=== PATIENT | female | born 1970 | race Caucasian/White ===

== ENCOUNTER → 2016-08-11 | Outpatient (CLI) | payer BC ==
[2014-04-24 13:10] VITALS: BP 114/76
[~2016-08-11] MED LIST: ALPR1TAB2 PO; ATOR40TA59 PO; CARV12.52 PO; CYCL10TA2 PO; DILT120T4 PO; FLUT1DIS IH; MONT10TA6 PO; PROM25TA10 PO; TOPI100T39 PO; [UNRECOGNIZED DRUG - CODE] TP
--- NOTE | 2016-08-11 14:25 | RAD ---
DATE: 08/11/16 EXAM: DIGITAL DIAGNOSTIC BILATERAL HISTORY: Nipple retraction on the right side while laying down. Patient had a cyst aspiration in the left breast recently COMPARISON: Screening mammogram from [facility] performed on 07/22/15 This study was interpreted with the benefit of Computerized Aided Detection (CAD). TECHNIQUE: CC and MLO views of both breasts are obtained FINDINGS: The breast tissue density is [B, ] . Heterogeneously dense breast parenchyma. There are no dominant suspicious masses, suspicious microcalcifications or evidence of architectural distortion. Stable appearing calcifications and nodularities are redemonstrated in both breasts. Skin and nipples are intact IMPRESSION: Benign findings. In regards to symptoms of nipple retraction while laying down, patient may be followed up clinically. BI-RADS CATEGORY: 2 BENIGN FINDING(S) RECOMMENDED FOLLOW-UP: 12M 12 MONTH FOLLOW-UP PQRS compliance statement: Patient information was entered into a reminder system with a target due date for the next mammogram. Mammography is a sensitive method for finding small breast cancers, but it does not detect them all and is not a substitute for careful clinical examination. A negative mammogram does not negate a clinically suspicious finding and should not result in delay in biopsying a clinically suspicious abnormality. "Our facility is accredited by the [employer] Mammography Program."
--- NOTE | 2016-08-11 14:44 | RAD ---
DATE: 08/11/16 EXAM: Digital diagnostic bilateral mammogram and right breast ultrasound HISTORY: Nipple retraction on the right side while laying down. Patient had a cyst aspiration in the left breast recently COMPARISON: Screening mammogram from [facility] performed on 07/22/15 Bilateral mammogram This study was interpreted with the benefit of Computerized Aided Detection (CAD). TECHNIQUE: CC and MLO views of both breasts are obtained FINDINGS: The breast tissue density is [B, ] . Heterogeneously dense breast parenchyma. There are no dominant suspicious masses, suspicious microcalcifications or evidence of architectural distortion. Stable appearing calcifications and nodularities are redemonstrated in both breasts. Skin and nipples are intact Right breast ultrasound: Target sonographic evaluation of the retroareolar region of the right breast is performed and images are obtained. Normal fibroglandular densities are seen. No solid or cystic mass lesions are identified. IMPRESSION: Benign bilateral mammograms and right breast ultrasound. In regards to symptoms of nipple retraction while laying down, patient may be followed up clinically. BI-RADS CATEGORY: 2 BENIGN FINDING(S) RECOMMENDED FOLLOW-UP: 12M 12 MONTH FOLLOW-UP PQRS compliance statement: Patient information was entered into a reminder system with a target due date for the next mammogram. Mammography is a sensitive method for finding small breast cancers, but it does not detect them all and is not a substitute for careful clinical examination. A negative mammogram does not negate a clinically suspicious finding and should not result in delay in biopsying a clinically suspicious abnormality. "Our facility is accredited by the [employer] Mammography Program."
== END | disposition home or self-care (01) ==
LOC: MAMMO 13:04
PROVIDERS: ATTEND Surgery
DX: N64.53 Retraction of nipple (principal); R92.0 Mammographic microcalcification found on diagnostic imaging of breast
CPT/HCPCS: 76641; G0204; 77066

== ENCOUNTER → 2016-12-17 | Outpatient (CLI) | payer BC ==
[2014-04-24 13:10] VITALS: BP 114/76
[~2016-12-17] MED LIST changes: -TOPI100T39 PO; +TOPI100T42 PO
--- NOTE | 2016-12-17 10:34 | RAD ---
DATE: 12/17/2016 EXAM: DIGITAL DIAGNOSTIC LT HISTORY: Follow-up COMPARISON: 08/11/2016. Note is made of a Susan's examination in June 29, 2016 This study was interpreted with the benefit of Computerized Aided Detection (CAD). FINDINGS: Breast Density: SCATTERED The breast parenchyma shows scattered fibroglandular densities. Breast parenchyma level B. There is not been a significant change in the appearance of the breast. Subtle calcifications on the cc view behind the nipple are noted appearing similar. 2 nodular densities medially in the breast on the CC view appear unchanged new Follow-up bilateral examination suggested in June of this year IMPRESSION: Benign findings BI-RADS CATEGORY: 2 BENIGN FINDING(S) RECOMMENDED FOLLOW-UP: 6M 6 MONTH FOLLOW-UP PQRS compliance statement: Patient information was entered into a reminder system with a target due date 06/28/2017 for the next mammogram. Mammography is a sensitive method for finding small breast cancers, but it does not detect them all and is not a substitute for careful clinical examination. A negative mammogram does not negate a clinically suspicious finding and should not result in delay in biopsying a clinically suspicious abnormality. "Our facility is accredited by the [employer] Mammography Program."
== END | disposition home or self-care (01) ==
LOC: MAMMO 10:06
PROVIDERS: ATTEND Surgery
DX: R92.0 Mammographic microcalcification found on diagnostic imaging of breast (principal)
CPT/HCPCS: G0206; 77065

== ENCOUNTER → 2017-08-01 | Outpatient (CLI) | payer BC | END | disposition home or self-care (01) | LOC: MAMMO 13:27 | DX: Z12.31 Encounter for screening mammogram for malignant neoplasm of breast (principal) | CPT/HCPCS: 77067 ==

== ENCOUNTER → 2017-08-05 | Outpatient (CLI) | payer BC | END | disposition home or self-care (01) | LOC: MAMMO 10:52 | DX: N60.02 Solitary cyst of left breast (principal) | CPT/HCPCS: 76641; 77065 ==

== ENCOUNTER → 2017-08-12 | Outpatient (CLI) | payer BC | END | disposition home or self-care (01) | LOC: US 10:12 | DX: N63.20 Unspecified lump in the left breast, unspecified quadrant (principal) | CPT/HCPCS: 19081; 76942; 77065; 88305; 88361; C1713 ==

== ENCOUNTER 2017-08-25 07:43 | Day surgery (SDC) | payer BC ==
[~2017-08-25 07:43] MED LIST changes: -ALPR1TAB2 PO; -ATOR40TA59 PO; -CARV12.52 PO; -CYCL10TA2 PO; -DILT120T4 PO; -FLUT1DIS IH; +HYDROmorphone 2 MG/ML VIAL IV; +LIDOCAINE 1% PF 2 ML VIAL. ID; -MONT10TA6 PO; +PROCHLORPERAZINE 10 MG/2 ML VIAL. IV; -PROM25TA10 PO; -TOPI100T42 PO; -[UNRECOGNIZED DRUG - CODE] TP; +fentaNYL PF VIAL 100 MCG/2 ML VIAL IV
[2017-08-25] MEDS: IV RINGERS,LACTATED 1000ML 1,000 ML IV ×2 (08:10)
[2017-08-25] MEDS ORDERED: PROPOFOL 20 ML IV ×4 (09:29→10:42)
[2017-08-25] MEDS ORDERED: ROCURONIUM 50 MG/5 ML VIAL. ×2 (09:29)
[2017-08-25] MEDS ORDERED: LIDOCAINE 2% PF Vial for OR 5 ML VIAL. ×2 (09:29)
[2017-08-25] MEDS ORDERED: MIDAZOLAM HCL/PF 2 MG/2 ML VIAL. ×2 (09:30)
[2017-08-25] MEDS ORDERED: fentaNYL PF VIAL 100 MCG/2 ML VIAL ×2 (09:30)
[2017-08-25] MEDS: LIDOCAINE WITH 8.4% SOD BICARB 3 ML DISP.SYRIN. INJ ×2 (09:30)
[2017-08-25] MEDS ORDERED: SUCCINYLCHOLINE 200 MG/10 ML VIAL. ×2 (09:30)
[2017-08-25] MEDS: ISOSULFAN BLUE 50 MG/5 ML VIAL. SQ ×2 (10:35)
[2017-08-25] MEDS ORDERED: ePHEDrine PF IN SALINE 50 MG/5 ML DISP.SYRIN IV (10:38)
[2017-08-25] MEDS ORDERED: ONDANSETRON PF 4 MG/2 ML VIAL. ×2 (10:42)
[2017-08-25] MEDS ORDERED: FAMOTIDINE 20 MG/2 ML VIAL ×2 (10:42)
[2017-08-25] MEDS ORDERED: DEXAMETHASONE SOD PHOS 20 MG/5 ML VIAL. ×2 (10:42)
[2017-08-25] MEDS: fentaNYL PF VIAL 100 MCG/2 ML VIAL IV ×8 (12:13→13:04)
[2017-08-25] MEDS: MORPHINE SULFATE 2 MG/ML DISP.SYRIN. IV ×4 (12:35→12:47)
[2017-08-25] MEDS: ONDANSETRON PF 4 MG/2 ML VIAL. IV ×2 (12:53)
[2017-08-25] MEDS: oxyCODONE/APAP 5/325 1 TAB TABLET PO ×2 (13:07)
== END 2017-08-25 13:53 | disposition home or self-care (01) ==
LOC: SURG 07:43
DX: C50.912 Malignant neoplasm of unspecified site of left female breast (principal); E78.00 Pure hypercholesterolemia, unspecified; I10 Essential (primary) hypertension; E66.9 Obesity, unspecified; M19.90 Unspecified osteoarthritis, unspecified site; F41.9 Anxiety disorder, unspecified; F32.9 Major depressive disorder, single episode, unspecified; F17.200 Nicotine dependence, unspecified, uncomplicated; Z72.0 Tobacco use; Z86.69 Personal history of other diseases of the nervous system and sense organs; Z98.890 Other specified postprocedural states; Z90.710 Acquired absence of both cervix and uterus; Z87.39 Personal history of other diseases of the musculoskeletal system and connective tissue
CPT/HCPCS: 38525; 38792; 88307; 88342; 96374; A4215; A9541; J0330; J0690; J1100; J2250; J2270; J2405; J2704; J3010; Q9968; S0028

== ENCOUNTER → 2017-09-15 | Outpatient (CLI) | payer BC ==
[2017-09-15] MEDS: IOHEXOL 240 MG/ML 50ML VIAL. PO (08:00)
[2017-09-15] MEDS: IOHEXOL 300 MG/ML 100ML VIAL. IV (09:23)
== END | disposition home or self-care (01) ==
LOC: NM 07:40
DX: C50.912 Malignant neoplasm of unspecified site of left female breast (principal); G44.52 New daily persistent headache (NDPH); J43.9 Emphysema, unspecified; N64.89 Other specified disorders of breast; R42 Dizziness and giddiness; Z98.890 Other specified postprocedural states; Z87.891 Personal history of nicotine dependence
CPT/HCPCS: 71260; 74177; 78306; 96374; A9503; Q9966; Q9967

== ENCOUNTER → 2017-09-16 | Outpatient (CLI) | payer BC ==
[~2017-09-16] MED LIST changes: +GADOBUTROL 10 MMOL/10 ML VIAL IV; -HYDROmorphone 2 MG/ML VIAL IV; +IOHEXOL 240 MG/ML 50ML VIAL.; +IOHEXOL 300 MG/ML 100ML VIAL.; -LIDOCAINE 1% PF 2 ML VIAL. ID; -PROCHLORPERAZINE 10 MG/2 ML VIAL. IV; -fentaNYL PF VIAL 100 MCG/2 ML VIAL IV
== END | disposition home or self-care (01) ==
LOC: MRI 10:58
DX: C50.912 Malignant neoplasm of unspecified site of left female breast (principal); G43.909 Migraine, unspecified, not intractable, without status migrainosus; J34.1 Cyst and mucocele of nose and nasal sinus
CPT/HCPCS: 70553

== ENCOUNTER → 2017-09-22 | Outpatient (CLI) | payer BC | END | disposition home or self-care (01) | LOC: ECHO 10:37 | DX: C50.912 Malignant neoplasm of unspecified site of left female breast (principal) | CPT/HCPCS: 93308 ==

== ENCOUNTER 2017-10-20 08:08 | Observation (INO) | payer BC ==
[~2017-10-20 08:08] MED LIST changes: -GADOBUTROL 10 MMOL/10 ML VIAL IV; -IOHEXOL 240 MG/ML 50ML VIAL.; -IOHEXOL 300 MG/ML 100ML VIAL.; +LIDOCAINE 1% PF 2 ML VIAL. ID; +ONDANSETRON PF 4 MG/2 ML VIAL. IV; +PROCHLORPERAZINE 10 MG/2 ML VIAL. IV; +fentaNYL PF VIAL 100 MCG/2 ML VIAL IV
[2017-10-20] MEDS ORDERED: HEPARIN for IV BOLUS 10,000 UNIT/10 ML VIAL. (08:27)
[2017-10-20] MEDS ORDERED: HEPARIN PF 500 UNIT/5 ML DISP.SYRIN. IV (08:27)
[2017-10-20] MEDS ORDERED: ONDANSETRON PF 4 MG/2 ML VIAL. (09:04)
[2017-10-20] MEDS ORDERED: DEXAMETHASONE SOD PHOS 20 MG/5 ML VIAL. (09:04)
[2017-10-20] MEDS ORDERED: LIDOCAINE 1% PF 5 ML VIAL. (09:04)
[2017-10-20] MEDS ORDERED: PROPOFOL 20 ML IV ×2 (09:04→09:58)
[2017-10-20] MEDS ORDERED: MIDAZOLAM HCL/PF 2 MG/2 ML VIAL. (09:05)
[2017-10-20] MEDS ORDERED: fentaNYL PF VIAL 100 MCG/2 ML VIAL ×4 (09:06→13:55)
[2017-10-20] MEDS: IV RINGERS,LACTATED 1000ML 1,000 ML IV (09:09)
[2017-10-20] MEDS ORDERED: SUCCINYLCHOLINE 200 MG/10 ML VIAL. (09:28)
[2017-10-20] MEDS ORDERED: ROCURONIUM 50 MG/5 ML VIAL. (09:29)
[2017-10-20] MEDS ORDERED: diphenhydrAMINE 50 MG/ML VIAL (09:52)
[2017-10-20] MEDS ORDERED: KETAMINE HCL 500 MG/10 ML VIAL. (09:52)
[2017-10-20] MEDS ORDERED: ceFAZolin 2GM PREMIX 2 GM/50 ML BAG IV (10:00)
[2017-10-20] MEDS: HEPARIN for IV BOLUS 10,000 UNIT/10 ML VIAL. IV (10:04)
[2017-10-20] MEDS: HEPARIN PF 500 UNIT/5 ML DISP.SYRIN. IV (10:04)
[2017-10-20] MEDS ORDERED: PHENYLEPHRINE in 0.9% NACL PF 1 MG/10 ML SYRINGE. IV (10:21)
[2017-10-20] MEDS ORDERED: PHENYLEPHRINE 10 MG/ML VIAL. (10:28)
[2017-10-20] MEDS ORDERED: ALBUTEROL SULFATE 2.5 MG/3 ML NEBU. (11:13)
[2017-10-20] MEDS ORDERED: GLYCOPYRROLATE 1 MG/5 ML VIAL. (11:14)
[2017-10-20] MEDS: BUPIVACAINE 0.25% 50 ML VIAL. (12:33)
[2017-10-20] MEDS ORDERED: oxyCODONE/APAP 5/325 1 TAB TABLET PO (12:45)
[2017-10-20] MEDS ORDERED: ONDANSETRON PF 4 MG/2 ML VIAL. IV (12:45)
[2017-10-20] MEDS ORDERED: 0.9 % SODIUM CHLORIDE 10 ML DISP.SYRIN. IV (12:45)
[2017-10-20] MEDS: fentaNYL PF VIAL 100 MCG/2 ML VIAL IV ×3 (13:18→13:59)
[2017-10-20] MEDS ORDERED: MORPHINE SULFATE 4 MG/ML DISP.SYRIN. (13:38)
[2017-10-20] MEDS: MORPHINE SULFATE 4 MG/ML DISP.SYRIN. IV ×5 (13:44→15:57)
[2017-10-20] MEDS: IV DEXTROSE 5%-LACT RINGERS 1,000 ML IV (15:00)
[2017-10-20] MEDS: KETOROLAC 15 MG/ML VIAL. IV (16:54)
[2017-10-20] MEDS: oxyCODONE/APAP 5/325 1 TAB TABLET PO (20:04)
[2017-10-21] MEDS: KETOROLAC 15 MG/ML VIAL. IV ×3 (00:32→12:00)
[2017-10-21] MEDS: IV DEXTROSE 5%-LACT RINGERS 1,000 ML IV (01:38)
[2017-10-21] MEDS: oxyCODONE/APAP 5/325 1 TAB TABLET PO ×3 (02:38→12:14)
== END 2017-10-21 12:30 | disposition home or self-care (01) ==
LOC: SURG 08:08 → 4 NORTH 13:00
PROC: 0HBV0ZZ Excision of Bilateral Breast, Open Approach (ICD-10-PCS; principal; 2017-10-20 09:40)
DX: C50.912 Malignant neoplasm of unspecified site of left female breast (principal); Z85.3 Personal history of malignant neoplasm of breast
CPT/HCPCS: 19303; 36556; 71045; 96374; 96376; C1788; G0378; G0379; J0330; J0690; J1100; J1200; J1644; J1885; J2250; J2270; J2370; J2405; J2704; J3010; J3490; J7120; J7613

== ENCOUNTER → 2017-10-31 | Outpatient (CLI) | payer BC ==
[2017-10-31 16:29] LABS: ADD MAN DIFF? NO
[2017-10-31 16:36] LABS: BASO # 0.1 x10^3/uL (0.0-0.2); BASO % 1 % (0-3); EOS # 0.6 x10^3/uL (0.0-0.7); EOS % 5 % (0-3); HEMATOCRIT 42.1 % (36.0-47.0); HEMOGLOBIN 14.4 g/dL (12.0-15.5); LYMPH # 2.6 x10^3/uL (1.0-4.8); LYMPH % 21 % (24-48); MEAN CORPUSCULAR HEMOGLOBIN 32 pg (25-35); MEAN CORPUSCULAR HGB CONC 34 g/dL (31-37); MEAN CORPUSCULAR VOLUME 93 fL (79-100); MONO # 0.8 x10^3/uL (0.0-1.1); MONO % 7 % (0-9); NEUT # 8.3 x10^3uL (1.8-7.7); NEUT % 67 % (31-73); PLATELET COUNT 258 x10^3/uL (140-400); RED BLOOD COUNT 4.54 x10^6/uL (3.50-5.40); RED CELL DISTRIBUTION WIDTH 14.1 % (11.5-14.5); WHITE BLOOD COUNT 12.4 x10^3/uL (4.0-11.0)
[2017-10-31 17:03] LABS: ALBUMIN 3.3 g/dL (3.4-5.0); ALBUMIN/GLOBULIN RATIO 0.9 (1.0-1.7); ALK PHOS 128 U/L (46-116); ALT (SGPT) 24 U/L (14-59); ANION GAP 10 (6-14); AST (SGOT) 19 U/L (15-37); BLOOD UREA NITROGEN 10 mg/dL (7-20); BUN/CREATININE RATIO 13 (6-20); CALCIUM 8.4 mg/dL (8.5-10.1); CARBON DIOXIDE 25 mmol/L (21-32); CHLORIDE 107 mmol/L (98-107); CREATININE 0.8 mg/dL (0.6-1.0); GFR 76.9; GLUCOSE 87 mg/dL (70-99); POTASSIUM 3.9 mmol/L (3.5-5.1); SODIUM 142 mmol/L (136-145); TOTAL BILIRUBIN 0.4 mg/dL (0.2-1.0)
[2017-11-03 07:50] LABS: CA 27.29 41.1 U/mL (0.0-38.6)
== END | disposition home or self-care (01) ==
LOC: LAB 15:51
DX: C50.412 Malignant neoplasm of upper-outer quadrant of left female breast (principal); Z17.1 Estrogen receptor negative status [ER-]
CPT/HCPCS: 36415; 80053; 85025; 86300

== ENCOUNTER → 2017-11-09 | Outpatient (CLI) | payer BC | END | disposition home or self-care (01) | LOC: US 13:53 | DX: C50.412 Malignant neoplasm of upper-outer quadrant of left female breast (principal); I10 Essential (primary) hypertension; E78.5 Hyperlipidemia, unspecified; E78.00 Pure hypercholesterolemia, unspecified; J43.9 Emphysema, unspecified; Z17.1 Estrogen receptor negative status [ER-]; Z87.891 Personal history of nicotine dependence | CPT/HCPCS: 76641 ==

== ENCOUNTER → 2018-03-15 | Outpatient (CLI) | payer BC ==
[2017-10-21 07:00] VITALS: BP 104/64
[~2018-03-15] MED LIST changes: +ALPR0.254 PO; +ALPR1TAB2 PO; +AMIT50TA PO; +ATOR40TA59 PO; +CARV12.52 PO; +CARV6.252 PO; +CONTRAST GIVEN. MC PRN; +CYAN10005 PO; +CYCL10TA2 PO; +DILT120T4 PO; +ELET40TA PO; +FLUT1DIS IH; +FLUT1DIS3 IH; +FLUT9.9S NS; +GABA-586 PO; +GADOBUTROL 10 MMOL/10 ML VIAL IV ONE; +IOHEXOL 240 MG/ML 50ML VIAL. PO ONE; +IOHEXOL 300 MG/ML 100ML VIAL. IV ONE; +IPRA3AMP29 NEB; +LEVO5TAB2 PO; -LIDOCAINE 1% PF 2 ML VIAL. ID; +MONT10TA6 PO; +OMEP40CA5 PO; -ONDANSETRON PF 4 MG/2 ML VIAL. IV; +OXYC-323 PO; +OXYC10TA PO; +PIRO20CA2 PO; +PROAIR HFA8.5 GM INH; -PROCHLORPERAZINE 10 MG/2 ML VIAL. IV; +PROM25TA10 PO; +TIZA4TAB PO; +TOPI100T42 PO; +TRIA1TAB2 PO; +VENL150C6 PO; +[UNRECOGNIZED DRUG - CODE] TP; -fentaNYL PF VIAL 100 MCG/2 ML VIAL IV
--- NOTE | 2018-03-15 13:59 | RAD ---
EXAM: CT Chest, Abdomen and Pelvis with IV contrast CLINICAL HISTORY: F/U BREAST CANCER, BONE PAIN COMPARISON: 09/15/2017 TECHNIQUE: Helical CT of the chest, abdomen and pelvis was performed following the administration of intravenous contrast. Oral contrast was administered. Axial, coronal and sagittal reformatted images were generated. ---PQRS compliance statement - One or more of the following individualized dose reduction techniques were utilized for this study: 1. Automated exposure control 2. Adjustment of the mA and/or kV according to patient size 3. Use of iterative reconstruction technique--- FINDINGS: Chest: The heart is not enlarged. Right chest Port-A-Cath tip terminates in the distal SVC. Changes of bilateral mastectomy are seen. No pericardial effusion. No pleural effusion or pneumothorax. Bilateral emphysematous changes are seen. No lobar consolidation. Minimal scarring/atelectasis in the lingula. No suspicious lung nodule or mass is identified. Abdomen and Pelvis: Scattered calcified granuloma are seen within the liver. No focal liver lesion. Relative hypoattenuation of the liver relative to the spleen may be seen with hepatic steatosis. Gallbladder is normal. No biliary ductal dilatation. Spleen is normal. Adrenal glands are normal. Pancreas is atrophic without pancreatic ductal dilatation or definite associated mass. The appendix is normal. Moderate colonic stool content is seen throughout the colon. Colonic diverticula are seen without evidence of acute diverticulitis. No abdominal or pelvic ascites. No abdominal or pelvic lymphadenopathy by size criteria. The bladder is decompressed with prominence of the bladder wall. Bones: Visualized osseous structures are unremarkable. No definite aggressive osseous lesion is identified. The bones may be better assessed by PET scan or bone scan given provided clinical history of bone pain. IMPRESSION: 1. Bilateral mastectomies are seen. No evidence of metastatic disease within the thorax, abdomen or pelvis. 2. No definite aggressive osseous lesion is identified. The bones may be better assessed by PET scan or bone scan given provided clinical history of bone pain. Electronically signed by: Jr Rodriguez MD (03/15/2018 1:56 PM) [id number]
--- NOTE | 2018-03-15 14:18 | RAD ---
MRI Brain with and without contrast History: Bilateral breast cancer Technique: Multiplanar, multi sequential pre and postcontrast MR imaging was performed of the brain. Contrast: 10 cc Gadavist Comparison: September 16, 2017 Findings: There is some motion degradation. There is no new abnormal intracranial enhancement, intra-axial mass effect, midline shift, extra-axial fluid collection. Ventricular size is stable, within normal limits. There is again minimal T2 and FLAIR hyperintense abnormality such as of the left periatrial white matter and left parietal white matter, no associated enhancement. There is preservation of the major arterial flow voids at the skull base. There is again tiny old left cerebellar lacunar infarct. There are small mucous retention cyst of the right sphenoid sinus as seen previously, also mucous retention cyst right maxillary sinus up to 9 mm. There is very minimal right maxillary sinus mucosal thickening. There is slightly disconjugate gaze. Mastoid air cells are aerated. There is nonspecific heterogeneous low signal of the marrow of the clivus as seen previously. Cerebellar tonsils are normal in location. There is no new abnormality of the small pituitary gland. Impression: 1. Intercranial findings are stable, no new abnormal intracranial enhancement. Minimal T2 and FLAIR hyperintense signal abnormality of the supratentorial parenchyma is unchanged, may be due to nonspecific gliosis. 2. There is again nonspecific heterogeneous low signal of the clivus. Electronically signed by: Bassem Valente MD (03/15/2018 2:15 PM) [facility]
--- NOTE | 2018-03-15 16:58 | RAD ---
Radionuclide bone scan, 03/15/2018: HISTORY: Breast cancer Whole-body imaging was performed following IV injection of 25.1 mCi of technetium 99m MDP. Comparison is made to a study from 09/15/2017. The following findings are delineated: 1. Increased activity at the shoulders and knees is unchanged and is compatible with arthritis. 2. Activity of the radionuclide about the skeleton and major joints is otherwise symmetric. No other osseous abnormality is seen. 3. Normal activity is present in both kidneys and the bladder. IMPRESSION: Stable radionuclide bone scan without evidence of osseous metastatic disease. Electronically signed by: Chandan Maynard MD (03/15/2018 4:55 PM) [facility]
== END | disposition home or self-care (01) ==
LOC: NM 09:37
PROVIDERS: ATTEND Internal Medicine Hematology & Oncology
DX: K57.30 Diverticulosis of large intestine without perforation or abscess without bleeding (principal); K75.3 Granulomatous hepatitis, not elsewhere classified; J34.1 Cyst and mucocele of nose and nasal sinus; I10 Essential (primary) hypertension; E78.00 Pure hypercholesterolemia, unspecified; J43.9 Emphysema, unspecified; Z85.3 Personal history of malignant neoplasm of breast; Z90.710 Acquired absence of both cervix and uterus; Z87.891 Personal history of nicotine dependence; Z87.39 Personal history of other diseases of the musculoskeletal system and connective tissue; Z86.69 Personal history of other diseases of the nervous system and sense organs; Z82.49 Family history of ischemic heart disease and other diseases of the circulatory system
CPT/HCPCS: 70553; 71260; 74177; 78306; 96374; A9503; A9585

== ENCOUNTER → 2018-04-06 | Day surgery (SDC) | payer BC ==
[~2018-04-06] MED LIST changes: -CONTRAST GIVEN. MC PRN; -GADOBUTROL 10 MMOL/10 ML VIAL IV ONE; -IOHEXOL 240 MG/ML 50ML VIAL. PO ONE; -IOHEXOL 300 MG/ML 100ML VIAL. IV ONE; +LIDOCAINE 2%/EPI 1:100,000 20 ML VIAL. IJ ONE; +TRIA1TAB3 PO
[2018-04-06 07:33] VITALS: BP 100/71
--- NOTE | 2018-04-06 08:46 | PDOC4 ---
Operative Note Operative Note Date: 04/06/2018 Preoperative diagnosis: Port-A-Cath in place right chest Stopper diagnosis: Same Procedure: Removal Port-A-Cath Surgeon: Julius Specimen: Port-A-Cath Dictation: Patient is a 48-year-old female being treated for breast cancer is no longer needing chemotherapy and wishes to have her port removed. Procedure removal report was explained to the patient detail was benefits were also discussed including bleeding infection alternatives to this procedure also discussed with patient seemed understanding gave both verbal and written consent to have the procedure performed. Patient was taken to the minor was room placed in supine position area on her right chest was prepped and draped usual sterile fashion using ChloraPrep and area over the port was injected with 2% lidocaine with epinephrine once this was anesthetized incision was made 15 blade scalpel was carried down through the subtendinous tissues down to the port which was grasped with hemostat sutures were cut with the 15 blade scalpel and the port removed without any difficulties. Was sent for pathology gross inspection only. Wound was then closed in a single layer running 4-0 subcuticular Monocryl Mastisol Steri-Strips and island dressing were applied. She tolerated procedure well was discharged home in stable condition all sponge instrument needle counts listed as correct estimated blood loss less than 5 mL NIKHIL JOSHI MD Apr 06, 2018 08:46
--- NOTE | 2018-04-10 10:08 | PATHOLOGY ---
[facility] Accession Number: [id number] . 01 Material submitted: . PORT A CATH . 01 Clinical history: . No longer needs port Patient would like it back "return to [facility]" . 02 Diagnosis: Port-A-Cath (gross only) with focal attached fibroadipose tissue showing focal fibrosis and chronic inflammation. . (JPM:spa director; 04/07/2018) MBR/04/07/2018 . 02 Electronically signed: . Tu Cagle MD, Pathologist NPI- [id number] . 01 Gross description: . The specimen is received fresh, labeled "Britt Rausch, Port-A-Cath", is a purple, heart-shaped port measuring 2.5 x 2.2 x 1.0 cm with inscription "BARD", "[id number]" and inverted "TC" and an attached white single lumen tubing measuring 21.0 cm in length with a 0.1 cm diameter. Attached to the port there is a meehan-pink soft tissue measuring 1.0 x 0.5 x 0.3 cm. The soft tissue is entirely submitted in A1. Photographs are taken. ([facility]; 04/06/2018) [facility] . 02 Pathologist provided ICD-10: Z45.2 . 02 CPT . 983372 Specimen Comment: A courtesy copy of this report has been sent to Specimen Comment: [phone]. Specimen Comment: Report sent to Performed at: 01 [facility] [address], [place] [id number] MD Aki Mackey MD Phone: [phone] Performed at: 02 [facility] [address] [place], [place] [id number] MD Tu Cagle MD Phone: [phone]
== END | disposition home or self-care (01) ==
LOC: SURG 07:09
PROVIDERS: ATTEND Surgery
DX: Z45.2 Encounter for adjustment and management of vascular access device (principal); C50.919 Malignant neoplasm of unspecified site of unspecified female breast; Z79.899 Other long term (current) drug therapy; J45.909 Unspecified asthma, uncomplicated; F32.9 Major depressive disorder, single episode, unspecified; E78.00 Pure hypercholesterolemia, unspecified; I47.1 Supraventricular tachycardia; G43.909 Migraine, unspecified, not intractable, without status migrainosus; Z90.710 Acquired absence of both cervix and uterus; Z98.890 Other specified postprocedural states; Z90.13 Acquired absence of bilateral breasts and nipples; Z82.5 Family history of asthma and other chronic lower respiratory diseases; Z83.49 Family history of other endocrine, nutritional and metabolic diseases; Z82.49 Family history of ischemic heart disease and other diseases of the circulatory system; F17.210 Nicotine dependence, cigarettes, uncomplicated
CPT/HCPCS: 36590; 88300; J3490

== ENCOUNTER → 2018-05-09 | Outpatient (CLI) | payer BC ==
[2018-04-06 07:33] VITALS: BP 100/71
[~2018-05-09] MED LIST changes: -LIDOCAINE 2%/EPI 1:100,000 20 ML VIAL. IJ ONE
--- NOTE | 2018-05-09 15:47 | KCIC ---
Bone densitometry 05/09/2018 11:30 AM Indication: History of radiation therapy. Adult fracture. Comparison Study: None available Discussion: Bone Densitometry was performed with dual photon absorption of the lumbar spine and left proximal femur. Lumbar Spine: Bone average density is 0.998 g/cm2 for L1-L4. T-Score is -0.4. Left proximal femur: Bone average density is 0.986g/cm2. T-Score is 0.4. IMPRESSION: Normal bone mineral density Note: Definitions established by the World Health Organization: Normal: T-score is -1.0 or above. Osteopenia: T-score is between -1.0 and -2.5. Osteoporosis: T-score is -2.5 or below. Electronically signed by: Earl Cartagena MD (05/09/2018 3:45 PM) [facility]
== END | disposition home or self-care (01) ==
LOC: KCIC DEXA 11:47
PROVIDERS: ATTEND Internal Medicine Hematology & Oncology
DX: Z13.820 Encounter for screening for osteoporosis (principal); Z85.3 Personal history of malignant neoplasm of breast; Z92.3 Personal history of irradiation; Z87.81 Personal history of (healed) traumatic fracture; Z78.0 Asymptomatic menopausal state
CPT/HCPCS: 77080

== ENCOUNTER → 2018-08-11 | Outpatient (CLI) | payer BC ==
[2018-04-06 07:33] VITALS: BP 100/71
[~2018-08-11] MED LIST changes: +ALBU2.5V8 INH; +ALPR0.5T PO; +ANAS1TAB PO; +BUPR100T11 PO; +CARV12.511 PO; -CARV12.52 PO; +CARV6.2511 PO; -CARV6.252 PO; +CONTRAST GIVEN. MC PRN; +CYAN-25 PO; -CYAN10005 PO; +ERGO500027 PO; -GABA-586 PO; +GABA300C18 PO; +GABA600T7 PO; +IOHEXOL 240 MG/ML 50ML VIAL. PO ONE; +IOHEXOL 300 MG/ML 100ML VIAL. IV ONE; +MONT10TA49 PO; -MONT10TA6 PO; -OXYC-323 PO; +OXYC1TAB15 PO; -PROAIR HFA8.5 GM INH; -TIZA4TAB PO; +TIZA4TAB2 PO; +VENL225T PO
--- NOTE | 2018-08-11 14:27 | RAD ---
EXAM: CT Chest, Abdomen and Pelvis with IV contrast CLINICAL HISTORY: Breast cancer, restaging COMPARISON: 03/15/2018, 09/15/2017 TECHNIQUE: Helical CT of the chest, abdomen and pelvis was performed following the administration of intravenous contrast. Axial, coronal and sagittal reformatted images were generated. ---PQRS compliance statement - One or more of the following individualized dose reduction techniques were utilized for this study: 1. Automated exposure control 2. Adjustment of the mA and/or kV according to patient size 3. Use of iterative reconstruction technique--- FINDINGS: Chest: The heart is not enlarged. No pericardial effusion. No mediastinal or hilar lymphadenopathy by size criteria. No axillary lymphadenopathy. No pleural effusion or pneumothorax. Bilateral emphysematous changes are seen. A 1 cm lung nodule is seen (series 2 image 25; series 5 image 30) in the lingula, new compared to prior CT 03/15/2018. Along the mastectomy incision of the right chest wall, several nodular densities are seen with central fat density. These are suspicious for fat necrosis. The largest measures approximately 1.8 cm. Mastectomy changes are seen within the left breast. Abdomen and Pelvis: A few calcified granulomas are seen within the spleen. No focal splenic lesion. Gallbladder is normal. No biliary ductal dilatation. Calcified granuloma are seen within the spleen. Adrenal glands are normal. Pancreas is unremarkable. Symmetric nephrograms. No focal renal lesion. No hydronephrosis. Bladder is unremarkable. Moderate colonic stool content is seen. The appendix is normal. No evidence of bowel obstruction. No abdominal pelvic lymphadenopathy. No abdominal pelvic ascites. Bones: No definite aggressive osseous lesion is identified. IMPRESSION: 1. A new 1 cm lung nodule is seen within the lingula. Given history of breast cancer, this is suspicious for metastatic disease. 2. No thoracic, abdominal or pelvic lymphadenopathy. 3. Nodularity along the right mastectomy incision with central fat density, may represent fat necrosis from prior surgery. Electronically signed by: Jr Rodriguez MD (08/11/2018 2:22 PM) [facility]
--- NOTE | 2018-08-11 15:57 | RAD ---
EXAM: US right anterior chest wall DATE: 08/11/2018 2:30 PM COMPARISON: CT chest abdomen pelvis 08/11/2018 INDICATION: Mass lesion, characterize and localize TECHNIQUE: Longitudinal and transverse imaging with intermittent Doppler sampling completed with attention to right anterior chest wall FINDINGS: In the region of palpable abnormality along the anterior right chest wall in the region of the right mastectomy scar, a 1.3 x 1 cm heterogeneously hypoechoic structure with irregular posterior shadowing is seen. Immediately adjacent to this there are several additional smaller nodular hypoechoic foci measuring up to 4-6 mm. IMPRESSION: 1. At least 3 distinct nodular densities are seen along the mastectomy scar in the right anterior chest wall, the largest measuring 1.3 x 1 cm. Fat was seen within these lesions on the CT performed same day and therefore findings may represent fat necrosis given recent surgery. However if there is persistent clinical concern for recurrence, these lesions would be amenable to image guided biopsy. Electronically signed by: Jr Rodriguez MD (08/11/2018 3:52 PM) [facility]
--- NOTE | 2018-08-14 10:21 | RAD ---
Examination: BONE SCAN WHOLE BODY History: Breast CA Comparison/Correlation: 30/07/2008 CT chest abdomen and pelvis with contrast Findings: 26 mCi technetium 99m MDP was intravenously administered for purposes of whole body bone scintigraphy. Uptake of radiotracer involving bony structures is unremarkable with no suspicious osteoblastic or osteoclastic process. Kidneys are visualized. Uptake about the knees corresponding to degenerative change again seen. Impression: No abnormal uptake to suggest interval bony metastatic disease. Electronically signed by: Don Galvez MD (08/14/2018 10:16 AM) [facility]
== END | disposition home or self-care (01) ==
LOC: NM 08:47
PROVIDERS: ATTEND Internal Medicine Hematology & Oncology
DX: C50.412 Malignant neoplasm of upper-outer quadrant of left female breast (principal); J43.9 Emphysema, unspecified; R91.1 Solitary pulmonary nodule; Z17.1 Estrogen receptor negative status [ER-]
CPT/HCPCS: 71260; 74177; 76604; 78306; 96374; A9503; Q9966; Q9967

== ENCOUNTER → 2018-08-24 | Outpatient (CLI) | payer BC ==
[2018-04-06 07:33] VITALS: BP 100/71
[~2018-08-24] MED LIST changes: -ALPR0.5T PO; -ANAS1TAB PO; -BUPR100T11 PO; -CONTRAST GIVEN. MC PRN; -CYAN-25 PO; +CYAN10005 PO; -ERGO500027 PO; -IOHEXOL 240 MG/ML 50ML VIAL. PO ONE; -IOHEXOL 300 MG/ML 100ML VIAL. IV ONE; -MONT10TA49 PO; +MONT10TA6 PO; +TIZA4TAB PO; -TIZA4TAB2 PO; -VENL225T PO
--- NOTE | 2018-08-24 13:45 | RAD ---
FDG tumor localization scan, PET/CT, 08/24/2018: History: Breast cancer, lung nodule Following IV injection of 11.0 mCi of 18 F-FDG, imaging was performed from the skull base to the proximal thighs. The noncontrast CT component was performed for attenuation correction and anatomic localization purposes rather than for primary diagnosis. The patient's blood glucose level at the time of injection was 101 MG/DL. The previous CT study demonstrated a 1 cm nodule in the lingula. Unfortunately it lies near the superolateral margin of the heart. The adjacent intense myocardial FDG uptake in conjunction with heart motion and difficulties in CT registration limited evaluation of this nodule on today's study. Allowing for the misregistration the nodule does appear to be mildly hypermetabolic with a maximum SUV of 2.9. There is moderately increased activity at the left hilum on the corrected FDG images which is not present on the uncorrected images. This probably represents an attenuation correction artifact related to calcified left hilar lymph nodes. No definite hypermetabolic mediastinal or hilar FDG uptake is seen. Physiologic activity is evident in the neck. No hypermetabolic cervical adenopathy is seen. There is mildly increased activity related to the skin skin and underlying subcutaneous soft tissues in the streaky pattern at both mastectomy sites. The pattern is not masslike. This probably represents postradiation change. Normal GI tract and urinary tract activity is present in the abdomen and pelvis. No hypermetabolic abdominal or pelvic lesion is seen. The marrow activity is generally heterogeneous, perhaps related to chemotherapy. No definite focal bony lesion is seen. IMPRESSION: 1. The lingular nodule is mildly hypermetabolic, although not optimally visualized due to cardiac related artifacts. A lung metastasis is suspected. 2. Mildly increased activity bilaterally at the mastectomy sites is probably post therapeutic. 3. No other significant FDG/PET abnormality is detected.
== END | disposition home or self-care (01) ==
LOC: PETSC 08:34
PROVIDERS: ATTEND Internal Medicine Hematology & Oncology
DX: R91.1 Solitary pulmonary nodule (principal); Z85.3 Personal history of malignant neoplasm of breast
CPT/HCPCS: 78815; A9552

== ENCOUNTER → 2018-08-24 | Outpatient (CLI) | payer OTHER ==
[2018-04-06 07:33] VITALS: BP 100/71
[~2018-08-24] MED LIST changes: +ALPR0.5T PO; +ANAS1TAB PO; +BUPR100T11 PO; +ERGO500027 PO; +VENL225T PO
== END | disposition home or self-care (01) ==
LOC: PF 07:42
PROVIDERS: ATTEND Surgery
DX: J44.9 Chronic obstructive pulmonary disease, unspecified (principal); F17.210 Nicotine dependence, cigarettes, uncomplicated
CPT/HCPCS: 94010; 94729

== ENCOUNTER → 2018-08-24 | Outpatient (CLI) | payer OTHER ==
[2018-04-06 07:33] VITALS: BP 100/71
[~2018-08-24] MED LIST changes: -ALPR0.5T PO; -ANAS1TAB PO; -BUPR100T11 PO; -ERGO500027 PO; -VENL225T PO
--- NOTE | 2018-08-24 11:15 | RAD ---
AP and Lateral Views of the Chest 08/24/2018 8:58 AM Indication: LUNG NODULE SEEN ON CT, HISTORY BREAST CANCER Comparison: CT of the chest abdomen and pelvis August 11, 2018. Findings: Mild interstitial coarsening is noted, similar comparison study. No new focal consolidation or infiltrate is identified. Heart size is normal. There is no evidence of pneumothorax or pleural effusion. No acute osseous abnormalities are identified. Impression: No radiographic evidence of acute cardiopulmonary process. Electronically signed by: Earl Cartagena MD (08/24/2018 11:12 AM) [facility]
--- NOTE | 2018-08-24 11:27 | RAD ---
AP and lateral view of the right knee 08/24/2018 8:58 AM Indication: RIGHT KNEE PAIN, ARTHRITIS Comparison: None Findings: There is no acute fracture or dislocation. Articular surfaces are uninterrupted and smooth. Soft tissues are unremarkable. Impression: No evidence of acute osseous abnormality. Electronically signed by: Earl Cartagena MD (08/24/2018 11:24 AM) [id number]
== END | disposition home or self-care (01) ==
LOC: RAD 07:48
PROVIDERS: ATTEND Surgery
DX: J43.9 Emphysema, unspecified (principal); M25.561 Pain in right knee; J98.4 Other disorders of lung; Z85.3 Personal history of malignant neoplasm of breast
CPT/HCPCS: 71046; 73560

== ENCOUNTER 2018-09-06 10:38 | Day surgery (SDC) | payer BC ==
[~2018-09-06] VITALS: Ht 165.1 cm; Wt 93.4 kg
[~2018-09-06 10:38] MED LIST changes: +ALPR0.5T PO; +ANAS1TAB PO; +BUPR100T11 PO; +ERGO500027 PO; +HYDROmorphone 2 MG/ML VIAL IV PRN; +IV RINGERS,LACTATED 1000ML 1,000 ML IV SCH; +LIDOCAINE 1% PF 2 ML VIAL. ID PRN; +MORPHINE SULFATE 4 MG/ML VIAL. IV PRN; +ONDANSETRON PF 4 MG/2 ML VIAL. IV PRN; +PROCHLORPERAZINE 10 MG/2 ML VIAL. IV PRN; +VENL225T PO; +fentaNYL PF VIAL 100 MCG/2 ML VIAL IV PRN
[2018-09-06] MEDS ORDERED: fentaNYL PF VIAL 100 MCG/2 ML VIAL ONE (11:51)
[2018-09-06] MEDS ORDERED: DEXAMETHASONE SOD PHOS 20 MG/5 ML VIAL. ONE (11:52)
[2018-09-06] MEDS ORDERED: MIDAZOLAM HCL/PF 2 MG/2 ML VIAL. ONE (11:52)
[2018-09-06] MEDS ORDERED: ONDANSETRON PF 4 MG/2 ML VIAL. ONE (11:52)
[2018-09-06] MEDS ORDERED: LIDOCAINE 2% PF 5 ML VIAL. ONE (11:52)
[2018-09-06] MEDS ORDERED: PROPOFOL 20 ML IV ONE (11:52)
[2018-09-06] MEDS ORDERED: BUPIVACAINE-EPI 0.25%-1:200000 MPF 30 ML VIAL. ONE (12:20)
[2018-09-06] MEDS ORDERED: HYDROcodone/APAP 5/325MG 1 TAB TABLET ONE (13:41)
[2018-09-06 14:20] VITALS: BP 106/68
--- NOTE | 2018-09-06 14:51 | PDOC4 ---
Operative Note Operative Note Date: 09/06/2018 Preoperative diagnosis: Right chest wall mass Postoperative diagnosis: Same Procedure: Excision of right chest wall mass Surgeon: Julius Specimen: Right chest wall mass Dictation: Patient is a 48-year-old female has had bilateral mastectomies for breast cancer and radiation recently was found to have a mass on the right chest wall beneath the well-healed mastectomy scar. Procedure of excision of mass was explained to the patient in detail risk benefits were also discussed including bleeding infection alternatives to this procedure also discussed with the patient who seemed to understand and gave both verbal and written consent to have the procedure performed. Patient was taken to the operating room placed in supine position general anesthesia was initiated was patient was asleep and intubated her right chest wall was prepped and draped in the usual sterile fashion using ChloraPrep. An area over the mass was injected with quarter percent Marcaine with epinephrine and elliptical incision of the skin was made with 15 blade scalpel this is carried down through the subcutaneous tissue using electrocautery to provide hemostasis the mass was completely excised using electrocautery and sent for pathology. The wound was then closed in 2 layers a deep layer running 3-0 Vicryl and the skin was reapproximate for septic or Monocryl Mastisol Steri-Strips and island dressing were applied. The mass size was approximately 3 x 3 cm. Estimated blood loss 10 mL NIKHIL JOSHI MD Sep 06, 2018 14:51
[2018-09-06] MEDS ORDERED: HYDROcodone/APAP 5/325MG 1 TAB TABLET PO ONE (15:00)
--- NOTE | 2018-09-08 15:07 | PATHOLOGY ---
[facility] Accession Number: [id number] . 01 Material submitted: . RIGHT CHEST WALL MASS . 01 Clinical history: . Right chest wall mass . 02 Diagnosis: Skin and subcutaneous tissue, "chest wall mass right", excision: - Fibroadipose tissue with fat necrosis, foreign body giant cells, and focal dystrophic calcifications. - Overlying skin with no pathologic diagnosis. (SKM/db; 09/08/2018) LBQ/09/08/2018 . 02 Electronically signed: . Bo Arias MD, Pathologist NPI- [id number] . 01 Gross description: . The specimen is received in formalin, labeled "YoungShirah, chest wall mass right" and consists of a segment of firm yellow fibroadipose tissue measuring 4.7 x 3.0 x 1.8 cm with an overlying meehan skin ellipse measuring 4.3 x 1.1 cm. The margins are inked black and it is serially sectioned to reveal a possible cyst/nodule with possible necrosis and surrounding dense white-hall fibrous tissue measuring 2.3 x 1.0 x 0.9 cm that grossly abuts the black inked margin. The possible nodule/cyst is entirely submitted in A1-A6. (SDY; 09/07/2018) SYU/SYU . 02 Pathologist provided ICD-10: R22.2 . 02 CPT . 222659 Specimen Comment: A courtesy copy of this report has been sent to Specimen Comment: [phone], . Specimen Comment: Report sent to / DR GRULLON Specimen Comment: A duplicate report has been generated due to demographic updates. Performed at: 01 [facility] [address] [place] [id number] MD Aki Mackey MD Phone: [phone] Performed at: [address] [id number] MD Juvenal Esquivel MD Phone: [phone]
== END 2018-09-06 14:20 | disposition home or self-care (01) ==
LOC: SURG 10:38
PROVIDERS: ATTEND Surgery
DX: M79.89 Other specified soft tissue disorders (principal); J45.909 Unspecified asthma, uncomplicated; F32.9 Major depressive disorder, single episode, unspecified; E78.00 Pure hypercholesterolemia, unspecified; I47.1 Supraventricular tachycardia; G43.909 Migraine, unspecified, not intractable, without status migrainosus; Z90.710 Acquired absence of both cervix and uterus; Z79.899 Other long term (current) drug therapy; Z98.890 Other specified postprocedural states; Z90.13 Acquired absence of bilateral breasts and nipples; Z82.49 Family history of ischemic heart disease and other diseases of the circulatory system; Z82.5 Family history of asthma and other chronic lower respiratory diseases; Z83.49 Family history of other endocrine, nutritional and metabolic diseases; F17.210 Nicotine dependence, cigarettes, uncomplicated
CPT/HCPCS: 21552; 88307; A7015; J0696; J1100; J2001; J2250; J2405; J2704; J3010

== ENCOUNTER → 2018-11-09 | Outpatient (CLI) | payer BC ==
[~2018-11-09] MED LIST changes: -HYDROmorphone 2 MG/ML VIAL IV PRN; -IV RINGERS,LACTATED 1000ML 1,000 ML IV SCH; -LIDOCAINE 1% PF 2 ML VIAL. ID PRN; -MORPHINE SULFATE 4 MG/ML VIAL. IV PRN; -ONDANSETRON PF 4 MG/2 ML VIAL. IV PRN; -PROCHLORPERAZINE 10 MG/2 ML VIAL. IV PRN; -fentaNYL PF VIAL 100 MCG/2 ML VIAL IV PRN
--- NOTE | 2018-11-09 12:00 | RAD ---
FDG tumor localization scan, PET/CT, 11/09/2018: History: Restaging breast/lung cancer Following IV injection of 14.3 mCi of 18 F-FDG, imaging was performed from the skull base to the proximal thighs. The noncontrast CT component was performed for attenuation correction and anatomic localization purposes rather than for primary diagnosis. The patient's blood glucose level at the time of injection was 119 MG/DL. Comparison is made to a study from 08/24/2018. Physiologic activity is present in the neck. No hypermetabolic neck lesion is seen. The small pulmonary nodule evident in the lingula on the previous study has nearly completely resolved. No abnormal FDG uptake is seen in this region. There is mildly increased FDG uptake within the posterolateral aspect of the left lower lobe corresponding to faint groundglass opacities. This probably represents mild inflammation. There are 2 foci of increased activity at the left hilum, the most prominent of these lies anteriorly and corresponds to an area of reno calcification. The maximum SUV is 4.6. A similar appearance was present on the previous study. Attenuation correction artifact is probably contributing to this appearance. There is currently a second smaller focus of mildly increased FDG uptake just posterior and superior to this first area. It demonstrates a maximum SUV of 3.6. The CT component shows no mass or definite noted in this region. There is mild residual FDG uptake within the soft tissues at the right mastectomy site, likely post therapeutic in nature. Normal GI tract and urinary tract activity is present in the abdomen and pelvis. No hypermetabolic abdominal or pelvic lesion is seen. IMPRESSION: 1. Nearly complete resolution of the previously seen lingular nodule. This nodule may have been inflammatory or this may represent a favorable response to therapy. 2. Mildly hypermetabolic groundglass infiltrate in left lung base which is likely inflammatory in nature. 3. Two small foci of mildly increased activity at the left hilum, one of which is unchanged and the other is new. The findings may be reactive in nature. Metastatic disease cannot be excluded. 4. Mild persistent increased subcutaneous activity at the right mastectomy site which is likely post therapeutic.
== END | disposition home or self-care (01) ==
LOC: PETSC 08:10
PROVIDERS: ATTEND Internal Medicine Hematology & Oncology
DX: C50.412 Malignant neoplasm of upper-outer quadrant of left female breast (principal); R91.8 Other nonspecific abnormal finding of lung field; Z17.1 Estrogen receptor negative status [ER-]; Z90.11 Acquired absence of right breast and nipple
CPT/HCPCS: 78815; A9552

== ENCOUNTER → 2018-11-23 | Outpatient (CLI) | payer BC ==
--- NOTE | 2018-11-23 15:41 | RAD ---
Focused ultrasound evaluation of the chest wall 11/23/2018 INDICATION: Palpable abnormality, right chest wall. Patient status post mastectomy Discussion: Focused ultrasound evaluation of the right chest omalley performed. Static images are submitted to PACS. Immediately superior to the mastectomy scar there are 3 small nodules correlating with the area of palpable concern as indicated by the patient. The largest measures 9 mm x 8 mm x 5 mm. The second measures 4 mm x 5 mm x 3 mm. The third measures 4 mm x 5 mm x 3 mm. These could represent small cyst, slightly typical lymph nodes. Metastatic disease, or local recurrence cannot be excluded on the basis of this exam. Vaguely increased uptake is seen on this area on PET scan. IMPRESSION: 3 small subcentimeter nodules in the area of palpable concern as indicated by the patient, as described above. Differential considerations include mildly atypical lymph nodes, metastatic disease, or focal recurrence. Electronically signed by: Earl Cartagena MD (11/23/2018 3:38 PM) [id number]
== END | disposition home or self-care (01) ==
LOC: US 14:29
PROVIDERS: ATTEND Internal Medicine Hematology & Oncology
DX: R91.8 Other nonspecific abnormal finding of lung field (principal); Z17.1 Estrogen receptor negative status [ER-]; Z90.12 Acquired absence of left breast and nipple
CPT/HCPCS: 76604

== ENCOUNTER → 2019-02-22 | Outpatient (CLI) | payer BC ==
[~2019-02-22] MED LIST changes: +CYAN-25 PO; -CYAN10005 PO; +MONT10TA49 PO; -MONT10TA6 PO; -TIZA4TAB PO; +TIZA4TAB2 PO
--- NOTE | 2019-02-22 11:42 | RAD ---
CLINICAL HISTORY: Breast cancer-type restaging INDICATION: Restaging. COMPARISON: Head CT 11/27/2018, 08/24/2018, CT chest abdomen pelvis 08/11/2018 TECHNIQUE: Location of scan: [facility] Radiopharmaceutical Dose: 15.4 mCi F-18 FDG intravenous Blood glucose at time of study: 97 FDG uptake time = 60 minutes. Images were obtained from the top of the head to the mid thighs. A low dose, noncontrast CT study was performed for the purpose of attenuation correction and anatomic localization. FINDINGS: Head and Neck: Physiologic activity is seen within the head and neck. Dental amalgam limits evaluation of portions of the head and neck. Chest: Hypermetabolic bilateral hilar and mediastinal lymph nodes are now seen. On the left the hypermetabolic lymph nodes have SUV max of 5.5 and on the right SUV max of 4.6. Given the noncontrast low-dose CT, the hilar lymph nodes are not well delineated. A 1.2 x 1 cm precarinal lymph node has an SUV max of 5.2. Bilateral emphysematous changes are seen. Bilateral groundglass opacities are seen, possibly atelectasis or superimposed infectious/inflammatory process. These regions of groundglass opacities are mildly hypermetabolic with an SUV max of 2.6. An 8 mm lingular nodule has an SUV max of 3.3. Small left pleural effusion, new compared to 11/09/2018. SUV max of the left pleural effusion measures 1.9. Abdomen and Pelvis: Physiologic activity is seen within the renal collecting systems, liver and bowel. Calcified granuloma are seen within the spleen and liver. Moderate colonic stool content is seen. Appendix is normal. No bowel obstruction. No hypermetabolic abdominal or pelvic lymphadenopathy. 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 Numerous hypermetabolic sclerotic lesions are seen throughout the osseous structures including bilateral proximal humeri, clavicles, ribs, scapulae, vertebral bodies sacrum, pelvis and bilateral proximal femurs. A tax compliance representative hypermetabolic, sclerotic focus within the right sacrum measures 1 cm with SUV max of 4.4. Reference SUV Values: Mediastinal SUV Max: 2.3 Liver SUV Max: 2.7 IMPRESSION: 1. Bilateral groundglass airspace opacities may be seen with infectious or inflammatory process. 2. Interval increase in hypermetabolic hilar and mediastinal lymphadenopathy are favored to represent progression of metastatic disease. However given the bilateral groundglass airspace opacities, reactive lymph nodes from infectious or inflammatory process are not excluded. 3. New hypermetabolic sclerotic lesions throughout the visualized osseous structures are consistent with metastatic disease. 4. Hypermetabolic lingular nodule measuring 8 mm is favored to be metastatic. 5. There is a new left pleural effusion without increased metabolic activity. Radiation Dosimetry: The radiopharmaceutical used for this exam delivers approximately 0.7 mSv/mCi (70 mRem/mCi) Source: ICRP Publication 106 Electronically signed by: Jr Rodriguez MD (02/22/2019 11:39 AM) [facility]
== END | disposition home or self-care (01) ==
LOC: PETSC 10:24
PROVIDERS: ATTEND Internal Medicine Hematology & Oncology
DX: C50.412 Malignant neoplasm of upper-outer quadrant of left female breast (principal); J43.9 Emphysema, unspecified; R91.8 Other nonspecific abnormal finding of lung field; J90 Pleural effusion, not elsewhere classified; K75.3 Granulomatous hepatitis, not elsewhere classified; D73.89 Other diseases of spleen; M89.8X0 Other specified disorders of bone, multiple sites; Z17.1 Estrogen receptor negative status [ER-]
CPT/HCPCS: 78815; A9552

== ENCOUNTER → 2019-02-28 | Outpatient (CLI) | payer BC ==
[~2019-02-28] MED LIST changes: +FAMO40TA57 PO; +GADOTERATE 7.5 MMOL/15ML VIAL. IVP ONE; +PROC10TA57 PO; +TOPI100T8 PO
--- NOTE | 2019-02-28 12:40 | RAD ---
MRI Brain with and without contrast History: Breast cancer, new bone cancer Technique: Multiplanar, multi sequential pre and postcontrast MR imaging was performed of the brain. Comparison: March 15, 2018 Findings: There is mild motion There is no evidence of recent infarct or cytotoxic edema. The ventricles, sulci, and cisterns are within normal limits in size and configuration. There is no significant midline shift, intraaxial mass effect, or focal abnormal extra-axial fluid collection. There is mild T2 and FLAIR hyperintense signal of the supratentorial parenchyma as seen previously such as of the left periatrial and parietal white matter and of the right frontal deep white matter. There is again tiny old left cerebellar lacunar infarct. There is no nodular parenchymal or leptomeningeal enhancement. There is preservation of the major intracranial flow-voids at the skull base. The cerebellar tonsils are normal in location. There is no significant abnormality of the pineal gland or pituitary gland. There is mucous retention cyst of the right sphenoid sinus, larger in interval up to 1.5 cm. There are also small bilateral maxillary sinus mucous retention cysts greater than previously, largest on the right about 1 cm. There is minimal fluid of the right mastoid air cells now present aerated on the left. There is some increased heterogeneity of the clivus concerning for underlying marrow replacing lesion. Impression: 1. There is no new abnormal intracranial enhancement. Minimal nonenhancing T2 and FLAIR hyperintense signal of the supratentorial parenchyma is overall similar, findings which may be due to nonspecific gliosis. 2. There is increased heterogeneity of the marrow of the clivus concerning for underlying marrow replacing lesion given history. Electronically signed by: Bassem Valente MD (02/28/2019 12:36 PM) [id number]
== END | disposition home or self-care (01) ==
LOC: MRI 11:08
PROVIDERS: ATTEND Internal Medicine Hematology & Oncology
DX: C50.412 Malignant neoplasm of upper-outer quadrant of left female breast (principal); I63.81 Other cerebral infarction due to occlusion or stenosis of small artery; J34.1 Cyst and mucocele of nose and nasal sinus; Z17.1 Estrogen receptor negative status [ER-]; Z87.891 Personal history of nicotine dependence; Z92.21 Personal history of antineoplastic chemotherapy
CPT/HCPCS: 70553; A9575

== ENCOUNTER 2019-03-06 08:29 | Outpatient (CLI) | payer BC ==
[2019-03-06] VITALS (12 sets, daily range): BP systolic 86–121; BP diastolic 49–72
[~2019-03-06] VITALS: Ht 162.6 cm; Wt 92.1 kg
[~2019-03-06 08:29] MED LIST changes: -FAMO40TA57 PO; -GADOTERATE 7.5 MMOL/15ML VIAL. IVP ONE; -PROC10TA57 PO; -TOPI100T8 PO
[2019-03-06 08:51] LABS: BASO # 0.1 x10^3/uL (0.0-0.2); BASO % 1 % (0-3); EOS # 0.6 x10^3/uL (0.0-0.7); EOS % 5 % (0-3); HEMOGLOBIN 14.7 g/dL (12.0-15.5); LYMPH # 1.7 x10^3/uL (1.0-4.8); LYMPH % 15 % (24-48); MEAN CORPUSCULAR HEMOGLOBIN 31 pg (25-35); MEAN CORPUSCULAR HGB CONC 34 g/dL (31-37); MEAN CORPUSCULAR VOLUME 91 fL (79-100); MONO # 0.8 x10^3/uL (0.0-1.1); MONO % 7 % (0-9); NEUT # 7.8 x10^3/uL (1.8-7.7); NEUT % 72 % (31-73); PLATELET COUNT 293 x10^3/uL (140-400); RED BLOOD COUNT 4.73 x10^6/uL (3.50-5.40); RED CELL DISTRIBUTION WIDTH 14.5 % (11.5-14.5); WHITE BLOOD COUNT 10.9 x10^3/uL (4.0-11.0)
[2019-03-06] MEDS ORDERED: FAMO40TA57 PO (08:52)
[2019-03-06] MEDS ORDERED: PROC10TA57 PO (08:52)
[2019-03-06] MEDS ORDERED: TOPI100T8 PO (08:52)
[2019-03-06 09:02] LABS: CALCIUM 8.5 mg/dL (8.5-10.1); CREATININE 0.9 mg/dL (0.6-1.0); GFR 66.8; POTASSIUM 3.5 mmol/L (3.5-5.1)
[2019-03-06 09:07] LABS: PROTHROMBIN TIME PATIENT 12.2 SEC (11.7-14.0)
[2019-03-06] MEDS ORDERED: LIDOCAINE WITH 8.4% SOD BICARB 3 ML DISP.SYRIN. ONE (10:14)
[2019-03-06] MEDS ORDERED: fentaNYL PF VIAL 100 MCG/2 ML VIAL ONE (10:19)
[2019-03-06] MEDS ORDERED: MIDAZOLAM HCL/PF 2 MG/2 ML VIAL. ONE (10:19)
[2019-03-06] MEDS ORDERED: LIDOCAINE WITH 8.4% SOD BICARB 3 ML DISP.SYRIN. IJ ONE (10:30)
[2019-03-06] MEDS ORDERED: MIDAZOLAM HCL/PF 2 MG/2 ML VIAL. IV ONE (10:30)
[2019-03-06] MEDS ORDERED: fentaNYL PF VIAL 100 MCG/2 ML VIAL IV ONE (10:30)
--- NOTE | 2019-03-06 10:56 | PDOC ---
MODERATE SEDATION ASSESSMENT RISKS/ALTERNATIVES Risks/Alternatives Risks and alternatives of this type of sedation and procedure discussed with: RISK/ALTERNATIVES: Patient H & P ON CHART H & P H & P on chart and reviewed for co-morbid conditions and appropriate labs. H&P ON CHART: Yes STATUS PREG STATUS ASSESSED: Yes MEDS/ALLERGIES REVIEWED Meds/Allergies Reviewed Medications and Allergies including time and route of recently administered narcotics and sedatives. MEDS/ALLERGIES REVIEWED: Yes ASA RATING ASA RATING: II AIRWAY ASSESSMENT Airway Assessment Airway patency, oral function limitations, presence of caps, crowns, dentures, partials, and ability to extend neck assessed. AIRWAY ASSESSMENT: Yes MALLAMPATI SCORE MALLAMPATI SCORE: II PRE-SEDATION ASSESSMENT PRE-SEDATION ASSESSMENT: Yes MIKE MAYORGA MD Mar 06, 2019 10:56
--- NOTE | 2019-03-06 10:57 | PDOC ---
BRIEF OPERATIVE NOTE Pre-Op Diagnosis diffuse osseous metastases Post-Op Diagnosis same Procedure Performed CT right iliac bone biopsy Surgeon Beau Anesthesia Type: Conscious Sedation Specimens Obtained 1 x 10g core Complications No immediate MIKE MAYORGA MD Mar 06, 2019 10:57
--- NOTE | 2019-03-06 10:58 | PDOC1 ---
History and Physical Date of Procedure Date of Admission History of Present Illness Reason for Visit osseous bone metastases Past Medical History Past Medical History see nursing pre-op assessment Current Medications Current Medications Current Medications Lidocaine/Sodium Bicarbonate (Buffered Lidocaine 1%) 3 ml STK-MED ONCE .ROUTE ; Start 03/06/19 at 10:14; Stop 03/06/19 at 10:14; Status DC Midazolam HCl (Versed) 2 mg STK-MED ONCE .ROUTE ; Start 03/06/19 at 10:19; Stop 03/06/19 at 10:19; Status DC Fentanyl Citrate (Fentanyl 2ml Vial) 100 mcg STK-MED ONCE .ROUTE ; Start 03/06/19 at 10:19; Stop 03/06/19 at 10:19; Status DC Lidocaine/Sodium Bicarbonate (Buffered Lidocaine 1%) 3 ml 1X ONCE IJ ; Start 03/06/19 at 10:30; Stop 03/06/19 at 10:31; Status DC Midazolam HCl (Versed) 2 mg 1X ONCE IV ; Start 03/06/19 at 10:30; Stop 03/06/19 at 10:31; Status DC Fentanyl Citrate (Fentanyl 2ml Vial) 100 mcg 1X ONCE IV ; Start 03/06/19 at 10:30; Stop 03/06/19 at 10:31; Status DC Active Scripts Active Reported Pepcid (Famotidine) 40 Mg Tablet 40 Mg PO HS Compazine (Prochlorperazine Maleate) 10 Mg Tablet 10 Mg PO Q6HRS Topiramate 100 Mg Tablet 2 Tab PO BID Venlafaxine Hcl Er (Venlafaxine Hcl) 225 Mg Tab.er.24 1 Tab PO DAILY Anastrozole 1 Mg Tablet 1 Tab PO DAILY Xanax (Alprazolam) 0.5 Mg Tablet 1 Tab PO PRN BID PRN Gabapentin 600 Mg Tablet 300 Mg PO TID Levocetirizine Dihydrochloride 5 Mg Tablet 5 Mg PO HS Carvedilol (Carvedilol) 6.25 Mg Tablet 6.25 Mg PO BIDWMEALS Oxycodone Hcl Immed.release (Oxycodone Hcl) 10 Mg Tablet 10 Mg PO Q6HRS PRN Relpax (Eletriptan Hbr) 40 Mg Tablet 40 Mg PO PRN PRN Flonase Allergy Relief (Fluticasone Propionate) 9.9 Ml [place].susp 2 Sprays NS DAILY Duoneb 0.5-3(2.5) Mg/3 Ml (Albuterol/Ipratropium) 3 Ml Ampul.neb 3 Ml NEB QID Omeprazole 40 Mg Capsule.dr 40 Mg PO DAILY Proair Hfa Inhaler (Albuterol Sulfate) 8.5 Gm Hfa.aer.ad 1 Puff INH PRN Q6HRS PRN Advair 250-50 Diskus (Fluticasone/Salmeterol) 1 Each Disk.w.dev 1 Inh IH BID Cyclobenzaprine Hcl 10 Mg Tablet 10 Mg PO TID PRN PRN Atorvastatin Calcium 40 Mg Tablet 20 Mg PO DAILY Singulair Tablet (Montelukast Sodium) 10 Mg Tablet 10 Mg PO HS Allergies Allergies: Coded Allergies: No Known Drug Allergies (Unverified , 09/06/18) Physical Exam Vital Signs Vital Signs Date Time Temp Pulse Resp B/P (MAP) Pulse Ox O2 Delivery O2 Flow Rate FiO2 03/06/19 10:50 95 14 97 Nasal Cannula 2.0 03/06/19 08:44 97.7 121/63 (82) 97.7 Other see nursing pre-op assessment Assessment Assessment multiple osseous metastases Plan Plan CT pelvic bone biopsy MIKE MAYORGA MD Mar 06, 2019 10:58
--- NOTE | 2019-03-06 12:56 | NUR ---
Discharge Note: JAMAAL GUERRERO Discharge instructions and discharge home medications reviewed with Patient and a copy given. All questions have been answered and understanding verbalized. The following instructions and handouts were given: moderate sedation, bone biopsy Discontinued lines : R FA PIV Patient discharged to [facility]
--- NOTE | 2019-03-07 10:35 | RAD ---
Procedure: CT-guided biopsy of the right iliac bone Clinical Indication: 48-year-old with multiple blastic osseous lesions suspicious for metastatic disease. Sedation: Conscious sedation was administered with a total intraprocedural ryzu-fp-nhvi time of 20 minutes. The patient was monitored by a qualified independent observer throughout the time of sedation. Please refer to the medical record for exact doses of medications utilized to achieve moderate sedation. Antibiotics: None Sterility: All elements of maximal sterile barrier technique including the use of a cap, mask, sterile gown, sterile gloves, large sterile sheet, appropriate hand hygiene, and 2% chlorhexidine for cutaneous antisepsis (or acceptable alternative antiseptic per current guidelines) were followed for this procedure. If ultrasound guidance was utilized, sterile ultrasound techniques were followed including use of a sterile probe cover. Consent: The procedure was explained in its entirety to the patient or the patients designated manufacturers representative by a member of the treatment team, including a discussion of the risks, benefits and commonly accepted alternatives to the procedure, as well as the expected consequences of no therapy whatsoever. Discussion of the risks included, but was not limited to, those that are most frequent and those that are rare but possibly severe or life-threatening, as well as the possibility of unforeseen complications. Technique and Findings: Following informed consent, the patient was prepped and draped in usual sterile fashion. Preliminary CT scan of the area of interest was performed. 1% lidocaine was used to achieve local anesthesia. A small dermatotomy was made. Under periodic CT surveillance, a 10-gauge automated bone biopsy needle was advanced into the posterior right iliac crest and directed towards a cluster of prominent blastic lesions. A long 10-gauge core bone biopsy specimen was then preserved in formalin. Hemostasis was achieved with manual compression following removal of the needle. Complications: No immediate Impression: 1. CT-guided right iliac bone biopsy as described. PQRS Compliance Statement: One or more of the following individualized dose reduction techniques were utilized for this examination: 1. Automated exposure control 2. Adjustment of the mA and/or kV according to patient size 3. Use of iterative reconstruction technique
--- NOTE | 2019-03-09 18:06 | PATHOLOGY ---
[facility] Accession Number: [id number] . 01 Material submitted: . pelvic bone - PELVIS BONE BIOPSY . 01 Clinical history: . Pelvic bone lesion . 02 Diagnosis: Segments of bone, image guided pelvic bone core biopsies: - METASTATIC ADENOCARCINOMA, POORLY DIFFERENTIATED. SEE COMMENT. LBQ/03/08/2019 . 02 Comment: Sections of the pelvic bone image guided core biopsy reveal segments of bone. There are focal areas of marrow replacement by a metastatic epithelial neoplasm. The tumor cells are generally present in solid nests and cords within a reactive desmoplastic stroma. The tumor cells have modest amounts of eosinophilic to clear cytoplasm, and possess enlarged, rounded to ovoid nuclei containing prominent nucleoli. Other areas of the marrow show hematopoietic cellular elements. The bony trabeculae focally appear thickened and sclerotic and are focally lined by osteoblasts. A panel of immunoperoxidase stains is obtained on block A1 and yields the following results: . Cytokeratin KEIRA: Tumor cells positive Cytokeratin 7: Tumor cells positive Cytokeratin 20: Tumor cells negative Mammaglobin: Tumor cells negative BCA-225: Few tumor cells positive KOLTON-3: Tumor cells positive TTF-1: Tumor cells negative . The morphologic and immunophenotypic findings are supportive of the diagnosis of metastatic poorly differentiated adenocarcinoma and are consistent with breast origin. Results are discussed with Dr. Melo on 03/09/19. The case is also examined by Dr. Arias, who concurs with the diagnosis. (JPM/db; 03/09/2019) . Special stains performed: Immunoperoxidase stains for cytokeratin KEIRA, CK7, CK20, mammaglobin, BCA-225, KOLTON-3 and TTF-1 . 02 Electronically signed: . Tu Cagle MD, Pathologist NPI- [id number] . 01 Gross description: . The specimen is received in formalin, labeled "Britt Rausch, pelvic bone biopsy", are three cylindrical segments of meehan-brown bone measuring 1.6 cm, 0.7 cm and 0.3 cm in length and with an average 0.2 cm diameter. The specimen is entirely submitted in A1 after decalcification (Immunocal). (SWS; 03/06/2019) SHS/SHS . 02 Pathologist provided ICD-10: C41.4 . 02 CPT . 364837, U23736, C57071, 101518 Specimen Comment: A courtesy copy of this report has been sent to Specimen Comment: [phone], , . Specimen Comment: Report sent to ,DR MELO / DR GRULLON Performed at: 01 [facility] [address], [place] [id number] MD Aki Mackey MD Phone: [phone] Performed at: 02 [facility] [address] [place], [place] [id number] MD Tu Cagle MD Phone: [phone]
== END 2019-03-06 12:58 | disposition home or self-care (01) ==
LOC: INTRAD 08:29
PROVIDERS: ATTEND Internal Medicine Hematology & Oncology
DX: M89.79 Major osseous defect, multiple sites (principal); Z79.01 Long term (current) use of anticoagulants
CPT/HCPCS: 20220; 36415; 77012; 80048; 85025; 85610; 99152; J2250; J3010

== ENCOUNTER 2019-04-16 10:04 | Outpatient (CLI) | payer BC ==
[2019-04-16] VITALS (11 sets, daily range): BP systolic 86–133; BP diastolic 62–90
[~2019-04-16] VITALS: Ht 162.6 cm; Wt 88.9 kg
[~2019-04-16 10:04] MED LIST changes: +FAMO40TA57 PO; +OMEP40CA45 PO; -OMEP40CA5 PO; +PROC10TA57 PO; +TOPI100T8 PO
[2019-04-16 10:24] LABS: BASO % 1 % (0-3); EOS # 0.2 x10^3/uL (0.0-0.7); EOS % 3 % (0-3); HEMATOCRIT 39.3 % (36.0-47.0); HEMOGLOBIN 13.3 g/dL (12.0-15.5); LYMPH # 1.3 x10^3/uL (1.0-4.8); LYMPH % 15 % (24-48); MEAN CORPUSCULAR HEMOGLOBIN 30 pg (25-35); MEAN CORPUSCULAR HGB CONC 34 g/dL (31-37); MEAN CORPUSCULAR VOLUME 88 fL (79-100); MONO # 0.7 x10^3/uL (0.0-1.1); MONO % 8 % (0-9); NEUT # 6.4 x10^3/uL (1.8-7.7); NEUT % 74 % (31-73); PLATELET COUNT 239 x10^3/uL (140-400); RED BLOOD COUNT 4.48 x10^6/uL (3.50-5.40); RED CELL DISTRIBUTION WIDTH 15.4 % (11.5-14.5); WHITE BLOOD COUNT 8.6 x10^3/uL (4.0-11.0)
[2019-04-16 10:38] LABS: PROTHROMBIN TIME PATIENT 15.5 SEC (11.7-14.0)
[2019-04-16 10:55] LABS: % BANDS 8 % (0-9); % EOS 2 % (0-5); % LYMPHS 11 % (24-48); % MONOS 9 % (0-10); % MYELOS 2 % (0-0); % PROS 1 % (0-0); % SEGS 67 % (35-66); PLT ESTIMATE ADEQUATE (ADEQUATE)
[2019-04-16 10:56] LABS: POLYCHROMASIA SLIGHT
[2019-04-16] MEDS ORDERED: OXYC20TA34 PO (11:24)
--- NOTE | 2019-04-16 12:25 | NUR ---
drainage was cloudy and yellow/slight green tinged Addendum: 04/16/19 at 1226 by ELBERT EDUARDO RN Amended: Links added.
--- NOTE | 2019-04-16 13:58 | RAD ---
Ultrasound-guided right-sided thoracentesis 04/16/2019 11:54 AM Indication: Lt Pleural Effusion Procedure: Informed consent was obtained. A timeout procedure was performed. Sonographic evaluation of the left chest was performed demonstrating moderate pleural effusion. The left posterior chest was prepped and draped in sterile fashion. 1% lidocaine without epinephrine was administered for local anesthesia. Real-time ultrasonographic guidance was used in passing a 5 [employer] catheter into the left pleural space. 1.7L of serosanguineous pleural fluid was removed. Samples of fluid were sent to the lab for further evaluation per ordering physician request. The catheter was removed and pressure held to achieve hemostasis. A sterile dressing was applied. No immediate complications were identified. The patient tolerated the procedure well. Impression: Left sided ultrasound-guided thoracentesis
--- NOTE | 2019-04-16 14:50 | NUR ---
pt upon arrival this am was visibly SOA. Her SPO2 on room air was 89-90%. applied to 2L n/c O2 which brought sats upto 92-98%. pt did not appear distressed post lt thoracentesis. she stated that she felt much better after procedure. kept O2 on pt till post cxray was done. cxray looked ok. removed O2 from pt and prepared her to be d/c'd. SPO2 on room air was ranging from 84-88% consistently. called Dr. Cartagena. he wanted pt's attending to be notified and to see if they wanted to do anything with patient. multiple calls made, messages left for pt's attending July BERNARD. Called Dr. Garcia when we could not get any response and his nurse wanted pt to go to ER because pt's SPO2's at the office had not been that low. discussed this with pt and her and she was ok with going to ER. gave pt her d/c instructions post thoracentesis and reapplied O2 at 2 l n/c. Dr. Cartagena came by to see pt before she went to ER. he agrees with going to ER to r/o any underlying issues. pt at that time admitted that she started on antibiotics Tuesday because she has been feeling so bad. Called ER and talked with Burak the charge master coordinator about what happened today and why she was coming over to ER so they could fast track her. took pt over to ER in her personal w/c accompanied by her and on 2l n/c. brought her to the front desk receptionist and gave them an update on her meds and last set of vital signs.
--- NOTE | 2019-04-16 16:31 | RAD ---
CHEST AP ONLY 04/16/2019 12:35 PM INDICATION: Postthoracentesis COMPARISON: 08/24/2018 TECHNIQUE: Portable frontal view of the chest is provided. FINDINGS: The cardiomediastinal silhouette is similar in appearance. Left perihilar nodular consolidative changes noted. There is a small left pleural effusion with adjacent compressive atelectasis versus infiltrate. No pneumothorax. No significant pulmonary vascular congestion. Right lung is clear. IMPRESSION: Status post left-sided thoracentesis without evidence for pneumothorax. There is small volume residual pleural fluid. Nodular consolidative change noted in the left perihilar distribution. Recommend follow-up to resolution. Electronically signed by: Sonia Duron MD (04/16/2019 4:29 PM) [facility]
== END 2019-04-16 14:40 | disposition home or self-care (01) ==
LOC: INTRAD 10:04
PROVIDERS: ATTEND Internal Medicine Hematology & Oncology
DX: J90 Pleural effusion, not elsewhere classified (principal); C50.412 Malignant neoplasm of upper-outer quadrant of left female breast; Z17.1 Estrogen receptor negative status [ER-]
CPT/HCPCS: 32555; 36415; 71045; 85007; 85025; 85610

== ENCOUNTER 2019-04-16 14:42 | Inpatient (IN) | payer BC ==
[~2019-04-16] VITALS: Ht 162.6 cm; Wt 92.5 kg
[~2019-04-16 14:42] MED LIST changes: +OXYC20TA34 PO
--- NOTE | 2019-04-16 15:41 | PHYS DOC ---
Past Medical History Past Medical History: Asthma, Migraines, Other Additional Past Medical Histor: CERVICAL CANCER, IRREGULAR HEARTBEAT Past Surgical History: Other Additional Past Surgical Histo: SINSUS, CERVICAL CANCER Alcohol Use: None Drug Use: None Adult General Chief Complaint Chief Complaint: OTHER COMPLAINTS [facility] HPI Patient is a 49 year old female who presents with complaining of low oxygen. Patient had bilateral breast cancer with bone metastases is in because of episodes of cough and shortness of breath diagnosed with pleural effusion. Patient had left thoracentesis for the first time today with complaining of shortness of breath before the procedure that improved after procedure. Patient had O2 sat of low 80s before and after the procedure and sent to ER for evaluation. Patient one pack a day smoker for multiple years and states she was not able to smoke for the last 1 week because of shortness of breath. Patient complaining of chronic dry cough. Patient denies chest pain, fever and chills, chest pain, history of DVT and PE. Review of Systems Review of Systems Constitutional: Denies fever or chills [] Eyes: Denies change in visual acuity, redness, or eye pain [] HENT: Denies nasal congestion or sore throat [] Respiratory: Reports cough and shortness of breath Cardiovascular: No additional information not addressed in HPI [] GI: Denies abdominal pain, nausea, vomiting, bloody stools or diarrhea [] : Denies dysuria or hematuria [] Musculoskeletal: Denies back pain or joint pain [] Integument: Denies rash or skin lesions [] Neurologic: Denies headache, focal weakness or sensory changes [] Endocrine: Denies polyuria or polydipsia [] All other systems were reviewed and found to be within normal limits, except as documented in this note. Current Medications Current Medications Current Medications Medications (Trade) Dose Ordered Sig/Farzana Start Time Stop Time Status Last Admin Dose Admin Acetaminophen (Tylenol) 500 mg PRN Q6HRS PRN 04/16/19 17:00 Acetaminophen/ Hydrocodone Bitart (Lortab 5/325) 1 tab PRN Q4HRS PRN 04/16/19 16:45 Albuterol/ Ipratropium (Duoneb) 3 ml RTQID 04/16/19 20:00 Alprazolam (Xanax) 0.25 mg PRN Q8HRS PRN 04/16/19 17:15 Atorvastatin Calcium (Lipitor) 20 mg QHS 04/16/19 21:00 Azithromycin (Zithromax) 500 mg 1X ONCE 04/16/19 17:15 04/16/19 17:16 DC 04/16/19 17:14 500 MG Budesonide (Pulmicort) 0.5 mg RTBID 04/16/19 20:00 Carvedilol (Coreg) 6.25 mg BIDWMEALS 04/16/19 17:00 Ceftriaxone Sodium (Rocephin) 1 gm 1X ONCE 04/16/19 17:30 04/16/19 17:31 Cetirizine HCl (ZyrTEC) 10 mg QHS 04/16/19 21:00 Cyclobenzaprine HCl (Flexeril) 10 mg TID PRN PRN 04/16/19 16:45 Famotidine (Pepcid) 40 mg QHS 04/16/19 21:00 Furosemide (Lasix) 40 mg 1X ONCE 04/16/19 17:30 04/16/19 17:31 Gabapentin (Neurontin) 300 mg TID 04/16/19 21:00 Guaifenesin (Robitussin Dm) 10 ml PRN Q6HRS PRN 04/16/19 16:45 Ketorolac Tromethamine (Toradol 15mg Vial) 15 mg PRN Q6HRS PRN 04/16/19 16:45 04/21/19 16:44 Methylprednisolone Sodium Succinate (SOLU-Medrol 125MG VIAL) 125 mg 1X ONCE 04/16/19 17:00 04/16/19 17:01 DC Montelukast Sodium (Singulair) 10 mg HS 04/16/19 21:00 Nicotine (Nicoderm Cq 21mg) 1 patch PRN DAILY PRN 04/16/19 17:15 Non-Formulary Medication (Fluticasone Propionate (Flonase Allergy Relief)) 2 sprays DAILY 04/17/19 09:00 UNV Non-Formulary Medication (Fluticasone/ Salmeterol (Advair 250-50 Diskus)) 1 inh BID 04/16/19 21:00 UNV Ondansetron HCl (Zofran) 4 mg PRN Q6HRS PRN 04/16/19 17:00 Oxycodone HCl (OxyCONTIN) 20 mg Q12HR 04/16/19 21:00 Oxycodone HCl (Roxicodone) 10 mg PRN Q6HRS PRN 04/16/19 17:00 Prochlorperazine Maleate (Compazine) 10 mg Q6HRS 04/16/19 18:00 Sumatriptan Succinate (Imitrex) 100 mg PRN Q2HR PRN 04/16/19 17:15 Topiramate (Topamax) 200 mg BID 04/16/19 21:00 Venlafaxine HCl (Effexor Xr) 225 mg DAILY 04/17/19 09:00 Zolpidem Tartrate (Ambien) 5 mg PRN QHS PRN 04/16/19 16:45 Allergies Allergies Allergies Coded Allergies Type Severity Reaction Last Updated Verified No Known Drug Allergies 09/06/18 No Physical Exam Physical Exam Constitutional: Well developed, well nourished, mild distress, non-toxic appearance. [] HENT: Normocephalic, atraumatic. Eyes: PERRLA, EOMI, conjunctiva normal, no discharge. [] Neck: Normal range of motion, no tenderness, supple, no stridor. [] Cardiovascular:Heart rate regular rhythm, no murmur [] Lungs & Thorax: Bilateral breath sounds clear to auscultation , O2 sat of 95% at room air[] Abdomen: Bowel sounds normal, soft, no tenderness, no masses, no pulsatile masses. [] Skin: Warm, dry, no erythema, no rash. [] Back: No tenderness, no CVA tenderness. [] Extremities: No tenderness, no cyanosis, no clubbing, ROM intact, no edema. [] Neurologic: Alert and oriented X 3, no focal deficits noted. [] Psychologic: Affect normal, judgement normal, mood normal. [] Current Patient Data Vital Signs Vital Signs Date Time Temp Pulse Resp B/P (MAP) Pulse Ox O2 Delivery O2 Flow Rate FiO2 04/16/19 15:59 90 Room Air 04/16/19 14:52 98.3 111 21 119/86 (97) 2.0 98.3 Lab Values Laboratory Tests Test 04/16/19 15:43 04/16/19 16:00 White Blood Count 8.7 x10^3/uL (4.0-11.0) Red Blood Count 4.53 x10^6/uL (3.50-5.40) Hemoglobin 13.4 g/dL (12.0-15.5) Hematocrit 39.8 % (36.0-47.0) Mean Corpuscular Volume 88 fL (79-100) Mean Corpuscular Hemoglobin 30 pg (25-35) Mean Corpuscular Hemoglobin Concent 34 g/dL (31-37) Red Cell Distribution Width 15.6 % (11.5-14.5) H Platelet Count 223 x10^3/uL (140-400) Neutrophils (%) (Auto) 76 % (31-73) H Lymphocytes (%) (Auto) 15 % (24-48) L Monocytes (%) (Auto) 7 % (0-9) Eosinophils (%) (Auto) 2 % (0-3) Basophils (%) (Auto) 1 % (0-3) Neutrophils # (Auto) 6.6 x10^3/uL (1.8-7.7) Lymphocytes # (Auto) 1.3 x10^3/uL (1.0-4.8) Monocytes # (Auto) 0.6 x10^3/uL (0.0-1.1) Eosinophils # (Auto) 0.2 x10^3/uL (0.0-0.7) Basophils # (Auto) 0.1 x10^3/uL (0.0-0.2) Sodium Level 138 mmol/L (136-145) Potassium Level 3.8 mmol/L (3.5-5.1) Chloride Level 102 mmol/L (98-107) Carbon Dioxide Level 25 mmol/L (21-32) Anion Gap 11 (6-14) Blood Urea Nitrogen 7 mg/dL (7-20) Creatinine 0.7 mg/dL (0.6-1.0) Estimated GFR (Cockcroft-Gault) 88.9 BUN/Creatinine Ratio 10 (6-20) Glucose Level 100 mg/dL (70-99) H Lactic Acid Level 1.0 mmol/L (0.4-2.0) Calcium Level 7.8 mg/dL (8.5-10.1) L Total Bilirubin 0.4 mg/dL (0.2-1.0) Aspartate Amino Transferase (AST) 48 U/L (15-37) H Alanine Aminotransferase (ALT) 50 U/L (14-59) Alkaline Phosphatase 414 U/L (46-116) H Troponin I Quantitative < 0.017 ng/mL (0.000-0.055) WK-Pcx-Y-Type Natriuretic Peptide 262 pg/mL (0-124) H Total Protein 7.0 g/dL (6.4-8.2) Albumin 2.4 g/dL (3.4-5.0) L Albumin/Globulin Ratio 0.5 (1.0-1.7) L O2 Saturation 89 % (92-99) L Arterial Blood pH 7.42 (7.35-7.45) Arterial Blood pCO2 at Patient Temp 33 mmHg (35-46) L Arterial Blood pO2 at Patient Temp 54 mmHg (75-108) L Arterial Blood HCO3 21 mmol/L (21-28) Arterial Blood Base Excess -2 mmol/L (-3-3) FiO2 21 Laboratory Tests 04/16/19 15:43 Laboratory Tests 04/16/19 15:43 EKG EKG EKG interpreted by me. EKG at 1641 showed sinus tachycardia at rate of 108, normal CT and QT intervals, poor R-wave progress in anteroseptal this, no acute ST and T-wave abnormalities. Radiology/Procedures Radiology/Procedures [facility] [address] [place] [address] IMAGING REPORT Signed PATIENT: JAMAAL GUERRERO ACCOUNT: [id number] : 1970 LOCATION: ER AGE: 49 SEX: F EXAM STATUS: REG ER ORD. PHYSICIAN: SHANDA WHITNEY MD REASON: hypoxia,low O2 SATS. PT HAD THORACENTESIS EARLIER TODAY. PROCEDURE: CHEST PA & LATERAL CHEST PA LATERAL 3:46 PM Clinical indications: Hypoxia. Low O2 saturation. Patient has had thoracentesis earlier today. Comparison: April 16, 2019 performed at 12:36 PM FINDINGS: Again seen is a small left-sided pleural effusion which is unchanged. Again seen are bilateral interstitial and nodular lung infiltrates or pulmonary edema. There has been an increase in infiltrate within the right infrahilar area and increase in infiltrate within the lateral left midlung zone and left lung base. No pneumothorax is seen. Heart size is mildly enlarged but stable. The mediastinum and pulmonary vasculature are stable. The left hilum is full and unchanged. IMPRESSION: Worsening bilateral lung infiltrates or pulmonary edema. Electronically signed by: Santiago Martinez MD (04/16/2019 4:05 PM) [id number] DICTATED and SIGNED BY: SANTIAGO MARTINEZ MD DATE: 04/16/19 1605 Course & Med Decision Making Course & Med Decision Making Pertinent Labs and Imaging studies reviewed. (See chart for details) Evaluation of patient in ER showed 49-year-old female patient with metastatic breast cancer and thoracentesis today presented to ER because of hypoxia report ed by her doctor's office. Patient had O2 sat of 89% on room air ABG 2 L of oxygen. Chest x-ray was questionable for infiltration or edema. Patient did not have any additional BMP. Patient treated with Rocephin. Patient requiring admission for further evaluation and treatment. Discussed with Dr. Madera who is in agreement with admission. Discussed findings and plan with patient and family, who acknowledge understanding and agreement. Dragon Disclaimer Dragon Disclaimer This electronic medical record was generated, in whole or in part, using a voice recognition dictation system. Departure Departure Impression: Primary Impression: Hypoxia Additional Impressions: CAP (community acquired pneumonia) Metastatic breast cancer Elevated liver function tests Hypoalbuminemia Disposition: ADMITTED INPATIENT (at 1641) Admitting Physician: PRADEEP (Dr Madera accepted admission at 1640) Condition: IMPROVED Referrals: EUSEBIO GRULLON (PCP) Problem Qualifiers Additional Impressions: CAP (community acquired pneumonia) Laterality: unspecified laterality Qualified Codes: J18.9 - Pneumonia, unspecified organism SHANDA WHITNEY MD Apr 16, 2019 15:41
[2019-04-16 15:59] LABS: BASO # 0.1 x10^3/uL (0.0-0.2); BASO % 1 % (0-3); EOS # 0.2 x10^3/uL (0.0-0.7); EOS % 2 % (0-3); HEMATOCRIT 39.8 % (36.0-47.0); HEMOGLOBIN 13.4 g/dL (12.0-15.5); LYMPH # 1.3 x10^3/uL (1.0-4.8); LYMPH % 15 % (24-48); MEAN CORPUSCULAR HEMOGLOBIN 30 pg (25-35); MEAN CORPUSCULAR HGB CONC 34 g/dL (31-37); MEAN CORPUSCULAR VOLUME 88 fL (79-100); MONO # 0.6 x10^3/uL (0.0-1.1); MONO % 7 % (0-9); NEUT # 6.6 x10^3/uL (1.8-7.7); NEUT % 76 % (31-73); PLATELET COUNT 223 x10^3/uL (140-400); RED BLOOD COUNT 4.53 x10^6/uL (3.50-5.40); RED CELL DISTRIBUTION WIDTH 15.6 % (11.5-14.5); WHITE BLOOD COUNT 8.7 x10^3/uL (4.0-11.0)
--- NOTE | 2019-04-16 16:07 | RAD ---
CHEST PA LATERAL 3:46 PM Clinical indications: Hypoxia. Low O2 saturation. Patient has had thoracentesis earlier today. Comparison: April 16, 2019 performed at 12:36 PM FINDINGS: Again seen is a small left-sided pleural effusion which is unchanged. Again seen are bilateral interstitial and nodular lung infiltrates or pulmonary edema. There has been an increase in infiltrate within the right infrahilar area and increase in infiltrate within the lateral left midlung zone and left lung base. No pneumothorax is seen. Heart size is mildly enlarged but stable. The mediastinum and pulmonary vasculature are stable. The left hilum is full and unchanged. IMPRESSION: Worsening bilateral lung infiltrates or pulmonary edema. Electronically signed by: Silviano Martinez MD (04/16/2019 4:05 PM) [id number]
[2019-04-16 16:13] LABS: CALCIUM 7.8 mg/dL (8.5-10.1); CREATININE 0.7 mg/dL (0.6-1.0); GFR 88.9; POTASSIUM 3.8 mmol/L (3.5-5.1)
[2019-04-16] MEDS ORDERED: IPRATRPIUM/ALBUTEROL 0.5/2.5MG 3 ML NEBU. NEB ONE (16:15)
[2019-04-16] MEDS ORDERED: methylPREDNISolone SOD SUCC PF 125 MG/2 ML VIAL. IV ONE ×2 (16:15→17:00)
[2019-04-16 16:16] LABS: BASE EXCESS ABG -2 mmol/L (-3-3); HCO3 ABG 21 mmol/L (21-28); PCO2 ABG 33 mmHg (35-46); PO2 ABG 54 mmHg (75-108); SAT O2 ABG 89 % (92-99)
[2019-04-16 16:18] LABS: FIO2 ABG 21
[2019-04-16 16:26] LABS: ALBUMIN 2.4 g/dL (3.4-5.0); ALBUMIN/GLOBULIN RATIO 0.5 (1.0-1.7); TOTAL BILIRUBIN 0.4 mg/dL (0.2-1.0)
[2019-04-16] MEDS ORDERED: KETOROLAC 15 MG/ML VIAL. IV PRN (16:45)
[2019-04-16] MEDS ORDERED: guaiFENesin DM 200MG/20MG 10 ML SYRUP PO PRN (16:45)
[2019-04-16] MEDS ORDERED: ZOLPIDEM 5 MG TABLET. PO PRN (16:45)
[2019-04-16] MEDS ORDERED: HYDROcodone/APAP 5/325MG 1 TAB TABLET PO PRN (16:45)
[2019-04-16] MEDS: CARVEDILOL 6.25 MG TABLET. PO SCH (17:00)
[2019-04-16] MEDS ORDERED: ONDANSETRON PF 4 MG/2 ML VIAL. IVP PRN (17:00)
[2019-04-16] MEDS ORDERED: cefTRIAXone IV Push 1 GM VIAL. IVP ONE ×2 (17:00→17:30)
[2019-04-16] MEDS ORDERED: ACETAMINOPHEN 500 MG TABLET PO PRN (17:00)
[2019-04-16] MEDS ORDERED: oxyCODONE IR 5 MG TABLET PO PRN (17:00)
--- NOTE | 2019-04-16 17:11 | PDOC1 ---
History and Physical Date of Admission Date of Admission DATE: 04/16/19 TIME: 17:04 Identification/Chief Complaint Chief Complaint low O2 sats at IR post thoracentesis Source Source: Caregiver, Chart review, Patient History of Present Illness History of Present Illness very pleasant 49 female, dx breast cancer last yr, known pt of our heme onc service, underwent chemo last yr but unfortunately now has breast ca mets to bone and has been having SOA for the longest time and underwent IR thoracentesis today as arranged by heme onc- DRAINED 1,7 L fluid left side, she felt better but had low sats at IR so sent to ER< Looks pna vs pulm edema, no personal hx chf, no abx allergy, she claims she has been feeling sick, congested for weeks, Getting IV rocephin, will add some azithro, get pulmo and courtesy consult heme onc since sent by them She is teary eyed during my encounter at ER< full code, family at bedside Past Medical History Cardiovascular: HTN, Hyperlipidemia, Other Pulmonary: No pertinent hx, Asthma CENTRAL NERVOUS SYSTEM: Migraine GI: GERD, Irritable bowel disease, Other Heme/Onc: No pertinent hx, Cancer Hepatobiliary: No pertinent hx Psych: Anxiety Musculoskeletal: low back pain Rheumatologic: Other Infectious disease: No pertinent hx Renal/: No pertinent hx Endocrine: No pertinent hx Past Surgical History Past Surgical History: Pacemaker, Mastectomy, Tonsillectomy, No pertinent history Family History Family History: Coronary Artery Disease, Diabetes, Heart Disease, Hypertension Social History Smoke: <1 pack per day ALCOHOL: none Drugs: None Current Problem List Problem List Problems Medical Problems: (1) CAP (community acquired pneumonia) Status: Acute (2) Hypoxia Status: Acute (3) Metastatic breast cancer Status: Acute Current Medications Current Medications Current Medications Albuterol/ Ipratropium (Duoneb) 3 ml 1X ONCE NEB Last administered on 04/16/19at 15:59; Start 04/16/19 at 16:15; Stop 04/16/19 at 16:16; Status DC Methylprednisolone Sodium Succinate (SOLU-Medrol 125MG VIAL) 125 mg 1X ONCE IV Last administered on 04/16/19at 16:23; Start 04/16/19 at 16:15; Stop 04/16/19 at 16:16; Status DC Ceftriaxone Sodium (Rocephin) 1 gm 1X ONCE IVP ; Start 04/16/19 at 17:00; Stop 04/16/19 at 17:01; Status DC Methylprednisolone Sodium Succinate (SOLU-Medrol 125MG VIAL) 125 mg 1X ONCE IV ; Start 04/16/19 at 17:00; Stop 04/16/19 at 17:01; Status DC Albuterol/ Ipratropium (Duoneb) 3 ml RTQID NEB ; Start 04/16/19 at 20:00 Guaifenesin (Robitussin Dm) 10 ml PRN Q6HRS PRN PO COUGH; Start 04/16/19 at 16:45 Ketorolac Tromethamine (Toradol 15mg Vial) 15 mg PRN Q6HRS PRN IV PAIN; Start 04/16/19 at 16:45; Stop 04/21/19 at 16:44 Acetaminophen/ Hydrocodone Bitart (Lortab 5/325) 1 tab PRN Q4HRS PRN PO PAIN; Start 04/16/19 at 16:45 Zolpidem Tartrate (Ambien) 5 mg PRN QHS PRN PO INSOMNIA; Start 04/16/19 at 16:45 Alprazolam (Xanax) 0.5 mg PRN BID PRN PO ANXIETY; Start 04/16/19 at 16:45 Atorvastatin Calcium (Lipitor) 20 mg QHS PO ; Start 04/16/19 at 21:00 Carvedilol (Coreg) 6.25 mg BIDWMEALS PO ; Start 04/16/19 at 17:00 Cyclobenzaprine HCl (Flexeril) 10 mg TID PRN PRN PO MUSCLE SPASMS; Start 04/16/19 at 16:45 Montelukast Sodium (Singulair) 10 mg HS PO ; Start 04/16/19 at 21:00 Topiramate (Topamax) 200 mg BID PO ; Start 04/16/19 at 21:00 Sumatriptan Succinate (Imitrex) 100 mg PRN Q2HR PRN PO MIGRAINE HEADACHE; Start 04/16/19 at 17:15 Famotidine (Pepcid) 40 mg QHS PO ; Start 04/16/19 at 21:00 Non-Formulary Medication (Fluticasone Propionate (Flonase Allergy Relief)) 2 sprays DAILY NS ; Start 04/17/19 at 09:00; Status UNV Non-Formulary Medication (Fluticasone/ Salmeterol (Advair 250-50 Diskus)) 1 inh BID IH ; Start 04/16/19 at 21:00; Status UNV Gabapentin (Neurontin) 300 mg TID PO ; Start 04/16/19 at 21:00 Cetirizine HCl (ZyrTEC) 10 mg QHS PO ; Start 04/16/19 at 21:00 Oxycodone HCl (Roxicodone) 10 mg PRN Q6HRS PRN PO PAIN; Start 04/16/19 at 17:00 Oxycodone HCl (OxyCONTIN) 20 mg Q12HR PO ; Start 04/16/19 at 21:00 Prochlorperazine Maleate (Compazine) 10 mg Q6HRS PO ; Start 04/16/19 at 18:00 Venlafaxine HCl (Effexor Xr) 225 mg DAILY PO ; Start 04/17/19 at 09:00 Ceftriaxone Sodium (Rocephin) 1 gm Q24H IVP ; Start 04/16/19 at 16:45; Status UNV Azithromycin (Zithromax) 250 mg DAILY PO ; Start 04/17/19 at 09:00 Azithromycin (Zithromax) 500 mg 1X ONCE PO ; Start 04/16/19 at 17:15; Stop 04/16/19 at 17:16 Acetaminophen (Tylenol) 500 mg PRN Q6HRS PRN PO HEADACHE / TEMP; Start 04/16/19 at 17:00 Ondansetron HCl (Zofran) 4 mg PRN Q6HRS PRN IVP NAUSEA/VOMITING; Start 04/16/19 at 17:00 Furosemide (Lasix) 40 mg 1X ONCE IVP ; Start 04/16/19 at 17:30; Stop 04/16/19 at 17:31 Ceftriaxone Sodium (Rocephin) 1 gm 1X ONCE IVP ; Start 04/16/19 at 17:30; Stop 04/16/19 at 17:31 Active Scripts Active Reported Oxycontin (Oxycodone HCl) 20 Mg Tab.er.12h 20 Mg PO BID Pepcid (Famotidine) 40 Mg Tablet 40 Mg PO HS Compazine (Prochlorperazine Maleate) 10 Mg Tablet 10 Mg PO Q6HRS Topiramate 100 Mg Tablet 2 Tab PO BID Venlafaxine Hcl Er (Venlafaxine Hcl) 225 Mg Tab.er.24 1 Tab PO DAILY Xanax (Alprazolam) 0.5 Mg Tablet 1 Tab PO PRN BID PRN Gabapentin 600 Mg Tablet 300 Mg PO TID Levocetirizine Dihydrochloride 5 Mg Tablet 5 Mg PO HS Carvedilol (Carvedilol) 6.25 Mg Tablet 6.25 Mg PO BIDWMEALS Oxycodone Hcl Immed.release (Oxycodone Hcl) 10 Mg Tablet 10 Mg PO Q6HRS PRN Relpax (Eletriptan Hbr) 40 Mg Tablet 40 Mg PO PRN PRN Flonase Allergy Relief (Fluticasone Propionate) 9.9 Ml [place].susp 2 Sprays NS DAILY Duoneb 0.5-3(2.5) Mg/3 Ml (Albuterol/Ipratropium) 3 Ml Ampul.neb 3 Ml NEB QID Proair Hfa Inhaler (Albuterol Sulfate) 8.5 Gm Hfa.aer.ad 1 Puff INH PRN Q6HRS PRN Advair 250-50 Diskus (Fluticasone/Salmeterol) 1 Each Disk.w.dev 1 Inh IH BID Cyclobenzaprine Hcl 10 Mg Tablet 10 Mg PO TID PRN PRN Atorvastatin Calcium 40 Mg Tablet 20 Mg PO DAILY Singulair Tablet (Montelukast Sodium) 10 Mg Tablet 10 Mg PO HS Allergies Allergies: Coded Allergies: No Known Drug Allergies (Unverified , 09/06/18) ROS Review of System cough, congestion, no soa, no fevers, no abd isssues Physical Exam General: Alert, Oriented X3, Cooperative, No acute distress HEENT: Atraumatic, PERRLA, EOMI, Mucous membr. moist/pink Lungs: Normal air movement, Other (no wheezing no crackles) Heart: S1S2, RRR, no thrills, no rubs, no gallops, no murmurs Breasts: Normal, Rt breast nml w/o mass, Lt breast nml w/o mass, Nipples normal Abdomen: Normal bowel sounds, Soft, No tenderness, No hepatosplenomegaly, No masses Rectal Exam: not examined PELVIC: Nml ext genitalia Extremities: No clubbing, No cyanosis, No edema, Normal pulses, No tenderness/swelling Skin: No rashes, No breakdown, No significant lesion Neuro: Normal gait, Normal speech, Strength at 5/5 X4 ext, Normal tone, Sensation intact, Cranial nerves 3-12 NL, Reflexes 2+ Psych/Mental Status: Mental status NL, Mood NL Vitals Vitals Vital Signs Date Time Temp Pulse Resp B/P (MAP) Pulse Ox O2 Delivery O2 Flow Rate FiO2 04/16/19 15:59 90 Room Air 04/16/19 14:52 98.3 111 21 119/86 (97) 2.0 98.3 Labs Labs Laboratory Tests Test 04/16/19 15:43 04/16/19 16:00 White Blood Count 8.7 x10^3/uL (4.0-11.0) Red Blood Count 4.53 x10^6/uL (3.50-5.40) Hemoglobin 13.4 g/dL (12.0-15.5) Hematocrit 39.8 % (36.0-47.0) Mean Corpuscular Volume 88 fL (79-100) Mean Corpuscular Hemoglobin 30 pg (25-35) Mean Corpuscular Hemoglobin Concent 34 g/dL (31-37) Red Cell Distribution Width 15.6 % (11.5-14.5) Platelet Count 223 x10^3/uL (140-400) Neutrophils (%) (Auto) 76 % (31-73) Lymphocytes (%) (Auto) 15 % (24-48) Monocytes (%) (Auto) 7 % (0-9) Eosinophils (%) (Auto) 2 % (0-3) Basophils (%) (Auto) 1 % (0-3) Neutrophils # (Auto) 6.6 x10^3/uL (1.8-7.7) Lymphocytes # (Auto) 1.3 x10^3/uL (1.0-4.8) Monocytes # (Auto) 0.6 x10^3/uL (0.0-1.1) Eosinophils # (Auto) 0.2 x10^3/uL (0.0-0.7) Basophils # (Auto) 0.1 x10^3/uL (0.0-0.2) Sodium Level 138 mmol/L (136-145) Potassium Level 3.8 mmol/L (3.5-5.1) Chloride Level 102 mmol/L (98-107) Carbon Dioxide Level 25 mmol/L (21-32) Anion Gap 11 (6-14) Blood Urea Nitrogen 7 mg/dL (7-20) Creatinine 0.7 mg/dL (0.6-1.0) Estimated GFR (Cockcroft-Gault) 88.9 BUN/Creatinine Ratio 10 (6-20) Glucose Level 100 mg/dL (70-99) Lactic Acid Level 1.0 mmol/L (0.4-2.0) Calcium Level 7.8 mg/dL (8.5-10.1) Total Bilirubin 0.4 mg/dL (0.2-1.0) Aspartate Amino Transf (AST/SGOT) 48 U/L (15-37) Alanine Aminotransferase (ALT/SGPT) 50 U/L (14-59) Alkaline Phosphatase 414 U/L (46-116) Troponin I Quantitative < 0.017 ng/mL (0.000-0.055) PE-Nup-F-Type Natriuretic Peptide 262 pg/mL (0-124) Total Protein 7.0 g/dL (6.4-8.2) Albumin 2.4 g/dL (3.4-5.0) Albumin/Globulin Ratio 0.5 (1.0-1.7) O2 Saturation 89 % (92-99) Arterial Blood pH 7.42 (7.35-7.45) Arterial Blood pCO2 at Patient Temp 33 mmHg (35-46) Arterial Blood pO2 at Patient Temp 54 mmHg (75-108) Arterial Blood HCO3 21 mmol/L (21-28) Arterial Blood Base Excess -2 mmol/L (-3-3) FiO2 21 Laboratory Tests Test 04/16/19 15:43 04/16/19 16:00 White Blood Count 8.7 x10^3/uL (4.0-11.0) Red Blood Count 4.53 x10^6/uL (3.50-5.40) Hemoglobin 13.4 g/dL (12.0-15.5) Hematocrit 39.8 % (36.0-47.0) Mean Corpuscular Volume 88 fL (79-100) Mean Corpuscular Hemoglobin 30 pg (25-35) Mean Corpuscular Hemoglobin Concent 34 g/dL (31-37) Red Cell Distribution Width 15.6 % (11.5-14.5) Platelet Count 223 x10^3/uL (140-400) Neutrophils (%) (Auto) 76 % (31-73) Lymphocytes (%) (Auto) 15 % (24-48) Monocytes (%) (Auto) 7 % (0-9) Eosinophils (%) (Auto) 2 % (0-3) Basophils (%) (Auto) 1 % (0-3) Neutrophils # (Auto) 6.6 x10^3/uL (1.8-7.7) Lymphocytes # (Auto) 1.3 x10^3/uL (1.0-4.8) Monocytes # (Auto) 0.6 x10^3/uL (0.0-1.1) Eosinophils # (Auto) 0.2 x10^3/uL (0.0-0.7) Basophils # (Auto) 0.1 x10^3/uL (0.0-0.2) Sodium Level 138 mmol/L (136-145) Potassium Level 3.8 mmol/L (3.5-5.1) Chloride Level 102 mmol/L (98-107) Carbon Dioxide Level 25 mmol/L (21-32) Anion Gap 11 (6-14) Blood Urea Nitrogen 7 mg/dL (7-20) Creatinine 0.7 mg/dL (0.6-1.0) Estimated GFR (Cockcroft-Gault) 88.9 BUN/Creatinine Ratio 10 (6-20) Glucose Level 100 mg/dL (70-99) Lactic Acid Level 1.0 mmol/L (0.4-2.0) Calcium Level 7.8 mg/dL (8.5-10.1) Total Bilirubin 0.4 mg/dL (0.2-1.0) Aspartate Amino Transf (AST/SGOT) 48 U/L (15-37) Alanine Aminotransferase (ALT/SGPT) 50 U/L (14-59) Alkaline Phosphatase 414 U/L (46-116) Troponin I Quantitative < 0.017 ng/mL (0.000-0.055) II-Nir-B-Type Natriuretic Peptide 262 pg/mL (0-124) Total Protein 7.0 g/dL (6.4-8.2) Albumin 2.4 g/dL (3.4-5.0) Albumin/Globulin Ratio 0.5 (1.0-1.7) O2 Saturation 89 % (92-99) Arterial Blood pH 7.42 (7.35-7.45) Arterial Blood pCO2 at Patient Temp 33 mmHg (35-46) Arterial Blood pO2 at Patient Temp 54 mmHg (75-108) Arterial Blood HCO3 21 mmol/L (21-28) Arterial Blood Base Excess -2 mmol/L (-3-3) FiO2 21 VTE Prophylaxis Ordered VTE Prophylaxis Devices: Yes VTE Pharmacological Prophylaxi: Yes Assessment/Plan Assessment/Plan HYpoxia post left sided thoracentesis, drained 1 7 L - initially planned for OP procedure but admitted fro hypoxia with abN CXR; ff up pleural fluid studies Pulm edema vs infiltrates - rocephin, add efren,. LAsix x 1 IVP but i think this is more infectious? get pulmo expertise Breast ca s.p bilateral mastectomy and chemo last yr - now with mets to bone - courtesy consult heme onc, sent to IR fo rthoracentesis FULL CODE PLAN: as above non tele bed ok seen at ER home meds i have reconciled VIRGEN KEMP MD Apr 16, 2019 17:11
[2019-04-16] MEDS ORDERED: AZITHROMYCIN 250 MG TABLET. PO ONE (17:15)
[2019-04-16] MEDS ORDERED: NICOTINE 21MG PATCH. TD PRN (17:15)
[2019-04-16] MEDS ORDERED: SUMAtriptan SUCCINATE 100 MG TABLET PO PRN (17:15)
[2019-04-16] MEDS ORDERED: ALPRAZolam 0.25 MG TABLET PO PRN (17:15)
[2019-04-16] MEDS ORDERED: FUROSEMIDE 40 MG/4 ML VIAL. IVP ONE (17:30)
[2019-04-16] MEDS: PROCHLORPERAZINE 5 MG TABLET. PO SCH (18:00)
--- NOTE | 2019-04-16 18:20 | EKG ---
[facility] [address] [place] [address] Test Date: 2019-04-16 Test Time: 16:41:00 Pat Name: JAMAAL GUERRERO Department: Room: Gender: F Manager Community: : 1970 Requested By: SHANDA WHITNEY Order Number: [id number] Reading MD: Measurements Intervals [place] Rate: 108 P: 36 SC: 128 QRS: 39 QRSD: 88 T: 32 QT: 356 QTc: 481 Interpretive Statements SINUS TACHYCARDIA QRS(T) CONTOUR ABNORMALITY CONSIDER INFERIOR MYOCARDIAL DAMAGE POSSIBLY ABNORMAL ECG RI6.01 No previous ECG available for comparison
[2019-04-16 19:30] VITALS: BP 106/62
[2019-04-16] MEDS: oxyCODONE ER 10 MG TAB.ER.12H PO SCH (20:48)
[2019-04-16] MEDS ORDERED: NON FORMULARY ITEM (Fluticasone/Salmeterol (Advair 250-50 Diskus) 1 INH) IH SCH (21:00)
[2019-04-16] MEDS: BUDESONIDE 0.5 MG/2 ML NEBU. NEB SCH (21:15)
[2019-04-16] MEDS: IPRATRPIUM/ALBUTEROL 0.5/2.5MG 3 ML NEBU. NEB SCH (21:15)
[2019-04-16] MEDS: GABAPENTIN 300 MG CAPSULE. PO SCH (22:05)
[2019-04-16] MEDS: TOPIRAMATE 100 MG TABLET. PO SCH (22:05)
[2019-04-16] MEDS: FAMOTIDINE 20 MG TABLET. PO SCH (22:05)
[2019-04-16] MEDS: ATORVASTATIN CALCIUM 20 MG TABLET PO SCH (22:06)
[2019-04-16] MEDS: CETIRIZINE HCL 10 MG TABLET. PO SCH (22:06)
[2019-04-16] MEDS: MONTELUKAST SODIUM 10 MG TABLET. PO SCH (22:06)
[2019-04-16 23:30] VITALS: BP 101/63
[2019-04-17 03:30] VITALS: BP 105/54
[2019-04-17] MEDS: PROCHLORPERAZINE 5 MG TABLET. PO SCH ×5 (06:36→23:56)
[2019-04-17 07:00] VITALS: BP 120/69
--- NOTE | 2019-04-17 07:49 | PDOC ---
PROGRESS NOTES History of Present Illness History of Present Illness VTE Prophylaxis Ordered VTE Prophylaxis Devices: Yes VTE Pharmacological Prophylaxi: Yes Assessment/Plan Assessment/Plan HYpoxia post left sided thoracentesis, drained 1 7 L - initially planned for OP procedure hypoxia with abN CXR; ff up pleural fluid studies Worsening bilateral lung infiltrates or pulmonary edema. Pulm edema vs infiltrates - rocephin, add azithro,. LAsix x 1 IVP 04/16 Breast ca s.p bilateral mastectomy and chemo last yr - now with mets to bone - courtesy consult heme onc, sent to IR for thoracentesis FULL CODE copd acute exac// bronchospasm PLAN: admit tele bed consult pulmonary home meds consult oncology duonebs 37 min pt exam, chart review, > 50% of time spent with exam, chart review, pt care coordination Vitals Vitals Vital Signs Date Time Temp Pulse Resp B/P (MAP) Pulse Ox O2 Delivery O2 Flow Rate FiO2 04/17/19 03:30 98.0 94 16 105/54 (71) 94 Nasal Cannula 2.0 98.0 Physical Exam General: Alert, Oriented X3, Cooperative, No acute distress, mild distress Heart: Regular rate, Normal S1 Lungs: Wheezing Abdomen: Normal bowel sounds, Soft, No tenderness, No hepatosplenomegaly, No masses Extremities: No clubbing, No cyanosis, No edema, Normal pulses, No tenderness/swelling Skin: No rashes, No breakdown, No significant lesion Labs LABS PATIENT: JAMAAL GUERRERO ACCOUNT: [id number] : 1970 LOCATION: ER AGE: 49 SEX: F EXAM STATUS: REG ER ORD. PHYSICIAN: SHANDA WHITNEY MD REASON: hypoxia,low O2 SATS. PT HAD THORACENTESIS EARLIER TODAY. PROCEDURE: CHEST PA & LATERAL CHEST PA LATERAL 3:46 PM Clinical indications: Hypoxia. Low O2 saturation. Patient has had thoracentesis earlier today. Comparison: April 16, 2019 performed at 12:36 PM FINDINGS: Again seen is a small left-sided pleural effusion which is unchanged. Again seen are bilateral interstitial and nodular lung infiltrates or pulmonary edema. There has been an increase in infiltrate within the right infrahilar area and increase in infiltrate within the lateral left midlung zone and left lung base. No pneumothorax is seen. Heart size is mildly enlarged but stable. The mediastinum and pulmonary vasculature are stable. The left hilum is full and unchanged. IMPRESSION: Worsening bilateral lung infiltrates or pulmonary edema. Electronically signed by: Santiago Martinez MD (04/16/2019 4:05 PM) [id number] DICTATED and SIGNED BY: SANTIAGO MARTINEZ MD DATE: 04/16/19 1605 Laboratory Tests Test 04/16/19 15:43 04/16/19 16:00 04/16/19 17:40 White Blood Count 8.7 x10^3/uL (4.0-11.0) Red Blood Count 4.53 x10^6/uL (3.50-5.40) Hemoglobin 13.4 g/dL (12.0-15.5) Hematocrit 39.8 % (36.0-47.0) Mean Corpuscular Volume 88 fL (79-100) Mean Corpuscular Hemoglobin 30 pg (25-35) Mean Corpuscular Hemoglobin Concent 34 g/dL (31-37) Red Cell Distribution Width 15.6 % (11.5-14.5) Platelet Count 223 x10^3/uL (140-400) Neutrophils (%) (Auto) 76 % (31-73) Lymphocytes (%) (Auto) 15 % (24-48) Monocytes (%) (Auto) 7 % (0-9) Eosinophils (%) (Auto) 2 % (0-3) Basophils (%) (Auto) 1 % (0-3) Neutrophils # (Auto) 6.6 x10^3/uL (1.8-7.7) Lymphocytes # (Auto) 1.3 x10^3/uL (1.0-4.8) Monocytes # (Auto) 0.6 x10^3/uL (0.0-1.1) Eosinophils # (Auto) 0.2 x10^3/uL (0.0-0.7) Basophils # (Auto) 0.1 x10^3/uL (0.0-0.2) Sodium Level 138 mmol/L (136-145) Potassium Level 3.8 mmol/L (3.5-5.1) Chloride Level 102 mmol/L (98-107) Carbon Dioxide Level 25 mmol/L (21-32) Anion Gap 11 (6-14) Blood Urea Nitrogen 7 mg/dL (7-20) Creatinine 0.7 mg/dL (0.6-1.0) Estimated GFR (Cockcroft-Gault) 88.9 BUN/Creatinine Ratio 10 (6-20) Glucose Level 100 mg/dL (70-99) Lactic Acid Level 1.0 mmol/L (0.4-2.0) Calcium Level 7.8 mg/dL (8.5-10.1) Total Bilirubin 0.4 mg/dL (0.2-1.0) Aspartate Amino Transf (AST/SGOT) 48 U/L (15-37) Alanine Aminotransferase (ALT/SGPT) 50 U/L (14-59) Alkaline Phosphatase 414 U/L (46-116) Troponin I Quantitative < 0.017 ng/mL (0.000-0.055) QI-Zrm-J-Type Natriuretic Peptide 262 pg/mL (0-124) Total Protein 7.0 g/dL (6.4-8.2) Albumin 2.4 g/dL (3.4-5.0) Albumin/Globulin Ratio 0.5 (1.0-1.7) O2 Saturation 89 % (92-99) Arterial Blood pH 7.42 (7.35-7.45) Arterial Blood pCO2 at Patient Temp 33 mmHg (35-46) Arterial Blood pO2 at Patient Temp 54 mmHg (75-108) Arterial Blood HCO3 21 mmol/L (21-28) Arterial Blood Base Excess -2 mmol/L (-3-3) FiO2 21 D-Dimer (Aditi) 6.05 ug/mlFEU (0.00-0.50) Assessment and Plan Assessmemt and Plan Problems Medical Problems: (1) CAP (community acquired pneumonia) Status: Acute (2) Elevated liver function tests Status: Acute (3) Hypoalbuminemia Status: Acute (4) Hypoxia Status: Acute (5) Metastatic breast cancer Status: Acute Comment Review of Relevant I have reviewed the following items danya (where applicable) has been applied. Labs Laboratory Tests Test 04/16/19 15:43 04/16/19 16:00 04/16/19 17:40 White Blood Count 8.7 x10^3/uL (4.0-11.0) Red Blood Count 4.53 x10^6/uL (3.50-5.40) Hemoglobin 13.4 g/dL (12.0-15.5) Hematocrit 39.8 % (36.0-47.0) Mean Corpuscular Volume 88 fL (79-100) Mean Corpuscular Hemoglobin 30 pg (25-35) Mean Corpuscular Hemoglobin Concent 34 g/dL (31-37) Red Cell Distribution Width 15.6 % (11.5-14.5) Platelet Count 223 x10^3/uL (140-400) Neutrophils (%) (Auto) 76 % (31-73) Lymphocytes (%) (Auto) 15 % (24-48) Monocytes (%) (Auto) 7 % (0-9) Eosinophils (%) (Auto) 2 % (0-3) Basophils (%) (Auto) 1 % (0-3) Neutrophils # (Auto) 6.6 x10^3/uL (1.8-7.7) Lymphocytes # (Auto) 1.3 x10^3/uL (1.0-4.8) Monocytes # (Auto) 0.6 x10^3/uL (0.0-1.1) Eosinophils # (Auto) 0.2 x10^3/uL (0.0-0.7) Basophils # (Auto) 0.1 x10^3/uL (0.0-0.2) Sodium Level 138 mmol/L (136-145) Potassium Level 3.8 mmol/L (3.5-5.1) Chloride Level 102 mmol/L (98-107) Carbon Dioxide Level 25 mmol/L (21-32) Anion Gap 11 (6-14) Blood Urea Nitrogen 7 mg/dL (7-20) Creatinine 0.7 mg/dL (0.6-1.0) Estimated GFR (Cockcroft-Gault) 88.9 BUN/Creatinine Ratio 10 (6-20) Glucose Level 100 mg/dL (70-99) Lactic Acid Level 1.0 mmol/L (0.4-2.0) Calcium Level 7.8 mg/dL (8.5-10.1) Total Bilirubin 0.4 mg/dL (0.2-1.0) Aspartate Amino Transf (AST/SGOT) 48 U/L (15-37) Alanine Aminotransferase (ALT/SGPT) 50 U/L (14-59) Alkaline Phosphatase 414 U/L (46-116) Troponin I Quantitative < 0.017 ng/mL (0.000-0.055) ZH-Ziz-Y-Type Natriuretic Peptide 262 pg/mL (0-124) Total Protein 7.0 g/dL (6.4-8.2) Albumin 2.4 g/dL (3.4-5.0) Albumin/Globulin Ratio 0.5 (1.0-1.7) O2 Saturation 89 % (92-99) Arterial Blood pH 7.42 (7.35-7.45) Arterial Blood pCO2 at Patient Temp 33 mmHg (35-46) Arterial Blood pO2 at Patient Temp 54 mmHg (75-108) Arterial Blood HCO3 21 mmol/L (21-28) Arterial Blood Base Excess -2 mmol/L (-3-3) FiO2 21 D-Dimer (Aditi) 6.05 ug/mlFEU (0.00-0.50) Laboratory Tests Test 04/16/19 15:43 04/16/19 16:00 04/16/19 17:40 White Blood Count 8.7 x10^3/uL (4.0-11.0) Red Blood Count 4.53 x10^6/uL (3.50-5.40) Hemoglobin 13.4 g/dL (12.0-15.5) Hematocrit 39.8 % (36.0-47.0) Mean Corpuscular Volume 88 fL (79-100) Mean Corpuscular Hemoglobin 30 pg (25-35) Mean Corpuscular Hemoglobin Concent 34 g/dL (31-37) Red Cell Distribution Width 15.6 % (11.5-14.5) Platelet Count 223 x10^3/uL (140-400) Neutrophils (%) (Auto) 76 % (31-73) Lymphocytes (%) (Auto) 15 % (24-48) Monocytes (%) (Auto) 7 % (0-9) Eosinophils (%) (Auto) 2 % (0-3) Basophils (%) (Auto) 1 % (0-3) Neutrophils # (Auto) 6.6 x10^3/uL (1.8-7.7) Lymphocytes # (Auto) 1.3 x10^3/uL (1.0-4.8) Monocytes # (Auto) 0.6 x10^3/uL (0.0-1.1) Eosinophils # (Auto) 0.2 x10^3/uL (0.0-0.7) Basophils # (Auto) 0.1 x10^3/uL (0.0-0.2) Sodium Level 138 mmol/L (136-145) Potassium Level 3.8 mmol/L (3.5-5.1) Chloride Level 102 mmol/L (98-107) Carbon Dioxide Level 25 mmol/L (21-32) Anion Gap 11 (6-14) Blood Urea Nitrogen 7 mg/dL (7-20) Creatinine 0.7 mg/dL (0.6-1.0) Estimated GFR (Cockcroft-Gault) 88.9 BUN/Creatinine Ratio 10 (6-20) Glucose Level 100 mg/dL (70-99) Lactic Acid Level 1.0 mmol/L (0.4-2.0) Calcium Level 7.8 mg/dL (8.5-10.1) Total Bilirubin 0.4 mg/dL (0.2-1.0) Aspartate Amino Transf (AST/SGOT) 48 U/L (15-37) Alanine Aminotransferase (ALT/SGPT) 50 U/L (14-59) Alkaline Phosphatase 414 U/L (46-116) Troponin I Quantitative < 0.017 ng/mL (0.000-0.055) MV-Zbz-T-Type Natriuretic Peptide 262 pg/mL (0-124) Total Protein 7.0 g/dL (6.4-8.2) Albumin 2.4 g/dL (3.4-5.0) Albumin/Globulin Ratio 0.5 (1.0-1.7) O2 Saturation 89 % (92-99) Arterial Blood pH 7.42 (7.35-7.45) Arterial Blood pCO2 at Patient Temp 33 mmHg (35-46) Arterial Blood pO2 at Patient Temp 54 mmHg (75-108) Arterial Blood HCO3 21 mmol/L (21-28) Arterial Blood Base Excess -2 mmol/L (-3-3) FiO2 21 D-Dimer (Aditi) 6.05 ug/mlFEU (0.00-0.50) Medications Current Medications Albuterol/ Ipratropium (Duoneb) 3 ml 1X ONCE NEB Last administered on 04/16/19at 15:59; Start 04/16/19 at 16:15; Stop 04/16/19 at 16:16; Status DC Methylprednisolone Sodium Succinate (SOLU-Medrol 125MG VIAL) 125 mg 1X ONCE IV Last administered on 04/16/19at 16:23; Start 04/16/19 at 16:15; Stop 04/16/19 at 16:16; Status DC Ceftriaxone Sodium (Rocephin) 1 gm 1X ONCE IVP Last administered on 04/16/19at 15:24; Start 04/16/19 at 17:00; Stop 04/16/19 at 17:01; Status DC Methylprednisolone Sodium Succinate (SOLU-Medrol 125MG VIAL) 125 mg 1X ONCE IV ; Start 04/16/19 at 17:00; Stop 04/16/19 at 17:01; Status DC Albuterol/ Ipratropium (Duoneb) 3 ml RTQID NEB Last administered on 04/16/19at 21:15; Start 04/16/19 at 20:00 Guaifenesin (Robitussin Dm) 10 ml PRN Q6HRS PRN PO COUGH; Start 04/16/19 at 16:45 Ketorolac Tromethamine (Toradol 15mg Vial) 15 mg PRN Q6HRS PRN IV PAIN; Start 04/16/19 at 16:45; Stop 04/21/19 at 16:44 Acetaminophen/ Hydrocodone Bitart (Lortab 5/325) 1 tab PRN Q4HRS PRN PO PAIN; Start 04/16/19 at 16:45 Zolpidem Tartrate (Ambien) 5 mg PRN QHS PRN PO INSOMNIA; Start 04/16/19 at 16:45 Alprazolam (Xanax) 0.5 mg PRN BID PRN PO ANXIETY; Start 04/16/19 at 16:45 Atorvastatin Calcium (Lipitor) 20 mg QHS PO Last administered on 04/16/19at 22 :06; Start 04/16/19 at 21:00 Carvedilol (Coreg) 6.25 mg BIDWMEALS PO ; Start 04/16/19 at 17:00 Cyclobenzaprine HCl (Flexeril) 10 mg TID PRN PRN PO MUSCLE SPASMS; Start 04/16/19 at 16:45 Montelukast Sodium (Singulair) 10 mg HS PO Last administered on 04/16/19at 22:06; Start 04/16/19 at 21:00 Topiramate (Topamax) 200 mg BID PO Last administered on 04/16/19at 22:05; Start 04/16/19 at 21:00 Sumatriptan Succinate (Imitrex) 100 mg PRN Q2HR PRN PO MIGRAINE HEADACHE; Start 04/16/19 at 17:15 Famotidine (Pepcid) 40 mg QHS PO Last administered on 04/16/19at 22:05; Start 04/16/19 at 21:00 Fluticasone Propionate (Flonase) 2 spray DAILY NS ; Start 04/17/19 at 09:00 Non-Formulary Medication (Fluticasone/ Salmeterol (Advair 250-50 Diskus)) 1 inh BID IH ; Start 04/16/19 at 21:00; Status UNV Gabapentin (Neurontin) 300 mg TID PO Last administered on 04/16/19at 22:05; Start 04/16/19 at 21:00 Cetirizine HCl (ZyrTEC) 10 mg QHS PO Last administered on 04/16/19at 22:06; Start 04/16/19 at 21:00 Oxycodone HCl (Roxicodone) 10 mg PRN Q6HRS PRN PO PAIN; Start 04/16/19 at 17:00 Oxycodone HCl (OxyCONTIN) 20 mg Q12HR PO Last administered on 04/16/19at 20:48; Start 04/16/19 at 21:00 Prochlorperazine Maleate (Compazine) 10 mg Q6HRS PO Last administered on 04/17/19at 06:36; Start 04/16/19 at 18:00 Venlafaxine HCl (Effexor Xr) 225 mg DAILY PO ; Start 04/17/19 at 09:00 Ceftriaxone Sodium (Rocephin) 1 gm Q24H IVP ; Start 04/17/19 at 17:00 Azithromycin (Zithromax) 250 mg DAILY PO ; Start 04/17/19 at 09:00 Azithromycin (Zithromax) 500 mg 1X ONCE PO Last administered on 04/16/19at 17:14; Start 04/16/19 at 17:15; Stop 04/16/19 at 17:16; Status DC Acetaminophen (Tylenol) 500 mg PRN Q6HRS PRN PO HEADACHE / TEMP; Start 04/16/19 at 17:00 Ondansetron HCl (Zofran) 4 mg PRN Q6HRS PRN IVP NAUSEA/VOMITING; Start 04/16/19 at 17:00 Furosemide (Lasix) 40 mg 1X ONCE IVP Last administered on 04/16/19at 17:54; Start 04/16/19 at 17:30; Stop 04/16/19 at 17:31; Status DC Ceftriaxone Sodium (Rocephin) 1 gm 1X ONCE IVP ; Start 04/16/19 at 17:30; Stop 04/16/19 at 17:31; Status DC Alprazolam (Xanax) 0.25 mg PRN Q8HRS PRN PO ANXIETY / AGITATION; Start 04/16/19 at 17:15; Status Cancel Budesonide (Pulmicort) 0.5 mg RTBID NEB Last administered on 04/16/19at 21:15; Start 04/16/19 at 20:00 Nicotine (Nicoderm Cq 21mg) 1 patch PRN DAILY PRN TD SMOKING CESSATION; Start 04/16/19 at 17:15 Active Scripts Active Reported Oxycontin (Oxycodone HCl) 20 Mg Tab.er.12h 20 Mg PO BID Pepcid (Famotidine) 40 Mg Tablet 40 Mg PO HS Compazine (Prochlorperazine Maleate) 10 Mg Tablet 10 Mg PO Q6HRS Topiramate 100 Mg Tablet 2 Tab PO BID Venlafaxine Hcl Er (Venlafaxine Hcl) 225 Mg Tab.er.24 1 Tab PO DAILY Xanax (Alprazolam) 0.5 Mg Tablet 1 Tab PO PRN BID PRN Gabapentin 600 Mg Tablet 300 Mg PO TID Levocetirizine Dihydrochloride 5 Mg Tablet 5 Mg PO HS Carvedilol (Carvedilol) 6.25 Mg Tablet 6.25 Mg PO BIDWMEALS Oxycodone Hcl Immed.release (Oxycodone Hcl) 10 Mg Tablet 10 Mg PO Q6HRS PRN Relpax (Eletriptan Hbr) 40 Mg Tablet 40 Mg PO PRN PRN Flonase Allergy Relief (Fluticasone Propionate) 9.9 Ml [place].susp 2 Sprays NS DAILY Duoneb 0.5-3(2.5) Mg/3 Ml (Albuterol/Ipratropium) 3 Ml Ampul.neb 3 Ml NEB QID Proair Hfa Inhaler (Albuterol Sulfate) 8.5 Gm Hfa.aer.ad 1 Puff INH PRN Q6HRS PRN Advair 250-50 Diskus (Fluticasone/Salmeterol) 1 Each Disk.w.dev 1 Inh IH BID Cyclobenzaprine Hcl 10 Mg Tablet 10 Mg PO TID PRN PRN Atorvastatin Calcium 40 Mg Tablet 20 Mg PO DAILY Singulair Tablet (Montelukast Sodium) 10 Mg Tablet 10 Mg PO HS Vitals/I & O Vital Sign - Last 24 Hours 04/16/19 04/16/19 04/16/19 04/16/19 14:52 15:30 15:59 16:00 Temp 98.3 98.3 Pulse 111 112 116 Resp 24 B/P (MAP) 119/86 (97) 153/60 (91) 119/60 (79) Pulse Ox 96 97 90 88 O2 Delivery Nasal Cannula Room Air Room Air Nasal Cannula O2 Flow Rate 2.0 2.0 04/16/19 04/16/19 04/16/19 04/16/19 16:30 17:00 18:00 19:30 Temp 98.6 98.6 Pulse 108 112 108 102 Resp 24 16 B/P (MAP) 142/71 (94) 142/78 (99) 152/82 (105) 106/62 (77) Pulse Ox 94 94 95 O2 Delivery Nasal Cannula Nasal Cannula Nasal Cannula Nasal Cannula O2 Flow Rate 2.0 2.0 2.0 2.0 04/16/19 04/16/19 04/16/19 04/16/19 20:30 20:48 21:18 21:19 Pulse Ox 82 97 O2 Delivery Nasal Cannula Nasal Cannula Room Air Nasal Cannula O2 Flow Rate 2.0 2.0 2.0 04/16/19 04/17/19 04/17/19 23:30 00:55 03:30 Temp 98.6 98.0 98.6 98.0 Pulse 97 94 Resp 16 16 B/P (MAP) 101/63 (76) 105/54 (71) Pulse Ox 98 94 O2 Delivery Nasal Cannula Nasal Cannula Nasal Cannula O2 Flow Rate 2.0 2.0 2.0 Intake and Output 04/16/19 04/16/19 04/17/19 15:00 23:00 07:00 Intake Total 0 ml Balance 0 ml NIKHIL MARTINEZ MD Apr 17, 2019 07:49
[2019-04-17] MEDS: VENLAFAXINE XR 37.5 MG CAP.ER.24H. PO SCH (08:36)
[2019-04-17] MEDS: TOPIRAMATE 100 MG TABLET. PO SCH ×2 (08:37→21:53)
[2019-04-17] MEDS: oxyCODONE ER 10 MG TAB.ER.12H PO SCH ×2 (08:38→18:00)
[2019-04-17] MEDS: AZITHROMYCIN 250 MG TABLET. PO SCH (08:38)
[2019-04-17] MEDS: GABAPENTIN 300 MG CAPSULE. PO SCH ×4 (08:38→21:54)
[2019-04-17] MEDS: CARVEDILOL 6.25 MG TABLET. PO SCH ×2 (08:39→17:00)
[2019-04-17] MEDS: CYCLOBENZAPRINE 10 MG TABLET. PO PRN (08:39)
[2019-04-17] MEDS: ALPRAZolam 0.5 MG TABLET PO PRN (08:40)
[2019-04-17] MEDS: IPRATRPIUM/ALBUTEROL 0.5/2.5MG 3 ML NEBU. NEB SCH ×4 (08:43→21:13)
[2019-04-17] MEDS: BUDESONIDE 0.5 MG/2 ML NEBU. NEB SCH ×2 (08:43→21:13)
[2019-04-17] MEDS: FLUTICASONE 50MCG/NASAL SPRAY 16GM BOTTLE. NS SCH (09:00)
[2019-04-17 11:35] VITALS: BP 90/55
--- NOTE | 2019-04-17 12:21 | NUR ---
SW following pt for dc planning. Chart reviewed and pt lives at home with spouse. Pt has PMHx breast CA and had underwent chemo tx last year. Pt was sent to the ER from IR after a thoracentesis due to low sats and is admitted for hypoxia. SW will continue to follow pt as needed and will continue evaluate dc needs.
[2019-04-17] MEDS: XELODA 500 MG PO SCH ×2 (13:02→23:03)
--- NOTE | 2019-04-17 13:08 | CONS ---
DATE OF CONSULTATION: 04/17/2019 MEDICAL ONCOLOGY CONSULTATION REQUESTING PHYSICIAN: Dr. Judith Madera. REASON FOR CONSULTATION: Metastatic breast cancer. HISTORY OF PRESENT ILLNESS: The patient is a 49-year-old female who was diagnosed with left breast cancer on 08/12/2017, high-grade triple negative and she underwent left lumpectomy and sentinel lymph node biopsy on 08/25/2017. It was staged as T2 N0 M0 stage IIA breast cancer. She underwent bilateral mastectomy on 10/20/2017 followed by adjuvant chemotherapy with Adriamycin and Cytoxan from 11/16/2017 to 01/04/2018 followed by Taxol from 01/17/2018 to 02/28/2018. PET scan on 02/22/2019 revealed increase in hilar and mediastinal lymphadenopathy and new hypermetabolic sclerotic lesions throughout the osseous structures consistent with metastatic disease. Hypermetabolic lingular nodule measured 8 mm favoring metastatic disease. There is a new left pleural effusion, but no metabolic activity. Biopsy of the pelvic bone lesion on 03/06/2019 revealed poorly differentiated metastatic adenocarcinoma that was triple negative. She was enrolled in a clinical trial and started on Xeloda on 04/13/2019 at 2000 mg twice a day for 14 days every 21 days. She did have a CT scan of the chest, abdomen and pelvis on 04/05/2019 that revealed mediastinal lymph nodes, scattered pulmonary nodules, left-sided pleural thickening with left pleural effusion, bone metastasis and liver metastasis. She underwent thoracentesis on 04/16/2019 and 1.7 liters was removed from the left side. She then became hypoxic and was admitted to [facility]. Chest x-ray performed on 04/16/2019 revealed worsening bilateral lung infiltrates or pulmonary edema. She was started on antibiotics. PAST MEDICAL AND SURGICAL HISTORY: Bronchial asthma, cancer of the cervix, hypertension, hysterectomy, sinus surgery. FAMILY HISTORY: Positive for lung cancer. SOCIAL HISTORY: She has a history of cigarette smoking. REVIEW OF SYSTEMS: A 12-point review of system was performed. Pertinent positives are mentioned in the history of present illness. Rest of the system review is negative. PHYSICAL EXAMINATION: GENERAL APPEARANCE: The patient is a 49-year-old female who is in no acute cardiorespiratory distress. VITAL SIGNS: Blood pressure 90/55, temperature 98.2. HEAD: Atraumatic, normocephalic. EYES: No icterus. NECK: Supple. CHEST: Bilaterally symmetrical. HEART: S1, S2 normal. ABDOMEN: Soft, nontender. CENTRAL NERVOUS SYSTEM: No focal deficits. LYMPHATICS: No lymphadenopathy. SKIN: No rashes. PSYCHOLOGIC: Mood and affect are appropriate. LABORATORY DATA: WBC 8.7, hemoglobin 13.4, platelet count 223,000. Creatinine 0.7. IMPRESSION AND PLAN: 1. Stage 4 breast cancer with bone metastasis, liver metastasis and left-sided pleural effusion per CT scan performed on 04/05/2019. She did have a biopsy of the pelvic bone on 03/06/2019, which revealed poorly differentiated metastatic triple negative breast cancer. She was started on chemotherapy with Xeloda 2000 mg twice a day for 14 days on every 21 days from 04/13/2019. She missed Xeloda on 04/16/2019 due to hypoxia and admission to other hospital. I have advised her to resume Xeloda from 04/17/2019. 2. Possible pneumonia. She was started on antibiotics. Consult Pulmonary Medicine. 3. Bone metastasis. She will get Xgeva as an outpatient. 4. Left-sided pleural effusion, status post thoracentesis. Continue to monitor. JEREMY MELO MD DR: ABIGAIL/manjit JOB#: [id number] / [id number]
[2019-04-17 14:19] VITALS: BP 126/76
[2019-04-17] MEDS ORDERED: IPRATRPIUM/ALBUTEROL 0.5/2.5MG 3 ML NEBU. NEB SCH (16:00)
[2019-04-17] MEDS ORDERED: methylPREDNISolone SOD SUCC PF 125 MG/2 ML VIAL. IV ONE (17:30)
--- NOTE | 2019-04-17 17:30 | PDOC ---
PULMONARY PROGRESS NOTES Vitals Vital Signs Date Time Temp Pulse Resp B/P (MAP) Pulse Ox O2 Delivery O2 Flow Rate FiO2 04/17/19 16:33 Nasal Cannula 2.0 04/17/19 14:19 98.6 103 16 126/76 (93) 96 98.6 Lungs: Wheezing Labs Laboratory Tests Test 04/16/19 15:43 04/16/19 16:00 04/16/19 17:40 White Blood Count 8.7 x10^3/uL (4.0-11.0) Red Blood Count 4.53 x10^6/uL (3.50-5.40) Hemoglobin 13.4 g/dL (12.0-15.5) Hematocrit 39.8 % (36.0-47.0) Mean Corpuscular Volume 88 fL (79-100) Mean Corpuscular Hemoglobin 30 pg (25-35) Mean Corpuscular Hemoglobin Concent 34 g/dL (31-37) Red Cell Distribution Width 15.6 % (11.5-14.5) Platelet Count 223 x10^3/uL (140-400) Neutrophils (%) (Auto) 76 % (31-73) Lymphocytes (%) (Auto) 15 % (24-48) Monocytes (%) (Auto) 7 % (0-9) Eosinophils (%) (Auto) 2 % (0-3) Basophils (%) (Auto) 1 % (0-3) Neutrophils # (Auto) 6.6 x10^3/uL (1.8-7.7) Lymphocytes # (Auto) 1.3 x10^3/uL (1.0-4.8) Monocytes # (Auto) 0.6 x10^3/uL (0.0-1.1) Eosinophils # (Auto) 0.2 x10^3/uL (0.0-0.7) Basophils # (Auto) 0.1 x10^3/uL (0.0-0.2) Sodium Level 138 mmol/L (136-145) Potassium Level 3.8 mmol/L (3.5-5.1) Chloride Level 102 mmol/L (98-107) Carbon Dioxide Level 25 mmol/L (21-32) Anion Gap 11 (6-14) Blood Urea Nitrogen 7 mg/dL (7-20) Creatinine 0.7 mg/dL (0.6-1.0) Estimated GFR (Cockcroft-Gault) 88.9 BUN/Creatinine Ratio 10 (6-20) Glucose Level 100 mg/dL (70-99) Lactic Acid Level 1.0 mmol/L (0.4-2.0) Calcium Level 7.8 mg/dL (8.5-10.1) Total Bilirubin 0.4 mg/dL (0.2-1.0) Aspartate Amino Transf (AST/SGOT) 48 U/L (15-37) Alanine Aminotransferase (ALT/SGPT) 50 U/L (14-59) Alkaline Phosphatase 414 U/L (46-116) Troponin I Quantitative < 0.017 ng/mL (0.000-0.055) VZ-Odt-I-Type Natriuretic Peptide 262 pg/mL (0-124) Total Protein 7.0 g/dL (6.4-8.2) Albumin 2.4 g/dL (3.4-5.0) Albumin/Globulin Ratio 0.5 (1.0-1.7) O2 Saturation 89 % (92-99) Arterial Blood pH 7.42 (7.35-7.45) Arterial Blood pCO2 at Patient Temp 33 mmHg (35-46) Arterial Blood pO2 at Patient Temp 54 mmHg (75-108) Arterial Blood HCO3 21 mmol/L (21-28) Arterial Blood Base Excess -2 mmol/L (-3-3) FiO2 21 D-Dimer (Aditi) 6.05 ug/mlFEU (0.00-0.50) Laboratory Tests Test 04/16/19 17:40 D-Dimer (Aditi) 6.05 ug/mlFEU (0.00-0.50) Medications Active Scripts Medications Dose Route/Sig Max Daily Dose Days Date Category Oxycontin (Oxycodone HCl) 20 Mg Tab.er.12h 20 Mg PO BID 04/16/19 Reported Pepcid (Famotidine) 40 Mg Tablet 40 Mg PO HS 03/06/19 Reported Compazine (Prochlorperazine Maleate) 10 Mg Tablet 10 Mg PO Q6HRS 03/06/19 Reported Topiramate 100 Mg Tablet 2 Tab PO BID 03/06/19 Reported Venlafaxine Hcl Er (Venlafaxine Hcl) 225 Mg Tab.er.24 1 Tab PO DAILY 09/05/18 Reported Xanax (Alprazolam) 0.5 Mg Tablet 1 Tab PO PRN BID PRN 09/05/18 Reported Gabapentin 600 Mg Tablet 300 Mg PO TID 06/09/18 Reported Levocetirizine Dihydrochloride 5 Mg Tablet 5 Mg PO HS 03/09/18 Reported Carvedilol (Carvedilol) 6.25 Mg Tablet 6.25 Mg PO BIDWMEALS 03/09/18 Reported Oxycodone Hcl Immed.release (Oxycodone Hcl) 10 Mg Tablet 10 Mg PO Q6HRS PRN 03/09/18 Reported Relpax (Eletriptan Hbr) 40 Mg Tablet 40 Mg PO PRN PRN 08/23/17 Reported Flonase Allergy Relief (Fluticasone Propionate) 9.9 Ml [place].susp 2 Sprays NS DAILY 08/23/17 Reported Duoneb 0.5-3(2.5) Mg/3 Ml (Albuterol/Ipratropium) 3 Ml Ampul.neb 3 Ml NEB QID 08/23/17 Reported Proair Hfa Inhaler (Albuterol Sulfate) 8.5 Gm Hfa.aer.ad 1 Puff INH PRN Q6HRS PRN 08/23/17 Reported Advair 250-50 Diskus (Fluticasone/Salmeterol) 1 Each Disk.w.dev 1 Inh IH BID 08/23/17 Reported Cyclobenzaprine Hcl 10 Mg Tablet 10 Mg PO TID PRN PRN 10/31/13 Reported Atorvastatin Calcium 40 Mg Tablet 20 Mg PO DAILY 10/31/13 Reported Singulair Tablet (Montelukast Sodium) 10 Mg Tablet 10 Mg PO HS 10/31/13 Reported Impression . FULL NOTE DICTATED AGREE WITH CURRENT RX WILL FOLLOW UP ON FLUID ANALYSIS SUSPECT LYMPHAGITIC SPREAD VAL PEÑA MD Apr 17, 2019 17:30
[2019-04-17] MEDS: cefTRIAXone IV Push 1 GM VIAL. IVP SCH (17:52)
[2019-04-17 19:40] VITALS: BP 115/63
--- NOTE | 2019-04-17 20:42 | CONS ---
DATE OF CONSULTATION: 04/17/2019 ATTENDING PHYSICIAN: Judith Madera MD REASON FOR CONSULTATION: The patient is seen in pulmonary consultation at the request of Dr. Garcia for possible pneumonia. HISTORY OF PRESENT ILLNESS: The patient is a 49-year-old female that was initially diagnosed with left breast cancer on 08/2017. She underwent a left lumpectomy and sentinel node biopsy on 08/25/2017. It was staged as [id number], stage 2A breast cancer, underwent bilateral mastectomy in 10/2017 followed by adjuvant chemo with Adriamycin and Cytoxan in the month of November and December followed by Taxol in the month of January to February. PET scan on 02/22/2019 revealed increased hilar and mediastinal lymphadenopathy and new hypermetabolic, sclerotic lesions throughout the osseous structures consistent with metastatic disease. There was also a new pleural effusion, had no metabolic activity. Biopsy of the pelvic bone on 03/06/2019 revealed poorly differentiated metastatic adenocarcinoma that was triple negative. The patient was enrolled in a clinical trial, started on Xeloda on 04/13/2019. She had a repeat CT chest, abdomen and pelvis on 04/05/2019 revealing mediastinal lymph nodes, scattered pulmonary nodules, left-sided pleural thickening along with pleural effusion, metastatic disease, and liver mets. The patient was admitted and underwent a thoracentesis yesterday, removing 1.7 liters of fluid, thus she became hypoxic and was admitted to the hospital. Chest x-ray revealed improvement in her left-sided effusion with worsening bilateral infiltrates. She was started on antibiotics. I was asked to see her in consultation. The patient denies fever, chills. Her appetite has been poor. She is relatively weak. She does smoke. No oxygen use at home. She has not had any frequent acute exacerbations of COPD in the past. PAST MEDICAL HISTORY: 1. COPD, tobacco dependent. 2. Cancer of the cervix. 3. Metastatic breast cancer as described above. 4. Hypertension. 5. Sinusitis. PAST SURGICAL HISTORY: Status post hysterectomy, sinus surgery, and bilateral mastectomy. FAMILY HISTORY: Positive for lung cancer. No maternal history of breast cancer. SOCIAL HISTORY: She continues to smoke. REVIEW OF SYSTEMS: CONSTITUTIONAL: No fever or chills. EYES: No change in visual acuity. HENT: No nasal congestion or sore throat. PULMONARY: As indicated above. CARDIOVASCULAR: No chest pain or pressure. GASTROINTESTINAL: No nausea, vomiting, diarrhea. GENITOURINARY: No dysuria or frequency. MUSCULOSKELETAL: No localized muscle aches or joint pains. SKIN: No new skin rashes. NEUROLOGIC: No headaches, diplopia, or blurred vision. CURRENT MEDICATIONS: List was reviewed. ALLERGIES: No known drug allergies. PHYSICAL EXAMINATION: GENERAL: The patient was a pleasant individual in no respiratory distress, on 2 liters of oxygen supplementation. HEENT: Eyes, the sclerae were nonicteric. NECK: Jugular venous distention was not elevated. No lymphadenopathy. CHEST: Full expansion. LUNGS: Coarse breath sounds, expiratory wheeze. CARDIOVASCULAR: Regular rate and rhythm with S1, S2, no S3. ABDOMEN: Soft, nontender, nondistended. EXTREMITIES: No clubbing, cyanosis. Minimal edema. NEUROLOGICAL: The patient was alert, awake, following commands. A detailed neuro exam was not performed. LABORATORY DATA: Arterial blood gas revealed a pH of 7.42, PaCO2 of 33, pO2 of 54. White count was normal. Hemoglobin and hematocrit were noted. D-dimer was elevated. IMPRESSION: 1. Acute hypoxemic respiratory failure. 2. Abnormal CT chest performed on 04/05/2019 revealing mediastinal lymph node, scattered pulmonary nodules, and left-sided pleural thickening along with pleural effusion with bony metastases and liver metastases. 3. Metastatic breast cancer as indicated above. 4. Tobacco dependent. 5. Acute nonspecific bronchitis. 6. Possible pneumonia. 7. Possible lymphangitic spread. PLAN: 1. We will empirically continue antibiotics. 2. Steroids. 3. A 6-minute walk prior to discharge. 4. Follow up on pleural fluid analysis, suspect malignant effusion. 5. Overall prognosis appears to be poor. Hopefully, the patient will start responding to the recent clinical trial started on Xeloda. 6. Continue home meds. I do appreciate the privilege in sharing in the patient's care. VAL PEÑA MD DR: DOMENICA/manjit JOB#: [id number] / [id number]
[2019-04-17] MEDS: FAMOTIDINE 20 MG TABLET. PO SCH (21:53)
[2019-04-17] MEDS: ATORVASTATIN CALCIUM 20 MG TABLET PO SCH (21:54)
[2019-04-17] MEDS: methylPREDNISolone SOD SUCC PF 125 MG/2 ML VIAL. IV SCH (21:54)
[2019-04-17] MEDS: MONTELUKAST SODIUM 10 MG TABLET. PO SCH (21:54)
[2019-04-17] MEDS: CETIRIZINE HCL 10 MG TABLET. PO SCH (21:54)
[2019-04-17 23:48] VITALS: BP 112/59
[2019-04-18 03:03] VITALS: BP 122/71
[2019-04-18] MEDS: PROCHLORPERAZINE 5 MG TABLET. PO SCH ×3 (06:15→17:49)
[2019-04-18] MEDS: methylPREDNISolone SOD SUCC PF 125 MG/2 ML VIAL. IV SCH ×3 (06:15→21:36)
[2019-04-18] MEDS: oxyCODONE ER 10 MG TAB.ER.12H PO SCH ×2 (06:16→17:50)
[2019-04-18 07:30] VITALS: BP 102/61
[2019-04-18] MEDS: CARVEDILOL 6.25 MG TABLET. PO SCH ×2 (08:00→17:00)
[2019-04-18] MEDS: FLUTICASONE 50MCG/NASAL SPRAY 16GM BOTTLE. NS SCH (09:00)
--- NOTE | 2019-04-18 09:22 | NUR ---
SS following up with discharge planning. PT recommended home with home healthcare. Nurse navigator notified and to meet with pt to discuss home healthcare and home health options. SS will continue to follow for discharge planning.
[2019-04-18] MEDS: IPRATRPIUM/ALBUTEROL 0.5/2.5MG 3 ML NEBU. NEB SCH ×4 (09:25→19:30)
[2019-04-18] MEDS: BUDESONIDE 0.5 MG/2 ML NEBU. NEB SCH ×2 (09:26→19:30)
--- NOTE | 2019-04-18 09:37 | PDOC ---
PULMONARY PROGRESS NOTES Subjective PT ASLEEP DID NOT AWAKEN HER RN REPORTS SOA AT TIMES Vitals Vital Signs Date Time Temp Pulse Resp B/P (MAP) Pulse Ox O2 Delivery O2 Flow Rate FiO2 04/18/19 09:26 95 Nasal Cannula 2.0 04/18/19 07:30 98.1 98 16 102/61 (75) 98.1 Labs Laboratory Tests Test 04/16/19 15:43 04/16/19 16:00 04/16/19 17:40 White Blood Count 8.7 x10^3/uL (4.0-11.0) Red Blood Count 4.53 x10^6/uL (3.50-5.40) Hemoglobin 13.4 g/dL (12.0-15.5) Hematocrit 39.8 % (36.0-47.0) Mean Corpuscular Volume 88 fL (79-100) Mean Corpuscular Hemoglobin 30 pg (25-35) Mean Corpuscular Hemoglobin Concent 34 g/dL (31-37) Red Cell Distribution Width 15.6 % (11.5-14.5) Platelet Count 223 x10^3/uL (140-400) Neutrophils (%) (Auto) 76 % (31-73) Lymphocytes (%) (Auto) 15 % (24-48) Monocytes (%) (Auto) 7 % (0-9) Eosinophils (%) (Auto) 2 % (0-3) Basophils (%) (Auto) 1 % (0-3) Neutrophils # (Auto) 6.6 x10^3/uL (1.8-7.7) Lymphocytes # (Auto) 1.3 x10^3/uL (1.0-4.8) Monocytes # (Auto) 0.6 x10^3/uL (0.0-1.1) Eosinophils # (Auto) 0.2 x10^3/uL (0.0-0.7) Basophils # (Auto) 0.1 x10^3/uL (0.0-0.2) Sodium Level 138 mmol/L (136-145) Potassium Level 3.8 mmol/L (3.5-5.1) Chloride Level 102 mmol/L (98-107) Carbon Dioxide Level 25 mmol/L (21-32) Anion Gap 11 (6-14) Blood Urea Nitrogen 7 mg/dL (7-20) Creatinine 0.7 mg/dL (0.6-1.0) Estimated GFR (Cockcroft-Gault) 88.9 BUN/Creatinine Ratio 10 (6-20) Glucose Level 100 mg/dL (70-99) Lactic Acid Level 1.0 mmol/L (0.4-2.0) Calcium Level 7.8 mg/dL (8.5-10.1) Total Bilirubin 0.4 mg/dL (0.2-1.0) Aspartate Amino Transf (AST/SGOT) 48 U/L (15-37) Alanine Aminotransferase (ALT/SGPT) 50 U/L (14-59) Alkaline Phosphatase 414 U/L (46-116) Troponin I Quantitative < 0.017 ng/mL (0.000-0.055) IV-Xaz-A-Type Natriuretic Peptide 262 pg/mL (0-124) Total Protein 7.0 g/dL (6.4-8.2) Albumin 2.4 g/dL (3.4-5.0) Albumin/Globulin Ratio 0.5 (1.0-1.7) O2 Saturation 89 % (92-99) Arterial Blood pH 7.42 (7.35-7.45) Arterial Blood pCO2 at Patient Temp 33 mmHg (35-46) Arterial Blood pO2 at Patient Temp 54 mmHg (75-108) Arterial Blood HCO3 21 mmol/L (21-28) Arterial Blood Base Excess -2 mmol/L (-3-3) FiO2 21 D-Dimer (Aditi) 6.05 ug/mlFEU (0.00-0.50) Medications Active Scripts Medications Dose Route/Sig Max Daily Dose Days Date Category Oxycontin (Oxycodone HCl) 20 Mg Tab.er.12h 20 Mg PO BID 04/16/19 Reported Pepcid (Famotidine) 40 Mg Tablet 40 Mg PO HS 03/06/19 Reported Compazine (Prochlorperazine Maleate) 10 Mg Tablet 10 Mg PO Q6HRS 03/06/19 Reported Topiramate 100 Mg Tablet 2 Tab PO BID 03/06/19 Reported Venlafaxine Hcl Er (Venlafaxine Hcl) 225 Mg Tab.er.24 1 Tab PO DAILY 09/05/18 Reported Xanax (Alprazolam) 0.5 Mg Tablet 1 Tab PO PRN BID PRN 09/05/18 Reported Gabapentin 600 Mg Tablet 300 Mg PO TID 06/09/18 Reported Levocetirizine Dihydrochloride 5 Mg Tablet 5 Mg PO HS 03/09/18 Reported Carvedilol (Carvedilol) 6.25 Mg Tablet 6.25 Mg PO BIDWMEALS 03/09/18 Reported Oxycodone Hcl Immed.release (Oxycodone Hcl) 10 Mg Tablet 10 Mg PO Q6HRS PRN 03/09/18 Reported Relpax (Eletriptan Hbr) 40 Mg Tablet 40 Mg PO PRN PRN 08/23/17 Reported Flonase Allergy Relief (Fluticasone Propionate) 9.9 Ml [place].susp 2 Sprays NS DAILY 08/23/17 Reported Duoneb 0.5-3(2.5) Mg/3 Ml (Albuterol/Ipratropium) 3 Ml Ampul.neb 3 Ml NEB QID 08/23/17 Reported Proair Hfa Inhaler (Albuterol Sulfate) 8.5 Gm Hfa.aer.ad 1 Puff INH PRN Q6HRS PRN 08/23/17 Reported Advair 250-50 Diskus (Fluticasone/Salmeterol) 1 Each Disk.w.dev 1 Inh IH BID 08/23/17 Reported Cyclobenzaprine Hcl 10 Mg Tablet 10 Mg PO TID PRN PRN 10/31/13 Reported Atorvastatin Calcium 40 Mg Tablet 20 Mg PO DAILY 10/31/13 Reported Singulair Tablet (Montelukast Sodium) 10 Mg Tablet 10 Mg PO HS 10/31/13 Reported Impression . IMPRESSION: 1. Acute hypoxemic respiratory failure. 2. Abnormal CT chest performed on 04/05/2019 revealing mediastinal lymph node, scattered pulmonary nodules, and left-sided pleural thickening along with pleural effusion with bony metastases and liver metastases. 3. Metastatic breast cancer as indicated above. 4. Tobacco dependent. 5. Acute nonspecific bronchitis. 6. Possible pneumonia. 7. Possible lymphangitic spread. Plan . WILL CONTINUE THE SAME CXR REVIEWED NO CHANGE 1. We will empirically continue antibiotics. 2. Steroids. 3. A 6-minute walk prior to discharge. 4. Follow up on pleural fluid analysis, suspect malignant effusion. 5. Overall prognosis appears to be poor. Hopefully, the patient will start responding to the recent clinical trial started on Xeloda. 6. Continue home meds. VAL PEÑA MD Apr 18, 2019 09:37
[2019-04-18] MEDS: CYCLOBENZAPRINE 10 MG TABLET. PO PRN (09:42)
[2019-04-18] MEDS: XELODA 500 MG PO SCH ×2 (09:42→21:36)
[2019-04-18] MEDS: VENLAFAXINE XR 37.5 MG CAP.ER.24H. PO SCH (09:42)
[2019-04-18] MEDS: GABAPENTIN 300 MG CAPSULE. PO SCH ×3 (09:43→21:35)
[2019-04-18] MEDS: ALPRAZolam 0.5 MG TABLET PO PRN (09:43)
[2019-04-18] MEDS: TOPIRAMATE 100 MG TABLET. PO SCH ×2 (09:43→21:35)
[2019-04-18] MEDS: AZITHROMYCIN 250 MG TABLET. PO SCH (09:43)
--- NOTE | 2019-04-18 10:11 | PDOC ---
PROGRESS NOTES History of Present Illness History of Present Illness VTE Prophylaxis Ordered VTE Prophylaxis Devices: Yes VTE Pharmacological Prophylaxi: Yes Assessment/Plan Assessment/Plan ACUTE HYpoxia WITH RESPIRATORY FAILURE post left sided thoracentesis, drained 1 7 L - initially planned for OP procedure hypoxia with abN CXR; ff up pleural fluid studies Worsening bilateral lung infiltrates or pulmonary edema. Pulm edema vs infiltrates - rocephin, add azithro,. LAsix x 1 IVP 04/16 Breast ca s.p bilateral mastectomy and chemo last yr - now with mets to bone - courtesy consult heme onc, sent to IR for thoracentesis FULL CODE copd acute exac// bronchospasm SEVERE PROTEIN-CALORIC MALNUTRITION PLAN: admit tele bed consult pulmonary home meds consult oncology hannah 27 min pt exam, chart review, > 50% of time spent with exam, chart review, pt care coordination Vitals Vitals Vital Signs Date Time Temp Pulse Resp B/P (MAP) Pulse Ox O2 Delivery O2 Flow Rate FiO2 04/18/19 09:26 95 Nasal Cannula 2.0 04/18/19 07:30 98.1 98 16 102/61 (75) 98.1 Physical Exam General: Alert, Oriented X3, Cooperative, No acute distress, mild distress Heart: Regular rate, Normal S1, Normal S2 Lungs: Wheezing Abdomen: Normal bowel sounds, Soft, No tenderness, No hepatosplenomegaly, No masses Extremities: No clubbing, No cyanosis, No edema, Normal pulses, No tenderness/swelling Skin: No rashes, No breakdown, No significant lesion Assessment and Plan Assessmemt and Plan Problems Medical Problems: (1) CAP (community acquired pneumonia) Status: Acute (2) Elevated liver function tests Status: Acute (3) Hypoalbuminemia Status: Acute (4) Hypoxia Status: Acute (5) Metastatic breast cancer Status: Acute Comment Review of Relevant I have reviewed the following items danya (where applicable) has been applied. Labs Laboratory Tests Test 04/16/19 15:43 04/16/19 16:00 04/16/19 17:40 White Blood Count 8.7 x10^3/uL (4.0-11.0) Red Blood Count 4.53 x10^6/uL (3.50-5.40) Hemoglobin 13.4 g/dL (12.0-15.5) Hematocrit 39.8 % (36.0-47.0) Mean Corpuscular Volume 88 fL (79-100) Mean Corpuscular Hemoglobin 30 pg (25-35) Mean Corpuscular Hemoglobin Concent 34 g/dL (31-37) Red Cell Distribution Width 15.6 % (11.5-14.5) Platelet Count 223 x10^3/uL (140-400) Neutrophils (%) (Auto) 76 % (31-73) Lymphocytes (%) (Auto) 15 % (24-48) Monocytes (%) (Auto) 7 % (0-9) Eosinophils (%) (Auto) 2 % (0-3) Basophils (%) (Auto) 1 % (0-3) Neutrophils # (Auto) 6.6 x10^3/uL (1.8-7.7) Lymphocytes # (Auto) 1.3 x10^3/uL (1.0-4.8) Monocytes # (Auto) 0.6 x10^3/uL (0.0-1.1) Eosinophils # (Auto) 0.2 x10^3/uL (0.0-0.7) Basophils # (Auto) 0.1 x10^3/uL (0.0-0.2) Sodium Level 138 mmol/L (136-145) Potassium Level 3.8 mmol/L (3.5-5.1) Chloride Level 102 mmol/L (98-107) Carbon Dioxide Level 25 mmol/L (21-32) Anion Gap 11 (6-14) Blood Urea Nitrogen 7 mg/dL (7-20) Creatinine 0.7 mg/dL (0.6-1.0) Estimated GFR (Cockcroft-Gault) 88.9 BUN/Creatinine Ratio 10 (6-20) Glucose Level 100 mg/dL (70-99) Lactic Acid Level 1.0 mmol/L (0.4-2.0) Calcium Level 7.8 mg/dL (8.5-10.1) Total Bilirubin 0.4 mg/dL (0.2-1.0) Aspartate Amino Transf (AST/SGOT) 48 U/L (15-37) Alanine Aminotransferase (ALT/SGPT) 50 U/L (14-59) Alkaline Phosphatase 414 U/L (46-116) Troponin I Quantitative < 0.017 ng/mL (0.000-0.055) XD-Lio-C-Type Natriuretic Peptide 262 pg/mL (0-124) Total Protein 7.0 g/dL (6.4-8.2) Albumin 2.4 g/dL (3.4-5.0) Albumin/Globulin Ratio 0.5 (1.0-1.7) O2 Saturation 89 % (92-99) Arterial Blood pH 7.42 (7.35-7.45) Arterial Blood pCO2 at Patient Temp 33 mmHg (35-46) Arterial Blood pO2 at Patient Temp 54 mmHg (75-108) Arterial Blood HCO3 21 mmol/L (21-28) Arterial Blood Base Excess -2 mmol/L (-3-3) FiO2 21 D-Dimer (Aditi) 6.05 ug/mlFEU (0.00-0.50) Microbiology 04/16/19 Blood Culture - Preliminary, Resulted NO GROWTH AFTER 1 DAY Medications Current Medications Albuterol/ Ipratropium (Duoneb) 3 ml 1X ONCE NEB Last administered on 04/16/19at 15:59; Start 04/16/19 at 16:15; Stop 04/16/19 at 16:16; Status DC Methylprednisolone Sodium Succinate (SOLU-Medrol 125MG VIAL) 125 mg 1X ONCE IV Last administered on 04/16/19at 16:23; Start 04/16/19 at 16:15; Stop 04/16/19 at 16:16; Status DC Ceftriaxone Sodium (Rocephin) 1 gm 1X ONCE IVP Last administered on 04/16/19at 15:24; Start 04/16/19 at 17:00; Stop 04/16/19 at 17:01; Status DC Methylprednisolone Sodium Succinate (SOLU-Medrol 125MG VIAL) 125 mg 1X ONCE IV ; Start 04/16/19 at 17:00; Stop 04/16/19 at 17:01; Status DC Albuterol/ Ipratropium (Duoneb) 3 ml RTQID NEB Last administered on 04/18/19at 09:25; Start 04/16/19 at 20:00 Guaifenesin (Robitussin Dm) 10 ml PRN Q6HRS PRN PO COUGH; Start 04/16/19 at 16:45 Ketorolac Tromethamine (Toradol 15mg Vial) 15 mg PRN Q6HRS PRN IV PAIN; Start 04/16/19 at 16:45; Stop 04/21/19 at 16:44 Acetaminophen/ Hydrocodone Bitart (Lortab 5/325) 1 tab PRN Q4HRS PRN PO PAIN MILD TO MOD; Start 04/16/19 at 16:45 Zolpidem Tartrate (Ambien) 5 mg PRN QHS PRN PO INSOMNIA; Start 04/16/19 at 16:4 5 Alprazolam (Xanax) 0.5 mg PRN BID PRN PO ANXIETY Last administered on 04/18/19 09:43; Start 04/16/19 at 16:45 Atorvastatin Calcium (Lipitor) 20 mg QHS PO Last administered on 04/17/19 21:54; Start 04/16/19 at 21:00 Carvedilol (Coreg) 6.25 mg BIDWMEALS PO Last administered on 04/17/19 08:39; Start 04/16/19 at 17:00 Cyclobenzaprine HCl (Flexeril) 10 mg TID PRN PRN PO MUSCLE SPASMS Last administered on 04/18/19 09:42; Start 04/16/19 at 16:45 Montelukast Sodium (Singulair) 10 mg HS PO Last administered on 04/17/19 21:54; Start 04/16/19 at 21:00 Topiramate (Topamax) 200 mg BID PO Last administered on 04/18/19 09:43; Start 04/16/19 at 21:00 Sumatriptan Succinate (Imitrex) 100 mg PRN Q2HR PRN PO MIGRAINE HEADACHE; Start 04/16/19 at 17:15 Famotidine (Pepcid) 40 mg QHS PO Last administered on 04/17/19 21:53; Start 04/16/19 at 21:00 Fluticasone Propionate (Flonase) 2 spray DAILY NS ; Start 04/17/19 at 09:00 Non-Formulary Medication (Fluticasone/ Salmeterol (Advair 250-50 Diskus)) 1 inh BID IH ; Start 04/16/19 at 21:00; Status UNV Gabapentin (Neurontin) 300 mg TID PO Last administered on 04/18/19 09:43; Start 04/16/19 at 21:00 Cetirizine HCl (ZyrTEC) 10 mg QHS PO Last administered on 04/17/19 21:54; Start 04/16/19 at 21:00 Oxycodone HCl (Roxicodone) 10 mg PRN Q6HRS PRN PO PAIN SEVERE; Start 04/16/19 at 17:00 Oxycodone HCl (OxyCONTIN) 20 mg Q12HR PO Last administered on 04/17/19at 08:38; Start 04/16/19 at 21:00; Stop 04/17/19 at 12:36; Status DC Prochlorperazine Maleate (Compazine) 10 mg Q6HRS PO Last administered on 04/18/19 06:15; Start 04/16/19 at 18:00 Venlafaxine HCl (Effexor Xr) 225 mg DAILY PO Last administered on 04/18/19 09:42; Start 04/17/19 at 09:00 Ceftriaxone Sodium (Rocephin) 1 gm Q24H IVP Last administered on 04/17/19 17:52; Start 04/17/19 at 17:00 Azithromycin (Zithromax) 250 mg DAILY PO Last administered on 04/18/19 09:43; Start 04/17/19 at 09:00 Azithromycin (Zithromax) 500 mg 1X ONCE PO Last administered on 04/16/19at 17:14; Start 04/16/19 at 17:15; Stop 04/16/19 at 17:16; Status DC Acetaminophen (Tylenol) 500 mg PRN Q6HRS PRN PO HEADACHE / TEMP; Start 04/16/19 at 17:00 Ondansetron HCl (Zofran) 4 mg PRN Q6HRS PRN IVP NAUSEA/VOMITING; Start 04/16/19 at 17:00 Furosemide (Lasix) 40 mg 1X ONCE IVP Last administered on 04/16/19 17:54; Start 04/16/19 at 17:30; Stop 04/16/19 at 17:31; Status DC Ceftriaxone Sodium (Rocephin) 1 gm 1X ONCE IVP ; Start 04/16/19 at 17:30; Stop 04/16/19 at 17:31; Status DC Alprazolam (Xanax) 0.25 mg PRN Q8HRS PRN PO ANXIETY / AGITATION; Start 04/16/19 at 17:15; Status Cancel Budesonide (Pulmicort) 0.5 mg RTBID NEB Last administered on 04/18/19at 09:26; Start 04/16/19 at 20:00 Nicotine (Nicoderm Cq 21mg) 1 patch PRN DAILY PRN TD SMOKING CESSATION; Start 04/16/19 at 17:15 Albuterol/ Ipratropium (Duoneb) 3 ml RTQID NEB ; Start 04/17/19 at 16:00; Stop 04/17/19 at 12:03; Status DC Oxycodone HCl (OxyCONTIN) 20 mg Q12HR@0600,1800 PO Last administered on 04/18/19at 06:16; Start 04/17/19 at 18:00 Non-Formulary Medication 2,000 ea BID PO Last administered on 04/18/19at 09:42; Start 04/17/19 at 13:00 Methylprednisolone Sodium Succinate (SOLU-Medrol 125MG VIAL) 125 mg Q8HRS IV Last administered on 04/18/19at 06:15; Start 04/17/19 at 22:00 Methylprednisolone Sodium Succinate (SOLU-Medrol 125MG VIAL) 125 mg 1X ONCE IV Last administered on 04/17/19at 17:30; Start 04/17/19 at 17:30; Stop 04/17/19 at 17:31; Status DC Active Scripts Active Reported Oxycontin (Oxycodone HCl) 20 Mg Tab.er.12h 20 Mg PO BID Pepcid (Famotidine) 40 Mg Tablet 40 Mg PO HS Compazine (Prochlorperazine Maleate) 10 Mg Tablet 10 Mg PO Q6HRS Topiramate 100 Mg Tablet 2 Tab PO BID Venlafaxine Hcl Er (Venlafaxine Hcl) 225 Mg Tab.er.24 1 Tab PO DAILY Xanax (Alprazolam) 0.5 Mg Tablet 1 Tab PO PRN BID PRN Gabapentin 600 Mg Tablet 300 Mg PO TID Levocetirizine Dihydrochloride 5 Mg Tablet 5 Mg PO HS Carvedilol (Carvedilol) 6.25 Mg Tablet 6.25 Mg PO BIDWMEALS Oxycodone Hcl Immed.release (Oxycodone Hcl) 10 Mg Tablet 10 Mg PO Q6HRS PRN Relpax (Eletriptan Hbr) 40 Mg Tablet 40 Mg PO PRN PRN Flonase Allergy Relief (Fluticasone Propionate) 9.9 Ml [place].susp 2 Sprays NS DAILY Duoneb 0.5-3(2.5) Mg/3 Ml (Albuterol/Ipratropium) 3 Ml Ampul.neb 3 Ml NEB QID Proair Hfa Inhaler (Albuterol Sulfate) 8.5 Gm Hfa.aer.ad 1 Puff INH PRN Q6HRS PRN Advair 250-50 Diskus (Fluticasone/Salmeterol) 1 Each Disk.w.dev 1 Inh IH BID Cyclobenzaprine Hcl 10 Mg Tablet 10 Mg PO TID PRN PRN Atorvastatin Calcium 40 Mg Tablet 20 Mg PO DAILY Singulair Tablet (Montelukast Sodium) 10 Mg Tablet 10 Mg PO HS Vitals/I & O Vital Sign - Last 24 Hours 04/17/19 04/17/19 04/17/19 04/17/19 11:35 11:53 12:38 14:19 Temp 98.2 98.6 98.2 98.6 Pulse 94 103 Resp 16 18 16 B/P (MAP) 90/55 (67) 126/76 (93) Pulse Ox 94 96 O2 Delivery Nasal Cannula Nasal Cannula Room Air Nasal Cannula O2 Flow Rate 2.0 2.0 2.0 04/17/19 04/17/19 04/17/19 04/17/19 16:33 17:00 19:40 20:30 Temp 98.1 98.1 Pulse 96 95 Resp 16 B/P (MAP) 112/52 115/63 (80) Pulse Ox 96 O2 Delivery Nasal Cannula Nasal Cannula Nasal Cannula O2 Flow Rate 2.0 2.0 2.0 04/17/19 04/17/19 04/17/19 04/18/19 21:15 21:16 23:48 03:03 Temp 98.0 97.4 98.0 97.4 Pulse 100 95 Resp 16 20 B/P (MAP) 112/59 (76) 122/71 (88) Pulse Ox 95 97 93 O2 Delivery Room Air Nasal Cannula Nasal Cannula Nasal Cannula O2 Flow Rate 2.0 2.0 2.0 10/9/19 10/9/19 10/9/19 06:16 07:30 09:26 Temp 98.1 98.1 Pulse 98 Resp 16 B/P (MAP) 102/61 (75) Pulse Ox 93 95 O2 Delivery Nasal Cannula Nasal Cannula Nasal Cannula O2 Flow Rate 2.0 2.0 2.0 Intake and Output 04/17/19 04/17/19 04/18/19 15:00 23:00 07:00 Intake Total 200 ml 500 ml Balance 200 ml 500 ml NIKHIL MARTINEZ MD Apr 18, 2019 10:11
[2019-04-18 11:40] VITALS: BP 101/66
--- NOTE | 2019-04-18 14:31 | RAD ---
EXAM: AP View of the chest DATE: 04/18/2019 1:24 PM INDICATION: Wheezing, shortness of air COMPARISON: 04/16/2019 FINDINGS/ IMPRESSION: Mild cardiomegaly. Bilateral perihilar airspace opacities and small left pleural effusion may be seen with pulmonary edema. Alternatively multifocal pneumonia would have similar appearance. In general these opacities are mildly improved compared to 04/16/2019. No definite pneumothorax. Electronically signed by: Jr Rodriguez MD (04/18/2019 2:28 PM) [id number]
[2019-04-18 15:00] VITALS: BP 106/61
[2019-04-18] MEDS: cefTRIAXone IV Push 1 GM VIAL. IVP SCH (17:49)
[2019-04-18 19:30] VITALS: BP 120/63
[2019-04-18] MEDS: FAMOTIDINE 20 MG TABLET. PO SCH (21:35)
[2019-04-18] MEDS: MONTELUKAST SODIUM 10 MG TABLET. PO SCH (21:35)
[2019-04-18] MEDS: CETIRIZINE HCL 10 MG TABLET. PO SCH (21:36)
[2019-04-18] MEDS: ATORVASTATIN CALCIUM 20 MG TABLET PO SCH (21:36)
[2019-04-18 23:46] VITALS: BP 109/65
[2019-04-19] MEDS: PROCHLORPERAZINE 5 MG TABLET. PO SCH ×3 (01:08→11:36)
[2019-04-19 03:47] VITALS: BP 104/62
[2019-04-19 05:01] LABS: BASO % 0 % (0-3); EOS % 0 % (0-3); HEMATOCRIT 35.1 % (36.0-47.0); HEMOGLOBIN 11.7 g/dL (12.0-15.5); LYMPH # 0.7 x10^3/uL (1.0-4.8); LYMPH % 7 % (24-48); MEAN CORPUSCULAR HEMOGLOBIN 29 pg (25-35); MEAN CORPUSCULAR HGB CONC 33 g/dL (31-37); MEAN CORPUSCULAR VOLUME 88 fL (79-100); MONO # 0.4 x10^3/uL (0.0-1.1); MONO % 4 % (0-9); NEUT # 9.1 x10^3/uL (1.8-7.7); NEUT % 89 % (31-73); PLATELET COUNT 246 x10^3/uL (140-400); RED BLOOD COUNT 3.98 x10^6/uL (3.50-5.40); RED CELL DISTRIBUTION WIDTH 15.3 % (11.5-14.5); WHITE BLOOD COUNT 10.2 x10^3/uL (4.0-11.0)
[2019-04-19 05:25] LABS: ALBUMIN 2.3 g/dL (3.4-5.0); ALBUMIN/GLOBULIN RATIO 0.5 (1.0-1.7); CALCIUM 7.8 mg/dL (8.5-10.1); CREATININE 0.7 mg/dL (0.6-1.0); GFR 88.9; TOTAL BILIRUBIN 0.2 mg/dL (0.2-1.0); TOTAL PROTEIN 6.6 g/dL (6.4-8.2)
[2019-04-19 05:28] LABS: POTASSIUM 2.9 mmol/L (3.5-5.1)
[2019-04-19] MEDS ORDERED: POTASSIUM CHLORIDE 20 MEQ TABLET.ER. PO ONE ×2 (06:00→08:00)
[2019-04-19] MEDS: methylPREDNISolone SOD SUCC PF 125 MG/2 ML VIAL. IV SCH (06:02)
[2019-04-19] MEDS: oxyCODONE ER 10 MG TAB.ER.12H PO SCH (06:03)
[2019-04-19 07:00] VITALS: BP 96/47
[2019-04-19] MEDS: IPRATRPIUM/ALBUTEROL 0.5/2.5MG 3 ML NEBU. NEB SCH ×3 (07:20→15:16)
[2019-04-19] MEDS: BUDESONIDE 0.5 MG/2 ML NEBU. NEB SCH (07:20)
[2019-04-19] MEDS: CARVEDILOL 6.25 MG TABLET. PO SCH (08:00)
[2019-04-19] MEDS: AZITHROMYCIN 250 MG TABLET. PO SCH (08:10)
[2019-04-19] MEDS: TOPIRAMATE 100 MG TABLET. PO SCH (08:10)
[2019-04-19] MEDS: GABAPENTIN 300 MG CAPSULE. PO SCH ×2 (08:10→14:29)
[2019-04-19] MEDS: VENLAFAXINE XR 37.5 MG CAP.ER.24H. PO SCH (08:11)
[2019-04-19] MEDS: XELODA 500 MG PO SCH (08:11)
--- NOTE | 2019-04-19 08:18 | PDOC ---
PROGRESS NOTES History of Present Illness History of Present Illness VTE Prophylaxis Ordered VTE Prophylaxis Devices: Yes VTE Pharmacological Prophylaxi: Yes DISCHARGE DX hypotensive earlier 04/19 ACUTE HYpoxia WITH RESPIRATORY FAILURE post left sided thoracentesis, drained 1 7 L - hypoxia with abN CXR; // pleural fluid studies 04/18 Bilateral perihilar airspace opacities and small left pleural effusion may be seen with pulmonary edema. Alternatively multifocal pneumonia would have similar appearance. In general these opacities are mildly improved compared to 04/16/2019. Worsening bilateral lung infiltrates or pulmonary edema. Pulm edema vs infiltrates - rocephin, add azithro,. LAsix x 1 IVP 04/16 Breast ca s.p bilateral mastectomy and chemo last yr - now with mets to bone - courtesy consult heme onc, sent to IR for thoracentesis Stage 4 breast cancer with bone metastasis, liver metastasis and left-sided pleural effusion per CT scan performed on 04/05/2019. 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 SpO2 range = 90 - 91% with exertion on room air. Patient had complaint of moderate dyspnea with exertion. SpO2 = 93% on room air at rest and with recovery. Randall [employer] iv antibiotics, rocephin 29 min pt exam D/C PLANNING , chart review, > 50% of time spent with exam, chart review, pt care coordination Vitals Vitals Vital Signs ON ROOM AIR Date Time Temp Pulse Resp B/P (MAP) Pulse Ox O2 Delivery O2 Flow Rate FiO2 04/19/19 07:22 95 Room Air 04/19/19 07:00 98.3 86 18 96/47 (63) 2.0 98.3 Physical Exam General: Alert, Oriented X3, Cooperative, No acute distress Heart: Regular rate, Normal S1, Normal S2 Lungs: Clear, Crackles, Other (MUCH IMPROVED) Abdomen: Normal bowel sounds, Soft, No tenderness, No hepatosplenomegaly, No masses Extremities: No clubbing, No cyanosis, No edema, Normal pulses, No tenderness/swelling Skin: No rashes, No breakdown, No significant lesion Labs LABS PATIENT: JAMAAL GUERRERO ACCT: [id number] LOC: [address] [place] [address] U: [id number] AGE/SX: 49/F ROOM: [facility] RE04/16/[address]: VIRGEN KEMP MD : 1970 BED: 1 DIS: STATUS: ADM IN TLOC: SPEC #: [id number] GABRIELA: 04/16/19 STATUS: RES REQ #: [id number] RECD: 04/16/[address]: SHANDA WHITNEY MD SOURCE: BLOOD ENTR: 04/16/[address]: EUSEBIO GRULLON SPDESC: ORDERED: BCULT Procedure Result BLOOD CULTURE Preliminary NO GROWTH AFTER 2 DAYS - Laboratory Tests Test 04/18/19 13:02 04/19/19 03:45 Glucose (Fingerstick) 203 mg/dL (70-99) White Blood Count 10.2 x10^3/uL (4.0-11.0) Red Blood Count 3.98 x10^6/uL (3.50-5.40) Hemoglobin 11.7 g/dL (12.0-15.5) Hematocrit 35.1 % (36.0-47.0) Mean Corpuscular Volume 88 fL (79-100) Mean Corpuscular Hemoglobin 29 pg (25-35) Mean Corpuscular Hemoglobin Concent 33 g/dL (31-37) Red Cell Distribution Width 15.3 % (11.5-14.5) Platelet Count 246 x10^3/uL (140-400) Neutrophils (%) (Auto) 89 % (31-73) Lymphocytes (%) (Auto) 7 % (24-48) Monocytes (%) (Auto) 4 % (0-9) Eosinophils (%) (Auto) 0 % (0-3) Basophils (%) (Auto) 0 % (0-3) Neutrophils # (Auto) 9.1 x10^3/uL (1.8-7.7) Lymphocytes # (Auto) 0.7 x10^3/uL (1.0-4.8) Monocytes # (Auto) 0.4 x10^3/uL (0.0-1.1) Eosinophils # (Auto) 0.0 x10^3/uL (0.0-0.7) Basophils # (Auto) 0.0 x10^3/uL (0.0-0.2) Sodium Level 142 mmol/L (136-145) Potassium Level 2.9 mmol/L (3.5-5.1) Chloride Level 104 mmol/L (98-107) Carbon Dioxide Level 26 mmol/L (21-32) Anion Gap 12 (6-14) Blood Urea Nitrogen 11 mg/dL (7-20) Creatinine 0.7 mg/dL (0.6-1.0) Estimated GFR (Cockcroft-Gault) 88.9 BUN/Creatinine Ratio 16 (6-20) Glucose Level 150 mg/dL (70-99) Calcium Level 7.8 mg/dL (8.5-10.1) Total Bilirubin 0.2 mg/dL (0.2-1.0) Aspartate Amino Transf (AST/SGOT) 40 U/L (15-37) Alanine Aminotransferase (ALT/SGPT) 53 U/L (14-59) Alkaline Phosphatase 360 U/L (46-116) Total Protein 6.6 g/dL (6.4-8.2) Albumin 2.3 g/dL (3.4-5.0) Albumin/Globulin Ratio 0.5 (1.0-1.7) Assessment and Plan Assessmemt and Plan Problems Medical Problems: (1) CAP (community acquired pneumonia) Status: Acute (2) Elevated liver function tests Status: Acute (3) Hypoalbuminemia Status: Acute (4) Hypoxia Status: Acute (5) Metastatic breast cancer Status: Acute Comment Review of Relevant I have reviewed the following items danya (where applicable) has been applied. Labs Laboratory Tests Test 04/18/19 13:02 04/19/19 03:45 Glucose (Fingerstick) 203 mg/dL (70-99) White Blood Count 10.2 x10^3/uL (4.0-11.0) Red Blood Count 3.98 x10^6/uL (3.50-5.40) Hemoglobin 11.7 g/dL (12.0-15.5) Hematocrit 35.1 % (36.0-47.0) Mean Corpuscular Volume 88 fL (79-100) Mean Corpuscular Hemoglobin 29 pg (25-35) Mean Corpuscular Hemoglobin Concent 33 g/dL (31-37) Red Cell Distribution Width 15.3 % (11.5-14.5) Platelet Count 246 x10^3/uL (140-400) Neutrophils (%) (Auto) 89 % (31-73) Lymphocytes (%) (Auto) 7 % (24-48) Monocytes (%) (Auto) 4 % (0-9) Eosinophils (%) (Auto) 0 % (0-3) Basophils (%) (Auto) 0 % (0-3) Neutrophils # (Auto) 9.1 x10^3/uL (1.8-7.7) Lymphocytes # (Auto) 0.7 x10^3/uL (1.0-4.8) Monocytes # (Auto) 0.4 x10^3/uL (0.0-1.1) Eosinophils # (Auto) 0.0 x10^3/uL (0.0-0.7) Basophils # (Auto) 0.0 x10^3/uL (0.0-0.2) Sodium Level 142 mmol/L (136-145) Potassium Level 2.9 mmol/L (3.5-5.1) Chloride Level 104 mmol/L (98-107) Carbon Dioxide Level 26 mmol/L (21-32) Anion Gap 12 (6-14) Blood Urea Nitrogen 11 mg/dL (7-20) Creatinine 0.7 mg/dL (0.6-1.0) Estimated GFR (Cockcroft-Gault) 88.9 BUN/Creatinine Ratio 16 (6-20) Glucose Level 150 mg/dL (70-99) Calcium Level 7.8 mg/dL (8.5-10.1) Total Bilirubin 0.2 mg/dL (0.2-1.0) Aspartate Amino Transf (AST/SGOT) 40 U/L (15-37) Alanine Aminotransferase (ALT/SGPT) 53 U/L (14-59) Alkaline Phosphatase 360 U/L (46-116) Total Protein 6.6 g/dL (6.4-8.2) Albumin 2.3 g/dL (3.4-5.0) Albumin/Globulin Ratio 0.5 (1.0-1.7) Laboratory Tests Test 04/18/19 13:02 04/19/19 03:45 Glucose (Fingerstick) 203 mg/dL (70-99) White Blood Count 10.2 x10^3/uL (4.0-11.0) Red Blood Count 3.98 x10^6/uL (3.50-5.40) Hemoglobin 11.7 g/dL (12.0-15.5) Hematocrit 35.1 % (36.0-47.0) Mean Corpuscular Volume 88 fL (79-100) Mean Corpuscular Hemoglobin 29 pg (25-35) Mean Corpuscular Hemoglobin Concent 33 g/dL (31-37) Red Cell Distribution Width 15.3 % (11.5-14.5) Platelet Count 246 x10^3/uL (140-400) Neutrophils (%) (Auto) 89 % (31-73) Lymphocytes (%) (Auto) 7 % (24-48) Monocytes (%) (Auto) 4 % (0-9) Eosinophils (%) (Auto) 0 % (0-3) Basophils (%) (Auto) 0 % (0-3) Neutrophils # (Auto) 9.1 x10^3/uL (1.8-7.7) Lymphocytes # (Auto) 0.7 x10^3/uL (1.0-4.8) Monocytes # (Auto) 0.4 x10^3/uL (0.0-1.1) Eosinophils # (Auto) 0.0 x10^3/uL (0.0-0.7) Basophils # (Auto) 0.0 x10^3/uL (0.0-0.2) Sodium Level 142 mmol/L (136-145) Potassium Level 2.9 mmol/L (3.5-5.1) Chloride Level 104 mmol/L (98-107) Carbon Dioxide Level 26 mmol/L (21-32) Anion Gap 12 (6-14) Blood Urea Nitrogen 11 mg/dL (7-20) Creatinine 0.7 mg/dL (0.6-1.0) Estimated GFR (Cockcroft-Gault) 88.9 BUN/Creatinine Ratio 16 (6-20) Glucose Level 150 mg/dL (70-99) Calcium Level 7.8 mg/dL (8.5-10.1) Total Bilirubin 0.2 mg/dL (0.2-1.0) Aspartate Amino Transf (AST/SGOT) 40 U/L (15-37) Alanine Aminotransferase (ALT/SGPT) 53 U/L (14-59) Alkaline Phosphatase 360 U/L (46-116) Total Protein 6.6 g/dL (6.4-8.2) Albumin 2.3 g/dL (3.4-5.0) Albumin/Globulin Ratio 0.5 (1.0-1.7) Microbiology 04/16/19 Blood Culture - Preliminary, Resulted NO GROWTH AFTER 2 DAYS Medications Current Medications Albuterol/ Ipratropium (Duoneb) 3 ml 1X ONCE NEB Last administered on 04/16/19at 15:59; Start 04/16/19 at 16:15; Stop 04/16/19 at 16:16; Status DC Methylprednisolone Sodium Succinate (SOLU-Medrol 125MG VIAL) 125 mg 1X ONCE IV Last administered on 04/16/19at 16:23; Start 04/16/19 at 16:15; Stop 04/16/19 at 16:16; Status DC Ceftriaxone Sodium (Rocephin) 1 gm 1X ONCE IVP Last administered on 04/16/19at 15:24; Start 04/16/19 at 17:00; Stop 04/16/19 at 17:01; Status DC Methylprednisolone Sodium Succinate (SOLU-Medrol 125MG VIAL) 125 mg 1X ONCE IV ; Start 04/16/19 at 17:00; Stop 04/16/19 at 17:01; Status DC Albuterol/ Ipratropium (Duoneb) 3 ml RTQID NEB Last administered on 04/19/19at 07:20; Start 04/16/19 at 20:00 Guaifenesin (Robitussin Dm) 10 ml PRN Q6HRS PRN PO COUGH; Start 04/16/19 at 16:45 Ketorolac Tromethamine (Toradol 15mg Vial) 15 mg PRN Q6HRS PRN IV PAIN; Start 04/16/19 at 16:45; Stop 04/21/19 at 16:44 Acetaminophen/ Hydrocodone Bitart (Lortab 5/325) 1 tab PRN Q4HRS PRN PO PAIN MILD TO MOD; Start 04/16/19 at 16:45 Zolpidem Tartrate (Ambien) 5 mg PRN QHS PRN PO INSOMNIA; Start 04/16/19 at 16:45 Alprazolam (Xanax) 0.5 mg PRN BID PRN PO ANXIETY Last administered on 04/18/19 09:43; Start 04/16/19 at 16:45 Atorvastatin Calcium (Lipitor) 20 mg QHS PO Last administered on 04/18/19 21:36; Start 04/16/19 at 21:00 Carvedilol (Coreg) 6.25 mg BIDWMEALS PO Last administered on 04/17/19 08:39; Start 04/16/19 at 17:00 Cyclobenzaprine HCl (Flexeril) 10 mg TID PRN PRN PO MUSCLE SPASMS Last administered on 04/18/19 09:42; Start 04/16/19 at 16:45 Montelukast Sodium (Singulair) 10 mg HS PO Last administered on 04/18/19 21:35; Start 04/16/19 at 21:00 Topiramate (Topamax) 200 mg BID PO Last administered on 04/19/19 08:10; Start 04/16/19 at 21:00 Sumatriptan Succinate (Imitrex) 100 mg PRN Q2HR PRN PO MIGRAINE HEADACHE; Start 04/16/19 at 17:15 Famotidine (Pepcid) 40 mg QHS PO Last administered on 04/18/19 21:35; Start 04/16/19 at 21:00 Fluticasone Propionate (Flonase) 2 spray DAILY NS ; Start 04/17/19 at 09:00 Non-Formulary Medication (Fluticasone/ Salmeterol (Advair 250-50 Diskus)) 1 inh BID IH ; Start 04/16/19 at 21:00; Status UNV Gabapentin (Neurontin) 300 mg TID PO Last administered on 04/19/19 08:10; Start 04/16/19 at 21:00 Cetirizine HCl (ZyrTEC) 10 mg QHS PO Last administered on 04/18/19 21:36; Start 04/16/19 at 21:00 Oxycodone HCl (Roxicodone) 10 mg PRN Q6HRS PRN PO PAIN SEVERE; Start 04/16/19 at 17:00 Oxycodone HCl (OxyCONTIN) 20 mg Q12HR PO Last administered on 04/17/19at 08:38; Start 04/16/19 at 21:00; Stop 04/17/19 at 12:36; Status DC Prochlorperazine Maleate (Compazine) 10 mg Q6HRS PO Last administered on 04/19/19 06:02; Start 04/16/19 at 18:00 Venlafaxine HCl (Effexor Xr) 225 mg DAILY PO Last administered on 04/19/19 08:11; Start 04/17/19 at 09:00 Ceftriaxone Sodium (Rocephin) 1 gm Q24H IVP Last administered on 04/18/19 17:49; Start 04/17/19 at 17:00 Azithromycin (Zithromax) 250 mg DAILY PO Last administered on 04/19/19 08:10; Start 04/17/19 at 09:00 Azithromycin (Zithromax) 500 mg 1X ONCE PO Last administered on 04/16/19at 17:14; Start 04/16/19 at 17:15; Stop 04/16/19 at 17:16; Status DC Acetaminophen (Tylenol) 500 mg PRN Q6HRS PRN PO HEADACHE / TEMP; Start 04/16/19 at 17:00 Ondansetron HCl (Zofran) 4 mg PRN Q6HRS PRN IVP NAUSEA/VOMITING; Start 04/16/19 at 17:00 Furosemide (Lasix) 40 mg 1X ONCE IVP Last administered on 04/16/19at 17:54; Start 04/16/19 at 17:30; Stop 04/16/19 at 17:31; Status DC Ceftriaxone Sodium (Rocephin) 1 gm 1X ONCE IVP ; Start 04/16/19 at 17:30; Stop 04/16/19 at 17:31; Status DC Alprazolam (Xanax) 0.25 mg PRN Q8HRS PRN PO ANXIETY / AGITATION; Start 04/16/19 at 17:15; Status Cancel Budesonide (Pulmicort) 0.5 mg RTBID NEB Last administered on 04/19/19at 07:20; Start 04/16/19 at 20:00 Nicotine (Nicoderm Cq 21mg) 1 patch PRN DAILY PRN TD SMOKING CESSATION; Start 04/16/19 at 17:15 Albuterol/ Ipratropium (Duoneb) 3 ml RTQID NEB ; Start 04/17/19 at 16:00; Stop 04/17/19 at 12:03; Status DC Oxycodone HCl (OxyCONTIN) 20 mg Q12HR@0600,1800 PO Last administered on 04/19/19at 06:03; Start 04/17/19 at 18:00 Non-Formulary Medication 2,000 ea BID PO Last administered on 04/19/19at 08:11; Start 04/17/19 at 13:00 Methylprednisolone Sodium Succinate (SOLU-Medrol 125MG VIAL) 125 mg Q8HRS IV Last administered on 04/19/19at 06:02; Start 04/17/19 at 22:00 Methylprednisolone Sodium Succinate (SOLU-Medrol 125MG VIAL) 125 mg 1X ONCE IV Last administered on 04/17/19at 17:30; Start 04/17/19 at 17:30; Stop 04/17/19 at 17:31; Status DC Potassium Chloride (Klor-Con) 40 meq 1X ONCE PO Last administered on 04/19/19at 06:04; Start 04/19/19 at 06:00; Stop 04/19/19 at 06:01; Status DC Potassium Chloride (Klor-Con) 40 meq 1X ONCE PO Last administered on 04/19/19at 08:09; Start 04/19/19 at 08:00; Stop 04/19/19 at 08:01; Status DC Active Scripts Active Reported Oxycontin (Oxycodone HCl) 20 Mg Tab.er.12h 20 Mg PO BID Pepcid (Famotidine) 40 Mg Tablet 40 Mg PO HS Compazine (Prochlorperazine Maleate) 10 Mg Tablet 10 Mg PO Q6HRS Topiramate 100 Mg Tablet 2 Tab PO BID Venlafaxine Hcl Er (Venlafaxine Hcl) 225 Mg Tab.er.24 1 Tab PO DAILY Xanax (Alprazolam) 0.5 Mg Tablet 1 Tab PO PRN BID PRN Gabapentin 600 Mg Tablet 300 Mg PO TID Levocetirizine Dihydrochloride 5 Mg Tablet 5 Mg PO HS Carvedilol (Carvedilol) 6.25 Mg Tablet 6.25 Mg PO BIDWMEALS Oxycodone Hcl Immed.release (Oxycodone Hcl) 10 Mg Tablet 10 Mg PO Q6HRS PRN Relpax (Eletriptan Hbr) 40 Mg Tablet 40 Mg PO PRN PRN Flonase Allergy Relief (Fluticasone Propionate) 9.9 Ml [place].susp 2 Sprays NS DAILY Duoneb 0.5-3(2.5) Mg/3 Ml (Albuterol/Ipratropium) 3 Ml Ampul.neb 3 Ml NEB QID Proair Hfa Inhaler (Albuterol Sulfate) 8.5 Gm Hfa.aer.ad 1 Puff INH PRN Q6HRS PRN Advair 250-50 Diskus (Fluticasone/Salmeterol) 1 Each Disk.w.dev 1 Inh IH BID Cyclobenzaprine Hcl 10 Mg Tablet 10 Mg PO TID PRN PRN Atorvastatin Calcium 40 Mg Tablet 20 Mg PO DAILY Singulair Tablet (Montelukast Sodium) 10 Mg Tablet 10 Mg PO HS Vitals/I & O Vital Sign - Last 24 Hours 04/18/19 04/18/19 04/18/19 04/18/19 09:26 10:16 11:40 13:05 Temp 98.0 98.0 Pulse 110 Resp 22 18 B/P (MAP) 101/66 (78) Pulse Ox 95 93 O2 Delivery Nasal Cannula Room Air Nasal Cannula Nasal Cannula O2 Flow Rate 2.0 2.0 3.0 04/18/19 04/18/19 04/18/19 04/18/19 13:39 15:00 16:21 17:00 Temp 97.9 97.9 Pulse 99 85 Resp 18 B/P (MAP) 106/61 (76) 98/54 Pulse Ox 97 95 100 O2 Delivery Nasal Cannula Nasal Cannula Nasal Cannula O2 Flow Rate 2.0 2.0 2.0 04/18/19 04/18/19 04/18/19 04/18/19 19:30 19:32 20:15 23:46 Temp 98.7 98.4 98.7 98.4 Pulse 116 113 Resp 18 18 B/P (MAP) 120/63 (82) 109/65 (80) Pulse Ox 96 90 97 O2 Delivery Nasal Cannula Room Air Nasal Cannula Nasal Cannula O2 Flow Rate 2.0 2.0 2.0 04/19/19 04/19/19 04/19/19 03:47 07:00 07:22 Temp 98.0 98.3 98.0 98.3 Pulse 97 86 Resp 18 18 B/P (MAP) 104/62 (76) 96/47 (63) Pulse Ox 96 96 95 O2 Delivery Nasal Cannula Nasal Cannula Room Air O2 Flow Rate 2.0 2.0 Intake and Output 04/18/19 04/18/19 04/19/19 15:00 23:00 07:00 Intake Total 500 ml 400 ml 1650 ml Balance 500 ml 400 ml 1650 ml NIKHIL MARTINEZ MD Apr 19, 2019 08:18
[2019-04-19] MEDS: FLUTICASONE 50MCG/NASAL SPRAY 16GM BOTTLE. NS SCH (09:00)
--- NOTE | 2019-04-19 09:25 | PDOC ---
PULMONARY PROGRESS NOTES Subjective PT ASLEEP DID NOT AWAKEN HER RN REPORTS SOA AT TIMES Vitals Vital Signs Date Time Temp Pulse Resp B/P (MAP) Pulse Ox O2 Delivery O2 Flow Rate FiO2 04/19/19 08:00 Nasal Cannula 2.0 04/19/19 07:22 95 04/19/19 07:00 98.3 86 18 96/47 (63) 98.3 Labs Laboratory Tests Test 04/18/19 13:02 04/19/19 03:45 Glucose (Fingerstick) 203 mg/dL (70-99) White Blood Count 10.2 x10^3/uL (4.0-11.0) Red Blood Count 3.98 x10^6/uL (3.50-5.40) Hemoglobin 11.7 g/dL (12.0-15.5) Hematocrit 35.1 % (36.0-47.0) Mean Corpuscular Volume 88 fL (79-100) Mean Corpuscular Hemoglobin 29 pg (25-35) Mean Corpuscular Hemoglobin Concent 33 g/dL (31-37) Red Cell Distribution Width 15.3 % (11.5-14.5) Platelet Count 246 x10^3/uL (140-400) Neutrophils (%) (Auto) 89 % (31-73) Lymphocytes (%) (Auto) 7 % (24-48) Monocytes (%) (Auto) 4 % (0-9) Eosinophils (%) (Auto) 0 % (0-3) Basophils (%) (Auto) 0 % (0-3) Neutrophils # (Auto) 9.1 x10^3/uL (1.8-7.7) Lymphocytes # (Auto) 0.7 x10^3/uL (1.0-4.8) Monocytes # (Auto) 0.4 x10^3/uL (0.0-1.1) Eosinophils # (Auto) 0.0 x10^3/uL (0.0-0.7) Basophils # (Auto) 0.0 x10^3/uL (0.0-0.2) Sodium Level 142 mmol/L (136-145) Potassium Level 2.9 mmol/L (3.5-5.1) Chloride Level 104 mmol/L (98-107) Carbon Dioxide Level 26 mmol/L (21-32) Anion Gap 12 (6-14) Blood Urea Nitrogen 11 mg/dL (7-20) Creatinine 0.7 mg/dL (0.6-1.0) Estimated GFR (Cockcroft-Gault) 88.9 BUN/Creatinine Ratio 16 (6-20) Glucose Level 150 mg/dL (70-99) Calcium Level 7.8 mg/dL (8.5-10.1) Total Bilirubin 0.2 mg/dL (0.2-1.0) Aspartate Amino Transf (AST/SGOT) 40 U/L (15-37) Alanine Aminotransferase (ALT/SGPT) 53 U/L (14-59) Alkaline Phosphatase 360 U/L (46-116) Total Protein 6.6 g/dL (6.4-8.2) Albumin 2.3 g/dL (3.4-5.0) Albumin/Globulin Ratio 0.5 (1.0-1.7) Laboratory Tests Test 04/18/19 13:02 04/19/19 03:45 Glucose (Fingerstick) 203 mg/dL (70-99) White Blood Count 10.2 x10^3/uL (4.0-11.0) Red Blood Count 3.98 x10^6/uL (3.50-5.40) Hemoglobin 11.7 g/dL (12.0-15.5) Hematocrit 35.1 % (36.0-47.0) Mean Corpuscular Volume 88 fL (79-100) Mean Corpuscular Hemoglobin 29 pg (25-35) Mean Corpuscular Hemoglobin Concent 33 g/dL (31-37) Red Cell Distribution Width 15.3 % (11.5-14.5) Platelet Count 246 x10^3/uL (140-400) Neutrophils (%) (Auto) 89 % (31-73) Lymphocytes (%) (Auto) 7 % (24-48) Monocytes (%) (Auto) 4 % (0-9) Eosinophils (%) (Auto) 0 % (0-3) Basophils (%) (Auto) 0 % (0-3) Neutrophils # (Auto) 9.1 x10^3/uL (1.8-7.7) Lymphocytes # (Auto) 0.7 x10^3/uL (1.0-4.8) Monocytes # (Auto) 0.4 x10^3/uL (0.0-1.1) Eosinophils # (Auto) 0.0 x10^3/uL (0.0-0.7) Basophils # (Auto) 0.0 x10^3/uL (0.0-0.2) Sodium Level 142 mmol/L (136-145) Potassium Level 2.9 mmol/L (3.5-5.1) Chloride Level 104 mmol/L (98-107) Carbon Dioxide Level 26 mmol/L (21-32) Anion Gap 12 (6-14) Blood Urea Nitrogen 11 mg/dL (7-20) Creatinine 0.7 mg/dL (0.6-1.0) Estimated GFR (Cockcroft-Gault) 88.9 BUN/Creatinine Ratio 16 (6-20) Glucose Level 150 mg/dL (70-99) Calcium Level 7.8 mg/dL (8.5-10.1) Total Bilirubin 0.2 mg/dL (0.2-1.0) Aspartate Amino Transf (AST/SGOT) 40 U/L (15-37) Alanine Aminotransferase (ALT/SGPT) 53 U/L (14-59) Alkaline Phosphatase 360 U/L (46-116) Total Protein 6.6 g/dL (6.4-8.2) Albumin 2.3 g/dL (3.4-5.0) Albumin/Globulin Ratio 0.5 (1.0-1.7) Medications Active Scripts Medications Dose Route/Sig Max Daily Dose Days Date Category Oxycontin (Oxycodone HCl) 20 Mg Tab.er.12h 20 Mg PO BID 04/16/19 Reported Pepcid (Famotidine) 40 Mg Tablet 40 Mg PO HS 03/06/19 Reported Compazine (Prochlorperazine Maleate) 10 Mg Tablet 10 Mg PO Q6HRS 03/06/19 Reported Topiramate 100 Mg Tablet 2 Tab PO BID 03/06/19 Reported Venlafaxine Hcl Er (Venlafaxine Hcl) 225 Mg Tab.er.24 1 Tab PO DAILY 09/05/18 Reported Xanax (Alprazolam) 0.5 Mg Tablet 1 Tab PO PRN BID PRN 09/05/18 Reported Gabapentin 600 Mg Tablet 300 Mg PO TID 06/09/18 Reported Levocetirizine Dihydrochloride 5 Mg Tablet 5 Mg PO HS 03/09/18 Reported Carvedilol (Carvedilol) 6.25 Mg Tablet 6.25 Mg PO BIDWMEALS 03/09/18 Reported Oxycodone Hcl Immed.release (Oxycodone Hcl) 10 Mg Tablet 10 Mg PO Q6HRS PRN 03/09/18 Reported Relpax (Eletriptan Hbr) 40 Mg Tablet 40 Mg PO PRN PRN 08/23/17 Reported Flonase Allergy Relief (Fluticasone Propionate) 9.9 Ml [place].susp 2 Sprays NS DAILY 08/23/17 Reported Duoneb 0.5-3(2.5) Mg/3 Ml (Albuterol/Ipratropium) 3 Ml Ampul.neb 3 Ml NEB QID 08/23/17 Reported Proair Hfa Inhaler (Albuterol Sulfate) 8.5 Gm Hfa.aer.ad 1 Puff INH PRN Q6HRS PRN 08/23/17 Reported Advair 250-50 Diskus (Fluticasone/Salmeterol) 1 Each Disk.w.dev 1 Inh IH BID 08/23/17 Reported Cyclobenzaprine Hcl 10 Mg Tablet 10 Mg PO TID PRN PRN 10/31/13 Reported Atorvastatin Calcium 40 Mg Tablet 20 Mg PO DAILY 10/31/13 Reported Singulair Tablet (Montelukast Sodium) 10 Mg Tablet 10 Mg PO HS 10/31/13 Reported Impression . IMPRESSION: 1. Acute hypoxemic respiratory failure. 2. Abnormal CT chest performed on 04/05/2019 revealing mediastinal lymph node, scattered pulmonary nodules, and left-sided pleural thickening along with pleural effusion with bony metastases and liver metastases. 3. Metastatic breast cancer as indicated above. 4. Tobacco dependent. 5. Acute nonspecific bronchitis. 6. Possible pneumonia. 7. Possible lymphangitic spread. Plan . WILL CONTINUE THE SAME CXR REVIEWED NO CHANGE 1. We will empirically continue antibiotics. 2. Steroids. 3. A 6-minute walk prior to discharge. 4. Follow up on pleural fluid analysis, suspect malignant effusion. 5. Overall prognosis appears to be poor. Hopefully, the patient will start responding to the recent clinical trial started on Xeloda. 6. Continue home meds. VAL PEÑA MD Apr 19, 2019 09:24
--- NOTE | 2019-04-19 10:56 | PDOC ---
PROGRESS NOTES Subjective Subjective Hpi - F/u of Left-sided pleural effusion, status post thoracentesis. ROS - Dyspnea improved Objective Objective Vital Signs Date Time Temp Pulse Resp B/P (MAP) Pulse Ox O2 Delivery O2 Flow Rate FiO2 04/19/19 08:00 Nasal Cannula 2.0 04/19/19 07:22 95 04/19/19 07:00 98.3 86 18 96/47 (63) 98.3 Intake and Output 04/19/19 07:00 Intake Total 2550 ml Balance 2550 ml Intake Oral 2550 ml # Voids 2 Physical Exam Heart: Normal S1, Normal S2 General: Alert, Oriented X3 Lungs: Clear to auscultation Neuro: Normal speech Psych/Mental Status: Mental status NL Assessment Assessment Problems Medical Problems: (1) CAP (community acquired pneumonia) Status: Acute (2) Elevated liver function tests Status: Acute (3) Hypoalbuminemia Status: Acute (4) Hypoxia Status: Acute (5) Metastatic breast cancer Status: Acute IMPRESSION AND PLAN: 1. Stage 4 breast cancer with bone metastasis, liver metastasis and left-sided pleural effusion per CT scan performed on 04/05/2019. She did have a biopsy of the pelvic bone on 03/06/2019, which revealed poorly differentiated metastatic triple negative breast cancer. She was started on chemotherapy with Xeloda 2000 mg twice a day for 14 days on every 21 days from 04/13/2019. She missed Xeloda on 04/16/2019 due to hypoxia and admission to other hospital. I have advised her to resume Xeloda from 04/17/2019. 2. Possible pneumonia. She was started on antibiotics. Consult Pulmonary Medicine. 3. Bone metastasis. She will get Xgeva as an outpatient. 4. Left-sided pleural effusion, status post thoracentesis. Continue to monitor. Dyspnea improved Comment Review of Relevant I have reviewed the following items danya (where applicable) has been applied. Labs Laboratory Tests Test 04/18/19 13:02 04/19/19 03:45 04/19/19 10:10 Glucose (Fingerstick) 203 mg/dL (70-99) White Blood Count 10.2 x10^3/uL (4.0-11.0) Red Blood Count 3.98 x10^6/uL (3.50-5.40) Hemoglobin 11.7 g/dL (12.0-15.5) Hematocrit 35.1 % (36.0-47.0) Mean Corpuscular Volume 88 fL (79-100) Mean Corpuscular Hemoglobin 29 pg (25-35) Mean Corpuscular Hemoglobin Concent 33 g/dL (31-37) Red Cell Distribution Width 15.3 % (11.5-14.5) Platelet Count 246 x10^3/uL (140-400) Neutrophils (%) (Auto) 89 % (31-73) Lymphocytes (%) (Auto) 7 % (24-48) Monocytes (%) (Auto) 4 % (0-9) Eosinophils (%) (Auto) 0 % (0-3) Basophils (%) (Auto) 0 % (0-3) Neutrophils # (Auto) 9.1 x10^3/uL (1.8-7.7) Lymphocytes # (Auto) 0.7 x10^3/uL (1.0-4.8) Monocytes # (Auto) 0.4 x10^3/uL (0.0-1.1) Eosinophils # (Auto) 0.0 x10^3/uL (0.0-0.7) Basophils # (Auto) 0.0 x10^3/uL (0.0-0.2) Sodium Level 142 mmol/L (136-145) Potassium Level 2.9 mmol/L (3.5-5.1) 3.2 mmol/L (3.5-5.1) Chloride Level 104 mmol/L (98-107) Carbon Dioxide Level 26 mmol/L (21-32) Anion Gap 12 (6-14) Blood Urea Nitrogen 11 mg/dL (7-20) Creatinine 0.7 mg/dL (0.6-1.0) Estimated GFR (Cockcroft-Gault) 88.9 BUN/Creatinine Ratio 16 (6-20) Glucose Level 150 mg/dL (70-99) Calcium Level 7.8 mg/dL (8.5-10.1) Total Bilirubin 0.2 mg/dL (0.2-1.0) Aspartate Amino Transf (AST/SGOT) 40 U/L (15-37) Alanine Aminotransferase (ALT/SGPT) 53 U/L (14-59) Alkaline Phosphatase 360 U/L (46-116) Total Protein 6.6 g/dL (6.4-8.2) Albumin 2.3 g/dL (3.4-5.0) Albumin/Globulin Ratio 0.5 (1.0-1.7) Laboratory Tests Test 04/18/19 13:02 04/19/19 03:45 04/19/19 10:10 Glucose (Fingerstick) 203 mg/dL (70-99) White Blood Count 10.2 x10^3/uL (4.0-11.0) Red Blood Count 3.98 x10^6/uL (3.50-5.40) Hemoglobin 11.7 g/dL (12.0-15.5) Hematocrit 35.1 % (36.0-47.0) Mean Corpuscular Volume 88 fL (79-100) Mean Corpuscular Hemoglobin 29 pg (25-35) Mean Corpuscular Hemoglobin Concent 33 g/dL (31-37) Red Cell Distribution Width 15.3 % (11.5-14.5) Platelet Count 246 x10^3/uL (140-400) Neutrophils (%) (Auto) 89 % (31-73) Lymphocytes (%) (Auto) 7 % (24-48) Monocytes (%) (Auto) 4 % (0-9) Eosinophils (%) (Auto) 0 % (0-3) Basophils (%) (Auto) 0 % (0-3) Neutrophils # (Auto) 9.1 x10^3/uL (1.8-7.7) Lymphocytes # (Auto) 0.7 x10^3/uL (1.0-4.8) Monocytes # (Auto) 0.4 x10^3/uL (0.0-1.1) Eosinophils # (Auto) 0.0 x10^3/uL (0.0-0.7) Basophils # (Auto) 0.0 x10^3/uL (0.0-0.2) Sodium Level 142 mmol/L (136-145) Potassium Level 2.9 mmol/L (3.5-5.1) 3.2 mmol/L (3.5-5.1) Chloride Level 104 mmol/L (98-107) Carbon Dioxide Level 26 mmol/L (21-32) Anion Gap 12 (6-14) Blood Urea Nitrogen 11 mg/dL (7-20) Creatinine 0.7 mg/dL (0.6-1.0) Estimated GFR (Cockcroft-Gault) 88.9 BUN/Creatinine Ratio 16 (6-20) Glucose Level 150 mg/dL (70-99) Calcium Level 7.8 mg/dL (8.5-10.1) Total Bilirubin 0.2 mg/dL (0.2-1.0) Aspartate Amino Transf (AST/SGOT) 40 U/L (15-37) Alanine Aminotransferase (ALT/SGPT) 53 U/L (14-59) Alkaline Phosphatase 360 U/L (46-116) Total Protein 6.6 g/dL (6.4-8.2) Albumin 2.3 g/dL (3.4-5.0) Albumin/Globulin Ratio 0.5 (1.0-1.7) Microbiology 04/16/19 Blood Culture - Preliminary, Resulted NO GROWTH AFTER 2 DAYS Medications Current Medications Albuterol/ Ipratropium (Duoneb) 3 ml 1X ONCE NEB Last administered on 04/16at 15:59; Start 04/16/19 at 16:15; Stop 04/16/19 at 16:16; Status DC Methylprednisolone Sodium Succinate (SOLU-Medrol 125MG VIAL) 125 mg 1X ONCE IV Last administered on 04/16/19at 16:23; Start 04/16/19 at 16:15; Stop 04/16/19 at 16:16; Status DC Ceftriaxone Sodium (Rocephin) 1 gm 1X ONCE IVP Last administered on 04/16/19at 15:24; Start 04/16/19 at 17:00; Stop 04/16/19 at 17:01; Status DC Methylprednisolone Sodium Succinate (SOLU-Medrol 125MG VIAL) 125 mg 1X ONCE IV ; Start 04/16/19 at 17:00; Stop 04/16/19 at 17:01; Status DC Albuterol/ Ipratropium (Duoneb) 3 ml RTQID NEB Last administered on 04/19/19at 07:20; Start 04/16/19 at 20:00 Guaifenesin (Robitussin Dm) 10 ml PRN Q6HRS PRN PO COUGH; Start 04/16/19 at 16:45 Ketorolac Tromethamine (Toradol 15mg Vial) 15 mg PRN Q6HRS PRN IV PAIN; Start 04/16/19 at 16:45; Stop 04/21/19 at 16:44 Acetaminophen/ Hydrocodone Bitart (Lortab 5/325) 1 tab PRN Q4HRS PRN PO PAIN MILD TO MOD; Start 04/16/19 at 16:45 Zolpidem Tartrate (Ambien) 5 mg PRN QHS PRN PO INSOMNIA; Start 04/16/19 at 16:45 Alprazolam (Xanax) 0.5 mg PRN BID PRN PO ANXIETY Last administered on 04/18/19 09:43; Start 04/16/19 at 16:45 Atorvastatin Calcium (Lipitor) 20 mg QHS PO Last administered on 04/18/19 21:36; Start 04/16/19 at 21:00 Carvedilol (Coreg) 6.25 mg BIDWMEALS PO Last administered on 04/17/19 08:39; Start 04/16/19 at 17:00 Cyclobenzaprine HCl (Flexeril) 10 mg TID PRN PRN PO MUSCLE SPASMS Last administered on 04/18/19 09:42; Start 04/16/19 at 16:45 Montelukast Sodium (Singulair) 10 mg HS PO Last administered on 04/18/19 21:35; Start 04/16/19 at 21:00 Topiramate (Topamax) 200 mg BID PO Last administered on 04/19/19 08:10; Start 04/16/19 at 21:00 Sumatriptan Succinate (Imitrex) 100 mg PRN Q2HR PRN PO MIGRAINE HEADACHE; Start 04/16/19 at 17:15 Famotidine (Pepcid) 40 mg QHS PO Last administered on 04/18/19 21:35; Start 04/16/19 at 21:00 Fluticasone Propionate (Flonase) 2 spray DAILY NS ; Start 04/17/19 at 09:00 Non-Formulary Medication (Fluticasone/ Salmeterol (Advair 250-50 Diskus)) 1 inh BID IH ; Start 04/16/19 at 21:00; Status UNV Gabapentin (Neurontin) 300 mg TID PO Last administered on 04/19/19 08:10; Start 04/16/19 at 21:00 Cetirizine HCl (ZyrTEC) 10 mg QHS PO Last administered on 04/18/19at 21:36; Start 04/16/19 at 21:00 Oxycodone HCl (Roxicodone) 10 mg PRN Q6HRS PRN PO PAIN SEVERE; Start 04/16/19 at 17:00 Oxycodone HCl (OxyCONTIN) 20 mg Q12HR PO Last administered on 04/17/19at 08:38; Start 04/16/19 at 21:00; Stop 04/17/19 at 12:36; Status DC Prochlorperazine Maleate (Compazine) 10 mg Q6HRS PO Last administered on 04/19/19 06:02; Start 04/16/19 at 18:00 Venlafaxine HCl (Effexor Xr) 225 mg DAILY PO Last administered on 04/19/19 08:11; Start 04/17/19 at 09:00 Ceftriaxone Sodium (Rocephin) 1 gm Q24H IVP Last administered on 04/18/19at 17:49; Start 04/17/19 at 17:00 Azithromycin (Zithromax) 250 mg DAILY PO Last administered on 04/19/19 08:10; Start 04/17/19 at 09:00 Azithromycin (Zithromax) 500 mg 1X ONCE PO Last administered on 04/16/19 17:14; Start 04/16/19 at 17:15; Stop 04/16/19 at 17:16; Status DC Acetaminophen (Tylenol) 500 mg PRN Q6HRS PRN PO HEADACHE / TEMP; Start 04/16/19 at 17:00 Ondansetron HCl (Zofran) 4 mg PRN Q6HRS PRN IVP NAUSEA/VOMITING; Start 04/16/19 at 17:00 Furosemide (Lasix) 40 mg 1X ONCE IVP Last administered on 04/16/19at 17:54; Start 04/16/19 at 17:30; Stop 04/16/19 at 17:31; Status DC Ceftriaxone Sodium (Rocephin) 1 gm 1X ONCE IVP ; Start 04/16/19 at 17:30; Stop 04/16/19 at 17:31; Status DC Alprazolam (Xanax) 0.25 mg PRN Q8HRS PRN PO ANXIETY / AGITATION; Start 04/16/19 at 17:15; Status Cancel Budesonide (Pulmicort) 0.5 mg RTBID NEB Last administered on 04/19/19at 07:20; Start 04/16/19 at 20:00 Nicotine (Nicoderm Cq 21mg) 1 patch PRN DAILY PRN TD SMOKING CESSATION; Start 04/16/19 at 17:15 Albuterol/ Ipratropium (Duoneb) 3 ml RTQID NEB ; Start 04/17/19 at 16:00; Stop 04/17/19 at 12:03; Status DC Oxycodone HCl (OxyCONTIN) 20 mg Q12HR@0600,1800 PO Last administered on 04/19/19at 06:03; Start 04/17/19 at 18:00 Non-Formulary Medication 2,000 ea BID PO Last administered on 04/19/19at 08:11; Start 04/17/19 at 13:00 Methylprednisolone Sodium Succinate (SOLU-Medrol 125MG VIAL) 125 mg Q8HRS IV Last administered on 04/19/19at 06:02; Start 04/17/19 at 22:00 Methylprednisolone Sodium Succinate (SOLU-Medrol 125MG VIAL) 125 mg 1X ONCE IV Last administered on 04/17/19at 17:30; Start 04/17/19 at 17:30; Stop 04/17/19 at 17:31; Status DC Potassium Chloride (Klor-Con) 40 meq 1X ONCE PO Last administered on 04/19/19at 06:04; Start 04/19/19 at 06:00; Stop 04/19/19 at 06:01; Status DC Potassium Chloride (Klor-Con) 40 meq 1X ONCE PO Last administered on 04/19/19at 08:09; Start 04/19/19 at 08:00; Stop 04/19/19 at 08:01; Status DC Active Scripts Active Reported Oxycontin (Oxycodone HCl) 20 Mg Tab.er.12h 20 Mg PO BID Pepcid (Famotidine) 40 Mg Tablet 40 Mg PO HS Compazine (Prochlorperazine Maleate) 10 Mg Tablet 10 Mg PO Q6HRS Topiramate 100 Mg Tablet 2 Tab PO BID Venlafaxine Hcl Er (Venlafaxine Hcl) 225 Mg Tab.er.24 1 Tab PO DAILY Xanax (Alprazolam) 0.5 Mg Tablet 1 Tab PO PRN BID PRN Gabapentin 600 Mg Tablet 300 Mg PO TID Levocetirizine Dihydrochloride 5 Mg Tablet 5 Mg PO HS Carvedilol (Carvedilol) 6.25 Mg Tablet 6.25 Mg PO BIDWMEALS Oxycodone Hcl Immed.release (Oxycodone Hcl) 10 Mg Tablet 10 Mg PO Q6HRS PRN Relpax (Eletriptan Hbr) 40 Mg Tablet 40 Mg PO PRN PRN Flonase Allergy Relief (Fluticasone Propionate) 9.9 Ml [place].susp 2 Sprays NS DAILY Duoneb 0.5-3(2.5) Mg/3 Ml (Albuterol/Ipratropium) 3 Ml Ampul.neb 3 Ml NEB QID Proair Hfa Inhaler (Albuterol Sulfate) 8.5 Gm Hfa.aer.ad 1 Puff INH PRN Q6HRS PRN Advair 250-50 Diskus (Fluticasone/Salmeterol) 1 Each Disk.w.dev 1 Inh IH BID Cyclobenzaprine Hcl 10 Mg Tablet 10 Mg PO TID PRN PRN Atorvastatin Calcium 40 Mg Tablet 20 Mg PO DAILY Singulair Tablet (Montelukast Sodium) 10 Mg Tablet 10 Mg PO HS Vitals/I & O Vital Sign - Last 24 Hours 04/18/19 04/18/19 04/18/19 04/18/19 11:40 13:05 13:39 15:00 Temp 98.0 97.9 98.0 97.9 Pulse 110 99 Resp 18 18 B/P (MAP) 101/66 (78) 106/61 (76) Pulse Ox 93 97 95 O2 Delivery Nasal Cannula Nasal Cannula Nasal Cannula Nasal Cannula O2 Flow Rate 2.0 3.0 2.0 2.0 04/18/19 04/18/19 04/18/19 04/18/19 16:21 17:00 19:30 19:32 Temp 98.7 98.7 Pulse 85 116 Resp 18 B/P (MAP) 98/54 120/63 (82) Pulse Ox 100 96 90 O2 Delivery Nasal Cannula Nasal Cannula Room Air O2 Flow Rate 2.0 2.0 10/03/2904/18/19 04/19/19 04/19/19 20:15 23:46 03:47 07:00 Temp 98.4 98.0 98.3 98.4 98.0 98.3 Pulse 113 97 86 Resp 18 18 18 B/P (MAP) 109/65 (80) 104/62 (76) 96/47 (63) Pulse Ox 97 96 96 O2 Delivery Nasal Cannula Nasal Cannula Nasal Cannula Nasal Cannula O2 Flow Rate 2.0 2.0 2.0 2.0 04/19/19 04/19/19 07:22 08:00 Pulse Ox 95 O2 Delivery Room Air Nasal Cannula O2 Flow Rate 2.0 Intake and Output 04/18/19 04/18/19 04/19/19 15:00 23:00 07:00 Intake Total 500 ml 400 ml 1650 ml Balance 500 ml 400 ml 1650 ml JEREMY MELO MD Apr 19, 2019 10:56
[2019-04-19 10:59] VITALS: BP 109/68
[2019-04-19] MEDS ORDERED: methylPREDNISolone SOD SUCC PF 125 MG/2 ML VIAL. IV SCH (14:45)
[2019-04-19] MEDS ORDERED: GUAI5SYR PO (14:48)
[2019-04-19] MEDS ORDERED: AZIT250T6 PO (14:48)
[2019-04-19] MEDS ORDERED: ZOLP5TAB PO (14:48)
[2019-04-19] MEDS ORDERED: Nicotine 21MG TD (14:48)
[2019-04-19] MEDS ORDERED: AMOX1TAB58 PO (14:48)
--- NOTE | 2019-04-19 14:55 | SNU/HH DC ---
DISCHARGE WITH HOME HEALTH DISCHARGE INFORMATION: Final Diagnosis: Problems Medical Problems: (1) CAP (community acquired pneumonia) Status: Acute (2) Elevated liver function tests Status: Acute (3) Hypoalbuminemia Status: Acute (4) Hypoxia Status: Acute (5) Metastatic breast cancer Status: Acute Condition on Discharge: Guarded CODE STATUS: Code Status: Full HOME HEALTH: Face to Face: I certify this patient is under my care and that I, or a nurse practitioner or physician's under water assistant working with me, had a face to face encounter that meets the physician face to face encounter requirements with this patient on [04/19/19]. Medical Complications: COPD, Other (BREAST CANCER) Prison For: Assess & Educate Safety, Medication Management RN For Eval/Treatment: Yes Physical Therapy For: Evalulation/Treatment Occupational Therapy For: Evaluation/Treatment Home Health Aide For: Self-care AN/SQQ 89(V)15 SONAR SYSTEM JOURNEYMAN For: Community Resources Pt Meets Homebound Status: Fatigue w/ amb. POST DISCHARGE ORDERS: Activity Instructions for Disc: Activity as tolerated Weight Bearing Status after Di: No restrictions Bathing Instructions: Shower-keep dressing dry, No Tub Bath until see DIET AFTER DISCHARGE: Regular Wound/Incision Care: Keep wound/cast CDI CHECKS AFTER DISCHARGE: Checks after discharge: Check blood press - daily FOLLOW-UP: PCP to follow Home Health: PCP/ DR MELO TREATMENT/EQUIPMENT ORDERS: Adaptive Equipment Issued: None Discharge Respiratory Equipmen: Nebulizer CERTIFICATION STATEMENT: Certification Statement: Certification Statement: Based on the above finding, I certify that this patient is confined to the home and needs intermittent residential care, physical therapy and/or speech therapy, or continues to need occupational therapy.~ This patient is under my care, and I have initiated the establishment of the plan of care.~ This patient will be followed by myself or a community physician who will periodically review the plan of care. Home Meds Active Scripts Amoxicillin/Potassium Clav (AUGMENTIN 500-125 TABLET) 1 Each Tablet, 1 TAB PO BID for PNEUMONIA for 10 Days, #20 TAB 0 Refills Prov:NIKHIL MARTINEZ MD 04/19/19 Guaifenesin/Dextromethorphan (GUAIFENESIN DM SYRUP) 5 Ml Syrup, 10 ML PO PRN Q6HRS PRN for COUGH for 14 Days, #120 MISC Prov:NIKHIL MARTINEZ MD 04/19/19 Zolpidem Tartrate (AMBIEN) 5 Mg Tablet, 5 MG PO PRN QHS PRN for INSOMNIA for 30 Days, #30 TAB Prov:NIKHIL MARTINEZ MD 04/19/19 [Nicotine 21MG] 1 PATCH PATCH No Conflict Check, 1 PATCH TD PRN DAILY PRN for SMOKING CESSATION for 30 Days, #30 Prov:NIKHIL MARTINEZ MD 04/19/19 Azithromycin (AZITHROMYCIN TABLET) 250 Mg Tablet, 250 MG PO DAILY for PNEUMONITIS for 10 Days, #10 TAB Prov:NIKHIL MARTINEZ MD 04/19/19 Reported Medications Oxycodone Hcl (OXYCONTIN) 20 Mg Tab.er.12h, 20 MG PO BID for PAIN, TAB 04/16/19 Famotidine (PEPCID) 40 Mg Tablet, 40 MG PO HS for GERD, TAB 03/06/19 Prochlorperazine Maleate (Compazine) 10 Mg Tablet, 10 MG PO Q6HRS for nausea, TAB 03/06/19 Topiramate (TOPIRAMATE) 100 Mg Tablet, 2 TAB PO BID for migraine, #60 TAB 1 Refill 03/06/19 Venlafaxine Hcl (VENLAFAXINE HCL ER) 225 Mg Tab.er.24, 1 TAB PO DAILY for DE PRESSION 09/05/18 Alprazolam (XANAX) 0.5 Mg Tablet, 1 TAB PO PRN BID PRN for ANXIETY 09/05/18 Gabapentin (GABAPENTIN) 600 Mg Tablet, 300 MG PO TID for neuropathy 06/09/18 Levocetirizine Dihydrochloride (LEVOCETIRIZINE DIHYDROCHLORIDE) 5 Mg Tablet, 5 MG PO HS 03/09/18 Carvedilol (CARVEDILOL ) 6.25 Mg Tablet, 6.25 MG PO BIDWMEALS for cardiac/bp 03/09/18 Oxycodone Hcl (OXYCODONE HCL IMMED.RELEASE) 10 Mg Tablet, 10 MG PO Q6HRS PRN for PAIN 03/09/18 Eletriptan Hbr (RELPAX) 40 Mg Tablet, 40 MG PO PRN PRN for MIGRAINE HEADACHE, TAB 08/23/17 Fluticasone Propionate (Flonase Allergy Relief) 9.9 Ml [place].susp, 2 SPRAYS NS DAILY, BOTTLE 2/13/18 Ipratropium/Albuterol Sulfate (DUONEB 0.5-3(2.5) MG/3 ML) 3 Ml Ampul.neb, 3 ML NEB QID, EACH 08/23/17 Albuterol Sulfate (PROAIR HFA INHALER) 8.5 Gm Hfa.aer.ad, 1 PUFF INH PRN Q6HRS PRN for SHORTNESS OF BREATH, INHALER 0 Refills 08/23/17 Fluticasone/Salmeterol (ADVAIR 250-50 DISKUS) 1 Each Disk.w.dev, 1 INH IH BID, INHALER 08/23/17 Cyclobenzaprine Hcl (CYCLOBENZAPRINE HCL) 10 Mg Tablet, 10 MG PO TID PRN PRN for MUSCLE SPASMS 10/31/13 Atorvastatin Calcium (ATORVASTATIN CALCIUM) 40 Mg Tablet, 20 MG PO DAILY for cholesterol 10/31/13 Montelukast Sodium (SINGULAIR TABLET ) 10 Mg Tablet, 10 MG PO HS for asthma 10/31/13 NIKHIL MARTINEZ MD Apr 19, 2019 14:55
[2019-04-19 15:00] VITALS: BP 101/63
--- NOTE | 2019-04-19 15:01 | CONS ---
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 She underwent biopsy in 08/2017 followed by lumpectomy and axillary lymph node sampling in 08/2017. She ultimately underwent bilateral completion mastectomies in 10/2017. 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 She had 4 cycles of adjuvant chemotherapy with Adriamycin and Cytoxan, followed by 4 cycles of Taxol. She had significant tumor size involving the left primary and very close, less than 1 mm, margin involving the right primary site of disease. She received bilateral chest wall radiation to 48 Gy, completed in 04/2018. She now has documented biopsy proven osseous metastatic disease biopsied in 02/2019. She also has liver and lung and associated pleural effusion, and just underwent therapeutic thoracentesis on 04/16/2019. We were asked to see regarding the role of radiation treatment in her care. HISTORY OF PRESENT ILLNESS: The patient recently began Xeloda on 04/13/2019, at which time she also underwent Xgeva. She was admitted for increasing shortness of breath. She had a significant left-sided pleural effusion. Following admission, she underwent left thoracentesis with removal of 1.7 liters on 04/16/2019 and this has been well tolerated. Since then, her breathing is improved. She is able to walk to the bathroom without shortness of breath. Prior to thoracentesis, she had significant low back and bilateral hip pain as well as generalized body aches. She has not been pain free over the last 2 days and able to ambulate without difficulty. She had previous significant headaches and underwent MRI imaging of the head on 02/28/2019, which revealed no occult intracranial metastatic disease. Previous PET CT scan on 02/22/2019 revealed hypermetabolic bilateral hilar mediastinal adenopathy, new left pleural effusion with no uptake, 8 mm lingular nodule and multiple sclerotic lesions throughout the axial skeleton with uptake compatible with osseous metastatic disease. Following this, on 03/06/2019, she underwent biopsy of the right iliac bone, which confirmed adenocarcinoma. She then underwent CT scan of the chest, abdomen and pelvis elsewhere on 04/05/[address] Garcia's report revealed mediastinal adenopathy, scattered pulmonary nodules, left-sided pleural thickening with left pleural effusion, bone metastases and liver metastases, not previously appreciated on previous PET CT scan imaging. PHYSICAL EXAMINATION: GENERAL: Revealed a pleasant, alert, cooperative woman, in no acute distress. She is able to move from supine to seated position without difficulty. She had no percussion tenderness across her shoulders, spine, pelvis or hip regions. LYMPH NODES: She had no palpable cervical or supraclavicular adenopathy. EXTREMITIES: Lower extremity strength, sensation and reflexes were intact. She had no significant pedal edema. LABORATORY STUDIES: From 04/19/2019; hemoglobin 11.7, white count 10,200, platelet count 246,000. On 04/19/2019; sodium 142, potassium 2.9 recheck 3.2, creatinine 0.7, glucose 150, calcium 7.8. AST 40, ALT 53, alkaline phosphatase 360. ASSESSMENT AND PLAN: In summary, my impression is that of widespread metastatic adenocarcinoma of the breast, now involving lung pleural effusion, bones and liver. She had transient bilateral hip pain, now absent. She has sclerotic metastases are not at risk for significant pathologic fracture. At this time, I did not recommend palliative radiation therapy. Certainly, this can be added anytime in the future, in the event disease progression causes bone pain or concern for pathologic fracture occurs in the future. I had a thorough discussion with the patient and her son. Thank you for allowing us to participate in her evaluation. JENNA VAZQUEZ MD DR: NERI/manjit JOB#: [id number] / [id number] EUSEBIO Foreman AMAN MD MTDD
--- NOTE | 2019-04-19 16:15 | NUR ---
SINAN following pt. SINAN phoned and faxed orders to [facility]. Pt will dc with home health services today. Discussed with RN.
--- NOTE | 2019-04-19 17:44 | NUR ---
Discharge Note: JAMAAL GUERRERO [facility] Discharge instructions and discharge home medications reviewed with patient and a copy given. All questions have been answered and understanding verbalized. The following instructions and handouts were given: Prescriptions for Augmentin, Zithromax, Prednisone, and Ambien Follow up with PCP in a week Follow up with Oncology as instructed. Continue Xeloda Watch out for worsening of symptoms, increasing shortness of breath, fever, nausea and vomiting. Teaching handouts regarding pleural effusion, thoracentesis and pneumonia. Discontinued lines and drains: peripheral IV intact, patient tolerated removal, no complications noted. Patient discharged to home with home health services via wheelchair accompanied by the patient's spouse at 1650
== END 2019-04-19 16:50 | disposition home health service (06) | DRG 871 ==
LOC: ER 14:42 → 6 SOUTH 16:30
PROVIDERS: ADMIT Internal Medicine; ATTEND Internal Medicine
DX: A41.9 Sepsis, unspecified organism (principal); J18.9 Pneumonia, unspecified organism; J96.01 Acute respiratory failure with hypoxia; E43 Unspecified severe protein-calorie malnutrition; C78.7 Secondary malignant neoplasm of liver and intrahepatic bile duct; J44.0 Chronic obstructive pulmonary disease with (acute) lower respiratory infection; C79.51 Secondary malignant neoplasm of bone; J44.1 Chronic obstructive pulmonary disease with (acute) exacerbation; C50.911 Malignant neoplasm of unspecified site of right female breast; C50.912 Malignant neoplasm of unspecified site of left female breast; E78.5 Hyperlipidemia, unspecified; F17.210 Nicotine dependence, cigarettes, uncomplicated; I10 Essential (primary) hypertension; K21.9 Gastro-esophageal reflux disease without esophagitis; K58.9 Irritable bowel syndrome, unspecified; Z80.1 Family history of malignant neoplasm of trachea, bronchus and lung; Z82.49 Family history of ischemic heart disease and other diseases of the circulatory system; Z83.3 Family history of diabetes mellitus; Z85.3 Personal history of malignant neoplasm of breast; Z85.41 Personal history of malignant neoplasm of cervix uteri; Z90.13 Acquired absence of bilateral breasts and nipples; Z90.710 Acquired absence of both cervix and uterus; F41.9 Anxiety disorder, unspecified; G43.909 Migraine, unspecified, not intractable, without status migrainosus; Z68.35 Body mass index [BMI] 35.0-35.9, adult
CPT/HCPCS: 36415; 36600; 71045; 71046; 80053; 82805; 82962; 83605; 83880; 84132; 84484; 85007; 85025; 85379; 85610; 87040; 93005; 94618; 94640; 94760; 96374; 96375; J0696; J1940; J2930; J7620; J7626; Q0144; Q0164; 97110; 97116; 99285-25; G0378

== ENCOUNTER 2019-05-06 18:53 | Inpatient (IN) | payer BC ==
[~2019-05-06] VITALS: Ht 157.5 cm; Wt 91.2 kg
[~2019-05-06 18:53] MED LIST changes: +AMOX1TAB58 PO; +AZIT250T6 PO; +GUAI5SYR PO; +Nicotine 21MG TD; +ZOLP5TAB PO
[2019-05-06] MEDS ORDERED: IV NORMAL SALINE 1000ML BAG 1,000 ML IV ONE (19:00)
[2019-05-06] MEDS ORDERED: fentaNYL PF VIAL 100 MCG/2 ML VIAL IVP ONE (19:30)
[2019-05-06] MEDS ORDERED: ORPHENADRINE CITRATE 60 MG/2 ML VIAL. IV ONE (19:30)
[2019-05-06] MEDS ORDERED: DEXAMETHASONE SOD PHOS 4 MG/ML VIAL IVP ONE (19:30)
[2019-05-06] MEDS ORDERED: ONDANSETRON PF 4 MG/2 ML VIAL. IVP ONE (19:30)
[2019-05-06 19:57] LABS: BASO % 0 % (0-3); EOS # 0.4 x10^3/uL (0.0-0.7); EOS % 6 % (0-3); HEMATOCRIT 33.7 % (36.0-47.0); HEMOGLOBIN 11.3 g/dL (12.0-15.5); LYMPH # 1.2 x10^3/uL (1.0-4.8); LYMPH % 17 % (24-48); MEAN CORPUSCULAR HEMOGLOBIN 30 pg (25-35); MEAN CORPUSCULAR HGB CONC 34 g/dL (31-37); MEAN CORPUSCULAR VOLUME 89 fL (79-100); MONO # 0.5 x10^3/uL (0.0-1.1); MONO % 8 % (0-9); NEUT # 4.7 x10^3/uL (1.8-7.7); NEUT % 69 % (31-73); PLATELET COUNT 96 x10^3/uL (140-400); RED BLOOD COUNT 3.78 x10^6/uL (3.50-5.40); RED CELL DISTRIBUTION WIDTH 16.5 % (11.5-14.5); WHITE BLOOD COUNT 6.8 x10^3/uL (4.0-11.0)
--- NOTE | 2019-05-06 20:02 | RAD ---
Exam: CT head and cervical spine without contrast INDICATION: Pain TECHNIQUE: Sequential axial images through the head and cervical spine were obtained without the administration of IV contrast. Comparisons: None FINDINGS: Head: Somewhat hyperdense appearance of the right sigmoid sinus. No focal parenchymal lesion or hemorrhage is identified. There is no midline shift or sulcal effacement. No acute vascular territory infarction is identified. Talavera-white distinction is preserved. The ventricular system is within normal limits without compression hydrocephalus. The basal cisterns are well maintained. The visualized portions of the paranasal sinuses and mastoid air cells are well-pneumatized. No acute fractures. Cervical spine: There is straightening of the cervical spine which may be positional. Vertebral body heights are well-maintained. Scattered heterogenous sclerotic appearance throughout the cervical vertebral bodies. Fracture to the cervical spine is not identified. No significant spondylotic change in the cervical spine. There is patchy airspace disease at the right apex. There is a moderate-sized partially visualized left pleural effusion. Expansion of the right internal jugular vein. IMPRESSION: 1. Hyperdense appearance of the right sigmoid sinus, strongly favored to represent dural venous thrombosis. 2. Expanded appearance of the right internal jugular vein which could reflect thrombus. Ultrasound could better evaluate. 3. Heterogenous sclerotic appearance of the osseous structures. Correlate with cancer history for osseous metastatic disease. 4. Partially visualized left pleural effusion. Exposure: One or more of the following in the visualized dose reduction techniques were utilized for this examination: 1. Automated exposure control 2. Adjustment of the MA and/or KV according to patient size 3. Use of iterative of reconstructive technique FOR INTERNAL CODING PURPOSES Critical result: Findings discussed with LAM GOMEZ at 05/06/2019 7:59 PM. RESULT CODE: (C) Electronically signed by: Eamon Burks MD (05/06/2019 8:00 PM) [id number]
[2019-05-06 20:06] LABS: PROTHROMBIN TIME PATIENT 15.2 SEC (11.7-14.0)
[2019-05-06 20:08] LABS: CALCIUM 7.7 mg/dL (8.5-10.1); CREATININE 0.9 mg/dL (0.6-1.0); GFR 66.5; POTASSIUM 3.2 mmol/L (3.5-5.1)
[2019-05-06 20:15] LABS: ALBUMIN 2.4 g/dL (3.4-5.0); ALBUMIN/GLOBULIN RATIO 0.7 (1.0-1.7); MAGNESIUM 2.1 mg/dL (1.8-2.4); TOTAL BILIRUBIN 0.6 mg/dL (0.2-1.0); TOTAL PROTEIN 5.7 g/dL (6.4-8.2)
[2019-05-06] MEDS ORDERED: ASPIRIN 325 MG TABLET PO ONE (20:30)
[2019-05-06 20:32] LABS: % BANDS 7 % (0-9); % EOS 6 % (0-5); % LYMPHS 19 % (24-48); % MONOS 5 % (0-10); % SEGS 63 % (35-66); ANISOCYTOSIS SLIGHT; PLT ESTIMATE DECREASED (ADEQUATE); POLYCHROMASIA SLIGHT
[2019-05-06] MEDS ORDERED: HEPARIN for IV BOLUS 10,000 UNIT/10 ML VIAL. IV PRN ×2 (21:00)
[2019-05-06] MEDS ORDERED: ONDANSETRON PF 4 MG/2 ML VIAL. IV PRN (21:00)
[2019-05-06] MEDS ORDERED: CONTRAST GIVEN. MC PRN (21:15)
[2019-05-06] MEDS ORDERED: IOHEXOL 350 MG/ML 100 ML VIAL. IV ONE (21:15)
--- NOTE | 2019-05-06 21:22 | PHYS DOC ---
Past Medical History Past Medical History: Asthma, Cancer, COPD, Migraines, Pneumonia, Other Additional Past Medical Histor: CERVICAL/BREAST/BONE CA,IRREGULAR HEARTBEAT Past Surgical History: Hysterectomy, Other Additional Past Surgical Histo: SINUS,CERVICAL CA,THOROCENTISIS Smoking: Cigarettes Additional Information: <0.5 PPD Alcohol Use: None Drug Use: None Adult General Chief Complaint Chief Complaint: MULTIPLE COMPLAINTS HPI HPI 49-year-old female with past medical history of breast cancer with metastasis to bone presents with 2-3 day history of right neck pain, headache, facial swelling and numbness, and decreased hearing on right. Reports currently on oral chemotherapy. Patient was recently seen by Dr. Garcia (oncology) on Tuesday for symptoms. Dr. Garcia thought pain secondary to muscle tension. Patient has been taking pain medication without improvement of symptoms. Reports worse today. Review of Systems Review of Systems Constitutional: Denies fever or chills Eyes: Denies redness or eye pain HENT: Denies nasal congestion or sore throat; reports right ear decreased hearing Respiratory: Denies cough or shortness of breath Cardiovascular: Denies chest pain or palpitations GI: Denies abdominal pain; reports nausea : Denies dysuria or hematuria Musculoskeletal: Denies back pain or joint pain Integument: Denies rash or skin lesions Neurologic: Reports headache; denies focal weakness or sensory changes Complete systems were reviewed and found to be within normal limits, except as documented in this note. Current Medications Current Medications Current Medications Medications (Trade) Dose Ordered Sig/Farzana Start Time Stop Time Status Last Admin Dose Admin Aspirin (Sumi Aspirin) 325 mg 1X ONCE 05/06/19 20:30 05/06/19 20:31 DC 05/06/19 20:37 325 MG Dexamethasone Sodium Phosphate (Decadron) 10 mg 1X ONCE 05/06/19 19:30 05/06/19 19:38 DC 05/06/19 19:57 10 MG Fentanyl Citrate (Fentanyl 2ml Vial) 50 mcg PRN Q2HRS PRN 05/06/19 21:00 Heparin Sodium (Porcine) (Heparin Sodium) 1,300 unit PRN Q6HRS PRN 05/06/19 21:00 Heparin Sodium/ Dextrose 500 ml @ 0 mls/hr CONT PRN 05/06/19 21:00 05/06/19 21:39 27.6 MLS/HR Info (Anti-Coagulation Monitoring By Pharmacy) 1 each PRN DAILY PRN 05/06/19 21:15 05/07/19 01:38 1 EACH Info (CONTRAST GIVEN -- Rx MONITORING) 1 each PRN DAILY PRN 05/06/19 21:15 05/08/19 21:14 Iohexol (Omnipaque 350 Mg/ml) 100 ml 1X ONCE 05/06/19 21:15 05/06/19 21:16 DC 05/06/19 21:39 100 ML Ondansetron HCl (Zofran) 4 mg PRN Q8HRS PRN 05/06/19 21:00 05/07/19 20:59 Orphenadrine Citrate (Norflex) 60 mg 1X ONCE 05/06/19 19:30 05/06/19 19:38 DC 05/06/19 19:57 60 MG Sodium Chloride 1,000 ml @ 1,000 mls/hr 1X ONCE 05/06/19 19:00 05/06/19 19:59 DC 05/06/19 19:55 1,000 MLS/HR Allergies Allergies Allergies Coded Allergies Type Severity Reaction Last Updated Verified No Known Drug Allergies 09/06/18 No Physical Exam Physical Exam Constitutional: Well developed, well nourished, no acute distress, non-toxic a ppearance HENT: Normocephalic, atraumatic, oropharynx moist, TM with dullness on right Eyes: PERRL, EOMI, conjunctiva normal, no discharge Neck: Tenderness on range of motion, right sided tenderness and fullness on palpation, supple Cardiovascular: Heart rate tachycardic, regular rhythm Lungs & Thorax: Bilateral breath sounds clear to auscultation, no wheezing Abdomen: Soft, no tenderness Skin: Warm, dry, no erythema, no rash Extremities: No tenderness, ROM intact, no edema Neurologic: Alert and oriented X 3, normal motor function, normal sensory function, no focal deficits noted, cerebellar function intact Psychologic: Affect normal, judgement normal Current Patient Data Vital Signs Vital Signs Date Time Temp Pulse Resp B/P (MAP) Pulse Ox O2 Delivery O2 Flow Rate FiO2 05/06/19 21:14 111 13 135/75 (95) 100 Nasal Cannula 2.0 05/06/19 19:00 99.1 99.1 Lab Values Laboratory Tests Test 05/06/19 19:46 White Blood Count 6.8 x10^3/uL (4.0-11.0) Red Blood Count 3.78 x10^6/uL (3.50-5.40) Hemoglobin 11.3 g/dL (12.0-15.5) L Hematocrit 33.7 % (36.0-47.0) L Mean Corpuscular Volume 89 fL (79-100) Mean Corpuscular Hemoglobin 30 pg (25-35) Mean Corpuscular Hemoglobin Concent 34 g/dL (31-37) Red Cell Distribution Width 16.5 % (11.5-14.5) H Platelet Count 96 x10^3/uL (140-400) L Neutrophils (%) (Auto) 69 % (31-73) Lymphocytes (%) (Auto) 17 % (24-48) L Monocytes (%) (Auto) 8 % (0-9) Eosinophils (%) (Auto) 6 % (0-3) H Basophils (%) (Auto) 0 % (0-3) Neutrophils # (Auto) 4.7 x10^3/uL (1.8-7.7) Lymphocytes # (Auto) 1.2 x10^3/uL (1.0-4.8) Monocytes # (Auto) 0.5 x10^3/uL (0.0-1.1) Eosinophils # (Auto) 0.4 x10^3/uL (0.0-0.7) Basophils # (Auto) 0.0 x10^3/uL (0.0-0.2) Segmented Neutrophils % 63 % (35-66) Band Neutrophils % 7 % (0-9) Lymphocytes % 19 % (24-48) L Monocytes % 5 % (0-10) Eosinophils % 6 % (0-5) H Platelet Estimate Decreased (ADEQUATE) Giant Platelets Few Polychromasia Slight Anisocytosis Slight Prothrombin Time 15.2 SEC (11.7-14.0) H Prothrombin Time INR 1.2 (0.8-1.1) H Activated Partial Thromboplast Time 25 SEC (24-38) Sodium Level 139 mmol/L (136-145) Potassium Level 3.2 mmol/L (3.5-5.1) L Chloride Level 102 mmol/L (98-107) Carbon Dioxide Level 28 mmol/L (21-32) Anion Gap 9 (6-14) Blood Urea Nitrogen 7 mg/dL (7-20) Creatinine 0.9 mg/dL (0.6-1.0) Estimated GFR (Cockcroft-Gault) 66.5 BUN/Creatinine Ratio 8 (6-20) Glucose Level 104 mg/dL (70-99) H Lactic Acid Level 1.9 mmol/L (0.4-2.0) Calcium Level 7.7 mg/dL (8.5-10.1) L Magnesium Level 2.1 mg/dL (1.8-2.4) Total Bilirubin 0.6 mg/dL (0.2-1.0) Aspartate Amino Transferase (AST) 23 U/L (15-37) Alanine Aminotransferase (ALT) 35 U/L (14-59) Alkaline Phosphatase 286 U/L (46-116) H Creatine Kinase 87 U/L (26-192) Creatine Kinase MB (Mass) 1.0 ng/mL (0.0-3.6) Creatine Kinase MB Relative Index 1.1 % (0-4) Troponin I Quantitative < 0.017 ng/mL (0.000-0.055) Total Protein 5.7 g/dL (6.4-8.2) L Albumin 2.4 g/dL (3.4-5.0) L Albumin/Globulin Ratio 0.7 (1.0-1.7) L Lipase 58 U/L (73-393) L Laboratory Tests 05/06/19 19:46 Laboratory Tests 05/06/19 19:46 EKG EKG @1931 Sinus tachycardia at 118bpm, NO ST elevation, baseline artifact Radiology/Procedures Radiology/Procedures PROCEDURE: CT HEAD AND CERVICAL SPINE WO Exam: CT head and cervical spine without contrast INDICATION: Pain TECHNIQUE: Sequential axial images through the head and cervical spine were obtained without the administration of IV contrast. Comparisons: None FINDINGS: Head: Somewhat hyperdense appearance of the right sigmoid sinus. No focal parenchymal lesion or hemorrhage is identified. There is no midline shift or sulcal effacement. No acute vascular territory infarction is identified. Talavera-white distinction is preserved. The ventricular system is within normal limits without compression hydrocephalus. The basal cisterns are well maintained. The visualized portions of the paranasal sinuses and mastoid air cells are well-pneumatized. No acute fractures. Cervical spine: There is straightening of the cervical spine which may be positional. Vertebral body heights are well-maintained. Scattered heterogenous sclerotic appearance throughout the cervical vertebral bodies. Fracture to the cervical spine is not identified. No significant spondylotic change in the cervical spine. There is patchy airspace disease at the right apex. There is a moderate-sized partially visualized left pleural effusion. Expansion of the right internal jugular vein. IMPRESSION: 1. Hyperdense appearance of the right sigmoid sinus, strongly favored to represent dural venous thrombosis. 2. Expanded appearance of the right internal jugular vein which could reflect thrombus. Ultrasound could better evaluate. 3. Heterogenous sclerotic appearance of the osseous structures. Correlate with cancer history for osseous metastatic disease. 4. Partially visualized left pleural effusion. Exposure: One or more of the following in the visualized dose reduction techniques were utilized for this examination: 1. Automated exposure control 2. Adjustment of the MA and/or KV according to patient size 3. Use of iterative of reconstructive technique FOR INTERNAL CODING PURPOSES Critical result: Findings discussed with LAM GOMEZ at 05/06/2019 7:59 PM. RESULT CODE: (C) PROCEDURE: CHEST AP ONLY Exam: Chest one view INDICATION: Weakness TECHNIQUE: Frontal view of the chest Comparisons: 02/16/2019 FINDINGS: Heart is enlarged. Pulmonary vessels are within normal limits. Redemonstration of opacity at the left hilar region with a moderate-sized left pleural effusion. IMPRESSION: Left hilar opacity with moderate left-sided pleural effusion. Electronically signed by: Eamon Burks MD (05/06/2019 10:29 PM) [facility] PROCEDURE: CT ANGIOGRAPHY CHEST Exam: CT of chest with contrast INDICATION: Hypoxia, tachycardia TECHNIQUE: Sequential axial images through the chest obtained following the administration of 100 mL of Omni 350 IV contrast. Sagittal and coronal reformatted images were reconstructed from the axial data and reviewed. 3-D reformatted images were reconstructed from the axial data and reviewed. Comparisons: None FINDINGS: Visualized portions of the thyroid are unremarkable. No enlarged mediastinal lymph nodes are identified. Heart size is normal. There is a small pericardial effusion. Thoracic aorta has a normal course and caliber. Pulmonary artery is not enlarged. No pulmonary embolus is identified within the main, lobar or segmental pulmonary arteries. Airways are patent. Moderate centrilobular emphysematous change noted within the lungs. There is a moderate/large left pleural effusion. Masslike consolidation in the left hilar region. Visualized upper abdomen is unremarkable. Diffuse sclerotic heterogenous appearance noted throughout the osseous structures. No acute fractures. IMPRESSION: 1. No pulmonary embolus identified within the main, lobar or segmental pulmonary arteries. 2. Moderate left-sided pleural effusion. 3. Masslike consolidation at the left hilar region, may represent atelectasis however underlying mass lesion is not excluded. 4. Numerous osseous sclerotic lesions diffusely throughout the visualized osseous structures. Exposure: One or more of the following in the visualized dose reduction techniques were utilized for this examination: 1. Automated exposure control 2. Adjustment of the MA and/or KV according to patient size 3. Use of iterative of reconstructive technique Electronically signed by: Eamon Burks MD (05/06/2019 9:32 PM) [place] [id number] PROCEDURE: VENOUS UPPER EXTREMITY RIGHT Exam: Ultrasound Limited vascular ultrasound Indication: Evaluate for possible venous thrombosis Technique: Real-time grayscale and color Doppler images of the right internal jugular vein were obtained by the department senior clinical data manager. Comparisons: None FINDINGS: There is complete thrombosis of the right internal jugular vein throughout its course in the neck down to the junction with the subclavian vein. IMPRESSION: Complete thrombosis of the right internal jugular vein. Electronically signed by: Eamon Burks MD (05/06/2019 10:55 PM) [place] [id number] Course & Med Decision Making Course & Med Decision Making Pertinent Labs and Imaging studies reviewed. (See chart for details) Patient presents with headache, right neck pain, right face pressure and numbness and decreased hearing on right. Significant history of known breast cancer with metastasis for which patient is currently receiving oral chemotherapy. Patient afebrile. Tachycardia noted. EKG stable. Labs obtained and posted to chart. CT head/cervical spine with concern for dural venous thrombosis and possible thrombosis of right IJ. Heparin bolus/gtt initiated. Discussed case with Dr. Jackson (neurology) who in in agreement with consultation. Recommends venous phase CT imaging to further characterize. Patient subsequently had drop in O2 sats. Concern given known thrombosis, tachycardia and hypoxia, patient may also have acute PE. CTA chest therefore obtained. Discussed possibility of getting venous phase imaging of head with CTA chest. Per radiology would not be able today as venous study would be nondiagnostic. Recommend holding venous phase CT head at this time and obtain US of neck for characterization of RIJ. US positive for occlusion of RIJ. CTA chest without signs of acute PE. Patient requiring admission for further evaluation and treatment. Discussed with Dr. Bee (hospitalist) who is in agreement with admission. Discussed findings and plan with patient and family, who acknowledge understanding and agreement. Dragon Disclaimer Dragon Disclaimer This electronic medical record was generated, in whole or in part, using a voice recognition dictation system. Departure Departure Impression: Primary Impression: Dural venous sinus thrombosis Additional Impressions: Hypoxia HX: breast cancer Internal jugular vein thrombosis Hypokalemia Disposition: ADMITTED INPATIENT Admitting Physician: PRADEEP (Cristal) Condition: GUARDED Referrals: EUSEBIO GRULLON (PCP) Critical Care Time Critical care time was 30 minutes which includes time at bedside, spent in discussion of patient's care with specialists and/or family members, with interpretation of laboratory and/or radiological studies and is exclusive of procedures. Problem Qualifiers Additional Impressions: Internal jugular vein thrombosis Laterality: right Qualified Codes: I82.C11 - Acute embolism and thrombosis of right internal jugular vein LAM GOMEZ DO May 06, 2019 21:22
[2019-05-06] MEDS ORDERED: HEPARIN for IV BOLUS 10,000 UNIT/10 ML VIAL. IV ONE (21:30)
--- NOTE | 2019-05-06 21:35 | RAD ---
Exam: CT of chest with contrast INDICATION: Hypoxia, tachycardia TECHNIQUE: Sequential axial images through the chest obtained following the administration of 100 mL of Omni 350 IV contrast. Sagittal and coronal reformatted images were reconstructed from the axial data and reviewed. 3-D reformatted images were reconstructed from the axial data and reviewed. Comparisons: None FINDINGS: Visualized portions of the thyroid are unremarkable. No enlarged mediastinal lymph nodes are identified. Heart size is normal. There is a small pericardial effusion. Thoracic aorta has a normal course and caliber. Pulmonary artery is not enlarged. No pulmonary embolus is identified within the main, lobar or segmental pulmonary arteries. Airways are patent. Moderate centrilobular emphysematous change noted within the lungs. There is a moderate/large left pleural effusion. Masslike consolidation in the left hilar region. Visualized upper abdomen is unremarkable. Diffuse sclerotic heterogenous appearance noted throughout the osseous structures. No acute fractures. IMPRESSION: 1. No pulmonary embolus identified within the main, lobar or segmental pulmonary arteries. 2. Moderate left-sided pleural effusion. 3. Masslike consolidation at the left hilar region, may represent atelectasis however underlying mass lesion is not excluded. 4. Numerous osseous sclerotic lesions diffusely throughout the visualized osseous structures. Exposure: One or more of the following in the visualized dose reduction techniques were utilized for this examination: 1. Automated exposure control 2. Adjustment of the MA and/or KV according to patient size 3. Use of iterative of reconstructive technique Electronically signed by: Eamon Burks MD (05/06/2019 9:32 PM) [facility]
[2019-05-06] MEDS: HEPARIN 25,000UTS/500ML PREMIX 500 ML IV PRN (21:39)
--- NOTE | 2019-05-06 22:32 | RAD ---
Exam: Chest one view INDICATION: Weakness TECHNIQUE: Frontal view of the chest Comparisons: 02/16/2019 FINDINGS: Heart is enlarged. Pulmonary vessels are within normal limits. Redemonstration of opacity at the left hilar region with a moderate-sized left pleural effusion. IMPRESSION: Left hilar opacity with moderate left-sided pleural effusion. Electronically signed by: Eamon Burks MD (05/06/2019 10:29 PM) [facility]
[2019-05-06 22:50] VITALS: BP 94/62
--- NOTE | 2019-05-06 22:50 | NUR ---
pt admitted to room 107 from ED at this time, able to ambulate to bed from ED bed with SBA. alert and oriented x4, VSS on 2L/NC, able to answer admission questions without difficulty. Heparin gtt infusing per protocol, UFH scheduled for 339. here, pt and updated on plan of care, unit routines, diet, call light and bathroom privileges; both voice understanding. call light in reach, will continue to monitor.
--- NOTE | 2019-05-06 22:58 | RAD ---
Exam: Ultrasound Limited vascular ultrasound Indication: Evaluate for possible venous thrombosis Technique: Real-time grayscale and color Doppler images of the right internal jugular vein were obtained by the department automotive worker. Comparisons: None FINDINGS: There is complete thrombosis of the right internal jugular vein throughout its course in the neck down to the junction with the subclavian vein. IMPRESSION: Complete thrombosis of the right internal jugular vein. Electronically signed by: Eamon Burks MD (05/06/2019 10:55 PM) [facility]
[2019-05-07] VITALS (23 sets, daily range): BP systolic 83–159; BP diastolic 58–90
[2019-05-07] MEDS: ANTI-COAG MONITOR BY PHARMACY. MC PRN ×2 (01:38→12:32)
--- NOTE | 2019-05-07 04:50 | NUR ---
critical UFH >1.10 at this time. per protocol, UFH to be held for one hour then when restarted, decrease by 3 units/kg/hr. Heparin gtt placed on hold at this time, next UFH ordered for 1200 per protocol. pt stable since admission, has been sleeping since left for the night. VSS on 2L/NC. kept her NPO for possibility of intervention for thrombus and occlusion to right IJ. pt is aware of this and voices understanding. will pass on in report, will continue to closely monitor.
--- NOTE | 2019-05-07 07:06 | EKG ---
[facility] [address] [place] [address] Test Date: 2019-05-06 Test Time: 19:31:20 Pat Name: JAMAAL GUERRERO Department: Room: Gender: F Supervising Architect: : [id number] Requested By: LAM GOMEZ Order Number: [id number] Reading MD: Measurements Intervals Rosalia Rate: 118 P: -169 MO: 88 QRS: 25 QRSD: 82 T: 11 QT: 356 QTc: 501 Interpretive Statements SUPRAVENTRICULAR RHYTHM QRS(T) CONTOUR ABNORMALITY CANNOT RULE OUT ANTEROSEPTAL MYOCARDIAL DAMAGE BORDERLINE ECG No previous ECG available for comparison
--- NOTE | 2019-05-07 08:20 | PDOC1 ---
History and Physical Date of Admission Date of Admission DATE: 05/07/19 TIME: 08:16 History of Present Illness History of Present Illness Ms Rausch is a 49-year-old female with past medical history of breast cancer with metastasis to bone, asthma, migraines, smoker who presents with 2-3 day history of right neck pain, headache, facial swelling and numbness, and decreased hearing on right side. Recently seen by Dr. Garcia (oncology) on Tuesday for symptoms and treated for muscle tension. She was found with concerning CT head for right venous sinus thrombosis and found with complete left jugular occlusion on neck ultrasound, started on heparin GTT and admitted for further care. 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 She ultimately underwent bilateral completion mastectomies in 10/2017. 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 She had 4 cycles of adjuvant chemotherapy with Adriamycin and Cytoxan, followed by 4 cycles of Taxol. She had significant tumor size involving the left primary and very close, less than 1 mm, margin involving the right primary site of disease. She received bilateral chest wall radiation to 48 Gy, completed in 04/2018. She now has documented biopsy proven osseous metastatic disease biopsied in 02/2019. She had previous significant headaches and underwent MRI imaging of the head on 02/28/2019, which revealed no occult intracranial metastatic disease. Previous PET CT scan on 02/22/2019 revealed hypermetabolic bilateral hilar mediastinal adenopathy, new left pleural effusion with no uptake, 8 mm lingular nodule and multiple sclerotic lesions throughout the axial skeleton with uptake compatible with osseous metastatic disease. 03/06/2019, she underwent biopsy of the right iliac bone, which confirmed adenocarcinoma. She also has liver and lung and associated pleural effusion, and just underwent therapeutic thoracentesis on 04/16/2019 with removal of 1.7 liters. Was started on Xeloda on 04/13/2019, as well as Xgeva.] Past Medical History Cardiovascular: HTN, Hyperlipidemia, Other Pulmonary: No pertinent hx, Asthma CENTRAL NERVOUS SYSTEM: Migraine GI: GERD, Irritable bowel disease, Other Heme/Onc: No pertinent hx, Cancer Hepatobiliary: No pertinent hx Psych: Anxiety Musculoskeletal: low back pain Rheumatologic: Other Infectious disease: No pertinent hx Renal/: No pertinent hx Endocrine: No pertinent hx Past Surgical History Past Surgical History: Pacemaker, Mastectomy, Tonsillectomy, No pertinent history Family History Family History: Coronary Artery Disease, Diabetes, Heart Disease, Hypertension Social History Smoke: <1 pack per day ALCOHOL: none Drugs: None Current Problem List Problem List Problems Medical Problems: (1) HX: breast cancer Status: Acute (2) Hypokalemia Status: Acute (3) Internal jugular vein thrombosis Status: Acute Current Medications Current Medications Current Medications Sodium Chloride 1,000 ml @ 1,000 mls/hr 1X ONCE IV Last administered on 19:55; Start 05/06/19 at 19:00; Stop 05/06/19 at 19:59; Status DC Dexamethasone Sodium Phosphate (Decadron) 10 mg 1X ONCE IVP Last administered on 05/06/19at 19:57; Start 05/06/19 at 19:30; Stop 05/06/19 at 19:38; Status DC Orphenadrine Citrate (Norflex) 60 mg 1X ONCE IV Last administered on 05/06/19at 19:57; Start 05/06/19 at 19:30; Stop 05/06/19 at 19:38; Status DC Ondansetron HCl (Zofran) 4 mg 1X ONCE IVP Last administered on 05/06/19at 19:57; Start 05/06/19 at 19:30; Stop 05/06/19 at 19:38; Status DC Fentanyl Citrate (Fentanyl 2ml Vial) 50 mcg 1X ONCE IVP Last administered on 05/06/19at 20:02; Start 05/06/19 at 19:30; Stop 05/06/19 at 19:38; Status DC Aspirin (Sumi Aspirin) 325 mg 1X ONCE PO Last administered on 05/06/19at 20:37; Start 05/06/19 at 20:30; Stop 05/06/19 at 20:31; Status DC Heparin Sodium (Porcine) (Heparin Sodium) 6,900 unit 1X ONCE IV Last administered on 05/06/19at 21:36; Start 05/06/19 at 21:30; Stop 05/06/19 at 21:31; Status DC Heparin Sodium/ Dextrose 500 ml @ 0 mls/hr CONT PRN IV PER PROTOCOL Last administered on 05/06/19at 21:39; Start 05/06/19 at 21:00 Heparin Sodium (Porcine) (Heparin Sodium) 2,600 unit PRN Q6HRS PRN IV FOR UFH LEVEL LESS THAN 0.2; Start 05/06/19 at 21:00 Heparin Sodium (Porcine) (Heparin Sodium) 1,300 unit PRN Q6HRS PRN IV FOR UFH LEVEL 0.2 - 0.29; Start 05/06/19 at 21:00 Ondansetron HCl (Zofran) 4 mg PRN Q8HRS PRN IV NAUSEA/VOMITING 1ST CHOICE; Start 05/06/19 at 21:00; Stop 05/07/19 at 20:59 Fentanyl Citrate (Fentanyl 2ml Vial) 50 mcg PRN Q2HRS PRN IV SEVERE PAIN 7-10; Start 05/06/19 at 21:00 Iohexol (Omnipaque 350 Mg/ml) 100 ml 1X ONCE IV Last administered on 05/06/19at 21:39; Start 05/06/19 at 21:15; Stop 05/06/19 at 21:16; Status DC Info (Anti-Coagulation Monitoring By Pharmacy) 1 each PRN DAILY PRN MC SEE COMMENTS Last administered on 05/07/19at 01:38; Start 05/06/19 at 21:15 Info (CONTRAST GIVEN -- Rx MONITORING) 1 each PRN DAILY PRN MC SEE COMMENTS; Start 05/06/19 at 21:15; Stop 05/08/19 at 21:14 Active Scripts Active Augmentin 500-125 Tablet (Amoxicillin/Potassium Clav) 1 Each Tablet 1 Tab PO BID 10 Days Guaifenesin Dm Syrup (Guaifenesin/Dextromethorphan) 5 Ml Syrup 10 Ml PO PRN Q6HRS PRN 14 Days Ambien (Zolpidem Tartrate) 5 Mg Tablet 5 Mg PO PRN QHS PRN 30 Days [Nicotine 21MG] 1 PATCH Patch 1 Patch TD PRN DAILY PRN 30 Days Azithromycin Tablet (Azithromycin) 250 Mg Tablet 250 Mg PO DAILY 10 Days Reported Oxycontin (Oxycodone HCl) 20 Mg Tab.er.12h 20 Mg PO BID Pepcid (Famotidine) 40 Mg Tablet 40 Mg PO HS Compazine (Prochlorperazine Maleate) 10 Mg Tablet 10 Mg PO Q6HRS Topiramate 100 Mg Tablet 2 Tab PO BID Venlafaxine Hcl Er (Venlafaxine Hcl) 225 Mg Tab.er.24 1 Tab PO DAILY Xanax (Alprazolam) 0.5 Mg Tablet 1 Tab PO PRN BID PRN Gabapentin 600 Mg Tablet 300 Mg PO TID Levocetirizine Dihydrochloride 5 Mg Tablet 5 Mg PO HS Carvedilol (Carvedilol) 6.25 Mg Tablet 6.25 Mg PO BIDWMEALS Oxycodone Hcl Immed.release (Oxycodone Hcl) 10 Mg Tablet 10 Mg PO Q6HRS PRN Relpax (Eletriptan Hbr) 40 Mg Tablet 40 Mg PO PRN PRN Flonase Allergy Relief (Fluticasone Propionate) 9.9 Ml [place].susp 2 Sprays NS DAILY Duoneb 0.5-3(2.5) Mg/3 Ml (Albuterol/Ipratropium) 3 Ml Ampul.neb 3 Ml NEB QID Proair Hfa Inhaler (Albuterol Sulfate) 8.5 Gm Hfa.aer.ad 1 Puff INH PRN Q6HRS PRN Advair 250-50 Diskus (Fluticasone/Salmeterol) 1 Each Disk.w.dev 1 Inh IH BID Cyclobenzaprine Hcl 10 Mg Tablet 10 Mg PO TID PRN PRN Atorvastatin Calcium 40 Mg Tablet 20 Mg PO DAILY Singulair Tablet (Montelukast Sodium) 10 Mg Tablet 10 Mg PO HS Allergies Allergies: Coded Allergies: No Known Drug Allergies (Unverified , 09/06/18) ROS General: YES: Fatigue, Malaise; No: Chills, Night Sweats, Appetite, Other PSYCHOLOGICAL ROS: YES: Anxiety, Depression, Disorientation; No: Behavioral Disorder, Concentration difficultie, Decreased libido, Hallucinations, Hostility, Irritablity, Memory difficulties, Mood Swings, Obsessive thoughts, Physical abuse, Sexual abuse, Sleep disturbances, Suicidal ideation, Other Eyes: Yes Blurry vision; No Decreased vision, No Double vision, No Dry eyes, No Excessive tearing, No Eye Pain, No Itchy Eyes, No Loss of vision, No Photophobia, No Scotomata, No Uses contacts, No Uses glasses, No Other HEENT: YES: Heacaches, Nasal congestion, Nasal discharge; No: Visual Changes, Hearing change, Oral lesions, Sinus pain, Sore Throat, Epistaxis, Sneezing, Snoring, Tinnitus, Vertigo, Vocal changes, Other ALLERGY AND IMMUNOLOGY: No: Hives, Insect Bite Sensitivity, Itchy/Watery Eyes, Nasal Congestion, Post Nasal Drip, Seasonal Allergies, Other Hematological and Lymphatic: No: Bleeding Problems, Blood Clots, Blood Transfusions, Brusing, Night Sweats, Pallor, Swollen Lymph Nodes, Other ENDOCRINE: No: Breast Changes, Galactorrhea, Hair Pattern Changes, Hot Flashes, Malaise/lethargy, Mood Swings, Palpitations, Polydipsia/polyuria, Skin Changes, Temperature Intolerance, Unexpected Weight Changes, Other Breast: No New/Changing Breast Lumps, No Nipple changes, No Nipple discharge, No Other Respiratory: No: Cough, Hemoptysis, Orthopnea, Pleuritic Pain, Shortness of breath, SOB with excertion, Sputum Changes, Stridor, Tachypnea, Wheezing, Other Cardiovascular: No Chest Pain, No Palpitations, No Orthopnea, No Paroxysmal Noc. Dyspnea, No Edema, No Lt Headedness, No Other Gastrointestinal: No Nausea, No Vomiting, No Abdominal Pain, No Diarrhea, No Constipation, No Melena, No Hematochezia, No Other Genitourinary: No Dysuria, No Frequency, No Incontinence, No Hematuria, No Retention, No Discharge, No Urgency, No Pain, No Flank Pain, No Other, No , No , No , No , No , No , No Musculoskeletal: No Gait Disturbance, No Joint Pain, No Joint Stiffness, No Joint Swelling, No Muscle Pain, No Muscular Weakness, No Pain In:, No Swelling In:, No Other Neurological: No Behavorial Changes, No Bowel/Bladder ControlChng, No Confusion, No Dizziness, No Gait Disturbance, No Headaches, No Impaired Coord/balance, No Memory Loss, No Numbness/Tingling, No Seizures, No Speech Problems, No Tremors, No Visual Changes, No Weakness, No Other Skin: No Dry Skin, No Eczema, No Hair Changes, No Lumps, No Mole Changes, No Mottling, No Nail Changes, No Pruritus, No Rash, No Skin Lesion Changes, No Other, No Acne Physical Exam General: Alert, Oriented X3, Cooperative, No acute distress HEENT: Atraumatic, PERRLA, EOMI, Mucous membr. moist/pink Lungs: Clear to auscultation, Normal air movement Heart: S1S2, RRR, no thrills, no rubs, no gallops, no murmurs Abdomen: Normal bowel sounds, Soft, No tenderness, No hepatosplenomegaly, No masses Rectal Exam: not examined Extremities: No clubbing, No cyanosis, No edema, Normal pulses, No tenderness/swelling Skin: No rashes, No breakdown, No significant lesion Neuro: Normal gait, Normal speech, Strength at 5/5 X4 ext, Normal tone, Sensation intact, Cranial nerves 3-12 NL, Reflexes 2+ Psych/Mental Status: Mental status NL, Mood NL Vitals Vitals Vital Signs Date Time Temp Pulse Resp B/P (MAP) Pulse Ox O2 Delivery O2 Flow Rate FiO2 05/07/19 06:00 96 14 86/70 (75) 94 Nasal Cannula 2.0 05/07/19 04:00 98.1 98.1 Labs Labs Laboratory Tests Test 05/06/19 19:46 05/06/19 23:50 05/07/19 03:55 White Blood Count 6.8 x10^3/uL (4.0-11.0) Red Blood Count 3.78 x10^6/uL (3.50-5.40) Hemoglobin 11.3 g/dL (12.0-15.5) Hematocrit 33.7 % (36.0-47.0) Mean Corpuscular Volume 89 fL (79-100) Mean Corpuscular Hemoglobin 30 pg (25-35) Mean Corpuscular Hemoglobin Concent 34 g/dL (31-37) Red Cell Distribution Width 16.5 % (11.5-14.5) Platelet Count 96 x10^3/uL (140-400) Neutrophils (%) (Auto) 69 % (31-73) Lymphocytes (%) (Auto) 17 % (24-48) Monocytes (%) (Auto) 8 % (0-9) Eosinophils (%) (Auto) 6 % (0-3) Basophils (%) (Auto) 0 % (0-3) Neutrophils # (Auto) 4.7 x10^3/uL (1.8-7.7) Lymphocytes # (Auto) 1.2 x10^3/uL (1.0-4.8) Monocytes # (Auto) 0.5 x10^3/uL (0.0-1.1) Eosinophils # (Auto) 0.4 x10^3/uL (0.0-0.7) Basophils # (Auto) 0.0 x10^3/uL (0.0-0.2) Segmented Neutrophils % 63 % (35-66) Band Neutrophils % 7 % (0-9) Lymphocytes % 19 % (24-48) Monocytes % 5 % (0-10) Eosinophils % 6 % (0-5) Platelet Estimate Decreased (ADEQUATE) Giant Platelets Few Polychromasia Slight Anisocytosis Slight Prothrombin Time 15.2 SEC (11.7-14.0) Prothromb Time International Ratio 1.2 (0.8-1.1) Activated Partial Thromboplast Time 25 SEC (24-38) Sodium Level 139 mmol/L (136-145) Potassium Level 3.2 mmol/L (3.5-5.1) Chloride Level 102 mmol/L (98-107) Carbon Dioxide Level 28 mmol/L (21-32) Anion Gap 9 (6-14) Blood Urea Nitrogen 7 mg/dL (7-20) Creatinine 0.9 mg/dL (0.6-1.0) Estimated GFR (Cockcroft-Gault) 66.5 BUN/Creatinine Ratio 8 (6-20) Glucose Level 104 mg/dL (70-99) Lactic Acid Level 1.9 mmol/L (0.4-2.0) Calcium Level 7.7 mg/dL (8.5-10.1) Magnesium Level 2.1 mg/dL (1.8-2.4) Total Bilirubin 0.6 mg/dL (0.2-1.0) Aspartate Amino Transf (AST/SGOT) 23 U/L (15-37) Alanine Aminotransferase (ALT/SGPT) 35 U/L (14-59) Alkaline Phosphatase 286 U/L (46-116) Creatine Kinase 87 U/L (26-192) Creatine Kinase MB (Mass) 1.0 ng/mL (0.0-3.6) Creatine Kinase MB Relative Index 1.1 % (0-4) Troponin I Quantitative < 0.017 ng/mL (0.000-0.055) < 0.017 ng/mL (0.000-0.055) < 0.017 ng/mL (0.000-0.055) Total Protein 5.7 g/dL (6.4-8.2) Albumin 2.4 g/dL (3.4-5.0) Albumin/Globulin Ratio 0.7 (1.0-1.7) Lipase 58 U/L (73-393) Heparin Anti-Xa Act, Unfractionated > 1.10 IU/mL (0.30-0.70) Laboratory Tests Test 05/06/19 19:46 05/06/19 23:50 05/07/19 03:55 White Blood Count 6.8 x10^3/uL (4.0-11.0) Red Blood Count 3.78 x10^6/uL (3.50-5.40) Hemoglobin 11.3 g/dL (12.0-15.5) Hematocrit 33.7 % (36.0-47.0) Mean Corpuscular Volume 89 fL (79-100) Mean Corpuscular Hemoglobin 30 pg (25-35) Mean Corpuscular Hemoglobin Concent 34 g/dL (31-37) Red Cell Distribution Width 16.5 % (11.5-14.5) Platelet Count 96 x10^3/uL (140-400) Neutrophils (%) (Auto) 69 % (31-73) Lymphocytes (%) (Auto) 17 % (24-48) Monocytes (%) (Auto) 8 % (0-9) Eosinophils (%) (Auto) 6 % (0-3) Basophils (%) (Auto) 0 % (0-3) Neutrophils # (Auto) 4.7 x10^3/uL (1.8-7.7) Lymphocytes # (Auto) 1.2 x10^3/uL (1.0-4.8) Monocytes # (Auto) 0.5 x10^3/uL (0.0-1.1) Eosinophils # (Auto) 0.4 x10^3/uL (0.0-0.7) Basophils # (Auto) 0.0 x10^3/uL (0.0-0.2) Segmented Neutrophils % 63 % (35-66) Band Neutrophils % 7 % (0-9) Lymphocytes % 19 % (24-48) Monocytes % 5 % (0-10) Eosinophils % 6 % (0-5) Platelet Estimate Decreased (ADEQUATE) Giant Platelets Few Polychromasia Slight Anisocytosis Slight Prothrombin Time 15.2 SEC (11.7-14.0) Prothromb Time International Ratio 1.2 (0.8-1.1) Activated Partial Thromboplast Time 25 SEC (24-38) Sodium Level 139 mmol/L (136-145) Potassium Level 3.2 mmol/L (3.5-5.1) Chloride Level 102 mmol/L (98-107) Carbon Dioxide Level 28 mmol/L (21-32) Anion Gap 9 (6-14) Blood Urea Nitrogen 7 mg/dL (7-20) Creatinine 0.9 mg/dL (0.6-1.0) Estimated GFR (Cockcroft-Gault) 66.5 BUN/Creatinine Ratio 8 (6-20) Glucose Level 104 mg/dL (70-99) Lactic Acid Level 1.9 mmol/L (0.4-2.0) Calcium Level 7.7 mg/dL (8.5-10.1) Magnesium Level 2.1 mg/dL (1.8-2.4) Total Bilirubin 0.6 mg/dL (0.2-1.0) Aspartate Amino Transf (AST/SGOT) 23 U/L (15-37) Alanine Aminotransferase (ALT/SGPT) 35 U/L (14-59) Alkaline Phosphatase 286 U/L (46-116) Creatine Kinase 87 U/L (26-192) Creatine Kinase MB (Mass) 1.0 ng/mL (0.0-3.6) Creatine Kinase MB Relative Index 1.1 % (0-4) Troponin I Quantitative < 0.017 ng/mL (0.000-0.055) < 0.017 ng/mL (0.000-0.055) < 0.017 ng/mL (0.000-0.055) Total Protein 5.7 g/dL (6.4-8.2) Albumin 2.4 g/dL (3.4-5.0) Albumin/Globulin Ratio 0.7 (1.0-1.7) Lipase 58 U/L (73-393) Heparin Anti-Xa Act, Unfractionated > 1.10 IU/mL (0.30-0.70) Images Images CT head - 1. Hyperdense appearance of the right sigmoid sinus, strongly favored to represent dural venous thrombosis. 2. Expanded appearance of the right internal jugular vein which could reflect thrombus. Ultrasound could better evaluate. 3. Heterogenous sclerotic appearance of the osseous structures. Correlate with cancer history for osseous metastatic disease. 4. Partially visualized left pleural effusion. CTPA - 1. No pulmonary embolus identified within the main, lobar or segmental pulmonary arteries. 2. Moderate left-sided pleural effusion. 3. Masslike consolidation at the left hilar region, may represent atelectasis however underlying mass lesion is not excluded. 4. Numerous osseous sclerotic lesions diffusely throughout the visualized osseous structures. VTE Prophylaxis Ordered VTE Prophylaxis Devices: Yes VTE Pharmacological Prophylaxi: Yes Assessment/Plan Assessment/Plan A/P: Hyperdense appearance of the right sigmoid sinus, strongly favored to represent dural venous thrombosis - will obtain neurology consultation and confirmatory MR V given her symptoms. Cont anticoagulation for now Anemia - Likely related to active cancer, will monitor Hypokalemia - replaced oral, will monitor Metastatic breast cancer - triple negative, has an overall poor prognosis and has had a bad year, likely her clot is related to active malignancy. Will consult heme/onc for advice on both. Expanded appearance of the right internal jugular vein which could reflect thrombus. Ultrasound confirmed this. Continue anticoagulation Heterogenous sclerotic appearance of the osseous structures. Correlate with cancer history for osseous metastatic disease. Left pleural effusion - this is recurrent, had a thoracentesis previously this month. Not clear if it was malignant. Anxiety with depression - will cont meds Asthma - will cont inhalers Smoker - nicotine patch FEN - NPO, General diet after PPX - heparin FULL CODE Dispo - ICU for thrombus, will await downgrade until neuro recs CC time 36 minutes DEWAYNE GASPAR MD May 07, 2019 08:20
[2019-05-07] MEDS ORDERED: ALBUTEROL SULFATE 2.5 MG/3 ML NEBU. INH PRN (09:45)
[2019-05-07] MEDS ORDERED: ZOLPIDEM 5 MG TABLET. PO PRN (09:45)
[2019-05-07] MEDS ORDERED: POTASSIUM CHLORIDE 10MEQ 100 ML IV SCH (10:30)
[2019-05-07] MEDS ORDERED: PROCHLORPERAZINE 5 MG TABLET. PO PRN (10:30)
--- NOTE | 2019-05-07 10:54 | PDOC2 ---
NEUROLOGY CONSULT Date of Admission Date of Admission DATE: 05/07/19 TIME: 10:44 Reason for Consult Reason for Consult: Dural sinus thrombosis Referring Physician Referring Physician: Dr. García Source Source: Caregiver (), Chart review, Patient History of Present Illness History of Present Illness The patient is a 49-year-old right-handed female with metastatic breast cancer who has had up to one or 2 weeks of right-sided neck pain, headache, facial swelling, and numbness. She has also had decreased hearing on the right side. She had a CT of the head yesterday showing right venous sinus thrombosis and ultrasound has shown right jugular occlusion. She is on a heparin drip now. She says that her headache is better. There is no history of stroke, seizure, or head injury. Past Medical History Cardiovascular: HTN, Hyperlipidemia Pulmonary: Asthma, Other ( sleep apnea, not on CPAP) CENTRAL NERVOUS SYSTEM: Migraine GI: GERD, Irritable bowel disease Heme/Onc: Cancer (Breast, cervical) Psych: Anxiety, Depression Musculoskeletal: low back pain, Osteoarthritis, Other ( left 5th digit fracture) Past Surgical History Past Surgical History: Hysterectomy (cervix), Other ( sinus, breast biopsy, portacath and removal) Family History Family History: CAD Social History Social History , ex smoker, no alcohol Current Medications Current Medications Current Medications Sodium Chloride 1,000 ml @ 1,000 mls/hr 1X ONCE IV Last administered on 05/06/19at 19:55; Start 05/06/19 at 19:00; Stop 05/06/19 at 19:59; Status DC Dexamethasone Sodium Phosphate (Decadron) 10 mg 1X ONCE IVP Last administered on 05/06/19at 19:57; Start 05/06/19 at 19:30; Stop 05/06/19 at 19:38; Status DC Orphenadrine Citrate (Norflex) 60 mg 1X ONCE IV Last administered on 05/06/19 19:57; Start 05/06/19 at 19:30; Stop 05/06/19 at 19:38; Status DC Ondansetron HCl (Zofran) 4 mg 1X ONCE IVP Last administered on 05/06/19at 19:57; Start 05/06/19 at 19:30; Stop 05/06/19 at 19:38; Status DC Fentanyl Citrate (Fentanyl 2ml Vial) 50 mcg 1X ONCE IVP Last administered on 05/06/19at 20:02; Start 05/06/19 at 19:30; Stop 05/06/19 at 19:38; Status DC Aspirin (Sumi Aspirin) 325 mg 1X ONCE PO Last administered on 05/06/19at 20:37; Start 05/06/19 at 20:30; Stop 05/06/19 at 20:31; Status DC Heparin Sodium (Porcine) (Heparin Sodium) 6,900 unit 1X ONCE IV Last administered on 05/06/19at 21:36; Start 05/06/19 at 21:30; Stop 05/06/19 at 21:31; Status DC Heparin Sodium/ Dextrose 500 ml @ 0 mls/hr CONT PRN IV PER PROTOCOL Last administered on 05/06/19at 21:39; Start 05/06/19 at 21:00 Heparin Sodium (Porcine) (Heparin Sodium) 2,600 unit PRN Q6HRS PRN IV FOR UFH LEVEL LESS THAN 0.2; Start 05/06/19 at 21:00 Heparin Sodium (Porcine) (Heparin Sodium) 1,300 unit PRN Q6HRS PRN IV FOR UFH LEVEL 0.2 - 0.29; Start 05/06/19 at 21:00 Ondansetron HCl (Zofran) 4 mg PRN Q8HRS PRN IV NAUSEA/VOMITING 1ST CHOICE; Start 05/06/19 at 21:00; Stop 05/07/19 at 20:59 Fentanyl Citrate (Fentanyl 2ml Vial) 50 mcg PRN Q2HRS PRN IV SEVERE PAIN 7-10; Start 05/06/19 at 21:00 Iohexol (Omnipaque 350 Mg/ml) 100 ml 1X ONCE IV Last administered on 05/06/19at 21:39; Start 05/06/19 at 21:15; Stop 05/06/19 at 21:16; Status DC Info (Anti-Coagulation Monitoring By Pharmacy) 1 each PRN DAILY PRN MC SEE COMMENTS Last administered on 05/07/19at 01:38; Start 05/06/19 at 21:15 Info (CONTRAST GIVEN -- Rx MONITORING) 1 each PRN DAILY PRN MC SEE COMMENTS; Start 05/06/19 at 21:15; Stop 05/08/19 at 21:14 Albuterol Sulfate (Ventolin Neb Soln) 2.5 mg PRN Q6HRS PRN INH SHORTNESS OF BREATH; Start 05/07/19 at 09:45 Alprazolam (Xanax) 0.5 mg PRN BID PRN PO ANXIETY; Start 05/07/19 at 09:45 Atorvastatin Calcium (Lipitor) 20 mg QHS PO ; Start 05/07/19 at 21:00 Carvedilol (Coreg) 6.25 mg BIDWMEALS PO ; Start 05/07/19 at 17:00 Cyclobenzaprine HCl (Flexeril) 10 mg TID PRN PRN PO MUSCLE SPASMS; Start 05/07/19 at 09:45 Albuterol/ Ipratropium (Duoneb) 3 ml RTQID NEB ; Start 05/07/19 at 13:00 Montelukast Sodium (Singulair) 10 mg HS PO ; Start 05/07/19 at 21:00 Topiramate (Topamax) 200 mg BID PO ; Start 05/07/19 at 10:00 Zolpidem Tartrate (Ambien) 5 mg PRN QHS PRN PO INSOMNIA; Start 05/07/19 at 09:45 Sumatriptan Succinate (Imitrex) 100 mg PRN Q2HR PRN PO MIGRAINE HEADACHE; Start 05/07/19 at 10:15 Famotidine (Pepcid) 20 mg BID PO ; Start 05/07/19 at 21:00 Fluticasone Propionate (Flonase) 2 spray DAILY NS ; Start 05/08/19 at 09:00 Non-Formulary Medication (Fluticasone/ Salmeterol (Advair 250-50 Diskus)) 1 inh BID IH ; Start 05/07/19 at 21:00; Status UNV Gabapentin (Neurontin) 300 mg TID PO ; Start 05/07/19 at 14:00 Cetirizine HCl (ZyrTEC) 10 mg DAILY PO ; Start 05/08/19 at 09:00 Oxycodone HCl (Roxicodone) 10 mg PRN Q6HRS PRN PO PAIN; Start 05/07/19 at 10:00 Oxycodone HCl (OxyCONTIN) 20 mg Q12HR PO ; Start 05/07/19 at 10:00 Prochlorperazine Maleate (Compazine) 10 mg PRN Q6HRS PRN PO NAUSEA/VOMITING; Start 05/07/19 at 10:30 Venlafaxine HCl (Effexor Xr) 225 mg DAILY PO ; Start 05/07/19 at 10:00 Nicotine (Nicoderm Cq 21mg) 1 patch PRN DAILY PRN TD SMOKING CESSATION; Start 05/08/19 at 09:00 Budesonide (Pulmicort) 0.5 mg RTBID NEB ; Start 05/07/19 at 11:00 Potassium Chloride/Water 100 ml @ 100 mls/hr Q1H IV ; Start 05/07/19 at 10:30; Stop 05/07/19 at 14:29 Active Scripts Active Ambien (Zolpidem Tartrate) 5 Mg Tablet 5 Mg PO PRN QHS PRN 30 Days [Nicotine 21MG] 1 PATCH Patch 1 Patch TD PRN DAILY PRN 30 Days Reported Oxycontin (Oxycodone HCl) 20 Mg Tab.er.12h 20 Mg PO BID Pepcid (Famotidine) 40 Mg Tablet 40 Mg PO HS Compazine (Prochlorperazine Maleate) 10 Mg Tablet 10 Mg PO Q6HRS Topiramate 100 Mg Tablet 2 Tab PO BID Venlafaxine Hcl Er (Venlafaxine Hcl) 225 Mg Tab.er.24 1 Tab PO DAILY Xanax (Alprazolam) 0.5 Mg Tablet 1 Tab PO PRN BID PRN Gabapentin 600 Mg Tablet 300 Mg PO TID Levocetirizine Dihydrochloride 5 Mg Tablet 5 Mg PO HS Carvedilol (Carvedilol) 6.25 Mg Tablet 6.25 Mg PO BIDWMEALS Oxycodone Hcl Immed.release (Oxycodone Hcl) 10 Mg Tablet 10 Mg PO Q6HRS PRN Relpax (Eletriptan Hbr) 40 Mg Tablet 40 Mg PO PRN PRN Flonase Allergy Relief (Fluticasone Propionate) 9.9 Ml [place]well.susp 2 Sprays NS DAILY Duoneb 0.5-3(2.5) Mg/3 Ml (Albuterol/Ipratropium) 3 Ml Ampul.neb 3 Ml NEB QID Proair Hfa Inhaler (Albuterol Sulfate) 8.5 Gm Hfa.aer.ad 1 Puff INH PRN Q6HRS PRN Advair 250-50 Diskus (Fluticasone/Salmeterol) 1 Each Disk.w.dev 1 Inh IH BID Cyclobenzaprine Hcl 10 Mg Tablet 10 Mg PO TID PRN PRN Atorvastatin Calcium 40 Mg Tablet 20 Mg PO HS Singulair Tablet (Montelukast Sodium) 10 Mg Tablet 10 Mg PO HS Allergies Allergies: Coded Allergies: No Known Drug Allergies (Unverified , 09/06/18) ROS Review of System Negative for fever, chills, weight loss, shortness of breath, chest pain, indigestion, hematochezia, melena, and dysuria. Full 14-point review of systems is negative. Physical Exam Physical Examination General: Well-developed, well-nourished, white female, in no acute distress HEENT: Normocephalic andatraumatic. Temporal arteriespulsatile and nontender. Neck: Supple without bruit, no meningismus Musculoskeletal: Stability:see neurologic. Gait exam:see neurologic. Tone:see neurologic.Strength:see neurologic. Neurological: Mental Status:intact, orientation, memory, attention span/concentration, language, fund of knowledge normal. Cranial Nerves:Pupils equal and reactive to light, extraocular movements areintact, visual vera are full to confrontation. Facial sensation is normal. There is no facial asymmetry. Vestibulo-ocular reflex is intact. Palate elevates and tongue protrudes in midline. All other cranial related problems are negative except as mentioned before.Reflexes:2+ and symmetric with flexor plantar responses. Motor:5/5 strength with normal tone and bulk. Coordination:Finger-nose finger and eytd-dt-bhkm testing are normal. Rapid alternating movements and fine finger movements are intact. Gait:not tested. Sensory:Normal pinprick, vibration, light touch, proprioception. Vitals VITALS Vital Signs Date Time Temp Pulse Resp B/P (MAP) Pulse Ox O2 Delivery O2 Flow Rate FiO2 05/07/19 10:00 90 18 92/69 (77) 91 Nasal Cannula 2.0 05/07/19 04:00 98.1 98.1 Labs Labs Laboratory Tests Test 05/06/19 19:46 05/06/19 23:50 05/07/19 03:55 White Blood Count 6.8 x10^3/uL (4.0-11.0) Red Blood Count 3.78 x10^6/uL (3.50-5.40) Hemoglobin 11.3 g/dL (12.0-15.5) Hematocrit 33.7 % (36.0-47.0) Mean Corpuscular Volume 89 fL (79-100) Mean Corpuscular Hemoglobin 30 pg (25-35) Mean Corpuscular Hemoglobin Concent 34 g/dL (31-37) Red Cell Distribution Width 16.5 % (11.5-14.5) Platelet Count 96 x10^3/uL (140-400) Neutrophils (%) (Auto) 69 % (31-73) Lymphocytes (%) (Auto) 17 % (24-48) Monocytes (%) (Auto) 8 % (0-9) Eosinophils (%) (Auto) 6 % (0-3) Basophils (%) (Auto) 0 % (0-3) Neutrophils # (Auto) 4.7 x10^3/uL (1.8-7.7) Lymphocytes # (Auto) 1.2 x10^3/uL (1.0-4.8) Monocytes # (Auto) 0.5 x10^3/uL (0.0-1.1) Eosinophils # (Auto) 0.4 x10^3/uL (0.0-0.7) Basophils # (Auto) 0.0 x10^3/uL (0.0-0.2) Segmented Neutrophils % 63 % (35-66) Band Neutrophils % 7 % (0-9) Lymphocytes % 19 % (24-48) Monocytes % 5 % (0-10) Eosinophils % 6 % (0-5) Platelet Estimate Decreased (ADEQUATE) Giant Platelets Few Polychromasia Slight Anisocytosis Slight Prothrombin Time 15.2 SEC (11.7-14.0) Prothromb Time International Ratio 1.2 (0.8-1.1) Activated Partial Thromboplast Time 25 SEC (24-38) Sodium Level 139 mmol/L (136-145) Potassium Level 3.2 mmol/L (3.5-5.1) Chloride Level 102 mmol/L (98-107) Carbon Dioxide Level 28 mmol/L (21-32) Anion Gap 9 (6-14) Blood Urea Nitrogen 7 mg/dL (7-20) Creatinine 0.9 mg/dL (0.6-1.0) Estimated GFR (Cockcroft-Gault) 66.5 BUN/Creatinine Ratio 8 (6-20) Glucose Level 104 mg/dL (70-99) Lactic Acid Level 1.9 mmol/L (0.4-2.0) Calcium Level 7.7 mg/dL (8.5-10.1) Magnesium Level 2.1 mg/dL (1.8-2.4) Total Bilirubin 0.6 mg/dL (0.2-1.0) Aspartate Amino Transf (AST/SGOT) 23 U/L (15-37) Alanine Aminotransferase (ALT/SGPT) 35 U/L (14-59) Alkaline Phosphatase 286 U/L (46-116) Creatine Kinase 87 U/L (26-192) Creatine Kinase MB (Mass) 1.0 ng/mL (0.0-3.6) Creatine Kinase MB Relative Index 1.1 % (0-4) Troponin I Quantitative < 0.017 ng/mL (0.000-0.055) < 0.017 ng/mL (0.000-0.055) < 0.017 ng/mL (0.000-0.055) Total Protein 5.7 g/dL (6.4-8.2) Albumin 2.4 g/dL (3.4-5.0) Albumin/Globulin Ratio 0.7 (1.0-1.7) Lipase 58 U/L (73-393) Heparin Anti-Xa Act, Unfractionated > 1.10 IU/mL (0.30-0.70) Laboratory Tests Test 05/06/19 19:46 05/06/19 23:50 05/07/19 03:55 White Blood Count 6.8 x10^3/uL (4.0-11.0) Red Blood Count 3.78 x10^6/uL (3.50-5.40) Hemoglobin 11.3 g/dL (12.0-15.5) Hematocrit 33.7 % (36.0-47.0) Mean Corpuscular Volume 89 fL (79-100) Mean Corpuscular Hemoglobin 30 pg (25-35) Mean Corpuscular Hemoglobin Concent 34 g/dL (31-37) Red Cell Distribution Width 16.5 % (11.5-14.5) Platelet Count 96 x10^3/uL (140-400) Neutrophils (%) (Auto) 69 % (31-73) Lymphocytes (%) (Auto) 17 % (24-48) Monocytes (%) (Auto) 8 % (0-9) Eosinophils (%) (Auto) 6 % (0-3) Basophils (%) (Auto) 0 % (0-3) Neutrophils # (Auto) 4.7 x10^3/uL (1.8-7.7) Lymphocytes # (Auto) 1.2 x10^3/uL (1.0-4.8) Monocytes # (Auto) 0.5 x10^3/uL (0.0-1.1) Eosinophils # (Auto) 0.4 x10^3/uL (0.0-0.7) Basophils # (Auto) 0.0 x10^3/uL (0.0-0.2) Segmented Neutrophils % 63 % (35-66) Band Neutrophils % 7 % (0-9) Lymphocytes % 19 % (24-48) Monocytes % 5 % (0-10) Eosinophils % 6 % (0-5) Platelet Estimate Decreased (ADEQUATE) Giant Platelets Few Polychromasia Slight Anisocytosis Slight Prothrombin Time 15.2 SEC (11.7-14.0) Prothromb Time International Ratio 1.2 (0.8-1.1) Activated Partial Thromboplast Time 25 SEC (24-38) Sodium Level 139 mmol/L (136-145) Potassium Level 3.2 mmol/L (3.5-5.1) Chloride Level 102 mmol/L (98-107) Carbon Dioxide Level 28 mmol/L (21-32) Anion Gap 9 (6-14) Blood Urea Nitrogen 7 mg/dL (7-20) Creatinine 0.9 mg/dL (0.6-1.0) Estimated GFR (Cockcroft-Gault) 66.5 BUN/Creatinine Ratio 8 (6-20) Glucose Level 104 mg/dL (70-99) Lactic Acid Level 1.9 mmol/L (0.4-2.0) Calcium Level 7.7 mg/dL (8.5-10.1) Magnesium Level 2.1 mg/dL (1.8-2.4) Total Bilirubin 0.6 mg/dL (0.2-1.0) Aspartate Amino Transf (AST/SGOT) 23 U/L (15-37) Alanine Aminotransferase (ALT/SGPT) 35 U/L (14-59) Alkaline Phosphatase 286 U/L (46-116) Creatine Kinase 87 U/L (26-192) Creatine Kinase MB (Mass) 1.0 ng/mL (0.0-3.6) Creatine Kinase MB Relative Index 1.1 % (0-4) Troponin I Quantitative < 0.017 ng/mL (0.000-0.055) < 0.017 ng/mL (0.000-0.055) < 0.017 ng/mL (0.000-0.055) Total Protein 5.7 g/dL (6.4-8.2) Albumin 2.4 g/dL (3.4-5.0) Albumin/Globulin Ratio 0.7 (1.0-1.7) Lipase 58 U/L (73-393) Heparin Anti-Xa Act, Unfractionated > 1.10 IU/mL (0.30-0.70) Images Images CT head and cervical spine without contrast INDICATION: Pain TECHNIQUE: Sequential axial images through the head and cervical spine were obtained without the administration of IV contrast. Comparisons: None FINDINGS: Head: Somewhat hyperdense appearance of the right sigmoid sinus. No focal parenchymal lesion or hemorrhage is identified. There is no midline shift or sulcal effacement. No acute vascular territory infarction is identified. Talavera-white distinction is preserved. The ventricular system is within normal limits without compression hydrocephalus. The basal cisterns are well maintained. The visualized portions of the paranasal sinuses and mastoid air cells are well-pneumatized. No acute fractures. Cervical spine: There is straightening of the cervical spine which may be positional. Vertebral body heights are well-maintained. Scattered heterogenous sclerotic appearance throughout the cervical vertebral bodies. Fracture to the cervical spine is not identified. No significant spondylotic change in the cervical spine. There is patchy airspace disease at the right apex. There is a moderate-sized partially visualized left pleural effusion. Expansion of the right internal jugular vein. IMPRESSION: 1. Hyperdense appearance of the right sigmoid sinus, strongly favored to represent dural venous thrombosis. 2. Expanded appearance of the right internal jugular vein which could reflect thrombus. Ultrasound could better evaluate. 3. Heterogenous sclerotic appearance of the osseous structures. Correlate with cancer history for osseous metastatic disease. 4. Partially visualized left pleural effusion. Assessment/Plan Assessment/Plan Impression: Right internal jugular and probable sigmoid sinus thrombosis. Headache and neck pain from these are better. Recommendations: Await MR venogram Continue heparin for now Fully discuss with patient and her . Thank you for letting me help with the patient's care. TETO LEVINE MD May 07, 2019 10:54
[2019-05-07] MEDS: TOPIRAMATE 100 MG TABLET. PO SCH ×2 (11:04→21:12)
[2019-05-07] MEDS: VENLAFAXINE XR 37.5 MG CAP.ER.24H. PO SCH (11:05)
[2019-05-07] MEDS ORDERED: POTASSIUM CHLORIDE 20 MEQ TABLET.ER. PO ONE (11:45)
[2019-05-07] MEDS: IPRATRPIUM/ALBUTEROL 0.5/2.5MG 3 ML NEBU. NEB SCH ×3 (12:16→19:26)
[2019-05-07] MEDS: BUDESONIDE 0.5 MG/2 ML NEBU. NEB SCH ×2 (12:16→19:26)
[2019-05-07] MEDS: oxyCODONE ER 10 MG TAB.ER.12H PO SCH ×2 (12:46→21:12)
[2019-05-07] MEDS: ALPRAZolam 0.5 MG TABLET PO PRN ×2 (13:45→21:13)
--- NOTE | 2019-05-07 14:55 | NUR ---
SS following for discharge planning. SS reviewed pt chart. Pt is from home with spouse and is currently requiring oxygen. SS will continue to follow for discharge planning.
[2019-05-07] MEDS: GABAPENTIN 300 MG CAPSULE. PO SCH ×2 (15:25→21:13)
--- NOTE | 2019-05-07 15:34 | RAD ---
MR venogram of the head History: Right sinus venous thrombosis Technique: MR venography was performed of the head. Comparison: February 27, 2019 MRI brain exam Findings: Only minimal flow related enhancement is seen of the small caliber right proximal transverse venous sinus, no demonstrable flow related enhancement of the right jugular bulb or sigmoid sinus. There is visualization of segments of the superior sagittal sinus, cannot exclude nonocclusive linear filling defect near the vertex on this exam. There is visualization of left transverse and sigmoid sinuses and left jugular bulb with some areas of decreased flow-related enhancement centrally possibly due to flow artifact although much smaller caliber of the more distal left transverse venous sinus. There is visualization of segments of the internal cerebral veins and straight sinus. Impression: 1. Right internal jugular bulb and right sigmoid sinus as well as distal right transverse sinus are not visualized and may be occluded or aplastic. Nonocclusive filling defect/thrombus of the superior sagittal sinus near the vertex is not excluded by this exam. There is a small caliber of the more distal left transverse sinus although may be on a developmental basis. Potentially CT venography could be beneficial to better assess for true filling defects in these regions. Electronically signed by: Bassem Valente MD (05/07/2019 3:31 PM) [id number]
--- NOTE | 2019-05-07 16:46 | RAD ---
EXAM: Bilateral lower extremity venous Doppler. HISTORY: Bilateral lower extremity pain/swelling. COMPARISON: None. FINDINGS: Grayscale and Doppler analysis of the both lower extremity deep venous systems was performed with graded compression and augmentation. The common femoral, greater saphenous, superficial femoral, popliteal and calf veins were assessed. There is no evidence of deep venous thrombosis. IMPRESSION: 1. No evidence of deep venous thrombosis. Electronically signed by: Dulce Krause MD (05/07/2019 4:43 PM) [facility]
[2019-05-07] MEDS: CARVEDILOL 6.25 MG TABLET. PO SCH (17:55)
[2019-05-07] MEDS: HEPARIN 25,000UTS/500ML PREMIX 500 ML IV PRN (20:12)
[2019-05-07] MEDS ORDERED: NON FORMULARY ITEM (Fluticasone/Salmeterol (Advair 250-50 Diskus) 1 INH) IH SCH (21:00)
[2019-05-07] MEDS: FAMOTIDINE 20 MG TABLET. PO SCH (21:12)
[2019-05-07] MEDS: MONTELUKAST SODIUM 10 MG TABLET. PO SCH (21:12)
[2019-05-07] MEDS: CYCLOBENZAPRINE 10 MG TABLET. PO PRN (21:12)
[2019-05-07] MEDS: ATORVASTATIN CALCIUM 20 MG TABLET PO SCH (21:13)
[2019-05-08] VITALS (24 sets, daily range): BP systolic 80–138; BP diastolic 49–89
--- NOTE | 2019-05-08 01:54 | CONS ---
DATE OF CONSULTATION: 05/07/2019 MEDICAL ONCOLOGY CONSULTATION REPORT REQUESTING PHYSICIAN: Dr. Tirso García. REASON FOR CONSULTATION: Stage 4 breast cancer, now admitted with DVT and involving the right jugular vein and sigmoid sinus thrombosis. HISTORY OF PRESENT ILLNESS: The patient is a 49-year-old female, who was diagnosed with invasive ductal carcinoma of the left breast on 08/12/2017, triple negative. She underwent left breast lumpectomy and sentinel-lymph node biopsy on 08/25/2017, which revealed a stage 2A breast cancer. She underwent bilateral mastectomy on 10/20/2017. She received chemotherapy with Adriamycin and Cytoxan for 4 cycles followed by Taxol for 4 cycles. PET scan on 02/22/2019, revealed hilar and mediastinal lymphadenopathy and sclerotic lesions throughout the bones suggestive of metastatic disease. Biopsy of the pelvic bone lesion on 03/06/2019 revealed poorly differentiated metastatic adenocarcinoma. She was started on palliative chemotherapy with Xeloda on 04/13/2019. She also had malignant pleural effusion requiring left-sided thoracentesis on 04/16/2019. She is tolerating the chemo very well. She noticed right-sided neck pain and worsening headache that prompted her to go to the hospital at [facility] Emergency Room on 05/06/2019. CT scan of the head and cervical spine on 05/06/2019, revealed dural venous thrombosis involving the right sigmoid sinus. Possible right jugular vein DVT. Bone metastasis and left pleural effusion was noted. She underwent upper extremity ultrasound on 05/06/2019, which revealed complete thrombosis of the right internal jugular vein. She was admitted to [facility] and started on anticoagulation with IV heparin and Neurology consult was also obtained. PAST MEDICAL HISTORY: Cervix cancer, migraine headaches, hypertension, heart disease, hysterectomy and sinus surgery. FAMILY HISTORY: Positive for lung cancer. SOCIAL HISTORY: She is . She has a history of cigarette smoking. REVIEW OF SYSTEMS: A 12-point review of system was performed. Pertinent positives are mentioned in the history of present illness. Rest of the system review is negative. PHYSICAL EXAMINATION: GENERAL APPEARANCE: The patient is a 49-year-old female who is in no acute cardiorespiratory distress. VITAL SIGNS: Blood pressure 97/74, temperature 98.1, heart rate 105 and respiratory rate 18. HEENT: Head atraumatic, normocephalic. EYES: No icterus. NECK: Supple. CHEST: Bilaterally symmetrical. HEART: S1, S2 normal. ABDOMEN: Soft, nontender. CENTRAL NERVOUS SYSTEM: No focal deficits. LYMPHATICS: No lymphadenopathy. SKIN: No rashes. MUSCULOSKELETAL: She has pedal edema. LABORATORY DATA: WBC of 6.8, hemoglobin 11.3 and platelet count 96. Creatinine of 0.9. IMPRESSION AND PLAN: 1. Stage 4 breast cancer with evidence of left-sided malignant pleural effusion, bone metastasis and liver metastasis and scattered pulmonary nodules, which may or may not be metastasis. She was started on palliative chemotherapy with Xeloda 2000 mg twice a day for 14 days on and 1 week off from 04/13/2019. She was started on cycle #2 on 05/04/2019. I have advised her to resume Xeloda once she has the medications obtained from home. 2. 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 I agreed to proceed with anticoagulation with heparin. This can be switched to one of the oral anticoagulants at the time of discharge. I agree to consult Neurology and I appreciate Neurology evaluation and consultation. 3. Bone metastasis. Continue supportive care. 4. Left-sided malignant pleural effusion status post thoracentesis on 04/16/2019. Continue to monitor. 5. Liver metastasis noted on CT scan of the chest, abdomen, and pelvis on 04/05/2019. JEREMY MELO MD DR: ABIGAIL/manjit JOB#: [id number] / [id number]
[2019-05-08 05:57] LABS: BASO % 0 % (0-3); EOS # 0.3 x10^3/uL (0.0-0.7); EOS % 3 % (0-3); HEMATOCRIT 31.6 % (36.0-47.0); HEMOGLOBIN 10.5 g/dL (12.0-15.5); LYMPH # 1.7 x10^3/uL (1.0-4.8); LYMPH % 20 % (24-48); MEAN CORPUSCULAR HEMOGLOBIN 30 pg (25-35); MEAN CORPUSCULAR HGB CONC 33 g/dL (31-37); MEAN CORPUSCULAR VOLUME 90 fL (79-100); MONO # 0.6 x10^3/uL (0.0-1.1); MONO % 7 % (0-9); NEUT % 70 % (31-73); PLATELET COUNT 107 x10^3/uL (140-400); RED BLOOD COUNT 3.51 x10^6/uL (3.50-5.40); RED CELL DISTRIBUTION WIDTH 16.6 % (11.5-14.5); WHITE BLOOD COUNT 8.5 x10^3/uL (4.0-11.0)
[2019-05-08 06:29] LABS: CALCIUM 7.6 mg/dL (8.5-10.1); CREATININE 0.7 mg/dL (0.6-1.0); GFR 88.9; POTASSIUM 3.6 mmol/L (3.5-5.1)
[2019-05-08] MEDS: oxyCODONE IR 5 MG TABLET PO PRN ×3 (08:00→22:00)
[2019-05-08] MEDS ORDERED: POTASSIUM CHLORIDE 20 MEQ TABLET.ER. PO ONE (08:00)
--- NOTE | 2019-05-08 08:00 | PDOC ---
PROGRESS NOTES Chief Complaint Chief Complaint A/P: Hyperdense appearance of the right sigmoid sinus, strongly favored to represent dural venous thrombosis - confirmatory MRV given her symptoms. Cont anticoagulat ion for now. Given interactions with warfarin and xeloda, will opt to give eliquis Anemia - Likely related to active cancer, will monitor Hypoxic respiratory failure - possibly related to pleural effusion. Breath sounds absent on left Hypotension - will monitor Hypokalemia - replaced oral, will monitor Metastatic breast cancer - triple negative, has an overall poor prognosis and lawrence s had a bad year, likely her clot is related to active malignancy. Will consult heme/onc for advice on both. Expanded appearance of the right internal jugular vein which could reflect thrombus. Ultrasound confirmed this. Continue anticoagulation Heterogenous sclerotic appearance of the osseous structures. Correlate with cancer history for osseous metastatic disease. Left pleural effusion - this is recurrent, had a thoracentesis previously this month. Not clear if it was malignant. Anxiety with depression - will cont meds Asthma - will cont inhalers Smoker - nicotine patch FEN - General diet PPX - heparin --> Eliquis FULL CODE Dispo - ICU for thrombus, will Cont ICU for now History of Present Illness History of Present Illness Ms Rausch is a 49-year-old female with past medical history of breast cancer with metastasis to bone and liver, asthma, migraines, smoker who presents with 2-3 day history of right neck pain, headache, facial swelling and numbness, and decreased hearing on right side. Recently seen by Dr. Garcia (oncology) on Tuesday for symptoms and treated for muscle tension. She was found with concerning CT head for right venous sinus thrombosis and found with complete left jugular occlusion on neck ultrasound, started on heparin GTT and admitted for further care. MRV confirmed likely sinus thrombosis. Her symptoms improved with heparin GTT. Still very dizzy and lightheaded. Still on NCO2. D/w heme/onc that coumadin would interfere with her treatment regimen and will opt for initiating eliquis today. Plan: Cont ICU Consult pulm for hypoxia, decreased left sided breath sounds Transition to eliquis 10mg BID for 7 days, then 5mg BID Vitals Vitals Vital Signs Date Time Temp Pulse Resp B/P (MAP) Pulse Ox O2 Delivery O2 Flow Rate FiO2 05/08/19 07:00 92 16 80/60 (67) 93 Nasal Cannula 2.0 05/08/19 04:00 98.0 98.0 Physical Exam General: Alert, Oriented X3, Cooperative, No acute distress Heart: Regular rate, Normal S1, Normal S2 Lungs: Crackles, Other Abdomen: Normal bowel sounds, Soft, No tenderness, No hepatosplenomegaly, No masses Extremities: No clubbing, No cyanosis, No edema, Normal pulses, No tenderness/swelling Skin: No rashes, No breakdown, No significant lesion Labs LABS Laboratory Tests Test 05/07/19 14:50 05/07/19 20:45 05/08/19 05:00 Heparin Anti-Xa Act, Unfractionated 0.45 IU/mL (0.30-0.70) 0.48 IU/mL (0.30-0.70) 0.67 IU/mL (0.30-0.70) Potassium Level 3.4 mmol/L (3.5-5.1) 3.6 mmol/L (3.5-5.1) White Blood Count 8.5 x10^3/uL (4.0-11.0) Red Blood Count 3.51 x10^6/uL (3.50-5.40) Hemoglobin 10.5 g/dL (12.0-15.5) Hematocrit 31.6 % (36.0-47.0) Mean Corpuscular Volume 90 fL (79-100) Mean Corpuscular Hemoglobin 30 pg (25-35) Mean Corpuscular Hemoglobin Concent 33 g/dL (31-37) Red Cell Distribution Width 16.6 % (11.5-14.5) Platelet Count 107 x10^3/uL (140-400) Neutrophils (%) (Auto) 70 % (31-73) Lymphocytes (%) (Auto) 20 % (24-48) Monocytes (%) (Auto) 7 % (0-9) Eosinophils (%) (Auto) 3 % (0-3) Basophils (%) (Auto) 0 % (0-3) Neutrophils # (Auto) 6.0 x10^3/uL (1.8-7.7) Lymphocytes # (Auto) 1.7 x10^3/uL (1.0-4.8) Monocytes # (Auto) 0.6 x10^3/uL (0.0-1.1) Eosinophils # (Auto) 0.3 x10^3/uL (0.0-0.7) Basophils # (Auto) 0.0 x10^3/uL (0.0-0.2) Sodium Level 141 mmol/L (136-145) Chloride Level 106 mmol/L (98-107) Carbon Dioxide Level 27 mmol/L (21-32) Anion Gap 8 (6-14) Blood Urea Nitrogen 7 mg/dL (7-20) Creatinine 0.7 mg/dL (0.6-1.0) Estimated GFR (Cockcroft-Gault) 88.9 Glucose Level 94 mg/dL (70-99) Calcium Level 7.6 mg/dL (8.5-10.1) Review of Systems Review of Systems [With regard to her breast cancer she had initial pathologic stage 2 (T2 N0 (IM+) M0), grade 3 triple negative adenocarcinoma of left breast per biopsy in 08/2017 followed by lumpectomy and axillary lymph node sampling in 08/2017. She ultimately underwent bilateral completion mastectomies in 10/2017. 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 She had 4 cycles of adjuvant chemotherapy with Adriamycin and Cytoxan, followed by 4 cycles of Taxol. She had significant tumor size involving the left primary and very close, less than 1 mm, margin involving the right primary site of disease. She received bilateral chest wall radiation to 48 Gy, completed in 04/2018. She now has documented biopsy proven osseous metastatic disease biopsied in 02/2019. She had previous significant headaches and underwent MRI imaging of the head on 02/28/2019, which revealed no occult intracranial metastatic disease. Previous PET CT scan on 02/22/2019 revealed hypermetabolic bilateral hilar mediastinal adenopathy, new left pleural effusion with no uptake, 8 mm lingular nodule and multiple sclerotic lesions throughout the axial skeleton with uptake compatible with osseous metastatic disease. 03/06/2019, she underwent biopsy of the right iliac bone, which confirmed adenocarcinoma. She also has liver and lung and associated pleural effusion, and just underwent therapeutic thoracentesis on 04/16/2019 with removal of 1.7 liters. Was started on Xeloda on 04/13/2019, as well as Xgeva.] Assessment and Plan Assessmemt and Plan Problems Medical Problems: (1) HX: breast cancer Status: Acute (2) Hypokalemia Status: Acute (3) Internal jugular vein thrombosis Status: Acute Comment Review of Relevant I have reviewed the following items danya (where applicable) has been applied. Labs Laboratory Tests Test 05/06/19 19:46 05/06/19 23:50 05/07/19 03:55 05/07/19 14:50 White Blood Count 6.8 x10^3/uL (4.0-11.0) Red Blood Count 3.78 x10^6/uL (3.50-5.40) Hemoglobin 11.3 g/dL (12.0-15.5) Hematocrit 33.7 % (36.0-47.0) Mean Corpuscular Volume 89 fL (79-100) Mean Corpuscular Hemoglobin 30 pg (25-35) Mean Corpuscular Hemoglobin Concent 34 g/dL (31-37) Red Cell Distribution Width 16.5 % (11.5-14.5) Platelet Count 96 x10^3/uL (140-400) Neutrophils (%) (Auto) 69 % (31-73) Lymphocytes (%) (Auto) 17 % (24-48) Monocytes (%) (Auto) 8 % (0-9) Eosinophils (%) (Auto) 6 % (0-3) Basophils (%) (Auto) 0 % (0-3) Neutrophils # (Auto) 4.7 x10^3/uL (1.8-7.7) Lymphocytes # (Auto) 1.2 x10^3/uL (1.0-4.8) Monocytes # (Auto) 0.5 x10^3/uL (0.0-1.1) Eosinophils # (Auto) 0.4 x10^3/uL (0.0-0.7) Basophils # (Auto) 0.0 x10^3/uL (0.0-0.2) Segmented Neutrophils % 63 % (35-66) Band Neutrophils % 7 % (0-9) Lymphocytes % 19 % (24-48) Monocytes % 5 % (0-10) Eosinophils % 6 % (0-5) Platelet Estimate Decreased (ADEQUATE) Giant Platelets Few Polychromasia Slight Anisocytosis Slight Prothrombin Time 15.2 SEC (11.7-14.0) Prothromb Time International Ratio 1.2 (0.8-1.1) Activated Partial Thromboplast Time 25 SEC (24-38) Sodium Level 139 mmol/L (136-145) Potassium Level 3.2 mmol/L (3.5-5.1) Chloride Level 102 mmol/L (98-107) Carbon Dioxide Level 28 mmol/L (21-32) Anion Gap 9 (6-14) Blood Urea Nitrogen 7 mg/dL (7-20) Creatinine 0.9 mg/dL (0.6-1.0) Estimated GFR (Cockcroft-Gault) 66.5 BUN/Creatinine Ratio 8 (6-20) Glucose Level 104 mg/dL (70-99) Lactic Acid Level 1.9 mmol/L (0.4-2.0) Calcium Level 7.7 mg/dL (8.5-10.1) Magnesium Level 2.1 mg/dL (1.8-2.4) Total Bilirubin 0.6 mg/dL (0.2-1.0) Aspartate Amino Transf (AST/SGOT) 23 U/L (15-37) Alanine Aminotransferase (ALT/SGPT) 35 U/L (14-59) Alkaline Phosphatase 286 U/L (46-116) Creatine Kinase 87 U/L (26-192) Creatine Kinase MB (Mass) 1.0 ng/mL (0.0-3.6) Creatine Kinase MB Relative Index 1.1 % (0-4) Troponin I Quantitative < 0.017 ng/mL (0.000-0.055) < 0.017 ng/mL (0.000-0.055) < 0.017 ng/mL (0.000-0.055) Total Protein 5.7 g/dL (6.4-8.2) Albumin 2.4 g/dL (3.4-5.0) Albumin/Globulin Ratio 0.7 (1.0-1.7) Lipase 58 U/L (73-393) Heparin Anti-Xa Act, Unfractionated > 1.10 IU/mL (0.30-0.70) 0.45 IU/mL (0.30-0.70) Test 05/07/19 20:45 05/08/19 05:00 Heparin Anti-Xa Act, Unfractionated 0.48 IU/mL (0.30-0.70) 0.67 IU/mL (0.30-0.70) Potassium Level 3.4 mmol/L (3.5-5.1) 3.6 mmol/L (3.5-5.1) White Blood Count 8.5 x10^3/uL (4.0-11.0) Red Blood Count 3.51 x10^6/uL (3.50-5.40) Hemoglobin 10.5 g/dL (12.0-15.5) Hematocrit 31.6 % (36.0-47.0) Mean Corpuscular Volume 90 fL (79-100) Mean Corpuscular Hemoglobin 30 pg (25-35) Mean Corpuscular Hemoglobin Concent 33 g/dL (31-37) Red Cell Distribution Width 16.6 % (11.5-14.5) Platelet Count 107 x10^3/uL (140-400) Neutrophils (%) (Auto) 70 % (31-73) Lymphocytes (%) (Auto) 20 % (24-48) Monocytes (%) (Auto) 7 % (0-9) Eosinophils (%) (Auto) 3 % (0-3) Basophils (%) (Auto) 0 % (0-3) Neutrophils # (Auto) 6.0 x10^3/uL (1.8-7.7) Lymphocytes # (Auto) 1.7 x10^3/uL (1.0-4.8) Monocytes # (Auto) 0.6 x10^3/uL (0.0-1.1) Eosinophils # (Auto) 0.3 x10^3/uL (0.0-0.7) Basophils # (Auto) 0.0 x10^3/uL (0.0-0.2) Sodium Level 141 mmol/L (136-145) Chloride Level 106 mmol/L (98-107) Carbon Dioxide Level 27 mmol/L (21-32) Anion Gap 8 (6-14) Blood Urea Nitrogen 7 mg/dL (7-20) Creatinine 0.7 mg/dL (0.6-1.0) Estimated GFR (Cockcroft-Gault) 88.9 Glucose Level 94 mg/dL (70-99) Calcium Level 7.6 mg/dL (8.5-10.1) Laboratory Tests Test 05/07/19 14:50 05/07/19 20:45 05/08/19 05:00 Heparin Anti-Xa Act, Unfractionated 0.45 IU/mL (0.30-0.70) 0.48 IU/mL (0.30-0.70) 0.67 IU/mL (0.30-0.70) Potassium Level 3.4 mmol/L (3.5-5.1) 3.6 mmol/L (3.5-5.1) White Blood Count 8.5 x10^3/uL (4.0-11.0) Red Blood Count 3.51 x10^6/uL (3.50-5.40) Hemoglobin 10.5 g/dL (12.0-15.5) Hematocrit 31.6 % (36.0-47.0) Mean Corpuscular Volume 90 fL (79-100) Mean Corpuscular Hemoglobin 30 pg (25-35) Mean Corpuscular Hemoglobin Concent 33 g/dL (31-37) Red Cell Distribution Width 16.6 % (11.5-14.5) Platelet Count 107 x10^3/uL (140-400) Neutrophils (%) (Auto) 70 % (31-73) Lymphocytes (%) (Auto) 20 % (24-48) Monocytes (%) (Auto) 7 % (0-9) Eosinophils (%) (Auto) 3 % (0-3) Basophils (%) (Auto) 0 % (0-3) Neutrophils # (Auto) 6.0 x10^3/uL (1.8-7.7) Lymphocytes # (Auto) 1.7 x10^3/uL (1.0-4.8) Monocytes # (Auto) 0.6 x10^3/uL (0.0-1.1) Eosinophils # (Auto) 0.3 x10^3/uL (0.0-0.7) Basophils # (Auto) 0.0 x10^3/uL (0.0-0.2) Sodium Level 141 mmol/L (136-145) Chloride Level 106 mmol/L (98-107) Carbon Dioxide Level 27 mmol/L (21-32) Anion Gap 8 (6-14) Blood Urea Nitrogen 7 mg/dL (7-20) Creatinine 0.7 mg/dL (0.6-1.0) Estimated GFR (Cockcroft-Gault) 88.9 Glucose Level 94 mg/dL (70-99) Calcium Level 7.6 mg/dL (8.5-10.1) Medications Current Medications Sodium Chloride 1,000 ml @ 1,000 mls/hr 1X ONCE IV Last administered on 05/06/19 19:55; Start 05/06/19 at 19:00; Stop 05/06/19 at 19:59; Status DC Dexamethasone Sodium Phosphate (Decadron) 10 mg 1X ONCE IVP Last administered on 05/06/19 19:57; Start 05/06/19 at 19:30; Stop 05/06/19 at 19:38; Status DC Orphenadrine Citrate (Norflex) 60 mg 1X ONCE IV Last administered on 9at 19:57; Start 05/06/19 at 19:30; Stop 05/06/19 at 19:38; Status DC Ondansetron HCl (Zofran) 4 mg 1X ONCE IVP Last administered on 05/06/19 19:57; Start 05/06/19 at 19:30; Stop 05/06/19 at 19:38; Status DC Fentanyl Citrate (Fentanyl 2ml Vial) 50 mcg 1X ONCE IVP Last administered on 05/06/19 20:02; Start 05/06/19 at 19:30; Stop 05/06/19 at 19:38; Status DC Aspirin (Sumi Aspirin) 325 mg 1X ONCE PO Last administered on 05/06/19 20:37; Start 05/06/19 at 20:30; Stop 05/06/19 at 20:31; Status DC Heparin Sodium (Porcine) (Heparin Sodium) 6,900 unit 1X ONCE IV Last administered on 05/06/19at 21:36; Start 05/06/19 at 21:30; Stop 05/06/19 at 21:31; Status DC Heparin Sodium/ Dextrose 500 ml @ 0 mls/hr CONT PRN IV PER PROTOCOL Last admin istered on 05/07/19at 20:12; Start 05/06/19 at 21:00 Heparin Sodium (Porcine) (Heparin Sodium) 2,600 unit PRN Q6HRS PRN IV FOR UFH LEVEL LESS THAN 0.2; Start 05/06/19 at 21:00 Heparin Sodium (Porcine) (Heparin Sodium) 1,300 unit PRN Q6HRS PRN IV FOR UFH LEVEL 0.2 - 0.29; Start 05/06/19 at 21:00 Ondansetron HCl (Zofran) 4 mg PRN Q8HRS PRN IV NAUSEA/VOMITING 1ST CHOICE; Start 05/06/19 at 21:00; Stop 05/07/19 at 20:59; Status DC Fentanyl Citrate (Fentanyl 2ml Vial) 50 mcg PRN Q2HRS PRN IV SEVERE PAIN 7-10; Start 05/06/19 at 21:00 Iohexol (Omnipaque 350 Mg/ml) 100 ml 1X ONCE IV Last administered on 05/06/19at 21:39; Start 05/06/19 at 21:15; Stop 05/06/19 at 21:16; Status DC Info (Anti-Coagulation Monitoring By Pharmacy) 1 each PRN DAILY PRN MC SEE COMMENTS Last administered on 05/07/19at 12:32; Start 05/06/19 at 21:15 Info (CONTRAST GIVEN -- Rx MONITORING) 1 each PRN DAILY PRN MC SEE COMMENTS; Start 05/06/19 at 21:15; Stop 05/08/19 at 21:14 Albuterol Sulfate (Ventolin Neb Soln) 2.5 mg PRN Q6HRS PRN INH SHORTNESS OF BREATH; Start 05/07/19 at 09:45 Alprazolam (Xanax) 0.5 mg PRN BID PRN PO ANXIETY Last administered on 05/07/19at 21:13; Start 05/07/19 at 09:45 Atorvastatin Calcium (Lipitor) 20 mg QHS PO Last administered on 05/07/19at 21:13; Start 05/07/19 at 21:00 Carvedilol (Coreg) 6.25 mg BIDWMEALS PO Last administered on 05/07/19at 17:55; Start 05/07/19 at 17:00 Cyclobenzaprine HCl (Flexeril) 10 mg TID PRN PRN PO MUSCLE SPASMS Last administered on 05/07/19at 21:12; Start 05/07/19 at 09:45 Albuterol/ Ipratropium (Duoneb) 3 ml RTQID NEB Last administered on 05/07/19at 19:26; Start 05/07/19 at 13:00 Montelukast Sodium (Singulair) 10 mg HS PO Last administered on 05/07/19at 21:12; Start 05/07/19 at 21:00 Topiramate (Topamax) 200 mg BID PO Last administered on 05/07/19at 21:12; Start 05/07/19 at 10:00 Zolpidem Tartrate (Ambien) 5 mg PRN QHS PRN PO INSOMNIA Last administered on 05/07/19at 21:13; Start 05/07/19 at 09:45 Sumatriptan Succinate (Imitrex) 100 mg PRN Q2HR PRN PO MIGRAINE HEADACHE; Start 05/07/19 at 10:15 Famotidine (Pepcid) 20 mg BID PO Last administered on 05/07/19at 21:12; Start 05/07/19 at 21:00 Fluticasone Propionate (Flonase) 2 spray DAILY NS ; Start 05/08/19 at 09:00 Non-Formulary Medication (Fluticasone/ Salmeterol (Advair 250-50 Diskus)) 1 inh BID IH ; Start 05/07/19 at 21:00; Status UNV Gabapentin (Neurontin) 300 mg TID PO Last administered on 05/07/19at 21:13; Start 05/07/19 at 14:00 Cetirizine HCl (ZyrTEC) 10 mg DAILY PO ; Start 05/08/19 at 09:00 Oxycodone HCl (Roxicodone) 10 mg PRN Q6HRS PRN PO PAIN; Start 05/07/19 at 10:00 Oxycodone HCl (OxyCONTIN) 20 mg Q12HR PO Last administered on 05/07/19at 21:12; Start 05/07/19 at 10:00 Prochlorperazine Maleate (Compazine) 10 mg PRN Q6HRS PRN PO NAUSEA/VOMITING; Start 05/07/19 at 10:30 Venlafaxine HCl (Effexor Xr) 225 mg DAILY PO Last administered on 05/07/19at 11:05; Start 05/07/19 at 10:00 Nicotine (Nicoderm Cq 21mg) 1 patch PRN DAILY PRN TD SMOKING CESSATION; Start 05/08/19 at 09:00 Budesonide (Pulmicort) 0.5 mg RTBID NEB Last administered on 05/07/19at 19:26; Start 05/07/19 at 11:00 Potassium Chloride/Water 100 ml @ 100 mls/hr Q1H IV Last administered on 05/07/19at 11:04; Start 05/07/19 at 10:30; Stop 05/07/19 at 11:41; Status DC Potassium Chloride (Klor-Con) 40 meq 1X ONCE PO Last administered on 05/07/19at 11:51; Start 05/07/19 at 11:45; Stop 05/07/19 at 11:46; Status DC Active Scripts Active Ambien (Zolpidem Tartrate) 5 Mg Tablet 5 Mg PO PRN QHS PRN 30 Days [Nicotine 21MG] 1 PATCH Patch 1 Patch TD PRN DAILY PRN 30 Days Reported Oxycontin (Oxycodone HCl) 20 Mg Tab.er.12h 20 Mg PO BID Pepcid (Famotidine) 40 Mg Tablet 40 Mg PO HS Compazine (Prochlorperazine Maleate) 10 Mg Tablet 10 Mg PO Q6HRS Topiramate 100 Mg Tablet 2 Tab PO BID Venlafaxine Hcl Er (Venlafaxine Hcl) 225 Mg Tab.er.24 1 Tab PO DAILY Xanax (Alprazolam) 0.5 Mg Tablet 1 Tab PO PRN BID PRN Gabapentin 600 Mg Tablet 300 Mg PO TID Levocetirizine Dihydrochloride 5 Mg Tablet 5 Mg PO HS Carvedilol (Carvedilol) 6.25 Mg Tablet 6.25 Mg PO BIDWMEALS Oxycodone Hcl Immed.release (Oxycodone Hcl) 10 Mg Tablet 10 Mg PO Q6HRS PRN Relpax (Eletriptan Hbr) 40 Mg Tablet 40 Mg PO PRN PRN Flonase Allergy Relief (Fluticasone Propionate) 9.9 Ml Hernandez.susp 2 Sprays NS DAILY Duoneb 0.5-3(2.5) Mg/3 Ml (Albuterol/Ipratropium) 3 Ml Ampul.neb 3 Ml NEB QID Proair Hfa Inhaler (Albuterol Sulfate) 8.5 Gm Hfa.aer.ad 1 Puff INH PRN Q6HRS PRN Advair 250-50 Diskus (Fluticasone/Salmeterol) 1 Each Disk.w.dev 1 Inh IH BID Cyclobenzaprine Hcl 10 Mg Tablet 10 Mg PO TID PRN PRN Atorvastatin Calcium 40 Mg Tablet 20 Mg PO HS Singulair Tablet (Montelukast Sodium) 10 Mg Tablet 10 Mg PO HS Vitals/I & O Vital Sign - Last 24 Hours 05/07/19 05/07/19 05/07/19 05/07/19 08:00 08:00 09:00 10:00 Pulse 94 92 90 Resp 18 18 18 B/P (MAP) 98/74 (82) 100/63 (75) 92/69 (77) Pulse Ox 94 95 91 O2 Delivery Nasal Cannula Nasal Cannula Nasal Cannula Nasal Cannula O2 Flow Rate 2.0 2.0 2.0 2.0 05/07/19 05/07/19 05/07/19 05/07/19 11:00 12:00 12:00 12:17 Pulse 92 92 Resp 18 18 B/P (MAP) 99/67 (78) 99/73 (82) Pulse Ox 92 92 98 O2 Delivery Nasal Cannula Nasal Cannula Nasal Cannula Room Air O2 Flow Rate 2.0 2.0 2.0 2.0 05/07/19 05/07/19 05/07/19 05/07/19 13:00 15:00 16:00 16:00 Pulse 105 105 104 Resp 18 18 18 B/P (MAP) 97/74 (82) 105/75 (85) 114/77 (89) Pulse Ox 91 93 93 O2 Delivery Nasal Cannula Nasal Cannula Nasal Cannula Nasal Cannula O2 Flow Rate 2.0 2.0 2.0 2.0 05/07/19 05/07/19 05/07/19 05/07/19 17:00 17:00 17:52 17:55 Pulse 108 115 115 Resp 18 18 B/P (MAP) 107/67 (80) 104/68 (80) Pulse Ox 93 98 94 O2 Delivery Nasal Cannula Room Air Nasal Cannula O2 Flow Rate 2.0 2.0 2.0 05/07/19 05/07/19 05/07/19 05/07/19 19:00 19:27 20:00 20:00 Temp 98.4 98.4 Pulse 111 106 Resp 19 19 B/P (MAP) 99/69 (79) 99/67 (78) Pulse Ox 96 98 96 O2 Delivery Nasal Cannula Room Air Nasal Cannula Nasal Cannula O2 Flow Rate 2.0 2.0 2.0 2.0 05/07/19 05/07/19 05/07/19 05/07/19 21:00 21:12 22:00 23:00 Pulse 106 111 101 Resp 20 16 20 20 B/P (MAP) 87/63 (71) 83/58 (66) 91/63 (72) Pulse Ox 96 96 96 94 O2 Delivery Nasal Cannula Nasal Cannula Nasal Cannula Nasal Cannula O2 Flow Rate 2.0 2.0 2.0 2.0 05/07/19 05/08/19 05/08/19 05/08/19 23:59 00:00 01:00 01:12 Pulse 103 108 Resp 20 20 20 B/P (MAP) 83/60 (68) 112/69 (83) Pulse Ox 95 95 95 O2 Delivery Nasal Cannula Nasal Cannula Nasal Cannula Nasal Cannula O2 Flow Rate 2.0 2.0 2.0 2.0 05/08/19 05/08/19 05/08/19 05/08/19 02:00 03:00 04:00 04:00 Temp 98.0 98.0 Pulse 100 99 95 Resp 20 15 23 B/P (MAP) 91/67 (75) 81/49 (60) 102/70 (81) Pulse Ox 94 94 95 O2 Delivery Nasal Cannula Nasal Cannula Nasal Cannula Nasal Cannula O2 Flow Rate 2.0 2.0 2.0 2.0 05/08/19 05/08/19 05/08/19 05:00 06:00 07:00 Pulse 92 97 92 Resp 23 15 16 B/P (MAP) 113/75 (88) 82/63 (69) 80/60 (67) Pulse Ox 95 94 93 O2 Delivery Nasal Cannula Nasal Cannula Nasal Cannula O2 Flow Rate 2.0 2.0 2.0 Intake and Output 05/07/19 05/07/19 05/08/19 15:00 23:00 07:00 Intake Total 50 ml 560 ml 1096.5 ml Balance 50 ml 560 ml 1096.5 ml Nutrition Consultation Dietary Evaluation: Recommendations by RD: Increase Calorie Intake, Protein supplementation Comments: REC cardiac diet when able REC Ensure TID (vanilla w/breakfast and dinner, chocolate w/lunch) Expected Outcomes/Goals: PO intake to meet >75% est needs Interpretation of weight loss: >20% in 1 year Malnutrition Findings: Food and Nutrition Intake (Sev: <50% est energy req 5days Weight Status: Obese DEWAYNE GASPAR MD May 08, 2019 08:00
[2019-05-08] MEDS ORDERED: NICOTINE 21MG PATCH. TD PRN (09:00)
[2019-05-08] MEDS: BUDESONIDE 0.5 MG/2 ML NEBU. NEB SCH ×2 (09:07→19:37)
[2019-05-08] MEDS: IPRATRPIUM/ALBUTEROL 0.5/2.5MG 3 ML NEBU. NEB SCH ×4 (09:07→19:37)
--- NOTE | 2019-05-08 09:21 | PDOC ---
PROGRESS NOTES Subjective Subjective HPI - f/u of Stage 4 breast cancer ROS - has rt neck pains Objective Objective Vital Signs Date Time Temp Pulse Resp B/P (MAP) Pulse Ox O2 Delivery O2 Flow Rate FiO2 05/08/19 09:09 98 Nasal Cannula 2.0 05/08/19 08:00 97.6 95 16 99/62 (74) 97.6 Intake and Output 05/08/19 07:00 Intake Total 1706.5 ml Balance 1706.5 ml Intake Oral 1200 ml IV Total 506.5 ml # Voids 3 Physical Exam Heart: Normal S1, Normal S2 General: Alert, Oriented X3 Lungs: Clear to auscultation Neuro: Normal speech Psych/Mental Status: Mental status NL Assessment Assessment Problems Medical Problems: (1) HX: breast cancer Status: Acute (2) Hypokalemia Status: Acute (3) Internal jugular vein thrombosis Status: Acute IMPRESSION AND PLAN: 1. Stage 4 breast cancer with evidence of left-sided malignant pleural effusion, bone metastasis and liver metastasis and scattered pulmonary nodules, which may or may not be metastasis. She was started on palliative chemotherapy with Xeloda 2000 mg twice a day for 14 days on and 1 week off from 04/13/2019. She was started on cycle #2 on 05/04/2019. I have advised her to resume Xeloda once she has the medications obtained from home. 2. 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 I agreed to proceed with anticoagulation with heparin. I agree with Dr García to switch to Eliquis at the time of discharge. I d/w pt regarding choice of eliquis vs warfarin (warfarin has interaction with xeloda), reviewed risks and benefits and she prefers eliquis. I agree to consult Neurology and I appreciate Neurology evaluation and consultation. 3. Bone metastasis. Continue supportive care. 4. Left-sided malignant pleural effusion status post thoracentesis on 04/16/2019. Continue to monitor. 5. Liver metastasis noted on CT scan of the chest, abdomen, and pelvis on 04/05/2019. Comment Review of Relevant I have reviewed the following items danya (where applicable) has been applied. Labs Laboratory Tests Test 05/06/19 19:46 05/06/19 23:50 05/07/19 03:55 05/07/19 14:50 White Blood Count 6.8 x10^3/uL (4.0-11.0) Red Blood Count 3.78 x10^6/uL (3.50-5.40) Hemoglobin 11.3 g/dL (12.0-15.5) Hematocrit 33.7 % (36.0-47.0) Mean Corpuscular Volume 89 fL (79-100) Mean Corpuscular Hemoglobin 30 pg (25-35) Mean Corpuscular Hemoglobin Concent 34 g/dL (31-37) Red Cell Distribution Width 16.5 % (11.5-14.5) Platelet Count 96 x10^3/uL (140-400) Neutrophils (%) (Auto) 69 % (31-73) Lymphocytes (%) (Auto) 17 % (24-48) Monocytes (%) (Auto) 8 % (0-9) Eosinophils (%) (Auto) 6 % (0-3) Basophils (%) (Auto) 0 % (0-3) Neutrophils # (Auto) 4.7 x10^3/uL (1.8-7.7) Lymphocytes # (Auto) 1.2 x10^3/uL (1.0-4.8) Monocytes # (Auto) 0.5 x10^3/uL (0.0-1.1) Eosinophils # (Auto) 0.4 x10^3/uL (0.0-0.7) Basophils # (Auto) 0.0 x10^3/uL (0.0-0.2) Segmented Neutrophils % 63 % (35-66) Band Neutrophils % 7 % (0-9) Lymphocytes % 19 % (24-48) Monocytes % 5 % (0-10) Eosinophils % 6 % (0-5) Platelet Estimate Decreased (ADEQUATE) Giant Platelets Few Polychromasia Slight Anisocytosis Slight Prothrombin Time 15.2 SEC (11.7-14.0) Prothromb Time International Ratio 1.2 (0.8-1.1) Activated Partial Thromboplast Time 25 SEC (24-38) Sodium Level 139 mmol/L (136-145) Potassium Level 3.2 mmol/L (3.5-5.1) Chloride Level 102 mmol/L (98-107) Carbon Dioxide Level 28 mmol/L (21-32) Anion Gap 9 (6-14) Blood Urea Nitrogen 7 mg/dL (7-20) Creatinine 0.9 mg/dL (0.6-1.0) Estimated GFR (Cockcroft-Gault) 66.5 BUN/Creatinine Ratio 8 (6-20) Glucose Level 104 mg/dL (70-99) Lactic Acid Level 1.9 mmol/L (0.4-2.0) Calcium Level 7.7 mg/dL (8.5-10.1) Magnesium Level 2.1 mg/dL (1.8-2.4) Total Bilirubin 0.6 mg/dL (0.2-1.0) Aspartate Amino Transf (AST/SGOT) 23 U/L (15-37) Alanine Aminotransferase (ALT/SGPT) 35 U/L (14-59) Alkaline Phosphatase 286 U/L (46-116) Creatine Kinase 87 U/L (26-192) Creatine Kinase MB (Mass) 1.0 ng/mL (0.0-3.6) Creatine Kinase MB Relative Index 1.1 % (0-4) Troponin I Quantitative < 0.017 ng/mL (0.000-0.055) < 0.017 ng/mL (0.000-0.055) < 0.017 ng/mL (0.000-0.055) Total Protein 5.7 g/dL (6.4-8.2) Albumin 2.4 g/dL (3.4-5.0) Albumin/Globulin Ratio 0.7 (1.0-1.7) Lipase 58 U/L (73-393) Heparin Anti-Xa Act, Unfractionated > 1.10 IU/mL (0.30-0.70) 0.45 IU/mL (0.30-0.70) Test 05/07/19 20:45 05/08/19 05:00 Heparin Anti-Xa Act, Unfractionated 0.48 IU/mL (0.30-0.70) 0.67 IU/mL (0.30-0.70) Potassium Level 3.4 mmol/L (3.5-5.1) 3.6 mmol/L (3.5-5.1) White Blood Count 8.5 x10^3/uL (4.0-11.0) Red Blood Count 3.51 x10^6/uL (3.50-5.40) Hemoglobin 10.5 g/dL (12.0-15.5) Hematocrit 31.6 % (36.0-47.0) Mean Corpuscular Volume 90 fL (79-100) Mean Corpuscular Hemoglobin 30 pg (25-35) Mean Corpuscular Hemoglobin Concent 33 g/dL (31-37) Red Cell Distribution Width 16.6 % (11.5-14.5) Platelet Count 107 x10^3/uL (140-400) Neutrophils (%) (Auto) 70 % (31-73) Lymphocytes (%) (Auto) 20 % (24-48) Monocytes (%) (Auto) 7 % (0-9) Eosinophils (%) (Auto) 3 % (0-3) Basophils (%) (Auto) 0 % (0-3) Neutrophils # (Auto) 6.0 x10^3/uL (1.8-7.7) Lymphocytes # (Auto) 1.7 x10^3/uL (1.0-4.8) Monocytes # (Auto) 0.6 x10^3/uL (0.0-1.1) Eosinophils # (Auto) 0.3 x10^3/uL (0.0-0.7) Basophils # (Auto) 0.0 x10^3/uL (0.0-0.2) Sodium Level 141 mmol/L (136-145) Chloride Level 106 mmol/L (98-107) Carbon Dioxide Level 27 mmol/L (21-32) Anion Gap 8 (6-14) Blood Urea Nitrogen 7 mg/dL (7-20) Creatinine 0.7 mg/dL (0.6-1.0) Estimated GFR (Cockcroft-Gault) 88.9 Glucose Level 94 mg/dL (70-99) Calcium Level 7.6 mg/dL (8.5-10.1) Magnesium Level 2.5 mg/dL (1.8-2.4) Laboratory Tests Test 05/07/19 14:50 05/07/19 20:45 05/08/19 05:00 Heparin Anti-Xa Act, Unfractionated 0.45 IU/mL (0.30-0.70) 0.48 IU/mL (0.30-0.70) 0.67 IU/mL (0.30-0.70) Potassium Level 3.4 mmol/L (3.5-5.1) 3.6 mmol/L (3.5-5.1) White Blood Count 8.5 x10^3/uL (4.0-11.0) Red Blood Count 3.51 x10^6/uL (3.50-5.40) Hemoglobin 10.5 g/dL (12.0-15.5) Hematocrit 31.6 % (36.0-47.0) Mean Corpuscular Volume 90 fL (79-100) Mean Corpuscular Hemoglobin 30 pg (25-35) Mean Corpuscular Hemoglobin Concent 33 g/dL (31-37) Red Cell Distribution Width 16.6 % (11.5-14.5) Platelet Count 107 x10^3/uL (140-400) Neutrophils (%) (Auto) 70 % (31-73) Lymphocytes (%) (Auto) 20 % (24-48) Monocytes (%) (Auto) 7 % (0-9) Eosinophils (%) (Auto) 3 % (0-3) Basophils (%) (Auto) 0 % (0-3) Neutrophils # (Auto) 6.0 x10^3/uL (1.8-7.7) Lymphocytes # (Auto) 1.7 x10^3/uL (1.0-4.8) Monocytes # (Auto) 0.6 x10^3/uL (0.0-1.1) Eosinophils # (Auto) 0.3 x10^3/uL (0.0-0.7) Basophils # (Auto) 0.0 x10^3/uL (0.0-0.2) Sodium Level 141 mmol/L (136-145) Chloride Level 106 mmol/L (98-107) Carbon Dioxide Level 27 mmol/L (21-32) Anion Gap 8 (6-14) Blood Urea Nitrogen 7 mg/dL (7-20) Creatinine 0.7 mg/dL (0.6-1.0) Estimated GFR (Cockcroft-Gault) 88.9 Glucose Level 94 mg/dL (70-99) Calcium Level 7.6 mg/dL (8.5-10.1) Magnesium Level 2.5 mg/dL (1.8-2.4) Medications Current Medications Sodium Chloride 1,000 ml @ 1,000 mls/hr 1X ONCE IV Last administered on 05/06/19 19:55; Start 05/06/19 at 19:00; Stop 05/06/19 at 19:59; Status DC Dexamethasone Sodium Phosphate (Decadron) 10 mg 1X ONCE IVP Last administered on 05/06/19at 19:57; Start 05/06/19 at 19:30; Stop 05/06/19 at 19:38; Status DC Orphenadrine Citrate (Norflex) 60 mg 1X ONCE IV Last administered on 05/06/19at 19:57; Start 05/06/19 at 19:30; Stop 05/06/19 at 19:38; Status DC Ondansetron HCl (Zofran) 4 mg 1X ONCE IVP Last administered on 05/06/19 19:57; Start 05/06/19 at 19:30; Stop 05/06/19 at 19:38; Status DC Fentanyl Citrate (Fentanyl 2ml Vial) 50 mcg 1X ONCE IVP Last administered on 05/06/19at 20:02; Start 05/06/19 at 19:30; Stop 05/06/19 at 19:38; Status DC Aspirin (Sumi Aspirin) 325 mg 1X ONCE PO Last administered on 05/06/19at 20:37; Start 05/06/19 at 20:30; Stop 05/06/19 at 20:31; Status DC Heparin Sodium (Porcine) (Heparin Sodium) 6,900 unit 1X ONCE IV Last administered on 05/06/19at 21:36; Start 05/06/19 at 21:30; Stop 05/06/19 at 21:31; Status DC Heparin Sodium/ Dextrose 500 ml @ 0 mls/hr CONT PRN IV PER PROTOCOL Last administered on 05/07/19at 20:12; Start 05/06/19 at 21:00; Stop 05/08/19 at 08:30; Status DC Heparin Sodium (Porcine) (Heparin Sodium) 2,600 unit PRN Q6HRS PRN IV FOR UFH LEVEL LESS THAN 0.2; Start 05/06/19 at 21:00 Heparin Sodium (Porcine) (Heparin Sodium) 1,300 unit PRN Q6HRS PRN IV FOR UFH LEVEL 0.2 - 0.29; Start 05/06/19 at 21:00 Ondansetron HCl (Zofran) 4 mg PRN Q8HRS PRN IV NAUSEA/VOMITING 1ST CHOICE; Start 05/06/19 at 21:00; Stop 05/07/19 at 20:59; Status DC Fentanyl Citrate (Fentanyl 2ml Vial) 50 mcg PRN Q2HRS PRN IV SEVERE PAIN 7-10; Start 05/06/19 at 21:00 Iohexol (Omnipaque 350 Mg/ml) 100 ml 1X ONCE IV Last administered on 05/06/19at 21:39; Start 05/06/19 at 21:15; Stop 05/06/19 at 21:16; Status DC Info (Anti-Coagulation Monitoring By Pharmacy) 1 each PRN DAILY PRN MC SEE COMMENTS Last administered on 05/07/19at 12:32; Start 05/06/19 at 21:15 Info (CONTRAST GIVEN -- Rx MONITORING) 1 each PRN DAILY PRN MC SEE COMMENTS; Start 05/06/19 at 21:15; Stop 05/08/19 at 21:14 Albuterol Sulfate (Ventolin Neb Soln) 2.5 mg PRN Q6HRS PRN INH SHORTNESS OF BREATH; Start 05/07/19 at 09:45 Alprazolam (Xanax) 0.5 mg PRN BID PRN PO ANXIETY Last administered on 05/07/19at 21:13; Start 05/07/19 at 09:45 Atorvastatin Calcium (Lipitor) 20 mg QHS PO Last administered on 05/07/19 21:13; Start 05/07/19 at 21:00 Carvedilol (Coreg) 6.25 mg BIDWMEALS PO Last administered on 05/07/19at 17:55; Start 05/07/19 at 17:00 Cyclobenzaprine HCl (Flexeril) 10 mg TID PRN PRN PO MUSCLE SPASMS Last administered on 05/07/19 21:12; Start 05/07/19 at 09:45 Albuterol/ Ipratropium (Duoneb) 3 ml RTQID NEB Last administered on 05/08/19 09:07; Start 05/07/19 at 13:00 Montelukast Sodium (Singulair) 10 mg HS PO Last administered on 05/07/19at 21:12; Start 05/07/19 at 21:00 Topiramate (Topamax) 200 mg BID PO Last administered on 05/07/19at 21:12; Start 05/07/19 at 10:00 Zolpidem Tartrate (Ambien) 5 mg PRN QHS PRN PO INSOMNIA Last administered on 05/07/19at 21:13; Start 05/07/19 at 09:45 Sumatriptan Succinate (Imitrex) 100 mg PRN Q2HR PRN PO MIGRAINE HEADACHE; Start 05/07/19 at 10:15 Famotidine (Pepcid) 20 mg BID PO Last administered on 05/07/19at 21:12; Start 05/07/19 at 21:00 Fluticasone Propionate (Flonase) 2 spray DAILY NS ; Start 05/08/19 at 09:00 Non-Formulary Medication (Fluticasone/ Salmeterol (Advair 250-50 Diskus)) 1 inh BID IH ; Start 05/07/19 at 21:00; Status UNV Gabapentin (Neurontin) 300 mg TID PO Last administered on 05/07/19at 21:13; Start 05/07/19 at 14:00 Cetirizine HCl (ZyrTEC) 10 mg DAILY PO ; Start 05/08/19 at 09:00 Oxycodone HCl (Roxicodone) 10 mg PRN Q6HRS PRN PO PAIN; Start 05/07/19 at 10:00 Oxycodone HCl (OxyCONTIN) 20 mg Q12HR PO Last administered on 05/07/19at 21:12; Start 05/07/19 at 10:00 Prochlorperazine Maleate (Compazine) 10 mg PRN Q6HRS PRN PO NAUSEA/VOMITING; Start 05/07/19 at 10:30 Venlafaxine HCl (Effexor Xr) 225 mg DAILY PO Last administered on 05/07/19at 11:05; Start 05/07/19 at 10:00 Nicotine (Nicoderm Cq 21mg) 1 patch PRN DAILY PRN TD SMOKING CESSATION; Start 05/08/19 at 09:00 Budesonide (Pulmicort) 0.5 mg RTBID NEB Last administered on 05/08/19at 09:07; Start 05/07/19 at 11:00 Potassium Chloride/Water 100 ml @ 100 mls/hr Q1H IV Last administered on 05/07/19at 11:04; Start 05/07/19 at 10:30; Stop 05/07/19 at 11:41; Status DC Potassium Chloride (Klor-Con) 40 meq 1X ONCE PO Last administered on 05/07/19at 11:51; Start 05/07/19 at 11:45; Stop 05/07/19 at 11:46; Status DC Apixaban (Eliquis) 10 mg BID PO ; Start 05/08/19 at 10:30; Stop 05/14/19 at 21:01 Potassium Chloride (Klor-Con) 40 meq 1X ONCE PO ; Start 05/08/19 at 08:00; Stop 05/08/19 at 08:03; Status DC Apixaban (Eliquis) 5 mg BID PO ; Start 05/15/19 at 09:00 Active Scripts Active Ambien (Zolpidem Tartrate) 5 Mg Tablet 5 Mg PO PRN QHS PRN 30 Days [Nicotine 21MG] 1 PATCH Patch 1 Patch TD PRN DAILY PRN 30 Days Reported Oxycontin (Oxycodone HCl) 20 Mg Tab.er.12h 20 Mg PO BID Pepcid (Famotidine) 40 Mg Tablet 40 Mg PO HS Compazine (Prochlorperazine Maleate) 10 Mg Tablet 10 Mg PO Q6HRS Topiramate 100 Mg Tablet 2 Tab PO BID Venlafaxine Hcl Er (Venlafaxine Hcl) 225 Mg Tab.er.24 1 Tab PO DAILY Xanax (Alprazolam) 0.5 Mg Tablet 1 Tab PO PRN BID PRN Gabapentin 600 Mg Tablet 300 Mg PO TID Levocetirizine Dihydrochloride 5 Mg Tablet 5 Mg PO HS Carvedilol (Carvedilol) 6.25 Mg Tablet 6.25 Mg PO BIDWMEALS Oxycodone Hcl Immed.release (Oxycodone Hcl) 10 Mg Tablet 10 Mg PO Q6HRS PRN Relpax (Eletriptan Hbr) 40 Mg Tablet 40 Mg PO PRN PRN Flonase Allergy Relief (Fluticasone Propionate) 9.9 Ml [place].susp 2 Sprays NS DAILY Duoneb 0.5-3(2.5) Mg/3 Ml (Albuterol/Ipratropium) 3 Ml Ampul.neb 3 Ml NEB QID Proair Hfa Inhaler (Albuterol Sulfate) 8.5 Gm Hfa.aer.ad 1 Puff INH PRN Q6HRS PRN Advair 250-50 Diskus (Fluticasone/Salmeterol) 1 Each Disk.w.dev 1 Inh IH BID Cyclobenzaprine Hcl 10 Mg Tablet 10 Mg PO TID PRN PRN Atorvastatin Calcium 40 Mg Tablet 20 Mg PO HS Singulair Tablet (Montelukast Sodium) 10 Mg Tablet 10 Mg PO HS Vitals/I & O Vital Sign - Last 24 Hours 05/07/19 05/07/19 05/07/19 05/07/19 10:00 11:00 12:00 12:00 Pulse 90 92 92 Resp 18 18 18 B/P (MAP) 92/69 (77) 99/67 (78) 99/73 (82) Pulse Ox 91 92 92 O2 Delivery Nasal Cannula Nasal Cannula Nasal Cannula Nasal Cannula O2 Flow Rate 2.0 2.0 2.0 2.0 05/07/19 05/07/19 05/07/19 05/07/19 12:17 13:00 15:00 16:00 Pulse 105 105 104 Resp 18 18 18 B/P (MAP) 97/74 (82) 105/75 (85) 114/77 (89) Pulse Ox 98 91 93 93 O2 Delivery Room Air Nasal Cannula Nasal Cannula Nasal Cannula O2 Flow Rate 2.0 2.0 2.0 2.0 05/07/19 05/07/19 05/07/19 05/07/19 16:00 17:00 17:00 17:52 Pulse 108 115 Resp 18 18 B/P (MAP) 107/67 (80) 104/68 (80) Pulse Ox 93 98 94 O2 Delivery Nasal Cannula Nasal Cannula Room Air Nasal Cannula O2 Flow Rate 2.0 2.0 2.0 2.0 05/07/19 05/07/19 05/07/19 05/07/19 17:55 19:00 19:27 20:00 Pulse 115 111 Resp 19 B/P (MAP) 99/69 (79) Pulse Ox 96 98 O2 Delivery Nasal Cannula Room Air Nasal Cannula O2 Flow Rate 2.0 2.0 2.0 05/07/19 05/07/19 05/07/19 05/07/19 20:00 21:00 21:12 22:00 Temp 98.4 98.4 Pulse 106 106 111 Resp 19 20 16 20 B/P (MAP) 99/67 (78) 87/63 (71) 83/58 (66) Pulse Ox 96 96 96 96 O2 Delivery Nasal Cannula Nasal Cannula Nasal Cannula Nasal Cannula O2 Flow Rate 2.0 2.0 2.0 2.0 05/07/19 05/07/19 05/08/19 05/08/19 23:00 23:59 00:00 01:00 Pulse 101 103 108 Resp 20 20 20 B/P (MAP) 91/63 (72) 83/60 (68) 112/69 (83) Pulse Ox 94 95 95 O2 Delivery Nasal Cannula Nasal Cannula Nasal Cannula Nasal Cannula O2 Flow Rate 2.0 2.0 2.0 2.0 05/08/19 05/08/19 05/08/19 05/08/19 01:12 02:00 03:00 04:00 Temp 98.0 98.0 Pulse 100 99 95 Resp 20 20 15 23 B/P (MAP) 91/67 (75) 81/49 (60) 102/70 (81) Pulse Ox 95 94 94 95 O2 Delivery Nasal Cannula Nasal Cannula Nasal Cannula Nasal Cannula O2 Flow Rate 2.0 2.0 2.0 2.0 05/08/19 05/08/19 05/08/19 05/08/19 04:00 05:00 06:00 07:00 Pulse 92 97 92 Resp 23 15 16 B/P (MAP) 113/75 (88) 82/63 (69) 80/60 (67) Pulse Ox 95 94 93 O2 Delivery Nasal Cannula Nasal Cannula Nasal Cannula Nasal Cannula O2 Flow Rate 2.0 2.0 2.0 2.0 05/08/19 05/08/19 05/08/19 08:00 08:00 09:09 Temp 97.6 97.6 Pulse 95 Resp 16 B/P (MAP) 99/62 (74) Pulse Ox 93 98 O2 Delivery Nasal Cannula Nasal Cannula Nasal Cannula O2 Flow Rate 2.0 2.0 2.0 Intake and Output 05/07/19 05/07/19 05/08/19 15:00 23:00 07:00 Intake Total 50 ml 560 ml 1096.5 ml Balance 50 ml 560 ml 1096.5 ml Nutrition Consultation Dietary Evaluation: Recommendations by RD: Increase Calorie Intake, Protein supplementation Comments: REC cardiac diet when able REC Ensure TID (vanilla w/breakfast and dinner, chocolate w/lunch) Expected Outcomes/Goals: PO intake to meet >75% est needs Interpretation of weight loss: >20% in 1 year Malnutrition Findings: Food and Nutrition Intake (Sev: <50% est energy req 5days Weight Status: Obese JEREMY MELO MD May 08, 2019 09:21
[2019-05-08] MEDS: FAMOTIDINE 20 MG TABLET. PO SCH ×2 (09:32→19:57)
[2019-05-08] MEDS: TOPIRAMATE 100 MG TABLET. PO SCH ×2 (09:33→19:59)
[2019-05-08] MEDS: CETIRIZINE HCL 10 MG TABLET. PO SCH (09:33)
[2019-05-08] MEDS: oxyCODONE ER 10 MG TAB.ER.12H PO SCH ×2 (09:33→19:59)
[2019-05-08] MEDS: GABAPENTIN 300 MG CAPSULE. PO SCH ×3 (09:34→19:57)
[2019-05-08] MEDS: VENLAFAXINE XR 37.5 MG CAP.ER.24H. PO SCH (09:34)
[2019-05-08] MEDS: FLUTICASONE 50MCG/NASAL SPRAY 16GM BOTTLE. NS SCH (09:38)
[2019-05-08] MEDS: CARVEDILOL 6.25 MG TABLET. PO SCH ×2 (09:38→17:53)
[2019-05-08] MEDS ORDERED: APIXABAN 5 MG TABLET. PO SCH (10:30)
--- NOTE | 2019-05-08 11:24 | PDOC ---
PULMONARY PROGRESS NOTES Vitals Vital Signs Date Time Temp Pulse Resp B/P (MAP) Pulse Ox O2 Delivery O2 Flow Rate FiO2 05/08/19 10:00 94 17 111/69 (83) 95 Nasal Cannula 2.0 05/08/19 08:00 97.6 97.6 Lungs: Crackles, Other Labs Laboratory Tests Test 05/06/19 19:46 05/06/19 23:50 05/07/19 03:55 05/07/19 14:50 White Blood Count 6.8 x10^3/uL (4.0-11.0) Red Blood Count 3.78 x10^6/uL (3.50-5.40) Hemoglobin 11.3 g/dL (12.0-15.5) Hematocrit 33.7 % (36.0-47.0) Mean Corpuscular Volume 89 fL (79-100) Mean Corpuscular Hemoglobin 30 pg (25-35) Mean Corpuscular Hemoglobin Concent 34 g/dL (31-37) Red Cell Distribution Width 16.5 % (11.5-14.5) Platelet Count 96 x10^3/uL (140-400) Neutrophils (%) (Auto) 69 % (31-73) Lymphocytes (%) (Auto) 17 % (24-48) Monocytes (%) (Auto) 8 % (0-9) Eosinophils (%) (Auto) 6 % (0-3) Basophils (%) (Auto) 0 % (0-3) Neutrophils # (Auto) 4.7 x10^3/uL (1.8-7.7) Lymphocytes # (Auto) 1.2 x10^3/uL (1.0-4.8) Monocytes # (Auto) 0.5 x10^3/uL (0.0-1.1) Eosinophils # (Auto) 0.4 x10^3/uL (0.0-0.7) Basophils # (Auto) 0.0 x10^3/uL (0.0-0.2) Segmented Neutrophils % 63 % (35-66) Band Neutrophils % 7 % (0-9) Lymphocytes % 19 % (24-48) Monocytes % 5 % (0-10) Eosinophils % 6 % (0-5) Platelet Estimate Decreased (ADEQUATE) Giant Platelets Few Polychromasia Slight Anisocytosis Slight Prothrombin Time 15.2 SEC (11.7-14.0) Prothromb Time International Ratio 1.2 (0.8-1.1) Activated Partial Thromboplast Time 25 SEC (24-38) Sodium Level 139 mmol/L (136-145) Potassium Level 3.2 mmol/L (3.5-5.1) Chloride Level 102 mmol/L (98-107) Carbon Dioxide Level 28 mmol/L (21-32) Anion Gap 9 (6-14) Blood Urea Nitrogen 7 mg/dL (7-20) Creatinine 0.9 mg/dL (0.6-1.0) Estimated GFR (Cockcroft-Gault) 66.5 BUN/Creatinine Ratio 8 (6-20) Glucose Level 104 mg/dL (70-99) Lactic Acid Level 1.9 mmol/L (0.4-2.0) Calcium Level 7.7 mg/dL (8.5-10.1) Magnesium Level 2.1 mg/dL (1.8-2.4) Total Bilirubin 0.6 mg/dL (0.2-1.0) Aspartate Amino Transf (AST/SGOT) 23 U/L (15-37) Alanine Aminotransferase (ALT/SGPT) 35 U/L (14-59) Alkaline Phosphatase 286 U/L (46-116) Creatine Kinase 87 U/L (26-192) Creatine Kinase MB (Mass) 1.0 ng/mL (0.0-3.6) Creatine Kinase MB Relative Index 1.1 % (0-4) Troponin I Quantitative < 0.017 ng/mL (0.000-0.055) < 0.017 ng/mL (0.000-0.055) < 0.017 ng/mL (0.000-0.055) Total Protein 5.7 g/dL (6.4-8.2) Albumin 2.4 g/dL (3.4-5.0) Albumin/Globulin Ratio 0.7 (1.0-1.7) Lipase 58 U/L (73-393) Heparin Anti-Xa Act, Unfractionated > 1.10 IU/mL (0.30-0.70) 0.45 IU/mL (0.30-0.70) Test 05/07/19 20:45 05/08/19 05:00 Heparin Anti-Xa Act, Unfractionated 0.48 IU/mL (0.30-0.70) 0.67 IU/mL (0.30-0.70) Potassium Level 3.4 mmol/L (3.5-5.1) 3.6 mmol/L (3.5-5.1) White Blood Count 8.5 x10^3/uL (4.0-11.0) Red Blood Count 3.51 x10^6/uL (3.50-5.40) Hemoglobin 10.5 g/dL (12.0-15.5) Hematocrit 31.6 % (36.0-47.0) Mean Corpuscular Volume 90 fL (79-100) Mean Corpuscular Hemoglobin 30 pg (25-35) Mean Corpuscular Hemoglobin Concent 33 g/dL (31-37) Red Cell Distribution Width 16.6 % (11.5-14.5) Platelet Count 107 x10^3/uL (140-400) Neutrophils (%) (Auto) 70 % (31-73) Lymphocytes (%) (Auto) 20 % (24-48) Monocytes (%) (Auto) 7 % (0-9) Eosinophils (%) (Auto) 3 % (0-3) Basophils (%) (Auto) 0 % (0-3) Neutrophils # (Auto) 6.0 x10^3/uL (1.8-7.7) Lymphocytes # (Auto) 1.7 x10^3/uL (1.0-4.8) Monocytes # (Auto) 0.6 x10^3/uL (0.0-1.1) Eosinophils # (Auto) 0.3 x10^3/uL (0.0-0.7) Basophils # (Auto) 0.0 x10^3/uL (0.0-0.2) Sodium Level 141 mmol/L (136-145) Chloride Level 106 mmol/L (98-107) Carbon Dioxide Level 27 mmol/L (21-32) Anion Gap 8 (6-14) Blood Urea Nitrogen 7 mg/dL (7-20) Creatinine 0.7 mg/dL (0.6-1.0) Estimated GFR (Cockcroft-Gault) 88.9 Glucose Level 94 mg/dL (70-99) Calcium Level 7.6 mg/dL (8.5-10.1) Magnesium Level 2.5 mg/dL (1.8-2.4) Procalcitonin 0.10 ng/mL (0.00-0.10) Laboratory Tests Test 05/07/19 14:50 05/07/19 20:45 05/08/19 05:00 Heparin Anti-Xa Act, Unfractionated 0.45 IU/mL (0.30-0.70) 0.48 IU/mL (0.30-0.70) 0.67 IU/mL (0.30-0.70) Potassium Level 3.4 mmol/L (3.5-5.1) 3.6 mmol/L (3.5-5.1) White Blood Count 8.5 x10^3/uL (4.0-11.0) Red Blood Count 3.51 x10^6/uL (3.50-5.40) Hemoglobin 10.5 g/dL (12.0-15.5) Hematocrit 31.6 % (36.0-47.0) Mean Corpuscular Volume 90 fL (79-100) Mean Corpuscular Hemoglobin 30 pg (25-35) Mean Corpuscular Hemoglobin Concent 33 g/dL (31-37) Red Cell Distribution Width 16.6 % (11.5-14.5) Platelet Count 107 x10^3/uL (140-400) Neutrophils (%) (Auto) 70 % (31-73) Lymphocytes (%) (Auto) 20 % (24-48) Monocytes (%) (Auto) 7 % (0-9) Eosinophils (%) (Auto) 3 % (0-3) Basophils (%) (Auto) 0 % (0-3) Neutrophils # (Auto) 6.0 x10^3/uL (1.8-7.7) Lymphocytes # (Auto) 1.7 x10^3/uL (1.0-4.8) Monocytes # (Auto) 0.6 x10^3/uL (0.0-1.1) Eosinophils # (Auto) 0.3 x10^3/uL (0.0-0.7) Basophils # (Auto) 0.0 x10^3/uL (0.0-0.2) Sodium Level 141 mmol/L (136-145) Chloride Level 106 mmol/L (98-107) Carbon Dioxide Level 27 mmol/L (21-32) Anion Gap 8 (6-14) Blood Urea Nitrogen 7 mg/dL (7-20) Creatinine 0.7 mg/dL (0.6-1.0) Estimated GFR (Cockcroft-Gault) 88.9 Glucose Level 94 mg/dL (70-99) Calcium Level 7.6 mg/dL (8.5-10.1) Magnesium Level 2.5 mg/dL (1.8-2.4) Procalcitonin 0.10 ng/mL (0.00-0.10) Medications Active Scripts Medications Dose Route/Sig Max Daily Dose Days Date Category Ambien (Zolpidem Tartrate) 5 Mg Tablet 5 Mg PO PRN QHS PRN 30 04/19/19 Rx [Nicotine 21MG] 1 PATCH Patch 1 Patch TD PRN DAILY PRN 30 04/19/19 Rx Oxycontin (Oxycodone HCl) 20 Mg Tab.er.12h 20 Mg PO BID 04/16/19 Reported Pepcid (Famotidine) 40 Mg Tablet 40 Mg PO HS 03/06/19 Reported Compazine (Prochlorperazine Maleate) 10 Mg Tablet 10 Mg PO Q6HRS 03/06/19 Reported Topiramate 100 Mg Tablet 2 Tab PO BID 03/06/19 Reported Venlafaxine Hcl Er (Venlafaxine Hcl) 225 Mg Tab.er.24 1 Tab PO DAILY 09/05/18 Reported Xanax (Alprazolam) 0.5 Mg Tablet 1 Tab PO PRN BID PRN 09/05/18 Reported Gabapentin 600 Mg Tablet 300 Mg PO TID 06/09/18 Reported Levocetirizine Dihydrochloride 5 Mg Tablet 5 Mg PO HS 03/09/18 Reported Carvedilol (Carvedilol) 6.25 Mg Tablet 6.25 Mg PO BIDWMEALS 03/09/18 Reported Oxycodone Hcl Immed.release (Oxycodone Hcl) 10 Mg Tablet 10 Mg PO Q6HRS PRN 03/09/18 Reported Relpax (Eletriptan Hbr) 40 Mg Tablet 40 Mg PO PRN PRN 08/23/17 Reported Flonase Allergy Relief (Fluticasone Propionate) 9.9 Ml [place].susp 2 Sprays NS DAILY 08/23/17 Reported Duoneb 0.5-3(2.5) Mg/3 Ml (Albuterol/Ipratropium) 3 Ml [place].neb 3 Ml NEB QID 08/23/17 Reported Proair Hfa Inhaler (Albuterol Sulfate) 8.5 Gm Hfa.aer.ad 1 Puff INH PRN Q6HRS PRN 08/23/17 Reported Advair 250-50 Diskus (Fluticasone/Salmeterol) 1 Each Disk.w.dev 1 Inh IH BID 08/23/17 Reported Cyclobenzaprine Hcl 10 Mg Tablet 10 Mg PO TID PRN PRN 10/31/13 Reported Atorvastatin Calcium 40 Mg Tablet 20 Mg PO HS 10/31/13 Reported Singulair Tablet (Montelukast Sodium) 10 Mg Tablet 10 Mg PO HS 10/31/13 Reported Impression . full note dictated thanks will monitor the pleural effusion for now pt not very symptomatic VAL PEÑA MD May 08, 2019 11:24
--- NOTE | 2019-05-08 11:34 | PDOC ---
PROGRESS NOTES Assessment Problems Medical Problems: (1) HX: breast cancer Status: Acute (2) Hypokalemia Status: Acute (3) Internal jugular vein thrombosis Status: Acute Right internal jugular and sigmoid sinus thrombosis. Headache and neck pain from these are better. Hypercoaguable state related to cancer? Plan Warfarin, discussed risks, benefits, alternatives, and side effects. There is not a lot of literature to support Apixaban in this situation, I am stopping it Continue heparin until INR therapeutic Observed in ICU one more night Fully discussed with patient and her . Subjective Has some occasional pain Objective Vital Signs Date Time Temp Pulse Resp B/P (MAP) Pulse Ox O2 Delivery O2 Flow Rate FiO2 05/08/19 11:00 92 18 121/89 (100) 95 Nasal Cannula 2.0 05/08/19 08:00 97.6 97.6 Intake and Output 05/08/19 07:00 Intake Total 1706.5 ml Balance 1706.5 ml Intake Oral 1200 ml IV Total 506.5 ml # Voids 3 PHYSICAL EXAM Alert. Oriented to time, place and person. PERRL. EOMI. CN: no focal findings. Muscle tone: normal. Muscle strength: 5/5 DTR: 2+ Plantar reflex: flexor Gait: not examined in bed. Sensory exam: no abnormal findings. No cerebellar signs elicited.Some swelling over the right jugular Review of Relevant I have reviewed the following items danya (where applicable) has been applied. Labs Laboratory Tests Test 05/06/19 19:46 05/06/19 23:50 05/07/19 03:55 05/07/19 14:50 White Blood Count 6.8 x10^3/uL (4.0-11.0) Red Blood Count 3.78 x10^6/uL (3.50-5.40) Hemoglobin 11.3 g/dL (12.0-15.5) Hematocrit 33.7 % (36.0-47.0) Mean Corpuscular Volume 89 fL (79-100) Mean Corpuscular Hemoglobin 30 pg (25-35) Mean Corpuscular Hemoglobin Concent 34 g/dL (31-37) Red Cell Distribution Width 16.5 % (11.5-14.5) Platelet Count 96 x10^3/uL (140-400) Neutrophils (%) (Auto) 69 % (31-73) Lymphocytes (%) (Auto) 17 % (24-48) Monocytes (%) (Auto) 8 % (0-9) Eosinophils (%) (Auto) 6 % (0-3) Basophils (%) (Auto) 0 % (0-3) Neutrophils # (Auto) 4.7 x10^3/uL (1.8-7.7) Lymphocytes # (Auto) 1.2 x10^3/uL (1.0-4.8) Monocytes # (Auto) 0.5 x10^3/uL (0.0-1.1) Eosinophils # (Auto) 0.4 x10^3/uL (0.0-0.7) Basophils # (Auto) 0.0 x10^3/uL (0.0-0.2) Segmented Neutrophils % 63 % (35-66) Band Neutrophils % 7 % (0-9) Lymphocytes % 19 % (24-48) Monocytes % 5 % (0-10) Eosinophils % 6 % (0-5) Platelet Estimate Decreased (ADEQUATE) Giant Platelets Few Polychromasia Slight Anisocytosis Slight Prothrombin Time 15.2 SEC (11.7-14.0) Prothromb Time International Ratio 1.2 (0.8-1.1) Activated Partial Thromboplast Time 25 SEC (24-38) Sodium Level 139 mmol/L (136-145) Potassium Level 3.2 mmol/L (3.5-5.1) Chloride Level 102 mmol/L (98-107) Carbon Dioxide Level 28 mmol/L (21-32) Anion Gap 9 (6-14) Blood Urea Nitrogen 7 mg/dL (7-20) Creatinine 0.9 mg/dL (0.6-1.0) Estimated GFR (Cockcroft-Gault) 66.5 BUN/Creatinine Ratio 8 (6-20) Glucose Level 104 mg/dL (70-99) Lactic Acid Level 1.9 mmol/L (0.4-2.0) Calcium Level 7.7 mg/dL (8.5-10.1) Magnesium Level 2.1 mg/dL (1.8-2.4) Total Bilirubin 0.6 mg/dL (0.2-1.0) Aspartate Amino Transf (AST/SGOT) 23 U/L (15-37) Alanine Aminotransferase (ALT/SGPT) 35 U/L (14-59) Alkaline Phosphatase 286 U/L (46-116) Creatine Kinase 87 U/L (26-192) Creatine Kinase MB (Mass) 1.0 ng/mL (0.0-3.6) Creatine Kinase MB Relative Index 1.1 % (0-4) Troponin I Quantitative < 0.017 ng/mL (0.000-0.055) < 0.017 ng/mL (0.000-0.055) < 0.017 ng/mL (0.000-0.055) Total Protein 5.7 g/dL (6.4-8.2) Albumin 2.4 g/dL (3.4-5.0) Albumin/Globulin Ratio 0.7 (1.0-1.7) Lipase 58 U/L (73-393) Heparin Anti-Xa Act, Unfractionated > 1.10 IU/mL (0.30-0.70) 0.45 IU/mL (0.30-0.70) Test 05/07/19 20:45 05/08/19 05:00 Heparin Anti-Xa Act, Unfractionated 0.48 IU/mL (0.30-0.70) 0.67 IU/mL (0.30-0.70) Potassium Level 3.4 mmol/L (3.5-5.1) 3.6 mmol/L (3.5-5.1) White Blood Count 8.5 x10^3/uL (4.0-11.0) Red Blood Count 3.51 x10^6/uL (3.50-5.40) Hemoglobin 10.5 g/dL (12.0-15.5) Hematocrit 31.6 % (36.0-47.0) Mean Corpuscular Volume 90 fL (79-100) Mean Corpuscular Hemoglobin 30 pg (25-35) Mean Corpuscular Hemoglobin Concent 33 g/dL (31-37) Red Cell Distribution Width 16.6 % (11.5-14.5) Platelet Count 107 x10^3/uL (140-400) Neutrophils (%) (Auto) 70 % (31-73) Lymphocytes (%) (Auto) 20 % (24-48) Monocytes (%) (Auto) 7 % (0-9) Eosinophils (%) (Auto) 3 % (0-3) Basophils (%) (Auto) 0 % (0-3) Neutrophils # (Auto) 6.0 x10^3/uL (1.8-7.7) Lymphocytes # (Auto) 1.7 x10^3/uL (1.0-4.8) Monocytes # (Auto) 0.6 x10^3/uL (0.0-1.1) Eosinophils # (Auto) 0.3 x10^3/uL (0.0-0.7) Basophils # (Auto) 0.0 x10^3/uL (0.0-0.2) Sodium Level 141 mmol/L (136-145) Chloride Level 106 mmol/L (98-107) Carbon Dioxide Level 27 mmol/L (21-32) Anion Gap 8 (6-14) Blood Urea Nitrogen 7 mg/dL (7-20) Creatinine 0.7 mg/dL (0.6-1.0) Estimated GFR (Cockcroft-Gault) 88.9 Glucose Level 94 mg/dL (70-99) Calcium Level 7.6 mg/dL (8.5-10.1) Magnesium Level 2.5 mg/dL (1.8-2.4) Procalcitonin 0.10 ng/mL (0.00-0.10) Laboratory Tests Test 05/07/19 14:50 05/07/19 20:45 05/08/19 05:00 Heparin Anti-Xa Act, Unfractionated 0.45 IU/mL (0.30-0.70) 0.48 IU/mL (0.30-0.70) 0.67 IU/mL (0.30-0.70) Potassium Level 3.4 mmol/L (3.5-5.1) 3.6 mmol/L (3.5-5.1) White Blood Count 8.5 x10^3/uL (4.0-11.0) Red Blood Count 3.51 x10^6/uL (3.50-5.40) Hemoglobin 10.5 g/dL (12.0-15.5) Hematocrit 31.6 % (36.0-47.0) Mean Corpuscular Volume 90 fL (79-100) Mean Corpuscular Hemoglobin 30 pg (25-35) Mean Corpuscular Hemoglobin Concent 33 g/dL (31-37) Red Cell Distribution Width 16.6 % (11.5-14.5) Platelet Count 107 x10^3/uL (140-400) Neutrophils (%) (Auto) 70 % (31-73) Lymphocytes (%) (Auto) 20 % (24-48) Monocytes (%) (Auto) 7 % (0-9) Eosinophils (%) (Auto) 3 % (0-3) Basophils (%) (Auto) 0 % (0-3) Neutrophils # (Auto) 6.0 x10^3/uL (1.8-7.7) Lymphocytes # (Auto) 1.7 x10^3/uL (1.0-4.8) Monocytes # (Auto) 0.6 x10^3/uL (0.0-1.1) Eosinophils # (Auto) 0.3 x10^3/uL (0.0-0.7) Basophils # (Auto) 0.0 x10^3/uL (0.0-0.2) Sodium Level 141 mmol/L (136-145) Chloride Level 106 mmol/L (98-107) Carbon Dioxide Level 27 mmol/L (21-32) Anion Gap 8 (6-14) Blood Urea Nitrogen 7 mg/dL (7-20) Creatinine 0.7 mg/dL (0.6-1.0) Estimated GFR (Cockcroft-Gault) 88.9 Glucose Level 94 mg/dL (70-99) Calcium Level 7.6 mg/dL (8.5-10.1) Magnesium Level 2.5 mg/dL (1.8-2.4) Procalcitonin 0.10 ng/mL (0.00-0.10) Medications Current Medications Sodium Chloride 1,000 ml @ 1,000 mls/hr 1X ONCE IV Last administered on 05/06/19at 19:55; Start 05/06/19 at 19:00; Stop 05/06/19 at 19:59; Status DC Dexamethasone Sodium Phosphate (Decadron) 10 mg 1X ONCE IVP Last administered on 05/06/19at 19:57; Start 05/06/19 at 19:30; Stop 05/06/19 at 19:38; Status DC Orphenadrine Citrate (Norflex) 60 mg 1X ONCE IV Last administered on 05/06/19 19:57; Start 05/06/19 at 19:30; Stop 05/06/19 at 19:38; Status DC Ondansetron HCl (Zofran) 4 mg 1X ONCE IVP Last administered on 05/06/19 19:57; Start 05/06/19 at 19:30; Stop 05/06/19 at 19:38; Status DC Fentanyl Citrate (Fentanyl 2ml Vial) 50 mcg 1X ONCE IVP Last administered on 05/06/19at 20:02; Start 05/06/19 at 19:30; Stop 05/06/19 at 19:38; Status DC Aspirin (Sumi Aspirin) 325 mg 1X ONCE PO Last administered on 05/06/19 20:37; Start 05/06/19 at 20:30; Stop 05/06/19 at 20:31; Status DC Heparin Sodium (Porcine) (Heparin Sodium) 6,900 unit 1X ONCE IV Last administered on 05/06/19at 21:36; Start 05/06/19 at 21:30; Stop 05/06/19 at 21:31; Status DC Heparin Sodium/ Dextrose 500 ml @ 0 mls/hr CONT PRN IV PER PROTOCOL Last administered on 05/07/19at 20:12; Start 05/06/19 at 21:00; Stop 05/08/19 at 08:30; Status DC Heparin Sodium (Porcine) (Heparin Sodium) 2,600 unit PRN Q6HRS PRN IV FOR UFH LEVEL LESS THAN 0.2; Start 05/06/19 at 21:00 Heparin Sodium (Porcine) (Heparin Sodium) 1,300 unit PRN Q6HRS PRN IV FOR UFH LEVEL 0.2 - 0.29; Start 05/06/19 at 21:00 Ondansetron HCl (Zofran) 4 mg PRN Q8HRS PRN IV NAUSEA/VOMITING 1ST CHOICE; Start 05/06/19 at 21:00; Stop 05/07/19 at 20:59; Status DC Fentanyl Citrate (Fentanyl 2ml Vial) 50 mcg PRN Q2HRS PRN IV SEVERE PAIN 7-10; Start 05/06/19 at 21:00 Iohexol (Omnipaque 350 Mg/ml) 100 ml 1X ONCE IV Last administered on 05/06/19at 21:39; Start 05/06/19 at 21:15; Stop 05/06/19 at 21:16; Status DC Info (Anti-Coagulation Monitoring By Pharmacy) 1 each PRN DAILY PRN MC SEE COMMENTS Last administered on 05/07/19at 12:32; Start 05/06/19 at 21:15 Info (CONTRAST GIVEN -- Rx MONITORING) 1 each PRN DAILY PRN MC SEE COMMENTS; Start 05/06/19 at 21:15; Stop 05/08/19 at 21:14 Albuterol Sulfate (Ventolin Neb Soln) 2.5 mg PRN Q6HRS PRN INH SHORTNESS OF BREATH; Start 05/07/19 at 09:45 Alprazolam (Xanax) 0.5 mg PRN BID PRN PO ANXIETY Last administered on 05/07/19 21:13; Start 05/07/19 at 09:45 Atorvastatin Calcium (Lipitor) 20 mg QHS PO Last administered on 05/07/19 21:13; Start 05/07/19 at 21:00 Carvedilol (Coreg) 6.25 mg BIDWMEALS PO Last administered on 05/08/19 09:38; Start 05/07/19 at 17:00 Cyclobenzaprine HCl (Flexeril) 10 mg TID PRN PRN PO MUSCLE SPASMS Last administered on 05/07/19 21:12; Start 05/07/19 at 09:45 Albuterol/ Ipratropium (Duoneb) 3 ml RTQID NEB Last administered on 05/08/19 09:07; Start 05/07/19 at 13:00 Montelukast Sodium (Singulair) 10 mg HS PO Last administered on 05/07/19 21:12; Start 05/07/19 at 21:00 Topiramate (Topamax) 200 mg BID PO Last administered on 05/08/19 09:33; Start 05/07/19 at 10:00 Zolpidem Tartrate (Ambien) 5 mg PRN QHS PRN PO INSOMNIA Last administered on 05/07/19at 21:13; Start 05/07/19 at 09:45 Sumatriptan Succinate (Imitrex) 100 mg PRN Q2HR PRN PO MIGRAINE HEADACHE; Star t 05/07/19 at 10:15 Famotidine (Pepcid) 20 mg BID PO Last administered on 05/08/19 09:32; Start 05/07/19 at 21:00 Fluticasone Propionate (Flonase) 2 spray DAILY NS Last administered on 05/08/19at 09:38; Start 05/08/19 at 09:00 Non-Formulary Medication (Fluticasone/ Salmeterol (Advair 250-50 Diskus)) 1 inh BID IH ; Start 05/07/19 at 21:00; Status UNV Gabapentin (Neurontin) 300 mg TID PO Last administered on 05/08/19 09:34; Start 05/07/19 at 14:00 Cetirizine HCl (ZyrTEC) 10 mg DAILY PO Last administered on 05/08/19 09:33; Start 05/08/19 at 09:00 Oxycodone HCl (Roxicodone) 10 mg PRN Q6HRS PRN PO PAIN; Start 05/07/19 at 10:00 Oxycodone HCl (OxyCONTIN) 20 mg Q12HR PO Last administered on 05/08/19 09:33; Start 05/07/19 at 10:00 Prochlorperazine Maleate (Compazine) 10 mg PRN Q6HRS PRN PO NAUSEA/VOMITING; Start 05/07/19 at 10:30 Venlafaxine HCl (Effexor Xr) 225 mg DAILY PO Last administered on 05/08/19 09:34; Start 05/07/19 at 10:00 Nicotine (Nicoderm Cq 21mg) 1 patch PRN DAILY PRN TD SMOKING CESSATION; Start 05/08/19 at 09:00 Budesonide (Pulmicort) 0.5 mg RTBID NEB Last administered on 05/08/19at 09:07; Start 05/07/19 at 11:00 Potassium Chloride/Water 100 ml @ 100 mls/hr Q1H IV Last administered on 05/07/19at 11:04; Start 05/07/19 at 10:30; Stop 05/07/19 at 11:41; Status DC Potassium Chloride (Klor-Con) 40 meq 1X ONCE PO Last administered on 05/07/19at 11:51; Start 05/07/19 at 11:45; Stop 05/07/19 at 11:46; Status DC Apixaban (Eliquis) 10 mg BID PO Last administered on 05/08/19at 10:32; Start 05/08/19 at 10:30; Stop 05/14/19 at 21:01 Potassium Chloride (Klor-Con) 40 meq 1X ONCE PO Last administered on 05/08/19at 09:34; Start 05/08/19 at 08:00; Stop 05/08/19 at 08:03; Status DC Apixaban (Eliquis) 5 mg BID PO ; Start 05/15/19 at 09:00 Active Scripts Active Ambien (Zolpidem Tartrate) 5 Mg Tablet 5 Mg PO PRN QHS PRN 30 Days [Nicotine 21MG] 1 PATCH Patch 1 Patch TD PRN DAILY PRN 30 Days Reported Oxycontin (Oxycodone HCl) 20 Mg Tab.er.12h 20 Mg PO BID Pepcid (Famotidine) 40 Mg Tablet 40 Mg PO HS Compazine (Prochlorperazine Maleate) 10 Mg Tablet 10 Mg PO Q6HRS Topiramate 100 Mg Tablet 2 Tab PO BID Venlafaxine Hcl Er (Venlafaxine Hcl) 225 Mg Tab.er.24 1 Tab PO DAILY Xanax (Alprazolam) 0.5 Mg Tablet 1 Tab PO PRN BID PRN Gabapentin 600 Mg Tablet 300 Mg PO TID Levocetirizine Dihydrochloride 5 Mg Tablet 5 Mg PO HS Carvedilol (Carvedilol) 6.25 Mg Tablet 6.25 Mg PO BIDWMEALS Oxycodone Hcl Immed.release (Oxycodone Hcl) 10 Mg Tablet 10 Mg PO Q6HRS PRN Relpax (Eletriptan Hbr) 40 Mg Tablet 40 Mg PO PRN PRN Flonase Allergy Relief (Fluticasone Propionate) 9.9 Ml [place].susp 2 Sprays NS DAILY Duoneb 0.5-3(2.5) Mg/3 Ml (Albuterol/Ipratropium) 3 Ml Ampul.neb 3 Ml NEB QID Proair Hfa Inhaler (Albuterol Sulfate) 8.5 Gm Hfa.aer.ad 1 Puff INH PRN Q6HRS PRN Advair 250-50 Diskus (Fluticasone/Salmeterol) 1 Each Disk.w.dev 1 Inh IH BID Cyclobenzaprine Hcl 10 Mg Tablet 10 Mg PO TID PRN PRN Atorvastatin Calcium 40 Mg Tablet 20 Mg PO HS Singulair Tablet (Montelukast Sodium) 10 Mg Tablet 10 Mg PO HS Vitals/I & O Vital Sign - Last 24 Hours 05/07/19 05/07/19 05/07/19 05/07/19 12:00 12:00 12:17 13:00 Pulse 92 105 Resp 18 18 B/P (MAP) 99/73 (82) 97/74 (82) Pulse Ox 92 98 91 O2 Delivery Nasal Cannula Nasal Cannula Room Air Nasal Cannula O2 Flow Rate 2.0 2.0 2.0 2.0 05/07/19 05/07/19 05/07/19 05/07/19 15:00 16:00 16:00 17:00 Pulse 105 104 108 Resp 18 18 18 B/P (MAP) 105/75 (85) 114/77 (89) 107/67 (80) Pulse Ox 93 93 93 O2 Delivery Nasal Cannula Nasal Cannula Nasal Cannula Nasal Cannula O2 Flow Rate 2.0 2.0 2.0 2.0 05/07/19 05/07/19 05/07/19 05/07/19 17:00 17:52 17:55 19:00 Pulse 115 115 111 Resp 18 19 B/P (MAP) 104/68 (80) 99/69 (79) Pulse Ox 98 94 96 O2 Delivery Room Air Nasal Cannula Nasal Cannula O2 Flow Rate 2.0 2.0 2.0 05/07/19 05/07/19 05/07/19 05/07/19 19:27 20:00 20:00 21:00 Temp 98.4 98.4 Pulse 106 106 Resp 19 20 B/P (MAP) 99/67 (78) 87/63 (71) Pulse Ox 98 96 96 O2 Delivery Room Air Nasal Cannula Nasal Cannula Nasal Cannula O2 Flow Rate 2.0 2.0 2.0 2.0 05/07/19 05/07/19 05/07/19 05/07/19 21:12 22:00 23:00 23:59 Pulse 111 101 Resp 16 20 20 B/P (MAP) 83/58 (66) 91/63 (72) Pulse Ox 96 96 94 O2 Delivery Nasal Cannula Nasal Cannula Nasal Cannula Nasal Cannula O2 Flow Rate 2.0 2.0 2.0 2.0 05/08/19 05/08/19 05/08/19 05/08/19 00:00 01:00 01:12 02:00 Pulse 103 108 100 Resp 20 20 20 20 B/P (MAP) 83/60 (68) 112/69 (83) 91/67 (75) Pulse Ox 95 95 95 94 O2 Delivery Nasal Cannula Nasal Cannula Nasal Cannula Nasal Cannula O2 Flow Rate 2.0 2.0 2.0 2.0 05/08/19 05/08/19 05/08/19 05/08/19 03:00 04:00 04:00 05:00 Temp 98.0 98.0 Pulse 99 95 92 Resp 15 23 23 B/P (MAP) 81/49 (60) 102/70 (81) 113/75 (88) Pulse Ox 94 95 95 O2 Delivery Nasal Cannula Nasal Cannula Nasal Cannula Nasal Cannula O2 Flow Rate 2.0 2.0 2.0 2.0 05/08/19 05/08/19 05/08/19 05/08/19 06:00 07:00 08:00 08:00 Temp 97.6 97.6 Pulse 97 92 95 Resp 15 16 16 B/P (MAP) 82/63 (69) 80/60 (67) 99/62 (74) Pulse Ox 94 93 93 O2 Delivery Nasal Cannula Nasal Cannula Nasal Cannula Nasal Cannula O2 Flow Rate 2.0 2.0 2.0 2.0 05/08/19 05/08/19 05/08/19 05/08/19 09:00 09:09 09:33 09:38 Pulse 92 98 Resp 15 17 B/P (MAP) 103/64 (77) 103/62 Pulse Ox 94 98 94 O2 Delivery Nasal Cannula Nasal Cannula Nasal Cannula O2 Flow Rate 2.0 2.0 2.0 05/08/19 05/08/19 10:00 11:00 Pulse 94 92 Resp 17 18 B/P (MAP) 111/69 (83) 121/89 (100) Pulse Ox 95 95 O2 Delivery Nasal Cannula Nasal Cannula O2 Flow Rate 2.0 2.0 Intake and Output 05/07/19 05/07/19 05/08/19 15:00 23:00 07:00 Intake Total 50 ml 560 ml 1096.5 ml Balance 50 ml 560 ml 1096.5 ml Images MR venogram of the head History: Right sinus venous thrombosis Technique: MR venography was performed of the head. Comparison: February 27, 2019 MRI brain exam Findings: Only minimal flow related enhancement is seen of the small caliber right proximal transverse venous sinus, no demonstrable flow related enhancement of the right jugular bulb or sigmoid sinus. There is visualization of segments of the superior sagittal sinus, cannot exclude nonocclusive linear filling defect near the vertex on this exam. There is visualization of left transverse and sigmoid sinuses and left jugular bulb with some areas of decreased flow-related enhancement centrally possibly due to flow artifact although much smaller caliber of the more distal left transverse venous sinus. There is visualization of segments of the internal cerebral veins and straight sinus. Impression: 1. Right internal jugular bulb and right sigmoid sinus as well as distal right transverse sinus are not visualized and may be occluded or aplastic. Nonocclusive filling defect/thrombus of the superior sagittal sinus near the vertex is not excluded by this exam. There is a small caliber of the more distal left transverse sinus although may be on a developmental basis. Potentially CT venography could be beneficial to better assess for true filling defects in these regions. TETO LEVINE MD May 08, 2019 11:34
[2019-05-08] MEDS: fentaNYL PF VIAL 100 MCG/2 ML VIAL IV PRN ×2 (12:15→15:43)
--- NOTE | 2019-05-08 12:43 | CONS ---
DATE OF CONSULTATION: 05/08/2019 ATTENDING PHYSICIAN: Tirso García MD REASON FOR CONSULTATION: The patient seen in pulmonary consultation at the request of Dr. García for abnormal CT chest revealing pleural effusion. HISTORY OF PRESENT ILLNESS: The patient is a 49-year-old with stage 4 breast cancer who is now admitted with a thrombus involving the right jugular vein. She is a 49-year-old with a prior history of breast cancer diagnosed in 08/2017. She underwent a left breast lumpectomy with sentinel lymph node biopsy revealing stage IIA breast cancer. She subsequently underwent bilateral mastectomy, received chemotherapy with Adriamycin and Cytoxan along with Taxol. She had a PET scan on 02/22/2019 revealing hilar and mediastinal lymph node and sclerotic lesions compatible with metastatic disease. She had a bone biopsy on 03/06/2019 revealing poorly differentiated metastatic adenocarcinoma. She was started on palliative chemotherapy in 04/2019. She also had a pleural effusion and underwent thoracentesis removing 1.5 liters of pleural fluid back on 04/16/2019. She presented to [facility] with some headaches, right facial droop. She was evaluated and found to have a right jugular vein thrombosis. She is currently on heparin. She also had a CT chest, which revealed loculated pleural effusion and some adenopathy. I was asked to see her in consultation for the pleural fluid. She also has a mass-like consolidation of left hilar region and numerous osseous sclerotic lesions throughout the osseous structures. There were no pulmonary emboli within the main lobar or segmental pulmonary arteries. PAST MEDICAL HISTORY: Metastatic breast cancer as indicated above, previous cervical cancer, migraine headaches, hypertension, sinus surgery. PAST SURGICAL HISTORY: As above. FAMILY HISTORY: Remarkable for lung cancer, thyroid cancer. SOCIAL HISTORY: She currently smokes on and off. REVIEW OF SYSTEMS: As indicated above, otherwise, a 10-point system was reviewed and negative. PHYSICAL EXAMINATION: VITAL SIGNS: Stable. O2 saturation was greater than 92%. HEENT: Eyes, the sclerae were nonicteric. NECK: Jugular venous distention was not elevated. No lymphadenopathy. CHEST: Full expansion. LUNGS: Adequate airway flow with diminished breath sounds in the left. CARDIOVASCULAR: Regular rate and rhythm with S1, S2, no S3. ABDOMEN: Soft, nontender, nondistended. EXTREMITIES: No clubbing, cyanosis or edema. NEUROLOGIC: The patient was awake, alert, following commands. A detailed neuro exam was not performed. LABORATORY DATA: Reviewed. White count was normal. Hemoglobin and hematocrit were normal. Electrolytes were noted. BUN and creatinine were normal. CT as indicated above. IMPRESSION: 1. Left-sided loculated pleural effusion secondary to known stage 4 breast cancer. 2. Status post previous left-sided thoracentesis for pleural effusion. 3. Stage 4 breast cancer. 4. 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 5. Bony metastases. 6. Liver metastases. 7. Tobacco dependent. 8. Suspect chronic obstructive pulmonary disease. PLAN: Respiratory status appears to be compensated. I recommend continue monitoring. If the patient becomes symptomatic, we will proceed with repeating the thoracentesis or considering PleurX catheter placement. For now, I recommend continue support. Follow Neurology input. I do appreciate the privilege in sharing in the patient's care. VAL PEÑA MD DR: DOMENICA/manjit JOB#: [id number] / [id number]
[2019-05-08] MEDS: ANTI-COAG MONITOR BY PHARMACY. MC PRN (13:10)
--- NOTE | 2019-05-08 13:42 | NUR ---
Pharmacy Warfarin Dosing Note S:Pharmacy consulted to assist with anticoagulation therapy started 05/08/19 with target INR: 2 -3 O:JAMAAL GUERRERO is a 49 year old F with DVT/PE INTERNAL JUGULAR VEIN THROMBOSIS, PROBABLE SIGMOID SINUS THROMBOSIS LABS: Last INR: 1.2 Last HGB: 10.5 Last HCT: 31.6 Last PLT: 107 Last dose of Hold given on 05/07/19 at 1600 Previous Regimen: Vitamin K given: Drug Interaction Changes: Ongoing Drug Interactions: A:INR of 1.2 is below desired range. Target range for this patient is: 2 -3 P: Warfarin dose: 5 mg Today at 1600 Bridge Therapy: Heparin Therapeutic Next INR due IN AM Pharmacy anticoagulation service will continue to follow. ALEXIS CHANDLER, [facility], 05/08/19 [id number]
[2019-05-08] MEDS ORDERED: CAPE500T PO (14:26)
[2019-05-08] MEDS ORDERED: WARFARIN 5 MG TABLET. PO ONE (16:00)
[2019-05-08] MEDS: CYCLOBENZAPRINE 10 MG TABLET. PO PRN (19:57)
[2019-05-08] MEDS: ATORVASTATIN CALCIUM 20 MG TABLET PO SCH (19:57)
[2019-05-08] MEDS: ALPRAZolam 0.5 MG TABLET PO PRN (19:57)
[2019-05-08] MEDS: APIXABAN 5 MG TABLET. PO SCH (19:57)
[2019-05-08] MEDS: SUMAtriptan SUCCINATE 100 MG TABLET PO PRN (19:59)
[2019-05-08] MEDS: MONTELUKAST SODIUM 10 MG TABLET. PO SCH (19:59)
[2019-05-09] VITALS (22 sets, daily range): BP systolic 81–131; BP diastolic 59–107
[2019-05-09] MEDS: oxyCODONE IR 5 MG TABLET PO PRN ×3 (05:05→22:10)
[2019-05-09 05:17] LABS: PROTHROMBIN TIME PATIENT 15.9 SEC (11.7-14.0)
[2019-05-09] MEDS: BUDESONIDE 0.5 MG/2 ML NEBU. NEB SCH ×2 (07:56→19:35)
[2019-05-09] MEDS: IPRATRPIUM/ALBUTEROL 0.5/2.5MG 3 ML NEBU. NEB SCH ×4 (07:57→19:35)
[2019-05-09] MEDS: FLUTICASONE 50MCG/NASAL SPRAY 16GM BOTTLE. NS SCH (08:11)
[2019-05-09] MEDS: CARVEDILOL 6.25 MG TABLET. PO SCH ×2 (08:11→17:19)
[2019-05-09] MEDS: APIXABAN 5 MG TABLET. PO SCH ×2 (08:12→22:09)
[2019-05-09] MEDS: SUMAtriptan SUCCINATE 100 MG TABLET PO PRN ×2 (08:12→22:10)
[2019-05-09] MEDS: CETIRIZINE HCL 10 MG TABLET. PO SCH (08:12)
[2019-05-09] MEDS: oxyCODONE ER 10 MG TAB.ER.12H PO SCH (08:12)
[2019-05-09] MEDS: GABAPENTIN 300 MG CAPSULE. PO SCH ×3 (08:12→22:10)
[2019-05-09] MEDS: TOPIRAMATE 100 MG TABLET. PO SCH ×2 (08:12→22:09)
[2019-05-09] MEDS: FAMOTIDINE 20 MG TABLET. PO SCH ×2 (08:12→22:10)
--- NOTE | 2019-05-09 08:14 | PDOC ---
PROGRESS NOTES Chief Complaint Chief Complaint A/P: Hyperdense appearance of the right sigmoid sinus, strongly favored to represent dural venous thrombosis - confirmatory MRV given her symptoms. Cont anticoagulat ion for now. Given interactions with warfarin and xeloda, will opt to give eliquis Anemia - Likely related to active cancer, will monitor Hypoxic respiratory failure - possibly related to pleural effusion. Breath sounds absent on left Hypotension - will monitor Hypokalemia - replaced oral, will monitor Metastatic breast cancer - triple negative, has an overall poor prognosis and lawrence s had a bad year, likely her clot is related to active malignancy. Will consult heme/onc for advice on both. Expanded appearance of the right internal jugular vein which could reflect thrombus. Ultrasound confirmed this. Continue anticoagulation Heterogenous sclerotic appearance of the osseous structures. Correlate with cancer history for osseous metastatic disease. Left pleural effusion - this is recurrent, had a thoracentesis previously this month. malignant. Anxiety with depression - will cont meds Asthma - will cont inhalers Smoker - nicotine patch SEVERE PROTEIN CALORIE MALNUTRITION - almost certainly 2/2 active cancer. Nutritional supplements, dietitician to see Confusion - benzos, topiramate, gabapentin, and opioids can all cause this FEN - General diet PPX - heparin --> Eliquis FULL CODE Dispo - ICU for thrombus, will Cont ICU for now History of Present Illness History of Present Illness Ms Rausch is a 49-year-old female with past medical history of breast cancer with metastasis to bone and liver, asthma, migraines, smoker who presents with 2-3 day history of right neck pain, headache, facial swelling and numbness, and decreased hearing on right side. Recently seen by Dr. Garcia (oncology) on Tuesday for symptoms and treated for muscle tension. She was found with concerning CT head for right venous sinus thrombosis and found with complete left jugular occlusion on neck ultrasound, started on heparin GTT and admitted for further care. 05/08: MRV confirmed likely sinus thrombosis. Her symptoms improved with heparin GTT. Still very dizzy and lightheaded. Still on NCO2. Seen by pulmonology. D/w heme/onc that coumadin would interfere with her treatment regimen and opted for initiating eliquis. Hearing loss is still a symptom today. Right sided headache worse. Significant other concerned about confusion. I have advised benzos, topiramate, gabapentin, and opioids can all cause this. Plan for MRI. Likely can d/c after that soon. Plan: Cont ICU Consulted pulm for hypoxia, decreased left sided breath sounds - will need f/u of known left malignant pleural effusion Transition to eliquis 10mg BID for 7 days, then 5mg BID Vitals Vitals Vital Signs Date Time Temp Pulse Resp B/P (MAP) Pulse Ox O2 Delivery O2 Flow Rate FiO2 05/09/19 07:57 95 Nasal Cannula 2.0 05/09/19 06:00 105 25 131/66 (87) 05/09/19 04:00 98.7 98.7 Physical Exam General: Alert, Cooperative Heart: Normal S1, Normal S2 Lungs: Crackles, Other Abdomen: Normal bowel sounds, Soft, No tenderness, No hepatosplenomegaly, No masses Extremities: No clubbing, No cyanosis, No edema, Normal pulses, No tenderness/swelling Skin: No rashes, No breakdown, No significant lesion Labs LABS Laboratory Tests Test 05/09/19 04:30 Prothrombin Time 15.9 SEC (11.7-14.0) Prothromb Time International Ratio 1.3 (0.8-1.1) Assessment and Plan Assessmemt and Plan Problems Medical Problems: (1) HX: breast cancer Status: Acute (2) Hypokalemia Status: Acute (3) Internal jugular vein thrombosis Status: Acute Comment Review of Relevant I have reviewed the following items danya (where applicable) has been applied. Labs Laboratory Tests Test 05/07/19 14:50 05/07/19 20:45 05/08/19 05:00 05/09/19 04:30 Heparin Anti-Xa Act, Unfractionated 0.45 IU/mL (0.30-0.70) 0.48 IU/mL (0.30-0.70) 0.67 IU/mL (0.30-0.70) Potassium Level 3.4 mmol/L (3.5-5.1) 3.6 mmol/L (3.5-5.1) White Blood Count 8.5 x10^3/uL (4.0-11.0) Red Blood Count 3.51 x10^6/uL (3.50-5.40) Hemoglobin 10.5 g/dL (12.0-15.5) Hematocrit 31.6 % (36.0-47.0) Mean Corpuscular Volume 90 fL (79-100) Mean Corpuscular Hemoglobin 30 pg (25-35) Mean Corpuscular Hemoglobin Concent 33 g/dL (31-37) Red Cell Distribution Width 16.6 % (11.5-14.5) Platelet Count 107 x10^3/uL (140-400) Neutrophils (%) (Auto) 70 % (31-73) Lymphocytes (%) (Auto) 20 % (24-48) Monocytes (%) (Auto) 7 % (0-9) Eosinophils (%) (Auto) 3 % (0-3) Basophils (%) (Auto) 0 % (0-3) Neutrophils # (Auto) 6.0 x10^3/uL (1.8-7.7) Lymphocytes # (Auto) 1.7 x10^3/uL (1.0-4.8) Monocytes # (Auto) 0.6 x10^3/uL (0.0-1.1) Eosinophils # (Auto) 0.3 x10^3/uL (0.0-0.7) Basophils # (Auto) 0.0 x10^3/uL (0.0-0.2) Sodium Level 141 mmol/L (136-145) Chloride Level 106 mmol/L (98-107) Carbon Dioxide Level 27 mmol/L (21-32) Anion Gap 8 (6-14) Blood Urea Nitrogen 7 mg/dL (7-20) Creatinine 0.7 mg/dL (0.6-1.0) Estimated GFR (Cockcroft-Gault) 88.9 Glucose Level 94 mg/dL (70-99) Calcium Level 7.6 mg/dL (8.5-10.1) Magnesium Level 2.5 mg/dL (1.8-2.4) Procalcitonin 0.10 ng/mL (0.00-0.10) Prothrombin Time 15.9 SEC (11.7-14.0) Prothromb Time International Ratio 1.3 (0.8-1.1) Laboratory Tests Test 05/09/19 04:30 Prothrombin Time 15.9 SEC (11.7-14.0) Prothromb Time International Ratio 1.3 (0.8-1.1) Medications Current Medications Sodium Chloride 1,000 ml @ 1,000 mls/hr 1X ONCE IV Last administered on 05/06/19 19:55; Start 05/06/19 at 19:00; Stop 05/06/19 at 19:59; Status DC Dexamethasone Sodium Phosphate (Decadron) 10 mg 1X ONCE IVP Last administered on 05/06/19 19:57; Start 05/06/19 at 19:30; Stop 05/06/19 at 19:38; Status DC Orphenadrine Citrate (Norflex) 60 mg 1X ONCE IV Last administered on 05/06/19 19:57; Start 05/06/19 at 19:30; Stop 05/06/19 at 19:38; Status DC Ondansetron HCl (Zofran) 4 mg 1X ONCE IVP Last administered on 05/06/19 19:57; Start 05/06/19 at 19:30; Stop 05/06/19 at 19:38; Status DC Fentanyl Citrate (Fentanyl 2ml Vial) 50 mcg 1X ONCE IVP Last administered on 05/06/19 20:02; Start 05/06/19 at 19:30; Stop 05/06/19 at 19:38; Status DC Aspirin (Sumi Aspirin) 325 mg 1X ONCE PO Last administered on 05/06/19at 20:37; Start 05/06/19 at 20:30; Stop 05/06/19 at 20:31; Status DC Heparin Sodium (Porcine) (Heparin Sodium) 6,900 unit 1X ONCE IV Last administered on 05/06/19at 21:36; Start 05/06/19 at 21:30; Stop 05/06/19 at 21:31; Status DC Heparin Sodium/ Dextrose 500 ml @ 0 mls/hr CONT PRN IV PER PROTOCOL Last administered on 05/07/19at 20:12; Start 05/06/19 at 21:00; Stop 05/08/19 at 08:30; Status DC Heparin Sodium (Porcine) (Heparin Sodium) 2,600 unit PRN Q6HRS PRN IV FOR UFH LEVEL LESS THAN 0.2; Start 05/06/19 at 21:00; Stop 05/08/19 at 14:13; Status DC Heparin Sodium (Porcine) (Heparin Sodium) 1,300 unit PRN Q6HRS PRN IV FOR UFH LEVEL 0.2 - 0.29; Start 05/06/19 at 21:00; Stop 05/08/19 at 14:13; Status DC Ondansetron HCl (Zofran) 4 mg PRN Q8HRS PRN IV NAUSEA/VOMITING 1ST CHOICE; Start 05/06/19 at 21:00; Stop 05/07/19 at 20:59; Status DC Fentanyl Citrate (Fentanyl 2ml Vial) 50 mcg PRN Q2HRS PRN IV SEVERE PAIN 7-10 Last administered on 05/08/19 15:43; Start 05/06/19 at 21:00 Iohexol (Omnipaque 350 Mg/ml) 100 ml 1X ONCE IV Last administered on 9at 21:39; Start 05/06/19 at 21:15; Stop 05/06/19 at 21:16; Status DC Info (Anti-Coagulation Monitoring By Pharmacy) 1 each PRN DAILY PRN MC SEE COMMENTS Last administered on 05/08/19at 13:10; Start 05/06/19 at 21:15 Info (CONTRAST GIVEN -- Rx MONITORING) 1 each PRN DAILY PRN MC SEE COMMENTS; Start 05/06/19 at 21:15; Stop 05/08/19 at 21:14; Status DC Albuterol Sulfate (Ventolin Neb Soln) 2.5 mg PRN Q6HRS PRN INH SHORTNESS OF BREATH; Start 05/07/19 at 09:45 Alprazolam (Xanax) 0.5 mg PRN BID PRN PO ANXIETY Last administered on 05/08/19 19:57; Start 05/07/19 at 09:45 Atorvastatin Calcium (Lipitor) 20 mg QHS PO Last administered on 05/08/19 19:57; Start 05/07/19 at 21:00 Carvedilol (Coreg) 6.25 mg BIDWMEALS PO Last administered on 05/08/19 09:38; Start 05/07/19 at 17:00 Cyclobenzaprine HCl (Flexeril) 10 mg TID PRN PRN PO MUSCLE SPASMS Last administered on 05/08/19 19:57; Start 05/07/19 at 09:45 Albuterol/ Ipratropium (Duoneb) 3 ml RTQID NEB Last administered on 05/09/19 07:57; Start 05/07/19 at 13:00 Montelukast Sodium (Singulair) 10 mg HS PO Last administered on 05/08/19 19:59; Start 05/07/19 at 21:00 Topiramate (Topamax) 200 mg BID PO Last administered on 05/08/19 19:59; Start 05/07/19 at 10:00 Zolpidem Tartrate (Ambien) 5 mg PRN QHS PRN PO INSOMNIA Last administered on 05/07/19 21:13; Start 05/07/19 at 09:45 Sumatriptan Succinate (Imitrex) 100 mg PRN Q2HR PRN PO MIGRAINE HEADACHE Last administered on 05/08/19 19:59; Start 05/07/19 at 10:15 Famotidine (Pepcid) 20 mg BID PO Last administered on 05/08/19 19:57; Start 05/07/19 at 21:00 Fluticasone Propionate (Flonase) 2 spray DAILY NS Last administered on 05/08/19 09:38; Start 05/08/19 at 09:00 Non-Formulary Medication (Fluticasone/ Salmeterol (Advair 250-50 Diskus)) 1 inh BID IH ; Start 05/07/19 at 21:00; Status UNV Gabapentin (Neurontin) 300 mg TID PO Last administered on 05/08/19 19:57; Start 05/07/19 at 14:00 Cetirizine HCl (ZyrTEC) 10 mg DAILY PO Last administered on 05/08/19 09:33; Start 05/08/19 at 09:00 Oxycodone HCl (Roxicodone) 10 mg PRN Q6HRS PRN PO PAIN Last administered on 05/09/19 05:05; Start 05/07/19 at 10:00 Oxycodone HCl (OxyCONTIN) 20 mg Q12HR PO Last administered on 05/08/19 19:59; Start 05/07/19 at 10:00 Prochlorperazine Maleate (Compazine) 10 mg PRN Q6HRS PRN PO NAUSEA/VOMITING; Start 05/07/19 at 10:30 Venlafaxine HCl (Effexor Xr) 225 mg DAILY PO Last administered on 05/08/19 09:34; Start 05/07/19 at 10:00 Nicotine (Nicoderm Cq 21mg) 1 patch PRN DAILY PRN TD SMOKING CESSATION; Start 05/08/19 at 09:00 Budesonide (Pulmicort) 0.5 mg RTBID NEB Last administered on 05/09/19at 07:56; Start 05/07/19 at 11:00 Potassium Chloride/Water 100 ml @ 100 mls/hr Q1H IV Last administered on 05/07/19at 11:04; Start 05/07/19 at 10:30; Stop 05/07/19 at 11:41; Status DC Potassium Chloride (Klor-Con) 40 meq 1X ONCE PO Last administered on 05/07/19at 11:51; Start 05/07/19 at 11:45; Stop 05/07/19 at 11:46; Status DC Apixaban (Eliquis) 10 mg BID PO Last administered on 05/08/19at 10:32; Start 05/08/19 at 10:30; Stop 05/08/19 at 11:37; Status DC Potassium Chloride (Klor-Con) 40 meq 1X ONCE PO Last administered on 05/08/19at 09:34; Start 05/08/19 at 08:00; Stop 05/08/19 at 08:03; Status DC Apixaban (Eliquis) 5 mg BID PO ; Start 05/15/19 at 09:00; Stop 05/08/19 at 11:37; Status DC Warfarin Sodium (Coumadin Per Pharmacy) 1 each PRN DAILY PRN MC SEE COMMENTS Last administered on 05/08/19at 13:42; Start 05/08/19 at 11:45; Stop 05/08/19 at 13:52; Status DC Warfarin Sodium (Coumadin) 5 mg 1X WARF ONCE PO ; Start 05/08/19 at 16:00; Stop 05/08/19 at 13:52; Status DC Apixaban (Eliquis) 10 mg BID PO Last administered on 05/08/19at 19:57; Start 05/08/19 at 21:00; Stop 05/15/19 at 09:01 Apixaban (Eliquis) 5 mg BID PO ; Start 05/15/19 at 21:00 Non-Formulary Medication (Capecitabine (Xeloda)) 2,000 mg BIDWMEALS PO Last administered on 05/08/19at 17:49; Start 05/08/19 at 17:00 Active Scripts Active Ambien (Zolpidem Tartrate) 5 Mg Tablet 5 Mg PO PRN QHS PRN 30 Days [Nicotine 21MG] 1 PATCH Patch 1 Patch TD PRN DAILY PRN 30 Days Reported Xeloda (Capecitabine) 500 Mg Tablet 2,000 Mg PO BIDWMEALS Oxycontin (Oxycodone HCl) 20 Mg Tab.er.12h 20 Mg PO BID Pepcid (Famotidine) 40 Mg Tablet 40 Mg PO HS Compazine (Prochlorperazine Maleate) 10 Mg Tablet 10 Mg PO Q6HRS Topiramate 100 Mg Tablet 2 Tab PO BID Venlafaxine Hcl Er (Venlafaxine Hcl) 225 Mg Tab.er.24 1 Tab PO DAILY Xanax (Alprazolam) 0.5 Mg Tablet 1 Tab PO PRN BID PRN Gabapentin 600 Mg Tablet 300 Mg PO TID Levocetirizine Dihydrochloride 5 Mg Tablet 5 Mg PO HS Carvedilol (Carvedilol) 6.25 Mg Tablet 6.25 Mg PO BIDWMEALS Oxycodone Hcl Immed.release (Oxycodone Hcl) 10 Mg Tablet 10 Mg PO Q6HRS PRN Relpax (Eletriptan Hbr) 40 Mg Tablet 40 Mg PO PRN PRN Flonase Allergy Relief (Fluticasone Propionate) 9.9 Ml [place].susp 2 Sprays NS DAILY Duoneb 0.5-3(2.5) Mg/3 Ml (Albuterol/Ipratropium) 3 Ml Ampul.neb 3 Ml NEB QID Proair Hfa Inhaler (Albuterol Sulfate) 8.5 Gm Hfa.aer.ad 1 Puff INH PRN Q6HRS PRN Advair 250-50 Diskus (Fluticasone/Salmeterol) 1 Each Disk.w.dev 1 Inh IH BID Cyclobenzaprine Hcl 10 Mg Tablet 10 Mg PO TID PRN PRN Atorvastatin Calcium 40 Mg Tablet 20 Mg PO HS Singulair Tablet (Montelukast Sodium) 10 Mg Tablet 10 Mg PO HS Vitals/I & O Vital Sign - Last 24 Hours 05/08/19 05/08/19 05/08/19 05/08/19 09:00 09:00 09:09 09:33 Pulse 92 Resp 16 15 17 B/P (MAP) 103/64 (77) Pulse Ox 94 94 98 94 O2 Delivery Nasal Cannula Nasal Cannula Nasal Cannula Nasal Cannula O2 Flow Rate 2.0 2.0 2.0 2.0 05/08/19 05/08/19 05/08/19 05/08/19 09:38 10:00 11:00 11:48 Pulse 98 94 92 Resp 17 18 B/P (MAP) 103/62 111/69 (83) 121/89 (100) Pulse Ox 95 95 O2 Delivery Nasal Cannula Nasal Cannula Nasal Cannula O2 Flow Rate 2.0 2.0 2.0 05/08/19 05/08/19 05/08/19 05/08/19 11:52 12:00 12:15 12:49 Temp 98.4 98.4 Pulse 102 Resp 16 16 16 B/P (MAP) 91/60 (70) Pulse Ox 93 94 94 95 O2 Delivery Nasal Cannula Nasal Cannula Nasal Cannula Nasal Cannula O2 Flow Rate 2.0 2.0 2.0 2.0 05/08/19 05/08/19 05/08/19 05/08/19 13:00 13:40 14:00 14:21 Pulse 101 97 Resp 16 16 18 24 B/P (MAP) 85/66 (72) 106/79 (88) Pulse Ox 93 95 94 95 O2 Delivery Nasal Cannula Nasal Cannula Nasal Cannula Nasal Cannula O2 Flow Rate 2.0 2.0 2.0 2.0 05/08/19 05/08/19 05/08/19 05/08/19 15:00 15:27 15:35 15:43 Pulse 101 Resp 16 16 22 B/P (MAP) 101/63 (76) Pulse Ox 94 94 94 O2 Delivery Nasal Cannula Nasal Cannula Nasal Cannula Nasal Cannula O2 Flow Rate 2.0 2.0 2.0 2.0 05/08/19 05/08/19 05/08/19 05/08/19 15:44 16:00 16:25 17:00 Temp 98.0 98.0 Pulse 108 101 Resp 20 20 18 B/P (MAP) 112/85 (94) 90/63 (72) Pulse Ox 94 92 94 93 O2 Delivery Nasal Cannula Nasal Cannula Nasal Cannula Nasal Cannula O2 Flow Rate 2.0 2.0 2.0 2.0 05/08/19 05/08/19 05/08/19 05/08/19 17:53 18:00 19:00 19:37 Pulse 102 101 105 Resp 18 17 B/P (MAP) 94/67 102/65 (77) 103/82 (89) Pulse Ox 94 94 94 O2 Delivery Nasal Cannula Nasal Cannula Nasal Cannula O2 Flow Rate 2.0 2.0 2.0 05/08/19 05/08/19 05/08/19 05/08/19 19:59 20:00 20:00 21:00 Temp 98.4 98.4 Pulse 103 102 Resp 12 20 10 B/P (MAP) 109/74 (86) 94/76 (82) Pulse Ox 94 91 97 O2 Delivery Nasal Cannula Nasal Cannula Nasal Cannula Nasal Cannula O2 Flow Rate 2.0 2.0 2.0 3.0 05/08/19 05/08/19 05/08/19 05/08/19 22:00 22:00 23:00 23:00 Pulse 104 106 Resp 22 16 26 26 B/P (MAP) 101/75 (84) 138/83 (101) Pulse Ox 95 96 94 95 O2 Delivery Nasal Cannula Nasal Cannula Nasal Cannula Nasal Cannula O2 Flow Rate 3.0 3.0 3.0 3.0 05/08/19 05/08/19 05/09/19 05/09/19 23:59 23:59 00:00 01:00 Temp 98.0 98.0 Pulse 109 106 Resp 15 15 25 B/P (MAP) 123/74 (90) 105/80 (88) Pulse Ox 94 94 96 O2 Delivery Nasal Cannula Nasal Cannula Nasal Cannula Nasal Cannula O2 Flow Rate 3.0 3.0 3.0 3.0 05/09/19 05/09/19 05/09/19 05/09/19 02:00 03:00 04:00 04:00 Temp 98.7 98.7 Pulse 105 105 105 Resp 26 11 12 B/P (MAP) 121/75 (90) 115/78 (90) 122/79 (93) Pulse Ox 96 96 96 O2 Delivery Nasal Cannula Nasal Cannula Nasal Cannula Nasal Cannula O2 Flow Rate 3.0 3.0 3.0 3.0 05/09/19 05/09/19 05/09/19 05/09/19 05:00 05:05 06:00 07:57 Pulse 105 105 Resp 21 25 B/P (MAP) 110/69 (83) 131/66 (87) Pulse Ox 96 96 96 95 O2 Delivery Nasal Cannula Nasal Cannula Nasal Cannula Nasal Cannula O2 Flow Rate 3.0 3.0 3.0 2.0 Intake and Output 05/08/19 05/08/19 05/09/19 15:00 23:00 07:00 Intake Total 621.8 ml 340 ml 200 ml Output Total 450 ml 100 ml Balance 171.8 ml 340 ml 100 ml Nutrition Consultation Dietary Evaluation: Recommendations by RD: Increase Calorie Intake, Protein supplementation Comments: REC cardiac diet when able REC Ensure TID (vanilla w/breakfast and dinner, chocolate w/lunch) Expected Outcomes/Goals: PO intake to meet >75% est needs Interpretation of weight loss: >20% in 1 year Malnutrition Findings: Food and Nutrition Intake (Sev: <50% est energy req 5days Weight Status: Obese DEWAYNE GASPAR MD May 09, 2019 08:14
--- NOTE | 2019-05-09 09:13 | PDOC ---
PULMONARY PROGRESS NOTES Subjective MORE OF HEADACHE NOT MORE SOA Vitals Vital Signs Date Time Temp Pulse Resp B/P (MAP) Pulse Ox O2 Delivery O2 Flow Rate FiO2 05/09/19 08:11 101/68 05/09/19 07:57 95 Nasal Cannula 2.0 05/09/19 06:00 105 25 05/09/19 04:00 98.7 98.7 ROS: No Nausea, No Chest Pain, No Abdominal Pain, No Increase Cough General: Alert Lungs: Crackles Cardiovascular: S2 Abdomen: Soft, Non-tender Neuro Exam: Alert Extremities: No Edema Skin: Warm Labs Laboratory Tests Test 05/07/19 14:50 05/07/19 20:45 05/08/19 05:00 05/09/19 04:30 Heparin Anti-Xa Act, Unfractionated 0.45 IU/mL (0.30-0.70) 0.48 IU/mL (0.30-0.70) 0.67 IU/mL (0.30-0.70) Potassium Level 3.4 mmol/L (3.5-5.1) 3.6 mmol/L (3.5-5.1) White Blood Count 8.5 x10^3/uL (4.0-11.0) Red Blood Count 3.51 x10^6/uL (3.50-5.40) Hemoglobin 10.5 g/dL (12.0-15.5) Hematocrit 31.6 % (36.0-47.0) Mean Corpuscular Volume 90 fL (79-100) Mean Corpuscular Hemoglobin 30 pg (25-35) Mean Corpuscular Hemoglobin Concent 33 g/dL (31-37) Red Cell Distribution Width 16.6 % (11.5-14.5) Platelet Count 107 x10^3/uL (140-400) Neutrophils (%) (Auto) 70 % (31-73) Lymphocytes (%) (Auto) 20 % (24-48) Monocytes (%) (Auto) 7 % (0-9) Eosinophils (%) (Auto) 3 % (0-3) Basophils (%) (Auto) 0 % (0-3) Neutrophils # (Auto) 6.0 x10^3/uL (1.8-7.7) Lymphocytes # (Auto) 1.7 x10^3/uL (1.0-4.8) Monocytes # (Auto) 0.6 x10^3/uL (0.0-1.1) Eosinophils # (Auto) 0.3 x10^3/uL (0.0-0.7) Basophils # (Auto) 0.0 x10^3/uL (0.0-0.2) Sodium Level 141 mmol/L (136-145) Chloride Level 106 mmol/L (98-107) Carbon Dioxide Level 27 mmol/L (21-32) Anion Gap 8 (6-14) Blood Urea Nitrogen 7 mg/dL (7-20) Creatinine 0.7 mg/dL (0.6-1.0) Estimated GFR (Cockcroft-Gault) 88.9 Glucose Level 94 mg/dL (70-99) Calcium Level 7.6 mg/dL (8.5-10.1) Magnesium Level 2.5 mg/dL (1.8-2.4) Procalcitonin 0.10 ng/mL (0.00-0.10) Prothrombin Time 15.9 SEC (11.7-14.0) Prothromb Time International Ratio 1.3 (0.8-1.1) Laboratory Tests Test 05/09/19 04:30 Prothrombin Time 15.9 SEC (11.7-14.0) Prothromb Time International Ratio 1.3 (0.8-1.1) Medications Active Scripts Medications Dose Route/Sig Max Daily Dose Days Date Category Ambien (Zolpidem Tartrate) 5 Mg Tablet 5 Mg PO PRN QHS PRN 30 04/19/19 Rx [Nicotine 21MG] 1 PATCH Patch 1 Patch TD PRN DAILY PRN 30 04/19/19 Rx Oxycontin (Oxycodone HCl) 20 Mg Tab.er.12h 20 Mg PO BID 04/16/19 Reported Pepcid (Famotidine) 40 Mg Tablet 40 Mg PO HS 03/06/19 Reported Compazine (Prochlorperazine Maleate) 10 Mg Tablet 10 Mg PO Q6HRS 03/06/19 Reported Topiramate 100 Mg Tablet 2 Tab PO BID 03/06/19 Reported Venlafaxine Hcl Er (Venlafaxine Hcl) 225 Mg Tab.er.24 1 Tab PO DAILY 09/05/18 Reported Xanax (Alprazolam) 0.5 Mg Tablet 1 Tab PO PRN BID PRN 09/05/18 Reported Gabapentin 600 Mg Tablet 300 Mg PO TID 06/09/18 Reported Levocetirizine Dihydrochloride 5 Mg Tablet 5 Mg PO HS 03/09/18 Reported Carvedilol (Carvedilol) 6.25 Mg Tablet 6.25 Mg PO BIDWMEALS 03/09/18 Reported Oxycodone Hcl Immed.release (Oxycodone Hcl) 10 Mg Tablet 10 Mg PO Q6HRS PRN 03/09/18 Reported Relpax (Eletriptan Hbr) 40 Mg Tablet 40 Mg PO PRN PRN 08/23/17 Reported Flonase Allergy Relief (Fluticasone Propionate) 9.9 Ml [place].susp 2 Sprays NS DAILY 08/23/17 Reported Duoneb 0.5-3(2.5) Mg/3 Ml (Albuterol/Ipratropium) 3 Ml Ampul.neb 3 Ml NEB QID 08/23/17 Reported Proair Hfa Inhaler (Albuterol Sulfate) 8.5 Gm Hfa.aer.ad 1 Puff INH PRN Q6HRS PRN 08/23/17 Reported Advair 250-50 Diskus (Fluticasone/Salmeterol) 1 Each Disk.w.dev 1 Inh IH BID 08/23/17 Reported Cyclobenzaprine Hcl 10 Mg Tablet 10 Mg PO TID PRN PRN 10/31/13 Reported Atorvastatin Calcium 40 Mg Tablet 20 Mg PO HS 10/31/13 Reported Singulair Tablet (Montelukast Sodium) 10 Mg Tablet 10 Mg PO HS 10/31/13 Reported Impression . 1. Left-sided loculated pleural effusion secondary to known stage 4 breast cancer. 2. Status post previous left-sided thoracentesis for pleural effusion. 3. Stage 4 breast cancer. 4. 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 5. Bony metastases. 6. Liver metastases. 7. Tobacco dependent. 8. Suspect chronic obstructive pulmonary disease. Plan . RESP STATUS IS COMPENSATED FOLLOW NEURO INPUT ON ANTICOAGULATION UP TO CHAIR VAL PEÑA MD May 09, 2019 09:13
--- NOTE | 2019-05-09 10:02 | PDOC ---
PROGRESS NOTES Assessment Problems Medical Problems: (1) HX: breast cancer Status: Acute (2) Hypokalemia Status: Acute (3) Internal jugular vein thrombosis Status: Acute Complaining of increased headache and hearing loss Right internal jugular and sigmoid sinus thrombosis. Hypercoaguable state related to cancer? Plan Brain MRI Discussed with Dr. García, warfarin interacts with her chemotherapy, therefore we are using Apixaban in this situation Continue heparin for 2-3 more days Observe in ICU one more night Subjective Complains of increased hearing loss and swelling Objective Vital Signs Date Time Temp Pulse Resp B/P (MAP) Pulse Ox O2 Delivery O2 Flow Rate FiO2 05/09/19 08:11 101/68 05/09/19 08:00 Nasal Cannula 3.0 05/09/19 08:00 112 18 94 05/09/19 07:00 98.4 98.4 Intake and Output 05/09/19 07:00 Intake Total 1161.8 ml Output Total 550 ml Balance 611.8 ml Intake Oral 1020 ml IV Total 141.8 ml Output Urine Total 550 ml PHYSICAL EXAM Alert. Oriented to time, place and person. PERRL. EOMI. CN: no focal findings. Muscle tone: normal. Muscle strength: 5/5 DTR: 2+ Plantar reflex: flexor Gait: not examined in bed. Sensory exam: no abnormal findings. No cerebellar signs elicited. Some swelling over the right jugular Review of Relevant I have reviewed the following items danya (where applicable) has been applied. Labs Laboratory Tests Test 05/07/19 14:50 05/07/19 20:45 05/08/19 05:00 05/09/19 04:30 Heparin Anti-Xa Act, Unfractionated 0.45 IU/mL (0.30-0.70) 0.48 IU/mL (0.30-0.70) 0.67 IU/mL (0.30-0.70) Potassium Level 3.4 mmol/L (3.5-5.1) 3.6 mmol/L (3.5-5.1) White Blood Count 8.5 x10^3/uL (4.0-11.0) Red Blood Count 3.51 x10^6/uL (3.50-5.40) Hemoglobin 10.5 g/dL (12.0-15.5) Hematocrit 31.6 % (36.0-47.0) Mean Corpuscular Volume 90 fL (79-100) Mean Corpuscular Hemoglobin 30 pg (25-35) Mean Corpuscular Hemoglobin Concent 33 g/dL (31-37) Red Cell Distribution Width 16.6 % (11.5-14.5) Platelet Count 107 x10^3/uL (140-400) Neutrophils (%) (Auto) 70 % (31-73) Lymphocytes (%) (Auto) 20 % (24-48) Monocytes (%) (Auto) 7 % (0-9) Eosinophils (%) (Auto) 3 % (0-3) Basophils (%) (Auto) 0 % (0-3) Neutrophils # (Auto) 6.0 x10^3/uL (1.8-7.7) Lymphocytes # (Auto) 1.7 x10^3/uL (1.0-4.8) Monocytes # (Auto) 0.6 x10^3/uL (0.0-1.1) Eosinophils # (Auto) 0.3 x10^3/uL (0.0-0.7) Basophils # (Auto) 0.0 x10^3/uL (0.0-0.2) Sodium Level 141 mmol/L (136-145) Chloride Level 106 mmol/L (98-107) Carbon Dioxide Level 27 mmol/L (21-32) Anion Gap 8 (6-14) Blood Urea Nitrogen 7 mg/dL (7-20) Creatinine 0.7 mg/dL (0.6-1.0) Estimated GFR (Cockcroft-Gault) 88.9 Glucose Level 94 mg/dL (70-99) Calcium Level 7.6 mg/dL (8.5-10.1) Magnesium Level 2.5 mg/dL (1.8-2.4) Procalcitonin 0.10 ng/mL (0.00-0.10) Prothrombin Time 15.9 SEC (11.7-14.0) Prothromb Time International Ratio 1.3 (0.8-1.1) Laboratory Tests Test 05/09/19 04:30 Prothrombin Time 15.9 SEC (11.7-14.0) Prothromb Time International Ratio 1.3 (0.8-1.1) Medications Current Medications Sodium Chloride 1,000 ml @ 1,000 mls/hr 1X ONCE IV Last administered on 05/06/19 19:55; Start 05/06/19 at 19:00; Stop 05/06/19 at 19:59; Status DC Dexamethasone Sodium Phosphate (Decadron) 10 mg 1X ONCE IVP Last administered on 05/06/19 19:57; Start 05/06/19 at 19:30; Stop 05/06/19 at 19:38; Status DC Orphenadrine Citrate (Norflex) 60 mg 1X ONCE IV Last administered on 05/06/19 19:57; Start 05/06/19 at 19:30; Stop 05/06/19 at 19:38; Status DC Ondansetron HCl (Zofran) 4 mg 1X ONCE IVP Last administered on 05/06/19 19:57; Start 05/06/19 at 19:30; Stop 05/06/19 at 19:38; Status DC Fentanyl Citrate (Fentanyl 2ml Vial) 50 mcg 1X ONCE IVP Last administered on 05/06/19at 20:02; Start 05/06/19 at 19:30; Stop 05/06/19 at 19:38; Status DC Aspirin (Sumi Aspirin) 325 mg 1X ONCE PO Last administered on 05/06/19at 20:37; Start 05/06/19 at 20:30; Stop 05/06/19 at 20:31; Status DC Heparin Sodium (Porcine) (Heparin Sodium) 6,900 unit 1X ONCE IV Last administered on 05/06/19at 21:36; Start 05/06/19 at 21:30; Stop 05/06/19 at 21:31; Status DC Heparin Sodium/ Dextrose 500 ml @ 0 mls/hr CONT PRN IV PER PROTOCOL Last administered on 05/07/19at 20:12; Start 05/06/19 at 21:00; Stop 05/08/19 at 08:30; Status DC Heparin Sodium (Porcine) (Heparin Sodium) 2,600 unit PRN Q6HRS PRN IV FOR UFH LEVEL LESS THAN 0.2; Start 05/06/19 at 21:00; Stop 05/08/19 at 14:13; Status DC Heparin Sodium (Porcine) (Heparin Sodium) 1,300 unit PRN Q6HRS PRN IV FOR UFH LEVEL 0.2 - 0.29; Start 05/06/19 at 21:00; Stop 05/08/19 at 14:13; Status DC Ondansetron HCl (Zofran) 4 mg PRN Q8HRS PRN IV NAUSEA/VOMITING 1ST CHOICE; Start 05/06/19 at 21:00; Stop 05/07/19 at 20:59; Status DC Fentanyl Citrate (Fentanyl 2ml Vial) 50 mcg PRN Q2HRS PRN IV SEVERE PAIN 7-10 Last administered on 05/08/19at 15:43; Start 05/06/19 at 21:00 Iohexol (Omnipaque 350 Mg/ml) 100 ml 1X ONCE IV Last administered on 05/06/19 21:39; Start 05/06/19 at 21:15; Stop 05/06/19 at 21:16; Status DC Info (Anti-Coagulation Monitoring By Pharmacy) 1 each PRN DAILY PRN MC SEE COMMENTS Last administered on 05/08/19 13:10; Start 05/06/19 at 21:15 Info (CONTRAST GIVEN -- Rx MONITORING) 1 each PRN DAILY PRN MC SEE COMMENTS; Start 05/06/19 at 21:15; Stop 05/08/19 at 21:14; Status DC Albuterol Sulfate (Ventolin Neb Soln) 2.5 mg PRN Q6HRS PRN INH SHORTNESS OF BREATH; Start 05/07/19 at 09:45 Alprazolam (Xanax) 0.5 mg PRN BID PRN PO ANXIETY Last administered on 05/08/19 19:57; Start 05/07/19 at 09:45 Atorvastatin Calcium (Lipitor) 20 mg QHS PO Last administered on 05/08/19 19:57; Start 05/07/19 at 21:00 Carvedilol (Coreg) 6.25 mg BIDWMEALS PO Last administered on 05/09/19 08:11; Start 05/07/19 at 17:00 Cyclobenzaprine HCl (Flexeril) 10 mg TID PRN PRN PO MUSCLE SPASMS Last administered on 05/08/19 19:57; Start 05/07/19 at 09:45 Albuterol/ Ipratropium (Duoneb) 3 ml RTQID NEB Last administered on 05/09/19 07:57; Start 05/07/19 at 13:00 Montelukast Sodium (Singulair) 10 mg HS PO Last administered on 05/08/19 19:59; Start 05/07/19 at 21:00 Topiramate (Topamax) 200 mg BID PO Last administered on 05/09/19 08:12; Start 05/07/19 at 10:00 Zolpidem Tartrate (Ambien) 5 mg PRN QHS PRN PO INSOMNIA Last administered on 05/07/19 21:13; Start 05/07/19 at 09:45 Sumatriptan Succinate (Imitrex) 100 mg PRN Q2HR PRN PO MIGRAINE HEADACHE Last administered on 05/09/19 08:12; Start 05/07/19 at 10:15 Famotidine (Pepcid) 20 mg BID PO Last administered on 05/09/19 08:12; Start 05/07/19 at 21:00 Fluticasone Propionate (Flonase) 2 spray DAILY NS Last administered on 05/09/19 08:11; Start 05/08/19 at 09:00 Non-Formulary Medication (Fluticasone/ Salmeterol (Advair 250-50 Diskus)) 1 inh BID IH ; Start 05/07/19 at 21:00; Status UNV Gabapentin (Neurontin) 300 mg TID PO Last administered on 05/09/19 08:12; Start 05/07/19 at 14:00 Cetirizine HCl (ZyrTEC) 10 mg DAILY PO Last administered on 05/09/19 08:12; Start 05/08/19 at 09:00 Oxycodone HCl (Roxicodone) 10 mg PRN Q6HRS PRN PO PAIN Last administered on 05/09/19 05:05; Start 05/07/19 at 10:00 Oxycodone HCl (OxyCONTIN) 20 mg Q12HR PO Last administered on 05/09/19 08:12; Start 05/07/19 at 10:00 Prochlorperazine Maleate (Compazine) 10 mg PRN Q6HRS PRN PO NAUSEA/VOMITING Last administered on 05/09/19 09:46; Start 05/07/19 at 10:30 Venlafaxine HCl (Effexor Xr) 225 mg DAILY PO Last administered on 10/29/19at 09:34; Start 05/07/19 at 10:00 Nicotine (Nicoderm Cq 21mg) 1 patch PRN DAILY PRN TD SMOKING CESSATION; Start 05/08/19 at 09:00 Budesonide (Pulmicort) 0.5 mg RTBID NEB Last administered on 05/09/19at 07:56; Start 05/07/19 at 11:00 Potassium Chloride/Water 100 ml @ 100 mls/hr Q1H IV Last administered on 05/07/19at 11:04; Start 05/07/19 at 10:30; Stop 05/07/19 at 11:41; Status DC Potassium Chloride (Klor-Con) 40 meq 1X ONCE PO Last administered on 05/07/19at 11:51; Start 05/07/19 at 11:45; Stop 05/07/19 at 11:46; Status DC Apixaban (Eliquis) 10 mg BID PO Last administered on 05/08/19at 10:32; Start 05/08/19 at 10:30; Stop 05/08/19 at 11:37; Status DC Potassium Chloride (Klor-Con) 40 meq 1X ONCE PO Last administered on 05/08/19at 09:34; Start 05/08/19 at 08:00; Stop 05/08/19 at 08:03; Status DC Apixaban (Eliquis) 5 mg BID PO ; Start 05/15/19 at 09:00; Stop 05/08/19 at 11:37; Status DC Warfarin Sodium (Coumadin Per Pharmacy) 1 each PRN DAILY PRN MC SEE COMMENTS Last administered on 05/08/19at 13:42; Start 05/08/19 at 11:45; Stop 05/08/19 at 13:52; Status DC Warfarin Sodium (Coumadin) 5 mg 1X WARF ONCE PO ; Start 05/08/19 at 16:00; Stop 05/08/19 at 13:52; Status DC Apixaban (Eliquis) 10 mg BID PO Last administered on 05/09/19at 08:12; Start 05/08/19 at 21:00; Stop 05/15/19 at 09:01 Apixaban (Eliquis) 5 mg BID PO ; Start 05/15/19 at 21:00 Non-Formulary Medication (Capecitabine (Xeloda)) 2,000 mg BIDWMEALS PO Last administered on 05/09/19at 08:15; Start 05/08/19 at 17:00 Active Scripts Active Ambien (Zolpidem Tartrate) 5 Mg Tablet 5 Mg PO PRN QHS PRN 30 Days [Nicotine 21MG] 1 PATCH Patch 1 Patch TD PRN DAILY PRN 30 Days Reported Xeloda (Capecitabine) 500 Mg Tablet 2,000 Mg PO BIDWMEALS Oxycontin (Oxycodone HCl) 20 Mg Tab.er.12h 20 Mg PO BID Pepcid (Famotidine) 40 Mg Tablet 40 Mg PO HS Compazine (Prochlorperazine Maleate) 10 Mg Tablet 10 Mg PO Q6HRS Topiramate 100 Mg Tablet 2 Tab PO BID Venlafaxine Hcl Er (Venlafaxine Hcl) 225 Mg Tab.er.24 1 Tab PO DAILY Xanax (Alprazolam) 0.5 Mg Tablet 1 Tab PO PRN BID PRN Gabapentin 600 Mg Tablet 300 Mg PO TID Levocetirizine Dihydrochloride 5 Mg Tablet 5 Mg PO HS Carvedilol (Carvedilol) 6.25 Mg Tablet 6.25 Mg PO BIDWMEALS Oxycodone Hcl Immed.release (Oxycodone Hcl) 10 Mg Tablet 10 Mg PO Q6HRS PRN Relpax (Eletriptan Hbr) 40 Mg Tablet 40 Mg PO PRN PRN Flonase Allergy Relief (Fluticasone Propionate) 9.9 Ml [place].susp 2 Sprays NS DAILY Duoneb 0.5-3(2.5) Mg/3 Ml (Albuterol/Ipratropium) 3 Ml Ampul.neb 3 Ml NEB QID Proair Hfa Inhaler (Albuterol Sulfate) 8.5 Gm Hfa.aer.ad 1 Puff INH PRN Q6HRS PRN Advair 250-50 Diskus (Fluticasone/Salmeterol) 1 Each Disk.w.dev 1 Inh IH BID Cyclobenzaprine Hcl 10 Mg Tablet 10 Mg PO TID PRN PRN Atorvastatin Calcium 40 Mg Tablet 20 Mg PO HS Singulair Tablet (Montelukast Sodium) 10 Mg Tablet 10 Mg PO HS Vitals/I & O Vital Sign - Last 24 Hours 10/2905/08/19 05/08/19 05/08/19 10:00 11:00 11:48 11:52 Pulse 94 92 Resp 17 18 B/P (MAP) 111/69 (83) 121/89 (100) Pulse Ox 95 95 93 O2 Delivery Nasal Cannula Nasal Cannula Nasal Cannula Nasal Cannula O2 Flow Rate 2.0 2.0 2.0 2.0 05/08/19 05/08/19 05/08/19 05/08/19 12:00 12:15 12:49 13:00 Temp 98.4 98.4 Pulse 102 101 Resp 16 16 16 16 B/P (MAP) 91/60 (70) 85/66 (72) Pulse Ox 94 94 95 93 O2 Delivery Nasal Cannula Nasal Cannula Nasal Cannula Nasal Cannula O2 Flow Rate 2.0 2.0 2.0 2.0 05/08/19 05/08/19 05/08/19 05/08/19 13:40 14:00 14:21 15:00 Pulse 97 101 Resp 16 18 24 16 B/P (MAP) 106/79 (88) 101/63 (76) Pulse Ox 95 94 95 94 O2 Delivery Nasal Cannula Nasal Cannula Nasal Cannula Nasal Cannula O2 Flow Rate 2.0 2.0 2.0 2.0 05/08/19 05/08/19 05/08/19 05/08/19 15:27 15:35 15:43 15:44 Resp 16 22 Pulse Ox 94 94 94 O2 Delivery Nasal Cannula Nasal Cannula Nasal Cannula Nasal Cannula O2 Flow Rate 2.0 2.0 2.0 2.0 05/08/19 05/08/19 05/08/19 05/08/19 16:00 16:25 17:00 17:53 Temp 98.0 98.0 Pulse 108 101 102 Resp 20 20 18 B/P (MAP) 112/85 (94) 90/63 (72) 94/67 Pulse Ox 92 94 93 O2 Delivery Nasal Cannula Nasal Cannula Nasal Cannula O2 Flow Rate 2.0 2.0 2.0 05/08/19 05/08/19 05/08/19 05/08/19 18:00 19:00 19:37 19:59 Pulse 101 105 Resp 18 17 12 B/P (MAP) 102/65 (77) 103/82 (89) Pulse Ox 94 94 94 94 O2 Delivery Nasal Cannula Nasal Cannula Nasal Cannula Nasal Cannula O2 Flow Rate 2.0 2.0 2.0 2.0 05/08/19 05/08/19 05/08/19 05/08/19 20:00 20:00 21:00 22:00 Temp 98.4 98.4 Pulse 103 102 Resp 20 10 22 B/P (MAP) 109/74 (86) 94/76 (82) Pulse Ox 91 97 95 O2 Delivery Nasal Cannula Nasal Cannula Nasal Cannula Nasal Cannula O2 Flow Rate 2.0 2.0 3.0 3.0 05/08/19 05/08/19 05/08/19 05/08/19 22:00 23:00 23:00 23:59 Pulse 104 106 Resp 16 15 B/P (MAP) 101/75 (84) 138/83 (101) Pulse Ox 96 94 95 94 O2 Delivery Nasal Cannula Nasal Cannula Nasal Cannula Nasal Cannula O2 Flow Rate 3.0 3.0 3.0 3.0 05/08/19 05/09/19 05/09/19 05/09/19 23:59 00:00 01:00 02:00 Temp 98.0 98.0 Pulse 109 106 105 Resp 15 B/P (MAP) 123/74 (90) 105/80 (88) 121/75 (90) Pulse Ox 94 96 96 O2 Delivery Nasal Cannula Nasal Cannula Nasal Cannula Nasal Cannula O2 Flow Rate 3.0 3.0 3.0 3.0 05/09/19 05/09/19 05/09/19 05/09/19 03:00 04:00 04:00 05:00 Temp 98.7 98.7 Pulse 105 105 105 Resp 05 22 21 B/P (MAP) 115/78 (90) 122/79 (93) 110/69 (83) Pulse Ox 96 96 96 O2 Delivery Nasal Cannula Nasal Cannula Nasal Cannula Nasal Cannula O2 Flow Rate 3.0 3.0 3.0 3.0 05/09/19 05/09/19 05/09/19 05/09/19 05:05 06:00 07:00 07:57 Temp 98.4 98.4 Pulse 105 108 Resp B/P (MAP) 131/66 (87) 125/85 (98) Pulse Ox 96 96 96 95 O2 Delivery Nasal Cannula Nasal Cannula Nasal Cannula Nasal Cannula O2 Flow Rate 3.0 3.0 3.0 2.0 1005/09/19 05/09/19 08:00 08:00 08:11 Pulse 112 Resp 18 B/P (MAP) 101/68 (79) 101/68 Pulse Ox 94 O2 Delivery Nasal Cannula Nasal Cannula O2 Flow Rate 3.0 3.0 Intake and Output 05/08/19 05/08/19 05/09/19 15:00 23:00 07:00 Intake Total 621.8 ml 340 ml 200 ml Output Total 450 ml 100 ml Balance 171.8 ml 340 ml 100 ml TETO LEVINE MD May 09, 2019 10:01
[2019-05-09] MEDS: VENLAFAXINE XR 37.5 MG CAP.ER.24H. PO SCH (10:58)
--- NOTE | 2019-05-09 12:02 | NUR ---
SS following up with discharge planning. PT recommended home with assistance. Pt was previously on services with [facility], ; fax [phone]. SS will continue to follow for discharge planning.
[2019-05-09] MEDS: CYCLOBENZAPRINE 10 MG TABLET. PO PRN ×2 (12:23→22:09)
[2019-05-09] MEDS ORDERED: GADOTERATE 7.5 MMOL/15ML VIAL. IVP ONE (13:45)
--- NOTE | 2019-05-09 16:27 | RAD ---
MRI Brain with and without contrast History: Increasing pain and hearing loss, history of breast cancer Technique: Multiplanar, multi sequential pre and postcontrast MR imaging was performed of the brain. Comparison: February 08, 2019 MRI brain exam Findings: There is now prominent fluid of the right mastoid air cells. There is now abnormal signal in the right sigmoid sinus and jugular bulb as well as distal right transverse sinus associated with peripheral enhancement. There is also some fluid in the right middle ear cavity. There is no evidence of recent infarct. There is no new midline shift. Ventricular size is within normal limits. Previously seen scattered mild T2 and FLAIR hyperintense signal of the supratentorial parenchyma is similar. There is small focus of signal change left cerebellum probably sequela of old lacunar infarct as seen previously. There is some increased CSF signal of the optic nerve sheaths bilaterally as seen previously. There is small right sphenoid sinus mucous retention cyst. There is now air-fluid level of the left maxillary sinus, also apparently on right with adjacent mucosal thickening. Left mastoid air cells are aerated. There is preservation of the major arterial intracranial flow voids at the skull base. There is again heterogeneous signal of the marrow of the clivus. Impression: 1. There is no evidence of recent infarct. There is now prominent fluid of the right mastoid air cells of uncertain sterility, also some fluid in the right middle ear cavity. There is now abnormal signal in the distal right transverse sinus as well as sigmoid sinus and right internal jugular bulb, evidence of occlusive venous thrombus. 2. There are some air-fluid levels of the maxillary sinuses as may be seen with acute sinusitis. 3. There is similar scattered minimal T2 and FLAIR hyperintense signal of the supratentorial parenchyma, may be due to nonspecific gliosis. 4. There is again heterogeneous signal of the clivus concerning for metastatic disease given history. Electronically signed by: Bassem Valente MD (05/09/2019 4:24 PM) [id number]
[2019-05-09] MEDS: ATORVASTATIN CALCIUM 20 MG TABLET PO SCH (22:10)
[2019-05-09] MEDS: MONTELUKAST SODIUM 10 MG TABLET. PO SCH (22:11)
[2019-05-10] VITALS (13 sets, daily range): BP systolic 86–119; BP diastolic 56–76
[2019-05-10 00:11] LABS: BILIRUBIN,URINE NEGATIVE (NEG); CLARITY,URINE CLEAR; COLOR,URINE YELLOW; NITRITE,URINE NEGATIVE (NEG); PH,URINE 6.5; PROTEIN,URINE NEGATIVE (NEG-TRACE)
[2019-05-10 00:36] LABS: AMORPHOUS SEDIMENT,UR PRESENT /HPF; BACTERIA,URINE 0 /HPF (0-FEW); RBC,URINE 0 /HPF (0-2); SQUAMOUS EPITHELIAL CELL,UR FEW /LPF; WBC,URINE OCC /HPF (0-4)
[2019-05-10] MEDS: oxyCODONE ER 10 MG TAB.ER.12H PO SCH ×3 (00:40→21:36)
--- NOTE | 2019-05-10 07:39 | PDOC ---
PROGRESS NOTES Chief Complaint Chief Complaint A/P: Hyperdense appearance of the right sigmoid sinus, strongly favored to represent dural venous thrombosis - confirmatory MRV given her symptoms. Cont anticoagulat ion for now. Given interactions with warfarin and xeloda, will opt to give eliquis Anemia - Likely related to active cancer, will monitor Hypoxic respiratory failure - possibly related to pleural effusion. Breath sounds absent on left Hypotension - will monitor Hypokalemia - replaced oral, will monitor Metastatic breast cancer - triple negative, has an overall poor prognosis and lawrence s had a bad year, likely her clot is related to active malignancy. Will consult heme/onc for advice on both. Expanded appearance of the right internal jugular vein which could reflect thrombus. Ultrasound confirmed this. Continue anticoagulation Heterogenous sclerotic appearance of the osseous structures. Correlate with cancer history for osseous metastatic disease. Left pleural effusion - this is recurrent, had a thoracentesis previously this month. malignant. Anxiety with depression - will cont meds Asthma - will cont inhalers Smoker - nicotine patch SEVERE PROTEIN CALORIE MALNUTRITION - almost certainly 2/2 active cancer. Nutritional supplements, dietitician to see Confusion - benzos, topiramate, gabapentin, and opioids can all cause this FEN - General diet PPX - heparin --> Eliquis FULL CODE Dispo - ICU for thrombus, will Cont ICU for now History of Present Illness History of Present Illness Ms Rausch is a 49-year-old female with past medical history of breast cancer with metastasis to bone and liver, asthma, migraines, smoker who presents with 2-3 day history of right neck pain, headache, facial swelling and numbness, and decreased hearing on right side. Recently seen by Dr. Garcia (oncology) on Tuesday for symptoms and treated for muscle tension. She was found with concerning CT head for right venous sinus thrombosis and found with complete left jugular occlusion on neck ultrasound, started on heparin GTT and admitted for further care. 05/08: MRV confirmed likely sinus thrombosis. Her symptoms improved with heparin GTT. Still very dizzy and lightheaded. Still on NCO2. Seen by pulmonology. D/w heme/onc that coumadin would interfere with her treatment regimen and opted for initiating eliquis. Hearing loss is still a symptom today. Right sided headache worse. Significant other concerned about confusion. I have advised benzos, topiramate, gabapentin, and opioids can all cause this. MRI brain shows no acute CVA, but does indicate right sinus air-fluid levels and right middle ear effusion. She has been dizzy, wants further gait evaluation Plan: Can downgrade to med tele Consulted pulm for hypoxia, decreased left sided breath sounds - will need f/u of known left malignant pleural effusion Transition to eliquis 10mg BID for 7 days, then 5mg BID Middle ear effusion needs monitoring Vitals Vitals Vital Signs Date Time Temp Pulse Resp B/P (MAP) Pulse Ox O2 Delivery O2 Flow Rate FiO2 05/10/19 06:00 115 13 101/68 (79) 95 Nasal Cannula 4.0 05/10/19 05:00 99.3 99.3 Physical Exam General: Alert, Cooperative Heart: Normal S1, Normal S2 Lungs: Crackles Abdomen: Normal bowel sounds, Soft, No tenderness, No hepatosplenomegaly, No masses Extremities: No clubbing, No cyanosis, No edema, Normal pulses, No tenderness/swelling Skin: No rashes, No breakdown, No significant lesion Labs LABS Laboratory Tests Test 05/09/19 22:30 Urine Collection Type U cath Urine Color Yellow Urine Clarity Clear Urine pH 6.5 Urine Specific [place]ayson 1.010 Urine Protein Negative mg/dL (NEG-TRACE) Urine Glucose (UA) Negative mg/dL (NEG) Urine Ketones (Stick) Negative mg/dL (NEG) Urine Blood Negative (NEG) Urine Nitrite Negative (NEG) Urine Bilirubin Negative (NEG) Urine Urobilinogen Dipstick 1.0 mg/dL (0.2 mg/dL) Urine Leukocyte Esterase Negative (NEG) Urine RBC 0 /HPF (0-2) Urine WBC Occ /HPF (0-4) Urine Squamous Epithelial Cells Few /LPF Urine Amorphous Sediment Present /HPF Urine Bacteria 0 /HPF (0-FEW) Urine Mucus Slight /LPF Assessment and Plan Assessmemt and Plan Problems Medical Problems: (1) HX: breast cancer Status: Acute (2) Hypokalemia Status: Acute (3) Internal jugular vein thrombosis Status: Acute Comment Review of Relevant I have reviewed the following items danya (where applicable) has been applied. Labs Laboratory Tests Test 05/09/19 04:30 05/09/19 22:30 Prothrombin Time 15.9 SEC (11.7-14.0) Prothromb Time International Ratio 1.3 (0.8-1.1) Urine Collection Type U cath Urine Color Yellow Urine Clarity Clear Urine pH 6.5 Urine Specific [place] 1.010 Urine Protein Negative mg/dL (NEG-TRACE) Urine Glucose (UA) Negative mg/dL (NEG) Urine Ketones (Stick) Negative mg/dL (NEG) Urine Blood Negative (NEG) Urine Nitrite Negative (NEG) Urine Bilirubin Negative (NEG) Urine Urobilinogen Dipstick 1.0 mg/dL (0.2 mg/dL) Urine Leukocyte Esterase Negative (NEG) Urine RBC 0 /HPF (0-2) Urine WBC Occ /HPF (0-4) Urine Squamous Epithelial Cells Few /LPF Urine Amorphous Sediment Present /HPF Urine Bacteria 0 /HPF (0-FEW) Urine Mucus Slight /LPF Laboratory Tests Test 05/09/19 22:30 Urine Collection Type U cath Urine Color Yellow Urine Clarity Clear Urine pH 6.5 Urine Specific [place] 1.010 Urine Protein Negative mg/dL (NEG-TRACE) Urine Glucose (UA) Negative mg/dL (NEG) Urine Ketones (Stick) Negative mg/dL (NEG) Urine Blood Negative (NEG) Urine Nitrite Negative (NEG) Urine Bilirubin Negative (NEG) Urine Urobilinogen Dipstick 1.0 mg/dL (0.2 mg/dL) Urine Leukocyte Esterase Negative (NEG) Urine RBC 0 /HPF (0-2) Urine WBC Occ /HPF (0-4) Urine Squamous Epithelial Cells Few /LPF Urine Amorphous Sediment Present /HPF Urine Bacteria 0 /HPF (0-FEW) Urine Mucus Slight /LPF Medications Current Medications Sodium Chloride 1,000 ml @ 1,000 mls/hr 1X ONCE IV Last administered on 05/06/19at 19:55; Start 05/06/19 at 19:00; Stop 05/06/19 at 19:59; Status DC Dexamethasone Sodium Phosphate (Decadron) 10 mg 1X ONCE IVP Last administered on 05/06/19 19:57; Start 05/06/19 at 19:30; Stop 05/06/19 at 19:38; Status DC Orphenadrine Citrate (Norflex) 60 mg 1X ONCE IV Last administered on 05/06/19at 19:57; Start 05/06/19 at 19:30; Stop 05/06/19 at 19:38; Status DC Ondansetron HCl (Zofran) 4 mg 1X ONCE IVP Last administered on 05/06/19at 19:57; Start 05/06/19 at 19:30; Stop 05/06/19 at 19:38; Status DC Fentanyl Citrate (Fentanyl 2ml Vial) 50 mcg 1X ONCE IVP Last administered on 05/06/19at 20:02; Start 05/06/19 at 19:30; Stop 05/06/19 at 19:38; Status DC Aspirin (Sumi Aspirin) 325 mg 1X ONCE PO Last administered on 05/06/19at 20:37; Start 05/06/19 at 20:30; Stop 05/06/19 at 20:31; Status DC Heparin Sodium (Porcine) (Heparin Sodium) 6,900 unit 1X ONCE IV Last administered on 05/06/19at 21:36; Start 05/06/19 at 21:30; Stop 05/06/19 at 21:31; Status DC Heparin Sodium/ Dextrose 500 ml @ 0 mls/hr CONT PRN IV PER PROTOCOL Last administered on 05/07/19at 20:12; Start 05/06/19 at 21:00; Stop 05/08/19 at 08:30; Status DC Heparin Sodium (Porcine) (Heparin Sodium) 2,600 unit PRN Q6HRS PRN IV FOR UFH LEVEL LESS THAN 0.2; Start 05/06/19 at 21:00; Stop 05/08/19 at 14:13; Status DC Heparin Sodium (Porcine) (Heparin Sodium) 1,300 unit PRN Q6HRS PRN IV FOR UFH LEVEL 0.2 - 0.29; Start 05/06/19 at 21:00; Stop 05/08/19 at 14:13; Status DC Ondansetron HCl (Zofran) 4 mg PRN Q8HRS PRN IV NAUSEA/VOMITING 1ST CHOICE; Start 05/06/19 at 21:00; Stop 05/07/19 at 20:59; Status DC Fentanyl Citrate (Fentanyl 2ml Vial) 50 mcg PRN Q2HRS PRN IV SEVERE PAIN 7-10 Last administered on 05/08/19at 15:43; Start 05/06/19 at 21:00 Iohexol (Omnipaque 350 Mg/ml) 100 ml 1X ONCE IV Last administered on 05/06/19at 21:39; Start 05/06/19 at 21:15; Stop 05/06/19 at 21:16; Status DC Info (Anti-Coagulation Monitoring By Pharmacy) 1 each PRN DAILY PRN MC SEE COMMENTS Last administered on 05/08/19 13:10; Start 05/06/19 at 21:15 Info (CONTRAST GIVEN -- Rx MONITORING) 1 each PRN DAILY PRN MC SEE COMMENTS; Start 05/06/19 at 21:15; Stop 05/08/19 at 21:14; Status DC Albuterol Sulfate (Ventolin Neb Soln) 2.5 mg PRN Q6HRS PRN INH SHORTNESS OF BREATH; Start 05/07/19 at 09:45 Alprazolam (Xanax) 0.5 mg PRN BID PRN PO ANXIETY Last administered on 05/08 19:57; Start 05/07/19 at 09:45 Atorvastatin Calcium (Lipitor) 20 mg QHS PO Last administered on 05/09/19 22:10; Start 05/07/19 at 21:00 Carvedilol (Coreg) 6.25 mg BIDWMEALS PO Last administered on 05/09/19 17:19; Start 05/07/19 at 17:00 Cyclobenzaprine HCl (Flexeril) 10 mg TID PRN PRN PO MUSCLE SPASMS Last administered on 05/09/19 22:09; Start 05/07/19 at 09:45 Albuterol/ Ipratropium (Duoneb) 3 ml RTQID NEB Last administered on 05/09/19 19:35; Start 05/07/19 at 13:00 Montelukast Sodium (Singulair) 10 mg HS PO Last administered on 05/09/19 22:11; Start 05/07/19 at 21:00 Topiramate (Topamax) 200 mg BID PO Last administered on 05/09/19 22:09; Start 05/07/19 at 10:00 Zolpidem Tartrate (Ambien) 5 mg PRN QHS PRN PO INSOMNIA Last administered on 05/07/19 21:13; Start 05/07/19 at 09:45 Sumatriptan Succinate (Imitrex) 100 mg PRN Q2HR PRN PO MIGRAINE HEADACHE Last administered on 05/09/19 22:10; Start 05/07/19 at 10:15 Famotidine (Pepcid) 20 mg BID PO Last administered on 05/09/19 22:10; Start 05/07/19 at 21:00 Fluticasone Propionate (Flonase) 2 spray DAILY NS Last administered on 05/09/19 08:11; Start 05/08/19 at 09:00 Non-Formulary Medication (Fluticasone/ Salmeterol (Advair 250-50 Diskus)) 1 inh BID IH ; Start 05/07/19 at 21:00; Status UNV Gabapentin (Neurontin) 300 mg TID PO Last administered on 05/09/19 22:10; Start 05/07/19 at 14:00 Cetirizine HCl (ZyrTEC) 10 mg DAILY PO Last administered on 05/09/19 08:12; Start 05/08/19 at 09:00 Oxycodone HCl (Roxicodone) 10 mg PRN Q6HRS PRN PO PAIN Last administered on 05/09/19 22:10; Start 05/07/19 at 10:00 Oxycodone HCl (OxyCONTIN) 20 mg Q12HR PO Last administered on 05/10/19 00:40; Start 05/07/19 at 10:00 Prochlorperazine Maleate (Compazine) 10 mg PRN Q6HRS PRN PO NAUSEA/VOMITING Last administered on 05/09/19 09:46; Start 05/07/19 at 10:30 Venlafaxine HCl (Effexor Xr) 225 mg DAILY PO Last administered on 05/09/19 10:58; Start 05/07/19 at 10:00 Nicotine (Nicoderm Cq 21mg) 1 patch PRN DAILY PRN TD SMOKING CESSATION; Start 05/08/19 at 09:00 Budesonide (Pulmicort) 0.5 mg RTBID NEB Last administered on 05/09/19 19:35; Start 05/07/19 at 11:00 Potassium Chloride/Water 100 ml @ 100 mls/hr Q1H IV Last administered on 05/07/19at 11:04; Start 05/07/19 at 10:30; Stop 05/07/19 at 11:41; Status DC Potassium Chloride (Klor-Con) 40 meq 1X ONCE PO Last administered on 05/07/19at 11:51; Start 05/07/19 at 11:45; Stop 05/07/19 at 11:46; Status DC Apixaban (Eliquis) 10 mg BID PO Last administered on 05/08/19at 10:32; Start 05/08/19 at 10:30; Stop 05/08/19 at 11:37; Status DC Potassium Chloride (Klor-Con) 40 meq 1X ONCE PO Last administered on 05/08/19at 09:34; Start 05/08/19 at 08:00; Stop 05/08/19 at 08:03; Status DC Apixaban (Eliquis) 5 mg BID PO ; Start 05/15/19 at 09:00; Stop 05/08/19 at 11:37; Status DC Warfarin Sodium (Coumadin Per Pharmacy) 1 each PRN DAILY PRN MC SEE COMMENTS Last administered on 05/08/19at 13:42; Start 05/08/19 at 11:45; Stop 05/08/19 at 13:52; Status DC Warfarin Sodium (Coumadin) 5 mg 1X WARF ONCE PO ; Start 05/08/19 at 16:00; Stop 05/08/19 at 13:52; Status DC Apixaban (Eliquis) 10 mg BID PO Last administered on 05/09/19at 22:09; Start 05/08/19 at 21:00; Stop 05/15/19 at 09:01 Apixaban (Eliquis) 5 mg BID PO ; Start 05/15/19 at 21:00 Non-Formulary Medication (Capecitabine (Xeloda)) 2,000 mg BIDWMEALS PO Last administered on 05/09/19at 17:16; Start 05/08/19 at 17:00 Gadoterate Meglumine (Dotarem) 15 ml 1X ONCE IVP Last administered on 05/09/19at 13:45; Start 05/09/19 at 13:45; Stop 05/09/19 at 13:46; Status DC Active Scripts Active Ambien (Zolpidem Tartrate) 5 Mg Tablet 5 Mg PO PRN QHS PRN 30 Days [Nicotine 21MG] 1 PATCH Patch 1 Patch TD PRN DAILY PRN 30 Days Reported Xeloda (Capecitabine) 500 Mg Tablet 2,000 Mg PO BIDWMEALS Oxycontin (Oxycodone HCl) 20 Mg Tab.er.12h 20 Mg PO BID Pepcid (Famotidine) 40 Mg Tablet 40 Mg PO HS Compazine (Prochlorperazine Maleate) 10 Mg Tablet 10 Mg PO Q6HRS Topiramate 100 Mg Tablet 2 Tab PO BID Venlafaxine Hcl Er (Venlafaxine Hcl) 225 Mg Tab.er.24 1 Tab PO DAILY Xanax (Alprazolam) 0.5 Mg Tablet 1 Tab PO PRN BID PRN Gabapentin 600 Mg Tablet 300 Mg PO TID Levocetirizine Dihydrochloride 5 Mg Tablet 5 Mg PO HS Carvedilol (Carvedilol) 6.25 Mg Tablet 6.25 Mg PO BIDWMEALS Oxycodone Hcl Immed.release (Oxycodone Hcl) 10 Mg Tablet 10 Mg PO Q6HRS PRN Relpax (Eletriptan Hbr) 40 Mg Tablet 40 Mg PO PRN PRN Flonase Allergy Relief (Fluticasone Propionate) 9.9 Ml [place].susp 2 Sprays NS DAILY Duoneb 0.5-3(2.5) Mg/3 Ml (Albuterol/Ipratropium) 3 Ml Ampul.neb 3 Ml NEB QID Proair Hfa Inhaler (Albuterol Sulfate) 8.5 Gm Hfa.aer.ad 1 Puff INH PRN Q6HRS PRN Advair 250-50 Diskus (Fluticasone/Salmeterol) 1 Each Disk.w.dev 1 Inh IH BID Cyclobenzaprine Hcl 10 Mg Tablet 10 Mg PO TID PRN PRN Atorvastatin Calcium 40 Mg Tablet 20 Mg PO HS Singulair Tablet (Montelukast Sodium) 10 Mg Tablet 10 Mg PO HS Vitals/I & O Vital Sign - Last 24 Hours 05/09/19 05/09/19 05/09/19 05/09/19 07:57 08:00 08:00 08:11 Pulse 112 Resp 18 B/P (MAP) 101/68 (79) 101/68 Pulse Ox 95 94 O2 Delivery Nasal Cannula Nasal Cannula Nasal Cannula O2 Flow Rate 2.0 3.0 3.0 05/09/19 05/09/19 05/09/19 05/09/19 09:00 10:00 11:00 11:42 Pulse 108 108 104 Resp 27 27 21 B/P (MAP) 95/67 (76) 106/71 (83) Pulse Ox 96 96 94 96 O2 Delivery Nasal Cannula Nasal Cannula Nasal Cannula Nasal Cannula O2 Flow Rate 3.0 3.0 3.0 2.0 05/09/19 05/09/19 05/09/19 05/09/19 12:00 12:00 13:00 14:00 Temp 98.6 98.6 Pulse 108 106 106 Resp 32 22 16 B/P (MAP) 81/63 (69) 82/63 (69) Pulse Ox 92 93 92 O2 Delivery Nasal Cannula Nasal Cannula Nasal Cannula Nasal Cannula O2 Flow Rate 3.0 3.0 3.0 3.0 05/09/19 05/09/19 05/09/19 05/09/19 15:00 15:27 16:00 16:00 Temp 98.5 98.5 Pulse 110 110 Resp 31 21 B/P (MAP) 99/91 (94) 120/69 (86) Pulse Ox 90 96 92 O2 Delivery Nasal Cannula Nasal Cannula Nasal Cannula Nasal Cannula O2 Flow Rate 3.0 2.0 3.0 3.0 05/09/19 05/09/19 05/09/19 05/09/19 17:00 17:19 18:00 19:00 Pulse 111 111 112 112 Resp 24 17 23 B/P (MAP) 103/67 (79) 103/65 106/59 (75) 109/74 (86) Pulse Ox 94 95 93 O2 Delivery Nasal Cannula Nasal Cannula Nasal Cannula O2 Flow Rate 3.0 3.0 3.0 05/09/19 05/09/19 05/09/19 05/09/19 19:35 20:00 20:00 21:00 Temp 98.4 98.4 Pulse 110 111 Resp 23 23 B/P (MAP) 118/92 (101) 118/71 (87) Pulse Ox 94 93 91 O2 Delivery Nasal Cannula Nasal Cannula Nasal Cannula Nasal Cannula O2 Flow Rate 2.0 3.0 2.0 3.0 05/09/19 05/09/19 05/09/19 05/09/19 22:00 22:10 23:00 23:10 Pulse 113 111 Resp 23 32 33 32 B/P (MAP) 84/61 (69) 130/107 (115) Pulse Ox 91 94 91 95 O2 Delivery Nasal Cannula Nasal Cannula Nasal Cannula Nasal Cannula O2 Flow Rate 3.0 2.0 4.0 4.0 05/09/19 05/10/19 05/10/19 05/10/19 23:59 00:01 00:40 01:00 Temp 100.9 100.9 Pulse 111 113 Resp 22 26 26 B/P (MAP) 109/76 (87) 86/66 (73) Pulse Ox 94 94 95 O2 Delivery Nasal Cannula Nasal Cannula Nasal Cannula Nasal Cannula O2 Flow Rate 4.0 4.0 2.0 4.0 05/10/19 05/10/19 05/10/19 05/10/19 02:00 03:00 04:00 04:00 Temp 99.3 99.3 Pulse 114 117 117 Resp 23 23 23 B/P (MAP) 95/60 (72) 116/72 (87) 103/63 (76) Pulse Ox 94 95 95 O2 Delivery Nasal Cannula Nasal Cannula Nasal Cannula Nasal Cannula O2 Flow Rate 4.0 4.0 4.0 4.0 05/10/19 05/10/19 05/10/19 04:40 05:00 06:00 Temp 99.3 99.3 Pulse 117 115 Resp 12 23 13 B/P (MAP) 116/72 (87) 101/68 (79) Pulse Ox 95 95 95 O2 Delivery Nasal Cannula Nasal Cannula Nasal Cannula O2 Flow Rate 4.0 4.0 4.0 Intake and Output 05/09/19 05/09/19 05/10/19 15:00 23:00 07:00 Intake Total 200 ml 300 ml Output Total 60 ml 935 ml 310 ml Balance 140 ml -635 ml -310 ml Nutrition Consultation Dietary Evaluation: Recommendations by RD: Increase Calorie Intake, Protein supplementation Comments: REC cardiac diet when able REC Ensure TID (vanilla w/breakfast and dinner, chocolate w/lunch) Expected Outcomes/Goals: PO intake to meet >75% est needs Interpretation of weight loss: >20% in 1 year Malnutrition Findings: Food and Nutrition Intake (Sev: <50% est energy req 5days Weight Status: Obese DEWAYNE GASPAR MD May 10, 2019 07:39
[2019-05-10] MEDS: BUDESONIDE 0.5 MG/2 ML NEBU. NEB SCH ×2 (07:41→20:14)
[2019-05-10] MEDS: IPRATRPIUM/ALBUTEROL 0.5/2.5MG 3 ML NEBU. NEB SCH ×4 (07:41→20:12)
[2019-05-10 07:45] LABS: PROTHROMBIN TIME PATIENT 24.2 SEC (11.7-14.0)
[2019-05-10] MEDS: GABAPENTIN 300 MG CAPSULE. PO SCH ×3 (08:16→21:37)
[2019-05-10] MEDS: CETIRIZINE HCL 10 MG TABLET. PO SCH (08:17)
[2019-05-10] MEDS: APIXABAN 5 MG TABLET. PO SCH ×2 (08:17→21:37)
[2019-05-10] MEDS: TOPIRAMATE 100 MG TABLET. PO SCH ×2 (08:17→21:36)
[2019-05-10] MEDS: FAMOTIDINE 20 MG TABLET. PO SCH ×2 (08:17→21:35)
[2019-05-10] MEDS: FLUTICASONE 50MCG/NASAL SPRAY 16GM BOTTLE. NS SCH (08:18)
[2019-05-10] MEDS: CARVEDILOL 6.25 MG TABLET. PO SCH ×2 (08:18→16:59)
[2019-05-10] MEDS: VENLAFAXINE 75 MG TABLET. PO SCH ×3 (08:38→21:37)
--- NOTE | 2019-05-10 10:22 | PDOC ---
PROGRESS NOTES Assessment Problems Medical Problems: (1) HX: breast cancer Status: Acute (2) Hypokalemia Status: Acute (3) Internal jugular vein thrombosis Status: Acute Headache and hearing loss are better, MRI negative Right internal jugular and sigmoid sinus thrombosis. Hypercoaguable state related to cancer? Clivus lesion on MRI Plan Apixaban Continue heparin for 1-2 more days Transfer to medical floor Subjective feels better Objective Vital Signs Date Time Temp Pulse Resp B/P (MAP) Pulse Ox O2 Delivery O2 Flow Rate FiO2 05/10/19 09:00 118 32 90/56 (67) 94 Nasal Cannula 4.0 05/10/19 08:00 99.9 99.9 Intake and Output 05/10/19 07:00 Intake Total 500 ml Output Total 1305 ml Balance -805 ml Intake Oral 500 ml Output Urine Total 1245 ml Oral Regurgitation 60 ml # Voids 2 PHYSICAL EXAM Alert. Oriented to time, place and person. PERRL. EOMI. CN: no focal findings. Muscle tone: normal. Muscle strength: 5/5 DTR: 2+ Plantar reflex: flexor Gait: not examined in bed. Sensory exam: no abnormal findings. No cerebellar signs elicited. Some swelling over the right jugular Review of Relevant I have reviewed the following items danya (where applicable) has been applied. Labs Laboratory Tests Test 05/09/19 04:30 05/09/19 22:30 05/10/19 07:00 Prothrombin Time 15.9 SEC (11.7-14.0) 24.2 SEC (11.7-14.0) Prothromb Time International Ratio 1.3 (0.8-1.1) 2.2 (0.8-1.1) Urine Collection Type U cath Urine Color Yellow Urine Clarity Clear Urine pH 6.[address] 1.010 Urine Protein Negative mg/dL (NEG-TRACE) Urine Glucose (UA) Negative mg/dL (NEG) Urine Ketones (Stick) Negative mg/dL (NEG) Urine Blood Negative (NEG) Urine Nitrite Negative (NEG) Urine Bilirubin Negative (NEG) Urine Urobilinogen Dipstick 1.0 mg/dL (0.2 mg/dL) Urine Leukocyte Esterase Negative (NEG) Urine RBC 0 /HPF (0-2) Urine WBC Occ /HPF (0-4) Urine Squamous Epithelial Cells Few /LPF Urine Amorphous Sediment Present /HPF Urine Bacteria 0 /HPF (0-FEW) Urine Mucus Slight /LPF Laboratory Tests Test 05/09/19 22:30 05/10/19 07:00 Urine Collection Type U cath Urine Color Yellow Urine Clarity Clear Urine pH 6.[address] 1.010 Urine Protein Negative mg/dL (NEG-TRACE) Urine Glucose (UA) Negative mg/dL (NEG) Urine Ketones (Stick) Negative mg/dL (NEG) Urine Blood Negative (NEG) Urine Nitrite Negative (NEG) Urine Bilirubin Negative (NEG) Urine Urobilinogen Dipstick 1.0 mg/dL (0.2 mg/dL) Urine Leukocyte Esterase Negative (NEG) Urine RBC 0 /HPF (0-2) Urine WBC Occ /HPF (0-4) Urine Squamous Epithelial Cells Few /LPF Urine Amorphous Sediment Present /HPF Urine Bacteria 0 /HPF (0-FEW) Urine Mucus Slight /LPF Prothrombin Time 24.2 SEC (11.7-14.0) Prothromb Time International Ratio 2.2 (0.8-1.1) Medications Current Medications Sodium Chloride 1,000 ml @ 1,000 mls/hr 1X ONCE IV Last administered on 05/06/19 19:55; Start 05/06/19 at 19:00; Stop 05/06/19 at 19:59; Status DC Dexamethasone Sodium Phosphate (Decadron) 10 mg 1X ONCE IVP Last administered on 05/06/19 19:57; Start 05/06/19 at 19:30; Stop 05/06/19 at 19:38; Status DC Orphenadrine Citrate (Norflex) 60 mg 1X ONCE IV Last administered on 05/06/19 19:57; Start 05/06/19 at 19:30; Stop 05/06/19 at 19:38; Status DC Ondansetron HCl (Zofran) 4 mg 1X ONCE IVP Last administered on 05/06/19 19:57; Start 05/06/19 at 19:30; Stop 05/06/19 at 19:38; Status DC Fentanyl Citrate (Fentanyl 2ml Vial) 50 mcg 1X ONCE IVP Last administered on 05/06/19 20:02; Start 05/06/19 at 19:30; Stop 05/06/19 at 19:38; Status DC Aspirin (Sumi Aspirin) 325 mg 1X ONCE PO Last administered on 10/27/19at 20:37; Start 05/06/19 at 20:30; Stop 05/06/19 at 20:31; Status DC Heparin Sodium (Porcine) (Heparin Sodium) 6,900 unit 1X ONCE IV Last administered on 05/06/19at 21:36; Start 05/06/19 at 21:30; Stop 05/06/19 at 21:31; Status DC Heparin Sodium/ Dextrose 500 ml @ 0 mls/hr CONT PRN IV PER PROTOCOL Last administered on 05/07/19at 20:12; Start 05/06/19 at 21:00; Stop 05/08/19 at 08:30; Status DC Heparin Sodium (Porcine) (Heparin Sodium) 2,600 unit PRN Q6HRS PRN IV FOR UFH LEVEL LESS THAN 0.2; Start 05/06/19 at 21:00; Stop 05/08/19 at 14:13; Status DC Heparin Sodium (Porcine) (Heparin Sodium) 1,300 unit PRN Q6HRS PRN IV FOR UFH LEVEL 0.2 - 0.29; Start 05/06/19 at 21:00; Stop 05/08/19 at 14:13; Status DC Ondansetron HCl (Zofran) 4 mg PRN Q8HRS PRN IV NAUSEA/VOMITING 1ST CHOICE; Start 05/06/19 at 21:00; Stop 05/07/19 at 20:59; Status DC Fentanyl Citrate (Fentanyl 2ml Vial) 50 mcg PRN Q2HRS PRN IV SEVERE PAIN 7-10 Last administered on 05/08/19at 15:43; Start 05/06/19 at 21:00 Iohexol (Omnipaque 350 Mg/ml) 100 ml 1X ONCE IV Last administered on 05/06/19at 21:39; Start 05/06/19 at 21:15; Stop 05/06/19 at 21:16; Status DC Info (Anti-Coagulation Monitoring By Pharmacy) 1 each PRN DAILY PRN MC SEE COMMENTS Last administered on 05/08/19at 13:10; Start 05/06/19 at 21:15 Info (CONTRAST GIVEN -- Rx MONITORING) 1 each PRN DAILY PRN MC SEE COMMENTS; Start 05/06/19 at 21:15; Stop 05/08/19 at 21:14; Status DC Albuterol Sulfate (Ventolin Neb Soln) 2.5 mg PRN Q6HRS PRN INH SHORTNESS OF BREATH; Start 05/07/19 at 09:45 Alprazolam (Xanax) 0.5 mg PRN BID PRN PO ANXIETY Last administered on 05/08/19 19:57; Start 05/07/19 at 09:45 Atorvastatin Calcium (Lipitor) 20 mg QHS PO Last administered on 05/09/19 22:10; Start 05/07/19 at 21:00 Carvedilol (Coreg) 6.25 mg BIDWMEALS PO Last administered on 05/10/19 08:18; Start 05/07/19 at 17:00 Cyclobenzaprine HCl (Flexeril) 10 mg TID PRN PRN PO MUSCLE SPASMS Last administered on 05/09/19 22:09; Start 05/07/19 at 09:45 Albuterol/ Ipratropium (Duoneb) 3 ml RTQID NEB Last administered on 05/10/19 07:41; Start 05/07/19 at 13:00 Montelukast Sodium (Singulair) 10 mg HS PO Last administered on 05/09/19 22:11; Start 05/07/19 at 21:00 Topiramate (Topamax) 200 mg BID PO Last administered on 05/10/19 08:17; Start 05/07/19 at 10:00 Zolpidem Tartrate (Ambien) 5 mg PRN QHS PRN PO INSOMNIA Last administered on 05/07/19 21:13; Start 05/07/19 at 09:45 Sumatriptan Succinate (Imitrex) 100 mg PRN Q2HR PRN PO MIGRAINE HEADACHE Last administered on 05/09/19 22:10; Start 05/07/19 at 10:15 Famotidine (Pepcid) 20 mg BID PO Last administered on 05/10/19 08:17; Start 05/07/19 at 21:00 Fluticasone Propionate (Flonase) 2 spray DAILY NS Last administered on 05/10/19 08:18; Start 05/08/19 at 09:00 Non-Formulary Medication (Fluticasone/ Salmeterol (Advair 250-50 Diskus)) 1 inh BID IH ; Start 05/07/19 at 21:00; Status UNV Gabapentin (Neurontin) 300 mg TID PO Last administered on 05/10/19 08:16; Start 05/07/19 at 14:00 Cetirizine HCl (ZyrTEC) 10 mg DAILY PO Last administered on 05/10/19at 08:17; Start 05/08/19 at 09:00 Oxycodone HCl (Roxicodone) 10 mg PRN Q6HRS PRN PO PAIN Last administered on 05/09/19at 22:10; Start 05/07/19 at 10:00 Oxycodone HCl (OxyCONTIN) 20 mg Q12HR PO Last administered on 05/10/19 08:17; Start 05/07/19 at 10:00 Prochlorperazine Maleate (Compazine) 10 mg PRN Q6HRS PRN PO NAUSEA/VOMITING Last administered on 05/09/19 09:46; Start 05/07/19 at 10:30 Venlafaxine HCl (Effexor Xr) 225 mg DAILY PO Last administered on 05/09/19at 10:58; Start 05/07/19 at 10:00; Stop 05/10/19 at 08:02; Status DC Nicotine (Nicoderm Cq 21mg) 1 patch PRN DAILY PRN TD SMOKING CESSATION; Start 05/08/19 at 09:00 Budesonide (Pulmicort) 0.5 mg RTBID NEB Last administered on 05/10/19at 07:41; Start 05/07/19 at 11:00 Potassium Chloride/Water 100 ml @ 100 mls/hr Q1H IV Last administered on 05/07/19at 11:04; Start 05/07/19 at 10:30; Stop 05/07/19 at 11:41; Status DC Potassium Chloride (Klor-Con) 40 meq 1X ONCE PO Last administered on 05/07/19at 11:51; Start 05/07/19 at 11:45; Stop 05/07/19 at 11:46; Status DC Apixaban (Eliquis) 10 mg BID PO Last administered on 05/08/19at 10:32; Start 05/08/19 at 10:30; Stop 05/08/19 at 11:37; Status DC Potassium Chloride (Klor-Con) 40 meq 1X ONCE PO Last administered on 05/08/19at 09:34; Start 05/08/19 at 08:00; Stop 05/08/19 at 08:03; Status DC Apixaban (Eliquis) 5 mg BID PO ; Start 05/15/19 at 09:00; Stop 05/08/19 at 11:37; Status DC Warfarin Sodium (Coumadin Per Pharmacy) 1 each PRN DAILY PRN MC SEE COMMENTS Last administered on 05/08/19at 13:42; Start 05/08/19 at 11:45; Stop 05/08/19 at 13:52; Status DC Warfarin Sodium (Coumadin) 5 mg 1X WARF ONCE PO ; Start 05/08/19 at 16:00; Stop 05/08/19 at 13:52; Status DC Apixaban (Eliquis) 10 mg BID PO Last administered on 05/10/19at 08:17; Start 05/08/19 at 21:00; Stop 05/15/19 at 09:01 Apixaban (Eliquis) 5 mg BID PO ; Start 05/15/19 at 21:00 Non-Formulary Medication (Capecitabine (Xeloda)) 2,000 mg BIDWMEALS PO Last administered on 05/10/19at 08:19; Start 05/08/19 at 17:00 Gadoterate Meglumine (Dotarem) 15 ml 1X ONCE IVP Last administered on 05/09/19at 13:45; Start 05/09/19 at 13:45; Stop 05/09/19 at 13:46; Status DC Venlafaxine HCl (Effexor) 75 mg TID PO Last administered on 05/10/19at 08:38; Start 05/10/19 at 09:00 Active Scripts Active Ambien (Zolpidem Tartrate) 5 Mg Tablet 5 Mg PO PRN QHS PRN 30 Days [Nicotine 21MG] 1 PATCH Patch 1 Patch TD PRN DAILY PRN 30 Days Reported Xeloda (Capecitabine) 500 Mg Tablet 2,000 Mg PO BIDWMEALS Oxycontin (Oxycodone HCl) 20 Mg Tab.er.12h 20 Mg PO BID Pepcid (Famotidine) 40 Mg Tablet 40 Mg PO HS Compazine (Prochlorperazine Maleate) 10 Mg Tablet 10 Mg PO Q6HRS Topiramate 100 Mg Tablet 2 Tab PO BID Venlafaxine Hcl Er (Venlafaxine Hcl) 225 Mg Tab.er.24 1 Tab PO DAILY Xanax (Alprazolam) 0.5 Mg Tablet 1 Tab PO PRN BID PRN Gabapentin 600 Mg Tablet 300 Mg PO TID Levocetirizine Dihydrochloride 5 Mg Tablet 5 Mg PO HS Carvedilol (Carvedilol) 6.25 Mg Tablet 6.25 Mg PO BIDWMEALS Oxycodone Hcl Immed.release (Oxycodone Hcl) 10 Mg Tablet 10 Mg PO Q6HRS PRN Relpax (Eletriptan Hbr) 40 Mg Tablet 40 Mg PO PRN PRN Flonase Allergy Relief (Fluticasone Propionate) 9.9 Ml [place].susp 2 Sprays NS DAILY Duoneb 0.5-3(2.5) Mg/3 Ml (Albuterol/Ipratropium) 3 Ml Ampul.neb 3 Ml NEB QID Proair Hfa Inhaler (Albuterol Sulfate) 8.5 Gm Hfa.aer.ad 1 Puff INH PRN Q6HRS PRN Advair 250-50 Diskus (Fluticasone/Salmeterol) 1 Each Disk.w.dev 1 Inh IH BID Cyclobenzaprine Hcl 10 Mg Tablet 10 Mg PO TID PRN PRN Atorvastatin Calcium 40 Mg Tablet 20 Mg PO HS Singulair Tablet (Montelukast Sodium) 10 Mg Tablet 10 Mg PO HS Vitals/I & O Vital Sign - Last 24 Hours 05/09/19 05/09/19 05/09/19 05/09/19 11:00 11:42 12:00 12:00 Temp 98.6 98.6 Pulse 104 108 Resp 21 32 B/P (MAP) 106/71 (83) 81/63 (69) Pulse Ox 94 96 92 O2 Delivery Nasal Cannula Nasal Cannula Nasal Cannula Nasal Cannula O2 Flow Rate 3.0 2.0 3.0 3.0 05/09/19 05/09/19 05/09/19 05/09/19 13:00 14:00 15:00 15:27 Pulse 106 106 110 Resp 22 16 31 B/P (MAP) 82/63 (69) 99/91 (94) Pulse Ox 93 92 90 96 O2 Delivery Nasal Cannula Nasal Cannula Nasal Cannula Nasal Cannula O2 Flow Rate 3.0 3.0 3.0 2.0 05/09/19 05/09/19 05/09/19 05/09/19 16:00 16:00 17:00 17:19 Temp 98.5 98.5 Pulse 110 111 111 Resp 21 24 B/P (MAP) 120/69 (86) 103/67 (79) 103/65 Pulse Ox 92 94 O2 Delivery Nasal Cannula Nasal Cannula Nasal Cannula O2 Flow Rate 3.0 3.0 3.0 05/09/19 05/09/19 05/09/19 05/09/19 18:00 19:00 19:35 20:00 Temp 98.4 98.4 Pulse 112 112 110 Resp 17 23 23 B/P (MAP) 106/59 (75) 109/74 (86) 118/92 (101) Pulse Ox 95 93 94 93 O2 Delivery Nasal Cannula Nasal Cannula Nasal Cannula Nasal Cannula O2 Flow Rate 3.0 3.0 2.0 3.0 05/09/19 05/09/19 05/09/19 05/09/19 20:00 21:00 22:00 22:10 Pulse 111 113 Resp 23 23 32 B/P (MAP) 118/71 (87) 84/61 (69) Pulse Ox 91 91 94 O2 Delivery Nasal Cannula Nasal Cannula Nasal Cannula Nasal Cannula O2 Flow Rate 2.0 3.0 3.0 2.0 05/09/19 05/09/19 05/09/19 05/10/19 23:00 23:10 23:59 00:01 Temp 100.9 100.9 Pulse 111 111 Resp 33 32 22 B/P (MAP) 130/107 (115) 109/76 (87) Pulse Ox 91 95 94 O2 Delivery Nasal Cannula Nasal Cannula Nasal Cannula Nasal Cannula O2 Flow Rate 4.0 4.0 4.0 4.0 05/10/19 05/10/19 05/10/19 05/10/19 00:40 01:00 02:00 03:00 Pulse 113 114 117 Resp 26 26 23 23 B/P (MAP) 86/66 (73) 95/60 (72) 116/72 (87) Pulse Ox 94 95 94 95 O2 Delivery Nasal Cannula Nasal Cannula Nasal Cannula Nasal Cannula O2 Flow Rate 2.0 4.0 4.0 4.0 05/10/19 05/10/19 05/10/1919 04:00 04:00 04:40 05:00 Temp 99.3 99.3 99.3 99.3 Pulse 117 117 Resp 23 12 23 B/P (MAP) 103/63 (76) 116/72 (87) Pulse Ox 95 95 95 O2 Delivery Nasal Cannula Nasal Cannula Nasal Cannula Nasal Cannula O2 Flow Rate 4.0 4.0 4.0 4.0 05/10/19 05/10/19 05/10/19 05/10/19 06:00 07:00 07:41 08:00 Temp 99.9 99.9 Pulse 115 116 116 Resp 13 29 25 B/P (MAP) 101/68 (79) 100/72 (81) 119/73 (88) Pulse Ox 95 94 95 94 O2 Delivery Nasal Cannula Nasal Cannula Nasal Cannula Nasal Cannula O2 Flow Rate 4.0 4.0 4.0 4.0 05/10/19 05/10/19 05/10/19 08:00 08:18 09:00 Pulse 118 Resp 32 B/P (MAP) 106/70 90/56 (67) Pulse Ox 94 O2 Delivery Nasal Cannula Nasal Cannula O2 Flow Rate 3.0 4.0 Intake and Output 0 05/09/19 05/09/19 05/10/19 15:00 23:00 07:00 Intake Total 200 ml 300 ml Output Total 60 ml 935 ml 310 ml Balance 140 ml -635 ml -310 ml Images [facility] [address] [place] [address] IMAGING REPORT Signed PATIENT: JAMAAL GUERRERO ACCOUNT: [id number] : 1970 LOCATION: [facility] ICU AGE: 49 SEX: F EXAM STATUS: ADM IN ORD. PHYSICIAN: TETO LEVINE MD REASON: f/u CVT, increased pain, hearing loss 15mL DOTAREM PROCEDURE: BRAIN WO/W CONTRAST MRI Brain with and without contrast History: Increasing pain and hearing loss, history of breast cancer Technique: Multiplanar, multi sequential pre and postcontrast MR imaging was performed of the brain. Comparison: February 08, 2019 MRI brain exam Findings: There is now prominent fluid of the right mastoid air cells. There is now abnormal signal in the right sigmoid sinus and jugular bulb as well as distal right transverse sinus associated with peripheral enhancement. There is also some fluid in the right middle ear cavity. There is no evidence of recent infarct. There is no new midline shift. Ventricular size is within normal limits. Previously seen scattered mild T2 and FLAIR hyperintense signal of the supratentorial parenchyma is similar. There is small focus of signal change left cerebellum probably sequela of old lacunar infarct as seen previously. There is some increased CSF signal of the optic nerve sheaths bilaterally as seen previously. There is small right sphenoid sinus mucous retention cyst. There is now air-fluid level of the left maxillary sinus, also apparently on right with adjacent mucosal thickening. Left mastoid air cells are aerated. There is preservation of the major arterial intracranial flow voids at the skull base. There is again heterogeneous signal of the marrow of the clivus. Impression: 1. There is no evidence of recent infarct. There is now prominent fluid of the right mastoid air cells of uncertain sterility, also some fluid in the right middle ear cavity. There is now abnormal signal in the distal right transverse sinus as well as sigmoid sinus and right internal jugular bulb, evidence of occlusive venous thrombus. 2. There are some air-fluid levels of the maxillary sinuses as may be seen with acute sinusitis. 3. There is similar scattered minimal T2 and FLAIR hyperintense signal of the supratentorial parenchyma, may be due to nonspecific gliosis. 4. There is again heterogeneous signal of the clivus concerning for metastatic disease given history. TETO LEVINE MD May 10, 2019 10:22
--- NOTE | 2019-05-10 10:38 | NUR ---
SS following up with discharge planning. SS met with pt to discuss discharge planning. Pt verified that she was previously on services with [facility], ; fax [phone]. Pt reported that she was not on oxygen at home. Physician notified. SS will continue to follow for discharge planning.
--- NOTE | 2019-05-10 10:49 | PDOC ---
PULMONARY PROGRESS NOTES Subjective SITTING IN CHAIR NOT MORE SOA Vitals Vital Signs Date Time Temp Pulse Resp B/P (MAP) Pulse Ox O2 Delivery O2 Flow Rate FiO2 05/10/19 09:00 118 32 90/56 (67) 94 Nasal Cannula 4.0 05/10/19 08:00 99.9 99.9 ROS: No Nausea, No Chest Pain, No Abdominal Pain, No Increase Cough General: Alert Lungs: Crackles Cardiovascular: S2 Abdomen: Soft, Non-tender Neuro Exam: Alert Extremities: No Edema Skin: Warm Labs Laboratory Tests Test 05/09/19 04:30 05/09/19 22:30 05/10/19 07:00 Prothrombin Time 15.9 SEC (11.7-14.0) 24.2 SEC (11.7-14.0) Prothromb Time International Ratio 1.3 (0.8-1.1) 2.2 (0.8-1.1) Urine Collection Type U cath Urine Color Yellow Urine Clarity Clear Urine pH 6.5 Urine Specific [place] 1.010 Urine Protein Negative mg/dL (NEG-TRACE) Urine Glucose (UA) Negative mg/dL (NEG) Urine Ketones (Stick) Negative mg/dL (NEG) Urine Blood Negative (NEG) Urine Nitrite Negative (NEG) Urine Bilirubin Negative (NEG) Urine Urobilinogen Dipstick 1.0 mg/dL (0.2 mg/dL) Urine Leukocyte Esterase Negative (NEG) Urine RBC 0 /HPF (0-2) Urine WBC Occ /HPF (0-4) Urine Squamous Epithelial Cells Few /LPF Urine Amorphous Sediment Present /HPF Urine Bacteria 0 /HPF (0-FEW) Urine Mucus Slight /LPF Laboratory Tests Test 05/09/19 22:30 05/10/19 07:00 Urine Collection Type U cath Urine Color Yellow Urine Clarity Clear Urine pH 6.5 Urine Specific [place] 1.010 Urine Protein Negative mg/dL (NEG-TRACE) Urine Glucose (UA) Negative mg/dL (NEG) Urine Ketones (Stick) Negative mg/dL (NEG) Urine Blood Negative (NEG) Urine Nitrite Negative (NEG) Urine Bilirubin Negative (NEG) Urine Urobilinogen Dipstick 1.0 mg/dL (0.2 mg/dL) Urine Leukocyte Esterase Negative (NEG) Urine RBC 0 /HPF (0-2) Urine WBC Occ /HPF (0-4) Urine Squamous Epithelial Cells Few /LPF Urine Amorphous Sediment Present /HPF Urine Bacteria 0 /HPF (0-FEW) Urine Mucus Slight /LPF Prothrombin Time 24.2 SEC (11.7-14.0) Prothromb Time International Ratio 2.2 (0.8-1.1) Medications Active Scripts Medications Dose Route/Sig Max Daily Dose Days Date Category Ambien (Zolpidem Tartrate) 5 Mg Tablet 5 Mg PO PRN QHS PRN 30 04/19/19 Rx [Nicotine 21MG] 1 PATCH Patch 1 Patch TD PRN DAILY PRN 30 04/19/19 Rx Oxycontin (Oxycodone HCl) 20 Mg Tab.er.12h 20 Mg PO BID 04/16/19 Reported Pepcid (Famotidine) 40 Mg Tablet 40 Mg PO HS 03/06/19 Reported Compazine (Prochlorperazine Maleate) 10 Mg Tablet 10 Mg PO Q6HRS 03/06/19 Reported Topiramate 100 Mg Tablet 2 Tab PO BID 03/06/19 Reported Venlafaxine Hcl Er (Venlafaxine Hcl) 225 Mg Tab.er.24 1 Tab PO DAILY 09/05/18 Reported Xanax (Alprazolam) 0.5 Mg Tablet 1 Tab PO PRN BID PRN 09/05/18 Reported Gabapentin 600 Mg Tablet 300 Mg PO TID 06/09/18 Reported Levocetirizine Dihydrochloride 5 Mg Tablet 5 Mg PO HS 03/09/18 Reported Carvedilol (Carvedilol) 6.25 Mg Tablet 6.25 Mg PO BIDWMEALS 03/09/18 Reported Oxycodone Hcl Immed.release (Oxycodone Hcl) 10 Mg Tablet 10 Mg PO Q6HRS PRN 03/09/18 Reported Relpax (Eletriptan Hbr) 40 Mg Tablet 40 Mg PO PRN PRN 08/23/17 Reported Flonase Allergy Relief (Fluticasone Propionate) 9.9 Ml [place].susp 2 Sprays NS DAILY 08/23/17 Reported Duoneb 0.5-3(2.5) Mg/3 Ml (Albuterol/Ipratropium) 3 Ml Ampul.neb 3 Ml NEB QID 08/23/17 Reported Proair Hfa Inhaler (Albuterol Sulfate) 8.5 Gm Hfa.aer.ad 1 Puff INH PRN Q6HRS PRN 08/23/17 Reported Advair 250-50 Diskus (Fluticasone/Salmeterol) 1 Each Disk.w.dev 1 Inh IH BID 08/23/17 Reported Cyclobenzaprine Hcl 10 Mg Tablet 10 Mg PO TID PRN PRN 10/31/13 Reported Atorvastatin Calcium 40 Mg Tablet 20 Mg PO HS 10/31/13 Reported Singulair Tablet (Montelukast Sodium) 10 Mg Tablet 10 Mg PO HS 10/31/13 Reported Impression . 1. Left-sided loculated pleural effusion secondary to known stage 4 breast cancer. 2. Status post previous left-sided thoracentesis for pleural effusion. 3. Stage 4 breast cancer. 4. 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 5. Bony metastases. 6. Liver metastases. 7. Tobacco dependent. 8. Suspect chronic obstructive pulmonary disease. Plan . RESP STATUS IS COMPENSATED D/W WILL MONITOR FOR NOW D/C ANGELY Ash MW FOLLOW NEURO INPUT ON ANTICOAGULATION UP TO CHAIR VAL PEÑA MD May 10, 2019 10:49
--- NOTE | 2019-05-10 12:59 | PDOC ---
PROGRESS NOTES Subjective Subjective HPI - f/u of Stage 4 breast cancer ROS - headaches stable Objective Objective Vital Signs Date Time Temp Pulse Resp B/P (MAP) Pulse Ox O2 Delivery O2 Flow Rate FiO2 05/10/19 12:00 99.0 108 12 95/73 (80) 93 Nasal Cannula 4.0 99.0 Intake and Output 05/10/19 07:00 Intake Total 500 ml Output Total 1305 ml Balance -805 ml Intake Oral 500 ml Output Urine Total 1245 ml Oral Regurgitation 60 ml # Voids 2 Physical Exam Heart: Normal S1, Normal S2 General: Alert, Oriented X3 Lungs: Clear to auscultation Neuro: Normal speech Psych/Mental Status: Mental status NL Assessment Assessment Problems Medical Problems: (1) HX: breast cancer Status: Acute (2) Hypokalemia Status: Acute (3) Internal jugular vein thrombosis Status: Acute IMPRESSION AND PLAN: 1. Stage 4 breast cancer with evidence of left-sided malignant pleural effusion, bone metastasis and liver metastasis and scattered pulmonary nodules, which may or may not be metastasis. She was started on palliative chemotherapy with Xeloda 2000 mg twice a day for 14 days on and 1 week off from 04/13/2019. She was started on cycle #2 on 05/04/2019. I have advised her to resume Xeloda once she has the medications obtained from home. 2. 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 I agreed to proceed with anticoagulation with heparin. I agree with Dr García to switch to Eliquis at the time of discharge. I d/w pt regarding choice of eliquis vs warfarin (warfarin has interaction with xeloda), reviewed risks and benefits and she prefers eliquis. I appreciate Neurology evaluation and consultation. Etiology is hypercoag state due to malignancy. MRI - 05/09/19: There is no evidence of recent infarct. There is now prominent fluid of the right mastoid air cells of uncertain sterility, also some fluid in the right middle ear cavity. There is now abnormal signal in the distal right transverse sinus as well as sigmoid sinus and right internal jugular bulb, evidence of occlusive venous thrombus. - There are some air-fluid levels of the maxillary sinuses as may be seen with acute sinusitis. - There is similar scattered minimal T2 and FLAIR hyperintense signal of the supratentorial parenchyma, may be due to nonspecific gliosis. - There is again heterogeneous signal of the clivus concerning for metastatic disease given history. 3. Bone metastasis. Continue supportive care. 4. Left-sided malignant pleural effusion status post thoracentesis on 04/16/2019. Continue to monitor. 5. Liver metastasis noted on CT scan of the chest, abdomen, and pelvis on 04/05/2019. Comment Review of Relevant I have reviewed the following items danya (where applicable) has been applied. Labs Laboratory Tests Test 05/09/19 04:30 05/09/19 22:30 05/10/19 07:00 Prothrombin Time 15.9 SEC (11.7-14.0) 24.2 SEC (11.7-14.0) Prothromb Time International Ratio 1.3 (0.8-1.1) 2.2 (0.8-1.1) Urine Collection Type U cath Urine Color Yellow Urine Clarity Clear Urine pH 6.5 Urine Specific [place] 1.010 Urine Protein Negative mg/dL (NEG-TRACE) Urine Glucose (UA) Negative mg/dL (NEG) Urine Ketones (Stick) Negative mg/dL (NEG) Urine Blood Negative (NEG) Urine Nitrite Negative (NEG) Urine Bilirubin Negative (NEG) Urine Urobilinogen Dipstick 1.0 mg/dL (0.2 mg/dL) Urine Leukocyte Esterase Negative (NEG) Urine RBC 0 /HPF (0-2) Urine WBC Occ /HPF (0-4) Urine Squamous Epithelial Cells Few /LPF Urine Amorphous Sediment Present /HPF Urine Bacteria 0 /HPF (0-FEW) Urine Mucus Slight /LPF Laboratory Tests Test 05/09/19 22:30 05/10/19 07:00 Urine Collection Type U cath Urine Color Yellow Urine Clarity Clear Urine pH 6.5 Urine Specific [place] 1.010 Urine Protein Negative mg/dL (NEG-TRACE) Urine Glucose (UA) Negative mg/dL (NEG) Urine Ketones (Stick) Negative mg/dL (NEG) Urine Blood Negative (NEG) Urine Nitrite Negative (NEG) Urine Bilirubin Negative (NEG) Urine Urobilinogen Dipstick 1.0 mg/dL (0.2 mg/dL) Urine Leukocyte Esterase Negative (NEG) Urine RBC 0 /HPF (0-2) Urine WBC Occ /HPF (0-4) Urine Squamous Epithelial Cells Few /LPF Urine Amorphous Sediment Present /HPF Urine Bacteria 0 /HPF (0-FEW) Urine Mucus Slight /LPF Prothrombin Time 24.2 SEC (11.7-14.0) Prothromb Time International Ratio 2.2 (0.8-1.1) Medications Current Medications Sodium Chloride 1,000 ml @ 1,000 mls/hr 1X ONCE IV Last administered on 05/06/19 19:55; Start 05/06/19 at 19:00; Stop 05/06/19 at 19:59; Status DC Dexamethasone Sodium Phosphate (Decadron) 10 mg 1X ONCE IVP Last administered on 05/06/19 19:57; Start 05/06/19 at 19:30; Stop 05/06/19 at 19:38; Status DC Orphenadrine Citrate (Norflex) 60 mg 1X ONCE IV Last administered on 05/06/19 19:57; Start 05/06/19 at 19:30; Stop 05/06/19 at 19:38; Status DC Ondansetron HCl (Zofran) 4 mg 1X ONCE IVP Last administered on 05/06/19 19:57; Start 05/06/19 at 19:30; Stop 05/06/19 at 19:38; Status DC Fentanyl Citrate (Fentanyl 2ml Vial) 50 mcg 1X ONCE IVP Last administered on 05/06/19 20:02; Start 05/06/19 at 19:30; Stop 05/06/19 at 19:38; Status DC Aspirin (Sumi Aspirin) 325 mg 1X ONCE PO Last administered on 05/06/19 20:37; Start 05/06/19 at 20:30; Stop 05/06/19 at 20:31; Status DC Heparin Sodium (Porcine) (Heparin Sodium) 6,900 unit 1X ONCE IV Last administered on 05/06/19at 21:36; Start 05/06/19 at 21:30; Stop 05/06/19 at 21:31; Status DC Heparin Sodium/ Dextrose 500 ml @ 0 mls/hr CONT PRN IV PER PROTOCOL Last administered on 05/07/19at 20:12; Start 05/06/19 at 21:00; Stop 05/08/19 at 08:30; Status DC Heparin Sodium (Porcine) (Heparin Sodium) 2,600 unit PRN Q6HRS PRN IV FOR UFH LEVEL LESS THAN 0.2; Start 05/06/19 at 21:00; Stop 05/08/19 at 14:13; Status DC Heparin Sodium (Porcine) (Heparin Sodium) 1,300 unit PRN Q6HRS PRN IV FOR UFH LEVEL 0.2 - 0.29; Start 05/06/19 at 21:00; Stop 05/08/19 at 14:13; Status DC Ondansetron HCl (Zofran) 4 mg PRN Q8HRS PRN IV NAUSEA/VOMITING 1ST CHOICE; Start 05/06/19 at 21:00; Stop 05/07/19 at 20:59; Status DC Fentanyl Citrate (Fentanyl 2ml Vial) 50 mcg PRN Q2HRS PRN IV SEVERE PAIN 7-10 Last administered on 05/08/19at 15:43; Start 05/06/19 at 21:00 Iohexol (Omnipaque 350 Mg/ml) 100 ml 1X ONCE IV Last administered on 05/06/19at 21:39; Start 05/06/19 at 21:15; Stop 05/06/19 at 21:16; Status DC Info (Anti-Coagulation Monitoring By Pharmacy) 1 each PRN DAILY PRN MC SEE COMMENTS Last administered on 05/08/19at 13:10; Start 05/06/19 at 21:15 Info (CONTRAST GIVEN -- Rx MONITORING) 1 each PRN DAILY PRN MC SEE COMMENTS; Start 05/06/19 at 21:15; Stop 05/08/19 at 21:14; Status DC Albuterol Sulfate (Ventolin Neb Soln) 2.5 mg PRN Q6HRS PRN INH SHORTNESS OF BREATH; Start 05/07/19 at 09:45 Alprazolam (Xanax) 0.5 mg PRN BID PRN PO ANXIETY Last administered on 05/08/19at 19:57; Start 05/07/19 at 09:45 Atorvastatin Calcium (Lipitor) 20 mg QHS PO Last administered on 05/09/19at 22:10; Start 05/07/19 at 21:00 Carvedilol (Coreg) 6.25 mg BIDWMEALS PO Last administered on 05/10/19at 08:18; Start 05/07/19 at 17:00 Cyclobenzaprine HCl (Flexeril) 10 mg TID PRN PRN PO MUSCLE SPASMS Last administered on 05/09/19 22:09; Start 05/07/19 at 09:45 Albuterol/ Ipratropium (Duoneb) 3 ml RTQID NEB Last administered on 05/10/19 11:17; Start 05/07/19 at 13:00 Montelukast Sodium (Singulair) 10 mg HS PO Last administered on 05/09/19 22:11; Start 05/07/19 at 21:00 Topiramate (Topamax) 200 mg BID PO Last administered on 05/10/19 08:17; Start 05/07/19 at 10:00 Zolpidem Tartrate (Ambien) 5 mg PRN QHS PRN PO INSOMNIA Last administered on 05/07/19 21:13; Start 05/07/19 at 09:45 Sumatriptan Succinate (Imitrex) 100 mg PRN Q2HR PRN PO MIGRAINE HEADACHE Last administered on 05/09/19 22:10; Start 05/07/19 at 10:15 Famotidine (Pepcid) 20 mg BID PO Last administered on 05/10/19 08:17; Start 05/07/19 at 21:00 Fluticasone Propionate (Flonase) 2 spray DAILY NS Last administered on 05/10/19 08:18; Start 05/08/19 at 09:00 Non-Formulary Medication (Fluticasone/ Salmeterol (Advair 250-50 Diskus)) 1 inh BID IH ; Start 05/07/19 at 21:00; Status UNV Gabapentin (Neurontin) 300 mg TID PO Last administered on 05/10/19 08:16; Start 05/07/19 at 14:00 Cetirizine HCl (ZyrTEC) 10 mg DAILY PO Last administered on 05/10/19 08:17; Start 05/08/19 at 09:00 Oxycodone HCl (Roxicodone) 10 mg PRN Q6HRS PRN PO PAIN Last administered on 05/09/19 22:10; Start 05/07/19 at 10:00 Oxycodone HCl (OxyCONTIN) 20 mg Q12HR PO Last administered on 05/10/19 08:17; Start 05/07/19 at 10:00 Prochlorperazine Maleate (Compazine) 10 mg PRN Q6HRS PRN PO NAUSEA/VOMITING Last administered on 05/09/19at 09:46; Start 05/07/19 at 10:30 Venlafaxine HCl (Effexor Xr) 225 mg DAILY PO Last administered on 05/09/19at 10:58; Start 05/07/19 at 10:00; Stop 05/10/19 at 08:02; Status DC Nicotine (Nicoderm Cq 21mg) 1 patch PRN DAILY PRN TD SMOKING CESSATION; Start 05/08/19 at 09:00 Budesonide (Pulmicort) 0.5 mg RTBID NEB Last administered on 05/10/19at 07:41; Start 05/07/19 at 11:00 Potassium Chloride/Water 100 ml @ 100 mls/hr Q1H IV Last administered on 05/07/19at 11:04; Start 05/07/19 at 10:30; Stop 05/07/19 at 11:41; Status DC Potassium Chloride (Klor-Con) 40 meq 1X ONCE PO Last administered on 05/07/19at 11:51; Start 05/07/19 at 11:45; Stop 05/07/19 at 11:46; Status DC Apixaban (Eliquis) 10 mg BID PO Last administered on 05/08/19at 10:32; Start 05/08/19 at 10:30; Stop 05/08/19 at 11:37; Status DC Potassium Chloride (Klor-Con) 40 meq 1X ONCE PO Last administered on 05/08at 09:34; Start 05/08/19 at 08:00; Stop 05/08/19 at 08:03; Status DC Apixaban (Eliquis) 5 mg BID PO ; Start 05/15/19 at 09:00; Stop 05/08/19 at 11:37; Status DC Warfarin Sodium (Coumadin Per Pharmacy) 1 each PRN DAILY PRN MC SEE COMMENTS Last administered on 05/08/19at 13:42; Start 05/08/19 at 11:45; Stop 05/08/19 at 13:52; Status DC Warfarin Sodium (Coumadin) 5 mg 1X WARF ONCE PO ; Start 05/08/19 at 16:00; Stop 05/08/19 at 13:52; Status DC Apixaban (Eliquis) 10 mg BID PO Last administered on 05/10/19at 08:17; Start 05/08/19 at 21:00; Stop 05/15/19 at 09:01 Apixaban (Eliquis) 5 mg BID PO ; Start 05/15/19 at 21:00 Non-Formulary Medication (Capecitabine (Xeloda)) 2,000 mg BIDWMEALS PO Last administered on 05/10/19at 08:19; Start 05/08/19 at 17:00 Gadoterate Meglumine (Dotarem) 15 ml 1X ONCE IVP Last administered on 05/09/19at 13:45; Start 05/09/19 at 13:45; Stop 05/09/19 at 13:46; Status DC Venlafaxine HCl (Effexor) 75 mg TID PO Last administered on 05/10/19at 08:38; Start 05/10/19 at 09:00 Active Scripts Active Ambien (Zolpidem Tartrate) 5 Mg Tablet 5 Mg PO PRN QHS PRN 30 Days [Nicotine 21MG] 1 PATCH Patch 1 Patch TD PRN DAILY PRN 30 Days Reported Xeloda (Capecitabine) 500 Mg Tablet 2,000 Mg PO BIDWMEALS Oxycontin (Oxycodone HCl) 20 Mg Tab.er.12h 20 Mg PO BID Pepcid (Famotidine) 40 Mg Tablet 40 Mg PO HS Compazine (Prochlorperazine Maleate) 10 Mg Tablet 10 Mg PO Q6HRS Topiramate 100 Mg Tablet 2 Tab PO BID Venlafaxine Hcl Er (Venlafaxine Hcl) 225 Mg Tab.er.24 1 Tab PO DAILY Xanax (Alprazolam) 0.5 Mg Tablet 1 Tab PO PRN BID PRN Gabapentin 600 Mg Tablet 300 Mg PO TID Levocetirizine Dihydrochloride 5 Mg Tablet 5 Mg PO HS Carvedilol (Carvedilol) 6.25 Mg Tablet 6.25 Mg PO BIDWMEALS Oxycodone Hcl Immed.release (Oxycodone Hcl) 10 Mg Tablet 10 Mg PO Q6HRS PRN Relpax (Eletriptan Hbr) 40 Mg Tablet 40 Mg PO PRN PRN Flonase Allergy Relief (Fluticasone Propionate) 9.9 Ml [place].susp 2 Sprays NS DAILY Duoneb 0.5-3(2.5) Mg/3 Ml (Albuterol/Ipratropium) 3 Ml Ampul.neb 3 Ml NEB QID Proair Hfa Inhaler (Albuterol Sulfate) 8.5 Gm Hfa.aer.ad 1 Puff INH PRN Q6HRS PRN Advair 250-50 Diskus (Fluticasone/Salmeterol) 1 Each Disk.w.dev 1 Inh IH BID Cyclobenzaprine Hcl 10 Mg Tablet 10 Mg PO TID PRN PRN Atorvastatin Calcium 40 Mg Tablet 20 Mg PO HS Singulair Tablet (Montelukast Sodium) 10 Mg Tablet 10 Mg PO HS Vitals/I & O Vital Sign - Last 24 Hours 05/09/19 05/09/19 05/09/19 05/09/19 13:00 14:00 15:00 15:27 Pulse 106 106 110 Resp 22 16 31 B/P (MAP) 82/63 (69) 99/91 (94) Pulse Ox 93 92 90 96 O2 Delivery Nasal Cannula Nasal Cannula Nasal Cannula Nasal Cannula O2 Flow Rate 3.0 3.0 3.0 2.0 05/09/19 05/09/19 05/09/19 05/09/19 16:00 16:00 17:00 17:19 Temp 98.5 98.5 Pulse 110 111 111 Resp 21 24 B/P (MAP) 120/69 (86) 103/67 (79) 103/65 Pulse Ox 92 94 O2 Delivery Nasal Cannula Nasal Cannula Nasal Cannula O2 Flow Rate 3.0 3.0 3.0 05/09/19 05/09/19 05/09/19 05/09/19 18:00 19:00 19:35 20:00 Temp 98.4 98.4 Pulse 112 112 110 Resp 17 23 23 B/P (MAP) 106/59 (75) 109/74 (86) 118/92 (101) Pulse Ox 95 93 94 93 O2 Delivery Nasal Cannula Nasal Cannula Nasal Cannula Nasal Cannula O2 Flow Rate 3.0 3.0 2.0 3.0 05/09/19 05/09/19 05/09/19 05/09/19 20:00 21:00 22:00 22:10 Pulse 111 113 Resp 23 23 32 B/P (MAP) 118/71 (87) 84/61 (69) Pulse Ox 91 91 94 O2 Delivery Nasal Cannula Nasal Cannula Nasal Cannula Nasal Cannula O2 Flow Rate 2.0 3.0 3.0 2.0 05/09/19 05/09/19 05/09/19 05/10/19 23:00 23:10 23:59 00:01 Temp 100.9 100.9 Pulse 111 111 Resp 33 32 22 B/P (MAP) 130/107 (115) 109/76 (87) Pulse Ox 91 95 94 O2 Delivery Nasal Cannula Nasal Cannula Nasal Cannula Nasal Cannula O2 Flow Rate 4.0 4.0 4.0 4.0 05/10/19 05/10/19 05/10/19 05/10/19 00:40 01:00 02:00 03:00 Pulse 113 114 117 Resp 26 26 23 23 B/P (MAP) 86/66 (73) 95/60 (72) 116/72 (87) Pulse Ox 94 95 94 95 O2 Delivery Nasal Cannula Nasal Cannula Nasal Cannula Nasal Cannula O2 Flow Rate 2.0 4.0 4.0 4.0 05/10/19 05/10/19 05/10/19 05/10/19 04:00 04:00 04:40 05:00 Temp 99.3 99.3 99.3 99.3 Pulse 117 117 Resp 23 12 23 B/P (MAP) 103/63 (76) 116/72 (87) Pulse Ox 95 95 95 O2 Delivery Nasal Cannula Nasal Cannula Nasal Cannula Nasal Cannula O2 Flow Rate 4.0 4.0 4.0 4.0 05/10/19 05/10/19 05/10/19 05/10/19 06:00 07:00 07:41 08:00 Temp 99.9 99.9 Pulse 115 116 116 Resp 13 29 25 B/P (MAP) 101/68 (79) 100/72 (81) 119/73 (88) Pulse Ox 95 94 95 94 O2 Delivery Nasal Cannula Nasal Cannula Nasal Cannula Nasal Cannula O2 Flow Rate 4.0 4.0 4.0 4.0 05/10/19 05/10/19 05/10/19 05/10/19 08:00 08:18 09:00 11:17 Pulse 118 Resp 32 B/P (MAP) 106/70 90/56 (67) Pulse Ox 94 94 O2 Delivery Nasal Cannula Nasal Cannula Nasal Cannula O2 Flow Rate 3.0 4.0 4.0 05/10/19 12:00 Temp 99.0 99.0 Pulse 108 Resp 12 B/P (MAP) 95/73 (80) Pulse Ox 93 O2 Delivery Nasal Cannula O2 Flow Rate 4.0 Intake and Output 05/09/19 05/09/19 05/10/19 15:00 23:00 07:00 Intake Total 200 ml 300 ml Output Total 60 ml 935 ml 310 ml Balance 140 ml -635 ml -310 ml Nutrition Consultation Dietary Evaluation: Recommendations by RD: Dietary education by RD, Increase Calorie Intake, Protein supplementation Comments: Continue w/regular diet as ordered Continue w/Ensure TID Provided pt w/oncology nutrition hanndouts and handout on ways to increase protein Expected Outcomes/Goals: PO intake to meet >75% est needs - not met, goal ongoing Interpretation of weight loss: >20% in 1 year Malnutrition Findings: Food and Nutrition Intake (Sev: <50% est energy req 5days Weight Status: Obese JEREMY MELO MD May 10, 2019 12:59
[2019-05-10] MEDS: MONTELUKAST SODIUM 10 MG TABLET. PO SCH (21:36)
[2019-05-10] MEDS: ATORVASTATIN CALCIUM 20 MG TABLET PO SCH (21:36)
[2019-05-11 00:55] VITALS: BP 112/87
[2019-05-11 03:33] VITALS: BP 107/76
[2019-05-11] MEDS: BUDESONIDE 0.5 MG/2 ML NEBU. NEB SCH ×3 (08:00→20:50)
[2019-05-11] MEDS: IPRATRPIUM/ALBUTEROL 0.5/2.5MG 3 ML NEBU. NEB SCH ×4 (08:00→20:50)
--- NOTE | 2019-05-11 09:08 | PDOC ---
PROGRESS NOTES Subjective Subjective HPI - f/u of Stage 4 breast cancer ROS - confused at times Objective Objective Vital Signs Date Time Temp Pulse Resp B/P (MAP) Pulse Ox O2 Delivery O2 Flow Rate FiO2 05/11/19 03:33 98.2 108 18 107/76 (86) 90 Nasal Cannula 4.0 98.2 Intake and Output 05/11/19 07:00 Intake Total 1150 ml Output Total 901 ml Balance 249 ml Intake Oral 1150 ml Output Urine Total 901 ml Physical Exam Heart: Normal S1, Normal S2 General: Alert, No acute distress Lungs: Clear to auscultation Neuro: Normal speech Assessment Assessment Problems Medical Problems: (1) HX: breast cancer Status: Acute (2) Hypokalemia Status: Acute (3) Internal jugular vein thrombosis Status: Acute IMPRESSION AND PLAN: 1. Stage 4 breast cancer with evidence of left-sided malignant pleural effusion, bone metastasis and liver metastasis and scattered pulmonary nodules, which may or may not be metastasis. She was started on palliative chemotherapy with Xeloda 2000 mg twice a day for 14 days on and 1 week off from 04/13/2019. She was started on cycle #2 on 05/04/2019. I have advised her to resume Xeloda once she has the medications obtained from home. 2. 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 I agreed to proceed with anticoagulation with heparin. I agree with Dr García to switch to Eliquis at the time of discharge. I d/w pt regarding choice of eliquis vs warfarin (warfarin has interaction with xeloda), reviewed risks and benefits and she prefers eliquis. I appreciate Neurology evaluation and consultation. Etiology is hypercoag state due to malignancy. MRI - 05/09/19: There is no evidence of recent infarct. There is now prominent fluid of the right mastoid air cells of uncertain sterility, also some fluid in the right middle ear cavity. There is now abnormal signal in the distal right transverse sinus as well as sigmoid sinus and right internal jugular bulb, evidence of occlusive venous thrombus. - There are some air-fluid levels of the maxillary sinuses as may be seen with acute sinusitis. - There is similar scattered minimal T2 and FLAIR hyperintense signal of the supratentorial parenchyma, may be due to nonspecific gliosis. - There is again heterogeneous signal of the clivus concerning for metastatic disease given history. 3. Bone metastasis. Continue supportive care. 4. Left-sided malignant pleural effusion status post thoracentesis on 04/16/2019. Continue to monitor. 5. Liver metastasis noted on CT scan of the chest, abdomen, and pelvis on 04/05/2019. 6. Delirium - probably from polypharmacy - d/c xanax, flexiril, neurontin, oxycontin, ambien, xeloda. Ok to restart as needed. Comment Review of Relevant I have reviewed the following items danya (where applicable) has been applied. Labs Laboratory Tests Test 05/09/19 22:30 05/10/19 07:00 Urine Collection Type U cath Urine Color Yellow Urine Clarity Clear Urine pH 6.5 Urine Specific [place] 1.010 Urine Protein Negative mg/dL (NEG-TRACE) Urine Glucose (UA) Negative mg/dL (NEG) Urine Ketones (Stick) Negative mg/dL (NEG) Urine Blood Negative (NEG) Urine Nitrite Negative (NEG) Urine Bilirubin Negative (NEG) Urine Urobilinogen Dipstick 1.0 mg/dL (0.2 mg/dL) Urine Leukocyte Esterase Negative (NEG) Urine RBC 0 /HPF (0-2) Urine WBC Occ /HPF (0-4) Urine Squamous Epithelial Cells Few /LPF Urine Amorphous Sediment Present /HPF Urine Bacteria 0 /HPF (0-FEW) Urine Mucus Slight /LPF Prothrombin Time 24.2 SEC (11.7-14.0) Prothromb Time International Ratio 2.2 (0.8-1.1) Medications Current Medications Sodium Chloride 1,000 ml @ 1,000 mls/hr 1X ONCE IV Last administered on 05/06/19at 19:55; Start 05/06/19 at 19:00; Stop 05/06/19 at 19:59; Status DC Dexamethasone Sodium Phosphate (Decadron) 10 mg 1X ONCE IVP Last administered on 05/06/19 19:57; Start 05/06/19 at 19:30; Stop 05/06/19 at 19:38; Status DC Orphenadrine Citrate (Norflex) 60 mg 1X ONCE IV Last administered on 05/06/19at 19:57; Start 05/06/19 at 19:30; Stop 05/06/19 at 19:38; Status DC Ondansetron HCl (Zofran) 4 mg 1X ONCE IVP Last administered on 05/06/19 19:57; Start 05/06/19 at 19:30; Stop 05/06/19 at 19:38; Status DC Fentanyl Citrate (Fentanyl 2ml Vial) 50 mcg 1X ONCE IVP Last administered on 05/06/19at 20:02; Start 05/06/19 at 19:30; Stop 05/06/19 at 19:38; Status DC Aspirin (Sumi Aspirin) 325 mg 1X ONCE PO Last administered on 05/06/19at 20:37; Start 05/06/19 at 20:30; Stop 05/06/19 at 20:31; Status DC Heparin Sodium (Porcine) (Heparin Sodium) 6,900 unit 1X ONCE IV Last administered on 05/06/19at 21:36; Start 05/06/19 at 21:30; Stop 05/06/19 at 21:31; Status DC Heparin Sodium/ Dextrose 500 ml @ 0 mls/hr CONT PRN IV PER PROTOCOL Last administered on 05/07/19at 20:12; Start 05/06/19 at 21:00; Stop 05/08/19 at 08:30; Status DC Heparin Sodium (Porcine) (Heparin Sodium) 2,600 unit PRN Q6HRS PRN IV FOR UFH LEVEL LESS THAN 0.2; Start 05/06/19 at 21:00; Stop 05/08/19 at 14:13; Status DC Heparin Sodium (Porcine) (Heparin Sodium) 1,300 unit PRN Q6HRS PRN IV FOR UFH LEVEL 0.2 - 0.29; Start 05/06/19 at 21:00; Stop 05/08/19 at 14:13; Status DC Ondansetron HCl (Zofran) 4 mg PRN Q8HRS PRN IV NAUSEA/VOMITING 1ST CHOICE; Start 05/06/19 at 21:00; Stop 05/07/19 at 20:59; Status DC Fentanyl Citrate (Fentanyl 2ml Vial) 50 mcg PRN Q2HRS PRN IV SEVERE PAIN 7-10 Last administered on 05/08/19at 15:43; Start 05/06/19 at 21:00 Iohexol (Omnipaque 350 Mg/ml) 100 ml 1X ONCE IV Last administered on 05/06/19at 21:39; Start 05/06/19 at 21:15; Stop 05/06/19 at 21:16; Status DC Info (Anti-Coagulation Monitoring By Pharmacy) 1 each PRN DAILY PRN MC SEE COMMENTS Last administered on 05/08/19 13:10; Start 05/06/19 at 21:15 Info (CONTRAST GIVEN -- Rx MONITORING) 1 each PRN DAILY PRN MC SEE COMMENTS; Start 05/06/19 at 21:15; Stop 05/08/19 at 21:14; Status DC Albuterol Sulfate (Ventolin Neb Soln) 2.5 mg PRN Q6HRS PRN INH SHORTNESS OF BREATH; Start 05/07/19 at 09:45 Alprazolam (Xanax) 0.5 mg PRN BID PRN PO ANXIETY Last administered on 05/08/19 19:57; Start 05/07/19 at 09:45 Atorvastatin Calcium (Lipitor) 20 mg QHS PO Last administered on 05/10/19 21:36; Start 05/07/19 at 21:00 Carvedilol (Coreg) 6.25 mg BIDWMEALS PO Last administered on 05/10/19 16:59; Start 05/07/19 at 17:00 Cyclobenzaprine HCl (Flexeril) 10 mg TID PRN PRN PO MUSCLE SPASMS Last administered on 05/09/19 22:09; Start 05/07/19 at 09:45 Albuterol/ Ipratropium (Duoneb) 3 ml RTQID NEB Last administered on 05/10/19 20:12; Start 05/07/19 at 13:00 Montelukast Sodium (Singulair) 10 mg HS PO Last administered on 05/10/19 21:36; Start 05/07/19 at 21:00 Topiramate (Topamax) 200 mg BID PO Last administered on 05/10/19 21:36; Start 05/07/19 at 10:00 Zolpidem Tartrate (Ambien) 5 mg PRN QHS PRN PO INSOMNIA Last administered on 05/07/19 21:13; Start 05/07/19 at 09:45 Sumatriptan Succinate (Imitrex) 100 mg PRN Q2HR PRN PO MIGRAINE HEADACHE Last administered on 05/09/19 22:10; Start 05/07/19 at 10:15 Famotidine (Pepcid) 20 mg BID PO Last administered on 05/10/19 21:35; Start 05/07/19 at 21:00 Fluticasone Propionate (Flonase) 2 spray DAILY NS Last administered on 05/10/19 08:18; Start 05/08/19 at 09:00 Non-Formulary Medication (Fluticasone/ Salmeterol (Advair 250-50 Diskus)) 1 inh BID IH ; Start 05/07/19 at 21:00; Status UNV Gabapentin (Neurontin) 300 mg TID PO Last administered on 05/10/19 21:37; Start 05/07/19 at 14:00 Cetirizine HCl (ZyrTEC) 10 mg DAILY PO Last administered on 05/10/19 08:17; Start 05/08/19 at 09:00 Oxycodone HCl (Roxicodone) 10 mg PRN Q6HRS PRN PO PAIN Last administered on 05/09/19 22:10; Start 05/07/19 at 10:00 Oxycodone HCl (OxyCONTIN) 20 mg Q12HR PO Last administered on 05/10/19 21:36; Start 05/07/19 at 10:00 Prochlorperazine Maleate (Compazine) 10 mg PRN Q6HRS PRN PO NAUSEA/VOMITING Last administered on 05/09/19 09:46; Start 05/07/19 at 10:30 Venlafaxine HCl (Effexor Xr) 225 mg DAILY PO Last administered on 05/09/19 10:58; Start 05/07/19 at 10:00; Stop 05/10/19 at 08:02; Status DC Nicotine (Nicoderm Cq 21mg) 1 patch PRN DAILY PRN TD SMOKING CESSATION; Start 05/08/19 at 09:00 Budesonide (Pulmicort) 0.5 mg RTBID NEB Last administered on 05/10/19 20:14; Start 05/07/19 at 11:00 Potassium Chloride/Water 100 ml @ 100 mls/hr Q1H IV Last administered on 05/07/19 11:04; Start 05/07/19 at 10:30; Stop 05/07/19 at 11:41; Status DC Potassium Chloride (Klor-Con) 40 meq 1X ONCE PO Last administered on 05/07/19at 11:51; Start 05/07/19 at 11:45; Stop 05/07/19 at 11:46; Status DC Apixaban (Eliquis) 10 mg BID PO Last administered on 05/08/19at 10:32; Start 05/08/19 at 10:30; Stop 05/08/19 at 11:37; Status DC Potassium Chloride (Klor-Con) 40 meq 1X ONCE PO Last administered on 05/08/19at 09:34; Start 05/08/19 at 08:00; Stop 05/08/19 at 08:03; Status DC Apixaban (Eliquis) 5 mg BID PO ; Start 05/15/19 at 09:00; Stop 05/08/19 at 11:37; Status DC Warfarin Sodium (Coumadin Per Pharmacy) 1 each PRN DAILY PRN MC SEE COMMENTS Last administered on 05/08/19at 13:42; Start 05/08/19 at 11:45; Stop 05/08/19 at 13:52; Status DC Warfarin Sodium (Coumadin) 5 mg 1X WARF ONCE PO ; Start 05/08/19 at 16:00; Stop 05/08/19 at 13:52; Status DC Apixaban (Eliquis) 10 mg BID PO Last administered on 05/10/19at 21:37; Start 05/08/19 at 21:00; Stop 05/15/19 at 09:01 Apixaban (Eliquis) 5 mg BID PO ; Start 05/15/19 at 21:00 Non-Formulary Medication (Capecitabine (Xeloda)) 2,000 mg BIDWMEALS PO Last administered on 05/10/19at 17:00; Start 05/08/19 at 17:00 Gadoterate Meglumine (Dotarem) 15 ml 1X ONCE IVP Last administered on 1 at 13:45; Start 05/09/19 at 13:45; Stop 05/09/19 at 13:46; Status DC Venlafaxine HCl (Effexor) 75 mg TID PO Last administered on 05/10/19at 21:37; Start 05/10/19 at 09:00 Active Scripts Active Ambien (Zolpidem Tartrate) 5 Mg Tablet 5 Mg PO PRN QHS PRN 30 Days [Nicotine 21MG] 1 PATCH Patch 1 Patch TD PRN DAILY PRN 30 Days Reported Xeloda (Capecitabine) 500 Mg Tablet 2,000 Mg PO BIDWMEALS Oxycontin (Oxycodone HCl) 20 Mg Tab.er.12h 20 Mg PO BID Pepcid (Famotidine) 40 Mg Tablet 40 Mg PO HS Compazine (Prochlorperazine Maleate) 10 Mg Tablet 10 Mg PO Q6HRS Topiramate 100 Mg Tablet 2 Tab PO BID Venlafaxine Hcl Er (Venlafaxine Hcl) 225 Mg Tab.er.24 1 Tab PO DAILY Xanax (Alprazolam) 0.5 Mg Tablet 1 Tab PO PRN BID PRN Gabapentin 600 Mg Tablet 300 Mg PO TID Levocetirizine Dihydrochloride 5 Mg Tablet 5 Mg PO HS Carvedilol (Carvedilol) 6.25 Mg Tablet 6.25 Mg PO BIDWMEALS Oxycodone Hcl Immed.release (Oxycodone Hcl) 10 Mg Tablet 10 Mg PO Q6HRS PRN Relpax (Eletriptan Hbr) 40 Mg Tablet 40 Mg PO PRN PRN Flonase Allergy Relief (Fluticasone Propionate) 9.9 Ml [place].susp 2 Sprays NS DAILY Duoneb 0.5-3(2.5) Mg/3 Ml (Albuterol/Ipratropium) 3 Ml Ampul.neb 3 Ml NEB QID Proair Hfa Inhaler (Albuterol Sulfate) 8.5 Gm Hfa.aer.ad 1 Puff INH PRN Q6HRS PRN Advair 250-50 Diskus (Fluticasone/Salmeterol) 1 Each Disk.w.dev 1 Inh IH BID Cyclobenzaprine Hcl 10 Mg Tablet 10 Mg PO TID PRN PRN Atorvastatin Calcium 40 Mg Tablet 20 Mg PO HS Singulair Tablet (Montelukast Sodium) 10 Mg Tablet 10 Mg PO HS Vitals/I & O Vital Sign - Last 24 Hours 05/10/19 05/10/19 05/10/19 05/10/19 11:17 12:00 15:16 16:00 Temp 99.0 99.0 99.0 99.0 Pulse 108 110 Resp 12 11 B/P (MAP) 95/73 (80) 117/76 (90) Pulse Ox 94 93 95 O2 Delivery Nasal Cannula Nasal Cannula Nasal Cannula Nasal Cannula O2 Flow Rate 4.0 4.0 4.0 4.0 05/10/19 05/10/19 05/10/19 05/10/19 16:59 19:45 19:50 20:17 Temp 99.1 99.1 Pulse 115 Resp 18 B/P (MAP) 107/75 114/66 (82) Pulse Ox 91 94 O2 Delivery Nasal Cannula Nasal Cannula Nasal Cannula O2 Flow Rate 4.0 4.0 4.0 05/10/19 05/11/19 05/11/19 21:36 00:55 03:33 Temp 98.8 98.2 98.8 98.2 Pulse 115 108 Resp 22 20 18 B/P (MAP) 112/87 (95) 107/76 (86) Pulse Ox 90 90 O2 Delivery Nasal Cannula Nasal Cannula O2 Flow Rate 4.0 4.0 Intake and Output 05/10/19 05/10/19 05/11/19 15:00 23:00 07:00 Intake Total 850 ml 300 ml Output Total 350 ml 551 ml Balance -350 ml 299 ml 300 ml Nutrition Consultation Dietary Evaluation: Recommendations by RD: Dietary education by RD, Increase Calorie Intake, Pro tein supplementation Comments: Continue w/regular diet as ordered Continue w/Ensure TID Provided pt w/oncology nutrition hanndouts and handout on ways to increase protein Expected Outcomes/Goals: PO intake to meet >75% est needs - not met, goal ongoing Interpretation of weight loss: >20% in 1 year Malnutrition Findings: Food and Nutrition Intake (Sev: <50% est energy req 5days Weight Status: Obese JEREMY MELO MD May 11, 2019 09:08
--- NOTE | 2019-05-11 10:17 | PDOC ---
PULMONARY PROGRESS NOTES Subjective NO COMPLAINTS MANCILLA ARE BETTER NOT MORE SOA Vitals Vital Signs Date Time Temp Pulse Resp B/P (MAP) Pulse Ox O2 Delivery O2 Flow Rate FiO2 05/11/19 03:33 98.2 108 18 107/76 (86) 90 Nasal Cannula 4.0 98.2 ROS: No Nausea, No Chest Pain, No Abdominal Pain, No Increase Cough General: Alert Lungs: Crackles Cardiovascular: S2 Abdomen: Soft, Non-tender Neuro Exam: Alert Extremities: No Edema Skin: Warm Labs Laboratory Tests Test 05/09/19 22:30 05/10/19 07:00 Urine Collection Type U cath Urine Color Yellow Urine Clarity Clear Urine pH 6.5 Urine Specific [place] 1.010 Urine Protein Negative mg/dL (NEG-TRACE) Urine Glucose (UA) Negative mg/dL (NEG) Urine Ketones (Stick) Negative mg/dL (NEG) Urine Blood Negative (NEG) Urine Nitrite Negative (NEG) Urine Bilirubin Negative (NEG) Urine Urobilinogen Dipstick 1.0 mg/dL (0.2 mg/dL) Urine Leukocyte Esterase Negative (NEG) Urine RBC 0 /HPF (0-2) Urine WBC Occ /HPF (0-4) Urine Squamous Epithelial Cells Few /LPF Urine Amorphous Sediment Present /HPF Urine Bacteria 0 /HPF (0-FEW) Urine Mucus Slight /LPF Prothrombin Time 24.2 SEC (11.7-14.0) Prothromb Time International Ratio 2.2 (0.8-1.1) Medications Active Scripts Medications Dose Route/Sig Max Daily Dose Days Date Category Ambien (Zolpidem Tartrate) 5 Mg Tablet 5 Mg PO PRN QHS PRN 30 04/19/19 Rx [Nicotine 21MG] 1 PATCH Patch 1 Patch TD PRN DAILY PRN 30 04/19/19 Rx Oxycontin (Oxycodone HCl) 20 Mg Tab.er.12h 20 Mg PO BID 04/16/19 Reported Pepcid (Famotidine) 40 Mg Tablet 40 Mg PO HS 03/06/19 Reported Compazine (Prochlorperazine Maleate) 10 Mg Tablet 10 Mg PO Q6HRS 03/06/19 Reported Topiramate 100 Mg Tablet 2 Tab PO BID 03/06/19 Reported Venlafaxine Hcl Er (Venlafaxine Hcl) 225 Mg Tab.er.24 1 Tab PO DAILY 09/05/18 Reported Xanax (Alprazolam) 0.5 Mg Tablet 1 Tab PO PRN BID PRN 09/05/18 Reported Gabapentin 600 Mg Tablet 300 Mg PO TID 06/09/18 Reported Levocetirizine Dihydrochloride 5 Mg Tablet 5 Mg PO HS 03/09/18 Reported Carvedilol (Carvedilol) 6.25 Mg Tablet 6.25 Mg PO BIDWMEALS 03/09/18 Reported Oxycodone Hcl Immed.release (Oxycodone Hcl) 10 Mg Tablet 10 Mg PO Q6HRS PRN 03/09/18 Reported Relpax (Eletriptan Hbr) 40 Mg Tablet 40 Mg PO PRN PRN 08/23/17 Reported Flonase Allergy Relief (Fluticasone Propionate) 9.9 Ml [place].susp 2 Sprays NS DAILY 08/23/17 Reported Duoneb 0.5-3(2.5) Mg/3 Ml (Albuterol/Ipratropium) 3 Ml Ampul.neb 3 Ml NEB QID 08/23/17 Reported Proair Hfa Inhaler (Albuterol Sulfate) 8.5 Gm Hfa.aer.ad 1 Puff INH PRN Q6HRS PRN 08/23/17 Reported Advair 250-50 Diskus (Fluticasone/Salmeterol) 1 Each Disk.w.dev 1 Inh IH BID 08/23/17 Reported Cyclobenzaprine Hcl 10 Mg Tablet 10 Mg PO TID PRN PRN 10/31/13 Reported Atorvastatin Calcium 40 Mg Tablet 20 Mg PO HS 10/31/13 Reported Singulair Tablet (Montelukast Sodium) 10 Mg Tablet 10 Mg PO HS 10/31/13 Reported Impression . 1. Left-sided loculated pleural effusion secondary to known stage 4 breast cancer. 2. Status post previous left-sided thoracentesis for pleural effusion. 3. Stage 4 breast cancer. 4. 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 5. Bony metastases. 6. Liver metastases. 7. Tobacco dependent. 8. Suspect chronic obstructive pulmonary disease. Plan . RN CONCERNED ABOUT RESP STATUS ABG ORDERED I REVIEWED PT WITH NO RESP DISTRESS RESP STATUS IS COMPENSATED D/W WILL MONITOR FOR NOW D/C ANGELY 6 MW FOLLOW NEURO INPUT ON ANTICOAGULATION UP TO CHAIR VAL PEÑA MD May 11, 2019 10:17
[2019-05-11] MEDS: FLUTICASONE 50MCG/NASAL SPRAY 16GM BOTTLE. NS SCH (11:06)
[2019-05-11] MEDS: CARVEDILOL 6.25 MG TABLET. PO SCH ×2 (11:06→18:21)
[2019-05-11] MEDS: CETIRIZINE HCL 10 MG TABLET. PO SCH (11:07)
[2019-05-11] MEDS: FAMOTIDINE 20 MG TABLET. PO SCH ×2 (11:07→21:01)
[2019-05-11] MEDS: VENLAFAXINE 75 MG TABLET. PO SCH ×3 (11:07→21:00)
[2019-05-11] MEDS: TOPIRAMATE 100 MG TABLET. PO SCH ×2 (11:07→21:01)
[2019-05-11] MEDS: APIXABAN 5 MG TABLET. PO SCH ×2 (11:07→21:00)
--- NOTE | 2019-05-11 11:28 | PDOC ---
[facility] PROGRESS NOTE Chief Complaint Chief Complaint Hyperdense appearance of the right sigmoid sinus, strongly favored to represent dural venous thrombosis Anemia Hypoxic respiratory failure Hypotension Hypokalemia Metastatic breast cancer Expanded appearance of the right internal jugular vein which could reflect thrombus Heterogenous sclerotic appearance of the osseous structures. Left pleural effusion Anxiety with depression Asthma Smoker Severe protein calorie malnutrition Confusion History of Present Illness History of Present Illness 05/11/2019 Pt was seen and examined. Pt reports still feeling bad, and confused. She reports dizziness, reports that she still feels weak. 05/10/2019 Ms Rausch is a 49-year-old female with past medical history of breast cancer with metastasis to bone and liver, asthma, migraines, smoker who presents with 2-3 day history of right neck pain, headache, facial swelling and numbness, and dec reased hearing on right side. Recently seen by Dr. Garcia (oncology) on Tuesday for symptoms and treated for muscle tension. She was found with concerning CT head for right venous sinus thrombosis and found with complete left jugular occlusion on neck ultrasound, started on heparin GTT and admitted for further care. 05/08: MRV confirmed likely sinus thrombosis. Her symptoms improved with heparin GTT. Still very dizzy and lightheaded. Still on NCO2. Seen by pulmonology. D/w heme/onc that coumadin would interfere with her treatment regimen and opted for initiating eliquis. Hearing loss is still a symptom today. Right sided headache worse. Significant other concerned about confusion. I have advised benzos, topiramate, gabapentin, and opioids can all cause this. MRI brain shows no acute CVA, but does indicate right sinus air-fluid levels and right middle ear effusion. She has been dizzy, wants further gait evaluation Plan: Can downgrade to med tele Consulted pulm for hypoxia, decreased left sided breath sounds - will need f/u of known left malignant pleural effusion Transition to eliquis 10mg BID for 7 days, then 5mg BID Middle ear effusion needs monitoring Vitals/I&O Vitals/I&O: Vital Signs Date Time Temp Pulse Resp B/P (MAP) Pulse Ox O2 Delivery O2 Flow Rate FiO2 05/11/19 11:06 108 105/62 05/11/19 03:33 98.2 18 90 Nasal Cannula 4.0 98.2 I & O 05/10/19 05/10/19 05/11/19 14:59 22:59 06:59 Intake Total 850 ml 300 ml Output Total 350 ml 551 ml Balance -350 ml 299 ml 300 ml Physical Exam General: Alert, No acute distress Heart: Normal S1, Normal S2 Lungs: Crackles, Other (labored breathing on exam) Abdomen: Normal bowel sounds, Soft, No tenderness, No hepatosplenomegaly, No masses Extremities: No clubbing, No cyanosis, No edema, Normal pulses, No tenderness/swelling Skin: No rashes, No breakdown, No significant lesion Review of Systems Review of Systems: Admits SOB Denies CP Denies N/V/D Assessment and Plan Assessmemt and Plan Problems Medical Problems: (1) HX: breast cancer Status: Acute (2) Hypokalemia Status: Acute (3) Internal jugular vein thrombosis Status: Acute Hyperdense appearance of the right sigmoid sinus, strongly favored to represent dural venous thrombosis Anemia Hypoxic respiratory failure Hypotension Hypokalemia Metastatic breast cancer Expanded appearance of the right internal jugular vein which could reflect thrombus Heterogenous sclerotic appearance of the osseous structures. Left pleural effusion Anxiety with depression Asthma Smoker Severe protein calorie malnutrition Confusion Plans 1) Discussed case with nurse, and pharmacist. 2) Continue Eliquis 3) PT/OT 4) Cardiac monitoring 5) Appreciate neuro, pulm, and heme/onc input 6) DVT prophylaxis Comment Review of Relevant I have reviewed the following items danya (where applicable) has been applied. MARY POOL III, DO May 11, 2019 11:28
--- NOTE | 2019-05-11 12:16 | PDOC ---
PROGRESS NOTES Assessment Problems Medical Problems: (1) HX: breast cancer Status: Acute (2) Hypokalemia Status: Acute (3) Internal jugular vein thrombosis Status: Acute Headache and hearing loss are better, MRI negative Right internal jugular and sigmoid sinus thrombosis. Hypercoaguable state related to cancer? Clivus lesion on MRI Plan Apixaban Follow-up with me in 2 months Okay for discharge Subjective Feels better, wants to go home Objective Vital Signs Date Time Temp Pulse Resp B/P (MAP) Pulse Ox O2 Delivery O2 Flow Rate FiO2 05/11/19 11:39 93 Nasal Cannula 4.0 05/11/19 11:06 108 105/62 05/11/19 03:33 98.2 18 98.2 Intake and Output 05/11/19 07:00 Intake Total 1150 ml Output Total 901 ml Balance 249 ml Intake Oral 1150 ml Output Urine Total 901 ml PHYSICAL EXAM Alert. Oriented to time, place and person. PERRL. EOMI. CN: no focal findings. Muscle tone: normal. Muscle strength: 5/5 DTR: 2+ Plantar reflex: flexor Gait: not examined in bed. Sensory exam: no abnormal findings. No cerebellar signs elicited. Right jugular swelling is better Review of Relevant I have reviewed the following items danya (where applicable) has been applied. Labs Laboratory Tests Test 05/09/19 22:30 05/10/19 07:00 Urine Collection Type U cath Urine Color Yellow Urine Clarity Clear Urine pH 6.5 Urine Specific [place] 1.010 Urine Protein Negative mg/dL (NEG-TRACE) Urine Glucose (UA) Negative mg/dL (NEG) Urine Ketones (Stick) Negative mg/dL (NEG) Urine Blood Negative (NEG) Urine Nitrite Negative (NEG) Urine Bilirubin Negative (NEG) Urine Urobilinogen Dipstick 1.0 mg/dL (0.2 mg/dL) Urine Leukocyte Esterase Negative (NEG) Urine RBC 0 /HPF (0-2) Urine WBC Occ /HPF (0-4) Urine Squamous Epithelial Cells Few /LPF Urine Amorphous Sediment Present /HPF Urine Bacteria 0 /HPF (0-FEW) Urine Mucus Slight /LPF Prothrombin Time 24.2 SEC (11.7-14.0) Prothromb Time International Ratio 2.2 (0.8-1.1) Medications Current Medications Sodium Chloride 1,000 ml @ 1,000 mls/hr 1X ONCE IV Last administered on 05/06/19 19:55; Start 05/06/19 at 19:00; Stop 05/06/19 at 19:59; Status DC Dexamethasone Sodium Phosphate (Decadron) 10 mg 1X ONCE IVP Last administered on 05/06/19 19:57; Start 05/06/19 at 19:30; Stop 05/06/19 at 19:38; Status DC Orphenadrine Citrate (Norflex) 60 mg 1X ONCE IV Last administered on 05/06/19 19:57; Start 05/06/19 at 19:30; Stop 05/06/19 at 19:38; Status DC Ondansetron HCl (Zofran) 4 mg 1X ONCE IVP Last administered on 05/06/19 19:57; Start 05/06/19 at 19:30; Stop 05/06/19 at 19:38; Status DC Fentanyl Citrate (Fentanyl 2ml Vial) 50 mcg 1X ONCE IVP Last administered on 05/06/19 20:02; Start 05/06/19 at 19:30; Stop 05/06/19 at 19:38; Status DC Aspirin (Sumi Aspirin) 325 mg 1X ONCE PO Last administered on 05/06/19at 20:37; Start 05/06/19 at 20:30; Stop 05/06/19 at 20:31; Status DC Heparin Sodium (Porcine) (Heparin Sodium) 6,900 unit 1X ONCE IV Last a dministered on 05/06/19at 21:36; Start 05/06/19 at 21:30; Stop 05/06/19 at 21:31; Status DC Heparin Sodium/ Dextrose 500 ml @ 0 mls/hr CONT PRN IV PER PROTOCOL Last administered on 05/07/19at 20:12; Start 05/06/19 at 21:00; Stop 05/08/19 at 08:30; Status DC Heparin Sodium (Porcine) (Heparin Sodium) 2,600 unit PRN Q6HRS PRN IV FOR UFH LEVEL LESS THAN 0.2; Start 05/06/19 at 21:00; Stop 05/08/19 at 14:13; Status DC Heparin Sodium (Porcine) (Heparin Sodium) 1,300 unit PRN Q6HRS PRN IV FOR UFH LEVEL 0.2 - 0.29; Start 05/06/19 at 21:00; Stop 05/08/19 at 14:13; Status DC Ondansetron HCl (Zofran) 4 mg PRN Q8HRS PRN IV NAUSEA/VOMITING 1ST CHOICE; Start 05/06/19 at 21:00; Stop 05/07/19 at 20:59; Status DC Fentanyl Citrate (Fentanyl 2ml Vial) 50 mcg PRN Q2HRS PRN IV SEVERE PAIN 7-10 Last administered on 05/08/19at 15:43; Start 05/06/19 at 21:00 Iohexol (Omnipaque 350 Mg/ml) 100 ml 1X ONCE IV Last administered on 05/06/19at 21:39; Start 05/06/19 at 21:15; Stop 05/06/19 at 21:16; Status DC Info (Anti-Coagulation Monitoring By Pharmacy) 1 each PRN DAILY PRN MC SEE COMMENTS Last administered on 05/08/19at 13:10; Start 05/06/19 at 21:15 Info (CONTRAST GIVEN -- Rx MONITORING) 1 each PRN DAILY PRN MC SEE COMMENTS; Start 05/06/19 at 21:15; Stop 05/08/19 at 21:14; Status DC Albuterol Sulfate (Ventolin Neb Soln) 2.5 mg PRN Q6HRS PRN INH SHORTNESS OF BREATH; Start 05/07/19 at 09:45 Alprazolam (Xanax) 0.5 mg PRN BID PRN PO ANXIETY Last administered on 05/08/19at 19:57; Start 05/07/19 at 09:45; Stop 05/11/19 at 09:06; Status DC Atorvastatin Calcium (Lipitor) 20 mg QHS PO Last administered on 05/10/19at 21:36; Start 05/07/19 at 21:00 Carvedilol (Coreg) 6.25 mg BIDWMEALS PO Last administered on 05/11/19at 11:06; Start 05/07/19 at 17:00 Cyclobenzaprine HCl (Flexeril) 10 mg TID PRN PRN PO MUSCLE SPASMS Last administered on 05/09/19at 22:09; Start 05/07/19 at 09:45; Stop 05/11/19 at 09:06; Status DC Albuterol/ Ipratropium (Duoneb) 3 ml RTQID NEB Last administered on 05/11/19 11:36; Start 05/07/19 at 13:00 Montelukast Sodium (Singulair) 10 mg HS PO Last administered on 05/10/19at 21:36; Start 05/07/19 at 21:00 Topiramate (Topamax) 200 mg BID PO Last administered on 05/11/19at 11:07; Start 05/07/19 at 10:00 Zolpidem Tartrate (Ambien) 5 mg PRN QHS PRN PO INSOMNIA Last administered on 05/07/19 21:13; Start 05/07/19 at 09:45; Stop 05/11/19 at 09:06; Status DC Sumatriptan Succinate (Imitrex) 100 mg PRN Q2HR PRN PO MIGRAINE HEADACHE Last administered on 05/09/19at 22:10; Start 05/07/19 at 10:15 Famotidine (Pepcid) 20 mg BID PO Last administered on 05/11/19at 11:07; Start 05/07/19 at 21:00 Fluticasone Propionate (Flonase) 2 spray DAILY NS Last administered on 05/11/19at 11:06; Start 05/08/19 at 09:00 Non-Formulary Medication (Fluticasone/ Salmeterol (Advair 250-50 Diskus)) 1 inh BID IH ; Start 05/07/19 at 21:00; Status UNV Gabapentin (Neurontin) 300 mg TID PO Last administered on 05/10/19 21:37; Start 05/07/19 at 14:00; Stop 05/11/19 at 09:06; Status DC Cetirizine HCl (ZyrTEC) 10 mg DAILY PO Last administered on 05/11/19at 11:07; Start 05/08/19 at 09:00 Oxycodone HCl (Roxicodone) 10 mg PRN Q6HRS PRN PO PAIN Last administered on 05/09/19at 22:10; Start 05/07/19 at 10:00 Oxycodone HCl (OxyCONTIN) 20 mg Q12HR PO Last administered on 05/10/19 21:36; Start 05/07/19 at 10:00; Stop 05/11/19 at 09:06; Status DC Prochlorperazine Maleate (Compazine) 10 mg PRN Q6HRS PRN PO NAUSEA/VOMITING Last administered on 05/09/19at 09:46; Start 05/07/19 at 10:30 Venlafaxine HCl (Effexor Xr) 225 mg DAILY PO Last administered on 05/09/19at 10:58; Start 05/07/19 at 10:00; Stop 05/10/19 at 08:02; Status DC Nicotine (Nicoderm Cq 21mg) 1 patch PRN DAILY PRN TD SMOKING CESSATION; Start 05/08/19 at 09:00 Budesonide (Pulmicort) 0.5 mg RTBID NEB Last administered on 05/11/19at 11:36; Start 05/07/19 at 11:00 Potassium Chloride/Water 100 ml @ 100 mls/hr Q1H IV Last administered on at 11:04; Start 05/07/19 at 10:30; Stop 05/07/19 at 11:41; Status DC Potassium Chloride (Klor-Con) 40 meq 1X ONCE PO Last administered on 05/07/19at 11:51; Start 05/07/19 at 11:45; Stop 05/07/19 at 11:46; Status DC Apixaban (Eliquis) 10 mg BID PO Last administered on 05/08/19at 10:32; Start 05/08/19 at 10:30; Stop 05/08/19 at 11:37; Status DC Potassium Chloride (Klor-Con) 40 meq 1X ONCE PO Last administered on 05/08/19at 09:34; Start 05/08/19 at 08:00; Stop 05/08/19 at 08:03; Status DC Apixaban (Eliquis) 5 mg BID PO ; Start 05/15/19 at 09:00; Stop 05/08/19 at 11:37; Status DC Warfarin Sodium (Coumadin Per Pharmacy) 1 each PRN DAILY PRN MC SEE COMMENTS Last administered on 05/08/19at 13:42; Start 05/08/19 at 11:45; Stop 05/08/19 at 13:52; Status DC Warfarin Sodium (Coumadin) 5 mg 1X WARF ONCE PO ; Start 05/08/19 at 16:00; Stop 05/08/19 at 13:52; Status DC Apixaban (Eliquis) 10 mg BID PO Last administered on 05/11/19at 11:07; Start 05/08/19 at 21:00; Stop 05/15/19 at 09:01 Apixaban (Eliquis) 5 mg BID PO ; Start 05/15/19 at 21:00 Non-Formulary Medication (Capecitabine (Xeloda)) 2,000 mg BIDWMEALS PO Last administered on 05/10/19at 17:00; Start 05/08/19 at 17:00; Stop 05/11/19 at 09:06; Status DC Gadoterate Meglumine (Dotarem) 15 ml 1X ONCE IVP Last administered on 05/09/19at 13:45; Start 05/09/19 at 13:45; Stop 05/09/19 at 13:46; Status DC Venlafaxine HCl (Effexor) 75 mg TID PO Last administered on 05/11/19at 11:07; Start 05/10/19 at 09:00 Active Scripts Active Ambien (Zolpidem Tartrate) 5 Mg Tablet 5 Mg PO PRN QHS PRN 30 Days [Nicotine 21MG] 1 PATCH Patch 1 Patch TD PRN DAILY PRN 30 Days Reported Xeloda (Capecitabine) 500 Mg Tablet 2,000 Mg PO BIDWMEALS Oxycontin (Oxycodone HCl) 20 Mg Tab.er.12h 20 Mg PO BID Pepcid (Famotidine) 40 Mg Tablet 40 Mg PO HS Compazine (Prochlorperazine Maleate) 10 Mg Tablet 10 Mg PO Q6HRS Topiramate 100 Mg Tablet 2 Tab PO BID Venlafaxine Hcl Er (Venlafaxine Hcl) 225 Mg Tab.er.24 1 Tab PO DAILY Xanax (Alprazolam) 0.5 Mg Tablet 1 Tab PO PRN BID PRN Gabapentin 600 Mg Tablet 300 Mg PO TID Levocetirizine Dihydrochloride 5 Mg Tablet 5 Mg PO HS Carvedilol (Carvedilol) 6.25 Mg Tablet 6.25 Mg PO BIDWMEALS Oxycodone Hcl Immed.release (Oxycodone Hcl) 10 Mg Tablet 10 Mg PO Q6HRS PRN Relpax (Eletriptan Hbr) 40 Mg Tablet 40 Mg PO PRN PRN Flonase Allergy Relief (Fluticasone Propionate) 9.9 Ml [place].susp 2 Sprays NS DAILY Duoneb 0.5-3(2.5) Mg/3 Ml (Albuterol/Ipratropium) 3 Ml Ampul.neb 3 Ml NEB QID Proair Hfa Inhaler (Albuterol Sulfate) 8.5 Gm Hfa.aer.ad 1 Puff INH PRN Q6HRS PRN Advair 250-50 Diskus (Fluticasone/Salmeterol) 1 Each Disk.w.dev 1 Inh IH BID Cyclobenzaprine Hcl 10 Mg Tablet 10 Mg PO TID PRN PRN Atorvastatin Calcium 40 Mg Tablet 20 Mg PO HS Singulair Tablet (Montelukast Sodium) 10 Mg Tablet 10 Mg PO HS Vitals/I & O Vital Sign - Last 24 Hours 05/10/19 05/10/19 05/10/19 05/10/19 15:16 16:00 16:59 19:45 Temp 99.0 99.1 99.0 99.1 Pulse 110 115 Resp 11 18 B/P (MAP) 117/76 (90) 107/75 114/66 (82) Pulse Ox 95 91 O2 Delivery Nasal Cannula Nasal Cannula Nasal Cannula O2 Flow Rate 4.0 4.0 4.0 05/10/19 05/10/19 05/10/19 05/11/19 19:50 20:17 21:36 00:55 Temp 98.8 98.8 Pulse 115 Resp 22 20 B/P (MAP) 112/87 (95) Pulse Ox 94 90 O2 Delivery Nasal Cannula Nasal Cannula Nasal Cannula O2 Flow Rate 4.0 4.0 4.0 05/11/19 05/11/19 05/11/19 05/11/19 03:33 11:06 11:39 11:39 Temp 98.2 98.2 Pulse 108 108 Resp 18 B/P (MAP) 107/76 (86) 105/62 Pulse Ox 90 93 93 O2 Delivery Nasal Cannula Nasal Cannula Nasal Cannula O2 Flow Rate 4.0 4.0 4.0 Intake and Output 05/10/19 05/10/19 05/11/19 15:00 23:00 07:00 Intake Total 850 ml 300 ml Output Total 350 ml 551 ml Balance -350 ml 299 ml 300 ml TETO LEVINE MD May 11, 2019 12:16
[2019-05-11] MEDS: ANTI-COAG MONITOR BY PHARMACY. MC PRN (14:56)
[2019-05-11 15:00] VITALS: BP 91/68
[2019-05-11 15:21] LABS: HCO3 ABG 23 mmol/L (21-28); PCO2 ABG 36 mmHg (35-46); PO2 ABG 67 mmHg (75-108); SAT O2 ABG 93 % (92-99)
[2019-05-11 19:57] VITALS: BP 103/85
[2019-05-11] MEDS: ATORVASTATIN CALCIUM 20 MG TABLET PO SCH (21:00)
[2019-05-11] MEDS: MONTELUKAST SODIUM 10 MG TABLET. PO SCH (21:01)
[2019-05-12 00:29] VITALS: BP 100/59
[2019-05-12 04:50] VITALS: BP 95/56
[2019-05-12 05:02] LABS: BASO % 0 % (0-3); EOS # 0.7 x10^3/uL (0.0-0.7); EOS % 11 % (0-3); HEMATOCRIT 27.2 % (36.0-47.0); HEMOGLOBIN 9.2 g/dL (12.0-15.5); LYMPH # 0.7 x10^3/uL (1.0-4.8); LYMPH % 11 % (24-48); MEAN CORPUSCULAR HEMOGLOBIN 30 pg (25-35); MEAN CORPUSCULAR HGB CONC 34 g/dL (31-37); MEAN CORPUSCULAR VOLUME 89 fL (79-100); MONO # 0.3 x10^3/uL (0.0-1.1); MONO % 5 % (0-9); NEUT # 4.5 x10^3/uL (1.8-7.7); NEUT % 73 % (31-73); PLATELET COUNT 102 x10^3/uL (140-400); RED BLOOD COUNT 3.05 x10^6/uL (3.50-5.40); RED CELL DISTRIBUTION WIDTH 16.7 % (11.5-14.5); WHITE BLOOD COUNT 6.1 x10^3/uL (4.0-11.0)
[2019-05-12 05:44] LABS: ALBUMIN 1.8 g/dL (3.4-5.0); ALBUMIN/GLOBULIN RATIO 0.5 (1.0-1.7); CREATININE 0.5 mg/dL (0.6-1.0); GFR 131.1; POTASSIUM 3.4 mmol/L (3.5-5.1); TOTAL BILIRUBIN 0.5 mg/dL (0.2-1.0); TOTAL PROTEIN 5.6 g/dL (6.4-8.2)
[2019-05-12 08:06] VITALS: BP 100/48
[2019-05-12] MEDS: IPRATRPIUM/ALBUTEROL 0.5/2.5MG 3 ML NEBU. NEB SCH ×4 (08:29→19:10)
[2019-05-12] MEDS: BUDESONIDE 0.5 MG/2 ML NEBU. NEB SCH ×2 (08:29→19:10)
[2019-05-12] MEDS: TOPIRAMATE 100 MG TABLET. PO SCH ×2 (09:02→21:13)
[2019-05-12] MEDS: VENLAFAXINE 75 MG TABLET. PO SCH ×3 (09:02→21:13)
[2019-05-12] MEDS: APIXABAN 5 MG TABLET. PO SCH ×2 (09:02→21:13)
[2019-05-12] MEDS: FAMOTIDINE 20 MG TABLET. PO SCH ×2 (09:02→21:12)
[2019-05-12] MEDS: CETIRIZINE HCL 10 MG TABLET. PO SCH (09:03)
[2019-05-12] MEDS: CARVEDILOL 6.25 MG TABLET. PO SCH ×2 (09:04→16:49)
[2019-05-12] MEDS: FLUTICASONE 50MCG/NASAL SPRAY 16GM BOTTLE. NS SCH (09:04)
--- NOTE | 2019-05-12 10:21 | PDOC ---
PROGRESS NOTES Subjective Subjective HPI - f/u of Stage 4 breast cancer ROS - confused Objective Objective Vital Signs Date Time Temp Pulse Resp B/P (MAP) Pulse Ox O2 Delivery O2 Flow Rate FiO2 05/12/19 09:04 65 100/48 05/12/19 08:32 95 Nasal Cannula 5.0 05/12/19 08:06 98.3 20 98.3 Intake and Output 05/12/19 07:00 Intake Total 200 ml Output Total 400 ml Balance -200 ml Intake Oral 200 ml Output Urine Total 400 ml # Voids 2 Physical Exam Heart: Normal S1, Normal S2 General: Alert, No acute distress Lungs: Clear to auscultation Neck: No JVD Assessment Assessment Problems Medical Problems: (1) HX: breast cancer Status: Acute (2) Hypokalemia Status: Acute (3) Internal jugular vein thrombosis Status: Acute IMPRESSION AND PLAN: 1. Stage 4 breast cancer with evidence of left-sided malignant pleural effusion, bone metastasis and liver metastasis and scattered pulmonary nodules, which may or may not be metastasis. She was started on palliative chemotherapy with Xeloda 2000 mg twice a day for 14 days on and 1 week off from 04/13/2019. She was started on cycle #2 on 05/04/2019. I have advised her to resume Xeloda once she has the medications obtained from home. She has worsening confusion and hence held xeloda 05/11/2019. I do not think it is related. 2. 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 I agreed to proceed with anticoagulation with heparin. I agree with Dr García to switch to Eliquis at the time of discharge. I d/w pt regarding choice of eliquis vs warfarin (warfarin has interaction with xeloda), reviewed risks and benefits and she prefers eliquis. I appreciate Neurology evaluation and consultation. Etiology is hypercoag state due to malignancy. MRI - 05/09/19: There is no evidence of recent infarct. There is now prominent fluid of the right mastoid air cells of uncertain sterility, also some fluid in the right middle ear cavity. There is now abnormal signal in the distal right transverse sinus as well as sigmoid sinus and right internal jugular bulb, evidence of occlusive venous thrombus. - There are some air-fluid levels of the maxillary sinuses as may be seen with acute sinusitis. - There is similar scattered minimal T2 and FLAIR hyperintense signal of the supratentorial parenchyma, may be due to nonspecific gliosis. - There is again heterogeneous signal of the clivus concerning for metastatic disease given history. 3. Bone metastasis. Continue supportive care. 4. Left-sided malignant pleural effusion status post thoracentesis on 04/16/2019. Continue to monitor. 5. Liver metastasis noted on CT scan of the chest, abdomen, and pelvis on 04/05/2019. 6. Delirium - probably from polypharmacy - d/c xanax, flexiril, neurontin, oxycontin, ambien, xeloda on 05/11/19. Ok to restart as needed. She is still confused. Neurology following. Comment Review of Relevant I have reviewed the following items danya (where applicable) has been applied. Labs Laboratory Tests Test 05/11/19 15:09 05/12/19 03:50 O2 Saturation 93 % (92-99) Arterial Blood pH 7.43 (7.35-7.45) Arterial Blood pCO2 at Patient Temp 36 mmHg (35-46) Arterial Blood pO2 at Patient Temp 67 mmHg (75-108) Arterial Blood HCO3 23 mmol/L (21-28) White Blood Count 6.1 x10^3/uL (4.0-11.0) Red Blood Count 3.05 x10^6/uL (3.50-5.40) Hemoglobin 9.2 g/dL (12.0-15.5) Hematocrit 27.2 % (36.0-47.0) Mean Corpuscular Volume 89 fL (79-100) Mean Corpuscular Hemoglobin 30 pg (25-35) Mean Corpuscular Hemoglobin Concent 34 g/dL (31-37) Red Cell Distribution Width 16.7 % (11.5-14.5) Platelet Count 102 x10^3/uL (140-400) Neutrophils (%) (Auto) 73 % (31-73) Lymphocytes (%) (Auto) 11 % (24-48) Monocytes (%) (Auto) 5 % (0-9) Eosinophils (%) (Auto) 11 % (0-3) Basophils (%) (Auto) 0 % (0-3) Neutrophils # (Auto) 4.5 x10^3/uL (1.8-7.7) Lymphocytes # (Auto) 0.7 x10^3/uL (1.0-4.8) Monocytes # (Auto) 0.3 x10^3/uL (0.0-1.1) Eosinophils # (Auto) 0.7 x10^3/uL (0.0-0.7) Basophils # (Auto) 0.0 x10^3/uL (0.0-0.2) Sodium Level 138 mmol/L (136-145) Potassium Level 3.4 mmol/L (3.5-5.1) Chloride Level 104 mmol/L (98-107) Carbon Dioxide Level 23 mmol/L (21-32) Anion Gap 11 (6-14) Blood Urea Nitrogen 8 mg/dL (7-20) Creatinine 0.5 mg/dL (0.6-1.0) Estimated GFR (Cockcroft-Gault) 131.1 BUN/Creatinine Ratio 16 (6-20) Glucose Level 104 mg/dL (70-99) Calcium Level 8.0 mg/dL (8.5-10.1) Total Bilirubin 0.5 mg/dL (0.2-1.0) Aspartate Amino Transf (AST/SGOT) 27 U/L (15-37) Alanine Aminotransferase (ALT/SGPT) 25 U/L (14-59) Alkaline Phosphatase 264 U/L (46-116) Total Protein 5.6 g/dL (6.4-8.2) Albumin 1.8 g/dL (3.4-5.0) Albumin/Globulin Ratio 0.5 (1.0-1.7) Laboratory Tests Test 05/11/19 15:09 05/12/19 03:50 O2 Saturation 93 % (92-99) Arterial Blood pH 7.43 (7.35-7.45) Arterial Blood pCO2 at Patient Temp 36 mmHg (35-46) Arterial Blood pO2 at Patient Temp 67 mmHg (75-108) Arterial Blood HCO3 23 mmol/L (21-28) White Blood Count 6.1 x10^3/uL (4.0-11.0) Red Blood Count 3.05 x10^6/uL (3.50-5.40) Hemoglobin 9.2 g/dL (12.0-15.5) Hematocrit 27.2 % (36.0-47.0) Mean Corpuscular Volume 89 fL (79-100) Mean Corpuscular Hemoglobin 30 pg (25-35) Mean Corpuscular Hemoglobin Concent 34 g/dL (31-37) Red Cell Distribution Width 16.7 % (11.5-14.5) Platelet Count 102 x10^3/uL (140-400) Neutrophils (%) (Auto) 73 % (31-73) Lymphocytes (%) (Auto) 11 % (24-48) Monocytes (%) (Auto) 5 % (0-9) Eosinophils (%) (Auto) 11 % (0-3) Basophils (%) (Auto) 0 % (0-3) Neutrophils # (Auto) 4.5 x10^3/uL (1.8-7.7) Lymphocytes # (Auto) 0.7 x10^3/uL (1.0-4.8) Monocytes # (Auto) 0.3 x10^3/uL (0.0-1.1) Eosinophils # (Auto) 0.7 x10^3/uL (0.0-0.7) Basophils # (Auto) 0.0 x10^3/uL (0.0-0.2) Sodium Level 138 mmol/L (136-145) Potassium Level 3.4 mmol/L (3.5-5.1) Chloride Level 104 mmol/L (98-107) Carbon Dioxide Level 23 mmol/L (21-32) Anion Gap 11 (6-14) Blood Urea Nitrogen 8 mg/dL (7-20) Creatinine 0.5 mg/dL (0.6-1.0) Estimated GFR (Cockcroft-Gault) 131.1 BUN/Creatinine Ratio 16 (6-20) Glucose Level 104 mg/dL (70-99) Calcium Level 8.0 mg/dL (8.5-10.1) Total Bilirubin 0.5 mg/dL (0.2-1.0) Aspartate Amino Transf (AST/SGOT) 27 U/L (15-37) Alanine Aminotransferase (ALT/SGPT) 25 U/L (14-59) Alkaline Phosphatase 264 U/L (46-116) Total Protein 5.6 g/dL (6.4-8.2) Albumin 1.8 g/dL (3.4-5.0) Albumin/Globulin Ratio 0.5 (1.0-1.7) Medications Current Medications Sodium Chloride 1,000 ml @ 1,000 mls/hr 1X ONCE IV Last administered on 05/06/19 19:55; Start 05/06/19 at 19:00; Stop 05/06/19 at 19:59; Status DC Dexamethasone Sodium Phosphate (Decadron) 10 mg 1X ONCE IVP Last administered on 05/06/19 19:57; Start 05/06/19 at 19:30; Stop 05/06/19 at 19:38; Status DC Orphenadrine Citrate (Norflex) 60 mg 1X ONCE IV Last administered on 05/06/19 19:57; Start 05/06/19 at 19:30; Stop 05/06/19 at 19:38; Status DC Ondansetron HCl (Zofran) 4 mg 1X ONCE IVP Last administered on 05/06/19 19:57; Start 05/06/19 at 19:30; Stop 05/06/19 at 19:38; Status DC Fentanyl Citrate (Fentanyl 2ml Vial) 50 mcg 1X ONCE IVP Last administered on 05/06/19at 20:02; Start 05/06/19 at 19:30; Stop 05/06/19 at 19:38; Status DC Aspirin (Sumi Aspirin) 325 mg 1X ONCE PO Last administered on 05/06/19at 20:37; Start 05/06/19 at 20:30; Stop 05/06/19 at 20:31; Status DC Heparin Sodium (Porcine) (Heparin Sodium) 6,900 unit 1X ONCE IV Last administered on 05/06/19at 21:36; Start 05/06/19 at 21:30; Stop 05/06/19 at 21:31; Status DC Heparin Sodium/ Dextrose 500 ml @ 0 mls/hr CONT PRN IV PER PROTOCOL Last administered on 05/07/19at 20:12; Start 05/06/19 at 21:00; Stop 05/08/19 at 08:30; Status DC Heparin Sodium (Porcine) (Heparin Sodium) 2,600 unit PRN Q6HRS PRN IV FOR UFH LEVEL LESS THAN 0.2; Start 05/06/19 at 21:00; Stop 05/08/19 at 14:13; Status DC Heparin Sodium (Porcine) (Heparin Sodium) 1,300 unit PRN Q6HRS PRN IV FOR UFH LEVEL 0.2 - 0.29; Start 05/06/19 at 21:00; Stop 05/08/19 at 14:13; Status DC Ondansetron HCl (Zofran) 4 mg PRN Q8HRS PRN IV NAUSEA/VOMITING 1ST CHOICE; Start 05/06/19 at 21:00; Stop 05/07/19 at 20:59; Status DC Fentanyl Citrate (Fentanyl 2ml Vial) 50 mcg PRN Q2HRS PRN IV SEVERE PAIN 7-10 Last administered on 05/08/19at 15:43; Start 05/06/19 at 21:00 Iohexol (Omnipaque 350 Mg/ml) 100 ml 1X ONCE IV Last administered on 05/06/19at 21:39; Start 05/06/19 at 21:15; Stop 05/06/19 at 21:16; Status DC Info (Anti-Coagulation Monitoring By Pharmacy) 1 each PRN DAILY PRN MC SEE COMMENTS Last administered on 05/11/19at 14:56; Start 05/06/19 at 21:15 Info (CONTRAST GIVEN -- Rx MONITORING) 1 each PRN DAILY PRN MC SEE COMMENTS; Start 05/06/19 at 21:15; Stop 05/08/19 at 21:14; Status DC Albuterol Sulfate (Ventolin Neb Soln) 2.5 mg PRN Q6HRS PRN INH SHORTNESS OF BREATH Last administered on 05/12/19at 02:11; Start 05/07/19 at 09:45 Alprazolam (Xanax) 0.5 mg PRN BID PRN PO ANXIETY Last administered on 05/08/19 19:57; Start 05/07/19 at 09:45; Stop 05/11/19 at 09:06; Status DC Atorvastatin Calcium (Lipitor) 20 mg QHS PO Last administered on 05/11/19 21 :00; Start 05/07/19 at 21:00 Carvedilol (Coreg) 6.25 mg BIDWMEALS PO Last administered on 05/12/19 09:04; Start 05/07/19 at 17:00 Cyclobenzaprine HCl (Flexeril) 10 mg TID PRN PRN PO MUSCLE SPASMS Last administered on 05/09/19at 22:09; Start 05/07/19 at 09:45; Stop 05/11/19 at 09:06; Status DC Albuterol/ Ipratropium (Duoneb) 3 ml RTQID NEB Last administered on 05/12/19 08:29; Start 05/07/19 at 13:00 Montelukast Sodium (Singulair) 10 mg HS PO Last administered on 05/11/19 21:01; Start 05/07/19 at 21:00 Topiramate (Topamax) 200 mg BID PO Last administered on 05/12/19 09:02; Start 05/07/19 at 10:00 Zolpidem Tartrate (Ambien) 5 mg PRN QHS PRN PO INSOMNIA Last administered on 05/07/19 21:13; Start 05/07/19 at 09:45; Stop 05/11/19 at 09:06; Status DC Sumatriptan Succinate (Imitrex) 100 mg PRN Q2HR PRN PO MIGRAINE HEADACHE Last administered on 05/09/19 22:10; Start 05/07/19 at 10:15 Famotidine (Pepcid) 20 mg BID PO Last administered on 05/12/19 09:02; Start 05/07/19 at 21:00 Fluticasone Propionate (Flonase) 2 spray DAILY NS Last administered on 05/12/19 09:04; Start 05/08/19 at 09:00 Non-Formulary Medication (Fluticasone/ Salmeterol (Advair 250-50 Diskus)) 1 inh BID IH ; Start 05/07/19 at 21:00; Status UNV Gabapentin (Neurontin) 300 mg TID PO Last administered on 05/10/19 21:37; Start 05/07/19 at 14:00; Stop 05/11/19 at 09:06; Status DC Cetirizine HCl (ZyrTEC) 10 mg DAILY PO Last administered on 05/12/19 09:03; Start 05/08/19 at 09:00 Oxycodone HCl (Roxicodone) 10 mg PRN Q6HRS PRN PO PAIN Last administered on 05/09/19 22:10; Start 05/07/19 at 10:00 Oxycodone HCl (OxyCONTIN) 20 mg Q12HR PO Last administered on 10/31/19at 21:36; Start 05/07/19 at 10:00; Stop 05/11/19 at 09:06; Status DC Prochlorperazine Maleate (Compazine) 10 mg PRN Q6HRS PRN PO NAUSEA/VOMITING Last administered on 05/09/19at 09:46; Start 05/07/19 at 10:30 Venlafaxine HCl (Effexor Xr) 225 mg DAILY PO Last administered on 05/09/19at 10:58; Start 05/07/19 at 10:00; Stop 05/10/19 at 08:02; Status DC Nicotine (Nicoderm Cq 21mg) 1 patch PRN DAILY PRN TD SMOKING CESSATION; Start 05/08/19 at 09:00 Budesonide (Pulmicort) 0.5 mg RTBID NEB Last administered on 05/12/19at 08:29; Start 05/07/19 at 11:00 Potassium Chloride/Water 100 ml @ 100 mls/hr Q1H IV Last administered on 05/07/19at 11:04; Start 05/07/19 at 10:30; Stop 05/07/19 at 11:41; Status DC Potassium Chloride (Klor-Con) 40 meq 1X ONCE PO Last administered on 05/07/19at 11:51; Start 05/07/19 at 11:45; Stop 05/07/19 at 11:46; Status DC Apixaban (Eliquis) 10 mg BID PO Last administered on 05/08/19at 10:32; Start 05/08/19 at 10:30; Stop 05/08/19 at 11:37; Status DC Potassium Chloride (Klor-Con) 40 meq 1X ONCE PO Last administered on 05/08/19at 09:34; Start 05/08/19 at 08:00; Stop 05/08/19 at 08:03; Status DC Apixaban (Eliquis) 5 mg BID PO ; Start 05/15/19 at 09:00; Stop 05/08/19 at 11:37; Status DC Warfarin Sodium (Coumadin Per Pharmacy) 1 each PRN DAILY PRN MC SEE COMMENTS Last administered on 05/08/19at 13:42; Start 05/08/19 at 11:45; Stop 05/08/19 at 13:52; Status DC Warfarin Sodium (Coumadin) 5 mg 1X WARF ONCE PO ; Start 05/08/19 at 16:00; Stop 05/08/19 at 13:52; Status DC Apixaban (Eliquis) 10 mg BID PO Last administered on 05/12/19at 09:02; Start 05/08/19 at 21:00; Stop 05/15/19 at 09:01 Apixaban (Eliquis) 5 mg BID PO ; Start 05/15/19 at 21:00 Non-Formulary Medication (Capecitabine (Xeloda)) 2,000 mg BIDWMEALS PO Last administered on 05/10/19at 17:00; Start 05/08/19 at 17:00; Stop 05/11/19 at 09:06; Status DC Gadoterate Meglumine (Dotarem) 15 ml 1X ONCE IVP Last administered on 05/09/19at 13:45; Start 05/09/19 at 13:45; Stop 05/09/19 at 13:46; Status DC Venlafaxine HCl (Effexor) 75 mg TID PO Last administered on 05/12/19at 09:02; Start 05/10/19 at 09:00 Active Scripts Active Ambien (Zolpidem Tartrate) 5 Mg Tablet 5 Mg PO PRN QHS PRN 30 Days [Nicotine 21MG] 1 PATCH Patch 1 Patch TD PRN DAILY PRN 30 Days Reported Xeloda (Capecitabine) 500 Mg Tablet 2,000 Mg PO BIDWMEALS Oxycontin (Oxycodone HCl) 20 Mg Tab.er.12h 20 Mg PO BID Pepcid (Famotidine) 40 Mg Tablet 40 Mg PO HS Compazine (Prochlorperazine Maleate) 10 Mg Tablet 10 Mg PO Q6HRS Topiramate 100 Mg Tablet 2 Tab PO BID Venlafaxine Hcl Er (Venlafaxine Hcl) 225 Mg Tab.er.24 1 Tab PO DAILY Xanax (Alprazolam) 0.5 Mg Tablet 1 Tab PO PRN BID PRN Gabapentin 600 Mg Tablet 300 Mg PO TID Levocetirizine Dihydrochloride 5 Mg Tablet 5 Mg PO HS Carvedilol (Carvedilol) 6.25 Mg Tablet 6.25 Mg PO BIDWMEALS Oxycodone Hcl Immed.release (Oxycodone Hcl) 10 Mg Tablet 10 Mg PO Q6HRS PRN Relpax (Eletriptan Hbr) 40 Mg Tablet 40 Mg PO PRN PRN Flonase Allergy Relief (Fluticasone Propionate) 9.9 Ml [place].susp 2 Sprays NS DAILY Duoneb 0.5-3(2.5) Mg/3 Ml (Albuterol/Ipratropium) 3 Ml Ampul.neb 3 Ml NEB QID Proair Hfa Inhaler (Albuterol Sulfate) 8.5 Gm Hfa.aer.ad 1 Puff INH PRN Q6HRS PRN Advair 250-50 Diskus (Fluticasone/Salmeterol) 1 Each Disk.w.dev 1 Inh IH BID Cyclobenzaprine Hcl 10 Mg Tablet 10 Mg PO TID PRN PRN Atorvastatin Calcium 40 Mg Tablet 20 Mg PO HS Singulair Tablet (Montelukast Sodium) 10 Mg Tablet 10 Mg PO HS Vitals/I & O Vital Sign - Last 24 Hours 05/11/19 05/11/19 05/11/19 05/11/19 10:40 11:06 11:07 11:39 Pulse 108 B/P (MAP) 105/62 Pulse Ox 90 93 O2 Delivery Nasal Cannula Nasal Cannula Nasal Cannula O2 Flow Rate 5.0 5.0 4.0 05/11/19 05/11/19 05/11/19 05/11/19 11:39 15:00 16:14 16:15 Temp 98.4 98.4 Pulse 59 Resp 20 B/P (MAP) 91/68 (76) Pulse Ox 93 90 90 O2 Delivery Nasal Cannula Nasal Cannula Nasal Cannula O2 Flow Rate 4.0 2.0 2.0 05/11/19 05/11/19 05/11/19 05/11/19 16:53 16:56 18:21 19:57 Temp 98.9 98.9 Pulse 59 102 B/P (MAP) 91/68 103/85 (91) Pulse Ox 97 92 91 O2 Delivery Nasal Cannula Nasal Cannula O2 Flow Rate 4.0 2.0 05/11/19 05/11/19 05/12/19 05/12/19 20:00 20:54 00:29 02:13 Temp 98.5 98.5 Pulse 100 Resp 20 B/P (MAP) 100/59 (73) Pulse Ox 92 91 78 O2 Delivery Nasal Cannula Nasal Cannula Nasal Cannula Room Air O2 Flow Rate 5.0 2.0 05/12/19 05/12/19 05/12/19 05/12/19 04:50 08:06 08:31 08:32 Temp 98.6 98.3 98.6 98.3 Pulse 98 65 Resp 20 20 B/P (MAP) 95/56 (69) 100/48 (65) Pulse Ox 90 93 95 95 O2 Delivery Nasal Cannula Nasal Cannula Nasal Cannula Nasal Cannula O2 Flow Rate 2.0 2.0 5.0 5.0 05/12/19 09:04 Pulse 65 B/P (MAP) 100/48 Intake and Output 05/11/19 05/11/19 05/12/19 15:00 23:00 07:00 Intake Total 200 ml Output Total 400 ml Balance -400 ml 200 ml Nutrition Consultation Dietary Evaluation: Recommendations by RD: Dietary education by RD, Increase Calorie Intake, Protein supplementation Comments: Continue w/regular diet as ordered Continue w/Ensure TID Provided pt w/oncology nutrition hanndouts and handout on ways to increase protein Expected Outcomes/Goals: PO intake to meet >75% est needs - not met, goal ongoing Interpretation of weight loss: >20% in 1 year Malnutrition Findings: Food and Nutrition Intake (Sev: <50% est energy req 5days Weight Status: Obese JEREMY MELO MD May 12, 2019 10:21
--- NOTE | 2019-05-12 12:23 | PDOC ---
PULMONARY PROGRESS NOTES Subjective Patient with metastatic breast cancer including left pleural effusion. She has jugular venous thrombosis on anticoagulation. she is confused. she denies increased shortness of breath. notes that she is short of breath with exertion but not changed. she does get up and go to the rest room with oxygen. NO COMPLAINTS MANCILLA ARE BETTER Vitals Vital Signs Date Time Temp Pulse Resp B/P (MAP) Pulse Ox O2 Delivery O2 Flow Rate FiO2 05/12/19 11:04 Nasal Cannula 5.0 05/12/19 09:04 65 100/48 05/12/19 08:32 95 05/12/19 08:06 98.3 20 98.3 ROS: No Nausea, No Chest Pain, No Abdominal Pain, No Increase Cough General: Alert Lungs: Crackles, Other (labored breathing on exam) Cardiovascular: S2 Abdomen: Soft, Non-tender Neuro Exam: Alert Extremities: No Edema Skin: Warm Labs Laboratory Tests Test 05/11/19 15:09 05/12/19 03:50 O2 Saturation 93 % (92-99) Arterial Blood pH 7.43 (7.35-7.45) Arterial Blood pCO2 at Patient Temp 36 mmHg (35-46) Arterial Blood pO2 at Patient Temp 67 mmHg (75-108) Arterial Blood HCO3 23 mmol/L (21-28) White Blood Count 6.1 x10^3/uL (4.0-11.0) Red Blood Count 3.05 x10^6/uL (3.50-5.40) Hemoglobin 9.2 g/dL (12.0-15.5) Hematocrit 27.2 % (36.0-47.0) Mean Corpuscular Volume 89 fL (79-100) Mean Corpuscular Hemoglobin 30 pg (25-35) Mean Corpuscular Hemoglobin Concent 34 g/dL (31-37) Red Cell Distribution Width 16.7 % (11.5-14.5) Platelet Count 102 x10^3/uL (140-400) Neutrophils (%) (Auto) 73 % (31-73) Lymphocytes (%) (Auto) 11 % (24-48) Monocytes (%) (Auto) 5 % (0-9) Eosinophils (%) (Auto) 11 % (0-3) Basophils (%) (Auto) 0 % (0-3) Neutrophils # (Auto) 4.5 x10^3/uL (1.8-7.7) Lymphocytes # (Auto) 0.7 x10^3/uL (1.0-4.8) Monocytes # (Auto) 0.3 x10^3/uL (0.0-1.1) Eosinophils # (Auto) 0.7 x10^3/uL (0.0-0.7) Basophils # (Auto) 0.0 x10^3/uL (0.0-0.2) Sodium Level 138 mmol/L (136-145) Potassium Level 3.4 mmol/L (3.5-5.1) Chloride Level 104 mmol/L (98-107) Carbon Dioxide Level 23 mmol/L (21-32) Anion Gap 11 (6-14) Blood Urea Nitrogen 8 mg/dL (7-20) Creatinine 0.5 mg/dL (0.6-1.0) Estimated GFR (Cockcroft-Gault) 131.1 BUN/Creatinine Ratio 16 (6-20) Glucose Level 104 mg/dL (70-99) Calcium Level 8.0 mg/dL (8.5-10.1) Total Bilirubin 0.5 mg/dL (0.2-1.0) Aspartate Amino Transf (AST/SGOT) 27 U/L (15-37) Alanine Aminotransferase (ALT/SGPT) 25 U/L (14-59) Alkaline Phosphatase 264 U/L (46-116) Total Protein 5.6 g/dL (6.4-8.2) Albumin 1.8 g/dL (3.4-5.0) Albumin/Globulin Ratio 0.5 (1.0-1.7) Laboratory Tests Test 05/11/19 15:09 05/12/19 03:50 O2 Saturation 93 % (92-99) Arterial Blood pH 7.43 (7.35-7.45) Arterial Blood pCO2 at Patient Temp 36 mmHg (35-46) Arterial Blood pO2 at Patient Temp 67 mmHg (75-108) Arterial Blood HCO3 23 mmol/L (21-28) White Blood Count 6.1 x10^3/uL (4.0-11.0) Red Blood Count 3.05 x10^6/uL (3.50-5.40) Hemoglobin 9.2 g/dL (12.0-15.5) Hematocrit 27.2 % (36.0-47.0) Mean Corpuscular Volume 89 fL (79-100) Mean Corpuscular Hemoglobin 30 pg (25-35) Mean Corpuscular Hemoglobin Concent 34 g/dL (31-37) Red Cell Distribution Width 16.7 % (11.5-14.5) Platelet Count 102 x10^3/uL (140-400) Neutrophils (%) (Auto) 73 % (31-73) Lymphocytes (%) (Auto) 11 % (24-48) Monocytes (%) (Auto) 5 % (0-9) Eosinophils (%) (Auto) 11 % (0-3) Basophils (%) (Auto) 0 % (0-3) Neutrophils # (Auto) 4.5 x10^3/uL (1.8-7.7) Lymphocytes # (Auto) 0.7 x10^3/uL (1.0-4.8) Monocytes # (Auto) 0.3 x10^3/uL (0.0-1.1) Eosinophils # (Auto) 0.7 x10^3/uL (0.0-0.7) Basophils # (Auto) 0.0 x10^3/uL (0.0-0.2) Sodium Level 138 mmol/L (136-145) Potassium Level 3.4 mmol/L (3.5-5.1) Chloride Level 104 mmol/L (98-107) Carbon Dioxide Level 23 mmol/L (21-32) Anion Gap 11 (6-14) Blood Urea Nitrogen 8 mg/dL (7-20) Creatinine 0.5 mg/dL (0.6-1.0) Estimated GFR (Cockcroft-Gault) 131.1 BUN/Creatinine Ratio 16 (6-20) Glucose Level 104 mg/dL (70-99) Calcium Level 8.0 mg/dL (8.5-10.1) Total Bilirubin 0.5 mg/dL (0.2-1.0) Aspartate Amino Transf (AST/SGOT) 27 U/L (15-37) Alanine Aminotransferase (ALT/SGPT) 25 U/L (14-59) Alkaline Phosphatase 264 U/L (46-116) Total Protein 5.6 g/dL (6.4-8.2) Albumin 1.8 g/dL (3.4-5.0) Albumin/Globulin Ratio 0.5 (1.0-1.7) Medications Active Scripts Medications Dose Route/Sig Max Daily Dose Days Date Category Ambien (Zolpidem Tartrate) 5 Mg Tablet 5 Mg PO PRN QHS PRN 30 04/19/19 Rx [Nicotine 21MG] 1 PATCH Patch 1 Patch TD PRN DAILY PRN 30 04/19/19 Rx Oxycontin (Oxycodone HCl) 20 Mg Tab.er.12h 20 Mg PO BID 04/16/19 Reported Pepcid (Famotidine) 40 Mg Tablet 40 Mg PO HS 03/06/19 Reported Compazine (Prochlorperazine Maleate) 10 Mg Tablet 10 Mg PO Q6HRS 03/06/19 Reported Topiramate 100 Mg Tablet 2 Tab PO BID 03/06/19 Reported Venlafaxine Hcl Er (Venlafaxine Hcl) 225 Mg Tab.er.24 1 Tab PO DAILY 09/05/18 Reported Xanax (Alprazolam) 0.5 Mg Tablet 1 Tab PO PRN BID PRN 09/05/18 Reported Gabapentin 600 Mg Tablet 300 Mg PO TID 06/09/18 Reported Levocetirizine Dihydrochloride 5 Mg Tablet 5 Mg PO HS 03/09/18 Reported Carvedilol (Carvedilol) 6.25 Mg Tablet 6.25 Mg PO BIDWMEALS 03/09/18 Reported Oxycodone Hcl Immed.release (Oxycodone Hcl) 10 Mg Tablet 10 Mg PO Q6HRS PRN 03/09/18 Reported Relpax (Eletriptan Hbr) 40 Mg Tablet 40 Mg PO PRN PRN 08/23/17 Reported Flonase Allergy Relief (Fluticasone Propionate) 9.9 Ml [place].susp 2 Sprays NS DAILY 08/23/17 Reported Duoneb 0.5-3(2.5) Mg/3 Ml (Albuterol/Ipratropium) 3 Ml Ampul.neb 3 Ml NEB QID 08/23/17 Reported Proair Hfa Inhaler (Albuterol Sulfate) 8.5 Gm Hfa.aer.ad 1 Puff INH PRN Q6HRS PRN 08/23/17 Reported Advair 250-50 Diskus (Fluticasone/Salmeterol) 1 Each Disk.w.dev 1 Inh IH BID 08/23/17 Reported Cyclobenzaprine Hcl 10 Mg Tablet 10 Mg PO TID PRN PRN 10/31/13 Reported Atorvastatin Calcium 40 Mg Tablet 20 Mg PO HS 10/31/13 Reported Singulair Tablet (Montelukast Sodium) 10 Mg Tablet 10 Mg PO HS 10/31/13 Reported Impression . 1. Left-sided loculated pleural effusion secondary to known stage 4 breast cancer. 2. Status post previous left-sided thoracentesis for pleural effusion. 3. Stage 4 breast cancer. 4. 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 5. Bony metastases. 6. Liver metastases. 7. Tobacco dependent. 8. Suspect chronic obstructive pulmonary disease. Plan . RESP STATUS IS COMPENSATED D/W WILL MONITOR FOR NOW D/C ANGELY Ash MW FOLLOW NEURO INPUT ON ANTICOAGULATION UP TO CHAIR DOMINGA MOLINA MD May 12, 2019 12:23
[2019-05-12 12:40] VITALS: BP 121/72
[2019-05-12 16:16] VITALS: BP 102/70
[2019-05-12 20:00] VITALS: BP 104/65
[2019-05-12] MEDS ORDERED: QUEtiapine 25 MG TABLET. PO SCH (21:00)
[2019-05-12] MEDS: MONTELUKAST SODIUM 10 MG TABLET. PO SCH (21:13)
[2019-05-12] MEDS: ATORVASTATIN CALCIUM 20 MG TABLET PO SCH (21:13)
[2019-05-12] MEDS: oxyCODONE IR 5 MG TABLET PO PRN (21:13)
[2019-05-13 00:19] VITALS: BP 119/66
[2019-05-13 04:04] VITALS: BP 87/51
[2019-05-13 04:46] LABS: BASO % 0 % (0-3); EOS # 0.7 x10^3/uL (0.0-0.7); EOS % 9 % (0-3); HEMATOCRIT 26.7 % (36.0-47.0); HEMOGLOBIN 8.9 g/dL (12.0-15.5); LYMPH # 1.2 x10^3/uL (1.0-4.8); LYMPH % 15 % (24-48); MEAN CORPUSCULAR HEMOGLOBIN 30 pg (25-35); MEAN CORPUSCULAR HGB CONC 34 g/dL (31-37); MEAN CORPUSCULAR VOLUME 89 fL (79-100); MONO # 0.4 x10^3/uL (0.0-1.1); MONO % 5 % (0-9); NEUT # 5.3 x10^3/uL (1.8-7.7); NEUT % 70 % (31-73); PLATELET COUNT 114 x10^3/uL (140-400); RED BLOOD COUNT 2.99 x10^6/uL (3.50-5.40); WHITE BLOOD COUNT 7.6 x10^3/uL (4.0-11.0)
[2019-05-13 05:03] LABS: ALBUMIN 1.8 g/dL (3.4-5.0); ALBUMIN/GLOBULIN RATIO 0.5 (1.0-1.7); CREATININE 0.6 mg/dL (0.6-1.0); GFR 106.3; POTASSIUM 3.2 mmol/L (3.5-5.1); TOTAL BILIRUBIN 0.4 mg/dL (0.2-1.0); TOTAL PROTEIN 5.6 g/dL (6.4-8.2)
[2019-05-13] MEDS: BUDESONIDE 0.5 MG/2 ML NEBU. NEB SCH (05:58)
[2019-05-13] MEDS: IPRATRPIUM/ALBUTEROL 0.5/2.5MG 3 ML NEBU. NEB SCH (05:58)
[2019-05-13 07:00] VITALS: BP 118/68
[2019-05-13] MEDS: oxyCODONE IR 5 MG TABLET PO PRN (08:13)
[2019-05-13] MEDS: TOPIRAMATE 100 MG TABLET. PO SCH (08:14)
[2019-05-13] MEDS: CARVEDILOL 6.25 MG TABLET. PO SCH (08:15)
[2019-05-13] MEDS: FAMOTIDINE 20 MG TABLET. PO SCH (08:15)
[2019-05-13] MEDS: APIXABAN 5 MG TABLET. PO SCH (08:16)
[2019-05-13] MEDS: CETIRIZINE HCL 10 MG TABLET. PO SCH (08:16)
[2019-05-13] MEDS: VENLAFAXINE 75 MG TABLET. PO SCH (08:16)
[2019-05-13] MEDS: FLUTICASONE 50MCG/NASAL SPRAY 16GM BOTTLE. NS SCH (09:00)
[2019-05-13] MEDS ORDERED: QUET25TA5 PO (10:57)
--- NOTE | 2019-05-13 10:58 | PDOC ---
PROGRESS NOTES Chief Complaint Chief Complaint LATE ENTRY, pt seen 05/12 Hyperdense appearance of the right sigmoid sinus, strongly favored to represent dural venous thrombosis Anemia Hypoxic respiratory failure Hypotension Hypokalemia Metastatic breast cancer Expanded appearance of the right internal jugular vein which could reflect th rombus Heterogenous sclerotic appearance of the osseous structures. Left pleural effusion Anxiety with depression Asthma Smoker Severe protein calorie malnutrition Confusion History of Present Illness History of Present Illness 05/12/2019, confused at times, not safe to DC home Pt was seen and examined. Pt reports still feeling bad, and confused. She reports dizziness, reports that she still feels weak. Plan: Can downgrade to med tele Consulted pulm for hypoxia, decreased left sided breath sounds - will need f/u of known left malignant pleural effusion Transition to eliquis 10mg BID for 7 days, then 5mg BID Middle ear effusion needs monitoring Vitals Vitals Vital Signs Date Time Temp Pulse Resp B/P (MAP) Pulse Ox O2 Delivery O2 Flow Rate FiO2 05/13/19 08:15 106 118/68 05/13/19 08:13 19 98 Nasal Cannula 5.0 05/13/19 07:00 97.9 97.9 Physical Exam General: Alert, No acute distress Heart: Normal S1, Normal S2 Lungs: Crackles, Other (labored breathing on exam) Abdomen: Normal bowel sounds, Soft, No tenderness, No hepatosplenomegaly, No masses Extremities: No clubbing, No cyanosis, No edema, Normal pulses, No tenderness /swelling Skin: No rashes, No breakdown, No significant lesion Labs LABS Laboratory Tests Test 05/13/19 04:15 White Blood Count 7.6 x10^3/uL (4.0-11.0) Red Blood Count 2.99 x10^6/uL (3.50-5.40) Hemoglobin 8.9 g/dL (12.0-15.5) Hematocrit 26.7 % (36.0-47.0) Mean Corpuscular Volume 89 fL (79-100) Mean Corpuscular Hemoglobin 30 pg (25-35) Mean Corpuscular Hemoglobin Concent 34 g/dL (31-37) Red Cell Distribution Width 17.0 % (11.5-14.5) Platelet Count 114 x10^3/uL (140-400) Neutrophils (%) (Auto) 70 % (31-73) Lymphocytes (%) (Auto) 15 % (24-48) Monocytes (%) (Auto) 5 % (0-9) Eosinophils (%) (Auto) 9 % (0-3) Basophils (%) (Auto) 0 % (0-3) Neutrophils # (Auto) 5.3 x10^3/uL (1.8-7.7) Lymphocytes # (Auto) 1.2 x10^3/uL (1.0-4.8) Monocytes # (Auto) 0.4 x10^3/uL (0.0-1.1) Eosinophils # (Auto) 0.7 x10^3/uL (0.0-0.7) Basophils # (Auto) 0.0 x10^3/uL (0.0-0.2) Sodium Level 143 mmol/L (136-145) Potassium Level 3.2 mmol/L (3.5-5.1) Chloride Level 111 mmol/L (98-107) Carbon Dioxide Level 22 mmol/L (21-32) Anion Gap 10 (6-14) Blood Urea Nitrogen 6 mg/dL (7-20) Creatinine 0.6 mg/dL (0.6-1.0) Estimated GFR (Cockcroft-Gault) 106.3 BUN/Creatinine Ratio 10 (6-20) Glucose Level 75 mg/dL (70-99) Calcium Level 8.0 mg/dL (8.5-10.1) Total Bilirubin 0.4 mg/dL (0.2-1.0) Aspartate Amino Transf (AST/SGOT) 23 U/L (15-37) Alanine Aminotransferase (ALT/SGPT) 26 U/L (14-59) Alkaline Phosphatase 243 U/L (46-116) Total Protein 5.6 g/dL (6.4-8.2) Albumin 1.8 g/dL (3.4-5.0) Albumin/Globulin Ratio 0.5 (1.0-1.7) Assessment and Plan Assessmemt and Plan Problems Medical Problems: (1) HX: breast cancer Status: Acute (2) Hypokalemia Status: Acute (3) Internal jugular vein thrombosis Status: Acute Comment Review of Relevant I have reviewed the following items dayna (where applicable) has been applied. Labs Laboratory Tests Test 05/11/19 15:09 05/12/19 03:50 05/13/19 04:15 O2 Saturation 93 % (92-99) Arterial Blood pH 7.43 (7.35-7.45) Arterial Blood pCO2 at Patient Temp 36 mmHg (35-46) Arterial Blood pO2 at Patient Temp 67 mmHg (75-108) Arterial Blood HCO3 23 mmol/L (21-28) White Blood Count 6.1 x10^3/uL (4.0-11.0) 7.6 x10^3/uL (4.0-11.0) Red Blood Count 3.05 x10^6/uL (3.50-5.40) 2.99 x10^6/uL (3.50-5.40) Hemoglobin 9.2 g/dL (12.0-15.5) 8.9 g/dL (12.0-15.5) Hematocrit 27.2 % (36.0-47.0) 26.7 % (36.0-47.0) Mean Corpuscular Volume 89 fL (79-100) 89 fL (79-100) Mean Corpuscular Hemoglobin 30 pg (25-35) 30 pg (25-35) Mean Corpuscular Hemoglobin Concent 34 g/dL (31-37) 34 g/dL (31-37) Red Cell Distribution Width 16.7 % (11.5-14.5) 17.0 % (11.5-14.5) Platelet Count 102 x10^3/uL (140-400) 114 x10^3/uL (140-400) Neutrophils (%) (Auto) 73 % (31-73) 70 % (31-73) Lymphocytes (%) (Auto) 11 % (24-48) 15 % (24-48) Monocytes (%) (Auto) 5 % (0-9) 5 % (0-9) Eosinophils (%) (Auto) 11 % (0-3) 9 % (0-3) Basophils (%) (Auto) 0 % (0-3) 0 % (0-3) Neutrophils # (Auto) 4.5 x10^3/uL (1.8-7.7) 5.3 x10^3/uL (1.8-7.7) Lymphocytes # (Auto) 0.7 x10^3/uL (1.0-4.8) 1.2 x10^3/uL (1.0-4.8) Monocytes # (Auto) 0.3 x10^3/uL (0.0-1.1) 0.4 x10^3/uL (0.0-1.1) Eosinophils # (Auto) 0.7 x10^3/uL (0.0-0.7) 0.7 x10^3/uL (0.0-0.7) Basophils # (Auto) 0.0 x10^3/uL (0.0-0.2) 0.0 x10^3/uL (0.0-0.2) Sodium Level 138 mmol/L (136-145) 143 mmol/L (136-145) Potassium Level 3.4 mmol/L (3.5-5.1) 3.2 mmol/L (3.5-5.1) Chloride Level 104 mmol/L (98-107) 111 mmol/L (98-107) Carbon Dioxide Level 23 mmol/L (21-32) 22 mmol/L (21-32) Anion Gap 11 (6-14) 10 (6-14) Blood Urea Nitrogen 8 mg/dL (7-20) 6 mg/dL (7-20) Creatinine 0.5 mg/dL (0.6-1.0) 0.6 mg/dL (0.6-1.0) Estimated GFR (Cockcroft-Gault) 131.1 106.3 BUN/Creatinine Ratio 16 (6-20) 10 (6-20) Glucose Level 104 mg/dL (70-99) 75 mg/dL (70-99) Calcium Level 8.0 mg/dL (8.5-10.1) 8.0 mg/dL (8.5-10.1) Total Bilirubin 0.5 mg/dL (0.2-1.0) 0.4 mg/dL (0.2-1.0) Aspartate Amino Transf (AST/SGOT) 27 U/L (15-37) 23 U/L (15-37) Alanine Aminotransferase (ALT/SGPT) 25 U/L (14-59) 26 U/L (14-59) Alkaline Phosphatase 264 U/L (46-116) 243 U/L (46-116) Total Protein 5.6 g/dL (6.4-8.2) 5.6 g/dL (6.4-8.2) Albumin 1.8 g/dL (3.4-5.0) 1.8 g/dL (3.4-5.0) Albumin/Globulin Ratio 0.5 (1.0-1.7) 0.5 (1.0-1.7) Laboratory Tests Test 05/13/19 04:15 White Blood Count 7.6 x10^3/uL (4.0-11.0) Red Blood Count 2.99 x10^6/uL (3.50-5.40) Hemoglobin 8.9 g/dL (12.0-15.5) Hematocrit 26.7 % (36.0-47.0) Mean Corpuscular Volume 89 fL (79-100) Mean Corpuscular Hemoglobin 30 pg (25-35) Mean Corpuscular Hemoglobin Concent 34 g/dL (31-37) Red Cell Distribution Width 17.0 % (11.5-14.5) Platelet Count 114 x10^3/uL (140-400) Neutrophils (%) (Auto) 70 % (31-73) Lymphocytes (%) (Auto) 15 % (24-48) Monocytes (%) (Auto) 5 % (0-9) Eosinophils (%) (Auto) 9 % (0-3) Basophils (%) (Auto) 0 % (0-3) Neutrophils # (Auto) 5.3 x10^3/uL (1.8-7.7) Lymphocytes # (Auto) 1.2 x10^3/uL (1.0-4.8) Monocytes # (Auto) 0.4 x10^3/uL (0.0-1.1) Eosinophils # (Auto) 0.7 x10^3/uL (0.0-0.7) Basophils # (Auto) 0.0 x10^3/uL (0.0-0.2) Sodium Level 143 mmol/L (136-145) Potassium Level 3.2 mmol/L (3.5-5.1) Chloride Level 111 mmol/L (98-107) Carbon Dioxide Level 22 mmol/L (21-32) Anion Gap 10 (6-14) Blood Urea Nitrogen 6 mg/dL (7-20) Creatinine 0.6 mg/dL (0.6-1.0) Estimated GFR (Cockcroft-Gault) 106.3 BUN/Creatinine Ratio 10 (6-20) Glucose Level 75 mg/dL (70-99) Calcium Level 8.0 mg/dL (8.5-10.1) Total Bilirubin 0.4 mg/dL (0.2-1.0) Aspartate Amino Transf (AST/SGOT) 23 U/L (15-37) Alanine Aminotransferase (ALT/SGPT) 26 U/L (14-59) Alkaline Phosphatase 243 U/L (46-116) Total Protein 5.6 g/dL (6.4-8.2) Albumin 1.8 g/dL (3.4-5.0) Albumin/Globulin Ratio 0.5 (1.0-1.7) Medications Current Medications Sodium Chloride 1,000 ml @ 1,000 mls/hr 1X ONCE IV Last administered on 05/06/19 19:55; Start 05/06/19 at 19:00; Stop 05/06/19 at 19:59; Status DC Dexamethasone Sodium Phosphate (Decadron) 10 mg 1X ONCE IVP Last administered on 05/06/19 19:57; Start 05/06/19 at 19:30; Stop 05/06/19 at 19:38; Status DC Orphenadrine Citrate (Norflex) 60 mg 1X ONCE IV Last administered on 05/06/19 19:57; Start 05/06/19 at 19:30; Stop 05/06/19 at 19:38; Status DC Ondansetron HCl (Zofran) 4 mg 1X ONCE IVP Last administered on 05/06/19 19:57; Start 05/06/19 at 19:30; Stop 05/06/19 at 19:38; Status DC Fentanyl Citrate (Fentanyl 2ml Vial) 50 mcg 1X ONCE IVP Last administered on 05/06/19 20:02; Start 05/06/19 at 19:30; Stop 05/06/19 at 19:38; Status DC Aspirin (Sumi Aspirin) 325 mg 1X ONCE PO Last administered on 05/06/19 20:37; Start 05/06/19 at 20:30; Stop 05/06/19 at 20:31; Status DC Heparin Sodium (Porcine) (Heparin Sodium) 6,900 unit 1X ONCE IV Last administered on 05/06/19at 21:36; Start 05/06/19 at 21:30; Stop 05/06/19 at 21:31; Status DC Heparin Sodium/ Dextrose 500 ml @ 0 mls/hr CONT PRN IV PER PROTOCOL Last administered on 05/07/19at 20:12; Start 05/06/19 at 21:00; Stop 05/08/19 at 08:30; Status DC Heparin Sodium (Porcine) (Heparin Sodium) 2,600 unit PRN Q6HRS PRN IV FOR UFH LEVEL LESS THAN 0.2; Start 05/06/19 at 21:00; Stop 05/08/19 at 14:13; Status DC Heparin Sodium (Porcine) (Heparin Sodium) 1,300 unit PRN Q6HRS PRN IV FOR UFH LEVEL 0.2 - 0.29; Start 05/06/19 at 21:00; Stop 05/08/19 at 14:13; Status DC Ondansetron HCl (Zofran) 4 mg PRN Q8HRS PRN IV NAUSEA/VOMITING 1ST CHOICE; Start 05/06/19 at 21:00; Stop 05/07/19 at 20:59; Status DC Fentanyl Citrate (Fentanyl 2ml Vial) 50 mcg PRN Q2HRS PRN IV SEVERE PAIN 7-10 Last administered on 05/08/19at 15:43; Start 05/06/19 at 21:00 Iohexol (Omnipaque 350 Mg/ml) 100 ml 1X ONCE IV Last administered on 05/06/19at 21:39; Start 05/06/19 at 21:15; Stop 05/06/19 at 21:16; Status DC Info (Anti-Coagulation Monitoring By Pharmacy) 1 each PRN DAILY PRN MC SEE COMMENTS Last administered on 05/11/19at 14:56; Start 05/06/19 at 21:15 Info (CONTRAST GIVEN -- Rx MONITORING) 1 each PRN DAILY PRN MC SEE COMMENTS; Start 05/06/19 at 21:15; Stop 05/08/19 at 21:14; Status DC Albuterol Sulfate (Ventolin Neb Soln) 2.5 mg PRN Q6HRS PRN INH SHORTNESS OF BREATH Last administered on 05/12/19at 02:11; Start 05/07/19 at 09:45 Alprazolam (Xanax) 0.5 mg PRN BID PRN PO ANXIETY Last administered on 05/08/19 19:57; Start 05/07/19 at 09:45; Stop 05/11/19 at 09:06; Status DC Atorvastatin Calcium (Lipitor) 20 mg QHS PO Last administered on 05/12/19 21:13; Start 05/07/19 at 21:00 Carvedilol (Coreg) 6.25 mg BIDWMEALS PO Last administered on 05/13/19 08:15; Start 05/07/19 at 17:00 Cyclobenzaprine HCl (Flexeril) 10 mg TID PRN PRN PO MUSCLE SPASMS Last administered on 05/09/19 22:09; Start 05/07/19 at 09:45; Stop 05/11/19 at 09:06; Status DC Albuterol/ Ipratropium (Duoneb) 3 ml RTQID NEB Last administered on 05/13/19 05:58; Start 05/07/19 at 13:00 Montelukast Sodium (Singulair) 10 mg HS PO Last administered on 05/12/19 21:13; Start 05/07/19 at 21:00 Topiramate (Topamax) 200 mg BID PO Last administered on 05/13/19 08:14; Start 05/07/19 at 10:00 Zolpidem Tartrate (Ambien) 5 mg PRN QHS PRN PO INSOMNIA Last administered on 05/07/19 21:13; Start 05/07/19 at 09:45; Stop 05/11/19 at 09:06; Status DC Sumatriptan Succinate (Imitrex) 100 mg PRN Q2HR PRN PO MIGRAINE HEADACHE Last administered on 05/09/19 22:10; Start 05/07/19 at 10:15 Famotidine (Pepcid) 20 mg BID PO Last administered on 05/13/19 08:15; Start 05/07/19 at 21:00 Fluticasone Propionate (Flonase) 2 spray DAILY NS Last administered on 05/12/19 09:04; Start 05/08/19 at 09:00 Non-Formulary Medication (Fluticasone/ Salmeterol (Advair 250-50 Diskus)) 1 inh BID IH ; Start 05/07/19 at 21:00; Status UNV Gabapentin (Neurontin) 300 mg TID PO Last administered on 05/10/19 21:37; Start 05/07/19 at 14:00; Stop 05/11/19 at 09:06; Status DC Cetirizine HCl (ZyrTEC) 10 mg DAILY PO Last administered on 05/13/19 08:16; Start 05/08/19 at 09:00 Oxycodone HCl (Roxicodone) 10 mg PRN Q6HRS PRN PO PAIN Last administered on 05/13/19 08:13; Start 05/07/19 at 10:00 Oxycodone HCl (OxyCONTIN) 20 mg Q12HR PO Last administered on 05/10/19at 21:36; Start 05/07/19 at 10:00; Stop 05/11/19 at 09:06; Status DC Prochlorperazine Maleate (Compazine) 10 mg PRN Q6HRS PRN PO NAUSEA/VOMITING Last administered on 05/09/19at 09:46; Start 05/07/19 at 10:30 Venlafaxine HCl (Effexor Xr) 225 mg DAILY PO Last administered on 05/09/19at 10:58; Start 05/07/19 at 10:00; Stop 05/10/19 at 08:02; Status DC Nicotine (Nicoderm Cq 21mg) 1 patch PRN DAILY PRN TD SMOKING CESSATION; Start 05/08/19 at 09:00 Budesonide (Pulmicort) 0.5 mg RTBID NEB Last administered on 05/13/19at 05:58; Start 05/07/19 at 11:00 Potassium Chloride/Water 100 ml @ 100 mls/hr Q1H IV Last administered on 05/07/19at 11:04; Start 05/07/19 at 10:30; Stop 05/07/19 at 11:41; Status DC Potassium Chloride (Klor-Con) 40 meq 1X ONCE PO Last administered on 05/07/19at 11:51; Start 05/07/19 at 11:45; Stop 05/07/19 at 11:46; Status DC Apixaban (Eliquis) 10 mg BID PO Last administered on 05/08/19at 10:32; Start 05/08/19 at 10:30; Stop 05/08/19 at 11:37; Status DC Potassium Chloride (Klor-Con) 40 meq 1X ONCE PO Last administered on at 09:34; Start 05/08/19 at 08:00; Stop 05/08/19 at 08:03; Status DC Apixaban (Eliquis) 5 mg BID PO ; Start 05/15/19 at 09:00; Stop 05/08/19 at 11:37; Status DC Warfarin Sodium (Coumadin Per Pharmacy) 1 each PRN DAILY PRN MC SEE COMMENTS Last administered on 05/08/19at 13:42; Start 05/08/19 at 11:45; Stop 05/08/19 at 13:52; Status DC Warfarin Sodium (Coumadin) 5 mg 1X WARF ONCE PO ; Start 05/08/19 at 16:00; Stop 05/08/19 at 13:52; Status DC Apixaban (Eliquis) 10 mg BID PO Last administered on 05/13/19at 08:16; Start 05/08/19 at 21:00; Stop 05/15/19 at 09:01 Apixaban (Eliquis) 5 mg BID PO ; Start 05/15/19 at 21:00 Non-Formulary Medication (Capecitabine (Xeloda)) 2,000 mg BIDWMEALS PO Last administered on 05/10/19at 17:00; Start 05/08/19 at 17:00; Stop 05/11/19 at 09:06; Status DC Gadoterate Meglumine (Dotarem) 15 ml 1X ONCE IVP Last administered on 05/09/19at 13:45; Start 05/09/19 at 13:45; Stop 05/09/19 at 13:46; Status DC Venlafaxine HCl (Effexor) 75 mg TID PO Last administered on 05/13/19at 08:16; Start 05/10/19 at 09:00 Quetiapine Fumarate (SEROquel) 50 mg HS PO Last administered on 05/12/19at 21:13; Start 05/12/19 at 21:00 Active Scripts Active Seroquel (Quetiapine Fumarate) 25 Mg Tablet 1 Tab PO QHS Ambien (Zolpidem Tartrate) 5 Mg Tablet 5 Mg PO PRN QHS PRN 30 Days [Nicotine 21MG] 1 PATCH Patch 1 Patch TD PRN DAILY PRN 30 Days Reported Xeloda (Capecitabine) 500 Mg Tablet 2,000 Mg PO BIDWMEALS Oxycontin (Oxycodone HCl) 20 Mg Tab.er.12h 20 Mg PO BID Pepcid (Famotidine) 40 Mg Tablet 40 Mg PO HS Compazine (Prochlorperazine Maleate) 10 Mg Tablet 10 Mg PO Q6HRS Topiramate 100 Mg Tablet 2 Tab PO BID Venlafaxine Hcl Er (Venlafaxine Hcl) 225 Mg Tab.er.24 1 Tab PO DAILY Xanax (Alprazolam) 0.5 Mg Tablet 1 Tab PO PRN BID PRN Gabapentin 600 Mg Tablet 300 Mg PO TID Levocetirizine Dihydrochloride 5 Mg Tablet 5 Mg PO HS Carvedilol (Carvedilol) 6.25 Mg Tablet 6.25 Mg PO BIDWMEALS Oxycodone Hcl Immed.release (Oxycodone Hcl) 10 Mg Tablet 10 Mg PO Q6HRS PRN Relpax (Eletriptan Hbr) 40 Mg Tablet 40 Mg PO PRN PRN Flonase Allergy Relief (Fluticasone Propionate) 9.9 Ml Panther Burn.susp 2 Sprays NS DAILY Duoneb 0.5-3(2.5) Mg/3 Ml (Albuterol/Ipratropium) 3 Ml Ampul.neb 3 Ml NEB QID Proair Hfa Inhaler (Albuterol Sulfate) 8.5 Gm Hfa.aer.ad 1 Puff INH PRN Q6HRS PRN Advair 250-50 Diskus (Fluticasone/Salmeterol) 1 Each Disk.w.dev 1 Inh IH BID Cyclobenzaprine Hcl 10 Mg Tablet 10 Mg PO TID PRN PRN Atorvastatin Calcium 40 Mg Tablet 20 Mg PO HS Singulair Tablet (Montelukast Sodium) 10 Mg Tablet 10 Mg PO HS Vitals/I & O Vital Sign - Last 24 Hours 05/12/19 05/12/19 05/12/19 05/12/19 11:04 12:40 15:28 16:16 Temp 98.2 98.4 98.2 98.4 Pulse 88 81 Resp 22 20 B/P (MAP) 121/72 (88) 102/70 (81) Pulse Ox 93 94 O2 Delivery Nasal Cannula Nasal Cannula Nasal Cannula Nasal Cannula O2 Flow Rate 5.0 2.0 5.0 2.0 05/12/19 05/12/19 05/12/19 05/12/19 16:49 19:11 20:00 20:00 Temp 98.3 98.3 Pulse 100 96 Resp 20 B/P (MAP) 109/67 104/65 (78) Pulse Ox 94 96 O2 Delivery Nasal Cannula Nasal Cannula Nasal Cannula O2 Flow Rate 5.0 2.0 5.0 05/12/19 05/12/19 05/13/19 05/13/19 21:13 22:15 00:19 04:04 Temp 97.9 97.8 97.9 97.8 Pulse 99 103 Resp 20 24 B/P (MAP) 119/66 (83) 87/51 (63) Pulse Ox 95 98 O2 Delivery Nasal Cannula Nasal Cannula Nasal Cannula Nasal Cannula O2 Flow Rate 5.0 5.0 2.0 2.0 05/13/19 05/13/19 05/13/19 05/13/19 05:59 07:00 08:00 08:13 Temp 97.9 97.9 Pulse 102 Resp 16 19 B/P (MAP) 118/68 (85) Pulse Ox 96 98 O2 Delivery Nasal Cannula Nasal Cannula Nasal Cannula Nasal Cannula O2 Flow Rate 5.0 2.0 5.0 5.0 05/13/19 08:15 Pulse 106 B/P (MAP) 118/68 Intake and Output 05/12/19 05/12/19 05/13/19 15:00 23:00 07:00 Intake Total 0 ml Balance 0 ml Nutrition Consultation Dietary Evaluation: Recommendations by RD: Dietary education by RD, Increase Calorie Intake, Protein supplementation Comments: Continue w/regular diet as ordered Continue w/Ensure TID Provided pt w/oncology nutrition hanndouts and handout on ways to increase protein Expected Outcomes/Goals: PO intake to meet >75% est needs - not met, goal ongoing Interpretation of weight loss: >20% in 1 year Malnutrition Findings: Food and Nutrition Intake (Sev: <50% est energy req 5days Weight Status: Obese KOJO KUMAR MD May 13, 2019 10:58
[2019-05-13 11:00] VITALS: BP 87/66
--- NOTE | 2019-05-13 13:03 | PDOC ---
PULMONARY PROGRESS NOTES Subjective Patient with metastatic breast cancer including left pleural effusion. She has jugular venous thrombosis on anticoagulation. she is confused at times but lucid today at my visit. she denies increased shortness of breath. notes that she is short of breath with exertion but not changed. she does get up and go to the rest room with oxygen. NO COMPLAINTS MANCILLA ARE BETTER Vitals Vital Signs Date Time Temp Pulse Resp B/P (MAP) Pulse Ox O2 Delivery O2 Flow Rate FiO2 05/13/19 11:00 98.7 98 16 87/66 (73) 95 Nasal Cannula 2.0 98.7 ROS: No Nausea, No Chest Pain, No Abdominal Pain, No Increase Cough General: Alert Lungs: Crackles, Other (labored breathing on exam) Cardiovascular: S2 Abdomen: Soft, Non-tender Neuro Exam: Alert Extremities: No Edema Skin: Warm Labs Laboratory Tests Test 05/11/19 15:09 05/12/19 03:50 05/13/19 04:15 O2 Saturation 93 % (92-99) Arterial Blood pH 7.43 (7.35-7.45) Arterial Blood pCO2 at Patient Temp 36 mmHg (35-46) Arterial Blood pO2 at Patient Temp 67 mmHg (75-108) Arterial Blood HCO3 23 mmol/L (21-28) White Blood Count 6.1 x10^3/uL (4.0-11.0) 7.6 x10^3/uL (4.0-11.0) Red Blood Count 3.05 x10^6/uL (3.50-5.40) 2.99 x10^6/uL (3.50-5.40) Hemoglobin 9.2 g/dL (12.0-15.5) 8.9 g/dL (12.0-15.5) Hematocrit 27.2 % (36.0-47.0) 26.7 % (36.0-47.0) Mean Corpuscular Volume 89 fL (79-100) 89 fL (79-100) Mean Corpuscular Hemoglobin 30 pg (25-35) 30 pg (25-35) Mean Corpuscular Hemoglobin Concent 34 g/dL (31-37) 34 g/dL (31-37) Red Cell Distribution Width 16.7 % (11.5-14.5) 17.0 % (11.5-14.5) Platelet Count 102 x10^3/uL (140-400) 114 x10^3/uL (140-400) Neutrophils (%) (Auto) 73 % (31-73) 70 % (31-73) Lymphocytes (%) (Auto) 11 % (24-48) 15 % (24-48) Monocytes (%) (Auto) 5 % (0-9) 5 % (0-9) Eosinophils (%) (Auto) 11 % (0-3) 9 % (0-3) Basophils (%) (Auto) 0 % (0-3) 0 % (0-3) Neutrophils # (Auto) 4.5 x10^3/uL (1.8-7.7) 5.3 x10^3/uL (1.8-7.7) Lymphocytes # (Auto) 0.7 x10^3/uL (1.0-4.8) 1.2 x10^3/uL (1.0-4.8) Monocytes # (Auto) 0.3 x10^3/uL (0.0-1.1) 0.4 x10^3/uL (0.0-1.1) Eosinophils # (Auto) 0.7 x10^3/uL (0.0-0.7) 0.7 x10^3/uL (0.0-0.7) Basophils # (Auto) 0.0 x10^3/uL (0.0-0.2) 0.0 x10^3/uL (0.0-0.2) Sodium Level 138 mmol/L (136-145) 143 mmol/L (136-145) Potassium Level 3.4 mmol/L (3.5-5.1) 3.2 mmol/L (3.5-5.1) Chloride Level 104 mmol/L (98-107) 111 mmol/L (98-107) Carbon Dioxide Level 23 mmol/L (21-32) 22 mmol/L (21-32) Anion Gap 11 (6-14) 10 (6-14) Blood Urea Nitrogen 8 mg/dL (7-20) 6 mg/dL (7-20) Creatinine 0.5 mg/dL (0.6-1.0) 0.6 mg/dL (0.6-1.0) Estimated GFR (Cockcroft-Gault) 131.1 106.3 BUN/Creatinine Ratio 16 (6-20) 10 (6-20) Glucose Level 104 mg/dL (70-99) 75 mg/dL (70-99) Calcium Level 8.0 mg/dL (8.5-10.1) 8.0 mg/dL (8.5-10.1) Total Bilirubin 0.5 mg/dL (0.2-1.0) 0.4 mg/dL (0.2-1.0) Aspartate Amino Transf (AST/SGOT) 27 U/L (15-37) 23 U/L (15-37) Alanine Aminotransferase (ALT/SGPT) 25 U/L (14-59) 26 U/L (14-59) Alkaline Phosphatase 264 U/L (46-116) 243 U/L (46-116) Total Protein 5.6 g/dL (6.4-8.2) 5.6 g/dL (6.4-8.2) Albumin 1.8 g/dL (3.4-5.0) 1.8 g/dL (3.4-5.0) Albumin/Globulin Ratio 0.5 (1.0-1.7) 0.5 (1.0-1.7) Laboratory Tests Test 05/13/19 04:15 White Blood Count 7.6 x10^3/uL (4.0-11.0) Red Blood Count 2.99 x10^6/uL (3.50-5.40) Hemoglobin 8.9 g/dL (12.0-15.5) Hematocrit 26.7 % (36.0-47.0) Mean Corpuscular Volume 89 fL (79-100) Mean Corpuscular Hemoglobin 30 pg (25-35) Mean Corpuscular Hemoglobin Concent 34 g/dL (31-37) Red Cell Distribution Width 17.0 % (11.5-14.5) Platelet Count 114 x10^3/uL (140-400) Neutrophils (%) (Auto) 70 % (31-73) Lymphocytes (%) (Auto) 15 % (24-48) Monocytes (%) (Auto) 5 % (0-9) Eosinophils (%) (Auto) 9 % (0-3) Basophils (%) (Auto) 0 % (0-3) Neutrophils # (Auto) 5.3 x10^3/uL (1.8-7.7) Lymphocytes # (Auto) 1.2 x10^3/uL (1.0-4.8) Monocytes # (Auto) 0.4 x10^3/uL (0.0-1.1) Eosinophils # (Auto) 0.7 x10^3/uL (0.0-0.7) Basophils # (Auto) 0.0 x10^3/uL (0.0-0.2) Sodium Level 143 mmol/L (136-145) Potassium Level 3.2 mmol/L (3.5-5.1) Chloride Level 111 mmol/L (98-107) Carbon Dioxide Level 22 mmol/L (21-32) Anion Gap 10 (6-14) Blood Urea Nitrogen 6 mg/dL (7-20) Creatinine 0.6 mg/dL (0.6-1.0) Estimated GFR (Cockcroft-Gault) 106.3 BUN/Creatinine Ratio 10 (6-20) Glucose Level 75 mg/dL (70-99) Calcium Level 8.0 mg/dL (8.5-10.1) Total Bilirubin 0.4 mg/dL (0.2-1.0) Aspartate Amino Transf (AST/SGOT) 23 U/L (15-37) Alanine Aminotransferase (ALT/SGPT) 26 U/L (14-59) Alkaline Phosphatase 243 U/L (46-116) Total Protein 5.6 g/dL (6.4-8.2) Albumin 1.8 g/dL (3.4-5.0) Albumin/Globulin Ratio 0.5 (1.0-1.7) Medications Active Scripts Medications Dose Route/Sig Max Daily Dose Days Date Category Ambien (Zolpidem Tartrate) 5 Mg Tablet 5 Mg PO PRN QHS PRN 30 04/19/19 Rx [Nicotine 21MG] 1 PATCH Patch 1 Patch TD PRN DAILY PRN 30 04/19/19 Rx Oxycontin (Oxycodone HCl) 20 Mg Tab.er.12h 20 Mg PO BID 04/16/19 Reported Pepcid (Famotidine) 40 Mg Tablet 40 Mg PO HS 03/06/19 Reported Compazine (Prochlorperazine Maleate) 10 Mg Tablet 10 Mg PO Q6HRS 03/06/19 Reported Topiramate 100 Mg Tablet 2 Tab PO BID 03/06/19 Reported Venlafaxine Hcl Er (Venlafaxine Hcl) 225 Mg Tab.er.24 1 Tab PO DAILY 09/05/18 Reported Xanax (Alprazolam) 0.5 Mg Tablet 1 Tab PO PRN BID PRN 09/05/18 Reported Gabapentin 600 Mg Tablet 300 Mg PO TID 06/09/18 Reported Levocetirizine Dihydrochloride 5 Mg Tablet 5 Mg PO HS 03/09/18 Reported Carvedilol (Carvedilol) 6.25 Mg Tablet 6.25 Mg PO BIDWMEALS 03/09/18 Reported Oxycodone Hcl Immed.release (Oxycodone Hcl) 10 Mg Tablet 10 Mg PO Q6HRS PRN 03/09/18 Reported Relpax (Eletriptan Hbr) 40 Mg Tablet 40 Mg PO PRN PRN 08/23/17 Reported Flonase Allergy Relief (Fluticasone Propionate) 9.9 Ml [place].susp 2 Sprays NS DAILY 08/23/17 Reported Duoneb 0.5-3(2.5) Mg/3 Ml (Albuterol/Ipratropium) 3 Ml Ampul.neb 3 Ml NEB QID 08/23/17 Reported Proair Hfa Inhaler (Albuterol Sulfate) 8.5 Gm Hfa.aer.ad 1 Puff INH PRN Q6HRS PRN 08/23/17 Reported Advair 250-50 Diskus (Fluticasone/Salmeterol) 1 Each Disk.w.dev 1 Inh IH BID 08/23/17 Reported Cyclobenzaprine Hcl 10 Mg Tablet 10 Mg PO TID PRN PRN 10/31/13 Reported Atorvastatin Calcium 40 Mg Tablet 20 Mg PO HS 10/31/13 Reported Singulair Tablet (Montelukast Sodium) 10 Mg Tablet 10 Mg PO HS 10/31/13 Reported Impression . 1. Left-sided loculated pleural effusion secondary to known stage 4 breast cancer. 2. Status post previous left-sided thoracentesis for pleural effusion. 3. Stage 4 breast cancer. 4. 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 5. Bony metastases. 6. Liver metastases. 7. Tobacco dependent. 8. Suspect chronic obstructive pulmonary disease. Plan . RESP STATUS IS COMPENSATED D/W WILL MONITOR FOR NOW D/C ANGELY 6 MW FOLLOW NEURO INPUT ON ANTICOAGULATION UP TO CHAIR DOMINGA MOLINA MD May 13, 2019 13:03
[2019-05-13 14:06] VITALS: BP 99/52
--- NOTE | 2019-05-13 14:20 | NUR ---
The patient's BP was 88/66 HR 98, she's awake, alert and oriented. Reassessed VS BP was 99/52 HR 89 (right arm) on supine position. The patient has no new complaints. Paged Dr. Kee at [phone], order received to decrease dose of carvedilol to 3.125 mg BID.
[2019-05-13] MEDS: ANTI-COAG MONITOR BY PHARMACY. MC PRN (14:22)
--- NOTE | 2019-05-13 14:23 | NUR ---
The patient's O2 sat ranges 95 to 98% at 5 liters/min of oxygen per nasal cannula.
--- NOTE | 2019-05-13 15:19 | PDOC ---
PROGRESS NOTES Subjective Subjective HPI - f/u of Stage 4 breast cancer ROS - no confusion today Objective Objective Vital Signs Date Time Temp Pulse Resp B/P (MAP) Pulse Ox O2 Delivery O2 Flow Rate FiO2 05/13/19 14:06 89 99/52 (68) 05/13/19 11:00 98.7 16 95 Nasal Cannula 2.0 98.7 Intake and Output 05/13/19 07:00 Intake Total 0 ml Balance 0 ml Intake Oral 0 ml # Voids 2 Physical Exam Heart: Normal S1, Normal S2 General: Alert, Oriented X3, No acute distress Lungs: Clear to auscultation Neuro: Normal speech Psych/Mental Status: Mental status NL Assessment Assessment Problems Medical Problems: (1) HX: breast cancer Status: Acute (2) Hypokalemia Status: Acute (3) Internal jugular vein thrombosis Status: Acute IMPRESSION AND PLAN: 1. Stage 4 breast cancer with evidence of left-sided malignant pleural effusion, bone metastasis and liver metastasis and scattered pulmonary nodules, which may or may not be metastasis. She was started on palliative chemotherapy with Xeloda 2000 mg twice a day for 14 days on and 1 week off from 04/13/2019. She was started on cycle #2 on 05/04/2019. I have advised her to resume Xeloda once she has the medications obtained from home. She has worsening confusion and hence held xeloda 05/11/2019. I do not think it is related. Confusion resolved, resume xeloda 05/14/19. 2. 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 I agreed to proceed with anticoagulation with heparin. I agree with Dr García to switch to Eliquis at the time of discharge. I d/w pt regarding choice of eliquis vs warfarin (warfarin has interaction with xeloda), reviewed risks and benefits and she prefers eliquis. I appreciate Neurology evaluation and consultation. Etiology is hypercoag state due to malignancy. MRI - 05/09/19: There is no evidence of recent infarct. There is now prominent fluid of the right mastoid air cells of uncertain sterility, also some fluid in the right middle ear cavity. There is now abnormal signal in the distal right transverse sinus as well as sigmoid sinus and right internal jugular bulb, evidence of occlusive venous thrombus. - There are some air-fluid levels of the maxillary sinuses as may be seen with acute sinusitis. - There is similar scattered minimal T2 and FLAIR hyperintense signal of the supratentorial parenchyma, may be due to nonspecific gliosis. - There is again heterogeneous signal of the clivus concerning for metastatic disease given history. 3. Bone metastasis. Continue supportive care. 4. Left-sided malignant pleural effusion status post thoracentesis on 04/16/2019. Continue to monitor. 5. Liver metastasis noted on CT scan of the chest, abdomen, and pelvis on 04/05/2019. 6. Delirium - probably from polypharmacy - d/c xanax, flexiril, neurontin, oxy contin, ambien, xeloda on 05/11/19. Ok to restart as needed. Confusion resolved. Agree with discharge plans. Comment Review of Relevant I have reviewed the following items danya (where applicable) has been applied. Labs Laboratory Tests Test 05/12/19 03:50 05/13/19 04:15 White Blood Count 6.1 x10^3/uL (4.0-11.0) 7.6 x10^3/uL (4.0-11.0) Red Blood Count 3.05 x10^6/uL (3.50-5.40) 2.99 x10^6/uL (3.50-5.40) Hemoglobin 9.2 g/dL (12.0-15.5) 8.9 g/dL (12.0-15.5) Hematocrit 27.2 % (36.0-47.0) 26.7 % (36.0-47.0) Mean Corpuscular Volume 89 fL (79-100) 89 fL (79-100) Mean Corpuscular Hemoglobin 30 pg (25-35) 30 pg (25-35) Mean Corpuscular Hemoglobin Concent 34 g/dL (31-37) 34 g/dL (31-37) Red Cell Distribution Width 16.7 % (11.5-14.5) 17.0 % (11.5-14.5) Platelet Count 102 x10^3/uL (140-400) 114 x10^3/uL (140-400) Neutrophils (%) (Auto) 73 % (31-73) 70 % (31-73) Lymphocytes (%) (Auto) 11 % (24-48) 15 % (24-48) Monocytes (%) (Auto) 5 % (0-9) 5 % (0-9) Eosinophils (%) (Auto) 11 % (0-3) 9 % (0-3) Basophils (%) (Auto) 0 % (0-3) 0 % (0-3) Neutrophils # (Auto) 4.5 x10^3/uL (1.8-7.7) 5.3 x10^3/uL (1.8-7.7) Lymphocytes # (Auto) 0.7 x10^3/uL (1.0-4.8) 1.2 x10^3/uL (1.0-4.8) Monocytes # (Auto) 0.3 x10^3/uL (0.0-1.1) 0.4 x10^3/uL (0.0-1.1) Eosinophils # (Auto) 0.7 x10^3/uL (0.0-0.7) 0.7 x10^3/uL (0.0-0.7) Basophils # (Auto) 0.0 x10^3/uL (0.0-0.2) 0.0 x10^3/uL (0.0-0.2) Sodium Level 138 mmol/L (136-145) 143 mmol/L (136-145) Potassium Level 3.4 mmol/L (3.5-5.1) 3.2 mmol/L (3.5-5.1) Chloride Level 104 mmol/L (98-107) 111 mmol/L (98-107) Carbon Dioxide Level 23 mmol/L (21-32) 22 mmol/L (21-32) Anion Gap 11 (6-14) 10 (6-14) Blood Urea Nitrogen 8 mg/dL (7-20) 6 mg/dL (7-20) Creatinine 0.5 mg/dL (0.6-1.0) 0.6 mg/dL (0.6-1.0) Estimated GFR (Cockcroft-Gault) 131.1 106.3 BUN/Creatinine Ratio 16 (6-20) 10 (6-20) Glucose Level 104 mg/dL (70-99) 75 mg/dL (70-99) Calcium Level 8.0 mg/dL (8.5-10.1) 8.0 mg/dL (8.5-10.1) Total Bilirubin 0.5 mg/dL (0.2-1.0) 0.4 mg/dL (0.2-1.0) Aspartate Amino Transf (AST/SGOT) 27 U/L (15-37) 23 U/L (15-37) Alanine Aminotransferase (ALT/SGPT) 25 U/L (14-59) 26 U/L (14-59) Alkaline Phosphatase 264 U/L (46-116) 243 U/L (46-116) Total Protein 5.6 g/dL (6.4-8.2) 5.6 g/dL (6.4-8.2) Albumin 1.8 g/dL (3.4-5.0) 1.8 g/dL (3.4-5.0) Albumin/Globulin Ratio 0.5 (1.0-1.7) 0.5 (1.0-1.7) Laboratory Tests Test 05/13/19 04:15 White Blood Count 7.6 x10^3/uL (4.0-11.0) Red Blood Count 2.99 x10^6/uL (3.50-5.40) Hemoglobin 8.9 g/dL (12.0-15.5) Hematocrit 26.7 % (36.0-47.0) Mean Corpuscular Volume 89 fL (79-100) Mean Corpuscular Hemoglobin 30 pg (25-35) Mean Corpuscular Hemoglobin Concent 34 g/dL (31-37) Red Cell Distribution Width 17.0 % (11.5-14.5) Platelet Count 114 x10^3/uL (140-400) Neutrophils (%) (Auto) 70 % (31-73) Lymphocytes (%) (Auto) 15 % (24-48) Monocytes (%) (Auto) 5 % (0-9) Eosinophils (%) (Auto) 9 % (0-3) Basophils (%) (Auto) 0 % (0-3) Neutrophils # (Auto) 5.3 x10^3/uL (1.8-7.7) Lymphocytes # (Auto) 1.2 x10^3/uL (1.0-4.8) Monocytes # (Auto) 0.4 x10^3/uL (0.0-1.1) Eosinophils # (Auto) 0.7 x10^3/uL (0.0-0.7) Basophils # (Auto) 0.0 x10^3/uL (0.0-0.2) Sodium Level 143 mmol/L (136-145) Potassium Level 3.2 mmol/L (3.5-5.1) Chloride Level 111 mmol/L (98-107) Carbon Dioxide Level 22 mmol/L (21-32) Anion Gap 10 (6-14) Blood Urea Nitrogen 6 mg/dL (7-20) Creatinine 0.6 mg/dL (0.6-1.0) Estimated GFR (Cockcroft-Gault) 106.3 BUN/Creatinine Ratio 10 (6-20) Glucose Level 75 mg/dL (70-99) Calcium Level 8.0 mg/dL (8.5-10.1) Total Bilirubin 0.4 mg/dL (0.2-1.0) Aspartate Amino Transf (AST/SGOT) 23 U/L (15-37) Alanine Aminotransferase (ALT/SGPT) 26 U/L (14-59) Alkaline Phosphatase 243 U/L (46-116) Total Protein 5.6 g/dL (6.4-8.2) Albumin 1.8 g/dL (3.4-5.0) Albumin/Globulin Ratio 0.5 (1.0-1.7) Medications Current Medications Sodium Chloride 1,000 ml @ 1,000 mls/hr 1X ONCE IV Last administered on 05/06/19at 19:55; Start 05/06/19 at 19:00; Stop 05/06/19 at 19:59; Status DC Dexamethasone Sodium Phosphate (Decadron) 10 mg 1X ONCE IVP Last administered on 05/06/19 19:57; Start 05/06/19 at 19:30; Stop 05/06/19 at 19:38; Status DC Orphenadrine Citrate (Norflex) 60 mg 1X ONCE IV Last administered on 05/06/19at 19:57; Start 05/06/19 at 19:30; Stop 05/06/19 at 19:38; Status DC Ondansetron HCl (Zofran) 4 mg 1X ONCE IVP Last administered on 05/06/19at 19:57; Start 05/06/19 at 19:30; Stop 05/06/19 at 19:38; Status DC Fentanyl Citrate (Fentanyl 2ml Vial) 50 mcg 1X ONCE IVP Last administered on 05/06/19at 20:02; Start 05/06/19 at 19:30; Stop 05/06/19 at 19:38; Status DC Aspirin (Sumi Aspirin) 325 mg 1X ONCE PO Last administered on 05/06/19at 20:37; Start 05/06/19 at 20:30; Stop 05/06/19 at 20:31; Status DC Heparin Sodium (Porcine) (Heparin Sodium) 6,900 unit 1X ONCE IV Last administered on 05/06/19at 21:36; Start 05/06/19 at 21:30; Stop 05/06/19 at 21:31; Status DC Heparin Sodium/ Dextrose 500 ml @ 0 mls/hr CONT PRN IV PER PROTOCOL Last administered on 05/07/19at 20:12; Start 05/06/19 at 21:00; Stop 05/08/19 at 08:30; Status DC Heparin Sodium (Porcine) (Heparin Sodium) 2,600 unit PRN Q6HRS PRN IV FOR UFH LEVEL LESS THAN 0.2; Start 05/06/19 at 21:00; Stop 05/08/19 at 14:13; Status DC Heparin Sodium (Porcine) (Heparin Sodium) 1,300 unit PRN Q6HRS PRN IV FOR UFH LEVEL 0.2 - 0.29; Start 05/06/19 at 21:00; Stop 05/08/19 at 14:13; Status DC Ondansetron HCl (Zofran) 4 mg PRN Q8HRS PRN IV NAUSEA/VOMITING 1ST CHOICE; Start 05/06/19 at 21:00; Stop 05/07/19 at 20:59; Status DC Fentanyl Citrate (Fentanyl 2ml Vial) 50 mcg PRN Q2HRS PRN IV SEVERE PAIN 7-10 Last administered on 05/08/19at 15:43; Start 05/06/19 at 21:00 Iohexol (Omnipaque 350 Mg/ml) 100 ml 1X ONCE IV Last administered on 05/06/19at 21:39; Start 05/06/19 at 21:15; Stop 05/06/19 at 21:16; Status DC Info (Anti-Coagulation Monitoring By Pharmacy) 1 each PRN DAILY PRN MC SEE COMMENTS Last administered on 05/13/19 14:22; Start 05/06/19 at 21:15 Info (CONTRAST GIVEN -- Rx MONITORING) 1 each PRN DAILY PRN MC SEE COMMENTS; Start 05/06/19 at 21:15; Stop 05/08/19 at 21:14; Status DC Albuterol Sulfate (Ventolin Neb Soln) 2.5 mg PRN Q6HRS PRN INH SHORTNESS OF BREATH Last administered on 05/12/19 02:11; Start 05/07/19 at 09:45 Alprazolam (Xanax) 0.5 mg PRN BID PRN PO ANXIETY Last administered on 05/08/19 19:57; Start 05/07/19 at 09:45; Stop 05/11/19 at 09:06; Status DC Atorvastatin Calcium (Lipitor) 20 mg QHS PO Last administered on 05/12/19 21:13; Start 05/07/19 at 21:00 Carvedilol (Coreg) 6.25 mg BIDWMEALS PO Last administered on 05/13/19 08:15; Start 05/07/19 at 17:00 Cyclobenzaprine HCl (Flexeril) 10 mg TID PRN PRN PO MUSCLE SPASMS Last administered on 05/09/19 22:09; Start 05/07/19 at 09:45; Stop 05/11/19 at 09:06; Status DC Albuterol/ Ipratropium (Duoneb) 3 ml RTQID NEB Last administered on 05/13/19 05:58; Start 05/07/19 at 13:00 Montelukast Sodium (Singulair) 10 mg HS PO Last administered on 05/12/19 21:13; Start 05/07/19 at 21:00 Topiramate (Topamax) 200 mg BID PO Last administered on 05/13/19 08:14; Start 05/07/19 at 10:00 Zolpidem Tartrate (Ambien) 5 mg PRN QHS PRN PO INSOMNIA Last administered on 05/07/19 21:13; Start 05/07/19 at 09:45; Stop 05/11/19 at 09:06; Status DC Sumatriptan Succinate (Imitrex) 100 mg PRN Q2HR PRN PO MIGRAINE HEADACHE Last administered on 05/09/19 22:10; Start 05/07/19 at 10:15 Famotidine (Pepcid) 20 mg BID PO Last administered on 05/13/19 08:15; Start 05/07/19 at 21:00 Fluticasone Propionate (Flonase) 2 spray DAILY NS Last administered on 05/12/19 09:04; Start 05/08/19 at 09:00 Non-Formulary Medication (Fluticasone/ Salmeterol (Advair 250-50 Diskus)) 1 inh BID IH ; Start 05/07/19 at 21:00; Status UNV Gabapentin (Neurontin) 300 mg TID PO Last administered on 05/10/19 21:37; Start 05/07/19 at 14:00; Stop 05/11/19 at 09:06; Status DC Cetirizine HCl (ZyrTEC) 10 mg DAILY PO Last administered on 05/13/19 08:16; Start 05/08/19 at 09:00 Oxycodone HCl (Roxicodone) 10 mg PRN Q6HRS PRN PO PAIN Last administered on 05/13/19 08:13; Start 05/07/19 at 10:00 Oxycodone HCl (OxyCONTIN) 20 mg Q12HR PO Last administered on 05/10/19 21:36; Start 05/07/19 at 10:00; Stop 05/11/19 at 09:06; Status DC Prochlorperazine Maleate (Compazine) 10 mg PRN Q6HRS PRN PO NAUSEA/VOMITING Last administered on 05/09/19 09:46; Start 05/07/19 at 10:30 Venlafaxine HCl (Effexor Xr) 225 mg DAILY PO Last administered on 05/09/19 10:58; Start 05/07/19 at 10:00; Stop 05/10/19 at 08:02; Status DC Nicotine (Nicoderm Cq 21mg) 1 patch PRN DAILY PRN TD SMOKING CESSATION; Start 05/08/19 at 09:00 Budesonide (Pulmicort) 0.5 mg RTBID NEB Last administered on 05/13/19 05:58; Start 05/07/19 at 11:00 Potassium Chloride/Water 100 ml @ 100 mls/hr Q1H IV Last administered on 05/07/19at 11:04; Start 05/07/19 at 10:30; Stop 05/07/19 at 11:41; Status DC Potassium Chloride (Klor-Con) 40 meq 1X ONCE PO Last administered on 05/07/19at 11:51; Start 05/07/19 at 11:45; Stop 05/07/19 at 11:46; Status DC Apixaban (Eliquis) 10 mg BID PO Last administered on 05/08/19at 10:32; Start 05/08/19 at 10:30; Stop 05/08/19 at 11:37; Status DC Potassium Chloride (Klor-Con) 40 meq 1X ONCE PO Last administered on 05/08/19at 09:34; Start 05/08/19 at 08:00; Stop 05/08/19 at 08:03; Status DC Apixaban (Eliquis) 5 mg BID PO ; Start 05/15/19 at 09:00; Stop 05/08/19 at 11:37; Status DC Warfarin Sodium (Coumadin Per Pharmacy) 1 each PRN DAILY PRN MC SEE COMMENTS Last administered on 05/08/19at 13:42; Start 05/08/19 at 11:45; Stop 05/08/19 at 13:52; Status DC Warfarin Sodium (Coumadin) 5 mg 1X WARF ONCE PO ; Start 05/08/19 at 16:00; Stop 05/08/19 at 13:52; Status DC Apixaban (Eliquis) 10 mg BID PO Last administered on 05/13/19at 08:16; Start 05/08/19 at 21:00; Stop 05/15/19 at 09:01 Apixaban (Eliquis) 5 mg BID PO ; Start 05/15/19 at 21:00 Non-Formulary Medication (Capecitabine (Xeloda)) 2,000 mg BIDWMEALS PO Last administered on 05/10/19at 17:00; Start 05/08/19 at 17:00; Stop 05/11/19 at 09:06; Status DC Gadoterate Meglumine (Dotarem) 15 ml 1X ONCE IVP Last administered on 05/09/19at 13:45; Start 05/09/19 at 13:45; Stop 05/09/19 at 13:46; Status DC Venlafaxine HCl (Effexor) 75 mg TID PO Last administered on 05/13/19at 08:16; Start 05/10/19 at 09:00 Quetiapine Fumarate (SEROquel) 50 mg HS PO Last administered on 05/12/19at 21:13; Start 05/12/19 at 21:00 Active Scripts Active Seroquel (Quetiapine Fumarate) 25 Mg Tablet 1 Tab PO QHS Reported Xeloda (Capecitabine) 500 Mg Tablet 2,000 Mg PO BIDWMEALS Oxycontin (Oxycodone HCl) 20 Mg Tab.er.12h 20 Mg PO BID Pepcid (Famotidine) 40 Mg Tablet 40 Mg PO HS Compazine (Prochlorperazine Maleate) 10 Mg Tablet 10 Mg PO Q6HRS Topiramate 100 Mg Tablet 2 Tab PO BID Venlafaxine Hcl Er (Venlafaxine Hcl) 225 Mg Tab.er.24 1 Tab PO DAILY Xanax (Alprazolam) 0.5 Mg Tablet 1 Tab PO PRN BID PRN Levocetirizine Dihydrochloride 5 Mg Tablet 5 Mg PO HS Carvedilol (Carvedilol) 6.25 Mg Tablet 6.25 Mg PO BIDWMEALS Oxycodone Hcl Immed.release (Oxycodone Hcl) 10 Mg Tablet 10 Mg PO Q6HRS PRN Relpax (Eletriptan Hbr) 40 Mg Tablet 40 Mg PO PRN PRN Flonase Allergy Relief (Fluticasone Propionate) 9.9 Ml [place].susp 2 Sprays NS DAILY Duoneb 0.5-3(2.5) Mg/3 Ml (Albuterol/Ipratropium) 3 Ml Ampul.neb 3 Ml NEB QID Proair Hfa Inhaler (Albuterol Sulfate) 8.5 Gm Hfa.aer.ad 1 Puff INH PRN Q6HRS PRN Advair 250-50 Diskus (Fluticasone/Salmeterol) 1 Each Disk.w.dev 1 Inh IH BID Cyclobenzaprine Hcl 10 Mg Tablet 10 Mg PO TID PRN PRN Atorvastatin Calcium 40 Mg Tablet 20 Mg PO HS Singulair Tablet (Montelukast Sodium) 10 Mg Tablet 10 Mg PO HS Vitals/I & O Vital Sign - Last 24 Hours 05/12/19 05/12/19 05/12/19 05/12/19 15:28 16:16 16:49 19:11 Temp 98.4 98.4 Pulse 81 100 Resp 20 B/P (MAP) 102/70 (81) 109/67 Pulse Ox 94 94 O2 Delivery Nasal Cannula Nasal Cannula Nasal Cannula O2 Flow Rate 5.0 2.0 5.0 05/12/19 05/12/19 05/12/19 05/12/19 20:00 20:00 21:13 22:15 Temp 98.3 98.3 Pulse 96 Resp 20 B/P (MAP) 104/65 (78) Pulse Ox 96 O2 Delivery Nasal Cannula Nasal Cannula Nasal Cannula Nasal Cannula O2 Flow Rate 2.0 5.0 5.0 5.0 05/13/19 05/13/19 05/13/19 05/13/19 00:19 04:04 05:59 07:00 Temp 97.9 97.8 97.9 97.9 97.8 97.9 Pulse 99 103 102 Resp 20 24 16 B/P (MAP) 119/66 (83) 87/51 (63) 118/68 (85) Pulse Ox 95 98 96 O2 Delivery Nasal Cannula Nasal Cannula Nasal Cannula Nasal Cannula O2 Flow Rate 2.0 2.0 5.0 2.0 05/13/19 05/13/19 05/13/19 05/13/19 08:00 08:13 08:15 09:15 Pulse 106 Resp 19 19 B/P (MAP) 118/68 Pulse Ox 98 95 O2 Delivery Nasal Cannula Nasal Cannula Nasal Cannula O2 Flow Rate 5.0 5.0 2.0 05/13/19 05/13/19 11:00 14:06 Temp 98.7 98.7 Pulse 98 89 Resp 16 B/P (MAP) 87/66 (73) 99/52 (68) Pulse Ox 95 O2 Delivery Nasal Cannula O2 Flow Rate 2.0 Intake and Output 05/12/19 05/12/19 05/13/19 15:00 23:00 07:00 Intake Total 0 ml Balance 0 ml Nutrition Consultation Dietary Evaluation: Recommendations by RD: Dietary education by RD, Increase Calorie Intake, Protein supplementation Comments: Continue w/regular diet as ordered Continue w/Ensure TID Provided pt w/oncology nutrition hanndouts and handout on ways to increase protein Expected Outcomes/Goals: PO intake to meet >75% est needs - not met, goal ongoing Interpretation of weight loss: >20% in 1 year Malnutrition Findings: Food and Nutrition Intake (Sev: <50% est energy req 5days Weight Status: Obese JEREMY MELO MD May 13, 2019 15:19
--- NOTE | 2019-05-13 15:58 | NUR ---
Discharge Note: JAMAAL GUERRERO [facility] Discharge instructions and discharge home medications reviewed with patient and patient's and a copy given. All questions have been answered and understanding verbalized. The following instructions and handouts were given: Take carvedilol 3.125 mg tab, 1 tab BID (dose decreased per MD order). Use 6L oxygen at rest and on exertion. Follow up with PCP in a week Follow up with Dr. Garcia (appointment sched). Watch out for worsening of symptoms, call MD. Discontinued lines and drains: peripheral IV intact, patient tolerated removal, no complications noted Patient discharged to home with home health on oxygen at 5lpm per nasal cannula via wheelchair accompanied by the patient's at 1510. Addendum: 05/13/19 at 1637 by EDGAR METCALF RN Patient to continue eliquis 5 mg tablet, 2 tablets 2x a day for 1 day. Then 5 mg tablet, 1 tablet 2 x a day for [address] Kee Telephone order at 1615. Patient notified via phone at 1620. Prescription called to [facility] pharmacy at 1635.
[2019-05-15] MEDS ORDERED: APIXABAN 5 MG TABLET. PO SCH ×2 (09:00→21:00)
== END 2019-05-13 15:03 | disposition home health service (06) | DRG 597 ==
LOC: ER 18:53 → 1 WEST ICU 21:27 → 6 SOUTH 05-10 19:45
PROVIDERS: ADMIT Family Medicine; ATTEND Family Medicine
DX: C50.911 Malignant neoplasm of unspecified site of right female breast (principal); E43 Unspecified severe protein-calorie malnutrition; J96.91 Respiratory failure, unspecified with hypoxia; I82.C11 Acute embolism and thrombosis of right internal jugular vein; J91.0 Malignant pleural effusion; C79.51 Secondary malignant neoplasm of bone; C78.7 Secondary malignant neoplasm of liver and intrahepatic bile duct; G43.909 Migraine, unspecified, not intractable, without status migrainosus; E78.5 Hyperlipidemia, unspecified; K21.9 Gastro-esophageal reflux disease without esophagitis; K58.9 Irritable bowel syndrome, unspecified; R29.810 Facial weakness; F17.210 Nicotine dependence, cigarettes, uncomplicated; E87.6 Hypokalemia; D64.9 Anemia, unspecified; H91.91 Unspecified hearing loss, right ear; J44.9 Chronic obstructive pulmonary disease, unspecified; F41.8 Other specified anxiety disorders; G47.30 Sleep apnea, unspecified; I10 Essential (primary) hypertension; I49.9 Cardiac arrhythmia, unspecified; Z68.36 Body mass index [BMI] 36.0-36.9, adult; Z85.41 Personal history of malignant neoplasm of cervix uteri; Z85.3 Personal history of malignant neoplasm of breast; Z90.710 Acquired absence of both cervix and uterus; Z17.1 Estrogen receptor negative status [ER-]; Z79.01 Long term (current) use of anticoagulants; Z90.13 Acquired absence of bilateral breasts and nipples; Z83.3 Family history of diabetes mellitus; Z82.49 Family history of ischemic heart disease and other diseases of the circulatory system; Z92.21 Personal history of antineoplastic chemotherapy; Z80.1 Family history of malignant neoplasm of trachea, bronchus and lung; Z80.8 Family history of malignant neoplasm of other organs or systems
CPT/HCPCS: 36415; 36600; 70450; 70544; 70553; 71045; 71275; 72125; 80048; 80053; 81001; 82553; 82805; 83605; 83690; 83735; 84132; 84145; 84484; 85007; 85025; 85520; 85610; 85730; 93005; 93970; 93971; 94618; 94640; 94760; 96361; 96374; 96375; A9575; J1100; J1644; J2360; J2405; J3010; J3480; J7030; J7613; J7620; J7626; Q0164; Q9967; 97116; 97530; 99291-25; G0378

== ENCOUNTER 2019-05-24 15:23 | Inpatient (IN) | payer BC ==
[~2019-05-24] VITALS: Ht 170.2 cm; Wt 83.1 kg
[~2019-05-24 15:23] MED LIST changes: +CAPE500T PO; +QUET25TA5 PO
[2019-05-24 16:51] LABS: BASO # 0.1 x10^3/uL (0.0-0.2); BASO % 1 % (0-3); EOS # 0.3 x10^3/uL (0.0-0.7); EOS % 5 % (0-3); HEMATOCRIT 27.4 % (36.0-47.0); HEMOGLOBIN 9.4 g/dL (12.0-15.5); LYMPH # 0.8 x10^3/uL (1.0-4.8); LYMPH % 12 % (24-48); MEAN CORPUSCULAR HEMOGLOBIN 31 pg (25-35); MEAN CORPUSCULAR HGB CONC 34 g/dL (31-37); MEAN CORPUSCULAR VOLUME 90 fL (79-100); MONO # 0.3 x10^3/uL (0.0-1.1); MONO % 5 % (0-9); NEUT # 5.2 x10^3/uL (1.8-7.7); NEUT % 78 % (31-73); PLATELET COUNT 177 x10^3/uL (140-400); RED BLOOD COUNT 3.06 x10^6/uL (3.50-5.40); RED CELL DISTRIBUTION WIDTH 18.4 % (11.5-14.5); WHITE BLOOD COUNT 6.7 x10^3/uL (4.0-11.0)
[2019-05-24] MEDS ORDERED: POTASSIUM CHLORIDE 20 MEQ TABLET.ER. PO ONE (17:15)
--- NOTE | 2019-05-24 17:34 | PDOC1 ---
History and Physical Date of Admission Date of Admission DATE: 05/24/19 TIME: 17:33 Identification/Chief Complaint Chief Complaint Hypokalemia Source Source: Patient History of Present Illness History of Present Illness Ms Rausch is a 49-year-old female with past medical history of breast cancer with metastasis to bone and liver, asthma, migraines, smoker presents to the ED today for hypokalemia. Patient states she was informed by her oncologist her potassium was 2.1, labs were drawn this morning. Patient has some dizziness and bilateral hand and foot burning. Potassium 2 here. EKG sinus. She is very weak, unable to nitrating acid mixer ED, call for admission for further treatment. Past Medical History Cardiovascular: HTN, Hyperlipidemia Pulmonary: Asthma, Other CENTRAL NERVOUS SYSTEM: Migraine GI: GERD, Irritable bowel disease Heme/Onc: Cancer Hepatobiliary: No pertinent hx Psych: Anxiety, Depression Musculoskeletal: low back pain, Osteoarthritis, Other Rheumatologic: Other Infectious disease: No pertinent hx Renal/: No pertinent hx Endocrine: No pertinent hx Past Surgical History Past Surgical History: Hysterectomy, Other Family History Family History: Coronary Artery Disease, Diabetes, Heart Disease, Hypertension Social History Smoke: <1 pack per day ALCOHOL: none Drugs: None Current Medications Current Medications Current Medications Potassium Chloride (Klor-Con) 40 meq 1X ONCE PO ; Start 05/24/19 at 17:15; Stop 05/24/19 at 17:16; Status DC Active Scripts Active Seroquel (Quetiapine Fumarate) 25 Mg Tablet 1 Tab PO QHS Reported Xeloda (Capecitabine) 500 Mg Tablet 2,000 Mg PO BIDWMEALS Oxycontin (Oxycodone HCl) 20 Mg Tab.er.12h 20 Mg PO BID Pepcid (Famotidine) 40 Mg Tablet 40 Mg PO HS Compazine (Prochlorperazine Maleate) 10 Mg Tablet 10 Mg PO Q6HRS Topiramate 100 Mg Tablet 2 Tab PO BID Venlafaxine Hcl Er (Venlafaxine Hcl) 225 Mg Tab.er.24 1 Tab PO DAILY Xanax (Alprazolam) 0.5 Mg Tablet 1 Tab PO PRN BID PRN Levocetirizine Dihydrochloride 5 Mg Tablet 5 Mg PO HS Carvedilol (Carvedilol) 6.25 Mg Tablet 6.25 Mg PO BIDWMEALS Oxycodone Hcl Immed.release (Oxycodone Hcl) 10 Mg Tablet 10 Mg PO Q6HRS PRN Relpax (Eletriptan Hbr) 40 Mg Tablet 40 Mg PO PRN PRN Flonase Allergy Relief (Fluticasone Propionate) 9.9 Ml [place].susp 2 Sprays NS DA GABRIELA Duoneb 0.5-3(2.5) Mg/3 Ml (Albuterol/Ipratropium) 3 Ml Ampul.neb 3 Ml NEB QID Proair Hfa Inhaler (Albuterol Sulfate) 8.5 Gm Hfa.aer.ad 1 Puff INH PRN Q6HRS PRN Advair 250-50 Diskus (Fluticasone/Salmeterol) 1 Each Disk.w.dev 1 Inh IH BID Cyclobenzaprine Hcl 10 Mg Tablet 10 Mg PO TID PRN PRN Atorvastatin Calcium 40 Mg Tablet 20 Mg PO HS Singulair Tablet (Montelukast Sodium) 10 Mg Tablet 10 Mg PO HS Allergies Allergies: Coded Allergies: No Known Drug Allergies (Unverified , 09/06/18) ROS General: YES: Fatigue, Malaise; No: Chills, Night Sweats, Appetite, Other PSYCHOLOGICAL ROS: No: Anxiety, Behavioral Disorder, Concentration difficultie, Decreased libido, Depression, Disorientation, Hallucinations, Hostility, Irritablity, Memory difficulties, Mood Swings, Obsessive thoughts, Physical abuse, Sexual abuse, Sleep disturbances, Suicidal ideation, Other Eyes: No Blurry vision, No Decreased vision, No Double vision, No Dry eyes, No Excessive tearing, No Eye Pain, No Itchy Eyes, No Loss of vision, No Photophobia, No Scotomata, No Uses contacts, No Uses glasses, No Other HEENT: YES: Heacaches; No: Visual Changes, Hearing change, Nasal congestion, Nasal discharge, Oral lesions, Sinus pain, Sore Throat, Epistaxis, Sneezing, Snoring, Tinnitus, Vertigo, Vocal changes, Other ALLERGY AND IMMUNOLOGY: No: Hives, Insect Bite Sensitivity, Itchy/Watery Eyes, Nasal Congestion, Post Nasal Drip, Seasonal Allergies, Other Hematological and Lymphatic: YES: Blood Clots; No: Bleeding Problems, Blood Transfusions, Brusing, Night Sweats, Pallor, Swollen Lymph Nodes, Other ENDOCRINE: No: Breast Changes, Galactorrhea, Hair Pattern Changes, Hot Flashes, Malaise/lethargy, Mood Swings, Palpitations, Polydipsia/polyuria, Skin Changes, Temperature Intolerance, Unexpected Weight Changes, Other Breast: No New/Changing Breast Lumps, No Nipple changes, No Nipple discharge, No Other Respiratory: YES: Shortness of breath, SOB with excertion; No: Cough, Hemoptysis, Orthopnea, Pleuritic Pain, Sputum Changes, Stridor, Tachypnea, Wheezing, Other Cardiovascular: No Chest Pain, No Palpitations, No Orthopnea, No Paroxysmal Noc. Dyspnea, No Edema, No Lt Headedness, No Other Gastrointestinal: No Nausea, No Vomiting, No Abdominal Pain, No Diarrhea, No Constipation, No Melena, No Hematochezia, No Other Genitourinary: No Dysuria, No Frequency, No Incontinence, No Hematuria, No Retention, No Discharge, No Urgency, No Pain, No Flank Pain, No Other, No , No , No , No , No , No , No Musculoskeletal: No Gait Disturbance, No Joint Pain, No Joint Stiffness, No Joint Swelling, No Muscle Pain, No Muscular Weakness, No Pain In:, No Swelling In:, No Other Neurological: Yes Numbness/Tingling; No Behavorial Changes, No Bowel/Bladder ControlChng, No Confusion, No Dizziness, No Gait Disturbance, No Headaches, No Impaired Coord/balance, No Memory Loss, No Seizures, No Speech Problems, No Tremors, No Visual Changes, No Weakness, No Other Skin: No Dry Skin, No Eczema, No Hair Changes, No Lumps, No Mole Changes, No Mottling, No Nail Changes, No Pruritus, No Rash, No Skin Lesion Changes, No Other, No Acne Physical Exam General: Alert, Oriented X3, Cooperative, No acute distress HEENT: Atraumatic, PERRLA, EOMI, Mucous membr. moist/pink Lungs: Other (Decreased left sided breath sounds) Heart: S1S2, RRR Abdomen: Normal bowel sounds, Soft, No tenderness, No hepatosplenomegaly, No masses Rectal Exam: not examined Neuro: Normal gait, Normal speech, Strength at 5/5 X4 ext, Normal tone, Cranial nerves 3-12 NL, Reflexes 2+, Other (Peripheral neuropathy) Psych/Mental Status: Mental status NL, Mood NL Vitals Vitals Vital Signs Date Time Temp Pulse Resp B/P (MAP) Pulse Ox O2 Delivery O2 Flow Rate FiO2 05/24/19 16:05 98.7 92 14 140/59 (86) 94 Room Air 2.0 98.7 Labs Labs Laboratory Tests Test 05/24/19 16:35 White Blood Count 6.7 x10^3/uL (4.0-11.0) Red Blood Count 3.06 x10^6/uL (3.50-5.40) Hemoglobin 9.4 g/dL (12.0-15.5) Hematocrit 27.4 % (36.0-47.0) Mean Corpuscular Volume 90 fL (79-100) Mean Corpuscular Hemoglobin 31 pg (25-35) Mean Corpuscular Hemoglobin Concent 34 g/dL (31-37) Red Cell Distribution Width 18.4 % (11.5-14.5) Platelet Count 177 x10^3/uL (140-400) Neutrophils (%) (Auto) 78 % (31-73) Lymphocytes (%) (Auto) 12 % (24-48) Monocytes (%) (Auto) 5 % (0-9) Eosinophils (%) (Auto) 5 % (0-3) Basophils (%) (Auto) 1 % (0-3) Neutrophils # (Auto) 5.2 x10^3/uL (1.8-7.7) Lymphocytes # (Auto) 0.8 x10^3/uL (1.0-4.8) Monocytes # (Auto) 0.3 x10^3/uL (0.0-1.1) Eosinophils # (Auto) 0.3 x10^3/uL (0.0-0.7) Basophils # (Auto) 0.1 x10^3/uL (0.0-0.2) Laboratory Tests Test 05/24/19 16:35 White Blood Count 6.7 x10^3/uL (4.0-11.0) Red Blood Count 3.06 x10^6/uL (3.50-5.40) Hemoglobin 9.4 g/dL (12.0-15.5) Hematocrit 27.4 % (36.0-47.0) Mean Corpuscular Volume 90 fL (79-100) Mean Corpuscular Hemoglobin 31 pg (25-35) Mean Corpuscular Hemoglobin Concent 34 g/dL (31-37) Red Cell Distribution Width 18.4 % (11.5-14.5) Platelet Count 177 x10^3/uL (140-400) Neutrophils (%) (Auto) 78 % (31-73) Lymphocytes (%) (Auto) 12 % (24-48) Monocytes (%) (Auto) 5 % (0-9) Eosinophils (%) (Auto) 5 % (0-3) Basophils (%) (Auto) 1 % (0-3) Neutrophils # (Auto) 5.2 x10^3/uL (1.8-7.7) Lymphocytes # (Auto) 0.8 x10^3/uL (1.0-4.8) Monocytes # (Auto) 0.3 x10^3/uL (0.0-1.1) Eosinophils # (Auto) 0.3 x10^3/uL (0.0-0.7) Basophils # (Auto) 0.1 x10^3/uL (0.0-0.2) VTE Prophylaxis Ordered VTE Prophylaxis Devices: Yes VTE Pharmacological Prophylaxi: Yes Assessment/Plan Assessment/Plan A/P: Hypokalemia - likely from poor PO intake, will give IV and PO, repeat in AM. Check mag level Peripheral neuropathy - possibly xeloda side effect Hyperdense appearance of the right sigmoid sinus, strongly favored to represent dural venous thrombosis - confirmatory MRV given her symptoms. Cont anticoagulation for now. Given interactions with warfarin and xeloda, will opt to continue on eliquis Anemia - Likely related to active cancer, will monitor Acute on chronic Hypoxic respiratory failure - possibly related to pleural effusion. Breath sounds absent on left Hypotension - will monitor Metastatic breast cancer - triple negative, has an overall poor prognosis and has had a bad year, likely her clot is related to active malignancy. Will consult heme/onc for advice on both. Expanded appearance of the right internal jugular vein which could reflect thrombus. Ultrasound confirmed this. Continue anticoagulation Heterogenous sclerotic appearance of the osseous structures. Correlate with cancer history for osseous metastatic disease. Left pleural effusion - this is recurrent, had a thoracentesis previously this month. malignant. Anxiety with depression - will cont meds Asthma - will cont inhalers Smoker - nicotine patch SEVERE PROTEIN CALORIE MALNUTRITION - almost certainly 2/2 active cancer. Nu tritional supplements, dietitician to see Confusion - benzos, topiramate, gabapentin, and opioids can all cause this FEN - General diet PPX - Eliquis FULL CODE Dispo - inpatient for symptomatic hypokalemia DEWAYNE GASPAR MD May 24, 2019 17:34
[2019-05-24 17:53] LABS: ALBUMIN 2.4 g/dL (3.4-5.0); ALBUMIN/GLOBULIN RATIO 0.6 (1.0-1.7); CALCIUM 6.6 mg/dL (8.5-10.1); CREATININE 0.8 mg/dL (0.6-1.0); GFR 76.2; TOTAL BILIRUBIN 0.9 mg/dL (0.2-1.0); TOTAL PROTEIN 6.2 g/dL (6.4-8.2)
[2019-05-24] MEDS ORDERED: ONDANSETRON PF 4 MG/2 ML VIAL. IV PRN (18:15)
[2019-05-24] MEDS ORDERED: ACETAMINOPHEN 325 MG TABLET. PO PRN (18:15)
[2019-05-24] MEDS ORDERED: MORPHINE SULFATE 4 MG/ML VIAL. IV PRN (18:15)
[2019-05-24] MEDS: POTASSIUM CHLORIDE 10MEQ 100 ML IV SCH ×4 (18:46→22:54)
--- NOTE | 2019-05-24 19:20 | PHYS DOC ---
Past Medical History Past Medical History: Asthma, Cancer, COPD, Migraines, Pneumonia, Other Additional Past Medical Histor: CERVICAL/BREAST/BONE CA,IRREGULAR HEARTBEAT Past Surgical History: Hysterectomy, Other Additional Past Surgical Histo: SINUS,CERVICAL CA,THOROCENTISIS Alcohol Use: None Drug Use: None Adult General Chief Complaint Chief Complaint: ABNORMAL LABS HPI HPI Patient is a 49 year old female with history of stage IV breast cancer with metastasis to the bones and liver who presents to the ED today for hypokalemia. Patient states she was informed by her oncologist her potassium was 2.1, labs were drawn this morning. Patient denies any symptoms. Patient reports she is on oral chemotherapy Review of Systems Review of Systems Constitutional: Denies fever or chills [] Eyes: Denies change in visual acuity, redness, or eye pain [] HENT: Denies nasal congestion or sore throat [] Respiratory: Denies cough or shortness of breath [] Cardiovascular: Reports hypokalemia. No additional information not addressed in HPI [] GI: Denies abdominal pain, nausea, vomiting, bloody stools or diarrhea [] : Denies dysuria or hematuria [] Musculoskeletal: Denies back pain or joint pain [] Integument: Denies rash or skin lesions [] Neurologic: Denies headache, focal weakness or sensory changes [] All other systems were reviewed and found to be within normal limits, except as documented in this note. Current Medications Current Medications Current Medications Medications (Trade) Dose Ordered Sig/Farzana Start Time Stop Time Status Last Admin Dose Admin Potassium Chloride (Klor-Con) 40 meq 1X ONCE 05/24/19 17:15 05/24/19 17:16 DC 05/24/19 17:33 40 MEQ Allergies Allergies Allergies Coded Allergies Type Severity Reaction Last Updated Verified No Known Drug Allergies 09/06/18 No Physical Exam Physical Exam Constitutional: Leyla appearing patient. Well developed, well nourished, no acute distress HENT: Normocephalic, atraumatic, bilateral external ears normal, oropharynx moist, nose normal. Thrush noted in the mouth. Eyes: PERRLA, EOMI, conjunctiva normal, no discharge. [] Neck: Normal range of motion, no tenderness, supple, no stridor. [] Cardiovascular:Heart rate regular rhythm, no murmur [] Lungs & Thorax: Bilateral breath sounds clear to auscultation [] Abdomen: Rounded abdomen. Bowel sounds normal, soft, no tenderness, no masses, no pulsatile masses. [] Skin: Warm, dry, no erythema, no rash. [] Back: No tenderness, no CVA tenderness. [] Extremities: No tenderness, no cyanosis, no clubbing, ROM intact, no edema. [] Neurologic: Alert and oriented X 3, normal motor function, normal sensory function, no focal deficits noted. [] Psychologic: Affect normal, judgement normal, mood normal. [] Current Patient Data Vital Signs Vital Signs Date Time Temp Pulse Resp B/P (MAP) Pulse Ox O2 Delivery O2 Flow Rate FiO2 05/24/19 17:25 91 14 103/61 (75) 95 Nasal Cannula 3.0 05/24/19 16:05 98.7 98.7 Lab Values Laboratory Tests Test 05/24/19 16:35 05/24/19 17:25 White Blood Count 6.7 x10^3/uL (4.0-11.0) Red Blood Count 3.06 x10^6/uL (3.50-5.40) L Hemoglobin 9.4 g/dL (12.0-15.5) L Hematocrit 27.4 % (36.0-47.0) L Mean Corpuscular Volume 90 fL (79-100) Mean Corpuscular Hemoglobin 31 pg (25-35) Mean Corpuscular Hemoglobin Concent 34 g/dL (31-37) Red Cell Distribution Width 18.4 % (11.5-14.5) H Platelet Count 177 x10^3/uL (140-400) Neutrophils (%) (Auto) 78 % (31-73) H Lymphocytes (%) (Auto) 12 % (24-48) L Monocytes (%) (Auto) 5 % (0-9) Eosinophils (%) (Auto) 5 % (0-3) H Basophils (%) (Auto) 1 % (0-3) Neutrophils # (Auto) 5.2 x10^3/uL (1.8-7.7) Lymphocytes # (Auto) 0.8 x10^3/uL (1.0-4.8) L Monocytes # (Auto) 0.3 x10^3/uL (0.0-1.1) Eosinophils # (Auto) 0.3 x10^3/uL (0.0-0.7) Basophils # (Auto) 0.1 x10^3/uL (0.0-0.2) Sodium Level 137 mmol/L (136-145) Potassium Level 2.0 mmol/L (3.5-5.1) *L Chloride Level 96 mmol/L (98-107) L Carbon Dioxide Level 33 mmol/L (21-32) H Anion Gap 8 (6-14) Blood Urea Nitrogen 9 mg/dL (7-20) Creatinine 0.8 mg/dL (0.6-1.0) Estimated GFR (Cockcroft-Gault) 76.2 BUN/Creatinine Ratio 11 (6-20) Glucose Level 99 mg/dL (70-99) Calcium Level 6.6 mg/dL (8.5-10.1) L Total Bilirubin 0.9 mg/dL (0.2-1.0) Aspartate Amino Transferase (AST) 36 U/L (15-37) Alanine Aminotransferase (ALT) 30 U/L (14-59) Alkaline Phosphatase 342 U/L (46-116) H Total Protein 6.2 g/dL (6.4-8.2) L Albumin 2.4 g/dL (3.4-5.0) L Albumin/Globulin Ratio 0.6 (1.0-1.7) L Laboratory Tests 05/24/19 16:35 Laboratory Tests 05/24/19 17:25 EKG EKG 1647 interpreted by sinus rhythm HR 90 no STEMI[] Radiology/Procedures Radiology/Procedures [] Course & Med Decision Making Course & Med Decision Making Pertinent Labs and Imaging studies reviewed. (See chart for details) This is a 49-year-old female patient presenting to the ED today from the doctor's office for hypokalemia. Potassium was 2.1 on blood drawn this morning. Potassium in the ED is 2.0. EKG is negative. Patient was given 40 mEq of potassium and started on potassium IV infusion. Spoke with Dr. García was accepted patient for admission, routine consult placed for Dr. aRdha Andres Disclaimer Dmitry Disclaimer This electronic medical record was generated, in whole or in part, using a voice recognition dictation system. Departure Departure Impression: Primary Impression: Hypokalemia Disposition: ADMITTED INPATIENT Condition: STABLE Referrals: EUSEBIO GRULLON (PCP) GABRIELA DE LA CRUZ APRN May 24, 2019 19:20
[2019-05-24 19:50] VITALS: BP 107/66
[2019-05-24] MEDS ORDERED: APIX5TAB PO (20:48)
[2019-05-24] MEDS ORDERED: GABA300C9 PO (20:51)
[2019-05-24] MEDS ORDERED: oxyCODONE IR 5 MG TABLET PO PRN (22:00)
[2019-05-24] MEDS ORDERED: ALPRAZolam 0.5 MG TABLET PO PRN (22:00)
[2019-05-24] MEDS ORDERED: ALBUTEROL SULFATE 2.5 MG/3 ML NEBU. INH PRN (22:00)
[2019-05-24] MEDS ORDERED: CYCLOBENZAPRINE 10 MG TABLET. PO PRN (22:00)
[2019-05-24] MEDS: PROCHLORPERAZINE 5 MG TABLET. PO SCH (22:48)
[2019-05-24] MEDS: QUEtiapine 25 MG TABLET. PO SCH (22:48)
[2019-05-24] MEDS: APIXABAN 5 MG TABLET. PO SCH (22:48)
[2019-05-24] MEDS: MONTELUKAST SODIUM 10 MG TABLET. PO SCH (22:49)
[2019-05-24] MEDS: oxyCODONE ER 10 MG TAB.ER.12H PO SCH (22:50)
[2019-05-24] MEDS: TOPIRAMATE 100 MG TABLET. PO SCH (22:51)
[2019-05-24] MEDS: ATORVASTATIN CALCIUM 40 MG TABLET. PO SCH (22:52)
[2019-05-24 23:55] VITALS: BP 95/53
[2019-05-25] MEDS: GABAPENTIN 300 MG CAPSULE. PO SCH ×4 (00:02→22:49)
[2019-05-25 03:09] VITALS: BP 85/50
[2019-05-25 05:03] LABS: BASO % 1 % (0-3); EOS # 0.3 x10^3/uL (0.0-0.7); EOS % 6 % (0-3); HEMATOCRIT 25.1 % (36.0-47.0); HEMOGLOBIN 8.6 g/dL (12.0-15.5); LYMPH % 17 % (24-48); MEAN CORPUSCULAR HEMOGLOBIN 31 pg (25-35); MEAN CORPUSCULAR HGB CONC 34 g/dL (31-37); MEAN CORPUSCULAR VOLUME 90 fL (79-100); MONO # 0.3 x10^3/uL (0.0-1.1); MONO % 5 % (0-9); NEUT % 72 % (31-73); PLATELET COUNT 148 x10^3/uL (140-400); RED BLOOD COUNT 2.79 x10^6/uL (3.50-5.40); RED CELL DISTRIBUTION WIDTH 18.4 % (11.5-14.5); WHITE BLOOD COUNT 5.5 x10^3/uL (4.0-11.0)
[2019-05-25 05:27] LABS: CALCIUM 6.7 mg/dL (8.5-10.1); CREATININE 0.9 mg/dL (0.6-1.0); GFR 66.5
[2019-05-25 05:32] LABS: POTASSIUM 2.3 mmol/L (3.5-5.1)
[2019-05-25] MEDS: PROCHLORPERAZINE 5 MG TABLET. PO SCH ×3 (06:00→17:07)
--- NOTE | 2019-05-25 06:52 | EKG ---
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
[2019-05-25 07:00] VITALS: BP 105/59
[2019-05-25] MEDS: POTASSIUM CHLORIDE 10MEQ 100 ML IV SCH ×9 (07:00→20:09)
[2019-05-25] MEDS ORDERED: SUMAtriptan SUCCINATE 100 MG TABLET PO PRN (07:30)
[2019-05-25] MEDS: IPRATRPIUM/ALBUTEROL 0.5/2.5MG 3 ML NEBU. NEB SCH ×4 (07:30→21:32)
[2019-05-25] MEDS: BUDESONIDE 0.5 MG/2 ML NEBU. NEB SCH ×2 (07:30→21:32)
[2019-05-25 07:41] LABS: % ATYL 1 % (0-0); % BANDS 8 % (0-9); % EOS 5 % (0-5); % LYMPHS 19 % (24-48); % METAS 1 % (0-0); % MONOS 2 % (0-10); % MYELOS 1 % (0-0); % SEGS 63 % (35-66); ANISOCYTOSIS SLIGHT; PLT ESTIMATE ADEQUATE (ADEQUATE)
[2019-05-25] MEDS ORDERED: CAPECITABINE 2000 MG PO SCH (08:00)
[2019-05-25] MEDS: ALBUTEROL SULFATE 2.5 MG/3 ML NEBU. NEB SCH ×3 (08:00→20:00)
[2019-05-25] MEDS: CARVEDILOL 6.25 MG TABLET. PO SCH ×2 (08:00→17:00)
[2019-05-25] MEDS: FLUTICASONE 50MCG/NASAL SPRAY 16GM BOTTLE. NS SCH (08:49)
[2019-05-25] MEDS: oxyCODONE ER 10 MG TAB.ER.12H PO SCH ×2 (08:50→21:18)
[2019-05-25] MEDS: APIXABAN 5 MG TABLET. PO SCH ×2 (08:50→21:18)
[2019-05-25] MEDS: VENLAFAXINE XR 37.5 MG CAP.ER.24H. PO SCH (08:50)
[2019-05-25] MEDS: TOPIRAMATE 100 MG TABLET. PO SCH ×2 (08:51→21:18)
[2019-05-25] MEDS ORDERED: NON FORMULARY ITEM (Fluticasone/Salmeterol (Advair 250-50 Diskus) 1 INH) IH SCH (09:00)
--- NOTE | 2019-05-25 10:06 | PDOC2 ---
CONSULT Date of Consult Date of Consult DATE: 05/25/19 TIME: 09:57 Reason for consultation: Breast cancer Consult: Hematology oncology, Dr. Paulie Gambino History of present illness: She is a 49-year-old female with breast cancer, metastatic, who is on palliative Xeloda per clinical trial. She was seen in the clinic yesterday with hypotension that did not improve with IV fluids and potassium of 2 and was admitted for further eval. She has hand-foot syndrome, grade 3, worsened due to chemotherapy, acute, improving as Xeloda is off w/ time and w/ creams, she stopped her pills 2 days ago, assoc w/ PN, and is followed by Dr. Garcia. Past medical history: Metastatic breast cancer Cerebral vein thrombosis recently Cardiac disease Asthma History of cervical cancer Migraine Hypertension Peripheral neuropathy Hand-foot syndrome Past surgical history: Breast surgery Sinus surgery Port placement Hysterectomy Allergies: no Known drug allergies Medications: See attached list Social history: , positive tobacco, no alcohol Family history: lung Cancer Review of systems: Weakness, hand-foot syndrome, peripheral neuropathy, fatigue, pain controlled with pain meds, mouth sores, low BP, otherwise rest of 10 point review of systems negative. Physical exam: Vitals reviewed Gen.: middle aged female in no acute distress HEENT: mucous membranes moist, head normocephalic atraumatic Neck: Supple, no lymphadenopathy Lymph nodes: No palpable lymphadenopathy neck or axilla Lungs: Breathing comfortably w/o respiratory distress Abdomen: Soft, nontender, nondistended Extremities: No cyanosis, some mild LE edema Skin: No obvious rashes or skin breakdown Neuro: Alert and oriented 3 Psych: Normal mood and affect Lab reviewed: Hemoglobin 6.7, hemoglobin 9.4, platelets 177 Rads reviewed: Recent MRI 09 May 2019 showed mastoid fluid, nonspecific gliosis, clivus bony metastasis Case discussed with: Pt, her relative, records reviewed in [facility], including labs and radiology, please see note for summary details Assessment and Plan: 49-year-old female with metastatic breast cancer on Xeloda, admitted for hypotension and electrolyte abnormality Hand-foot syndrome: Continue pain meds, she has Aquaphor, can use Vaseline as well for keeping area moist Peripheral neuropathy: gabapentin as needed Recent cerebral vein thrombosis: Fine to continue eliquis Hypotension: Per primary lyte abnormalities: Per primary Metastatic breast cancer: Xeloda is on hold, would dose reduce at a minimum before re-dosing, we'll have to reevaluate goals of care when Dr. Garcia returns, she has a cousin who works in hospice and we would consult her when ready but were not ready at the moment, unfortunately Ms. Snell no longer works here Mouth sores: Valtrex 500 twice a day and triple mix as needed Thank you kindly for this consultation, and please don't hesitate to call with further questions. Past Medical History Cardiovascular: HTN, Hyperlipidemia Pulmonary: Asthma, Other CENTRAL NERVOUS SYSTEM: Migraine GI: GERD, Irritable bowel disease Heme/Onc: Cancer Hepatobiliary: No pertinent hx Psych: Anxiety, Depression Musculoskeletal: low back pain, Osteoarthritis, Other Rheumatologic: Other Infectious disease: No pertinent hx Renal/: No pertinent hx Endocrine: No pertinent hx Past Surgical History Past Surgical History: Hysterectomy, Other Family History Family History: Coronary Artery Disease, Diabetes, Heart Disease, Hypertension Social History <1 pack per day ALCOHOL: none Drugs: None Current Problem List Problem List Problems Medical Problems: (1) Hypokalemia Status: Acute Current Medications Current Medications Current Medications Potassium Chloride (Klor-Con) 40 meq 1X ONCE PO Last administered on 05/24/19at 17:33; Start 05/24/19 at 17:15; Stop 05/24/19 at 17:16; Status DC Ondansetron HCl (Zofran) 4 mg PRN Q8HRS PRN IV NAUSEA/VOMITING; Start 05/24/19 at 18:15; Stop 05/25/19 at 18:14 Morphine Sulfate (Morphine Sulfate) 4 mg PRN Q2HR PRN IV PAIN; Start 05/24/19 at 18:15; Stop 05/25/19 at 18:14 Acetaminophen (Tylenol) 650 mg PRN Q4HRS PRN PO FEVER; Start 05/24/19 at 18:15; Stop 05/25/19 at 18:14 Potassium Chloride/Water 100 ml @ 100 mls/hr Q1H IV Last administered on 05/24/19at 22:54; Start 05/24/19 at 19:00; Stop 05/24/19 at 22:59; Status DC Albuterol Sulfate (Ventolin Neb Soln) 2.5 mg PRN Q6HRS PRN INH SHORTNESS OF BREATH; Start 05/24/19 at 22:00 Alprazolam (Xanax) 0.5 mg PRN BID PRN PO ANXIETY; Start 05/24/19 at 22:00 Apixaban (Eliquis) 5 mg BID PO Last administered on 05/25/19 08:50; Start 05/24/19 at 22:30 Atorvastatin Calcium (Lipitor) 20 mg HS PO Last administered on 05/24/19at 22:52; Start 05/24/19 at 22:30 Carvedilol (Coreg) 6.25 mg BIDWMEALS PO ; Start 05/25/19 at 08:00 Cyclobenzaprine HCl (Flexeril) 10 mg TID PRN PRN PO MUSCLE SPASMS; Start 05/24/19 at 22:00 Gabapentin (Neurontin) 900 mg TID PO Last administered on 05/25/19 08:50; Start 05/24/19 at 22:30 Albuterol/ Ipratropium (Duoneb) 3 ml RTQID NEB Last administered on 05/25/19 07:30; Start 05/25/19 at 08:00 Montelukast Sodium (Singulair) 10 mg HS PO Last administered on 05/24/19 22:49; Start 05/24/19 at 22:30 Quetiapine Fumarate (SEROquel) 25 mg QHS PO Last administered on 05/24/19 22:48; Start 05/24/19 at 22:30 Topiramate (Topamax) 200 mg BID PO Last administered on 05/25/19 08:51; Start 05/24/19 at 22:30 Non-Formulary Medication (Capecitabine (Xeloda)) 2,000 mg BIDWMEALS PO ; Start 05/25/19 at 08:00; Status UNV Sumatriptan Succinate (Imitrex) 100 mg PRN Q2HR PRN PO MIGRAINE HEADACHE; Start 05/25/19 at 07:30 Fluticasone Propionate (Flonase) 2 spray DAILY NS Last administered on 05/25/19 08:49; Start 05/25/19 at 09:00 Non-Formulary Medication (Fluticasone/ Salmeterol (Advair 250-50 Diskus)) 1 inh BID IH ; Start 05/25/19 at 09:00; Status UNV Cetirizine HCl (ZyrTEC) 10 mg HS PO ; Start 05/25/19 at 21:00 Oxycodone HCl (Roxicodone) 10 mg PRN Q6HRS PRN PO PAIN; Start 05/24/19 at 22:00 Oxycodone HCl (OxyCONTIN) 20 mg BID PO Last administered on 05/25/19at 08:50; Start 05/24/19 at 22:30 Prochlorperazine Maleate (Compazine) 10 mg Q6HRS PO Last administered on 05/24/19at 22:48; Start 05/25/19 at 00:00 Venlafaxine HCl (Effexor Xr) 225 mg DAILY PO Last administered on 05/25/19at 08:50; Start 05/25/19 at 09:00 Budesonide (Pulmicort) 0.5 mg RTBID NEB Last administered on 05/25/19at 07:30; Start 05/25/19 at 08:00 Albuterol Sulfate (Ventolin Neb Soln) 2.5 mg RTQID NEB ; Start 05/25/19 at 08:00 Potassium Chloride/Water 100 ml @ 100 mls/hr Q1H IV Last administered on 05/25/19at 08:49; Start 05/25/19 at 07:00; Stop 05/25/19 at 10:59 Potassium Chloride/Water 100 ml @ 100 mls/hr Q1H IV ; Start 05/25/19 at 13:00; Stop 05/25/19 at 16:59 Info (Anti-Coagulation Monitoring By Pharmacy) 1 each PRN DAILY PRN MC SEE COMMENTS; Start 05/25/19 at 09:00 Active Scripts Active Seroquel (Quetiapine Fumarate) 25 Mg Tablet 1 Tab PO QHS Reported Gabapentin 300 Mg Capsule 900 Mg PO TID Eliquis (Apixaban) 5 Mg Tablet 5 Mg PO BID Xeloda (Capecitabine) 500 Mg Tablet 2,000 Mg PO BIDWMEALS Oxycontin (Oxycodone HCl) 20 Mg Tab.er.12h 20 Mg PO BID Compazine (Prochlorperazine Maleate) 10 Mg Tablet 10 Mg PO Q6HRS Topiramate 100 Mg Tablet 2 Tab PO BID Venlafaxine Hcl Er (Venlafaxine Hcl) 225 Mg Tab.er.24 1 Tab PO DAILY Xanax (Alprazolam) 0.5 Mg Tablet 1 Tab PO PRN BID PRN Levocetirizine Dihydrochloride 5 Mg Tablet 5 Mg PO HS Carvedilol (Carvedilol) 6.25 Mg Tablet 6.25 Mg PO BIDWMEALS Oxycodone Hcl Immed.release (Oxycodone Hcl) 10 Mg Tablet 10 Mg PO Q6HRS PRN Relpax (Eletriptan Hbr) 40 Mg Tablet 40 Mg PO PRN PRN Flonase Allergy Relief (Fluticasone Propionate) 9.9 Ml [place].susp 2 Sprays NS DAILY Duoneb 0.5-3(2.5) Mg/3 Ml (Albuterol/Ipratropium) 3 Ml Ampul.neb 3 Ml NEB QID Proair Hfa Inhaler (Albuterol Sulfate) 8.5 Gm Hfa.aer.ad 1 Puff INH PRN Q6HRS PRN Advair 250-50 Diskus (Fluticasone/Salmeterol) 1 Each Disk.w.dev 1 Inh IH BID Cyclobenzaprine Hcl 10 Mg Tablet 10 Mg PO TID PRN PRN Atorvastatin Calcium 40 Mg Tablet 20 Mg PO HS Singulair Tablet (Montelukast Sodium) 10 Mg Tablet 10 Mg PO HS Allergies Allergies: Coded Allergies: No Known Drug Allergies (Unverified , 09/06/18) Vitals VITALS Vital Signs Date Time Temp Pulse Resp B/P (MAP) Pulse Ox O2 Delivery O2 Flow Rate FiO2 05/25/19 08:00 94 105/59 05/25/19 07:30 100 Nasal Cannula 5.0 05/25/19 07:00 97.4 20 97.4 Labs Labs Laboratory Tests Test 05/24/19 16:35 05/24/19 17:25 05/25/19 04:45 White Blood Count 6.7 x10^3/uL (4.0-11.0) 5.5 x10^3/uL (4.0-11.0) Red Blood Count 3.06 x10^6/uL (3.50-5.40) 2.79 x10^6/uL (3.50-5.40) Hemoglobin 9.4 g/dL (12.0-15.5) 8.6 g/dL (12.0-15.5) Hematocrit 27.4 % (36.0-47.0) 25.1 % (36.0-47.0) Mean Corpuscular Volume 90 fL (79-100) 90 fL (79-100) Mean Corpuscular Hemoglobin 31 pg (25-35) 31 pg (25-35) Mean Corpuscular Hemoglobin Concent 34 g/dL (31-37) 34 g/dL (31-37) Red Cell Distribution Width 18.4 % (11.5-14.5) 18.4 % (11.5-14.5) Platelet Count 177 x10^3/uL (140-400) 148 x10^3/uL (140-400) Neutrophils (%) (Auto) 78 % (31-73) 72 % (31-73) Lymphocytes (%) (Auto) 12 % (24-48) 17 % (24-48) Monocytes (%) (Auto) 5 % (0-9) 5 % (0-9) Eosinophils (%) (Auto) 5 % (0-3) 6 % (0-3) Basophils (%) (Auto) 1 % (0-3) 1 % (0-3) Neutrophils # (Auto) 5.2 x10^3/uL (1.8-7.7) 4.0 x10^3/uL (1.8-7.7) Lymphocytes # (Auto) 0.8 x10^3/uL (1.0-4.8) 1.0 x10^3/uL (1.0-4.8) Monocytes # (Auto) 0.3 x10^3/uL (0.0-1.1) 0.3 x10^3/uL (0.0-1.1) Eosinophils # (Auto) 0.3 x10^3/uL (0.0-0.7) 0.3 x10^3/uL (0.0-0.7) Basophils # (Auto) 0.1 x10^3/uL (0.0-0.2) 0.0 x10^3/uL (0.0-0.2) Sodium Level 137 mmol/L (136-145) 139 mmol/L (136-145) Potassium Level 2.0 mmol/L (3.5-5.1) 2.3 mmol/L (3.5-5.1) Chloride Level 96 mmol/L (98-107) 99 mmol/L (98-107) Carbon Dioxide Level 33 mmol/L (21-32) 33 mmol/L (21-32) Anion Gap 8 (6-14) 7 (6-14) Blood Urea Nitrogen 9 mg/dL (7-20) 8 mg/dL (7-20) Creatinine 0.8 mg/dL (0.6-1.0) 0.9 mg/dL (0.6-1.0) Estimated GFR (Cockcroft-Gault) 76.2 66.5 BUN/Creatinine Ratio 11 (6-20) Glucose Level 99 mg/dL (70-99) 134 mg/dL (70-99) Calcium Level 6.6 mg/dL (8.5-10.1) 6.7 mg/dL (8.5-10.1) Magnesium Level 2.4 mg/dL (1.8-2.4) Total Bilirubin 0.9 mg/dL (0.2-1.0) Aspartate Amino Transf (AST/SGOT) 36 U/L (15-37) Alanine Aminotransferase (ALT/SGPT) 30 U/L (14-59) Alkaline Phosphatase 342 U/L (46-116) Total Protein 6.2 g/dL (6.4-8.2) Albumin 2.4 g/dL (3.4-5.0) Albumin/Globulin Ratio 0.6 (1.0-1.7) Segmented Neutrophils % 63 % (35-66) Band Neutrophils % 8 % (0-9) Lymphocytes % 19 % (24-48) Atypical Lymphocytes % (Manual) 1 % (0-0) Monocytes % 2 % (0-10) Eosinophils % 5 % (0-5) Metamyelocytes % 1 % (0-0) Myelocytes % 1 % (0-0) Platelet Estimate Adequate (ADEQUATE) Large Platelets Few Basophilic Stippling Present Anisocytosis Slight Macrocytosis Present Laboratory Tests Test 05/24/19 16:35 05/24/19 17:25 05/25/19 04:45 White Blood Count 6.7 x10^3/uL (4.0-11.0) 5.5 x10^3/uL (4.0-11.0) Red Blood Count 3.06 x10^6/uL (3.50-5.40) 2.79 x10^6/uL (3.50-5.40) Hemoglobin 9.4 g/dL (12.0-15.5) 8.6 g/dL (12.0-15.5) Hematocrit 27.4 % (36.0-47.0) 25.1 % (36.0-47.0) Mean Corpuscular Volume 90 fL (79-100) 90 fL (79-100) Mean Corpuscular Hemoglobin 31 pg (25-35) 31 pg (25-35) Mean Corpuscular Hemoglobin Concent 34 g/dL (31-37) 34 g/dL (31-37) Red Cell Distribution Width 18.4 % (11.5-14.5) 18.4 % (11.5-14.5) Platelet Count 177 x10^3/uL (140-400) 148 x10^3/uL (140-400) Neutrophils (%) (Auto) 78 % (31-73) 72 % (31-73) Lymphocytes (%) (Auto) 12 % (24-48) 17 % (24-48) Monocytes (%) (Auto) 5 % (0-9) 5 % (0-9) Eosinophils (%) (Auto) 5 % (0-3) 6 % (0-3) Basophils (%) (Auto) 1 % (0-3) 1 % (0-3) Neutrophils # (Auto) 5.2 x10^3/uL (1.8-7.7) 4.0 x10^3/uL (1.8-7.7) Lymphocytes # (Auto) 0.8 x10^3/uL (1.0-4.8) 1.0 x10^3/uL (1.0-4.8) Monocytes # (Auto) 0.3 x10^3/uL (0.0-1.1) 0.3 x10^3/uL (0.0-1.1) Eosinophils # (Auto) 0.3 x10^3/uL (0.0-0.7) 0.3 x10^3/uL (0.0-0.7) Basophils # (Auto) 0.1 x10^3/uL (0.0-0.2) 0.0 x10^3/uL (0.0-0.2) Sodium Level 137 mmol/L (136-145) 139 mmol/L (136-145) Potassium Level 2.0 mmol/L (3.5-5.1) 2.3 mmol/L (3.5-5.1) Chloride Level 96 mmol/L (98-107) 99 mmol/L (98-107) Carbon Dioxide Level 33 mmol/L (21-32) 33 mmol/L (21-32) Anion Gap 8 (6-14) 7 (6-14) Blood Urea Nitrogen 9 mg/dL (7-20) 8 mg/dL (7-20) Creatinine 0.8 mg/dL (0.6-1.0) 0.9 mg/dL (0.6-1.0) Estimated GFR (Cockcroft-Gault) 76.2 66.5 BUN/Creatinine Ratio 11 (6-20) Glucose Level 99 mg/dL (70-99) 134 mg/dL (70-99) Calcium Level 6.6 mg/dL (8.5-10.1) 6.7 mg/dL (8.5-10.1) Magnesium Level 2.4 mg/dL (1.8-2.4) Total Bilirubin 0.9 mg/dL (0.2-1.0) Aspartate Amino Transf (AST/SGOT) 36 U/L (15-37) Alanine Aminotransferase (ALT/SGPT) 30 U/L (14-59) Alkaline Phosphatase 342 U/L (46-116) Total Protein 6.2 g/dL (6.4-8.2) Albumin 2.4 g/dL (3.4-5.0) Albumin/Globulin Ratio 0.6 (1.0-1.7) Segmented Neutrophils % 63 % (35-66) Band Neutrophils % 8 % (0-9) Lymphocytes % 19 % (24-48) Atypical Lymphocytes % (Manual) 1 % (0-0) Monocytes % 2 % (0-10) Eosinophils % 5 % (0-5) Metamyelocytes % 1 % (0-0) Myelocytes % 1 % (0-0) Platelet Estimate Adequate (ADEQUATE) Large Platelets Few Basophilic Stippling Present Anisocytosis Slight Macrocytosis Present PAULIE GAMBINO MD May 25, 2019 10:06
[2019-05-25 11:00] VITALS: BP 101/60
--- NOTE | 2019-05-25 11:29 | NUR ---
SS following for discharge planning. SS reviewed pt chart. Pt is from home with spouse and is currently requiring oxygen. Pt has home oxygen with [facility], ; fax [phone], and has had previous services in the past with [facility], ; fax [phone]. SS will continue to follow for discharge planning.
[2019-05-25] MEDS: LIDO:MAALOX:BENADRYL 1:1:1 180 ML BOTTLE. PO PRN ×2 (11:57→19:40)
[2019-05-25] MEDS: valACYclovir 500 MG TABLET. PO SCH ×2 (11:57→21:19)
--- NOTE | 2019-05-25 12:27 | PDOC ---
[employer] PROGRESS NOTE Chief Complaint Chief Complaint Hypokalemia Peripheral neuropathy Hyperdense appearance of the right sigmoid sinus, strongly favored to represent dural venous thrombosis Anemia Acute on chronic Hypoxic respiratory failure Hypotension Metastatic breast cancer - triple negative Expanded appearance of the right internal jugular vein which could reflect thrombus. Heterogenous sclerotic appearance of the osseous structures Left pleural effusion Anxiety with depression Asthma Smoker SEVERE PROTEIN CALORIE MALNUTRITION Confusion History of Present Illness History of Present Illness 05/25/19 Pt seen and examined DW RN Chart reviewed Vitals/I&O Vitals/I&O: Vital Signs Date Time Temp Pulse Resp B/P (MAP) Pulse Ox O2 Delivery O2 Flow Rate FiO2 05/25/19 08:00 Nasal Cannula 5.0 05/25/19 08:00 94 105/59 05/25/19 07:30 100 05/25/19 07:00 97.4 20 97.4 I & O 05/24/19 05/24/19 05/25/19 15:00 23:00 07:00 Intake Total 1500 ml Balance 1500 ml Physical Exam General: Alert, Oriented X3, Cooperative, No acute distress Heart: Regular rate Lungs: Crackles, Other Abdomen: Normal bowel sounds, Soft, No tenderness, No hepatosplenomegaly, No masses Extremities: No clubbing, No cyanosis Skin: No rashes Labs Labs: Laboratory Tests Test 05/24/19 16:35 05/24/19 17:25 05/25/19 04:45 White Blood Count 6.7 x10^3/uL (4.0-11.0) 5.5 x10^3/uL (4.0-11.0) Red Blood Count 3.06 x10^6/uL (3.50-5.40) 2.79 x10^6/uL (3.50-5.40) Hemoglobin 9.4 g/dL (12.0-15.5) 8.6 g/dL (12.0-15.5) Hematocrit 27.4 % (36.0-47.0) 25.1 % (36.0-47.0) Mean Corpuscular Volume 90 fL (79-100) 90 fL (79-100) Mean Corpuscular Hemoglobin 31 pg (25-35) 31 pg (25-35) Mean Corpuscular Hemoglobin Concent 34 g/dL (31-37) 34 g/dL (31-37) Red Cell Distribution Width 18.4 % (11.5-14.5) 18.4 % (11.5-14.5) Platelet Count 177 x10^3/uL (140-400) 148 x10^3/uL (140-400) Neutrophils (%) (Auto) 78 % (31-73) 72 % (31-73) Lymphocytes (%) (Auto) 12 % (24-48) 17 % (24-48) Monocytes (%) (Auto) 5 % (0-9) 5 % (0-9) Eosinophils (%) (Auto) 5 % (0-3) 6 % (0-3) Basophils (%) (Auto) 1 % (0-3) 1 % (0-3) Neutrophils # (Auto) 5.2 x10^3/uL (1.8-7.7) 4.0 x10^3/uL (1.8-7.7) Lymphocytes # (Auto) 0.8 x10^3/uL (1.0-4.8) 1.0 x10^3/uL (1.0-4.8) Monocytes # (Auto) 0.3 x10^3/uL (0.0-1.1) 0.3 x10^3/uL (0.0-1.1) Eosinophils # (Auto) 0.3 x10^3/uL (0.0-0.7) 0.3 x10^3/uL (0.0-0.7) Basophils # (Auto) 0.1 x10^3/uL (0.0-0.2) 0.0 x10^3/uL (0.0-0.2) Sodium Level 137 mmol/L (136-145) 139 mmol/L (136-145) Potassium Level 2.0 mmol/L (3.5-5.1) 2.3 mmol/L (3.5-5.1) Chloride Level 96 mmol/L (98-107) 99 mmol/L (98-107) Carbon Dioxide Level 33 mmol/L (21-32) 33 mmol/L (21-32) Anion Gap 8 (6-14) 7 (6-14) Blood Urea Nitrogen 9 mg/dL (7-20) 8 mg/dL (7-20) Creatinine 0.8 mg/dL (0.6-1.0) 0.9 mg/dL (0.6-1.0) Estimated GFR (Cockcroft-Gault) 76.2 66.5 BUN/Creatinine Ratio 11 (6-20) Glucose Level 99 mg/dL (70-99) 134 mg/dL (70-99) Calcium Level 6.6 mg/dL (8.5-10.1) 6.7 mg/dL (8.5-10.1) Magnesium Level 2.4 mg/dL (1.8-2.4) Total Bilirubin 0.9 mg/dL (0.2-1.0) Aspartate Amino Transf (AST/SGOT) 36 U/L (15-37) Alanine Aminotransferase (ALT/SGPT) 30 U/L (14-59) Alkaline Phosphatase 342 U/L (46-116) Total Protein 6.2 g/dL (6.4-8.2) Albumin 2.4 g/dL (3.4-5.0) Albumin/Globulin Ratio 0.6 (1.0-1.7) Segmented Neutrophils % 63 % (35-66) Band Neutrophils % 8 % (0-9) Lymphocytes % 19 % (24-48) Atypical Lymphocytes % (Manual) 1 % (0-0) Monocytes % 2 % (0-10) Eosinophils % 5 % (0-5) Metamyelocytes % 1 % (0-0) Myelocytes % 1 % (0-0) Platelet Estimate Adequate (ADEQUATE) Large Platelets Few Basophilic Stippling Present Anisocytosis Slight Macrocytosis Present Review of Systems Review of Systems: CV: (-) CP Lungs: (-) SOB Assessment and Plan Assessmemt and Plan Problems Medical Problems: (1) Hypokalemia Status: Acute Peripheral neuropathy Hyperdense appearance of the right sigmoid sinus, strongly favored to represent dural venous thrombosis Anemia Acute on chronic Hypoxic respiratory failure Hypotension Metastatic breast cancer - triple negative Expanded appearance of the right internal jugular vein which could reflect thrombus. Heterogenous sclerotic appearance of the osseous structures Left pleural effusion Anxiety with depression Asthma Smoker SEVERE PROTEIN CALORIE MALNUTRITION Confusion Plan: Cardiac monitoring replace K IVF Heme/onc following Trend labs DVT ppx Continue home meds Full code Comment Review of Relevant I have reviewed the following items danya (where applicable) has been applied. Medications: Current Medications Medications (Trade) Dose Ordered Sig/Farzana Route PRN Reason Start Time Stop Time Status Last Admin Dose Admin Potassium Chloride (Klor-Con) 40 meq 1X ONCE PO 05/24/19 17:15 05/24/19 17:16 DC 05/24/19 17:33 Potassium Chloride/Water 100 ml @ 100 mls/hr Q1H IV 05/24/19 19:00 05/24/19 22:59 DC 05/24/19 22:54 Apixaban (Eliquis) 5 mg BID PO 05/24/19 22:30 05/25/19 08:50 Atorvastatin Calcium (Lipitor) 20 mg HS PO 05/24/19 22:30 05/24/19 22:52 Gabapentin (Neurontin) 900 mg TID PO 05/24/19 22:30 05/25/19 08:50 Albuterol/ Ipratropium (Duoneb) 3 ml RTQID NEB 05/25/19 08:00 05/25/19 07:30 Montelukast Sodium (Singulair) 10 mg HS PO 05/24/19 22:30 05/24/19 22:49 Quetiapine Fumarate (SEROquel) 25 mg QHS PO 05/24/19 22:30 05/24/19 22:48 Topiramate (Topamax) 200 mg BID PO 05/24/19 22:30 05/25/19 08:51 Fluticasone Propionate (Flonase) 2 spray DAILY NS 05/25/19 09:00 05/25/19 08:49 Oxycodone HCl (OxyCONTIN) 20 mg BID PO 05/24/19 22:30 05/25/19 08:50 Prochlorperazine Maleate (Compazine) 10 mg Q6HRS PO 05/25/19 00:00 05/24/19 22:48 Venlafaxine HCl (Effexor Xr) 225 mg DAILY PO 05/25/19 09:00 05/25/19 08:50 Budesonide (Pulmicort) 0.5 mg RTBID NEB 05/25/19 08:00 05/25/19 07:30 Potassium Chloride/Water 100 ml @ 100 mls/hr Q1H IV 05/25/19 07:00 05/25/19 10:59 DC 05/25/19 10:00 Multi-Ingredient Mouthwash/Gargle (Magic Mouthwash) 10 ml PRN QID PRN PO MOUTH PAIN 05/25/19 10:15 05/25/19 11:57 Valacyclovir HCl (Valtrex) 500 mg BID PO 05/25/19 11:00 05/25/19 11:57 MARY POOL III DO May 25, 2019 12:27
[2019-05-25] MEDS: ANTI-COAG MONITOR BY PHARMACY. MC PRN (13:13)
[2019-05-25 15:00] VITALS: BP 87/51
[2019-05-25 19:50] VITALS: BP 138/57
[2019-05-25] MEDS: CETIRIZINE HCL 10 MG TABLET. PO SCH (21:18)
[2019-05-25] MEDS: MONTELUKAST SODIUM 10 MG TABLET. PO SCH (21:18)
[2019-05-25] MEDS: QUEtiapine 25 MG TABLET. PO SCH (21:18)
[2019-05-25] MEDS: ATORVASTATIN CALCIUM 40 MG TABLET. PO SCH (21:18)
--- NOTE | 2019-05-25 21:34 | NUR ---
VENTOLIN NOT ADMINISTERED BECAUSE IT IS A DUPLICATE MED. DUONEB ALREADY GIVEN
[2019-05-25 23:30] VITALS: BP 133/56
[2019-05-26] MEDS: POTASSIUM CHLORIDE 10MEQ 100 ML IV SCH ×10 (00:06→23:41)
[2019-05-26] MEDS: PROCHLORPERAZINE 5 MG TABLET. PO SCH ×5 (00:31→23:41)
[2019-05-26] MEDS: LIDO:MAALOX:BENADRYL 1:1:1 180 ML BOTTLE. PO PRN ×4 (03:05→19:22)
[2019-05-26 03:30] VITALS: BP 116/55
[2019-05-26 07:00] VITALS: BP 104/54
[2019-05-26] MEDS: IPRATRPIUM/ALBUTEROL 0.5/2.5MG 3 ML NEBU. NEB SCH ×4 (07:31→20:15)
[2019-05-26] MEDS: BUDESONIDE 0.5 MG/2 ML NEBU. NEB SCH ×2 (07:32→20:15)
[2019-05-26] MEDS: ALBUTEROL SULFATE 2.5 MG/3 ML NEBU. NEB SCH ×4 (08:00→20:00)
--- NOTE | 2019-05-26 08:09 | PDOC ---
PROGRESS NOTES Chief Complaint Chief Complaint Hypokalemia Peripheral neuropathy Hyperdense appearance of the right sigmoid sinus, strongly favored to represent dural venous thrombosis Anemia Acute on chronic Hypoxic respiratory failure Hypotension Metastatic breast cancer - triple negative Expanded appearance of the right internal jugular vein which could reflect thrombus. Heterogenous sclerotic appearance of the osseous structures Left pleural effusion Anxiety with depression Asthma Smoker SEVERE PROTEIN CALORIE MALNUTRITION Confusion History of Present Illness History of Present Illness Ms Rausch is a 49-year-old female with past medical history of breast cancer with metastasis to bone and liver, asthma, migraines, smoker presents to the ED today for hypokalemia. Patient states she was informed by her oncologist her potassium was 2.1, labs were drawn this morning. Patient has some dizziness and bilateral hand and foot burning. Potassium 2 here. EKG sinus. She is very weak, unable to stand. Improved to 2.3 after 80meq potassium on 05/25/19. Tells me after xeloda she always gets low K. Awaiting next draw currently. Vitals Vitals Vital Signs Date Time Temp Pulse Resp B/P (MAP) Pulse Ox O2 Delivery O2 Flow Rate FiO2 05/26/19 07:32 98 Nasal Cannula 5.0 05/26/19 03:30 97.8 102 20 116/55 (75) 97.8 Physical Exam General: Alert, Oriented X3, Cooperative, No acute distress Heart: Regular rate Lungs: Crackles, Other Abdomen: Normal bowel sounds, Soft, No tenderness, No hepatosplenomegaly, No masses Extremities: No clubbing, No cyanosis Skin: No rashes Labs LABS Laboratory Tests Test 05/25/19 21:15 Potassium Level 2.2 mmol/L (3.5-5.1) Assessment and Plan Assessmemt and Plan Problems Medical Problems: (1) Hypokalemia Status: Acute Comment Review of Relevant I have reviewed the following items danya (where applicable) has been applied. Labs Laboratory Tests Test 05/24/19 16:35 05/24/19 17:25 05/25/19 04:45 05/25/19 21:15 White Blood Count 6.7 x10^3/uL (4.0-11.0) 5.5 x10^3/uL (4.0-11.0) Red Blood Count 3.06 x10^6/uL (3.50-5.40) 2.79 x10^6/uL (3.50-5.40) Hemoglobin 9.4 g/dL (12.0-15.5) 8.6 g/dL (12.0-15.5) Hematocrit 27.4 % (36.0-47.0) 25.1 % (36.0-47.0) Mean Corpuscular Volume 90 fL (79-100) 90 fL (79-100) Mean Corpuscular Hemoglobin 31 pg (25-35) 31 pg (25-35) Mean Corpuscular Hemoglobin Concent 34 g/dL (31-37) 34 g/dL (31-37) Red Cell Distribution Width 18.4 % (11.5-14.5) 18.4 % (11.5-14.5) Platelet Count 177 x10^3/uL (140-400) 148 x10^3/uL (140-400) Neutrophils (%) (Auto) 78 % (31-73) 72 % (31-73) Lymphocytes (%) (Auto) 12 % (24-48) 17 % (24-48) Monocytes (%) (Auto) 5 % (0-9) 5 % (0-9) Eosinophils (%) (Auto) 5 % (0-3) 6 % (0-3) Basophils (%) (Auto) 1 % (0-3) 1 % (0-3) Neutrophils # (Auto) 5.2 x10^3/uL (1.8-7.7) 4.0 x10^3/uL (1.8-7.7) Lymphocytes # (Auto) 0.8 x10^3/uL (1.0-4.8) 1.0 x10^3/uL (1.0-4.8) Monocytes # (Auto) 0.3 x10^3/uL (0.0-1.1) 0.3 x10^3/uL (0.0-1.1) Eosinophils # (Auto) 0.3 x10^3/uL (0.0-0.7) 0.3 x10^3/uL (0.0-0.7) Basophils # (Auto) 0.1 x10^3/uL (0.0-0.2) 0.0 x10^3/uL (0.0-0.2) Sodium Level 137 mmol/L (136-145) 139 mmol/L (136-145) Potassium Level 2.0 mmol/L (3.5-5.1) 2.3 mmol/L (3.5-5.1) 2.2 mmol/L (3.5-5.1) Chloride Level 96 mmol/L (98-107) 99 mmol/L (98-107) Carbon Dioxide Level 33 mmol/L (21-32) 33 mmol/L (21-32) Anion Gap 8 (6-14) 7 (6-14) Blood Urea Nitrogen 9 mg/dL (7-20) 8 mg/dL (7-20) Creatinine 0.8 mg/dL (0.6-1.0) 0.9 mg/dL (0.6-1.0) Estimated GFR (Cockcroft-Gault) 76.2 66.5 BUN/Creatinine Ratio 11 (6-20) Glucose Level 99 mg/dL (70-99) 134 mg/dL (70-99) Calcium Level 6.6 mg/dL (8.5-10.1) 6.7 mg/dL (8.5-10.1) Magnesium Level 2.4 mg/dL (1.8-2.4) Total Bilirubin 0.9 mg/dL (0.2-1.0) Aspartate Amino Transf (AST/SGOT) 36 U/L (15-37) Alanine Aminotransferase (ALT/SGPT) 30 U/L (14-59) Alkaline Phosphatase 342 U/L (46-116) Total Protein 6.2 g/dL (6.4-8.2) Albumin 2.4 g/dL (3.4-5.0) Albumin/Globulin Ratio 0.6 (1.0-1.7) Segmented Neutrophils % 63 % (35-66) Band Neutrophils % 8 % (0-9) Lymphocytes % 19 % (24-48) Atypical Lymphocytes % (Manual) 1 % (0-0) Monocytes % 2 % (0-10) Eosinophils % 5 % (0-5) Metamyelocytes % 1 % (0-0) Myelocytes % 1 % (0-0) Platelet Estimate Adequate (ADEQUATE) Large Platelets Few Basophilic Stippling Present Anisocytosis Slight Macrocytosis Present Laboratory Tests Test 05/25/19 21:15 Potassium Level 2.2 mmol/L (3.5-5.1) Medications Current Medications Potassium Chloride (Klor-Con) 40 meq 1X ONCE PO Last administered on 05/24/19at 17:33; Start 05/24/19 at 17:15; Stop 05/24/19 at 17:16; Status DC Ondansetron HCl (Zofran) 4 mg PRN Q8HRS PRN IV NAUSEA/VOMITING; Start 05/24/19 at 18:15; Stop 05/25/19 at 18:14; Status DC Morphine Sulfate (Morphine Sulfate) 4 mg PRN Q2HR PRN IV PAIN; Start 05/24/19 at 18:15; Stop 05/25/19 at 18:14; Status DC Acetaminophen (Tylenol) 650 mg PRN Q4HRS PRN PO FEVER; Start 05/24/19 at 18:15; Stop 05/25/19 at 18:14; Status DC Potassium Chloride/Water 100 ml @ 100 mls/hr Q1H IV Last administered on 05/24/19at 22:54; Start 05/24/19 at 19:00; Stop 05/24/19 at 22:59; Status DC Albuterol Sulfate (Ventolin Neb Soln) 2.5 mg PRN Q6HRS PRN INH SHORTNESS OF BREATH; Start 05/24/19 at 22:00 Alprazolam (Xanax) 0.5 mg PRN BID PRN PO ANXIETY; Start 05/24/19 at 22:00 Apixaban (Eliquis) 5 mg BID PO Last administered on 05/25/19at 21:18; Start 05/24/19 at 22:30 Atorvastatin Calcium (Lipitor) 20 mg HS PO Last administered on 05/25/19at 21:18; Start 05/24/19 at 22:30 Carvedilol (Coreg) 6.25 mg BIDWMEALS PO ; Start 05/25/19 at 08:00 Cyclobenzaprine HCl (Flexeril) 10 mg TID PRN PRN PO MUSCLE SPASMS; Start 05/24/19 at 22:00 Gabapentin (Neurontin) 900 mg TID PO Last administered on 05/25/19at 22:49; Start 05/24/19 at 22:30 Albuterol/ Ipratropium (Duoneb) 3 ml RTQID NEB Last administered on 05/26/19 07:31; Start 05/25/19 at 08:00 Montelukast Sodium (Singulair) 10 mg HS PO Last administered on 05/25/19 21:18; Start 05/24/19 at 22:30 Quetiapine Fumarate (SEROquel) 25 mg QHS PO Last administered on 05/25/19 21:18; Start 05/24/19 at 22:30 Topiramate (Topamax) 200 mg BID PO Last administered on 05/25/19 21:18; Start 05/24/19 at 22:30 Non-Formulary Medication (Capecitabine (Xeloda)) 2,000 mg BIDWMEALS PO ; Start 05/25/19 at 08:00; Stop 05/25/19 at 13:23; Status DC Sumatriptan Succinate (Imitrex) 100 mg PRN Q2HR PRN PO MIGRAINE HEADACHE; Start 05/25/19 at 07:30 Fluticasone Propionate (Flonase) 2 spray DAILY NS Last administered on 05/25/19at 08:49; Start 05/25/19 at 09:00 Non-Formulary Medication (Fluticasone/ Salmeterol (Advair 250-50 Diskus)) 1 inh BID IH ; Start 05/25/19 at 09:00; Status UNV Cetirizine HCl (ZyrTEC) 10 mg HS PO Last administered on 05/25/19at 21:18; Start 05/25/19 at 21:00 Oxycodone HCl (Roxicodone) 10 mg PRN Q6HRS PRN PO PAIN; Start 05/24/19 at 22:00 Oxycodone HCl (OxyCONTIN) 20 mg BID PO Last administered on 05/25/19 21:18; Start 05/24/19 at 22:30 Prochlorperazine Maleate (Compazine) 10 mg Q6HRS PO Last administered on 05/26/19 06:30; Start 05/25/19 at 00:00 Venlafaxine HCl (Effexor Xr) 225 mg DAILY PO Last administered on 05/25/19at 08:50; Start 05/25/19 at 09:00 Budesonide (Pulmicort) 0.5 mg RTBID NEB Last administered on 05/26/19at 07:32; Start 05/25/19 at 08:00 Albuterol Sulfate (Ventolin Neb Soln) 2.5 mg RTQID NEB ; Start 05/25/19 at 08:00 Potassium Chloride/Water 100 ml @ 100 mls/hr Q1H IV Last administered on 05/25/19at 10:00; Start 05/25/19 at 07:00; Stop 05/25/19 at 10:59; Status DC Potassium Chloride/Water 100 ml @ 100 mls/hr Q1H IV Last administered on 05/25/19at 18:00; Start 05/25/19 at 13:00; Stop 05/25/19 at 16:59; Status DC Info (Anti-Coagulation Monitoring By Pharmacy) 1 each PRN DAILY PRN MC SEE COMMENTS Last administered on 05/25/19at 13:13; Start 05/25/19 at 09:00 Multi-Ingredient Mouthwash/Gargle (Magic Mouthwash) 10 ml PRN QID PRN PO MOUTH PAIN Last administered on 05/26/19at 03:05; Start 05/25/19 at 10:15 Valacyclovir HCl (Valtrex) 500 mg BID PO Last administered on 05/25/19at 21:19; Start 05/25/19 at 11:00 Potassium Chloride/Water 100 ml @ 100 mls/hr Q1H IV Last administered on 05/26/19at 04:31; Start 05/25/19 at 23:45; Stop 05/26/19 at 03:44; Status DC Potassium Chloride/Water 100 ml @ 100 mls/hr Q1H IV ; Start 05/26/19 at 11:30; Stop 05/26/19 at 06:17; Status DC Potassium Chloride/Water 100 ml @ 100 mls/hr Q1H IV Last administered on 05/26/19at 06:29; Start 05/26/19 at 06:30; Stop 05/26/19 at 08:29 Active Scripts Active Seroquel (Quetiapine Fumarate) 25 Mg Tablet 1 Tab PO QHS Reported Gabapentin 300 Mg Capsule 900 Mg PO TID Eliquis (Apixaban) 5 Mg Tablet 5 Mg PO BID Xeloda (Capecitabine) 500 Mg Tablet 2,000 Mg PO BIDWMEALS Oxycontin (Oxycodone HCl) 20 Mg Tab.er.12h 20 Mg PO BID Compazine (Prochlorperazine Maleate) 10 Mg Tablet 10 Mg PO Q6HRS Topiramate 100 Mg Tablet 2 Tab PO BID Venlafaxine Hcl Er (Venlafaxine Hcl) 225 Mg Tab.er.24 1 Tab PO DAILY Xanax (Alprazolam) 0.5 Mg Tablet 1 Tab PO PRN BID PRN Levocetirizine Dihydrochloride 5 Mg Tablet 5 Mg PO HS Carvedilol (Carvedilol) 6.25 Mg Tablet 6.25 Mg PO BIDWMEALS Oxycodone Hcl Immed.release (Oxycodone Hcl) 10 Mg Tablet 10 Mg PO Q6HRS PRN Relpax (Eletriptan Hbr) 40 Mg Tablet 40 Mg PO PRN PRN Flonase Allergy Relief (Fluticasone Propionate) 9.9 Ml [place].susp 2 Sprays NS DAILY Duoneb 0.5-3(2.5) Mg/3 Ml (Albuterol/Ipratropium) 3 Ml Ampul.neb 3 Ml NEB QID Proair Hfa Inhaler (Albuterol Sulfate) 8.5 Gm Hfa.aer.ad 1 Puff INH PRN Q6HRS PRN Advair 250-50 Diskus (Fluticasone/Salmeterol) 1 Each Disk.w.dev 1 Inh IH BID Cyclobenzaprine Hcl 10 Mg Tablet 10 Mg PO TID PRN PRN Atorvastatin Calcium 40 Mg Tablet 20 Mg PO HS Singulair Tablet (Montelukast Sodium) 10 Mg Tablet 10 Mg PO HS Vitals/I & O Vital Sign - Last 24 Hours 05/25/19 05/25/19 05/25/19 05/25/19 11:00 12:23 15:00 15:38 Temp 98.3 97.9 98.3 97.9 Pulse 95 101 Resp 20 20 B/P (MAP) 101/60 (74) 87/51 (63) Pulse Ox 98 99 99 98 O2 Delivery Nasal Cannula Nasal Cannula Nasal Cannula Nasal Cannula O2 Flow Rate 5.0 5.0 5.0 5.0 05/25/19 05/25/19 05/25/19 05/25/19 17:00 19:50 20:00 21:18 Temp 98.1 98.1 Pulse 101 96 Resp 20 18 B/P (MAP) 87/51 138/57 (84) Pulse Ox 100 100 O2 Delivery Nasal Cannula Nasal Cannula Nasal Cannula O2 Flow Rate 5.0 5.0 5.0 05/25/19 05/26/19 05/26/19 05/26/19 23:30 01:18 03:30 07:32 Temp 97.8 97.8 97.8 97.8 Pulse 99 102 Resp 20 18 20 B/P (MAP) 133/56 (81) 116/55 (75) Pulse Ox 99 94 94 98 O2 Delivery Nasal Cannula Nasal Cannula Nasal Cannula Nasal Cannula O2 Flow Rate 5.0 5.0 5.0 5.0 Intake and Output 05/25/19 05/25/19 05/26/19 15:00 23:00 07:00 Intake Total 550 ml 900 ml 1000 ml Output Total 300 ml 1400 ml Balance 550 ml 600 ml -400 ml Nutrition Consultation Dietary Evaluation: Recommendations by RD: Protein supplementation Comments: Continue w/cardiac diet as ordered, honor food preferences, and provide snacks as requested; can liberalize to regular if needed to promote PO intake/allow more food options REC Ensure TID (chocolate or vanilla) Expected Outcomes/Goals: PO intake to meet >75% est needs Interpretation of weight loss: >20% in 1 year Malnutrition Findings: Food and Nutrition Intake (Mod: <75% est energy req 7days Weight Status: Overweight DEWAYNE GASPAR MD May 26, 2019 08:09
[2019-05-26] MEDS ORDERED: POTASSIUM CHLORIDE 20 MEQ TABLET.ER. PO ONE (08:30)
[2019-05-26] MEDS ORDERED: POTASSIUM CHLORIDE 20 MEQ TABLET.ER. PO SCH (08:30)
[2019-05-26] MEDS: FLUTICASONE 50MCG/NASAL SPRAY 16GM BOTTLE. NS SCH (09:07)
[2019-05-26] MEDS: APIXABAN 5 MG TABLET. PO SCH ×2 (09:07→21:01)
[2019-05-26] MEDS: VENLAFAXINE XR 37.5 MG CAP.ER.24H. PO SCH (09:08)
[2019-05-26] MEDS: oxyCODONE ER 10 MG TAB.ER.12H PO SCH ×2 (09:11→21:04)
[2019-05-26] MEDS: CARVEDILOL 6.25 MG TABLET. PO SCH ×2 (09:12→17:49)
[2019-05-26] MEDS: TOPIRAMATE 100 MG TABLET. PO SCH ×2 (09:12→21:01)
[2019-05-26] MEDS: valACYclovir 500 MG TABLET. PO SCH ×2 (09:12→21:02)
[2019-05-26 11:00] VITALS: BP 90/51
[2019-05-26] MEDS: GABAPENTIN 300 MG CAPSULE. PO SCH ×3 (11:01→22:31)
[2019-05-26] MEDS ORDERED: POTASSIUM CHLORIDE 10MEQ 100 ML IV SCH (11:30)
[2019-05-26] MEDS: ANTI-COAG MONITOR BY PHARMACY. MC PRN (14:38)
[2019-05-26 15:00] VITALS: BP 101/54
[2019-05-26 20:28] VITALS: BP 92/51
[2019-05-26] MEDS: CETIRIZINE HCL 10 MG TABLET. PO SCH (21:01)
[2019-05-26] MEDS: MONTELUKAST SODIUM 10 MG TABLET. PO SCH (21:01)
[2019-05-26] MEDS: ATORVASTATIN CALCIUM 40 MG TABLET. PO SCH (21:02)
[2019-05-26] MEDS: QUEtiapine 25 MG TABLET. PO SCH (21:02)
[2019-05-26 23:43] VITALS: BP 94/42
[2019-05-27] MEDS: LIDO:MAALOX:BENADRYL 1:1:1 180 ML BOTTLE. PO PRN ×3 (01:49→22:22)
[2019-05-27 03:27] VITALS: BP 95/61
[2019-05-27 06:01] LABS: CALCIUM 6.9 mg/dL (8.5-10.1)
[2019-05-27 06:10] LABS: CREATININE 0.7 mg/dL (0.6-1.0); GFR 88.9
[2019-05-27] MEDS: PROCHLORPERAZINE 5 MG TABLET. PO SCH ×3 (06:35→17:45)
[2019-05-27 07:00] VITALS: BP 93/66
[2019-05-27] MEDS: ALBUTEROL SULFATE 2.5 MG/3 ML NEBU. NEB SCH ×3 (08:00→14:43)
[2019-05-27] MEDS: IPRATRPIUM/ALBUTEROL 0.5/2.5MG 3 ML NEBU. NEB SCH ×4 (08:00→20:00)
[2019-05-27] MEDS ORDERED: IV NORMAL SALINE 1000ML BAG 1,000 ML IV PRN (08:00)
[2019-05-27] MEDS: BUDESONIDE 0.5 MG/2 ML NEBU. NEB SCH ×2 (08:00→20:00)
[2019-05-27] MEDS: CARVEDILOL 6.25 MG TABLET. PO SCH ×2 (08:00→17:00)
--- NOTE | 2019-05-27 08:09 | PDOC ---
PROGRESS NOTES Chief Complaint Chief Complaint Hypokalemia Peripheral neuropathy Hyperdense appearance of the right sigmoid sinus, strongly favored to represent dural venous thrombosis Anemia Acute on chronic Hypoxic respiratory failure Hypotension Metastatic breast cancer - triple negative Expanded appearance of the right internal jugular vein which could reflect thrombus. Heterogenous sclerotic appearance of the osseous structures Left pleural effusion Anxiety with depression Asthma Smoker SEVERE PROTEIN CALORIE MALNUTRITION Confusion History of Present Illness History of Present Illness Ms Rausch is a 49-year-old female with past medical history of breast cancer with metastasis to bone and liver, asthma, migraines, smoker presents to the ED today for hypokalemia. Patient states she was informed by her oncologist her potassium was 2.1, labs were drawn this morning. Patient has some dizziness and bilateral hand and foot burning. 05/26: Potassium 2 here. EKG sinus. She is very weak, unable to stand. Improved to 2.3 after 80meq potassium on 05/25/19. Tells me after xeloda she always gets low K. Awaiting next draw currently. K 3 today, still very weak. O2 levels the same. No chest pain. A bit dizzy. Vitals Vitals Vital Signs Date Time Temp Pulse Resp B/P (MAP) Pulse Ox O2 Delivery O2 Flow Rate FiO2 05/27/19 03:27 97.7 100 14 95/61 (72) 100 Nasal Cannula 4.0 97.7 Physical Exam General: Alert, Oriented X3, Cooperative, No acute distress Heart: Regular rate Lungs: Crackles, Other Abdomen: Normal bowel sounds, Soft, No tenderness, No hepatosplenomegaly, No masses Extremities: No clubbing, No cyanosis Skin: No rashes Labs LABS Laboratory Tests Test 05/26/19 16:29 05/27/19 05:15 Potassium Level 2.9 mmol/L (3.5-5.1) 3.0 mmol/L (3.5-5.1) Sodium Level 141 mmol/L (136-145) Chloride Level 102 mmol/L (98-107) Carbon Dioxide Level 30 mmol/L (21-32) Anion Gap 9 (6-14) Blood Urea Nitrogen 6 mg/dL (7-20) Creatinine 0.7 mg/dL (0.6-1.0) Estimated GFR (Cockcroft-Gault) 88.9 Glucose Level 92 mg/dL (70-99) Calcium Level 6.9 mg/dL (8.5-10.1) Assessment and Plan Assessmemt and Plan Problems Medical Problems: (1) Hypokalemia Status: Acute Comment Review of Relevant I have reviewed the following items danya (where applicable) has been applied. Labs Laboratory Tests Test 05/25/19 21:15 05/26/19 16:29 05/27/19 05:15 Potassium Level 2.2 mmol/L (3.5-5.1) 2.9 mmol/L (3.5-5.1) 3.0 mmol/L (3.5-5.1) Sodium Level 141 mmol/L (136-145) Chloride Level 102 mmol/L (98-107) Carbon Dioxide Level 30 mmol/L (21-32) Anion Gap 9 (6-14) Blood Urea Nitrogen 6 mg/dL (7-20) Creatinine 0.7 mg/dL (0.6-1.0) Estimated GFR (Cockcroft-Gault) 88.9 Glucose Level 92 mg/dL (70-99) Calcium Level 6.9 mg/dL (8.5-10.1) Laboratory Tests Test 05/26/19 16:29 05/27/19 05:15 Potassium Level 2.9 mmol/L (3.5-5.1) 3.0 mmol/L (3.5-5.1) Sodium Level 141 mmol/L (136-145) Chloride Level 102 mmol/L (98-107) Carbon Dioxide Level 30 mmol/L (21-32) Anion Gap 9 (6-14) Blood Urea Nitrogen 6 mg/dL (7-20) Creatinine 0.7 mg/dL (0.6-1.0) Estimated GFR (Cockcroft-Gault) 88.9 Glucose Level 92 mg/dL (70-99) Calcium Level 6.9 mg/dL (8.5-10.1) Medications Current Medications Potassium Chloride (Klor-Con) 40 meq 1X ONCE PO Last administered on 05/24/19at 17:33; Start 05/24/19 at 17:15; Stop 05/24/19 at 17:16; Status DC Ondansetron HCl (Zofran) 4 mg PRN Q8HRS PRN IV NAUSEA/VOMITING; Start 05/24/19 at 18:15; Stop 05/25/19 at 18:14; Status DC Morphine Sulfate (Morphine Sulfate) 4 mg PRN Q2HR PRN IV PAIN; Start 05/24/19 at 18:15; Stop 05/25/19 at 18:14; Status DC Acetaminophen (Tylenol) 650 mg PRN Q4HRS PRN PO FEVER; Start 05/24/19 at 18:15; Stop 05/25/19 at 18:14; Status DC Potassium Chloride/Water 100 ml @ 100 mls/hr Q1H IV Last administered on 05/24/19at 22:54; Start 05/24/19 at 19:00; Stop 05/24/19 at 22:59; Status DC Albuterol Sulfate (Ventolin Neb Soln) 2.5 mg PRN Q6HRS PRN INH SHORTNESS OF BREATH; Start 05/24/19 at 22:00 Alprazolam (Xanax) 0.5 mg PRN BID PRN PO ANXIETY; Start 05/24/19 at 22:00 Apixaban (Eliquis) 5 mg BID PO Last administered on 05/26/19 21:01; Start 05/24/19 at 22:30 Atorvastatin Calcium (Lipitor) 20 mg HS PO Last administered on 05/26/19 21:02; Start 05/24/19 at 22:30 Carvedilol (Coreg) 6.25 mg BIDWMEALS PO Last administered on 05/26/19 17:49; Start 05/25/19 at 08:00 Cyclobenzaprine HCl (Flexeril) 10 mg TID PRN PRN PO MUSCLE SPASMS; Start 05/24/19 at 22:00 Gabapentin (Neurontin) 900 mg TID PO Last administered on 05/26/19at 22:31; Start 05/24/19 at 22:30 Albuterol/ Ipratropium (Duoneb) 3 ml RTQID NEB Last administered on 05/26/19 20:15; Start 05/25/19 at 08:00 Montelukast Sodium (Singulair) 10 mg HS PO Last administered on 05/26/19 21:01; Start 05/24/19 at 22:30 Quetiapine Fumarate (SEROquel) 25 mg QHS PO Last administered on 05/26/19at 21:02; Start 05/24/19 at 22:30 Topiramate (Topamax) 200 mg BID PO Last administered on 05/26/19at 21:01; St art 05/24/19 at 22:30 Non-Formulary Medication (Capecitabine (Xeloda)) 2,000 mg BIDWMEALS PO ; Start 05/25/19 at 08:00; Stop 05/25/19 at 13:23; Status DC Sumatriptan Succinate (Imitrex) 100 mg PRN Q2HR PRN PO MIGRAINE HEADACHE; Start 05/25/19 at 07:30 Fluticasone Propionate (Flonase) 2 spray DAILY NS Last administered on 05/26/19at 09:07; Start 05/25/19 at 09:00 Non-Formulary Medication (Fluticasone/ Salmeterol (Advair 250-50 Diskus)) 1 inh BID IH ; Start 05/25/19 at 09:00; Status UNV Cetirizine HCl (ZyrTEC) 10 mg HS PO Last administered on 05/26/19at 21:01; Start 05/25/19 at 21:00 Oxycodone HCl (Roxicodone) 10 mg PRN Q6HRS PRN PO PAIN; Start 05/24/19 at 22:00 Oxycodone HCl (OxyCONTIN) 20 mg BID PO Last administered on 05/26/19at 21:04; Start 05/24/19 at 22:30 Prochlorperazine Maleate (Compazine) 10 mg Q6HRS PO Last administered on 05/27/19at 06:35; Start 05/25/19 at 00:00 Venlafaxine HCl (Effexor Xr) 225 mg DAILY PO Last administered on 05/26/19at 09:08; Start 05/25/19 at 09:00 Budesonide (Pulmicort) 0.5 mg RTBID NEB Last administered on 05/26/19at 20:15; Start 05/25/19 at 08:00 Albuterol Sulfate (Ventolin Neb Soln) 2.5 mg RTQID NEB ; Start 05/25/19 at 08:00 Potassium Chloride/Water 100 ml @ 100 mls/hr Q1H IV Last administered on 05/25at 10:00; Start 05/25/19 at 07:00; Stop 05/25/19 at 10:59; Status DC Potassium Chloride/Water 100 ml @ 100 mls/hr Q1H IV Last administered on 05/25/19at 18:00; Start 05/25/19 at 13:00; Stop 05/25/19 at 16:59; Status DC Info (Anti-Coagulation Monitoring By Pharmacy) 1 each PRN DAILY PRN MC SEE COMMENTS Last administered on 05/26/19at 14:38; Start 05/25/19 at 09:00 Multi-Ingredient Mouthwash/Gargle (Magic Mouthwash) 10 ml PRN QID PRN PO MOUTH PAIN Last administered on 05/27/19at 01:49; Start 05/25/19 at 10:15 Valacyclovir HCl (Valtrex) 500 mg BID PO Last administered on 05/26/19at 21:02; Start 05/25/19 at 11:00 Potassium Chloride/Water 100 ml @ 100 mls/hr Q1H IV Last administered on 05/26/19at 04:31; Start 05/25/19 at 23:45; Stop 05/26/19 at 03:44; Status DC Potassium Chloride/Water 100 ml @ 100 mls/hr Q1H IV ; Start 05/26/19 at 11:30; Stop 05/26/19 at 06:17; Status DC Potassium Chloride/Water 100 ml @ 100 mls/hr Q1H IV Last administered on 05/26/19at 09:13; Start 05/26/19 at 06:30; Stop 05/26/19 at 08:29; Status DC Potassium Chloride (Klor-Con) 20 meq DAILYWBKFT PO ; Start 05/26/19 at 08:30; Stop 05/26/19 at 08:10; Status DC Potassium Chloride (Klor-Con) 40 meq 1X ONCE PO Last administered on 05/26/19at 09:11; Start 05/26/19 at 08:30; Stop 05/26/19 at 08:31; Status DC Potassium Chloride (Klor-Con) 20 meq DAILYWBKFT PO ; Start 05/27/19 at 08:00 Potassium Chloride/Water 100 ml @ 100 mls/hr Q1H IV Last administered on 05/26/19at 23:41; Start 05/26/19 at 17:30; Stop 05/26/19 at 21:29; Status DC Active Scripts Active Seroquel (Quetiapine Fumarate) 25 Mg Tablet 1 Tab PO QHS Reported Gabapentin 300 Mg Capsule 900 Mg PO TID Eliquis (Apixaban) 5 Mg Tablet 5 Mg PO BID Xeloda (Capecitabine) 500 Mg Tablet 2,000 Mg PO BIDWMEALS Oxycontin (Oxycodone HCl) 20 Mg Tab.er.12h 20 Mg PO BID Compazine (Prochlorperazine Maleate) 10 Mg Tablet 10 Mg PO Q6HRS Topiramate 100 Mg Tablet 2 Tab PO BID Venlafaxine Hcl Er (Venlafaxine Hcl) 225 Mg Tab.er.24 1 Tab PO DAILY Xanax (Alprazolam) 0.5 Mg Tablet 1 Tab PO PRN BID PRN Levocetirizine Dihydrochloride 5 Mg Tablet 5 Mg PO HS Carvedilol (Carvedilol) 6.25 Mg Tablet 6.25 Mg PO BIDWMEALS Oxycodone Hcl Immed.release (Oxycodone Hcl) 10 Mg Tablet 10 Mg PO Q6HRS PRN Relpax (Eletriptan Hbr) 40 Mg Tablet 40 Mg PO PRN PRN Flonase Allergy Relief (Fluticasone Propionate) 9.9 Ml [place].susp 2 Sprays NS DAILY Duoneb 0.5-3(2.5) Mg/3 Ml (Albuterol/Ipratropium) 3 Ml Amp[place].neb 3 Ml NEB QID Proair Hfa Inhaler (Albuterol Sulfate) 8.5 Gm Hfa.aer.ad 1 Puff INH PRN Q6HRS PRN Advair 250-50 Diskus (Fluticasone/Salmeterol) 1 Each Disk.w.dev 1 Inh IH BID Cyclobenzaprine Hcl 10 Mg Tablet 10 Mg PO TID PRN PRN Atorvastatin Calcium 40 Mg Tablet 20 Mg PO HS Singulair Tablet (Montelukast Sodium) 10 Mg Tablet 10 Mg PO HS Vitals/I & O Vital Sign - Last 24 Hours 05/26/19 05/26/19 05/26/19 05/26/19 09:11 09:12 11:00 11:20 Temp 97.8 97.8 Pulse 102 94 Resp 16 20 B/P (MAP) 116/55 90/51 (64) Pulse Ox 100 96 O2 Delivery Nasal Cannula Nasal Cannula Nasal Cannula O2 Flow Rate 2.0 5.0 5.0 05/26/19 05/26/19 05/26/19 05/26/19 13:11 15:00 15:50 17:49 Temp 97.5 97.5 Pulse 91 96 Resp 16 20 B/P (MAP) 101/54 (70) 118/56 Pulse Ox 99 96 O2 Delivery Nasal Cannula Nasal Cannula Nasal Cannula O2 Flow Rate 6.0 5.0 5.0 05/26/19 05/26/19 05/26/19 05/26/19 19:00 20:00 20:04 20:28 Temp 98.0 98.0 Pulse 89 Resp 18 B/P (MAP) 92/51 (65) Pulse Ox 98 100 O2 Delivery Nasal Cannula Nasal Cannula Nasal Cannula Nasal Cannula O2 Flow Rate 5.0 4.0 4.0 05/26/19 05/26/19 05/27/19 05/27/19 21:04 23:43 01:04 03:27 Temp 98.0 97.7 98.0 97.7 Pulse 95 100 Resp 16 16 16 14 B/P (MAP) 94/42 (59) 95/61 (72) Pulse Ox 100 100 95 100 O2 Delivery Nasal Cannula Nasal Cannula Nasal Cannula Nasal Cannula O2 Flow Rate 4.0 4.0 4.0 4.0 Intake and Output 0 05/26/19 05/26/19 05/27/19 14:59 22:59 06:59 Intake Total 300 ml 200 ml 440 ml Balance 300 ml 200 ml 440 ml Nutrition Consultation Dietary Evaluation: Recommendations by RD: Protein supplementation Comments: Continue w/cardiac diet as ordered, honor food preferences, and provide snacks as requested; can liberalize to regular if needed to promote PO intake/allow more food options REC Ensure TID (chocolate or vanilla) Expected Outcomes/Goals: PO intake to meet >75% est needs Interpretation of weight loss: >20% in 1 year Malnutrition Findings: Food and Nutrition Intake (Mod: <75% est energy req 7days Weight Status: Overweight DEWAYNE GASPAR MD May 27, 2019 08:09
[2019-05-27] MEDS ORDERED: POTASSIUM CHLORIDE 20 MEQ TABLET.ER. PO ONE (08:15)
[2019-05-27] MEDS: GABAPENTIN 300 MG CAPSULE. PO SCH ×3 (09:00→22:27)
[2019-05-27] MEDS: POTASSIUM CHLORIDE 10MEQ 100 ML IV SCH ×4 (09:02→13:22)
[2019-05-27 11:00] VITALS: BP 100/51
[2019-05-27] MEDS: POTASSIUM CHLORIDE 20 MEQ TABLET.ER. PO SCH (11:09)
[2019-05-27] MEDS: valACYclovir 500 MG TABLET. PO SCH ×2 (11:09→22:16)
[2019-05-27] MEDS: VENLAFAXINE XR 37.5 MG CAP.ER.24H. PO SCH (11:09)
[2019-05-27] MEDS: FLUTICASONE 50MCG/NASAL SPRAY 16GM BOTTLE. NS SCH (11:10)
[2019-05-27] MEDS: APIXABAN 5 MG TABLET. PO SCH ×2 (11:10→22:18)
[2019-05-27] MEDS: TOPIRAMATE 100 MG TABLET. PO SCH ×2 (11:11→22:15)
[2019-05-27] MEDS: oxyCODONE ER 10 MG TAB.ER.12H PO SCH ×2 (11:12→22:18)
[2019-05-27] MEDS: ANTI-COAG MONITOR BY PHARMACY. MC PRN (13:28)
[2019-05-27 15:00] VITALS: BP 102/59
--- NOTE | 2019-05-27 18:27 | NUR ---
Emar Documention: Carvelilol 6.25mg held this am and evening due to low blood pressure of 99/54. Dr. García aware
[2019-05-27 19:47] VITALS: BP 94/65
[2019-05-27] MEDS: MONTELUKAST SODIUM 10 MG TABLET. PO SCH (22:15)
[2019-05-27] MEDS: CETIRIZINE HCL 10 MG TABLET. PO SCH (22:16)
[2019-05-27] MEDS: ATORVASTATIN CALCIUM 40 MG TABLET. PO SCH (22:16)
[2019-05-27] MEDS: QUEtiapine 25 MG TABLET. PO SCH (22:16)
[2019-05-27 23:54] VITALS: BP 96/52
[2019-05-28 03:47] VITALS: BP 94/46
[2019-05-28] MEDS: LIDO:MAALOX:BENADRYL 1:1:1 180 ML BOTTLE. PO PRN ×4 (04:08→20:55)
[2019-05-28] MEDS: PROCHLORPERAZINE 5 MG TABLET. PO SCH ×4 (04:12→18:00)
[2019-05-28 06:25] LABS: CALCIUM 6.8 mg/dL (8.5-10.1); CREATININE 0.6 mg/dL (0.6-1.0); GFR 106.3; MAGNESIUM 2.2 mg/dL (1.8-2.4); POTASSIUM 3.3 mmol/L (3.5-5.1)
[2019-05-28] MEDS: ALBUTEROL SULFATE 2.5 MG/3 ML NEBU. NEB SCH ×3 (07:32→19:50)
[2019-05-28] MEDS: BUDESONIDE 0.5 MG/2 ML NEBU. NEB SCH ×2 (07:32→19:50)
[2019-05-28] MEDS: IPRATRPIUM/ALBUTEROL 0.5/2.5MG 3 ML NEBU. NEB SCH ×4 (07:32→19:50)
[2019-05-28 07:45] VITALS: BP 103/63
--- NOTE | 2019-05-28 09:06 | PDOC ---
PROGRESS NOTES Subjective Subjective HPI - f/u of Metastatic breast cancer ROS - feels weak Objective Objective Vital Signs Date Time Temp Pulse Resp B/P (MAP) Pulse Ox O2 Delivery O2 Flow Rate FiO2 05/28/19 07:45 98.0 99 18 103/63 (76) 98 Nasal Cannula 2.0 98.0 Intake and Output 05/28/19 06:59 Intake Total 2173 ml Output Total 1700 ml Balance 473 ml Intake Oral 1123 ml IV Total 1050 ml Output Urine Total 1700 ml # Voids 4 Physical Exam General: Alert, Oriented X3, No acute distress Neuro: Normal speech Psych/Mental Status: Mental status NL Assessment Assessment Problems Medical Problems: (1) Hypokalemia Status: Acute Assessment and Plan: 49-year-old female with metastatic breast cancer on Xeloda, admitted for hypotension and electrolyte abnormality 1. Hand-foot syndrome: Continue pain meds, she has Aquaphor, can use Vaseline as well for keeping area moist 2. Peripheral neuropathy: gabapentin as needed 3. Recent cerebral vein thrombosis: Fine to continue eliquis 4. hypokalemia - K 3.3 5. Metastatic breast cancer: Xeloda is on hold, would dose reduce at a minimum before re-dosing, I d/w her hospice options as she mentions she is concerned about getting sick again with chemo, she has a cousin who works in hospice and we would consult her when ready. I d/w Dr García. 6. Mouth sores: Valtrex 500 twice a day and triple mix as needed Comment Review of Relevant I have reviewed the following items danya (where applicable) has been applied. Labs Laboratory Tests Test 05/26/19 16:29 05/27/19 05:15 05/28/19 04:55 Potassium Level 2.9 mmol/L (3.5-5.1) 3.0 mmol/L (3.5-5.1) 3.3 mmol/L (3.5-5.1) Sodium Level 141 mmol/L (136-145) 145 mmol/L (136-145) Chloride Level 102 mmol/L (98-107) 109 mmol/L (98-107) Carbon Dioxide Level 30 mmol/L (21-32) 27 mmol/L (21-32) Anion Gap 9 (6-14) 9 (6-14) Blood Urea Nitrogen 6 mg/dL (7-20) 6 mg/dL (7-20) Creatinine 0.7 mg/dL (0.6-1.0) 0.6 mg/dL (0.6-1.0) Estimated GFR (Cockcroft-Gault) 88.9 106.3 Glucose Level 92 mg/dL (70-99) 83 mg/dL (70-99) Calcium Level 6.9 mg/dL (8.5-10.1) 6.8 mg/dL (8.5-10.1) Magnesium Level 2.2 mg/dL (1.8-2.4) Laboratory Tests Test 05/28/19 04:55 Sodium Level 145 mmol/L (136-145) Potassium Level 3.3 mmol/L (3.5-5.1) Chloride Level 109 mmol/L (98-107) Carbon Dioxide Level 27 mmol/L (21-32) Anion Gap 9 (6-14) Blood Urea Nitrogen 6 mg/dL (7-20) Creatinine 0.6 mg/dL (0.6-1.0) Estimated GFR (Cockcroft-Gault) 106.3 Glucose Level 83 mg/dL (70-99) Calcium Level 6.8 mg/dL (8.5-10.1) Magnesium Level 2.2 mg/dL (1.8-2.4) Medications Current Medications Potassium Chloride (Klor-Con) 40 meq 1X ONCE PO Last administered on 05/24/19at 17:33; Start 05/24/19 at 17:15; Stop 05/24/19 at 17:16; Status DC Ondansetron HCl (Zofran) 4 mg PRN Q8HRS PRN IV NAUSEA/VOMITING; Start 05/24/19 at 18:15; Stop 05/25/19 at 18:14; Status DC Morphine Sulfate (Morphine Sulfate) 4 mg PRN Q2HR PRN IV PAIN; Start 05/24/19 at 18:15; Stop 05/25/19 at 18:14; Status DC Acetaminophen (Tylenol) 650 mg PRN Q4HRS PRN PO FEVER; Start 05/24/19 at 18:15; Stop 05/25/19 at 18:14; Status DC Potassium Chloride/Water 100 ml @ 100 mls/hr Q1H IV Last administered on 05/24/19at 22:54; Start 05/24/19 at 19:00; Stop 05/24/19 at 22:59; Status DC Albuterol Sulfate (Ventolin Neb Soln) 2.5 mg PRN Q6HRS PRN INH SHORTNESS OF BREATH; Start 05/24/19 at 22:00 Alprazolam (Xanax) 0.5 mg PRN BID PRN PO ANXIETY; Start 05/24/19 at 22:00 Apixaban (Eliquis) 5 mg BID PO Last administered on 05/27/19at 22:18; Start 05/24/19 at 22:30 Atorvastatin Calcium (Lipitor) 20 mg HS PO Last administered on 05/27/19at 22:16; Start 05/24/19 at 22:30 Carvedilol (Coreg) 6.25 mg BIDWMEALS PO Last administered on 05/26/19at 17:49; Start 05/25/19 at 08:00 Cyclobenzaprine HCl (Flexeril) 10 mg TID PRN PRN PO MUSCLE SPASMS; Start 05/24/19 at 22:00 Gabapentin (Neurontin) 900 mg TID PO Last administered on 05/27/19at 22:27; Start 05/24/19 at 22:30 Albuterol/ Ipratropium (Duoneb) 3 ml RTQID NEB Last administered on 05/26/19at 20:15; Start 05/25/19 at 08:00 Montelukast Sodium (Singulair) 10 mg HS PO Last administered on 05/27/19at 22:15; Start 05/24/19 at 22:30 Quetiapine Fumarate (SEROquel) 25 mg QHS PO Last administered on 05/27/19at 22:16; Start 05/24/19 at 22:30 Topiramate (Topamax) 200 mg BID PO Last administered on 05/27/19at 22:15; Start 05/24/19 at 22:30 Non-Formulary Medication (Capecitabine (Xeloda)) 2,000 mg BIDWMEALS PO ; Start 05/25/19 at 08:00; Stop 05/25/19 at 13:23; Status DC Sumatriptan Succinate (Imitrex) 100 mg PRN Q2HR PRN PO MIGRAINE HEADACHE; Start 05/25/19 at 07:30 Fluticasone Propionate (Flonase) 2 spray DAILY NS Last administered on 05/27/19at 11:10; Start 05/25/19 at 09:00 Non-Formulary Medication (Fluticasone/ Salmeterol (Advair 250-50 Diskus)) 1 inh BID IH ; Start 05/25/19 at 09:00; Status UNV Cetirizine HCl (ZyrTEC) 10 mg HS PO Last administered on 05/27/19at 22:16; Start 05/25/19 at 21:00 Oxycodone HCl (Roxicodone) 10 mg PRN Q6HRS PRN PO PAIN; Start 05/24/19 at 22:00 Oxycodone HCl (OxyCONTIN) 20 mg BID PO Last administered on 05/27/19at 22:18; Start 05/24/19 at 22:30 Prochlorperazine Maleate (Compazine) 10 mg Q6HRS PO Last administered on 05/28/19at 04:12; Start 05/25/19 at 00:00 Venlafaxine HCl (Effexor Xr) 225 mg DAILY PO Last administered on 05/27/19 11:09; Start 05/25/19 at 09:00 Budesonide (Pulmicort) 0.5 mg RTBID NEB Last administered on 05/26/19at 20:15; Start 05/25/19 at 08:00 Albuterol Sulfate (Ventolin Neb Soln) 2.5 mg RTQID NEB ; Start 05/25/19 at 08:00 Potassium Chloride/Water 100 ml @ 100 mls/hr Q1H IV Last administered on 05/25/19at 10:00; Start 05/25/19 at 07:00; Stop 05/25/19 at 10:59; Status DC Potassium Chloride/Water 100 ml @ 100 mls/hr Q1H IV Last administered on 05/25/19at 18:00; Start 05/25/19 at 13:00; Stop 05/25/19 at 16:59; Status DC Info (Anti-Coagulation Monitoring By Pharmacy) 1 each PRN DAILY PRN MC SEE COMMENTS Last administered on 05/27/19at 13:28; Start 05/25/19 at 09:00 Multi-Ingredient Mouthwash/Gargle (Magic Mouthwash) 10 ml PRN QID PRN PO MOUTH PAIN Last administered on 05/28/19at 04:08; Start 05/25/19 at 10:15 Valacyclovir HCl (Valtrex) 500 mg BID PO Last administered on 05/27/19at 22:16; Start 05/25/19 at 11:00 Potassium Chloride/Water 100 ml @ 100 mls/hr Q1H IV Last administered on 05/26/19at 04:31; Start 05/25/19 at 23:45; Stop 05/26/19 at 03:44; Status DC Potassium Chloride/Water 100 ml @ 100 mls/hr Q1H IV ; Start 05/26/19 at 11:30; Stop 05/26/19 at 06:17; Status DC Potassium Chloride/Water 100 ml @ 100 mls/hr Q1H IV Last administered on 05/26/19at 09:13; Start 05/26/19 at 06:30; Stop 05/26/19 at 08:29; Status DC Potassium Chloride (Klor-Con) 20 meq DAILYWBKFT PO ; Start 05/26/19 at 08:30; Stop 05/26/19 at 08:10; Status DC Potassium Chloride (Klor-Con) 40 meq 1X ONCE PO Last administered on 05/26/19at 09:11; Start 05/26/19 at 08:30; Stop 05/26/19 at 08:31; Status DC Potassium Chloride (Klor-Con) 20 meq DAILYWBKFT PO Last administered on 05/27/19at 11:09; Start 05/27/19 at 08:00 Potassium Chloride/Water 100 ml @ 100 mls/hr Q1H IV Last administered on 05/26/19at 23:41; Start 05/26/19 at 17:30; Stop 05/26/19 at 21:29; Status DC Potassium Chloride/Water 100 ml @ 100 mls/hr Q1H IV Last administered on 05/27/19at 13:22; Start 05/27/19 at 08:30; Stop 05/27/19 at 12:29; Status DC Potassium Chloride (Klor-Con) 20 meq 1X ONCE PO Last administered on 05/27/19at 11:09; Start 05/27/19 at 08:15; Stop 05/27/19 at 08:16; Status DC Sodium Chloride 1,000 ml @ 100 mls/hr Q10H PRN IV PER PROTOCOL Last administered on 05/27/19at 08:00; Start 05/27/19 at 08:00 Active Scripts Active Seroquel (Quetiapine Fumarate) 25 Mg Tablet 1 Tab PO QHS Reported Gabapentin 300 Mg Capsule 900 Mg PO TID Eliquis (Apixaban) 5 Mg Tablet 5 Mg PO BID Xeloda (Capecitabine) 500 Mg Tablet 2,000 Mg PO BIDWMEALS Oxycontin (Oxycodone HCl) 20 Mg Tab.er.12h 20 Mg PO BID Compazine (Prochlorperazine Maleate) 10 Mg Tablet 10 Mg PO Q6HRS Topiramate 100 Mg Tablet 2 Tab PO BID Venlafaxine Hcl Er (Venlafaxine Hcl) 225 Mg Tab.er.24 1 Tab PO DAILY Xanax (Alprazolam) 0.5 Mg Tablet 1 Tab PO PRN BID PRN Levocetirizine Dihydrochloride 5 Mg Tablet 5 Mg PO HS Carvedilol (Carvedilol) 6.25 Mg Tablet 6.25 Mg PO BIDWMEALS Oxycodone Hcl Immed.release (Oxycodone Hcl) 10 Mg Tablet 10 Mg PO Q6HRS PRN Relpax (Eletriptan Hbr) 40 Mg Tablet 40 Mg PO PRN PRN Flonase Allergy Relief (Fluticasone Propionate) 9.9 Ml [place].susp 2 Sprays NS DAILY Duoneb 0.5-3(2.5) Mg/3 Ml (Albuterol/Ipratropium) 3 Ml Ampul.neb 3 Ml NEB QID Proair Hfa Inhaler (Albuterol Sulfate) 8.5 Gm Hfa.aer.ad 1 Puff INH PRN Q6HRS PRN Advair 250-50 Diskus (Fluticasone/Salmeterol) 1 Each Disk.w.dev 1 Inh IH BID Cyclobenzaprine Hcl 10 Mg Tablet 10 Mg PO TID PRN PRN Atorvastatin Calcium 40 Mg Tablet 20 Mg PO HS Singulair Tablet (Montelukast Sodium) 10 Mg Tablet 10 Mg PO HS Vitals/I & O Vital Sign - Last 24 Hours 05/27/19 05/27/19 05/27/19 05/27/19 11:00 11:12 15:00 15:12 Temp 98.2 98.2 98.2 98.2 Pulse 101 100 Resp 16 16 18 16 B/P (MAP) 100/51 (67) 102/59 (73) Pulse Ox 95 97 O2 Delivery Nasal Cannula Nasal Cannula Nasal Cannula Nasal Cannula O2 Flow Rate 4.0 2.0 4.0 2.0 05/27/19 05/27/19 05/27/19 05/27/19 19:47 20:00 22:18 23:54 Temp 98.3 99.1 98.3 99.1 Pulse 102 105 Resp 18 20 18 B/P (MAP) 94/65 (75) 96/52 (67) Pulse Ox 98 97 95 O2 Delivery Nasal Cannula Nasal Cannula Nasal Cannula Nasal Cannula O2 Flow Rate 4.0 2.0 2.0 4.0 05/28/19 05/28/19 05/28/19 02:18 03:47 07:45 Temp 98.4 98.0 98.4 98.0 Pulse 103 99 Resp 18 18 18 B/P (MAP) 94/46 (62) 103/63 (76) Pulse Ox 98 98 98 O2 Delivery Nasal Cannula Nasal Cannula Nasal Cannula O2 Flow Rate 2.0 2.0 2.0 Intake and Output 05/27/19 05/27/19 05/28/19 14:59 22:59 06:59 Intake Total 623 ml 800 ml 750 ml Output Total 1700 ml Balance -1077 ml 800 ml 750 ml Nutrition Consultation Dietary Evaluation: Recommendations by RD: Protein supplementation Comments: Continue w/cardiac diet as ordered, honor food preferences, and provide snacks as requested; can liberalize to regular if needed to promote PO intake/allow more food options REC Ensure TID (chocolate or vanilla) Expected Outcomes/Goals: PO intake to meet >75% est needs Interpretation of weight loss: >20% in 1 year Malnutrition Findings: Food and Nutrition Intake (Mod: <75% est energy req 7days Weight Status: Overweight JEREYM MELO MD May 28, 2019 09:06
[2019-05-28] MEDS: POTASSIUM CHLORIDE 20 MEQ TABLET.ER. PO SCH (09:14)
[2019-05-28] MEDS: GABAPENTIN 300 MG CAPSULE. PO SCH ×3 (09:15→20:43)
[2019-05-28] MEDS: APIXABAN 5 MG TABLET. PO SCH ×2 (09:15→20:54)
[2019-05-28] MEDS: TOPIRAMATE 100 MG TABLET. PO SCH ×2 (09:15→20:43)
[2019-05-28] MEDS: valACYclovir 500 MG TABLET. PO SCH ×2 (09:16→20:45)
[2019-05-28] MEDS: VENLAFAXINE XR 37.5 MG CAP.ER.24H. PO SCH (09:19)
--- NOTE | 2019-05-28 09:21 | PDOC ---
PROGRESS NOTES Chief Complaint Chief Complaint Hypokalemia Peripheral neuropathy Hyperdense appearance of the right sigmoid sinus, strongly favored to represent dural venous thrombosis Anemia Acute on chronic Hypoxic respiratory failure Hypotension Metastatic breast cancer - triple negative Expanded appearance of the right internal jugular vein which could reflect thrombus. Heterogenous sclerotic appearance of the osseous structures Left pleural effusion Anxiety with depression Asthma Smoker SEVERE PROTEIN CALORIE MALNUTRITION Confusion History of Present Illness History of Present Illness Ms Rausch is a 49-year-old female with past medical history of breast cancer with metastasis to bone and liver, asthma, migraines, smoker presents to the ED today for hypokalemia. Patient states she was informed by her oncologist her potassium was 2.1, labs were drawn this morning. Patient has some dizziness and bilateral hand and foot burning. 05/26: Potassium 2 here. EKG sinus. She is very weak, unable to stand. Improved to 2.3 after 80meq potassium on 05/25/19. Tells me after xeloda she always gets low K. Awaiting next draw currently. 05/27: K 2.3, still feeling weak. wants to stop xeloda K 3 today, still very weak. O2 levels the same. No chest pain. A bit dizzy. D/w heme/onc to have hospice referral. Apparently her insurance does not cover home health, palliative, or hospice. Will work with for hospice. Vitals Vitals Vital Signs Date Time Temp Pulse Resp B/P (MAP) Pulse Ox O2 Delivery O2 Flow Rate FiO2 05/28/19 07:45 98.0 99 18 103/63 (76) 98 Nasal Cannula 2.0 98.0 Physical Exam General: Alert, Oriented X3, No acute distress Heart: Regular rate Lungs: Crackles, Other Abdomen: Normal bowel sounds, Soft, No tenderness, No hepatosplenomegaly, No masses Extremities: No clubbing, No cyanosis Skin: No rashes Labs LABS Laboratory Tests Test 05/28/19 04:55 Sodium Level 145 mmol/L (136-145) Potassium Level 3.3 mmol/L (3.5-5.1) Chloride Level 109 mmol/L (98-107) Carbon Dioxide Level 27 mmol/L (21-32) Anion Gap 9 (6-14) Blood Urea Nitrogen 6 mg/dL (7-20) Creatinine 0.6 mg/dL (0.6-1.0) Estimated GFR (Cockcroft-Gault) 106.3 Glucose Level 83 mg/dL (70-99) Calcium Level 6.8 mg/dL (8.5-10.1) Magnesium Level 2.2 mg/dL (1.8-2.4) Assessment and Plan Assessmemt and Plan Problems Medical Problems: (1) Hypokalemia Status: Acute Comment Review of Relevant I have reviewed the following items danya (where applicable) has been applied. Labs Laboratory Tests Test 05/26/19 16:29 05/27/19 05:15 05/28/19 04:55 Potassium Level 2.9 mmol/L (3.5-5.1) 3.0 mmol/L (3.5-5.1) 3.3 mmol/L (3.5-5.1) Sodium Level 141 mmol/L (136-145) 145 mmol/L (136-145) Chloride Level 102 mmol/L (98-107) 109 mmol/L (98-107) Carbon Dioxide Level 30 mmol/L (21-32) 27 mmol/L (21-32) Anion Gap 9 (6-14) 9 (6-14) Blood Urea Nitrogen 6 mg/dL (7-20) 6 mg/dL (7-20) Creatinine 0.7 mg/dL (0.6-1.0) 0.6 mg/dL (0.6-1.0) Estimated GFR (Cockcroft-Gault) 88.9 106.3 Glucose Level 92 mg/dL (70-99) 83 mg/dL (70-99) Calcium Level 6.9 mg/dL (8.5-10.1) 6.8 mg/dL (8.5-10.1) Magnesium Level 2.2 mg/dL (1.8-2.4) Laboratory Tests Test 05/28/19 04:55 Sodium Level 145 mmol/L (136-145) Potassium Level 3.3 mmol/L (3.5-5.1) Chloride Level 109 mmol/L (98-107) Carbon Dioxide Level 27 mmol/L (21-32) Anion Gap 9 (6-14) Blood Urea Nitrogen 6 mg/dL (7-20) Creatinine 0.6 mg/dL (0.6-1.0) Estimated GFR (Cockcroft-Gault) 106.3 Glucose Level 83 mg/dL (70-99) Calcium Level 6.8 mg/dL (8.5-10.1) Magnesium Level 2.2 mg/dL (1.8-2.4) Medications Current Medications Potassium Chloride (Klor-Con) 40 meq 1X ONCE PO Last administered on 05/24/19at 17:33; Start 05/24/19 at 17:15; Stop 05/24/19 at 17:16; Status DC Ondansetron HCl (Zofran) 4 mg PRN Q8HRS PRN IV NAUSEA/VOMITING; Start 05/24/19 at 18:15; Stop 05/25/19 at 18:14; Status DC Morphine Sulfate (Morphine Sulfate) 4 mg PRN Q2HR PRN IV PAIN; Start 05/24/19 at 18:15; Stop 05/25/19 at 18:14; Status DC Acetaminophen (Tylenol) 650 mg PRN Q4HRS PRN PO FEVER; Start 05/24/19 at 18:15; Stop 05/25/19 at 18:14; Status DC Potassium Chloride/Water 100 ml @ 100 mls/hr Q1H IV Last administered on 05/24/19at 22:54; Start 05/24/19 at 19:00; Stop 05/24/19 at 22:59; Status DC Albuterol Sulfate (Ventolin Neb Soln) 2.5 mg PRN Q6HRS PRN INH SHORTNESS OF BREATH; Start 05/24/19 at 22:00 Alprazolam (Xanax) 0.5 mg PRN BID PRN PO ANXIETY; Start 05/24/19 at 22:00 Apixaban (Eliquis) 5 mg BID PO Last administered on 05/27/19at 22:18; Start 05/24/19 at 22:30 Atorvastatin Calcium (Lipitor) 20 mg HS PO Last administered on 05/27/19at 22:16; Start 05/24/19 at 22:30 Carvedilol (Coreg) 6.25 mg BIDWMEALS PO Last administered on 05/26/19at 17:49; Start 05/25/19 at 08:00 Cyclobenzaprine HCl (Flexeril) 10 mg TID PRN PRN PO MUSCLE SPASMS; Start 05/24/19 at 22:00 Gabapentin (Neurontin) 900 mg TID PO Last administered on 05/27/19at 22:27; Start 05/24/19 at 22:30 Albuterol/ Ipratropium (Duoneb) 3 ml RTQID NEB Last administered on 05/26/19at 20:15; Start 05/25/19 at 08:00 Montelukast Sodium (Singulair) 10 mg HS PO Last administered on 05/27/19at 22:15; Start 05/24/19 at 22:30 Quetiapine Fumarate (SEROquel) 25 mg QHS PO Last administered on 05/27/19at 22:16; Start 05/24/19 at 22:30 Topiramate (Topamax) 200 mg BID PO Last administered on 05/27/19at 22:15; Start 05/24/19 at 22:30 Non-Formulary Medication (Capecitabine (Xeloda)) 2,000 mg BIDWMEALS PO ; Start 05/25/19 at 08:00; Stop 05/25/19 at 13:23; Status DC Sumatriptan Succinate (Imitrex) 100 mg PRN Q2HR PRN PO MIGRAINE HEADACHE; Start 05/25/19 at 07:30 Fluticasone Propionate (Flonase) 2 spray DAILY NS Last administered on 05/27/19at 11:10; Start 05/25/19 at 09:00 Non-Formulary Medication (Fluticasone/ Salmeterol (Advair 250-50 Diskus)) 1 inh BID IH ; Start 05/25/19 at 09:00; Status UNV Cetirizine HCl (ZyrTEC) 10 mg HS PO Last administered on 05/27/19at 22:16; Start 05/25/19 at 21:00 Oxycodone HCl (Roxicodone) 10 mg PRN Q6HRS PRN PO PAIN; Start 05/24/19 at 22:00 Oxycodone HCl (OxyCONTIN) 20 mg BID PO Last administered on 05/27/19at 22:18; Start 05/24/19 at 22:30 Prochlorperazine Maleate (Compazine) 10 mg Q6HRS PO Last administered on 05/28/19at 04:12; Start 05/25/19 at 00:00 Venlafaxine HCl (Effexor Xr) 225 mg DAILY PO Last administered on 05/27/19at 11:09; Start 05/25/19 at 09:00 Budesonide (Pulmicort) 0.5 mg RTBID NEB Last administered on 05/26/19at 20:15; Start 05/25/19 at 08:00 Albuterol Sulfate (Ventolin Neb Soln) 2.5 mg RTQID NEB ; Start 05/25/19 at 08:00 Potassium Chloride/Water 100 ml @ 100 mls/hr Q1H IV Last administered on 05/25/19at 10:00; Start 05/25/19 at 07:00; Stop 05/25/19 at 10:59; Status DC Potassium Chloride/Water 100 ml @ 100 mls/hr Q1H IV Last administered on 05/25/19at 18:00; Start 05/25/19 at 13:00; Stop 05/25/19 at 16:59; Status DC Info (Anti-Coagulation Monitoring By Pharmacy) 1 each PRN DAILY PRN MC SEE COMMENTS Last administered on 05/27/19at 13:28; Start 05/25/19 at 09:00 Multi-Ingredient Mouthwash/Gargle (Magic Mouthwash) 10 ml PRN QID PRN PO MOUTH PAIN Last administered on 05/28/19at 04:08; Start 05/25/19 at 10:15 Valacyclovir HCl (Valtrex) 500 mg BID PO Last administered on 05/27/19at 22:16; Start 05/25/19 at 11:00 Potassium Chloride/Water 100 ml @ 100 mls/hr Q1H IV Last administered on 05/26/19at 04:31; Start 05/25/19 at 23:45; Stop 05/26/19 at 03:44; Status DC Potassium Chloride/Water 100 ml @ 100 mls/hr Q1H IV ; Start 05/26/19 at 11:30; Stop 05/26/19 at 06:17; Status DC Potassium Chloride/Water 100 ml @ 100 mls/hr Q1H IV Last administered on 05/26/19at 09:13; Start 05/26/19 at 06:30; Stop 05/26/19 at 08:29; Status DC Potassium Chloride (Klor-Con) 20 meq DAILYWBKFT PO ; Start 05/26/19 at 08:30; Stop 05/26/19 at 08:10; Status DC Potassium Chloride (Klor-Con) 40 meq 1X ONCE PO Last administered on 05/26/19at 09:11; Start 05/26/19 at 08:30; Stop 05/26/19 at 08:31; Status DC Potassium Chloride (Klor-Con) 20 meq DAILYWBKFT PO Last administered on 05/27/19at 11:09; Start 05/27/19 at 08:00 Potassium Chloride/Water 100 ml @ 100 mls/hr Q1H IV Last administered on 05/26/19at 23:41; Start 05/26/19 at 17:30; Stop 05/26/19 at 21:29; Status DC Potassium Chloride/Water 100 ml @ 100 mls/hr Q1H IV Last administered on 05/27/19at 13:22; Start 05/27/19 at 08:30; Stop 05/27/19 at 12:29; Status DC Potassium Chloride (Klor-Con) 20 meq 1X ONCE PO Last administered on 05/27/19at 11:09; Start 05/27/19 at 08:15; Stop 05/27/19 at 08:16; Status DC Sodium Chloride 1,000 ml @ 100 mls/hr Q10H PRN IV PER PROTOCOL Last administered on 05/27/19at 08:00; Start 05/27/19 at 08:00 Active Scripts Active Seroquel (Quetiapine Fumarate) 25 Mg Tablet 1 Tab PO QHS Reported Gabapentin 300 Mg Capsule 900 Mg PO TID Eliquis (Apixaban) 5 Mg Tablet 5 Mg PO BID Xeloda (Capecitabine) 500 Mg Tablet 2,000 Mg PO BIDWMEALS Oxycontin (Oxycodone HCl) 20 Mg Tab.er.12h 20 Mg PO BID Compazine (Prochlorperazine Maleate) 10 Mg Tablet 10 Mg PO Q6HRS Topiramate 100 Mg Tablet 2 Tab PO BID Venlafaxine Hcl Er (Venlafaxine Hcl) 225 Mg Tab.er.24 1 Tab PO DAILY Xanax (Alprazolam) 0.5 Mg Tablet 1 Tab PO PRN BID PRN Levocetirizine Dihydrochloride 5 Mg Tablet 5 Mg PO HS Carvedilol (Carvedilol) 6.25 Mg Tablet 6.25 Mg PO BIDWMEALS Oxycodone Hcl Immed.release (Oxycodone Hcl) 10 Mg Tablet 10 Mg PO Q6HRS PRN Relpax (Eletriptan Hbr) 40 Mg Tablet 40 Mg PO PRN PRN Flonase Allergy Relief (Fluticasone Propionate) 9.9 Ml [place].susp 2 Sprays NS DAILY Duoneb 0.5-3(2.5) Mg/3 Ml (Albuterol/Ipratropium) 3 Ml Ampul.neb 3 Ml NEB QID Proair Hfa Inhaler (Albuterol Sulfate) 8.5 Gm Hfa.aer.ad 1 Puff INH PRN Q6HRS PRN Advair 250-50 Diskus (Fluticasone/Salmeterol) 1 Each Disk.w.dev 1 Inh IH BID Cyclobenzaprine Hcl 10 Mg Tablet 10 Mg PO TID PRN PRN Atorvastatin Calcium 40 Mg Tablet 20 Mg PO HS Singulair Tablet (Montelukast Sodium) 10 Mg Tablet 10 Mg PO HS Vitals/I & O Vital Sign - Last 24 Hours 05/27/19 05/27/19 05/27/19 05/27/19 11:00 11:12 15:00 15:12 Temp 98.2 98.2 98.2 98.2 Pulse 101 100 Resp 16 16 18 16 B/P (MAP) 100/51 (67) 102/59 (73) Pulse Ox 95 97 O2 Delivery Nasal Cannula Nasal Cannula Nasal Cannula Nasal Cannula O2 Flow Rate 4.0 2.0 4.0 2.0 05/27/19 05/27/19 05/27/19 05/27/19 19:47 20:00 22:18 23:54 Temp 98.3 99.1 98.3 99.1 Pulse 102 105 Resp 18 20 18 B/P (MAP) 94/65 (75) 96/52 (67) Pulse Ox 98 97 95 O2 Delivery Nasal Cannula Nasal Cannula Nasal Cannula Nasal Cannula O2 Flow Rate 4.0 2.0 2.0 4.0 05/28/19 05/28/19 05/28/19 02:18 03:47 07:45 Temp 98.4 98.0 98.4 98.0 Pulse 103 99 Resp 18 18 18 B/P (MAP) 94/46 (62) 103/63 (76) Pulse Ox 98 98 98 O2 Delivery Nasal Cannula Nasal Cannula Nasal Cannula O2 Flow Rate 2.0 2.0 2.0 Intake and Output 05/27/19 05/27/19 05/28/19 15:00 23:00 07:00 Intake Total 623 ml 800 ml 750 ml Output Total 1700 ml Balance -1077 ml 800 ml 750 ml Nutrition Consultation Dietary Evaluation: Recommendations by RD: Protein supplementation Comments: Continue w/cardiac diet as ordered, honor food preferences, and provide snacks as requested; can liberalize to regular if needed to promote PO intake/allow more food options REC Ensure TID (chocolate or vanilla) Expected Outcomes/Goals: PO intake to meet >75% est needs Interpretation of weight loss: >20% in 1 year Malnutrition Findings: Food and Nutrition Intake (Mod: <75% est energy req 7days Weight Status: Overweight DEWAYNE GASPAR MD May 28, 2019 09:21
[2019-05-28] MEDS: FLUTICASONE 50MCG/NASAL SPRAY 16GM BOTTLE. NS SCH (09:26)
[2019-05-28] MEDS ORDERED: POTASSIUM CHLORIDE 20 MEQ TABLET.ER. PO ONE (09:30)
[2019-05-28] MEDS: POTASSIUM CHLORIDE 10MEQ 100 ML IV SCH ×5 (09:36→18:50)
[2019-05-28 10:22] VITALS: BP 105/55
[2019-05-28] MEDS: ANTI-COAG MONITOR BY PHARMACY. MC PRN (10:34)
[2019-05-28] MEDS: CARVEDILOL 6.25 MG TABLET. PO SCH ×2 (11:04→18:44)
[2019-05-28] MEDS: oxyCODONE ER 10 MG TAB.ER.12H PO SCH ×2 (11:04→20:45)
--- NOTE | 2019-05-28 12:02 | NUR ---
SS following up with discharge planning. No discharge needs noted at this time. SS will continue to follow for discharge planning.
[2019-05-28] MEDS ORDERED: POTA20TA4 PO (13:46)
--- NOTE | 2019-05-28 13:49 | NUR ---
SS following up with discharge planning. Dr. Howard recommending hospice for pt and pt agreeable but has insurance plan that does not provide benefits. SS working to try and arrange [facility] pt. SS phoned and faxed referral to [facility], ; fax [phone]. Brian reported that they would contact SS and notify if they would be able to accept. SS will continue to follow for discharge planning.
[2019-05-28 14:52] VITALS: BP 92/59
[2019-05-28 19:39] VITALS: BP 110/53
[2019-05-28] MEDS: ATORVASTATIN CALCIUM 40 MG TABLET. PO SCH (20:42)
[2019-05-28] MEDS: MONTELUKAST SODIUM 10 MG TABLET. PO SCH (20:43)
[2019-05-28] MEDS: CETIRIZINE HCL 10 MG TABLET. PO SCH (20:44)
[2019-05-28] MEDS: QUEtiapine 25 MG TABLET. PO SCH (20:45)
[2019-05-28 22:50] VITALS: BP 93/61
[2019-05-29 02:52] VITALS: BP 117/50
[2019-05-29] MEDS: PROCHLORPERAZINE 5 MG TABLET. PO SCH (05:42)
[2019-05-29 07:00] VITALS: BP 96/59
[2019-05-29] MEDS: IPRATRPIUM/ALBUTEROL 0.5/2.5MG 3 ML NEBU. NEB SCH ×2 (08:04→11:52)
[2019-05-29] MEDS: BUDESONIDE 0.5 MG/2 ML NEBU. NEB SCH (08:04)
[2019-05-29] MEDS: TOPIRAMATE 100 MG TABLET. PO SCH (09:34)
[2019-05-29] MEDS: valACYclovir 500 MG TABLET. PO SCH (09:34)
[2019-05-29] MEDS: GABAPENTIN 300 MG CAPSULE. PO SCH (09:35)
[2019-05-29] MEDS: APIXABAN 5 MG TABLET. PO SCH (09:35)
[2019-05-29] MEDS: POTASSIUM CHLORIDE 20 MEQ TABLET.ER. PO SCH (09:35)
[2019-05-29] MEDS: VENLAFAXINE XR 37.5 MG CAP.ER.24H. PO SCH (09:36)
[2019-05-29] MEDS: oxyCODONE ER 10 MG TAB.ER.12H PO SCH (09:36)
[2019-05-29] MEDS: FLUTICASONE 50MCG/NASAL SPRAY 16GM BOTTLE. NS SCH (09:37)
--- NOTE | 2019-05-29 10:57 | SNU/HH DC ---
DISCHARGE ORDERS DISCHARGE INFORMATION: FINAL DIAGNOSIS Problems Medical Problems: (1) Hypokalemia Status: Acute CONDITION ON DISCHARGE: Stable CODE STATUS: Code Status: Full USP: SNF STAY <30 DAYS: No HOSPICE: HOSPICE: Yes HOSPICE EVAL & TREAT: Yes LTAC: ADMIT TO LTAC: No POST DISCHARGE ORDERS: ACTIVITY ORDERS: Activity as tolerated WEIGHT BEARING STATUS: No restrictions BATHING ORDERS: Shower-keep dressing dry, No Tub Bath until see DIET AFTER DISCHARGE: Regular WOUND/INCISION CARE: Keep wound/cast CDI CHECKS AFTER DISCHARGE: CHECKS AFTER DISCHARGE: Check blood press - daily TREATMENT/EQUIPMENT ORDERS: ADAPTIVE EQUIPMENT NEEDED: None RESPIRATORY EQUIPMENT NEEDED: Nebulizer DISCHARGE MEDICATIONS: Home Meds Active Scripts Potassium Chloride (KLOR-CON M20) 20 Meq Tab.er.prt, 20 MEQ PO DAILYWBKFT for hypokalemia for 30 Days, #30 TAB.SR Prov:DEWAYNE GASPAR MD 05/28/19 Quetiapine Fumarate (SEROQUEL) 25 Mg Tablet, 1 TAB PO QHS for sleep, #30 TAB Prov:KOJO KUMAR MD 05/13/19 Reported Medications Gabapentin (Gabapentin) 300 Mg Capsule, 900 MG PO TID for 05/24/19 Apixaban (ELIQUIS) 5 Mg Tablet, 5 MG PO BID for , TAB 05/24/19 Oxycodone Hcl (OXYCONTIN) 20 Mg Tab.er.12h, 20 MG PO BID for PAIN, TAB 04/16/19 Prochlorperazine Maleate (Compazine) 10 Mg Tablet, 10 MG PO Q6HRS for nausea, TAB 03/06/19 Topiramate (TOPIRAMATE) 100 Mg Tablet, 2 TAB PO BID for migraine, #60 TAB 1 Refill 03/06/19 Venlafaxine Hcl (VENLAFAXINE HCL ER) 225 Mg Tab.er.24, 1 TAB PO DAILY for DEPRESSION 09/05/18 Alprazolam (XANAX) 0.5 Mg Tablet, 1 TAB PO PRN BID PRN for ANXIETY 09/05/18 Levocetirizine Dihydrochloride (LEVOCETIRIZINE DIHYDROCHLORIDE) 5 Mg Tablet, 5 MG PO HS 03/09/18 Carvedilol (CARVEDILOL ) 6.25 Mg Tablet, 6.25 MG PO BIDWMEALS for cardiac/bp 03/09/18 Oxycodone Hcl (OXYCODONE HCL IMMED.RELEASE) 10 Mg Tablet, 10 MG PO Q6HRS PRN for PAIN 03/09/18 Eletriptan Hbr (RELPAX) 40 Mg Tablet, 40 MG PO PRN PRN for MIGRAINE HEADACHE, TAB 08/23/17 Fluticasone Propionate (Flonase Allergy Relief) 9.9 Ml [place].susp, 2 SPRAYS NS DAILY, BOTTLE 08/23/17 Ipratropium/Albuterol Sulfate (DUONEB 0.5-3(2.5) MG/3 ML) 3 Ml Ampul.neb, 3 ML NEB QID, EACH 08/23/17 Albuterol Sulfate (PROAIR HFA INHALER) 8.5 Gm Hfa.aer.ad, 1 PUFF INH PRN Q6HRS PRN for SHORTNESS OF BREATH, INHALER 0 Refills 08/23/17 Fluticasone/Salmeterol (ADVAIR 250-50 DISKUS) 1 Each Disk.w.dev, 1 INH IH BID, INHALER 08/23/17 Cyclobenzaprine Hcl (CYCLOBENZAPRINE HCL) 10 Mg Tablet, 10 MG PO TID PRN PRN for MUSCLE SPASMS 10/31/13 Atorvastatin Calcium (ATORVASTATIN CALCIUM) 40 Mg Tablet, 20 MG PO HS for cholesterol 10/31/13 Montelukast Sodium (SINGULAIR TABLET ) 10 Mg Tablet, 10 MG PO HS for asthma 10/31/13 Discontinued Reported Medications Capecitabine (XELODA) 500 Mg Tablet, 2000 MG PO BIDWMEALS for chemotherapy, TAB 05/08/19 Famotidine (PEPCID) 40 Mg Tablet, 40 MG PO HS for GERD, TAB 03/06/19 MARY POOL III DO May 29, 2019 10:57
[2019-05-29 11:00] VITALS: BP 109/56
--- NOTE | 2019-05-29 11:09 | NUR ---
SS following up with discharge planning. [facility] agreed to provide [facility] to pt. SS met with pt and spouse to discuss hospice further and pt's spouse reported that he works for [employer] and [facility], ; fax [phone], has agreed to provide pt with [facility] hospice. Pt's spouse reported that he would like to transport pt to home today in his truck with hospice services. SS phoned and faxed discharge orders and referral to [facility]. Pt's RN notified. SS notified hospice that pt will need oxygen at home.
--- NOTE | 2019-05-29 12:33 | NUR ---
Discharge: Teaching verbal and written. Reviewed medications, follow-up, hypokalemia, ect. patient and verbalized understanding. 2 written prescriptions given to patient, discharge packet and packet for [place]. IV removed without complications,catheter tip in-tact. All belongings with patient. Patient assisted off of unit via wheelchair accompanied by nurse and .
--- NOTE | 2019-05-29 12:54 | PDOC ---
PROGRESS NOTES Subjective Subjective HPI - f/u of Metastatic breast cancer ROS - feels very weak Objective Objective Vital Signs Date Time Temp Pulse Resp B/P (MAP) Pulse Ox O2 Delivery O2 Flow Rate FiO2 05/29/19 11:52 Nasal Cannula 2.0 05/29/19 11:00 98.0 104 16 109/56 (73) 96 98.0 Intake and Output 05/29/19 07:00 Intake Total 1530 ml Balance 1530 ml Intake Oral 1530 ml # Voids 2 Physical Exam Heart: Normal S1, Normal S2 General: Alert, Oriented X3 Lungs: Clear to auscultation Neuro: Normal speech Psych/Mental Status: Mental status NL Assessment Assessment Problems Medical Problems: (1) Hypokalemia Status: Acute Assessment and Plan: 49-year-old female with metastatic breast cancer on Xeloda, admitted for hypotension and electrolyte abnormality 1. Hand-foot syndrome: Continue pain meds, she has Aquaphor, can use Vaseline as well for keeping area moist 2. Peripheral neuropathy: gabapentin as needed 3. Recent cerebral vein thrombosis: Fine to continue eliquis 4. hypokalemia - K 3.3 5. Metastatic breast cancer: Xeloda is on hold, would dose reduce at a minimum before re-dosing, I d/w her hospice options as she mentions she is concerned about getting sick again with chemo, she has a cousin who works in hospice. I d/w Dr García. I d/w pt and and they would like to proceed with [facility]. 6. Mouth sores: Valtrex 500 twice a day and triple mix as needed Comment Review of Relevant I have reviewed the following items danya (where applicable) has been applied. Labs Laboratory Tests Test 05/28/19 04:55 Sodium Level 145 mmol/L (136-145) Potassium Level 3.3 mmol/L (3.5-5.1) Chloride Level 109 mmol/L (98-107) Carbon Dioxide Level 27 mmol/L (21-32) Anion Gap 9 (6-14) Blood Urea Nitrogen 6 mg/dL (7-20) Creatinine 0.6 mg/dL (0.6-1.0) Estimated GFR (Cockcroft-Gault) 106.3 Glucose Level 83 mg/dL (70-99) Calcium Level 6.8 mg/dL (8.5-10.1) Magnesium Level 2.2 mg/dL (1.8-2.4) Medications Current Medications Potassium Chloride (Klor-Con) 40 meq 1X ONCE PO Last administered on 05/24/19at 17:33; Start 05/24/19 at 17:15; Stop 05/24/19 at 17:16; Status DC Ondansetron HCl (Zofran) 4 mg PRN Q8HRS PRN IV NAUSEA/VOMITING; Start 05/24/19 at 18:15; Stop 05/25/19 at 18:14; Status DC Morphine Sulfate (Morphine Sulfate) 4 mg PRN Q2HR PRN IV PAIN; Start 05/24/19 at 18:15; Stop 05/25/19 at 18:14; Status DC Acetaminophen (Tylenol) 650 mg PRN Q4HRS PRN PO FEVER; Start 05/24/19 at 18:15; Stop 05/25/19 at 18:14; Status DC Potassium Chloride/Water 100 ml @ 100 mls/hr Q1H IV Last administered on 05/24/19at 22:54; Start 05/24/19 at 19:00; Stop 05/24/19 at 22:59; Status DC Albuterol Sulfate (Ventolin Neb Soln) 2.5 mg PRN Q6HRS PRN INH SHORTNESS OF BREATH; Start 05/24/19 at 22:00; Stop 05/29/19 at 12:29; Status DC Alprazolam (Xanax) 0.5 mg PRN BID PRN PO ANXIETY; Start 05/24/19 at 22:00; Stop 05/29/19 at 12:29; Status DC Apixaban (Eliquis) 5 mg BID PO Last administered on 05/29/19at 09:35; Start 05/24/19 at 22:30; Stop 05/29/19 at 12:29; Status DC Atorvastatin Calcium (Lipitor) 20 mg HS PO Last administered on 05/28/19at 20:42; Start 05/24/19 at 22:30; Stop 05/29/19 at 12:29; Status DC Carvedilol (Coreg) 6.25 mg BIDWMEALS PO Last administered on 05/28/19at 18:44; Start 05/25/19 at 08:00; Stop 05/29/19 at 12:29; Status DC Cyclobenzaprine HCl (Flexeril) 10 mg TID PRN PRN PO MUSCLE SPASMS Last administered on 05/28/19 20:42; Start 05/24/19 at 22:00; Stop 05/29/19 at 12:29; Status DC Gabapentin (Neurontin) 900 mg TID PO Last administered on 05/29/19 09:35; Start 05/24/19 at 22:30; Stop 05/29/19 at 12:29; Status DC Albuterol/ Ipratropium (Duoneb) 3 ml RTQID NEB Last administered on 05/29/19 11:52; Start 05/25/19 at 08:00; Stop 05/29/19 at 12:29; Status DC Montelukast Sodium (Singulair) 10 mg HS PO Last administered on 05/28/19at 20:43; Start 05/24/19 at 22:30; Stop 05/29/19 at 12:29; Status DC Quetiapine Fumarate (SEROquel) 25 mg QHS PO Last administered on 05/28/19 20:45; Start 05/24/19 at 22:30; Stop 05/29/19 at 12:29; Status DC Topiramate (Topamax) 200 mg BID PO Last administered on 05/29/19 09:34; Start 05/24/19 at 22:30; Stop 05/29/19 at 12:29; Status DC Non-Formulary Medication (Capecitabine (Xeloda)) 2,000 mg BIDWMEALS PO ; Start 05/25/19 at 08:00; Stop 05/25/19 at 13:23; Status DC Sumatriptan Succinate (Imitrex) 100 mg PRN Q2HR PRN PO MIGRAINE HEADACHE; Start 05/25/19 at 07:30; Stop 05/29/19 at 12:29; Status DC Fluticasone Propionate (Flonase) 2 spray DAILY NS Last administered on 09:37; Start 05/25/19 at 09:00; Stop 05/29/19 at 12:29; Status DC Non-Formulary Medication (Fluticasone/ Salmeterol (Advair 250-50 Diskus)) 1 inh BID IH ; Start 05/25/19 at 09:00; Status UNV Cetirizine HCl (ZyrTEC) 10 mg HS PO Last administered on 05/28/19 20:44; Start 05/25/19 at 21:00; Stop 05/29/19 at 12:29; Status DC Oxycodone HCl (Roxicodone) 10 mg PRN Q6HRS PRN PO PAIN; Start 05/24/19 at 22:00; Stop 05/29/19 at 12:29; Status DC Oxycodone HCl (OxyCONTIN) 20 mg BID PO Last administered on 05/29/19at 09:36; Start 05/24/19 at 22:30; Stop 05/29/19 at 12:29; Status DC Prochlorperazine Maleate (Compazine) 10 mg Q6HRS PO Last administered on 05/29/19 05:42; Start 05/25/19 at 00:00; Stop 05/29/19 at 12:29; Status DC Venlafaxine HCl (Effexor Xr) 225 mg DAILY PO Last administered on 05/29/19 09:36; Start 05/25/19 at 09:00; Stop 05/29/19 at 12:29; Status DC Budesonide (Pulmicort) 0.5 mg RTBID NEB Last administered on 05/29/19at 08:04; Start 05/25/19 at 08:00; Stop 05/29/19 at 12:29; Status DC Albuterol Sulfate (Ventolin Neb Soln) 2.5 mg RTQID NEB ; Start 05/25/19 at 08:00; Stop 05/29/19 at 12:29; Status DC Potassium Chloride/Water 100 ml @ 100 mls/hr Q1H IV Last administered on 05/25/19at 10:00; Start 05/25/19 at 07:00; Stop 05/25/19 at 10:59; Status DC Potassium Chloride/Water 100 ml @ 100 mls/hr Q1H IV Last administered on 05/25/19at 18:00; Start 05/25/19 at 13:00; Stop 05/25/19 at 16:59; Status DC Info (Anti-Coagulation Monitoring By Pharmacy) 1 each PRN DAILY PRN MC SEE COMMENTS Last administered on 05/28/19at 10:34; Start 05/25/19 at 09:00; Stop 05/29/19 at 12:29; Status DC Multi-Ingredient Mouthwash/Gargle (Magic Mouthwash) 10 ml PRN QID PRN PO MOUTH PAIN Last administered on 05/28/19at 20:55; Start 05/25/19 at 10:15; Stop 05/29/19 at 12:29; Status DC Valacyclovir HCl (Valtrex) 500 mg BID PO Last administered on 05/29/19at 09:34; Start 05/25/19 at 11:00; Stop 05/29/19 at 12:29; Status DC Potassium Chloride/Water 100 ml @ 100 mls/hr Q1H IV Last administered on 05/26/19at 04:31; Start 05/25/19 at 23:45; Stop 05/26/19 at 03:44; Status DC Potassium Chloride/Water 100 ml @ 100 mls/hr Q1H IV ; Start 05/26/19 at 11:30; Stop 05/26/19 at 06:17; Status DC Potassium Chloride/Water 100 ml @ 100 mls/hr Q1H IV Last administered on 05/26/19at 09:13; Start 05/26/19 at 06:30; Stop 05/26/19 at 08:29; Status DC Potassium Chloride (Klor-Con) 20 meq DAILYWBKFT PO ; Start 05/26/19 at 08:30; Stop 05/26/19 at 08:10; Status DC Potassium Chloride (Klor-Con) 40 meq 1X ONCE PO Last administered on 05/26/19at 09:11; Start 05/26/19 at 08:30; Stop 05/26/19 at 08:31; Status DC Potassium Chloride (Klor-Con) 20 meq DAILYWBKFT PO Last administered on 05/29/19at 09:35; Start 05/27/19 at 08:00; Stop 05/29/19 at 12:29; Status DC Potassium Chloride/Water 100 ml @ 100 mls/hr Q1H IV Last administered on 05/26/19at 23:41; Start 05/26/19 at 17:30; Stop 05/26/19 at 21:29; Status DC Potassium Chloride/Water 100 ml @ 100 mls/hr Q1H IV Last administered on 05/27/19at 13:22; Start 05/27/19 at 08:30; Stop 05/27/19 at 12:29; Status DC Potassium Chloride (Klor-Con) 20 meq 1X ONCE PO Last administered on 05/27/19at 11:09; Start 05/27/19 at 08:15; Stop 05/27/19 at 08:16; Status DC Sodium Chloride 1,000 ml @ 100 mls/hr Q10H PRN IV PER PROTOCOL Last administered on 05/27/19at 08:00; Start 05/27/19 at 08:00; Stop 05/29/19 at 12:29; Status DC Potassium Chloride/Water 100 ml @ 100 mls/hr Q1H IV Last administered on 05/28/19at 18:50; Start 05/28/19 at 10:00; Stop 05/28/19 at 13:59; Status DC Potassium Chloride (Klor-Con) 20 meq 1X ONCE PO Last administered on 05/28/19at 09:33; Start 05/28/19 at 09:30; Stop 05/28/19 at 09:31; Status DC Active Scripts Active Klor-Con M20 (Potassium Chloride) 20 Meq Tab.er.prt 20 Meq PO DAILYWBKFT 30 Days Seroquel (Quetiapine Fumarate) 25 Mg Tablet 1 Tab PO QHS Reported Gabapentin 300 Mg Capsule 900 Mg PO TID Eliquis (Apixaban) 5 Mg Tablet 5 Mg PO BID Oxycontin (Oxycodone HCl) 20 Mg Tab.er.12h 20 Mg PO BID Compazine (Prochlorperazine Maleate) 10 Mg Tablet 10 Mg PO Q6HRS Topiramate 100 Mg Tablet 2 Tab PO BID Venlafaxine Hcl Er (Venlafaxine Hcl) 225 Mg Tab.er.24 1 Tab PO DAILY Xanax (Alprazolam) 0.5 Mg Tablet 1 Tab PO PRN BID PRN Levocetirizine Dihydrochloride 5 Mg Tablet 5 Mg PO HS Carvedilol (Carvedilol) 6.25 Mg Tablet 6.25 Mg PO BIDWMEALS Oxycodone Hcl Immed.release (Oxycodone Hcl) 10 Mg Tablet 10 Mg PO Q6HRS PRN Relpax (Eletriptan Hbr) 40 Mg Tablet 40 Mg PO PRN PRN Flonase Allergy Relief (Fluticasone Propionate) 9.9 Ml [place].susp 2 Sprays NS DAILY Duoneb 0.5-3(2.5) Mg/3 Ml (Albuterol/Ipratropium) 3 Ml Ampul.neb 3 Ml NEB QID Proair Hfa Inhaler (Albuterol Sulfate) 8.5 Gm Hfa.aer.ad 1 Puff INH PRN Q6HRS PRN Advair 250-50 Diskus (Fluticasone/Salmeterol) 1 Each Disk.w.dev 1 Inh IH BID Cyclobenzaprine Hcl 10 Mg Tablet 10 Mg PO TID PRN PRN Atorvastatin Calcium 40 Mg Tablet 20 Mg PO HS Singulair Tablet (Montelukast Sodium) 10 Mg Tablet 10 Mg PO HS Vitals/I & O Vital Sign - Last 24 Hours 05/28/19 05/28/19 05/28/19 05/28/19 14:52 15:04 15:58 18:44 Temp 98.2 98.2 Pulse 98 97 Resp 18 B/P (MAP) 92/59 (70) 110/54 Pulse Ox 97 98 O2 Delivery Nasal Cannula Nasal Cannula Nasal Cannula O2 Flow Rate 2.0 2.0 4.0 05/28/19 05/28/19 05/28/19 05/28/19 19:39 20:00 20:45 22:50 Temp 98.3 98.2 98.3 98.2 Pulse 100 103 Resp 20 16 18 B/P (MAP) 110/53 (72) 93/61 (72) Pulse Ox 96 96 97 O2 Delivery Nasal Cannula Nasal Cannula Nasal Cannula Nasal Cannula O2 Flow Rate 2.0 2.0 2.0 2.0 05/29/19 05/29/19 05/29/19 05/29/19 00:45 02:52 07:00 08:06 Temp 98.0 97.8 98.0 97.8 Pulse 100 102 Resp 18 18 18 B/P (MAP) 117/50 (72) 96/59 (71) Pulse Ox 98 98 100 99 O2 Delivery Nasal Cannula Nasal Cannula Nasal Cannula O2 Flow Rate 2.0 2.0 2.0 2.0 05/29/19 05/29/19 05/29/19 08:15 11:00 11:52 Temp 98.0 98.0 Pulse 104 Resp 16 B/P (MAP) 109/56 (73) Pulse Ox 96 O2 Delivery Nasal Cannula Nasal Cannula Nasal Cannula O2 Flow Rate 2.0 2.0 2.0 Intake and Output 05/28/19 05/28/19 05/29/19 15:00 23:00 07:00 Intake Total 500 ml 1030 ml Balance 500 ml 1030 ml Nutrition Consultation Dietary Evaluation: Recommendations by RD: Protein supplementation Comments: Continue w/cardiac diet as ordered, honor food preferences, and provide snacks as requested; can liberalize to regular if needed to promote PO intake/allow more food options REC Ensure TID (chocolate or vanilla) Expected Outcomes/Goals: PO intake to meet >75% est needs Interpretation of weight loss: >20% in 1 year Malnutrition Findings: Food and Nutrition Intake (Mod: <75% est energy req 7days Weight Status: Overweight JEREMY MELO MD May 29, 2019 12:54
--- NOTE | 2019-05-29 17:20 | DS ---
DATE OF DISCHARGE: 05/29/2019 ADMISSION DIAGNOSES: Hypokalemia, history of breast cancer with bilateral mastectomies, anemia, respiratory failure, hypotension, metastatic breast cancer, left effusions, anxiety, asthma, previous tobacco abuse. DISCHARGE DIAGNOSIS: Progression of disease with terminal breast cancer. She is being discharged with hospice. CONSULTS: Dr. Lauren Gambino. PROCEDURES: None. HOSPITAL COURSE: The patient is a pleasant middle-aged female who has metastatic breast cancer to the liver and bones, who basically presented with potassium of 2.1. This was discovered in outpatient setting with Dr. Lauren Gambino. She was admitted. We replaced her potassium. We have given her physical therapy, occupational therapy to the best we could. Basically, she has got poor functional status and her long-term prognosis is extremely guarded. She wants to go home with [facility]. PHYSICAL EXAMINATION: The patient was seen and examined this morning. HEART: Tones were normal. LUNGS: Diminished. EXTREMITIES: Trace edema. PSYCHIATRIC: She seems anxious, but wants to go home. DISPOSITION: Home with [facility]. ACTIVITY: As tolerated. DIET: Low sodium. MEDICATIONS: Please see the MRAD. TOTAL TIME: 32 minutes. MARY POOL DO DR: DEEP/manjit JOB#: [id number] / [id number]
== END 2019-05-29 12:25 | disposition hospice, home (50) | DRG 640 ==
LOC: ER 15:23 → 2 SOUTH 17:34
PROVIDERS: ADMIT Internal Medicine; ATTEND Internal Medicine
DX: E87.6 Hypokalemia (principal); J96.21 Acute and chronic respiratory failure with hypoxia; E43 Unspecified severe protein-calorie malnutrition; C79.51 Secondary malignant neoplasm of bone; C78.7 Secondary malignant neoplasm of liver and intrahepatic bile duct; J90 Pleural effusion, not elsewhere classified; G43.909 Migraine, unspecified, not intractable, without status migrainosus; J44.9 Chronic obstructive pulmonary disease, unspecified; F17.210 Nicotine dependence, cigarettes, uncomplicated; E78.5 Hyperlipidemia, unspecified; I10 Essential (primary) hypertension; F32.9 Major depressive disorder, single episode, unspecified; F41.9 Anxiety disorder, unspecified; K21.9 Gastro-esophageal reflux disease without esophagitis; K58.9 Irritable bowel syndrome, unspecified; M19.90 Unspecified osteoarthritis, unspecified site; G62.9 Polyneuropathy, unspecified; D64.9 Anemia, unspecified; I95.9 Hypotension, unspecified; F41.8 Other specified anxiety disorders; C50.919 Malignant neoplasm of unspecified site of unspecified female breast; L27.1 Localized skin eruption due to drugs and medicaments taken internally; T45.1X5A Adverse effect of antineoplastic and immunosuppressive drugs, initial encounter; Z87.01 Personal history of pneumonia (recurrent); Z85.41 Personal history of malignant neoplasm of cervix uteri; Z90.710 Acquired absence of both cervix and uterus; Z90.13 Acquired absence of bilateral breasts and nipples; Z82.49 Family history of ischemic heart disease and other diseases of the circulatory system; Z83.3 Family history of diabetes mellitus; Z68.28 Body mass index [BMI] 28.0-28.9, adult; Z79.01 Long term (current) use of anticoagulants; Z80.1 Family history of malignant neoplasm of trachea, bronchus and lung; Z17.1 Estrogen receptor negative status [ER-]; Y92.89 Other specified places as the place of occurrence of the external cause
CPT/HCPCS: 36415; 80048; 80053; 83735; 84132; 85007; 85025; 93005; 94640; 94760; J3480; J7030; J7620; J7626; Q0164; 99285-25; G0378